=== PATIENT | female | born 1935 | race Caucasian/White ===

== ENCOUNTER 2017-04-06 18:38 | Observation (INO) | payer MEDICARE, SELFPAY ==
[2017-03-30 15:04] VITALS: BP 109/56; PULSE 84; RESP 16; TEMP 36.2; O2SAT 93; BMI 29.5
--- NOTE | 2017-03-30 15:11 | SDCEKG_ITS ---
Test Reason : Blood Pressure : / mmHG Vent. Rate : 079 BPM Atrial Rate : 079 BPM P-R Int : 190 ms QRS Dur : 178 ms QT Int : 466 ms P-R-T Axes : 005 -60 077 degrees QTc Int : 534 ms Normal sinus rhythm Left axis deviation Left bundle branch block Abnormal ECG Confirmed by BILLIE PUENTES, NAYAN ([id number]), design editor AKASH BENÍTEZ ([id number]) on 03/31/2017 1:47:31 PM Referred By: ROSHNI Confirmed By:NAYAN WISE MD
[2017-03-30 15:44] LABS: Hematocrit 43.4 % (37-47); Hemoglobin 14.7 g/dl (12.0-15.0); Mean Corp Hgb Conc 33.9 g/gl (32-36); Mean Corpuscular Hgb 30.2 pg (27.0-32.0); Mean Corpuscular Volume 89.3 fL (81-99); Mean Platelet Vol. 10.7 fl (6.2-12.0); Platelet Count 242 K/mm3 (150-450); RBC Distribution Width CV 12.6 % (11.6-14.6); RBC Distribution Width SD 40.5 fl (35.1-43.9); Red Blood Count 4.86 M/mm3 (4.2-5.4); White Blood Count 8.2 K/mm3 (4.4-11.0)
[2017-03-30 15:48] LABS: ALB/GLOB Ratio 0.9 RATIO (0.9-2.4); AST(SGOT) 13 U/L (15-37); Alanine Aminotransfer ALT/SGPT 19 U/L (12-78); Albumin, Serum 3.9 g/dL (3.4-5.0); Alkaline Phosphatase 99 U/L (45-117); Anion Gap 10 (5-15); BUN 21 mg/dL (7-18); BUN/Creat Ratio 20.4 RATIO (10-20); Calcium,Total 10.4 mg/dL (8.5-10.1); Chloride 102 mmol/L (98-107); Creatinine, Serum 1.03 mg/dL (0.55-1.02); EST Glomerular Filtration Rate 55 mL/min (>60); Est Glom Filt Rate - Afr Amer 66 mL/min (>60); Estimated Creatinine Clearance 30.77 ml/min; Globulin 4.2 g/dL (2.3-3.5); Glucose 173 mg/dL (70-110); Potassium 4.2 mmol/L (3.5-5.1); Protein, Total 8.1 g/dL (6.4-8.2); Sodium Level 138 mmol/L (136-145)
[2017-03-30 15:51] LABS: Scan Indicated on CBC? Y/N NO
[2017-03-31 16:16] LABS: International Normalized Ratio 1.1; Prothrombin Time (Protime)PT. 13.6 SECONDS (11.7-14.9)
[2017-04-03 14:49] LABS: Hemoglobin A1c 7.4 % (4.2-6.3)
[2017-04-06] VITALS (9 sets, daily range): BP systolic 102–156; BP diastolic 53–83; PULSE 64–80; RESP 14–18; TEMP 36.3–37.2; O2SAT 94–97; BMI 29.5; BMI 30.2
[2017-04-06 13:43] LABS: Partial Thromboplast Time 23.9 Seconds (24.1-36.2)
[2017-04-06] MEDS: Vasopressin 20 UNITS/ML Vial (15:01)
--- NOTE | 2017-04-06 15:01 | HYST_PTH ---
PATIENT: NICOLAS JACOBSON LOC: MS3 U#:[id number] AGE/SX: 81/F ROOM: [facility] RE04/06/[address]: Dr. Reena Mcgarry MD : 1935 BED: 1 DIS: 04/07/2017 SPEC #: [id number] RECD: 04/07/17 09:18 STATUS: LACIE PATELLiliana #: [id number] JOSUÉ: 04/06/17 15:[address]: Reena Ledbetter DEPT: SURGICAL PATHOLOGY RECD BY: Hero Zamora ENTERED: 04/07/17 11:48 SP TYPE: HYSTERECT OTHR DR: Dr. Maria Teresa Pedroza DO Tissues: A - Uterus, NOS B - Vagina, NOS Procedures: Surgery Specimen Level II Surgery Specimen Level V HEADER OPERATION: Hysterectomy, vaginal, A & P, bilateral salpingo-oophorectomy PRE-OP DIAGNOSIS: Uterine prolapse, cystocele, rectocele TISSUE SUBMITTED: A - Uterus, cervix, bilateral tubes and ovaries, B - Vaginal mucosa MICROSCOPIC DIAGNOSIS A. Cervix, hysterectomy: Cervix - hyperkeratosis, squamous metaplasia, nabothian cysts and chronic inflammation. Endometrium - multiple polyps with simple cystic hyperplasia without atypia. [place] endometrium with atrophy and cystic change. Myometrium - adenomyosis. Right and left ovaries - corpora albicantia and benign inclusion cysts. Right and left fallopian tubes - no pathologic change. B. Vaginal mucosa, anterior and posterior repair: Hyperkeratosis. No evidence of dysplasia. AM:nick 04/10/17 MICROSCOPIC DESCRIPTION Slides are reviewed. GROSS DESCRIPTION A - Received in fixative is one container labeled with the patient's name and designated uterus, cervix, bilateral fallopian tubes and ovaries. The specimen consists of a hysterectomy specimen consisting of uterus with cervix and detached bilateral fallopian tubes and ovaries. The uterus with cervix weighs 67 gm and measures 8.5 x 5 x 4 cm. The serosal surface is little, glistening. The external os is slit-like in contour. The endocervical canal measures 3 cm in length. The posterior endocervical wall shows a mucosal polyp measuring 1 cm in greatest dimension. The triangular endometrial cavity measures 4 cm in length and 3 cm in width. The endometrium shows multiple little polyps, the largest measuring 2.5 x 1.3 x 0.5 cm. The myometrial wall underneath the polyps is not indurated. The endometrium without polyps measures 0.1 cm in thickness. Polyps are noted both anterior and posterior wall. Sections of the uterine wall do not reveal any mass lesion. The uterine wall measures up to 1.3 cm in thickness. The fallopian tubes are not identified as right or left. One of the fallopian tubes measures 2.2 cm in length and 0.3 cm in diameter. The end is identified. Sections reveal unremarkable cut surfaces. The adjacent ovary measures 2.5 x 1.5 x 0.7 cm. Sections reveal unremarkable cut surfaces. The second fallopian tube consists of only fimbrial end and measures 1 x 0.5 x 0.3 cm. The adjacent ovary measures 2 x 1 x 0.7 cm. Sections reveal unremarkable cut surfaces. Housekeeping Staff sections are submitted in 12 cassettes as follows: 1 - anterior cervix, 2 - posterior cervix, 3-5 - anterior uterine wall, 6-10 - posterior uterine wall (entire endometrium including all the polyps are submitted), 11 - one fallopian tube and adjacent ovary, 12 - second fallopian tube and adjacent ovary. B - Received in fixative is one container labeled with the patient's name and designated vaginal mucosa. The specimen consists of multiple irregular fragments of mucosal tissue that in aggregate measure 7 x 5 x 2 cm. No mucosal lesion is identified. Multiple instrumentation tirado are noted. Housekeeping Staff sections are submitted in one cassette. / NAIDA:nick 04/07/17 TC:1 CPT: 74082, 90302
--- NOTE | 2017-04-06 17:58 | SUR.OPER ---
04/06/17 1758 - Liane Wilks - Registered Nurse: FAMILY GIVEN AN UPDATE ON THE STATUS OF THE PATIENT
[2017-04-06] MEDS: Estrogens,Conj. 1 Tube 1 DOSE (18:21)
[2017-04-06] MEDS: Ketorolac 15 MG/ML Vial IV (19:19)
[2017-04-06] MEDS: 0.9% Normal Saline 1,000 ML 100 ML IV (20:45)
[2017-04-06 22:26] LABS: Bedside Glucose 249 mg/dL (70-110)
[2017-04-07] MEDS: Ketorolac 15 MG/ML Vial IV ×2 (02:08→11:23)
[2017-04-07] MEDS: 0.9% NaCl Peripheral Flush Adult/Peds IV ×2 (02:09→11:23)
--- NOTE | 2017-04-07 05:31 | PCM.PN.OB ---
Subjective: Denies chest pain, shortness of breath. She has been out of bed. No flatus yet. Tolerating crackers PO. Denies pain and reports she feels well. Relates prior history of borderline diabetes on inquiry. Objective: AVSS - Physical Exam General: Alert, Oriented x3, Cooperative, No apparent distress HEENT: Atraumatic, Normocephalic Lungs: Clear to auscultation, Normal air movement, No rhonchi, No wheeze, No rales Cardiovascular: Regular rate, Regular Rhythm, Normal S1, Normal S2 Abdomen: Bowel Sounds Present, Soft, Non Tender, Non-Distended, - - Vaginal packing removed and approximately 80% saturated. Extremities: No edema, No Calf Tenderness Neurological: Neuro grossly intact Psych/Mental Status: Normal Affect, Appropriate, Alert and oriented to time, place, person, mood and affect Vital Signs Temp Pulse Resp BP Pulse Ox 99.0 F 77 16 114/63 95 04/06/17 23:57 04/06/17 23:57 04/06/17 23:57 04/06/17 23:57 04/06/17 23:57 Oxygen Flow Rate 2 Oxygen Delivery Method Nasal Cannula Weight: 70.1 kg Body Mass Index (BMI) 30.2 Intake and Output for Last 24 Hours 04/05/17 04/06/17 04/07/17 23:59 23:59 23:59 Intake Total 1300 933 Output Total 50 180 Balance 1250 753 Laboratory Tests Past 24 Hrs 04/06/17 13:15 APTT 23.9 L POC Glucose 04/06/17 22:17 POC Glucose 249 H Assessment/Plan 81yo POD#1 s/p TVH, BSO, AP repair doing well. -d/c IVF, Regular diet -Reviewed with patient HbA1C and blood sugars elevated c/w diabetes. Will start Metformin today, SSI as needed. Plan to follow up with PCP for further management. -Vaginal packing removed, will monitor pad counts -Urine output adequate, d/c pino -Resume home medications
[2017-04-07 06:00] VITALS: BP 119/61; PULSE 85; RESP 16; TEMP 37.1; O2SAT 95
[2017-04-07 06:29] LABS: Hematocrit 32.9 % (37-47); Hemoglobin 10.6 g/dl (12.0-15.0); Mean Corp Hgb Conc 32.2 g/gl (32-36); Mean Corpuscular Hgb 29.1 pg (27.0-32.0); Mean Corpuscular Volume 90.4 fL (81-99); Mean Platelet Vol. 10.9 fl (6.2-12.0); Platelet Count 184 K/mm3 (150-450); RBC Distribution Width CV 12.6 % (11.6-14.6); RBC Distribution Width SD 41.3 fl (35.1-43.9); Red Blood Count 3.64 M/mm3 (4.2-5.4); White Blood Count 10.1 K/mm3 (4.4-11.0)
[2017-04-07 06:30] LABS: Scan Indicated on CBC? Y/N NO
[2017-04-07 06:49] LABS: Anion Gap 13 (5-15); BUN 23 mg/dL (7-18); BUN/Creat Ratio 18.1 RATIO (10-20); Calcium,Total 8.7 mg/dL (8.5-10.1); Chloride 102 mmol/L (98-107); Creatinine, Serum 1.27 mg/dL (0.55-1.02); EST Glomerular Filtration Rate 43 mL/min (>60); Est Glom Filt Rate - Afr Amer 52 mL/min (>60); Estimated Creatinine Clearance 24.95 ml/min; Glucose 228 mg/dL (70-110); Potassium 4.5 mmol/L (3.5-5.1); Sodium Level 138 mmol/L (136-145)
[2017-04-07 06:56] LABS: Bedside Glucose 236 mg/dL (70-110)
[2017-04-07 07:00] VITALS: O2SAT 92
[2017-04-07] MEDS: Aspirin E.C. 81 MG Tablet PO (08:22)
[2017-04-07 09:42] VITALS: BP 124/62; PULSE 86; RESP 20; TEMP 37.3; O2SAT 93
[2017-04-07] MEDS: Ramipril 2.5 MG Capsule PO (09:45)
[2017-04-07] MEDS: Furosemide 40 MG Tablet PO (09:45)
[2017-04-07] MEDS: Carvedilol 25 MG Tablet PO (09:46)
[2017-04-07] MEDS: Enoxaparin 30 MG/0.3 ML Syringe SC (09:46)
[2017-04-07 11:21] LABS: Bedside Glucose 115 mg/dL (70-110)
--- NOTE | 2017-04-07 11:40 | CASEMGMT ---
AUDREY PICKENS meet with pt to discuss disposition plans. Pt is alert, oriented, and agreeable to participate in assessment. AUDREY PICKENS assessment complete. Please see link for further details. DISPOSITION: Pt to return home with help of her daughters post op care. Pt states she is normally independent at home - uses cane occ if out of apartment.
--- NOTE | 2017-04-07 13:37 | PCM.DC.VHY ---
Discharge Diet: Carb Control Diet Discharge Activity: Return to Normal Activity, May not drive while taking narcotic pain medications., May Shower, May Take a Tub Bath May resume sexual activity in: 6 weeks Lifting Restrictions: 10 lb Call your doctor if you observe: Fever of 101 or Higher, Inability to urinate, Inability to have a bowel movement, Using more than one pad per hour, Shortness of breath, Chest pain, Calf discomfort, Uncontrolled pain Suture Line Care: Avoid Pulling/Pushing Instructions: Eating Out When You Have Diabetes, Oral Medications for Type 2 Diabetes Allergies/Adverse Reactions: Allergies No Known Allergies Allergy (Verified 03/30/17 14:45) Medications to take at Discharge Aspirin E.C. [Ecotrin] 81 mg PO DAILY@0800 03/30/17 Carvedilol [Coreg (Beta Megan)] 25 mg PO DAILY 03/30/17 Furosemide [Lasix] 40 mg PO DAILY 03/30/17 Ramipril [Altace] 2.5 mg PO DAILY 03/30/17 Acetaminophen [Tylenol] 1,000 mg PO Q8H PRN PRN tablet 04/07/17 Docusate Sodium [Colace] 100 mg PO BID PRN PRN #60 capsule 04/07/17 GlyBURIDE [Micronase] 1.25 mg PO DAILY@0800 #30 tablet 04/07/17 Ibuprofen 600 mg PO TID PRN #30 tablet 04/07/17 Oxycodone [Oxyir] 5 - 10 mg PO Q4H PRN PRN tablet 04/07/17 Oxycodone [Oxyir] 5 mg PO Q6H PRN PRN #12 tablet 04/07/17 The following prescriptions were given: Oxycodone [Oxyir] 5 mg PO Q6H PRN PRN #12 tablet PRN Reason: Pain Docusate Sodium [Colace] 100 mg PO BID PRN PRN #60 capsule PRN Reason: Constipation GlyBURIDE [Micronase] 1.25 mg PO DAILY@0800 #30 tablet Ibuprofen 600 mg PO TID PRN #30 tablet PRN Reason: Pain Primary Care Physician: Maria Teresa Pedroza DO [Primary Care Provider] - Please follow up with your Primary Care Physician in: 2-4 weeks Please Follow Up With: Reena Garcia When: 04/20/17 2:15pm
[2017-04-07 13:40] VITALS: BP 107/53; PULSE 79; RESP 16; TEMP 36.9; O2SAT 93
--- NOTE | 2017-04-07 14:22 | OP.PCM_ITS ---
Problem List (1) Prolapse of female pelvic organs Status: Acute Qualifiers: Prolapse type: complete uterovaginal prolapse Qualified Code(s): N81.3 - Complete uterovaginal prolapse (2) Cystocele with rectocele Status: Acute Report of Operation Date of Procedure: 04/06/17 Pre-Operative Diagnosis: Uterovaginal prolapse, cystocele, rectocele Post-Operative Diagnosis: Uterovaginal prolapse, cystocele, rectocele Surgery/Procedure Performed:: Total vaginal hysterectomy, bilateral salpingo- oophorectomy, anterior and posterior repair, perineorrhaphy Description of Surgical Findings:: Normal tubes, uterus and ovaries. submarine element coordinator: Capo Hinds submarine element coordinator: Clarence Morelos Type of Anesthesia:: General Anesthesiologist: Kimberley Browning Specimen's removed: 1. uterus, tubes, ovaries. 2. vaginal mucosa Estimated Blood Loss (mL): 250 Description of Procedure: The patient was taken to the operating room and sent and was performed. She is placed in the dorsal supine position and induced under general anesthesia and intubated. She was then repositioned to dorsal lithotomy and an examination under anesthesia performed. The perineum was then prepped and draped in sterile fashion. A Joseph catheter was placed into the bladder. There was complete procidentia. Vasopressin was injected at the cervix. A circumferential incision was made along the cervix using a scalpel. The vesicovaginal space was developed using sharp dissection. Attention was also turned posteriorly to develop the rectal vaginal space and identified the posterior cul-de-sac peritoneum. This peritoneum was entered sharply. A long weighted speculum was placed into the posterior cul-de-sac. All sutures for the hysterectomy were 0 Vicryl. The uterosacral ligaments, cardinal ligaments, uterine vessels, and utero-ovarian ligaments were serially clamped cut and suture ligated using 0 Vicryl sutures. The uterus and cervix were excised at the cutting of the utero-ovarian ligaments. Attention was turned to the right adnexa. This was grasped using a Verónica clamp and the infundibulopelvic ligament was Constance clamps. The tube and ovary were excised. The pedicle was doubly suture ligated using 0 Vicryl with excellent hemostasis. In similar fashion attention was turned to the left adnexa and salpingo-oophorectomy was performed. Attention was turned to the cystocele. Vasopressin was injected for hydrodissection and hemostasis locally. The apical vaginal mucosa starting from the vaginal cuff was dissected from the underlying supportive tissue and the perpendicular incision was made at the midline to expose the cystocele sac. The cystocele was sharply and bluntly dissected off the vaginal mucosa. This required an extensive period of time as there was significant scarring suggesting prior surgery and the presence of what appeared to be sutures. The surrounding fascia was reapproximated using 2-0 Vicryl interrupted sutures to reduce the cystocele with significant improvement. The apical vaginal mucosa was reapproximated using 2-0 Vicryl to the level of the cuff. Attention was turned posteriorly. A rectovaginal exam was performed. The transverse incision was made at the distal vagina. The posterior vaginal mucosa was subsequently sharply dissected at the midline and superiorly from the underlying connective tissue and rectocele sac. A perpendicular incision was made to the previous one to expose the rectocele sac. The rectocele sac was further dissected from the vaginal mucosa. The fascia was reapproximated using 2-0 Vicryl with reduction of the rectocele. Rectal exam was performed and there was significant improvement. The vaginal mucosa was then reapproximated using 2-0 Vicryl to the level of the transverse incision. The incision was made along the perineum and the perineal skin excised. Perineorrhaphy was performed using a 2-0 Vicryl crown stitch and reapproximating the perineal skin subcuticularly. There is good hemostasis. The peritoneum apical to the vaginal cuff was pursestringed using 0 Vicryl and incorporating the uterosacral pedicles. The vaginal cuff was reapproximated using 0 Vicryl figure of 8 sutures. The vagina was packed using estrogen cream covered bulky light bandage. The procedure was complete. The sponge, instrument, and needle counts were correct ?2. - Admit VTE Documentation VTE Present on Admission: No VTE Mechan Device Prophylaxis: SCD's VTE Pharm Prophylaxis ordered?: No
--- NOTE | 2017-04-07 14:26 | PCM.DC.SUM ---
Discharge Date and Diagnosis - Problem List Patient Problems: Active and Suspected Problems Cystocele with rectocele (Acute) Prolapse of female pelvic organs (Acute) S/P vaginal hysterectomy (Acute) Date of Admission: 04/06/17 Date of Discharge: 04/07/17 - Primary Discharge Diagnosis Active and Suspected Problems Cystocele with rectocele (Acute) Prolapse of female pelvic organs (Acute) S/P vaginal hysterectomy (Acute) - Secondary Discharge Diagnosis Chronic Problems Benign essential HTN (Chronic) Chronic systolic CHF (congestive heart failure) (Chronic) EF 25% DM2 (diabetes mellitus, type 2) (Chronic) Dyslipidemia (Chronic) Hospital Course and Treatment Operations: - - Hysterectomy, bilateral salpingo-oophorectomy, anterior and posterior repair Procedures: None Summary of Care Provided: The patient is a 81 year old F admitted for scheduled surgery. She underwent a total vaginal hysterectomy, bilateral salpingo-oophorectomy, anterior repair, and posterior repair as planned. The procedure was uncomplicated. The patient was admitted to the floor. She was out of bed, ambulating, voiding, tolerating a regular diet, with pain well controlled. Her blood sugar was initially elevated thus she was started on glyburide 1.25 mg p.o. on postoperative day 1. She was discharged home on postoperative day 1. Discharge Diet: Carb Control Diet Discharge Activity: Return to Normal Activity, May not drive while taking narcotic pain medications., May Shower, May Take a Tub Bath May resume sexual activity in: 6 weeks Call your doctor if you observe: Fever of 101 or Higher, Inability to urinate, Inability to have a bowel movement, Using more than one pad per hour, Shortness of breath, Chest pain, Calf discomfort, Uncontrolled pain Suture Line Care: Avoid Pulling/Pushing Home Medications: Medications to take at Discharge Aspirin E.C. [Ecotrin] 81 mg PO DAILY@0800 03/30/17 Carvedilol [Coreg (Beta Megan)] 25 mg PO DAILY 03/30/17 Furosemide [Lasix] 40 mg PO DAILY 03/30/17 Ramipril [Altace] 2.5 mg PO DAILY 03/30/17 Acetaminophen [Tylenol] 1,000 mg PO Q8H PRN PRN tablet 04/07/17 Docusate Sodium [Colace] 100 mg PO BID PRN PRN #60 capsule 04/07/17 GlyBURIDE [Micronase] 1.25 mg PO DAILY@0800 #30 tablet 04/07/17 Ibuprofen 600 mg PO TID PRN #30 tablet 04/07/17 Oxycodone [Oxyir] 5 - 10 mg PO Q4H PRN PRN tablet 04/07/17 Oxycodone [Oxyir] 5 mg PO Q6H PRN PRN #12 tablet 04/07/17 Following Prescrptions Were Given to Patient: Oxycodone [Oxyir] 5 mg PO Q6H PRN PRN #12 tablet PRN Reason: Pain Docusate Sodium [Colace] 100 mg PO BID PRN PRN #60 capsule PRN Reason: Constipation GlyBURIDE [Micronase] 1.25 mg PO DAILY@0800 #30 tablet Ibuprofen 600 mg PO TID PRN #30 tablet PRN Reason: Pain Primary Care Physician: Maria Teresa Pedroza DO [Primary Care Provider] - Please follow up with your Primary Care Physician in: 2-4 weeks Please Follow Up With: Reena Garcia When: 04/20/17 2:15pm Patient Instructions: Oral Medications for Type 2 Diabetes, Eating Out When You Have Diabetes Meaningful Use Info Meaningful Use Diagnoses (Choose all that apply): None applicable
== END 2017-04-07 15:09 | disposition home or self-care (01) ==
LOC: MS3 09-27 13:17 → SDC 09-27 13:17
PROVIDERS: Admitting Provider Obstetrics & Gynecology; Family Provider Family Medicine; PCP Family Medicine; Visit Provider Obstetrics & Gynecology
DX: N81.3 Complete uterovaginal prolapse (principal); I44.7 Left bundle-branch block, unspecified; I25.10 Atherosclerotic heart disease of native coronary artery without angina pectoris; I11.0 Hypertensive heart disease with heart failure; E78.5 Hyperlipidemia, unspecified; I50.22 Chronic systolic (congestive) heart failure; Z95.810 Presence of automatic (implantable) cardiac defibrillator; Z79.899 Other long term (current) drug therapy
CPT/HCPCS: 57260; 58262; 36415; 80048; 80053; 82962; 83036; 85027; 85610; 85730; 86850; 86900; 88302; 88305; 88307; 93005; 96361; 96365; 96366; 96372; 96375; 96376; 99218; J7030; J7040; J7120; A4216; G0378; G0379; J2405

== ENCOUNTER → 2017-11-09 15:44 | Outpatient (CLI) | payer MEDICARE, SELFPAY ==
--- NOTE | 2017-11-09 12:20 | VUL_PTH ---
PATIENT: NICOLAS JACOBSON LOC: AMEENA U#:[id number] AGE/SX: 89/F ROOM: RE11/09/[address]: Dr. Reena Mcgarry MD : 1935 BED: DIS: SPEC #: [id number] RECD: 11/09/17 15:34 STATUS: LACIE URBANO #: [id number] JOSUÉ: 11/09/17 12:[address]: Reena Ledbetter DEPT: SURGICAL PATHOLOGY RECD BY: Chacorta Mccormick ENTERED: 11/10/17 09:25 SP TYPE: VULVA BX OTHR DR: Dr. Maria Teresa Pedroza DO Tissues: A - Labium, NOS B - Labium majus Procedures: Surgery Specimen Level IV HEADER OPERATION: Vulvar biopsy PRE-OP DIAGNOSIS: Pruritus, lichen sclerosus TISSUE SUBMITTED: A. Left labia, B. Right labial fold, majora MICROSCOPIC DIAGNOSIS A. Left labia, biopsy: Consistent with lichen sclerosus. B. Right labial fold, majora, biopsy: Consistent with lichen sclerosus. Hyperkeratosis. NAIDA:nick 11/13/17 MICROSCOPIC DESCRIPTION Slides are reviewed. GROSS DESCRIPTION A - Received in fixative is one container labeled with the patient's name and designated left labia. The specimen consists of a piece of little-white skin measuring 0.5 x 0.3 x 0.1 cm. The specimen is totally submitted in one cassette. B - Received in fixative is one container labeled with the patient's name and designated right labia. The specimen consists of a piece of little-white skin measuring 0.4 x 0.3 x 0.1 cm. The specimen is totally submitted in one cassette. / NAIDA:nick 11/10/17 TC:5 [facility]: [id number] x2
[2017-11-12 20:06] LABS: HSV 1 By PCR Negative (Negative)
[2017-11-13 09:07] LABS: HSV 2 By PCR Negative (Negative)
== END ==
PROVIDERS: Family Provider Family Medicine; PCP Family Medicine; Visit Provider Obstetrics & Gynecology
DX: N90.4 Leukoplakia of vulva (principal); L29.2 Pruritus vulvae; N94.89 Other specified conditions associated with female genital organs and menstrual cycle
CPT/HCPCS: 87529; 88305

== ENCOUNTER → 2018-03-22 08:05 | Outpatient (CLI) | payer MEDICARE, SELFPAY ==
[2018-03-22 09:48] LABS: Hemoglobin A1c 6.4 % (4.2-6.3)
[2018-03-22 09:57] LABS: Microalbumin:Creatinine Ratio 18.6 mg/g CRE (<30 mg/g CRE)
[2018-03-22 10:04] LABS: ALB/GLOB Ratio 0.8 RATIO (0.9-2.4); AST(SGOT) 19 U/L (15-37); Alanine Aminotransfer ALT/SGPT 20 U/L (13-56); Albumin, Serum 3.4 g/dL (3.2-5.0); Alkaline Phosphatase 81 U/L (45-117); Anion Gap 7 (5-15); BUN 25 mg/dL (7-18); BUN/Creat Ratio 20.5 RATIO (10-20); Calcium,Total 9.8 mg/dL (8.5-10.1); Chloride 104 mmol/L (98-107); Creatinine, Serum 1.22 mg/dL (0.55-1.02); EST Glomerular Filtration Rate 45 mL/min (>60); Est Glom Filt Rate - Afr Amer 54 mL/min (>60); Globulin 4.1 g/dL (2.2-4.2); Glucose 117 mg/dL (74-106); Potassium 4.2 mmol/L (3.5-5.1); Protein, Total 7.5 g/dL (6.4-8.2); Sodium Level 140 mmol/L (136-145)
== END ==
PROVIDERS: Family Provider Family Medicine; PCP Family Medicine; Visit Provider Family Medicine
DX: E11.65 Type 2 diabetes mellitus with hyperglycemia (principal)
CPT/HCPCS: 36415; 80053; 82043; 82570; 83036

== ENCOUNTER → 2018-05-31 14:01 | Outpatient (CLI) | payer MEDICARE, SELFPAY ==
[2018-05-31 16:12] LABS: Anion Gap 9 (5-15); BUN 17 mg/dL (7-18); Calcium,Total 10.2 mg/dL (8.5-10.1); Chloride 103 mmol/L (98-107); Creatinine, Serum 1.21 mg/dL (0.55-1.02); EST Glomerular Filtration Rate 45 mL/min (>60); Est Glom Filt Rate - Afr Amer 55 mL/min (>60); Glucose 138 mg/dL (74-106); Magnesium 2.1 mg/dL (1.6-2.6); Potassium 4.2 mmol/L (3.5-5.1); Sodium Level 136 mmol/L (136-145)
== END ==
PROVIDERS: Family Provider Family Medicine; PCP Family Medicine; Visit Provider Internal Medicine Cardiovascular Disease
DX: I10 Essential (primary) hypertension (principal); Z95.810 Presence of automatic (implantable) cardiac defibrillator
CPT/HCPCS: 36415; 80048; 83735; 84443

== ENCOUNTER → 2018-06-18 06:39 | Outpatient (CLI) | payer MEDICARE, SELFPAY ==
--- NOTE | 2018-06-18 06:41 | ECHOCS_ITS ---
Version 2 Reason For Study: Vfib Procedure This was a 2D Doppler, Color Flow transthoracic echocardiogram. Exam performed in department. Left Ventricle Moderately dilated left ventricle. The estimated ejection fraction is 25 %. Severe segmental systolic dysfunction (see wall motion). Transmitral and pulmonary venous doppler flow suggestive of impaired relaxation of left ventricle. Transmitral diastolic flow velocities suggest mild (stage 1) diastolic dysfunction (reversed pattern). There is severe global hypokinesis of the left ventricle. Right Ventricle Normal RV size. ICD or pacer leads identified within the right ventricle. mobile echogenic structure on the pacer lead. Normal systolic function. Atria Normal left atrium. Normal right atrium. Mitral Valve Mild diffuse mitral valve thickening. Mild (1+) eccentric mitral valve insufficiency. Tricuspid Valve Normal tricuspid valve. Mild (1+) tricuspid valve insufficiency. Pulmonary artery systolic pressure is 36 mmHg. Aortic Valve Normal aortic valve. Pulmonic Valve The pulmonic valve is not well visualized. Great Vessels Normal aortic root. The pulmonary artery is normal size. Normal inferior vena cava. Pericardium/Pleural No pericardial effusion. Medication Definity0.3ml given slow IV push to enhance endocardial definition. MMode/2D Measurements & Calculations LVIDd: 6.2 cm IVSd: 1.2 cm Ao root diam: 2.6 cm LVIDs: 5.7 cm LVPWd: 1.1 cm RVDd: 3.1 cm FS: 8.0 % LAV(MOD-bp): 45.6 ml LVAd ap4: 40.0 cm2 SV(MOD-sp4): 32.0 ml LAV(MOD-bp) Indexed: 26.9 ml/m2 EDV(MOD-sp4): 149.6 ml LAV(MOD-sp2): 55.1 ml EDV(sp4-el): 151.9 ml LAV(MOD-sp4): 38.0 ml LVAs ap4: 34.4 cm2 ESV(MOD-sp4): 117.6 ml ESV(sp4-el): 117.8 ml EF(MOD-sp4): 21.4 % EF(sp4-el): 22.5 % SV(sp4-el): 34.2 ml LA A4 area: 15.1 cm2 RA A4 area: 12.2 cm2 Doppler Measurements & Calculations MV E max grey: 96.6 cm/sec Lat Peak E' Grey: 9.0 cm/sec Med Peak E' Grey: 8.3 cm/sec MV A max grey: 144.9 cm/sec E/E' lat: 10.8 E/E' med: 11.6 MV E/A: 0.67 Ao V2 max: 150.8 cm/sec LV V1 max: 98.8 cm/sec PA V2 max: 94.3 cm/sec Ao max P.1 mmHg LV V1 max P.9 mmHg Ao V2 mean: 111.7 cm/sec Ao mean P.3 mmHg Ao V2 VTI: 30.9 cm TR max grey: 284.0 cm/sec TR max P.3 mmHg Interpretation Summary Moderately dilated left ventricle. The estimated ejection fraction is 25 %. Severe segmental systolic dysfunction (see wall motion). Transmitral diastolic flow velocities suggest mild (stage 1) diastolic dysfunction (reversed pattern). Mild (1+) tricuspid valve insufficiency. Pulmonary artery systolic pressure is 36 mmHg. Mobile echogenic structure on the pacer lead.- likely thrombus Ordering Physician: Mukul Lunsford Referring Physician: Mukul Lunsford Performed By: Michelle Portillo, DANIEL, RVT
--- NOTE | 2018-06-18 09:09 | STRESSREP ---
Stress Test Report Pharmacologic myocardial perfusion stress test. 82-year-old lady with a history of nonischemic cardiomyopathy and ICD shock. Stress protocol: Resting EKG demonstrates normal sinus rhythm with a rate of 82 bpm left bundle branch block is noted. Resting blood pressure 130/80 mmHg. 0.4 mg of regadenoson was infused per usual protocol followed by rapid intravenous saline flush injection. Continuous EKG monitoring was performed. The maximum heart rate attained was 98 bpm which was 71% of maximum predicted heart rate the maximum workload was 1 metabolic equivalent. The patient maintained sinus rhythm throughout the recording with a left bundle branch block pattern. No changes could be noted. Myocardial perfusion protocol. 10.0 mCi of technetium 99m sestamibi was injected at rest. 0.4 mg of regadenoson was infused per usual protocol peak infusion 30.5 mCi of technetium 99m sestamibi was injected stress images were obtained stress and rest images were reconstructed and compared in the short axis vertical long horizontal long axis. Gated images were also obtained per Perfusion SPECT analysis: Review of the images demonstrate reduced perfusion noted involving the anterior apical apex and lateral apical mena. The rest of the mena appear to be fairly well perfused. This is present on the stress and rest images to a similar extent. No obvious reversibility is noted suggest ischemia. Gated SPECT analysis: The gated ejection fraction is 29% with a dyskinetic apex. Conclusion: Cardiomyopathy present. No obvious coronary ischemia present. Previous apical infarct cannot be completely excluded.
== END ==
PROVIDERS: Family Provider Family Medicine; PCP Family Medicine; Referring Provider Internal Medicine Cardiovascular Disease; Visit Provider Internal Medicine Cardiovascular Disease
DX: I25.10 Atherosclerotic heart disease of native coronary artery without angina pectoris (principal); I11.0 Hypertensive heart disease with heart failure; I50.22 Chronic systolic (congestive) heart failure; I27.20 Pulmonary hypertension, unspecified; I49.01 Ventricular fibrillation; I44.7 Left bundle-branch block, unspecified; I34.0 Nonrheumatic mitral (valve) insufficiency; I42.0 Dilated cardiomyopathy; I47.2 Ventricular tachycardia; Z95.810 Presence of automatic (implantable) cardiac defibrillator
CPT/HCPCS: 78452; 93017; 93306; A9500; Q9957; A4216; C8929; J2785

== ENCOUNTER → 2018-11-01 09:33 | Outpatient (CLI) | payer MEDICARE, SELFPAY ==
[2018-08-31 10:44] VITALS: BMI 32.2
[2018-11-01 11:19] LABS: Absolute Neutrophil Count 3.3 X10^3/uL (2.0-7.7); Basophil# 0.02 X10^3/uL; Basophil% 0.3 % (0-1); Eosinophil# 0.42 X10^3/uL; Eosinophils% 5.8 % (0-5); Hematocrit 43.3 % (37-47); Hemoglobin 13.8 g/dl (12.0-15.0); Lymphocyte % 42.5 % (19-41); Mean Corp Hgb Conc 31.9 g/gl (32-36); Mean Corpuscular Hgb 29.1 pg (27.0-32.0); Mean Corpuscular Volume 91.4 fL (81-99); Mean Platelet Vol. 11.2 fl (6.2-12.0); Monocyte# 0.49 X10^3/uL; Monocyte% 6.7 % (0-10); Neutrophil # 3.26 X10^3/uL (2.7-7.7); Neutrophil % 44.6 % (47-70); POSITIVE COUNT NO; POSITIVE DIFFERENTIAL NO; POSITIVE MORPHOLOGY NO; Platelet Count 191 K/mm3 (150-450); RBC Distribution Width SD 42.9 fl (35.1-43.9); Red Blood Count 4.74 M/mm3 (4.2-5.4); White Blood Count 7.3 K/mm3 (4.4-11.0)
[2018-11-01 11:54] LABS: ALB/GLOB Ratio 0.9 RATIO (0.9-2.4); AST(SGOT) 17 U/L (15-37); Alanine Aminotransfer ALT/SGPT 22 U/L (13-56); Albumin, Serum 3.6 g/dL (3.2-5.0); Alkaline Phosphatase 89 U/L (45-117); Anion Gap 11 (5-15); BUN 19 mg/dL (7-18); BUN/Creat Ratio 16.5 RATIO (10-20); Calcium,Total 9.9 mg/dL (8.5-10.1); Chloride 106 mmol/L (98-107); Cholesterol 195 mg/dL (200); Creatinine, Serum 1.15 mg/dL (0.55-1.02); EST Glomerular Filtration Rate 48 mL/min (>60); Est Glom Filt Rate - Afr Amer 58 mL/min (>60); Globulin 4.1 g/dL (2.2-4.2); Glucose 123 mg/dL (74-106); High Density Lipoprotein 41 mg/dL; Potassium 4.2 mmol/L (3.5-5.1); Protein, Total 7.7 g/dL (6.4-8.2); Sodium Level 143 mmol/L (136-145); Triglycerides 85 mg/dL; Very Low Density Lipoprotein 17 mg/dL (5-40)
[2018-11-01 12:16] LABS: Hemoglobin A1c 6.7 % (4.2-6.3)
== END ==
PROVIDERS: Family Provider Family Medicine; PCP Family Medicine; Referring Provider Family Medicine; Visit Provider Family Medicine
DX: E11.9 Type 2 diabetes mellitus without complications (principal); E78.5 Hyperlipidemia, unspecified; Z51.81 Encounter for therapeutic drug level monitoring
CPT/HCPCS: 36415; 80053; 80061; 83036; 85025

== ENCOUNTER → 2019-04-05 08:35 | Outpatient (CLI) | payer MEDICARE, SELFPAY ==
[2019-03-21 11:21] VITALS: BMI 31.8
--- NOTE | 2019-04-05 08:38 | ECHOL_ITS ---
Reason For Study: RV LEAD THROMBUS Procedure This was a limited 2D transthoracic echocardiogram. Exam performed in department. Left Ventricle Normal LV size. Apical false tendon noted. Moderately severe global left ventricular systolic dysfunction. The estimated ejection fraction is 30 %. There is moderate to severe global hypokinesis of the left ventricle. Right Ventricle Normal RV size. ICD or pacer leads identified within the right ventricle. Normal systolic function. Mitral Valve Normal mitral valve. Tricuspid Valve Normal tricuspid valve. Mild tricuspid valve insufficiency. Aortic Valve Normal aortic valve. Pulmonic Valve Normal pulmonic valve. Great Vessels Normal aortic root. The pulmonary artery is normal size. Normal inferior vena cava. MMode/2D Measurements & Calculations LVIDd: 4.6 cm IVSd: 0.98 cm LAV(MOD-bp): 43.5 ml LVIDs: 4.0 cm LVPWd: 1.1 cm LAV(MOD-bp) Indexed: 25.5 ml/m2 RVDd: 3.0 cm FS: 13.4 % LAV(MOD-sp2): 45.9 ml LAV(MOD-sp4): 42.0 ml LVAd ap4: 47.4 cm2 SV(MOD-sp4): 45.9 ml SV(sp4-el): 54.4 ml EDV(MOD-sp4): 201.0 ml EDV(sp4-el): 213.8 ml LVAs ap4: 40.8 cm2 ESV(MOD-sp4): 155.1 ml ESV(sp4-el): 159.3 ml EF(MOD-sp4): 22.9 % EF(sp4-el): 25.5 % LA A4 area: 15.9 cm2 RA A4 area: 13.5 cm2 Doppler Measurements & Calculations TR max nicolas: 237.7 cm/sec TR max P.6 mmHg Interpretation Summary Normal LV size. Moderately severe global left ventricular systolic dysfunction. Mild tricuspid valve insufficiency. Mobile filamentous structure noted on the RV lead. Not any worse. Ordering Physician: Mukul Lunsford Referring Physician: ARNIE CARPIO Performed By: Ava Burks, RDCS, RVT
== END ==
PROVIDERS: Family Provider Family Medicine; PCP Family Medicine; Referring Provider Internal Medicine Cardiovascular Disease; Visit Provider Internal Medicine Cardiovascular Disease
DX: I42.8 Other cardiomyopathies (principal)
CPT/HCPCS: 93308

== ENCOUNTER → 2020-04-29 08:33 | Outpatient (CLI) | payer MEDICARE, SELFPAY ==
[2019-09-23 08:42] VITALS: BMI 32.5
[2020-04-29 09:28] LABS: Absolute Lymphocyte Count 3.25 X10^3/uL (0.83-4.51); Basophil# 0.03 X10^3/uL; Basophil% 0.4 % (0-1); Eosinophil# 0.38 X10^3/uL; Eosinophils% 5.4 % (0-5); Hematocrit 40.2 % (37-47); Hemoglobin 13.5 g/dL (12.0-15.0); Lymphocyte # 3.25 X10^3/ul (4.0); Lymphocyte % 46.2 % (19-41); Mean Corp Hgb Conc 33.6 g/dL (32-36); Mean Corpuscular Hgb 30.1 pg (27.0-32.0); Mean Corpuscular Volume 89.7 fL (81-99); Mean Platelet Vol. 9.9 fl (6.2-12.0); Monocyte# 0.39 X10^3/uL; Monocyte% 5.5 % (0-10); NRBC Flagged by Analyzer 0 % (0-5); Neutrophil # 2.97 X10^3/uL (2.7-7.7); Neutrophil % 42.2 % (47-70); Platelet Count 221 K/mm3 (150-450); RBC Distribution Width CV 12.3 % (11.6-14.6); RBC Distribution Width SD 39.9 fl (35.1-43.9); Red Blood Count 4.48 M/mm3 (4.2-5.4)
[2020-04-29 09:50] LABS: Hemoglobin A1c 6.5 % (3.8-5.6)
[2020-04-29 09:54] LABS: Microalbumin,Random Urine 81.6 mg/L (NO RANGE EST.); Microalbumin:Creatinine Ratio 68.6 mg/g CRE (<30 mg/g CRE)
[2020-04-29 10:00] LABS: ALB/GLOB Ratio 0.8 RATIO (0.9-2.4); AST(SGOT) 14 U/L (15-37); Alanine Aminotransfer ALT/SGPT 17 U/L (13-56); Albumin, Serum 3.4 g/dL (3.2-5.0); Alkaline Phosphatase 77 U/L (45-117); Anion Gap 4 (5-15); BUN 23 mg/dL (7-18); BUN/Creat Ratio 22.8 RATIO (10-20); Calcium,Total 9.9 mg/dL (8.5-10.1); Chloride 111 mmol/L (98-107); Cholesterol 210 mg/dL (200); Creatinine, Serum 1.01 mg/dL (0.55-1.02); EST Glomerular Filtration Rate 55 mL/min (>60); Est Glom Filt Rate - Afr Amer 67 mL/min (>60); Glucose 133 mg/dL (74-106); High Density Lipoprotein 43 mg/dL; Potassium 4.3 mmol/L (3.5-5.1); Protein, Total 7.4 g/dL (6.4-8.2); Sodium Level 141 mmol/L (136-145); Triglycerides 101 mg/dL; Very Low Density Lipoprotein 20 mg/dL (5-40)
== END ==
PROVIDERS: PCP Family Medicine; Referring Provider Family Medicine; Visit Provider Family Medicine
DX: E11.9 Type 2 diabetes mellitus without complications (principal); E78.5 Hyperlipidemia, unspecified; I10 Essential (primary) hypertension; Z51.81 Encounter for therapeutic drug level monitoring; Z79.01 Long term (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 of anticoagulants
CPT/HCPCS: 36415; 80053; 80061; 82043; 82570; 83036; 85025

== ENCOUNTER → 2020-11-25 15:15 | Outpatient (CLI) | payer MEDICARE, SELFPAY ==
[2020-11-11 13:37] VITALS: BMI 30.2
[2020-11-25 17:22] LABS: Absolute Lymphocyte Count 3.08 X10^3/uL (0.83-4.51); Absolute Neutrophil Count 4.4 X10^3/uL (2.0-7.7); Basophil# 0.03 X10^3/uL; Basophil% 0.4 % (0-1); Eosinophil# 0.31 X10^3/uL; Eosinophils% 3.7 % (0-5); Lymphocyte # 3.08 X10^3/ul (4.0); Mean Corp Hgb Conc 32.6 g/dL (32-36); Mean Corpuscular Hgb 29.6 pg (27.0-32.0); Mean Corpuscular Volume 90.9 fL (81-99); Monocyte# 0.47 X10^3/uL; Monocyte% 5.6 % (0-10); NRBC Flagged by Analyzer 0 % (0-5); Neutrophil # 4.43 X10^3/uL (2.7-7.7); Neutrophil % 53.2 % (47-70); Platelet Count 236 K/mm3 (150-450); RBC Distribution Width CV 12.4 % (11.6-14.6); Red Blood Count 4.73 M/mm3 (4.2-5.4); White Blood Count 8.3 K/mm3 (4.4-11.0)
[2020-11-25 18:09] LABS: ALB/GLOB Ratio 0.9 RATIO (0.9-2.4); AST(SGOT) 16 U/L (15-37); Alanine Aminotransfer ALT/SGPT 20 U/L (13-56); Albumin, Serum 3.5 g/dL (3.2-5.0); Alkaline Phosphatase 92 U/L (45-117); Anion Gap 5 (5-15); BUN 23 mg/dL (7-18); BUN/Creat Ratio 21.5 RATIO (10-20); Calcium,Total 10.2 mg/dL (8.5-10.1); Chloride 105 mmol/L (98-107); Creatinine, Serum 1.07 mg/dL (0.55-1.02); EST Glomerular Filtration Rate 52 mL/min (>60); Est Glom Filt Rate - Afr Amer 63 mL/min (>60); Glucose 114 mg/dL (74-106); Potassium 4.2 mmol/L (3.5-5.1); Protein, Total 7.5 g/dL (6.4-8.2); Sodium Level 139 mmol/L (136-145); T4 Free Direct 1.15 ng/dL (0.76-1.46); Thyroid Stim Hormone (TSH) 1.33 uIU/mL (0.358-3.74)
[2020-11-25 18:12] LABS: Hemoglobin A1c 6.2 % (3.8-5.6)
[2020-11-25 18:25] LABS: Microalbumin,Random Urine 35.2 mg/L (NO RANGE EST.); Microalbumin:Creatinine Ratio 61.3 mg/g CRE (<30 mg/g CRE)
== END ==
PROVIDERS: Nurse Practitioner Family; PCP Family Medicine; Visit Provider Family Medicine
DX: E11.9 Type 2 diabetes mellitus without complications (principal); R80.9 Proteinuria, unspecified; I44.7 Left bundle-branch block, unspecified; I47.2 Ventricular tachycardia; I11.0 Hypertensive heart disease with heart failure; I50.22 Chronic systolic (congestive) heart failure; I25.10 Atherosclerotic heart disease of native coronary artery without angina pectoris; T85.868A Thrombosis due to other internal prosthetic devices, implants and grafts, initial encounter; I42.8 Other cardiomyopathies; E78.5 Hyperlipidemia, unspecified; Z51.81 Encounter for therapeutic drug level monitoring
CPT/HCPCS: 80053; 82043; 82570; 83036; 83735; 84439; 84443; 85025

== ENCOUNTER 2020-12-29 16:15 | Inpatient (IN) | payer MEDICARE, SELFPAY ==
[2020-11-11 13:37] VITALS: BMI 30.2
[2020-12-29] VITALS (10 sets, daily range): BP systolic 104–141; BP diastolic 57–93; PULSE 94–114; RESP 16–24; TEMP 36.5–36.6; O2SAT 96–99; BMI 28.5; BMI 30.2
--- NOTE | 2020-12-29 16:25 | EKG12_ITS ---
Test Reason : Blood Pressure : / mmHG Vent. Rate : 115 BPM Atrial Rate : 115 BPM P-R Int : 000 ms QRS Dur : 186 ms QT Int : 434 ms P-R-T Axes : 000 -60 067 degrees QTc Int : 600 ms Wide QRS rhythm ; Likely Sinus Tachycardia Left axis deviation Left bundle branch block Abnormal ECG Confirmed by BRANDY PUENTES, DONNY ([id number]), continuity editor ALEJANDRO MARTINES ([id number]) on 01/01/2021 8:04:29 AM Referred By: TEREZA Confirmed By:JAYLENE NAVA MD
--- NOTE | 2020-12-29 16:28 | ED.VIS.GEN ---
History of Present Illness Chief Complaint: GI Bleed Informant: Patient Onset: Yesterday - Any dark coffee-ground material last evening, Days - Black stools noted 2 days ago Context: Sudden Onset Timing: Intermittent Quality: GI bleed Location: Upper Current Severity: Moderate Maximum Severity: Moderate Worsened by: Patient on Eliquis Relieved by: Nothing Associated Symptoms: Orthostatic symptoms Narrative: She is 85-year-old woman who states she is on Eliquis because she had a clot related to her pacemaker that was placed in 2014. She states the stone banker that placed the pacemaker was from [employer]. She denies fever, chills night sweats. Denies ocular, visual or auditory symptoms. She denies chest discomfort or dyspnea on exertion. She does report lightheadedness with standing. She denies abdominal pain. Denies back pain. She denies dysuria, frequency, urgency or hematuria. She denies bruising easily. She has no other complaints. 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 Denies: Chills, Fever, Subjective, Sweats Eyes: Denies: Visual changes - bilaterally, Blurred Vision - bilaterally ENT: Denies: Bilateral ear pain, Right ear pain, Rhinorrhea Cardiovascular: Denies: Chest pain, Palpitations Respiratory: Denies: Dyspnea, Cough, Dyspnea on exertion Gastrointestinal: Reports: Nausea, Vomiting, Melena. Denies: Abdominal pain, Diarrhea, Constipation, Hematochezia Genitourinary: Denies: Dysuria, Hematuria, Frequency Musculoskeletal: Denies: Myalgias, Arthralgias, Neck pain, Back pain, Swelling, Extremity Pain, -, - Skin: Denies: Rash, Wounds Neurological: Denies: Headache, Weakness, Numbness Psych: Denies: Depression Hematologic: Denies: Easy bruising, Easy bleeding Allergy: Denies: Uticaria Physical Exam Vital Signs/Narrative: Vital Signs Temp Pulse Resp BP Pulse Ox 12/29/20 16:16 98 F 114 H 18 129/90 H 99 Inital Vital Signs reviewed: Yes General: Well nourished, Well developed, No Acute Distress Head: Normocephalic, Atraumatic Eyes: Perrl, EOMI. Negative for: Pale conjunctiva, Scleral icterus ENT: Moist mucous membranes, No rhinorrhea, TM's clear Neck: Supple, Nontender, No lymphadenopathy, No JVD Cardiovascular: Regular rhythm, No murmurs, Normal S1, Normal S2, Tachycardia Respiratory: No distress, CTA bilaterally, Chest nontender Abdomen: Soft, Nontender, Nondistended, Normal bowel sounds Back: Nontender, Normal Inspection Extremities: Nontender, No edema Skin: Normal color, No rash Neurological: Alert, Oriented x3, Cranial nerves II-XII grossly intact, Normal Strength, Normal Sensation Psychological: Normal affect, Normal Mood Diagnostic/Tx/Re-eval Laboratory Results 12/29/20 12/29/20 12/29/20 16:55 16:55 16:55 WBC 10.2 RBC 3.49 L Hgb 10.6 L Hct 31.6 L MCV 90.5 MCH 30.4 MCHC 33.5 RDW Std Deviation 41.2 RDW Coeff of Keren 12.7 Plt Count 221 MPV 11.1 Immature Gran % (Auto) 0.400 Neut % (Auto) 61.6 Lymph % (Auto) 34.3 [place] % (Auto) 3.2 Eos % (Auto) 0.2 Baso % (Auto) 0.3 Absolute Neuts (auto) 6.3 Absolute Lymphs (auto) 3.51 Nucleated RBC % 0 Sodium 141 Potassium 4.1 Chloride 107 Carbon Dioxide 25.0 Anion Gap 9 BUN 60 H Creatinine 1.10 H Estim Creat Clear Calc 29.57 Est GFR (MDRD) Af Amer 61 Est GFR (MDRD) Non-Af 50 L BUN/Creatinine Ratio 54.5 H Glucose 195 H Lactic Acid 2.4 H* Calcium 9.7 Total Bilirubin 0.70 AST 10 L ALT 18 Alkaline Phosphatase 71 Troponin I 0.020 Total Protein 6.7 Albumin 3.3 Globulin 3.4 Albumin/Globulin Ratio 1.0 - EKG Initial EKG Interpretation: Sinus Tachycardia - This tachycardia with a ventricular rate of 115. QRS duration 186 ms and has configuration of left bundle branch block. QT interval 434 ms. [place] to the left. - Medical Decision Making Presents with history and physical findings with upper GI bleed. She is tachycardic. Will obtain basic baseline blood work and type and screen. She received IV Protonix. Case was discussed with Dr. Xiang Robledo who will scope her tomorrow. - Critical Care Time Critical care time (excluding procedures): 30-74 minutes - Critical care time 36 minutes which included obtaining history, physical exam, documentation, review of prior records and labs, interpretation of laboratory results, consultation with surgery for EGD and hospitalist for admission, Discussing w/Patient &/or Family/Market President, Discussing w/Consultants, Arranging Admission or Transfer ED Disposition - Plan for ED Patient: Disposition: Acute Care Hospital [facility] Diagnosis: Hemorrhagic shock, Upper GI bleed, Anemia due to blood loss, acute, Lactic acidosis, Sinus tachycardia, Nonischemic cardiomyopathy, Atherosclerotic heart disease of [place] coronary artery without angina pectoris, residential (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 of anticoagulants Referrals: Maria Teresa Pedroza DO [Primary Care Provider] -
[2020-12-29] MEDS: 0.9% Normal Saline 1,000 ML 1000 ML IV (17:07)
[2020-12-29 17:14] LABS: Absolute Lymphocyte Count 3.51 X10^3/uL (0.83-4.51); Absolute Neutrophil Count 6.3 X10^3/uL (2.0-7.7); Basophil# 0.03 X10^3/uL; Basophil% 0.3 % (0-1); Eosinophil# 0.02 X10^3/uL; Eosinophils% 0.2 % (0-5); Hematocrit 31.6 % (37-47); Hemoglobin 10.6 g/dL (12.0-15.0); Lymphocyte # 3.51 X10^3/ul (0.83-4.51); Lymphocyte % 34.3 % (19-41); Mean Corp Hgb Conc 33.5 g/dL (32-36); Mean Corpuscular Hgb 30.4 pg (27.0-32.0); Mean Corpuscular Volume 90.5 fL (81-99); Mean Platelet Vol. 11.1 fl (6.2-12.0); Monocyte# 0.33 X10^3/uL; Monocyte% 3.2 % (0-10); NRBC Flagged by Analyzer 0 % (0-5); Neutrophil # 6.31 X10^3/uL (2.7-7.7); Neutrophil % 61.6 % (47-70); Platelet Count 221 K/mm3 (150-450); RBC Distribution Width CV 12.7 % (11.6-14.6); RBC Distribution Width SD 41.2 fl (35.1-43.9); Red Blood Count 3.49 M/mm3 (4.2-5.4); White Blood Count 10.2 K/mm3 (4.4-11.0)
[2020-12-29 17:37] LABS: AST(SGOT) 10 U/L (15-37); Alanine Aminotransfer ALT/SGPT 18 U/L (13-56); Albumin, Serum 3.3 g/dL (3.2-5.0); Alkaline Phosphatase 71 U/L (45-117); Anion Gap 9 (5-15); BUN 60 mg/dL (7-18); BUN/Creat Ratio 54.5 RATIO (10-20); Calcium,Total 9.7 mg/dL (8.5-10.1); Chloride 107 mmol/L (98-107); EST Glomerular Filtration Rate 50 mL/min (>60); Est Glom Filt Rate - Afr Amer 61 mL/min (>60); Estimated Creatinine Clearance 29.57 ml/min; Globulin 3.4 g/dL (2.2-4.2); Glucose 195 mg/dL (74-106); Potassium 4.1 mmol/L (3.5-5.1); Protein, Total 6.7 g/dL (6.4-8.2); Sodium Level 141 mmol/L (136-145)
[2020-12-29 17:52] LABS: Lactic Acid 2.4 mmol/L (0.4-1.9)
--- NOTE | 2020-12-29 18:13 | PCM.HP.STD ---
History of Present Illness Date of Admission: 12/29/20 Chief Complaint: GI bleed The patient is a 85 year old F with a PMH as outlined who was admitted on Coumadinvia the ED with a complaint of dark stools and coffee ground emesis. Symptoms started about 2 days prior to admission. Says she has had several episodes of dark stools and also had several episodes of coffee-ground vomiting. She denied any lightheadedness or dizziness, denied any palpitations or abdominal pain. She also denied any bright red blood per rectum. Patient is on Eliquis which she says she takes because she had a blood clot on her pacemaker about 2 years ago. She also admits to taking [id number] pain medication at least once every week because of chronic back pain. Review of symptoms otherwise negative. She tells me she has never had any EGD or colonoscopy before. She also does not have any history of GI bleed. In the ED, temperature was 98 Fahrenheit with blood pressure of 129/90 and pulse rate of 114. Respiratory rate was 18. She was satting at 99% on room air. Chemistry showed creatinine of 1.1 and lactic acid of 2.4. CBC showed hemoglobin of 10.6, with previous hemoglobin done on 11/25/2020 being 14. Her baseline seems to be around 13-14. She has been admitted to be managed for upper GI bleed probably due to peptic ulcer disease. She was started on pantoprazole drip in the ED. 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, implant or graft (Chronic) RV pacemaker lead Atherosclerotic heart disease of [place] coronary artery without angina pectoris (Chronic) Left bundle-branch block (Chronic) Ventricular tachycardia (Chronic) Dyslipidemia (Chronic) Medical History: Medical History (Last Reviewed 11/11/20 @ 13:37 by Wilmer Portillo NP, PUBLIC ADDRESS TECHNICIAN-C) Nonischemic cardiomyopathy (Chronic) I42.8 Chronic systolic (congestive) heart failure (Chronic) I50.22 Essential (primary) hypertension (Chronic) I10 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, implant or graft (Chronic) T85.868A RV pacemaker lead Atherosclerotic heart disease of [place] coronary artery without angina pectoris (Chronic) I25.10 Left bundle-branch block (Chronic) I44.7 Ventricular tachycardia (Chronic) I47.2 Dyslipidemia (Chronic) E78.5 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, N81.6 DM2 (diabetes mellitus, type 2) E11.9 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 Allergies No Known Allergies Allergy (Verified 12/29/20 16:16) Home Medications: Ambulatory Orders Medication Instructions Recorded Acetaminophen [Tylenol] 1,000 mg PO Q8H PRN PRN tab 04/07/17 glimepiride 1 mg tablet PO 14 Days #14 01/10/18 Handicap Parking Placard #1 ea 05/11/20 apixaban 5 mg tablet 5 mg PO BID #180 tab 08/17/20 carvedilol 25 mg tablet 25 mg PO BID #180 tab 10/02/20 ramipril 2.5 mg capsule 2.5 mg PO DAILY #90 cap 10/16/20 furosemide 40 mg tablet 40 mg PO DAILY #90 tab 11/11/20 Surgical History: Surgical History (Last Reviewed 11/11/20 @ 13:37 by Wilmer Portillo PUBLIC ADDRESS TECHNICIAN, PUBLIC ADDRESS TECHNICIAN-C) History of implantable cardiac defibrillator (ICD) (Chronic) Onset Date: 01/31/13 Cataract H26.9 H/O tubal ligation Z98.51 H/O: hysterectomy Z90.710 History of hip replacement Z96.649 History of left heart catheterization Onset Date: 12/17/12 Z98.890 S/P vaginal hysterectomy Surgical History: - - Pacemaker Lives: Alone Smoking Status: Never smoker Alcohol: None Drugs: None Review of Systems Constitutional: Denies: Chills, Fever, Malaise, Weakness, Weight Change HEENT: Denies: Head Aches, Sinus Congestion, Sinus Drainage Cardiovascular: Denies: Chest Pain, Palpitations Respiratory: Denies: Cough, Shortness of Breath, Shortness of breath at rest, Shortness of breath upon exertion, Sputum production Gastrointestinal: Reports: Hematemesis, Hematochezia, Melena. Denies: Abdominal Pain, Nausea, Vomiting Genitourinary: Denies: Dysuria Musculoskeletal: Denies: Joint Pain, Joint Tenderness Skin: Denies: Rash, Wounds Neurological: Denies: Numbness, Tingling, Focal weakness Psychiatric: Denies: Anxiety, Depression, Homicidal Ideations, Suicidal Ideations Hematologic/ Lymphatic: Denies: Easy Bruising, Easy Bleeding VTE Information - Inpt Only VTE Present on Admission: No VTE Pharm Prophylaxis ordered?: No Reason prophylaxis not ordered:: Medical Contraindication - GI bleed Patient Problems: Active and Suspected Problems (Last Reviewed 11/11/20 @ 13:37 by Wilmer Portillo PUBLIC ADDRESS TECHNICIAN, PUBLIC ADDRESS TECHNICIAN-C) Hemorrhagic shock (Acute) Upper GI bleed (Acute) Anemia due to blood loss, acute (Acute) Lactic acidosis (Acute) Sinus tachycardia (Acute) [facility] (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 of anticoagulants (Acute) - Physical Exam Vitals/I&O's: Vital Signs Temp Pulse Resp BP Pulse Ox 98 F 114 H 18 129/90 H 99 12/29/20 16:16 12/29/20 16:16 12/29/20 16:16 12/29/20 16:16 12/29/20 16:16 Oxygen Delivery Method Room Air Weight: 155 lb 12.8 oz Body Mass Index (BMI) 28.5 Intake and Output for Last 24 Hours 12/27/20 12/28/20 12/29/20 23:59 23:59 23:59 Intake Total 35 / 35 Balance 35 / 35 General: Alert, Oriented x3, Cooperative, No apparent distress HEENT: Atraumatic, PERRLA, EOMI, Normocephalic Oral: Dry Mucosa Neck: Supple, No JVD, Negative Carotid Bruits Lungs: Clear to auscultation, Normal air movement, No rhonchi, No wheeze Cardiovascular: Normal S1, Normal S2, No murmurs, Tachycardic Abdomen: Bowel Sounds Present, Soft, Non Tender Extremities: No edema, Capillary Refill Less than 3 Seconds Skin: No rashes, No breakdown Musculoskeletal: No Tenderness to Palpation of Joints or Extremities Lymphatic: No Cervical, Supraclavicular, or Inguinal Adenopathy Neurological: Cranial nerves II-XII grossly intact, Neuro grossly intact, Motor Exam 5/5 strength throughout Psych/Mental Status: Normal Affect, Appropriate, Alert and oriented to time, place, person, mood and affect Laboratory Results 12/29/20 16:55: WBC 10.2, RBC 3.49 L, Hgb 10.6 L, Hct 31.6 L, MCV 90.5, MCH 30.4, MCHC 33.5, RDW Std Deviation 41.2, RDW Coeff of Keren 12.7, Plt Count 221, MPV 11.1, Immature Gran % (Auto) 0.400, Neut % (Auto) 61.6, Lymph % (Auto) 34.3, [place] % (Auto) 3.2, Eos % (Auto) 0.2, Baso % (Auto) 0.3, Absolute Neuts (auto) 6.3, Absolute Lymphs (auto) 3.51, Nucleated RBC % 0 12/29/20 16:55: Sodium 141, Potassium 4.1, Chloride 107, Carbon Dioxide 25.0, Anion Gap 9, BUN 60 H, Creatinine 1.10 H, Estim Creat Clear Calc 29.57, Est GFR (MDRD) Af Amer 61, Est GFR (MDRD) Non-Af 50 L, BUN/Creatinine Ratio 54.5 H, Glucose 195 H, Calcium 9.7, Total Bilirubin 0.70, AST 10 L, ALT 18, Alkaline Phosphatase 71, Troponin I 0.020, Total Protein 6.7, Albumin 3.3, Globulin 3.4, Albumin/Globulin Ratio 1.0 12/29/20 16:55: Lactic Acid 2.4 H* 12/29/20 16:55: Blood Type Pending, Antibody Screen Pending Current Medications Pantoprazole Sodium 80 mg/ (Sodium Chloride) 100 mls @ 10 mls/hr CONT INF Q10H TOM Stop: 12/30/20 02:59 Last Admin: 12/29/20 17:40 Dose: 10 mls/hr Documented by: Assessment/Plan All Active Problems (Last Reviewed 11/11/20 @ 13:37 by Wilmer Portillo PUBLIC ADDRESS TECHNICIAN, PUBLIC ADDRESS TECHNICIAN-C) Hemorrhagic shock (Acute) Upper GI bleed (Acute) Anemia due to blood loss, acute (Acute) Lactic acidosis (Acute) Sinus tachycardia (Acute) [facility] (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 of anticoagulants (Acute) 85 y/o admitted with a complaint of melena stools and coffee ground emesis. #Acute blood loss anemia due to UGI bleed -admit to ICU o.a of tachycardia and elevated lactic acid -type and cross. -consult general surgery -continue IV pantoprazole drip -hold eliquis. #UGI bleed due probably due to peptic ulcer disease -though she denies abdominal pain, she does have a history of use of NSAIDs for chronic pain -hold eliquis -general surgery consulted -management as above -hydrate with IVF #Lactic acidosis: hydrate with IVF and trend #Type 2 diabetes mellitus -hold oral diabetes meds- glimepiride -ISS> Accucheckss ACHS #Hyperlipidemia: on statin #History of thrombus on right ventricle pacemaker lead: Hold Eliquis due to GI bleed. #Hypertension: Continue current meds-ramipril. #CAD: On carvedilol and statin. #History of heart failure with reduced ejection fraction: On furosemide 40 mg daily. Will hold for now on account of GI bleed. DVT prophylaxis: SCDs. No anticoagulation on account of GI bleed GI prophylaxis: On pantoprazole drip as above. Code status: full code Patient counseled extensively about different types of CODE STATUS including full code, DNR CCA and DNR CCA. Patient elects to be full code. Total [id number] time 16 minutes. Inpatient E&M: 91941 Init Hosp L3 Procedures: 24364 Advncd Care Plan 30 Min
--- NOTE | 2020-12-29 18:39 | ED.RN ---
Pt daughter called. Updated on patient condition. Daughter aware pt to be admitted to the ICU. Aware no visitors aloud on that unit. Pt other daughter may attempt to see pt while still in the ED. Daughter also aware that plan is for Dr. Robledo to scope pt tomorrow.
[2020-12-29] MEDS: 0.9% Normal Saline 1,000 ML 125 ML IV (20:40)
[2020-12-29 21:08] LABS: Reflex Lactate? Y
--- NOTE | 2020-12-29 23:00 | PCM.CONS.GEN ---
Problem List (1) Upper GI bleed Status: Acute Reason for Consult Date of Consultation: 12/29/20 Reason for Consultation: GI bleed History of Present Illness: The patient is a 85 year old F presented to the emergency room with coffee-ground emesis and black stools. The patient has not had any vomiting since admission. Patient does not note any abdominal pain. She is on Eliquis due to AICD. The patient says that she has not had a bowel movement since being admitted. She has never had GI bleed in the past. 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, implant or graft (Chronic) RV pacemaker lead Atherosclerotic heart disease of [place] coronary artery without angina pectoris (Chronic) Left bundle-branch block (Chronic) Ventricular tachycardia (Chronic) Dyslipidemia (Chronic) Medical History: Medical History (Last Reviewed 11/11/20 @ 13:37 by Wilmer Portillo GUARD RAIL INSTALLER, GUARD RAIL INSTALLER-C) Nonischemic cardiomyopathy (Chronic) I42.8 Chronic systolic (congestive) heart failure (Chronic) I50.22 Essential (primary) hypertension (Chronic) I10 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, implant or graft (Chronic) T85.868A RV pacemaker lead Atherosclerotic heart disease of [place] coronary artery without angina pectoris (Chronic) I25.10 Left bundle-branch block (Chronic) I44.7 Ventricular tachycardia (Chronic) I47.2 Dyslipidemia (Chronic) E78.5 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, N81.6 DM2 (diabetes mellitus, type 2) E11.9 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 Allergies No Known Allergies Allergy (Verified 12/29/20 16:16) Home Medications: Ambulatory Orders Medication Instructions Recorded glimepiride 1 mg tablet 1 mg PO DAILY 14 Days #14 01/10/18 Apixaban [Eliquis] 5 mg PO BID 12/29/20 Carvedilol 25 mg PO BID 12/29/20 Furosemide 40 mg PO DAILY 12/29/20 Multivit-Min/Iron/Folic/Lutein 1 each PO DAILY 12/29/20 [Centrum Silver Women Tablet] Ramipril 2.5 mg PO DAILY 12/29/20 Surgical History: Surgical History (Last Reviewed 11/11/20 @ 13:37 by Wilmer Portillo GUARD RAIL INSTALLER, GUARD RAIL INSTALLER-C) History of implantable cardiac defibrillator (ICD) (Chronic) Onset Date: 01/31/13 Cataract H26.9 H/O tubal ligation Z98.51 H/O: hysterectomy Z90.710 History of hip replacement Z96.649 History of left heart catheterization Onset Date: 12/17/12 Z98.890 S/P vaginal hysterectomy Surgical History: - - Pacemaker Lives: Alone Smoking Status: Never smoker Tobacco Use: Non-smoker Alcohol: None Drugs: None - *Family History Maternal Family History: Family History (Last Reviewed 11/11/20 @ 13:37 by Wilmer Portillo GUARD RAIL INSTALLER, GUARD RAIL INSTALLER-C) Mother CAD (coronary artery disease) CHF (congestive heart failure) Father Diabetes Review of Systems Constitutional: Denies: Anorexia, Fever HEENT: Denies: Difficulty Swallowing Cardiovascular: Denies: Chest Pain Respiratory: Denies: Cough, Shortness of Breath Gastrointestinal: Reports: Hematemesis, Melena, Vomiting. Denies: Abdominal Pain, Nausea Genitourinary: Denies: Dysuria Musculoskeletal: Denies: Joint Tenderness Skin: Denies: Jaundice Neurological: Denies: Balance problems Psychiatric: Denies: Anxiety Hematologic/ Lymphatic: Denies: Anemia Patient Problems: Active and Suspected Problems (Last Reviewed 11/11/20 @ 13:37 by Wilmer Portillo GUARD RAIL INSTALLER, GUARD RAIL INSTALLER-C) Hemorrhagic shock (Acute) Upper GI bleed (Acute) Anemia due to blood loss, acute (Acute) Lactic acidosis (Acute) Sinus tachycardia (Acute) senior living (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 of anticoagulants (Acute) - Physical Exam Vitals/I&O's: Vital Signs Temp Pulse Resp BP Pulse Ox 98 F 110 H 18 118/73 97 12/29/20 18:20 12/29/20 18:20 12/29/20 18:20 12/29/20 18:20 12/29/20 18:20 Oxygen Delivery Method Room Air Weight: 154 lb 12.232 oz Body Mass Index (BMI) 30.2 Intake and Output for Last 24 Hours 12/27/20 12/28/20 12/29/20 23:59 23:59 23:59 Intake Total 1035 / 1035 Balance 1035 / 1035 General: Alert, Oriented x3 Neck: No JVD Lungs: Normal air movement Cardiovascular: Regular Rhythm, Tachycardic Abdomen: Soft, Non Tender, Non-Distended Extremities: No clubbing Skin: No rashes Musculoskeletal: No Muscle Wasting Neurological: Cranial nerves II-XII grossly intact Psych/Mental Status: Normal Affect Laboratory Results 12/29/20 16:55: WBC 10.2, RBC 3.49 L, Hgb 10.6 L, Hct 31.6 L, MCV 90.5, MCH 30.4, MCHC 33.5, RDW Std Deviation 41.2, RDW Coeff of Keren 12.7, Plt Count 221, MPV 11.1, Immature Gran % (Auto) 0.400, Neut % (Auto) 61.6, Lymph % (Auto) 34.3, [place] % (Auto) 3.2, Eos % (Auto) 0.2, Baso % (Auto) 0.3, Absolute Neuts (auto) 6.3, Absolute Lymphs (auto) 3.51, Nucleated RBC % 0 12/29/20 16:55: Sodium 141, Potassium 4.1, Chloride 107, Carbon Dioxide 25.0, Anion Gap 9, BUN 60 H, Creatinine 1.10 H, Estim Creat Clear Calc 29.57, Est GFR (MDRD) Af Amer 61, Est GFR (MDRD) Non-Af 50 L, BUN/Creatinine Ratio 54.5 H, Glucose 195 H, Calcium 9.7, Total Bilirubin 0.70, AST 10 L, ALT 18, Alkaline Phosphatase 71, Troponin I 0.020, Total Protein 6.7, Albumin 3.3, Globulin 3.4, Albumin/Globulin Ratio 1.0 12/29/20 16:55: Lactic Acid 2.4 H* 12/29/20 16:55: Blood Type A POSITIVE, Antibody Screen NEGATIVE 12/29/20 22:50: Hgb Pending, Hct Pending Current Medications Sodium Chloride () 1,000 mls @ 125 mls/hr IV .Q8H TOM Stop: 12/30/20 11:32 Last Admin: 12/29/20 20:40 Dose: 125 mls/hr Documented by: Pantoprazole Sodium 80 mg/ (Sodium Chloride) 100 mls @ 10 mls/hr CONT INF Q10H TOM Last Admin: 12/29/20 22:38 Dose: 10 mls/hr Documented by: Insulin Human Lispro (Insulin Lispro 100 Unit/Ml Insuln.Pen) 0 unit SC Q6 TOM; Protocol Ondansetron HCl (Ondansetron 4 Mg/2 Ml Vial) 4 mg IV Q8H PRN PRN PRN Reason: NAUSEA/VOMITING Sodium Chloride (0.9% Saline Lock 10 Ml Syringe) 10 - 40 ml IV UD PRN PRN Reason: SALINE FLUSH Assessment/Plan All Active Problems (Last Reviewed 11/11/20 @ 13:37 by Wilmer Portillo GUARD RAIL INSTALLER, GUARD RAIL INSTALLER-C) Hemorrhagic shock (Acute) Upper GI bleed (Acute) Anemia due to blood loss, acute (Acute) Lactic acidosis (Acute) Sinus tachycardia (Acute) bed bug exterminator (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 of anticoagulants (Acute) 85-year-old female with upper GI bleed 1. The patient reports coffee-ground emesis as well as melena. The patient has not had any bowel movements or coffee-ground emesis since admission. Her hemoglobin was 10 on admission. The patient is on Eliquis due to AICD placed years ago. 2. I discussed EGD with the patient tomorrow morning. I explained endoscopy in detail to the patient. I explained the risks including but not limited to stroke or heart attack with anesthesia, perforation of the GI tract, bleeding, infection. I explained that any of these could necessitate further emergency surgery. The patient understands and all questions were answered sufficiently. The patient wishes to proceed with procedure. Xiang Robledo MD Pager: [facility] [address] [place] [address], [address] [place] [address] Office:
[2020-12-29 23:05] LABS: Hematocrit 26.8 % (37-47); Hemoglobin 8.9 g/dL (12.0-15.0)
[2020-12-29 23:36] LABS: Bedside Glucose 118 mg/dL (70-110)
[2020-12-30] VITALS (23 sets, daily range): BP systolic 80–133; BP diastolic 41–82; PULSE 82–102; RESP 16–24; TEMP 36.2–37.1; O2SAT 93–99; BMI 30.3
--- NOTE | 2020-12-30 | GASB_PTH ---
PATIENT: NICOLAS JACOBSON LOC: [facility] U#:[id number] AGE/SX: 85/F [facility]OM[facility] RE12/29/[address]: Dr. Jona Goins MD : 1935 BED: 1 DIS: 01/01/2021 SPEC #: [id number] RECD: 12/30/20 15:54 STATUS: LCAIE CLEMENT #: [id number] JOSUÉ: 12/30/20 00:[address]: Xiang Robledo DEPT: SURGICAL PATHOLOGY RECD BY: Ruddy Hutson ENTERED: 12/31/20 07:46 SP TYPE: Gastric Bx OTHR DR: MD Dr. Edilberto Argueta DO Dr. Lisa Malys, DO Dr. Nana Yaa Koram, MD Dr. Prakash Chand, MD Tissues: Gastric mucous membrane Procedures: Surgery Specimen Level IV Comments: @ Ordering doctor for SUIV edited from to @ by NU at 12/31/20 1538 @ Submitting doctor edited from to @ by RGOOD at 12/31/20 1538 HEADER OPERATION: [place] ([facility] [place] PRE-OP DIAGNOSIS: Upper GI bleed TISSUE SUBMITTED: Antrum for H. pylori and path MICROSCOPIC DIAGNOSIS Antrum, biopsy: Mild gastritis. See microscopic description and comment. NAIDA:nick 01/01/2021 COMMENT The results of immunohistochemistry for Helicobacter pylori will be reported separately ([id number]). MICROSCOPIC DESCRIPTION Slides are reviewed. The specimen shows fragments of gastric mucosa with chronic inflammatory cell infiltrates in the lamina propria consisting of lymphocytes and plasma cells, consistent with mild chronic gastritis. GROSS DESCRIPTION Received in fixative is one container labeled with the patient's name and designated antrum biopsy. The specimen consists of two irregular fragments of light little soft tissue that in aggregate measure 0.5 x 0.4 x 0.1 cm. The specimen is totally submitted in one cassette. / NAIDA:nick 12/31/20 TC:3 CPT: 02966
--- NOTE | 2020-12-30 | IMM_PTH ---
PATIENT: NICOLAS JACOBSON LOC: [facility] U#:[id number] AGE/SX: 85/F ROOM: [facility] RE12/29/[address]: Dr. Jona Goins MD : 1935 BED: 1 DIS: 01/01/2021 SPEC #: [id number] RECD: 12/31/20 14:16 STATUS: LACIE RELiliana #: [id number] JOSUÉ: 12/30/20 00:[address]: Xiang Robledo DEPT: IMMUNOHISTOCHEMISTRY RECD BY: Gina Capellan ENTERED: 12/31/20 14:16 SP TYPE: IMMUNO OTHR DR: DO Dr. Maria Teresa Betancourt DO Dr. Nana Yaa Koram, MD Dr. Prakash Chand, MD Tissues: Stomach, NOS Procedures: H Pylori (initial) PHYSICIAN & INSTITUTION [place] [id number] SPECIMEN INFORMATION: Tissue Source: Antrum biopsy Clinical Info: Upper GI bleed Specimen Number: [id number] CPT code: 85506 METHODOLOGY: Deparaffinized sections of prefer/formalin-fixed tissue or PAP/DQ stained slides are incubated with monoclonal/polyclonal antibodies/oligonucleotide probes. Localization is made via biotin free immunoperoxidase method. Appropriate controls are performed and reacted as expected. Results on target cell population are indicated in the following table: RESULTS: ANTIBODY / CLONE RESULT H Pylori (polyclonal) negative These tests were developed and their performance characteristics determined by [facility]. They may not have been cleared or approved by the U.S. Food and Drug Administration. The FDA has determined that such clearance or approval is not necessary. INTERPRETATION: Antrum biopsy: Negative for Helicobacter pylori organisms. SJ:nick 01/01/2021
[2020-12-30 00:01] LABS: Lactic Acid 1.3 mmol/L (0.4-1.9)
[2020-12-30] MEDS: 0.9% Normal Saline 1,000 ML 125 ML IV (05:06)
[2020-12-30] MEDS: Insulin Lispro 100 UNIT/ML INSULN.PEN SC ×2 (05:11→17:33)
[2020-12-30 05:17] LABS: Absolute Lymphocyte Count 2.53 X10^3/uL (0.83-4.51); Absolute Neutrophil Count 3.9 X10^3/uL (2.0-7.7); Basophil# 0.03 X10^3/uL; Basophil% 0.4 % (0-1); Eosinophil# 0.12 X10^3/uL; Eosinophils% 1.7 % (0-5); Hematocrit 27.2 % (37-47); Hemoglobin 8.7 g/dL (12.0-15.0); Lymphocyte # 2.53 X10^3/ul (0.83-4.51); Lymphocyte % 36.8 % (19-41); Mean Corpuscular Hgb 29.6 pg (27.0-32.0); Mean Corpuscular Volume 92.5 fL (81-99); Mean Platelet Vol. 10.5 fl (6.2-12.0); Monocyte% 4.4 % (0-10); NRBC Flagged by Analyzer 0 % (0-5); Neutrophil # 3.89 X10^3/uL (2.7-7.7); Neutrophil % 56.6 % (47-70); Platelet Count 156 K/mm3 (150-450); RBC Distribution Width SD 43.5 fl (35.1-43.9); Red Blood Count 2.94 M/mm3 (4.2-5.4); White Blood Count 6.9 K/mm3 (4.4-11.0)
[2020-12-30 05:26] LABS: Bedside Glucose 159 mg/dL (70-110)
[2020-12-30 05:38] LABS: Anion Gap 7 (5-15); BUN 39 mg/dL (7-18); BUN/Creat Ratio 45.5 RATIO (10-20); Calcium,Total 8.9 mg/dL (8.5-10.1); Chloride 115 mmol/L (98-107); Creatinine, Serum 0.86 mg/dL (0.55-1.02); EST Glomerular Filtration Rate 67 mL/min (>60); Est Glom Filt Rate - Afr Amer 81 mL/min (>60); Estimated Creatinine Clearance 34.35 ml/min; Glucose 172 mg/dL (74-106); Potassium 4.2 mmol/L (3.5-5.1); Sodium Level 144 mmol/L (136-145)
--- NOTE | 2020-12-30 07:27 | PCM.PN.HOSP ---
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 Drop blood pressure in the afternoon probably during procedure for EGD. Had EGD in afternoon. Patient admitted with melena black stool and coffee-ground emesis about 2 days prior to admission. She has been having dark stool ongoing intermittently for last 1 to 2 weeks. 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 Physical exam General: Alert, Oriented x3, Cooperative HEENT: Atraumatic, PERRLA, EOMI, Normocephalic Oral: No Gingival or Mucosal Lesions/ Ulcerations Neck: Supple, No JVD, Negative Carotid Bruits Lungs: Air entry diminished in bilateral lung bases. No crepitation/rhonchi Cardiovascular: Regular rate, Regular Rhythm, Normal S1, Normal S2, No murmurs Abdomen: Bowel Sounds Present, Soft, Non Tender, Non-Distended : No renal angle tenderness. No suprapubic tenderness. Extremities: Mild bilateral ankle edema, Capillary Refill Less than 3 Seconds Skin: No rashes, No breakdown Musculoskeletal: No Tenderness to Palpation of Joints or Extremities Neurological: Cranial nerves II-XII grossly intact, Deep Tendon Reflexes 2+/4 and Symmetrical, Neuro grossly intact Psych/Mental Status: Normal Affect, Appropriate. Vitals/I&O's: Vital Signs Temp Pulse Resp BP Pulse Ox 98.7 F 84 22 H 92/74 95 12/30/20 04:00 12/30/20 06:00 12/30/20 06:00 12/30/20 06:00 12/30/20 06:00 Oxygen Delivery Method Room Air Weight: 155 lb 3.287 oz Body Mass Index (BMI) 30.3 Intake and Output for Last 24 Hours 12/28/20 12/29/20 12/30/20 23:59 23:59 23:59 Intake Total 1084.67 / 1084.67 1222.16 / 1222.16 Output Total 150 / 150 450 / 450 Balance 934.67 / 934.67 772.16 / 772.16 Microbiology Past 72 Hours 12/30/20 Unknown Nasal Secretion SARS-CoV-2 Antigen (Rapid) - Final Laboratory Results 12/29/20 16:55: WBC 10.2, RBC 3.49 L, Hgb 10.6 L, Hct 31.6 L, MCV 90.5, MCH 30.4, MCHC 33.5, RDW Std Deviation 41.2, RDW Coeff of Keren 12.7, Plt Count 221, MPV 11.1, Immature Gran % (Auto) 0.400, Neut % (Auto) 61.6, Lymph % (Auto) 34.3, Chilton % (Auto) 3.2, Eos % (Auto) 0.2, Baso % (Auto) 0.3, Absolute Neuts (auto) 6.3, Absolute Lymphs (auto) 3.51, Nucleated RBC % 0 12/29/20 16:55: Sodium 141, Potassium 4.1, Chloride 107, Carbon Dioxide 25.0, Anion Gap 9, BUN 60 H, Creatinine 1.10 H, Estim Creat Clear Calc 29.57, Est GFR (MDRD) Af Amer 61, Est GFR (MDRD) Non-Af 50 L, BUN/Creatinine Ratio 54.5 H, Glucose 195 H, Calcium 9.7, Total Bilirubin 0.70, AST 10 L, ALT 18, Alkaline Phosphatase 71, Troponin I 0.020, Total Protein 6.7, Albumin 3.3, Globulin 3.4, Albumin/Globulin Ratio 1.0 12/29/20 16:55: Lactic Acid 2.4 H* 12/29/20 16:55: Blood Type A POSITIVE, Antibody Screen NEGATIVE 12/29/20 22:50: Hgb 8.9 L, Hct 26.8 L 12/29/20 23:30: Lactic Acid 1.3 12/29/20 23:32: POC Glucose 118 H 12/30/20 05:08: POC Glucose 159 H 12/30/20 05:10: WBC 6.9, RBC 2.94 L, Hgb 8.7 L, Hct 27.2 L, MCV 92.5, MCH 29.6, MCHC 32.0, RDW Std Deviation 43.5, RDW Coeff of Keren 13.0, Plt Count 156, MPV 10.5, Immature Gran % (Auto) 0.100, Neut % (Auto) 56.6, Lymph % (Auto) 36.8, Chilton % (Auto) 4.4, Eos % (Auto) 1.7, Baso % (Auto) 0.4, Absolute Neuts (auto) 3.9, Absolute Lymphs (auto) 2.53, Nucleated RBC % 0 12/30/20 05:10: Sodium 144, Potassium 4.2, Chloride 115 H, Carbon Dioxide 22.0, Anion Gap 7, BUN 39 H, Creatinine 0.86, Estim Creat Clear Calc 34.35, Est GFR (MDRD) Af Amer 81, Est GFR (MDRD) Non-Af 67, BUN/Creatinine Ratio 45.5 H, Glucose 172 H, Calcium 8.9 Current Medications Pantoprazole Sodium 40 mg/ (Sodium Chloride) 110 mls @ 330 mls/hr IV Q12 TOM Insulin Human Lispro (Insulin Lispro 100 Unit/Ml Insuln.Pen) 0 unit SC Q6 TOM; Protocol Last Admin: 12/30/20 05:11 Dose: 1 u Documented by: Ondansetron HCl (Ondansetron 4 Mg/2 Ml Vial) 4 mg IV Q8H PRN PRN PRN Reason: NAUSEA/VOMITING Sodium Chloride (0.9% Saline Lock 10 Ml Syringe) 10 - 40 ml IV UD PRN PRN Reason: SALINE FLUSH STROKE Vital Signs/Narrative: Vital Signs Temp Pulse Resp BP Pulse Ox 12/30/20 06:00 84 22 H 92/74 95 12/30/20 05:00 90 18 130/66 H 97 12/30/20 04:00 98.7 F 94 20 H 133/66 H 97 Medical Necessity - Tobacco Use Smoking Status: Never smoker Tobacco Use: Non-smoker Assessment/Plan All Active Problems (Last Reviewed 11/11/20 @ 13:37 by Wilmer Portillo JEWEL BEARING POLISHER, JEWEL BEARING POLISHER-C) Hemorrhagic shock (Acute) Upper GI bleed (Acute) Anemia due to blood loss, acute (Acute) Lactic acidosis (Acute) Sinus tachycardia (Acute) 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 #Acute blood loss anemia due to nonbleeding gastric ulcer/upper GI bleed: Patient had EGD in the afternoon and found to have nonbleeding gastric ulcer with no stigmata of bleeding. Normal esophagus. Normal duodenum. Started on clear liquid diet. Discussed with the surgeon. IV Protonix changed to p.o. Protonix. Carafate added. Continue holding Eliquis for another 24 hours. She also uses NSAID/Aleve once or twice a week. Heart rate in the 90s to low 100s. #Lactic acidosis: Patient was well hydrated with IV fluid. Repeat lactic acid normal. Posteriorly from 9.32. #Type 2 diabetes mellitus: Accu-Cheks before meals and at bedtime. On sliding scale insulin. Hold oral glimepiride. 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 Patient is a high risk of thrombosis therefore will start Eliquis tomorrow. #Hypertension: Continue current meds-ramipril. #CAD: On carvedilol and statin. #History of heart failure with reduced ejection fraction: On furosemide 40 mg daily. 3 fluid is discontinued. DVT prophylaxis: SCDs. No anticoagulation on account of GI bleed Home medication reconciliation done. Code status: full code Total time of the visit including total time spent in counseling or coordination of care, (more than 50% of the total time, spent in obtaining medical information from nurses and other ancillary care providers,explaining to the patient about labs, imaging, diagnosis and management), discussion with cardiology clinical consultant, review of labs and imaging is 30 minutes. Microbiology Past 72 Hours 12/30/20 Unknown Nasal Secretion SARS-CoV-2 Antigen (Rapid) - Final Laboratory Results 12/29/20 16:55: WBC 10.2, RBC 3.49 L, Hgb 10.6 L, Hct 31.6 L, MCV 90.5, MCH 30.4, MCHC 33.5, RDW Std Deviation 41.2, RDW Coeff of Keren 12.7, Plt Count 221, MPV 11.1, Immature Gran % (Auto) 0.400, Neut % (Auto) 61.6, Lymph % (Auto) 34.3, Chilton % (Auto) 3.2, Eos % (Auto) 0.2, Baso % (Auto) 0.3, Absolute Neuts (auto) 6.3, Absolute Lymphs (auto) 3.51, Nucleated RBC % 0 12/29/20 16:55: Sodium 141, Potassium 4.1, Chloride 107, Carbon Dioxide 25.0, Anion Gap 9, BUN 60 H, Creatinine 1.10 H, Estim Creat Clear Calc 29.57, Est GFR (MDRD) Af Amer 61, Est GFR (MDRD) Non-Af 50 L, BUN/Creatinine Ratio 54.5 H, Glucose 195 H, Calcium 9.7, Total Bilirubin 0.70, AST 10 L, ALT 18, Alkaline Phosphatase 71, Troponin I 0.020, Total Protein 6.7, Albumin 3.3, Globulin 3.4, Albumin/Globulin Ratio 1.0 12/29/20 16:55: Lactic Acid 2.4 H* 12/29/20 16:55: Blood Type A POSITIVE, Antibody Screen NEGATIVE 12/29/20 22:50: Hgb 8.9 L, Hct 26.8 L 12/29/20 23:30: Lactic Acid 1.3 12/29/20 23:32: POC Glucose 118 H 12/30/20 05:08: POC Glucose 159 H 12/30/20 05:10: WBC 6.9, RBC 2.94 L, Hgb 8.7 L, Hct 27.2 L, MCV 92.5, MCH 29.6, MCHC 32.0, RDW Std Deviation 43.5, RDW Coeff of Keren 13.0, Plt Count 156, MPV 10.5, Immature Gran % (Auto) 0.100, Neut % (Auto) 56.6, Lymph % (Auto) 36.8, Chilton % (Auto) 4.4, Eos % (Auto) 1.7, Baso % (Auto) 0.4, Absolute Neuts (auto) 3.9, Absolute Lymphs (auto) 2.53, Nucleated RBC % 0 12/30/20 05:10: Sodium 144, Potassium 4.2, Chloride 115 H, Carbon Dioxide 22.0, Anion Gap 7, BUN 39 H, Creatinine 0.86, Estim Creat Clear Calc 34.35, Est GFR (MDRD) Af Amer 81, Est GFR (MDRD) Non-Af 67, BUN/Creatinine Ratio 45.5 H, Glucose 172 H, Calcium 8.9 Inpatient E&M: 01670 Subs Hosp L3
--- NOTE | 2020-12-30 07:53 | CON.PCM_ITS ---
Reason for Consult Date of Consultation: 12/30/20 Reason for Consultation: Blood loss anemia History of Present Illness: The patient is an 85-year-old female, with a history as outlined below, who presented to the emergency department on December 29 with complaints of melanotic stools, dizziness and lightheadedness. The patient has a known history of nonischemic cardiomyopathy with ICD placement. In 2017, the patient was noted to have an ICD lead thrombus on echocardiogram. She was subsequently placed on Eliquis. Echocardiogram from 2019 revealed an ejection fraction of 30% with moderate to severe global hypokinesis of the LV. On presentation to the emergency department, the patient was noted to be afebrile and hemodynamically stable. Laboratory evaluation revealed a hemoglobin of 10.6 g/dL. Chemistry profile was notable for a creatinine of 1.10. Lactate was elevated to 2.4. Rapid coronavirus antigen testing was negative. The patient initially received supplemental IV fluid hydration was started on PPI therapy. General surgery was consulted to evaluate the patient. She was subsequently admitted to the medical intensive care unit for close observation. 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 Atherosclerotic heart disease of [place] coronary artery without angina pectoris (Chronic) Left bundle-branch block (Chronic) Ventricular tachycardia (Chronic) Dyslipidemia (Chronic) Medical History: Medical History (Last Reviewed 11/11/20 @ 13:37 by Wilmer Portillo PIPING SUPERVISOR, PIPING SUPERVISOR-C) Nonischemic cardiomyopathy (Chronic) I42.8 Chronic systolic (congestive) heart failure (Chronic) I50.22 Essential (primary) hypertension (Chronic) I10 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, implant or graft (Chronic) T85.868A RV pacemaker lead Atherosclerotic heart disease of [place] coronary artery without angina pectoris (Chronic) I25.10 Left bundle-branch block (Chronic) I44.7 Ventricular tachycardia (Chronic) I47.2 Dyslipidemia (Chronic) E78.5 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, N81.6 DM2 (diabetes mellitus, type 2) E11.9 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 Allergies No Known Allergies Allergy (Verified 12/29/20 16:16) Home Medications: Ambulatory Orders Medication Instructions Recorded glimepiride 1 mg tablet 1 mg PO DAILY 14 Days #14 01/10/18 Apixaban [Eliquis] 5 mg PO BID 12/29/20 Carvedilol 25 mg PO BID 12/29/20 Furosemide 40 mg PO DAILY 12/29/20 Multivit-Min/Iron/Folic/Lutein 1 each PO DAILY 12/29/20 [Centrum Silver Women Tablet] Ramipril 2.5 mg PO DAILY 12/29/20 Surgical History: Surgical History (Last Reviewed 11/11/20 @ 13:37 by Wilmer Portillo PIPING SUPERVISOR, PIPING SUPERVISOR-C) History of implantable cardiac defibrillator (ICD) (Chronic) Onset Date: 01/31/13 Cataract H26.9 H/O tubal ligation Z98.51 H/O: hysterectomy Z90.710 History of hip replacement Z96.649 History of left heart catheterization Onset Date: 12/17/12 Z98.890 S/P vaginal hysterectomy Surgical History: - - Pacemaker Lives: Alone Smoking Status: Never smoker Tobacco Use: Non-smoker Alcohol: None Drugs: None - *Family History Maternal Family History: Family History (Last Reviewed 11/11/20 @ 13:37 by Wilmer Portillo PIPING SUPERVISOR, PIPING SUPERVISOR-C) Mother CAD (coronary artery disease) CHF (congestive heart failure) Father Diabetes Review of Systems Constitutional: Reports: Fatigue. Denies: Chills, Fever Eyes: Denies: Blurred vision, Double vision HEENT: Denies: Head Aches, Sinus Congestion, Sinus Drainage Cardiovascular: Reports: Light Headedness Respiratory: Denies: Cough, Shortness of breath at rest, Sputum production Gastrointestinal: Reports: Melena Genitourinary: Denies: Dysuria Musculoskeletal: Denies: Joint Pain, Joint Tenderness Skin: Denies: Rash, Wounds Neurological: Denies: Numbness, Tingling, Focal weakness Psychiatric: Denies: Anxiety, Depression, Homicidal Ideations, Suicidal Ideations Hematologic/ Lymphatic: Reports: Anemia Patient Problems: Active and Suspected Problems (Last Reviewed 11/11/20 @ 13:37 by Wilmer Portillo PIPING SUPERVISOR, PIPING SUPERVISOR-C) Hemorrhagic shock (Acute) Upper GI bleed (Acute) Anemia due to blood loss, acute (Acute) Lactic acidosis (Acute) Sinus tachycardia (Acute) 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 - Physical Exam Vitals/I&O's: Vital Signs Temp Pulse Resp BP Pulse Ox 98.7 F 84 22 H 92/74 95 12/30/20 04:00 12/30/20 06:00 12/30/20 06:00 12/30/20 06:00 12/30/20 06:00 Oxygen Delivery Method Room Air Weight: 155 lb 3.287 oz Body Mass Index (BMI) 30.3 Intake and Output for Last 24 Hours 12/28/20 12/29/20 12/30/20 23:59 23:59 23:59 Intake Total 1084.67 / 1084.67 1222.16 / 1222.16 Output Total 150 / 150 450 / 450 Balance 934.67 / 934.67 772.16 / 772.16 General: Alert, Cooperative, No apparent distress HEENT: Atraumatic, Normocephalic Oral: Dry Mucosa Neck: Supple, No Nodes, Trachea Midline Lungs: Normal air movement, No rhonchi, No wheeze, No rales Cardiovascular: Regular rate, Regular Rhythm Abdomen: Bowel Sounds Present, Soft, Non-Distended Extremities: No clubbing, No cyanosis, No edema Skin: No breakdown Musculoskeletal: No Tenderness to Palpation of Joints or Extremities Lymphatic: No Cervical, Supraclavicular, or Inguinal Adenopathy Neurological: Cranial nerves II-XII grossly intact, Neuro grossly intact Psych/Mental Status: Normal Affect, Appropriate Labs (Last 48 Hours) 12/29/20 12/29/20 12/29/20 16:55 16:55 16:55 WBC 10.2 RBC 3.49 L Hgb 10.6 L Hct 31.6 L MCV 90.5 MCH 30.4 MCHC 33.5 RDW Std Deviation 41.2 RDW Coeff of Keren 12.7 Plt Count 221 MPV 11.1 Immature Gran % (Auto) 0.400 Neut % (Auto) 61.6 Lymph % (Auto) 34.3 Esmeralda % (Auto) 3.2 Eos % (Auto) 0.2 Baso % (Auto) 0.3 Absolute Neuts (auto) 6.3 Absolute Lymphs (auto) 3.51 Nucleated RBC % 0 Sodium 141 Potassium 4.1 Chloride 107 Carbon Dioxide 25.0 Anion Gap 9 BUN 60 H Creatinine 1.10 H Estim Creat Clear Calc 29.57 Est GFR (MDRD) Af Amer 61 Est GFR (MDRD) Non-Af 50 L BUN/Creatinine Ratio 54.5 H Glucose 195 H Lactic Acid 2.4 H* Calcium 9.7 Total Bilirubin 0.70 AST 10 L ALT 18 Alkaline Phosphatase 71 Troponin I 0.020 Total Protein 6.7 Albumin 3.3 Globulin 3.4 Albumin/Globulin Ratio 1.0 POC Glucose Blood Type Antibody Screen 12/29/20 12/29/20 12/29/20 16:55 22:50 23:30 WBC RBC Hgb 8.9 L Hct 26.8 L MCV MCH MCHC RDW Std Deviation RDW Coeff of Keren Plt Count MPV Immature Gran % (Auto) Neut % (Auto) Lymph % (Auto) Esmeralda % (Auto) Eos % (Auto) Baso % (Auto) Absolute Neuts (auto) Absolute Lymphs (auto) Nucleated RBC % Sodium Potassium Chloride Carbon Dioxide Anion Gap BUN Creatinine Estim Creat Clear Calc Est GFR (MDRD) Af Amer Est GFR (MDRD) Non-Af BUN/Creatinine Ratio Glucose Lactic Acid 1.3 Calcium Total Bilirubin AST ALT Alkaline Phosphatase Troponin I Total Protein Albumin Globulin Albumin/Globulin Ratio POC Glucose Blood Type A POSITIVE Antibody Screen NEGATIVE 12/29/20 12/30/20 12/30/20 23:32 05:08 05:10 WBC 6.9 RBC 2.94 L Hgb 8.7 L Hct 27.2 L MCV 92.5 MCH 29.6 MCHC 32.0 RDW Std Deviation 43.5 RDW Coeff of Keren 13.0 Plt Count 156 MPV 10.5 Immature Gran % (Auto) 0.100 Neut % (Auto) 56.6 Lymph % (Auto) 36.8 Esmeralda % (Auto) 4.4 Eos % (Auto) 1.7 Baso % (Auto) 0.4 Absolute Neuts (auto) 3.9 Absolute Lymphs (auto) 2.53 Nucleated RBC % 0 Sodium Potassium Chloride Carbon Dioxide Anion Gap BUN Creatinine Estim Creat Clear Calc Est GFR (MDRD) Af Amer Est GFR (MDRD) Non-Af BUN/Creatinine Ratio Glucose Lactic Acid Calcium Total Bilirubin AST ALT Alkaline Phosphatase Troponin I Total Protein Albumin Globulin Albumin/Globulin Ratio POC Glucose 118 H 159 H Blood Type Antibody Screen 12/30/20 05:10 WBC RBC Hgb Hct MCV MCH MCHC RDW Std Deviation RDW Coeff of Keren Plt Count MPV Immature Gran % (Auto) Neut % (Auto) Lymph % (Auto) Esmeralda % (Auto) Eos % (Auto) Baso % (Auto) Absolute Neuts (auto) Absolute Lymphs (auto) Nucleated RBC % Sodium 144 Potassium 4.2 Chloride 115 H Carbon Dioxide 22.0 Anion Gap 7 BUN 39 H Creatinine 0.86 Estim Creat Clear Calc 34.35 Est GFR (MDRD) Af Amer 81 Est GFR (MDRD) Non-Af 67 BUN/Creatinine Ratio 45.5 H Glucose 172 H Lactic Acid Calcium 8.9 Total Bilirubin AST ALT Alkaline Phosphatase Troponin I Total Protein Albumin Globulin Albumin/Globulin Ratio POC Glucose Blood Type Antibody Screen Microbiology 12/30/20 Unknown Nasal Secretion SARS-CoV-2 Antigen (Rapid) - Final Current Medications Pantoprazole Sodium 40 mg/ (Sodium Chloride) 110 mls @ 330 mls/hr IV Q12 TOM Insulin Human Lispro (Insulin Lispro 100 Unit/Ml Insuln.Pen) 0 unit SC Q6 TOM; Protocol Last Admin: 12/30/20 05:11 Dose: 1 u Documented by: Ondansetron HCl (Ondansetron 4 Mg/2 Ml Vial) 4 mg IV Q8H PRN PRN PRN Reason: NAUSEA/VOMITING Sodium Chloride (0.9% Saline Lock 10 Ml Syringe) 10 - 40 ml IV UD PRN PRN Reason: SALINE FLUSH Assessment/Plan Active and Suspected Problems (Last Reviewed 11/11/20 @ 13:37 by Wilmer Portillo PIPING SUPERVISOR, PIPING SUPERVISOR-C) Hemorrhagic shock (Acute) Upper GI bleed (Acute) Anemia due to blood loss, acute (Acute) Lactic acidosis (Acute) Sinus tachycardia (Acute) 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 Stop continuous IV fluids. 2. Transition to twice daily dosing of Protonix. 3. Continue to monitor H&H daily. Transfuse if hemoglobin drops below 7 g/dL. 4. Encourage incentive spirometer use and mobilize patient as tolerated. IMPRESSIONS: 1. Blood loss anemia with concern for gastrointestinal hemorrhage The patient has remained hemodynamically stable with a hemoglobin blanca of 8.7 g/dL. She has not required transfusion of blood products. The patient has received supplemental IV fluid hydration. She will be continued on PPI therapy with plans for upper endoscopy later today. Continue to monitor H&H daily. Continue to hold Eliquis. 2. 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 Continue home medications as indicated. This note was generated with [employer] dictation software. It may contain incorrect words, spelling, and punctuation that were not noted in checking the note before signing. Inpatient E&M: 65243 Init Hosp L3
--- NOTE | 2020-12-30 11:00 | CASEMGMT ---
RN CM Face to Face with patient for initial transition planning/care coordination assessment. RN CM introduced self and role at [facility]. Patient lying in bed, alert and oriented. Patient willing to participate in assessment and is able to answer all questions appropriately. Care providers, pharmacy, and demographics verified. Patient wishes to discharge home, denies need for home health at this time. Patient states she has no further needs or concerns at this time. CM to follow for discharge planning needs that may arise. PCP: Kasia Specialists: Isatu, professor of philosophy; ERNESTINA Garcia Preferred Pharmacy: [facility] Insurance: [email or web address] Prescription Benefit: yes Living Will/HPOA: none LNOK: daughters Living Arrangements: Patient lives alone in a first floor apartment with no steps to enter. Patient states she is independent at home. Transportation: [facility] van/daughter DME/HHC: Patient states she has shower chair, cane, and walker at home. Patient denies previous HHC. Patient is interested in information for private duty aides, CM to provided list Disposition Plan: Patient to discharge home with family support and follow-up plans in place. Jackie MARKSN, RN, CM
--- NOTE | 2020-12-30 11:55 | NURSING ---
Report called to Shanna in PACU
[2020-12-30 12:45] LABS: Bedside Glucose 164 mg/dL (70-110)
--- NOTE | 2020-12-30 13:06 | OP.EGD_ITS ---
Patient Name: Carmelita Kunz Procedure Date: 12/30/2020 12:38 PM Date of : 1935 Age: 85 Procedure: Upper GI endoscopy Indications: Acute post hemorrhagic anemia, Coffee-ground emesis, Melena Providers: Xiang Robledo MD Medicines: Monitored Anesthesia Care Patient Profile: This is an 85 year old female. Refer to note in patient chart for documentation of history and physical. Complications: No immediate complications. Estimated blood loss: Minimal. Procedure: Pre-Anesthesia Assessment: - Prior to the procedure, a History and Physical was performed, and patient medications and allergies were reviewed. The patient's tolerance of previous anesthesia was also reviewed. The risks and benefits of the procedure and the sedation options and risks were discussed with the patient. All questions were answered, and informed consent was obtained. Prior Anticoagulants: The patient has taken Eliquis (apixaban), last dose was 1 day prior to procedure. After reviewing the risks and benefits, the patient was deemed in satisfactory condition to undergo the procedure. After obtaining informed consent, the endoscope was passed under direct vision. Throughout the procedure, the patient's blood pressure, pulse, and oxygen saturations were monitored continuously. The gastroscope was introduced through the mouth, and advanced to the third part of duodenum. The upper GI endoscopy was accomplished without difficulty. The patient tolerated the procedure well. Scope In: 1:00:42 PM Scope Out: 1:03:18 PM Total Procedure Duration Time 0 hours 2 minutes 36 seconds Findings: One non-bleeding cratered gastric ulcer with no stigmata of bleeding was found in the prepyloric region of the stomach. Biopsies were taken with a cold forceps for Helicobacter pylori testing. The esophagus was normal. The examined duodenum was normal. Impression: - Non-bleeding gastric ulcer with no stigmata of bleeding. Biopsied. - Normal esophagus. - Normal examined duodenum. Recommendation: - [facility]. - Clear liquid diet. - Continue present medications. Procedure Code(s): --- Professional --- 80931, Esophagogastroduodenoscopy, flexible, transoral; with biopsy, single or multiple Diagnosis Code(s): --- Professional --- K25.9, Gastric ulcer, unspecified as acute or chronic, without hemorrhage or perforation D62, Acute posthemorrhagic anemia K92.0, Hematemesis K92.1, Melena (includes Hematochezia) CPT copyright 2017 [employer]. All rights reserved. The codes documented in this report are preliminary and upon computer language coder review may be revised to meet current compliance requirements. Xiang Robledo MD 12/30/2020 1:05:36 PM This report has been signed electronically. Number of Addenda: 0 Note Initiated On: 12/30/2020 12:38 PM
--- NOTE | 2020-12-30 13:06 | OP.CCLET_ITS ---
12/30/2020 Maria Teresa Pedroza [address] [place] [address] Re : Upper GI endoscopy procedure for Carmelita Kunz Dear Dr. Pedroza This procedure was performed on Wednesday, December 30, 2020. My impressions and recommendations are as follows: Impressions : - Non-bleeding gastric ulcer with no stigmata of bleeding. Biopsied. - Normal esophagus. - Normal examined duodenum. Recommendations : - [facility] to [facility] for [facility] care. - Clear liquid diet. - Continue present medications. My findings are described in the full procedure note, which is enclosed. If I can be of further assistance, please feel free to contact me at Doctor phone number(s): , Work: . Sincerely, Xiang Robledo MD 12/30/2020 1:05:36 PM This report has been signed electronically.
--- NOTE | 2020-12-30 13:07 | PN_ITS ---
Progress Note I performed an EGD on the patient this morning. The patient has a large ulcer in the prepyloric region. Is not actively bleeding. I will change her PPI to oral and start a diet and add Carafate. I would hold the Eliquis for another 24 hours. It can be resumed tomorrow. Xiang Robledo MD Pager: [facility] [address] [place] [address], [address] [place] [address] Office: STROKE Vital Signs/Narrative: Vital Signs Temp Pulse Resp BP BP Pulse Ox 12/30/20 12:34 98.8 F 96 16 122/72 H 97 12/30/20 11:02 98 12/30/20 11:00 89 16 129/64 H 97 12/30/20 10:00 97 23 H 121/60 H 97
--- NOTE | 2020-12-30 15:28 | NURSING ---
With patient permission, apartment keys where given to front worker for daughter to bead picker. Primary nurse notified.
[2020-12-30] MEDS: Sucralfate 1 GM Tablet PO ×2 (17:32→21:33)
[2020-12-30 20:56] LABS: Bedside Glucose 207 mg/dL (70-110)
[2020-12-30 21:05] LABS: Bedside Glucose 117 mg/dL (70-110)
[2020-12-30] MEDS: Pantoprazole Sodium 20 MG Tablet PO (21:33)
[2020-12-30] MEDS: Carvedilol 6.25 MG Tablet PO (21:35)
[2020-12-30] MEDS: Pantoprazole Sodium 40 MG Tablet PO (21:36)
[2020-12-31] VITALS (19 sets, daily range): BP systolic 102–140; BP diastolic 48–85; PULSE 81–96; RESP 16–24; TEMP 36.3–37; O2SAT 93–99
[2020-12-31 05:54] LABS: Hematocrit 23.2 % (37-47); Hemoglobin 7.4 g/dL (12.0-15.0); Mean Corp Hgb Conc 31.9 g/dL (32-36); Mean Corpuscular Hgb 30.5 pg (27.0-32.0); Mean Corpuscular Volume 95.5 fL (81-99); Mean Platelet Vol. 11.1 fl (6.2-12.0); Platelet Count 135 K/mm3 (150-450); RBC Distribution Width CV 13.1 % (11.6-14.6); RBC Distribution Width SD 45.2 fl (35.1-43.9); Red Blood Count 2.43 M/mm3 (4.2-5.4)
--- NOTE | 2020-12-31 06:28 | PCM.PN.INT ---
Subjective: The patient was seen and examined at the bedside this morning. Events from the last 24 hours have been reviewed. The patient is currently afebrile, hemodynamically stable and maintaining appropriate oxygen saturations on room air. The patient underwent upper endoscopy yesterday which revealed a nonbleeding gastric ulcer. The patient remains on twice daily Protonix and Carafate. Hemoglobin has dropped to 7.4 g/dL this morning. Objective: The patient's most recent lab work, culture data and imaging studies have all been personally reviewed. General: Alert, Cooperative, No apparent distress HEENT: Atraumatic, PERRLA, Normocephalic Oral: No Gingival or Mucosal Lesions/ Ulcerations Neck: Supple, No Nodes, Trachea Midline Lungs: Normal air movement, No rhonchi, No wheeze, No rales Cardiovascular: Regular rate, Regular Rhythm Abdomen: Bowel Sounds Present, Soft, Non Tender Extremities: No clubbing, No cyanosis, No edema Skin: No breakdown Musculoskeletal: No Tenderness to Palpation of Joints or Extremities Lymphatic: No Cervical, Supraclavicular, or Inguinal Adenopathy Neurological: Cranial nerves II-XII grossly intact, Neuro grossly intact Psych/Mental Status: Normal Affect, Appropriate Vital Signs Temp Pulse Resp BP Pulse Ox 98.1 F 88 19 H 102/49 L 93 12/31/20 04:08 12/31/20 04:08 12/31/20 04:08 12/31/20 04:08 12/31/20 04:08 Oxygen Flow Rate (L/min) 2 Oxygen Delivery Method Room Air Weight: 156 lb 15.506 oz Body Mass Index (BMI) 30.3 Intake and Output for Last 24 Hours 12/29/20 12/30/20 12/31/20 23:59 23:59 23:59 Intake Total 1084.67 / 1084.67 1882.16 / 1882.16 Output Total 150 / 150 1450 / 1450 Balance 934.67 / 934.67 432.16 / 432.16 Labs (Last 48 Hours) 12/29/20 12/29/20 12/29/20 16:55 16:55 16:55 WBC 10.2 RBC 3.49 L Hgb 10.6 L Hct 31.6 L MCV 90.5 MCH 30.4 MCHC 33.5 RDW Std Deviation 41.2 RDW Coeff of Keren 12.7 Plt Count 221 MPV 11.1 Immature Gran % (Auto) 0.400 Neut % (Auto) 61.6 Lymph % (Auto) 34.3 [place] % (Auto) 3.2 Eos % (Auto) 0.2 Baso % (Auto) 0.3 Absolute Neuts (auto) 6.3 Absolute Lymphs (auto) 3.51 Nucleated RBC % 0 Sodium 141 Potassium 4.1 Chloride 107 Carbon Dioxide 25.0 Anion Gap 9 BUN 60 H Creatinine 1.10 H Estim Creat Clear Calc 29.57 Est GFR (MDRD) Af Amer 61 Est GFR (MDRD) Non-Af 50 L BUN/Creatinine Ratio 54.5 H Glucose 195 H Lactic Acid 2.4 H* Calcium 9.7 Total Bilirubin 0.70 AST 10 L ALT 18 Alkaline Phosphatase 71 Troponin I 0.020 Total Protein 6.7 Albumin 3.3 Globulin 3.4 Albumin/Globulin Ratio 1.0 POC Glucose Blood Type Antibody Screen 12/29/20 12/29/20 12/29/20 16:55 22:50 23:30 WBC RBC Hgb 8.9 L Hct 26.8 L MCV MCH MCHC RDW Std Deviation RDW Coeff of Keren Plt Count MPV Immature Gran % (Auto) Neut % (Auto) Lymph % (Auto) [place] % (Auto) Eos % (Auto) Baso % (Auto) Absolute Neuts (auto) Absolute Lymphs (auto) Nucleated RBC % Sodium Potassium Chloride Carbon Dioxide Anion Gap BUN Creatinine Estim Creat Clear Calc Est GFR (MDRD) Af Amer Est GFR (MDRD) Non-Af BUN/Creatinine Ratio Glucose Lactic Acid 1.3 Calcium Total Bilirubin AST ALT Alkaline Phosphatase Troponin I Total Protein Albumin Globulin Albumin/Globulin Ratio POC Glucose Blood Type A POSITIVE Antibody Screen NEGATIVE 12/29/20 12/30/20 12/30/20 23:32 05:08 05:10 WBC 6.9 RBC 2.94 L Hgb 8.7 L Hct 27.2 L MCV 92.5 MCH 29.6 MCHC 32.0 RDW Std Deviation 43.5 RDW Coeff of Keren 13.0 Plt Count 156 MPV 10.5 Immature Gran % (Auto) 0.100 Neut % (Auto) 56.6 Lymph % (Auto) 36.8 [place] % (Auto) 4.4 Eos % (Auto) 1.7 Baso % (Auto) 0.4 Absolute Neuts (auto) 3.9 Absolute Lymphs (auto) 2.53 Nucleated RBC % 0 Sodium Potassium Chloride Carbon Dioxide Anion Gap BUN Creatinine Estim Creat Clear Calc Est GFR (MDRD) Af Amer Est GFR (MDRD) Non-Af BUN/Creatinine Ratio Glucose Lactic Acid Calcium Total Bilirubin AST ALT Alkaline Phosphatase Troponin I Total Protein Albumin Globulin Albumin/Globulin Ratio POC Glucose 118 H 159 H Blood Type Antibody Screen 12/30/20 12/30/20 12/30/20 05:10 12:39 17:30 WBC RBC Hgb Hct MCV MCH MCHC RDW Std Deviation RDW Coeff of Keren Plt Count MPV Immature Gran % (Auto) Neut % (Auto) Lymph % (Auto) [place] % (Auto) Eos % (Auto) Baso % (Auto) Absolute Neuts (auto) Absolute Lymphs (auto) Nucleated RBC % Sodium 144 Potassium 4.2 Chloride 115 H Carbon Dioxide 22.0 Anion Gap 7 BUN 39 H Creatinine 0.86 Estim Creat Clear Calc 34.35 Est GFR (MDRD) Af Amer 81 Est GFR (MDRD) Non-Af 67 BUN/Creatinine Ratio 45.5 H Glucose 172 H Lactic Acid Calcium 8.9 Total Bilirubin AST ALT Alkaline Phosphatase Troponin I Total Protein Albumin Globulin Albumin/Globulin Ratio POC Glucose 164 H 207 H Blood Type Antibody Screen 12/30/20 12/31/20 20:57 03:50 WBC 6.0 RBC 2.43 L Hgb 7.4 L Hct 23.2 L MCV 95.5 MCH 30.5 MCHC 31.9 L RDW Std Deviation 45.2 H RDW Coeff of Keren 13.1 Plt Count 135 L MPV 11.1 Immature Gran % (Auto) Neut % (Auto) Lymph % (Auto) [place] % (Auto) Eos % (Auto) Baso % (Auto) Absolute Neuts (auto) Absolute Lymphs (auto) Nucleated RBC % Sodium Potassium Chloride Carbon Dioxide Anion Gap BUN Creatinine Estim Creat Clear Calc Est GFR (MDRD) Af Amer Est GFR (MDRD) Non-Af BUN/Creatinine Ratio Glucose Lactic Acid Calcium Total Bilirubin AST ALT Alkaline Phosphatase Troponin I Total Protein Albumin Globulin Albumin/Globulin Ratio POC Glucose 117 H Blood Type Antibody Screen Microbiology 12/30/20 Unknown Nasal Secretion SARS-CoV-2 Antigen (Rapid) - Final Medical Necessity - Tobacco Use Smoking Status: Never smoker Tobacco Use: Non-smoker Assessment/Plan All Active Problems (Last Reviewed 11/11/20 @ 13:37 by Wilmer Portillo RECYCLING COORDINATOR, RECYCLING COORDINATOR-C) Hemorrhagic shock (Acute) Upper GI bleed (Acute) Anemia due to blood loss, acute (Acute) Lactic acidosis (Acute) Sinus tachycardia (Acute) alf (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 of anticoagulants (Acute) RECOMMENDATIONS: 1. Transfuse 1 unit of packed red blood cells. 2. Check H&H posttransfusion. 3. Continue twice daily PPI and Carafate as ordered. 4. Encourage incentive spirometer use and mobilize patient as tolerated. IMPRESSIONS: 1. Blood loss anemia with concern for gastrointestinal hemorrhage Upper endoscopy did reveal a nonbleeding gastric ulcer. The patient has otherwise remained hemodynamically stable. Hemoglobin did drop to 7.4 g/dL this morning. Therefore, we will plan to administer 1 unit of packed red blood cells. The patient will be continued on twice daily PPI therapy and Carafate per surgery recommendations. Continue to monitor H&H daily. Continue to hold Eliquis. 2. 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 Continue home medications as indicated. This note was generated with [employer] dictation software. It may contain incorrect words, spelling, and punctuation that were not noted in checking the note before signing. Inpatient E&M: 90318 Subs Hosp L2
[2020-12-31] MEDS: Sucralfate 1 GM Tablet PO ×4 (06:46→21:56)
[2020-12-31 06:55] LABS: Bedside Glucose 142 mg/dL (70-110)
--- NOTE | 2020-12-31 09:55 | PN.SURG_ITS ---
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 She has no abdominal pain. No nausea or vomiting. She tolerated liquids. - Physical Exam Vitals/I&O's: Vital Signs Temp Pulse Resp BP Pulse Ox 98 F 94 19 H 131/60 H 96 12/31/20 09:29 12/31/20 09:29 12/31/20 09:29 12/31/20 09:29 12/31/20 09:29 Oxygen Flow Rate (L/min) 2 Oxygen Delivery Method Room Air Weight: 156 lb 15.506 oz Body Mass Index (BMI) 30.3 Intake and Output for Last 24 Hours 12/29/20 12/30/20 12/31/20 23:59 23:59 23:59 Intake Total 1084.67 / 1084.67 1882.16 / 1882.16 0 / 0 Output Total 150 / 150 1450 / 1450 600 / 600 Balance 934.67 / 934.67 432.16 / 432.16 -600 / -600 General: Alert, Oriented x3, Cooperative Lungs: Normal air movement Cardiovascular: Regular rate, Regular Rhythm Abdomen: Soft, Non Tender, Non-Distended Microbiology Past 72 Hours 12/30/20 Unknown Nasal Secretion SARS-CoV-2 Antigen (Rapid) - Final Laboratory Results 12/29/20 16:55: Crossmatch See Detail 12/30/20 12:39: POC Glucose 164 H 12/30/20 17:30: POC Glucose 207 H 12/30/20 20:57: POC Glucose 117 H 12/31/20 03:50: WBC 6.0, RBC 2.43 L, Hgb 7.4 L, Hct 23.2 L, MCV 95.5, MCH 30.5, MCHC 31.9 L, RDW Std Deviation 45.2 H, RDW Coeff of Keren 13.1, Plt Count 135 L, MPV 11.1 12/31/20 06:49: POC Glucose 142 H Current Medications Carvedilol (Carvedilol 6.25 Mg Tablet) 6.25 mg PO BID [facility] Last Admin: 12/30/20 21:35 Dose: 6.25 mg Documented by: Insulin Human Lispro (Insulin Lispro 100 Unit/Ml Insuln.Pen) 0 unit SC [facility]; Protocol Last Admin: 12/31/20 06:51 Dose: Not Given Documented by: Ondansetron HCl (Ondansetron 4 Mg/2 Ml Vial) 4 mg IV Q8H PRN PRN PRN Reason: NAUSEA/VOMITING Pantoprazole Sodium (Pantoprazole Sodium 40 Mg Tablet) 40 mg PO BID [facility] Last Admin: 12/30/20 21:36 Dose: 40 mg Documented by: Sodium Chloride (0.9% Saline Lock 10 Ml Syringe) 10 - 40 ml IV UD PRN PRN Reason: SALINE FLUSH Sucralfate (Sucralfate 1 Gm Tablet) 1 gm PO 1HR_[facility] Last Admin: 12/31/20 06:46 Dose: 1 gm Documented by: Medical Necessity - Tobacco Use Smoking Status: Never smoker Tobacco Use: Non-smoker Assessment/Plan All Active Problems (Last Reviewed 11/11/20 @ 13:37 by Wilmer Portillo INSULATION ESTIMATOR, INSULATION ESTIMATOR-C) Hemorrhagic shock (Acute) Upper GI bleed (Acute) Anemia due to blood loss, acute (Acute) Lactic acidosis (Acute) Sinus tachycardia (Acute) 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 The patient had nonbleeding ulcer during EGD yesterday in the prepyloric region. Her hemoglobin did drop this morning but she had no bloody bowel movements or nausea or vomiting and no abdominal pain. I believe this may be dilutional. She is receiving transfusion. Continue PPI and Carafate. Holding Eliquis at this time. Xiang Robledo MD Pager: [facility] [address] [place] [address], [address] [place] [address] Office:
[2020-12-31] MEDS: Carvedilol 6.25 MG Tablet PO ×2 (11:33→21:56)
[2020-12-31] MEDS: Pantoprazole Sodium 40 MG Tablet PO ×2 (11:34→21:57)
[2020-12-31] MEDS: Insulin Lispro 100 UNIT/ML INSULN.PEN SC (11:41)
[2020-12-31 11:46] LABS: Bedside Glucose 153 mg/dL (70-110)
--- NOTE | 2020-12-31 11:56 | CASEMGMT ---
Addendum entered by Pablo Burton 12/31/20 12:07: PT/OT notes have been reviewed--additional therapy recommended. AUDREY PICKENS to room to discuss HHC w/pt. Pt made aware of [facility]'s guidelines for being homebound. Pt states she is not homebound, stating it is not difficult for her to get in/out of a car to go places. Discussed OP therapy with pt. She states she would be interested in doing OP thearpy @ [facility] as she has been there in the past. Pt states she uses [employer] transportation. She was made aware [facility] transp does go to [employer] and she voices appreciation. Pt made aware she will be given a script for OP therapy prior to discharge. Original Note: AUDREY PICKENS NOTE: Palliative screening tool completed for [employer]. Pt does not meet criteria for Palliative referral at this time. Charlie SERRANO RN, CM
--- NOTE | 2020-12-31 15:33 | PN_ITS ---
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 Objective: Patient hemoglobin dropped today 7.4. Patient tolerated clear liquid and diet advance to soft diet. Platelet count 1 35,000. Hemodynamically blood pressure and heart rate stable. Mild tachypnea but no hypoxia Physical exam General: Alert, Oriented x3, Cooperative HEENT: Atraumatic, PERRLA, EOMI, Normocephalic Oral: No Gingival or Mucosal Lesions/ Ulcerations Neck: Supple, No JVD, Negative Carotid Bruits Lungs: Air entry diminished in bilateral lung bases. No crepitation/rhonchi Cardiovascular: Regular rate, Regular Rhythm, Normal S1, Normal S2, No murmurs Abdomen: Bowel Sounds Present, Soft, Non Tender, Non-Distended : No renal angle tenderness. No suprapubic tenderness. Extremities: Mild bilateral ankle edema, Capillary Refill Less than 3 Seconds Skin: No rashes, No breakdown Musculoskeletal: No Tenderness to Palpation of Joints or Extremities. Mild bilateral lower extremity weakness, chronic Neurological: Cranial nerves II-XII grossly intact, Deep Tendon Reflexes 2+/4 and Symmetrical, Neuro grossly intact Psych/Mental Status: Normal Affect, Appropriate. Vitals/I&O's: Vital Signs Temp Pulse Resp BP Pulse Ox 98 F 81 24 H 110/48 L 93 12/31/20 14:00 12/31/20 14:00 12/31/20 14:00 12/31/20 14:00 12/31/20 14:00 Oxygen Flow Rate (L/min) 2 Oxygen Delivery Method Room Air Weight: 156 lb 15.506 oz Body Mass Index (BMI) 30.3 Intake and Output for Last 24 Hours 12/29/20 12/30/20 12/31/20 23:59 23:59 23:59 Intake Total 1084.67 / 1084.67 1882.16 / 1882.16 880 / 880 Output Total 150 / 150 1450 / 1450 600 / 600 Balance 934.67 / 934.67 432.16 / 432.16 280 / 280 Microbiology Past 72 Hours 12/30/20 Unknown Nasal Secretion SARS-CoV-2 Antigen (Rapid) - Final Laboratory Results 12/29/20 16:55: Crossmatch See Detail 12/30/20 17:30: POC Glucose 207 H 12/30/20 20:57: POC Glucose 117 H 12/31/20 03:50: WBC 6.0, RBC 2.43 L, Hgb 7.4 L, Hct 23.2 L, MCV 95.5, MCH 30.5, MCHC 31.9 L, RDW Std Deviation 45.2 H, RDW Coeff of Keren 13.1, Plt Count 135 L, MPV 11.1 12/31/20 06:49: POC Glucose 142 H 12/31/20 11:37: POC Glucose 153 H Current Medications Carvedilol (Carvedilol 6.25 Mg Tablet) 6.25 mg PO BID [facility] Last Admin: 12/31/20 11:33 Dose: 6.25 mg Documented by: Insulin Human Lispro (Insulin Lispro 100 Unit/Ml Insuln.Pen) 0 unit SC [facility]; Protocol Last Admin: 12/31/20 11:41 Dose: 1 units Documented by: Ondansetron HCl (Ondansetron 4 Mg/2 Ml Vial) 4 mg IV Q8H PRN PRN PRN Reason: NAUSEA/VOMITING Pantoprazole Sodium (Pantoprazole Sodium 40 Mg Tablet) 40 mg PO BID [facility] Last Admin: 12/31/20 11:34 Dose: 40 mg Documented by: Sodium Chloride (0.9% Saline Lock 10 Ml Syringe) 10 - 40 ml IV UD PRN PRN Reason: SALINE FLUSH Sucralfate (Sucralfate 1 Gm Tablet) 1 gm PO 1HR_[facility] Last Admin: 12/31/20 11:34 Dose: 1 gm Documented by: STROKE Vital Signs/Narrative: Vital Signs Temp Pulse Resp BP Pulse Ox 12/31/20 14:00 98 F 81 24 H 110/48 L 93 12/31/20 12:00 82 Medical Necessity - Tobacco Use Smoking Status: Never smoker Tobacco Use: Non-smoker Assessment/Plan All Active Problems (Last Reviewed 11/11/20 @ 13:37 by Wilmer Portillo RACE ENGINE BUILDER, RACE ENGINE BUILDER-C) Hemorrhagic shock (Acute) Upper GI bleed (Acute) Anemia due to blood loss, acute (Acute) Lactic acidosis (Acute) Sinus tachycardia (Acute) 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 #Acute blood loss anemia due to nonbleeding gastric ulcer/upper GI bleed: Patient had EGD in the afternoon and found to have nonbleeding gastric ulcer with no stigmata of bleeding. Normal esophagus. Normal duodenum. Started on clear liquid diet. Discussed with the surgeon. IV Protonix changed to p.o. Protonix. Carafate added. Continue holding Eliquis for another 24 hours. She also uses NSAID/Aleve once or twice a week. Heart rate in the 90s to low 100s. 12/31: Hemoglobin again dropped therefore 1 unit of PRBC on transfusion. Continue PPI and Carafate. Diet advanced to soft. #Lactic acidosis: Patient was well hydrated with IV fluid. Repeat lactic acid normal. Mild tachypnea, encourage incentive spirometry. No hypoxia #Type 2 diabetes mellitus: Accu-Cheks before meals and at bedtime. On sliding scale insulin. Hold oral glimepiride. 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 Patient is a high risk of thrombosis therefore will start Eliquis tomorrow. #Hypertension: Continue current meds-ramipril. #CAD: On carvedilol and statin. #History of heart failure with reduced ejection fraction: On furosemide 40 mg daily. 3 fluid is discontinued. DVT prophylaxis: SCDs. No anticoagulation on account of GI bleed Home medication reconciliation done. Code status: full code Total time of the visit including total time spent in counseling or coordination of care, (more than 50% of the total time, spent in obtaining medical information from nurses and other ancillary care providers,explaining to the patient about labs, imaging, diagnosis and management), discussion with data integrity consultant, review of labs and imaging is 30 minutes. Microbiology Past 72 Hours 12/30/20 Unknown Nasal Secretion SARS-CoV-2 Antigen (Rapid) - Final Laboratory Results 12/29/20 16:55: Crossmatch See Detail 12/30/20 17:30: POC Glucose 207 H 12/30/20 20:57: POC Glucose 117 H 12/31/20 03:50: WBC 6.0, RBC 2.43 L, Hgb 7.4 L, Hct 23.2 L, MCV 95.5, MCH 30.5, MCHC 31.9 L, RDW Std Deviation 45.2 H, RDW Coeff of Keren 13.1, Plt Count 135 L, MPV 11.1 12/31/20 06:49: POC Glucose 142 H 12/31/20 11:37: POC Glucose 153 H Inpatient E&M: 51479 Subs Hosp L2
[2020-12-31 16:46] LABS: Bedside Glucose 136 mg/dL (70-110)
--- NOTE | 2020-12-31 17:25 | NURSING ---
Report given to AUDREY Gardiner.
[2020-12-31 22:36] LABS: Bedside Glucose 141 mg/dL (70-110)
[2021-01-01 02:57] VITALS: PULSE 85
[2021-01-01 03:32] VITALS: BP 109/54; PULSE 87; RESP 18; TEMP 36.7; O2SAT 95
[2021-01-01 05:35] LABS: Absolute Lymphocyte Count 2.28 X10^3/uL (0.83-4.51); Absolute Neutrophil Count 2.5 X10^3/uL (2.0-7.7); Basophil# 0.02 X10^3/uL; Basophil% 0.4 % (0-1); Eosinophils% 7.3 % (0-5); Hematocrit 27.1 % (37-47); Hemoglobin 8.7 g/dL (12.0-15.0); Lymphocyte # 2.28 X10^3/ul (0.83-4.51); Lymphocyte % 41.4 % (19-41); Mean Corp Hgb Conc 32.1 g/dL (32-36); Mean Corpuscular Hgb 29.6 pg (27.0-32.0); Mean Corpuscular Volume 92.2 fL (81-99); Mean Platelet Vol. 10.4 fl (6.2-12.0); Monocyte# 0.29 X10^3/uL; Monocyte% 5.3 % (0-10); NRBC Flagged by Analyzer 0 % (0-5); Neutrophil % 45.2 % (47-70); Platelet Count 141 K/mm3 (150-450); RBC Distribution Width SD 42.5 fl (35.1-43.9); Red Blood Count 2.94 M/mm3 (4.2-5.4); White Blood Count 5.5 K/mm3 (4.4-11.0)
[2021-01-01 05:52] LABS: Anion Gap 4 (5-15); BUN 13 mg/dL (7-18); BUN/Creat Ratio 15.6 RATIO (10-20); Calcium,Total 9.4 mg/dL (8.5-10.1); Chloride 110 mmol/L (98-107); Creatinine, Serum 0.83 mg/dL (0.55-1.02); EST Glomerular Filtration Rate 69 mL/min (>60); Est Glom Filt Rate - Afr Amer 84 mL/min (>60); Estimated Creatinine Clearance 35.59 ml/min; Glucose 156 mg/dL (74-106); Potassium 3.9 mmol/L (3.5-5.1); Sodium Level 139 mmol/L (136-145)
[2021-01-01] MEDS: Sucralfate 1 GM Tablet PO ×2 (06:03→12:09)
[2021-01-01] MEDS: Insulin Lispro 100 UNIT/ML INSULN.PEN SC (06:34)
[2021-01-01 06:46] LABS: Bedside Glucose 155 mg/dL (70-110)
[2021-01-01 07:15] VITALS: PULSE 86
--- NOTE | 2021-01-01 07:18 | PN_ITS ---
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 Events from the last 24 hours have been reviewed. The patient is currently afebrile, hemodynamically stable and maintaining appropriate oxygen saturations on room air. The patient did receive 1 unit of packed red blood cells yesterday. Hemoglobin has improved appropriately this morning to 8.7 g/dL. The patient remains on twice daily PPI therapy along with Carafate. The patient is without any abdominal pain. Objective: The patient's most recent lab work, culture data and imaging studies have all been personally reviewed. - Physical Exam Vitals/I&O's: Vital Signs Temp Pulse Resp BP Pulse Ox 98.0 F 87 18 109/54 L 95 01/01/21 03:32 01/01/21 03:32 01/01/21 03:32 01/01/21 03:32 01/01/21 03:32 Oxygen Flow Rate (L/min) 2 Oxygen Delivery Method Room Air Weight: 158 lb 11.725 oz Body Mass Index (BMI) 30.3 Intake and Output for Last 24 Hours 12/30/20 12/31/20 01/01/21 23:59 23:59 23:59 Intake Total 1882.16 / 1882.16 1080 / 1080 200 / 200 Output Total 1450 / 1450 600 / 600 Balance 432.16 / 432.16 480 / 480 200 / 200 General: Alert, Oriented x3, Cooperative, No apparent distress HEENT: Atraumatic, PERRLA, Normocephalic Oral: Moist Mucosa, No Gingival or Mucosal Lesions/ Ulcerations Neck: Supple, No Nodes, Trachea Midline Lungs: Normal air movement, No rhonchi, No wheeze, No rales Cardiovascular: Regular rate, Regular Rhythm Abdomen: Bowel Sounds Present, Soft, Non Tender Extremities: No clubbing, No cyanosis, No edema Skin: No breakdown Musculoskeletal: No Tenderness to Palpation of Joints or Extremities Lymphatic: No Cervical, Supraclavicular, or Inguinal Adenopathy Neurological: Cranial nerves II-XII grossly intact, Neuro grossly intact Psych/Mental Status: Alert and oriented to time, place, person, mood and affect Labs (Last 48 Hours) 12/29/20 12/30/20 12/30/20 16:55 12:39 17:30 WBC RBC Hgb Hct MCV MCH MCHC RDW Std Deviation RDW Coeff of Keren Plt Count MPV Immature Gran % (Auto) Neut % (Auto) Lymph % (Auto) [place] % (Auto) Eos % (Auto) Baso % (Auto) Absolute Neuts (auto) Absolute Lymphs (auto) Nucleated RBC % Sodium Potassium Chloride Carbon Dioxide Anion Gap BUN Creatinine Estim Creat Clear Calc Est GFR (MDRD) Af Amer Est GFR (MDRD) Non-Af BUN/Creatinine Ratio Glucose Calcium POC Glucose 164 H 207 H Crossmatch See Detail 12/30/20 12/31/20 12/31/20 20:57 03:50 06:49 WBC 6.0 RBC 2.43 L Hgb 7.4 L Hct 23.2 L MCV 95.5 MCH 30.5 MCHC 31.9 L RDW Std Deviation 45.2 H RDW Coeff of Keren 13.1 Plt Count 135 L MPV 11.1 Immature Gran % (Auto) Neut % (Auto) Lymph % (Auto) [place] % (Auto) Eos % (Auto) Baso % (Auto) Absolute Neuts (auto) Absolute Lymphs (auto) Nucleated RBC % Sodium Potassium Chloride Carbon Dioxide Anion Gap BUN Creatinine Estim Creat Clear Calc Est GFR (MDRD) Af Amer Est GFR (MDRD) Non-Af BUN/Creatinine Ratio Glucose Calcium POC Glucose 117 H 142 H Crossmatch 12/31/20 12/31/20 12/31/20 11:37 16:32 21:54 WBC RBC Hgb Hct MCV MCH MCHC RDW Std Deviation RDW Coeff of Keren Plt Count MPV Immature Gran % (Auto) Neut % (Auto) Lymph % (Auto) [place] % (Auto) Eos % (Auto) Baso % (Auto) Absolute Neuts (auto) Absolute Lymphs (auto) Nucleated RBC % Sodium Potassium Chloride Carbon Dioxide Anion Gap BUN Creatinine Estim Creat Clear Calc Est GFR (MDRD) Af Amer Est GFR (MDRD) Non-Af BUN/Creatinine Ratio Glucose Calcium POC Glucose 153 H 136 H 141 H Crossmatch 0401/01/21 01/01/21 05:25 05:25 06:31 WBC 5.5 RBC 2.94 L Hgb 8.7 L Hct 27.1 L MCV 92.2 MCH 29.6 MCHC 32.1 RDW Std Deviation 42.5 RDW Coeff of Keren 13.0 Plt Count 141 L MPV 10.4 Immature Gran % (Auto) 0.400 Neut % (Auto) 45.2 L Lymph % (Auto) 41.4 H [place] % (Auto) 5.3 Eos % (Auto) 7.3 H Baso % (Auto) 0.4 Absolute Neuts (auto) 2.5 Absolute Lymphs (auto) 2.28 Nucleated RBC % 0 Sodium 139 Potassium 3.9 Chloride 110 H Carbon Dioxide 25.0 Anion Gap 4 L BUN 13 Creatinine 0.83 Estim Creat Clear Calc 35.59 Est GFR (MDRD) Af Amer 84 Est GFR (MDRD) Non-Af 69 BUN/Creatinine Ratio 15.6 Glucose 156 H Calcium 9.4 POC Glucose 155 H Crossmatch Current Medications Carvedilol (Carvedilol 6.25 Mg Tablet) 6.25 mg PO BID [facility] Last Admin: 12/31/20 21:56 Dose: 6.25 mg Documented by: Insulin Human Lispro (Insulin Lispro 100 Unit/Ml Insuln.Pen) 0 unit SC [facility]; Protocol Last Admin: 01/01/21 06:34 Dose: 1 units Documented by: Ondansetron HCl (Ondansetron 4 Mg/2 Ml Vial) 4 mg IV Q8H PRN PRN PRN Reason: NAUSEA/VOMITING Pantoprazole Sodium (Pantoprazole Sodium 40 Mg Tablet) 40 mg PO BID [facility] Last Admin: 12/31/20 21:57 Dose: 40 mg Documented by: Sodium Chloride (0.9% Saline Lock 10 Ml Syringe) 10 - 40 ml IV UD PRN PRN Reason: SALINE FLUSH Sucralfate (Sucralfate 1 Gm Tablet) 1 gm PO 1HR_[facility] Last Admin: 01/01/21 06:03 Dose: 1 gm Documented by: Medical Necessity - Tobacco Use Smoking Status: Never smoker Tobacco Use: Non-smoker Assessment/Plan All Active Problems (Last Reviewed 11/11/20 @ 13:37 by Wilmer Portillo CHAIN BUILDER LOOM CONTROL, CHAIN BUILDER LOOM CONTROL-C) Hemorrhagic shock (Acute) Upper GI bleed (Acute) Anemia due to blood loss, acute (Acute) Lactic acidosis (Acute) Sinus tachycardia (Acute) long term care social worker (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 of anticoagulants (Acute) RECOMMENDATIONS: 1. Continue to monitor blood counts daily and transfuse if hemoglobin drops below 7 g/dL. 2. Continue twice daily PPI and Carafate, as ordered. 3. Resume Eliquis when okay from a surgery perspective. 4. Encourage incentive spirometer use and mobilize patient as tolerated. 5. Given the patient's lack of further ICU needs, will sign off. Please call with any additional questions. IMPRESSIONS: 1. Blood loss anemia with concern for gastrointestinal hemorrhage Upper endoscopy did reveal a nonbleeding gastric ulcer. The patient has otherwise remained hemodynamically stable. Hemoglobin did drop to 7.4 g/dL during this hospitalization, for which she received 1 unit of packed red blood cells. Plan to continue twice daily PPI therapy and Carafate. Continue to monitor H&H daily and transfuse if hemoglobin drops below 7 g/dL. Resume E liquis once okay from a surgical perspective. 2. 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 Continue home medications as indicated. This note was generated with [employer] dictation software. It may contain incorrect words, spelling, and punctuation that were not noted in checking the note before signing. Inpatient E&M: 40042 [facility] L2
--- NOTE | 2021-01-01 07:24 | PN.SURG_ITS ---
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 She has no abdominal pain and tolerated diet. - Physical Exam Vitals/I&O's: Vital Signs Temp Pulse Resp BP Pulse Ox 98.0 F 87 18 109/54 L 95 01/01/21 03:32 01/01/21 03:32 01/01/21 03:32 01/01/21 03:32 01/01/21 03:32 Oxygen Flow Rate (L/min) 2 Oxygen Delivery Method Room Air Weight: 158 lb 11.725 oz Body Mass Index (BMI) 30.3 Intake and Output for Last 24 Hours 12/30/20 12/31/20 01/01/21 23:59 23:59 23:59 Intake Total 1882.16 / 1882.16 1080 / 1080 200 / 200 Output Total 1450 / 1450 600 / 600 Balance 432.16 / 432.16 480 / 480 200 / 200 General: Alert, Oriented x3 Lungs: Normal air movement Abdomen: Soft, Non Tender, Non-Distended Microbiology Past 72 Hours 12/30/20 Unknown Nasal Secretion SARS-CoV-2 Antigen (Rapid) - Final Laboratory Results 12/29/20 16:55: Crossmatch See Detail 12/31/20 11:37: POC Glucose 153 H 12/31/20 16:32: POC Glucose 136 H 12/31/20 21:54: POC Glucose 141 H 01/01/21 05:25: WBC 5.5, RBC 2.94 L, Hgb 8.7 L, Hct 27.1 L, MCV 92.2, MCH 29.6, MCHC 32.1, RDW Std Deviation 42.5, RDW Coeff of Keren 13.0, Plt Count 141 L, MPV 10.4, Immature Gran % (Auto) 0.400, Neut % (Auto) 45.2 L, Lymph % (Auto) 41.4 H, [place] % (Auto) 5.3, Eos % (Auto) 7.3 H, Baso % (Auto) 0.4, Absolute Neuts (auto) 2.5, Absolute Lymphs (auto) 2.28, Nucleated RBC % 0 01/01/21 05:25: Sodium 139, Potassium 3.9, Chloride 110 H, Carbon Dioxide 25.0, Anion Gap 4 L, BUN 13, Creatinine 0.83, Estim Creat Clear Calc 35.59, Est GFR ( MDRD) Af Amer 84, Est GFR (MDRD) Non-Af 69, BUN/Creatinine Ratio 15.6, Glucose 156 H, Calcium 9.4 01/01/21 06:31: POC Glucose 155 H Current Medications Carvedilol (Carvedilol 6.25 Mg Tablet) 6.25 mg PO BID [facility] Last Admin: 12/31/20 21:56 Dose: 6.25 mg Documented by: Insulin Human Lispro (Insulin Lispro 100 Unit/Ml Insuln.Pen) 0 unit SC [facility]; Protocol Last Admin: 01/01/21 06:34 Dose: 1 units Documented by: Ondansetron HCl (Ondansetron 4 Mg/2 Ml Vial) 4 mg IV Q8H PRN PRN PRN Reason: NAUSEA/VOMITING Pantoprazole Sodium (Pantoprazole Sodium 40 Mg Tablet) 40 mg PO BID [facility] Last Admin: 12/31/20 21:57 Dose: 40 mg Documented by: Sodium Chloride (0.9% Saline Lock 10 Ml Syringe) 10 - 40 ml IV UD PRN PRN Reason: SALINE FLUSH Sucralfate (Sucralfate 1 Gm Tablet) 1 gm PO 1HR_[facility] Last Admin: 01/01/21 06:03 Dose: 1 gm Documented by: Medical Necessity - Tobacco Use Smoking Status: Never smoker Tobacco Use: Non-smoker Assessment/Plan All Active Problems (Last Reviewed 11/11/20 @ 13:37 by Wilmer Portillo BUSINESS MANAGEMENT INTERN, BUSINESS MANAGEMENT INTERN-C) Hemorrhagic shock (Acute) Upper GI bleed (Acute) Anemia due to blood loss, acute (Acute) Lactic acidosis (Acute) Sinus tachycardia (Acute) 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 The patient had a gastric ulcer on EGD. She is on Carafate and PPI and should be discharged on both these medications. Resume Eliquis today or tomorrow and follow-up with PCP in 1 week for hemoglobin check. Follow-up with me as needed. Xiang Robledo MD Pager: [facility] [address] [place] [address] [phone] [phone] Office:
[2021-01-01 09:24] VITALS: BP 120/64; PULSE 91; RESP 16; TEMP 36.9; O2SAT 96
[2021-01-01] MEDS: Carvedilol 6.25 MG Tablet PO (09:48)
[2021-01-01] MEDS: Pantoprazole Sodium 40 MG Tablet PO (09:48)
--- NOTE | 2021-01-01 09:58 | PCM.DC ---
- Discharge Diagnoses Current Active Problems: Current Active and Chronic Problems (Last Reviewed 11/11/20 @ 13:37 by Wlimer Portillo RECREATION ACTIVITIES COORDINATOR, RECREATION ACTIVITIES COORDINATOR-C) Hemorrhagic shock (Acute) Upper GI bleed (Acute) Anemia due to blood loss, acute (Acute) Lactic acidosis (Acute) Sinus tachycardia (Acute) skilled nursing (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 of anticoagulants (Acute) History of implantable cardiac defibrillator (ICD) (Chronic 01/31/13) Nonischemic cardiomyopathy (Chronic) Chronic systolic (congestive) heart failure (Chronic) Essential (primary) hypertension (Chronic) 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, 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) Ventricular tachycardia (Chronic) Dyslipidemia (Chronic) You will use the following diet at home:: Calorie/Carbohydrate Controlled (specify 1200, 1400, etc), Cardiac Your food should be the consistency of: Regular Discharge Activity: May Not Drive Weight Bearing Status: Weight bearing as tolerated Call your doctor if you observe: Fever of 101 or Higher, Numbness or Tingling, Change in Color, Inability to urinate, Inability to have a bowel movement, Using more than one pad per hour, Shortness of breath, Dizziness, Fainting spells, Swelling in the ankles, Chest pain, Increased palpitations (irregular heartbeat), Calf discomfort, Uncontrolled pain Allergies/Adverse Reactions: Allergies No Known Allergies Allergy (Verified 12/29/20 16:16) Medications to take at Discharge glimepiride 1 mg tablet 1 mg PO DAILY 14 Days #14 01/10/18 Apixaban [Eliquis] 5 mg PO BID 12/29/20 Carvedilol 25 mg PO BID 12/29/20 Furosemide 40 mg PO DAILY 12/29/20 Multivit-Min/Iron/Folic/Lutein [Centrum Silver Women Tablet] 1 each PO DAILY 12/29/20 Ramipril 2.5 mg PO DAILY 12/29/20 Pantoprazole Sodium [Protonix] 40 mg PO BID #60 tablet 01/01/21 Sucralfate [Carafate] 1 gm PO 1HR_[facility] #90 tablet 01/01/21 The following prescriptions were given: Sucralfate [Carafate] 1 gm PO 1HR_[facility] #90 tablet Transmission Status: Pending to [id number] Pantoprazole Sodium [Protonix] 40 mg PO BID #60 tablet Transmission Status: Pending to [id number] Primary Care Physician: Maria Teresa Pedroza DO [Primary Care Provider] - Please follow up with your Primary Care Physician in: in 1 week with Hemoglobin check Test Results: Test results from this visit will be discussed in further detail at your follow-up appointment, if applicable. Please Follow Up With: Xiang Robledo MD When: in 2 weeks for gastric biopsy
--- NOTE | 2021-01-01 10:02 | DS.PCM_ITS ---
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) Date of Admission: 12/29/20 Date of Discharge: 01/01/21 - Primary Discharge Diagnosis Acute Problems: Active Problems (Last Reviewed 11/11/20 @ 13:37 by Wilmer Portillo COMMERCIAL SOLAR SALES CONSULTANT, COMMERCIAL SOLAR SALES CONSULTANT-C) Hemorrhagic shock (Acute) Upper GI bleed (Acute) Anemia due to blood loss, acute (Acute) Lactic acidosis (Acute) Sinus tachycardia (Acute) intermediate (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 of anticoagulants (Acute) - Secondary Discharge Diagnosis Chronic Problems: Chronic Problems (Last Reviewed 11/11/20 @ 13:37 by Wilmer Portillo COMMERCIAL SOLAR SALES CONSULTANT, COMMERCIAL SOLAR SALES CONSULTANT-C) History of implantable cardiac defibrillator (ICD) (Chronic) History of implantable cardiac defibrillator (ICD) (Chronic 01/31/13) Nonischemic cardiomyopathy (Chronic) Chronic systolic (congestive) heart failure (Chronic) Essential (primary) hypertension (Chronic) 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 #Acute blood loss anemia due to nonbleeding gastric ulcer/upper GI bleed: Patient had EGD in the afternoon and found to have nonbleeding gastric ulcer with no stigmata of bleeding. Normal esophagus. Normal duodenum. Started on clear liquid diet. Discussed with the surgeon. IV Protonix changed to p.o. Protonix. Carafate added. Continue holding Eliquis for another 24 hours. She also uses NSAID/Aleve once or twice a week. Heart rate in the 90s to low 100s. Hemoglobin improved to 8.7. Patient discharged on PPI twice daily and Carafate and advised to resume Eliquis, CBC in 1 week and follow-up with PCP. #Lactic acidosis: Patient was well hydrated with IV fluid. Repeat lactic acid normal. No infection or sepsis. Mild tachypnea, encourage incentive spirometry. No hypoxia #Type 2 diabetes mellitus: Accu-Cheks before meals and at bedtime. On sliding scale insulin. Hold oral glimepiride. 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 #Hypertension: Continue current meds-ramipril. #CAD: On carvedilol and statin. #History of heart failure with reduced ejection fraction chronic HFrEF: On furosemide 40 mg daily. DVT prophylaxis: SCDs. No anticoagulation on account of GI bleed Code status: full code Discharge medication reconciliation done. Discharge follow-up instructions completed. Discharge process discussed with the patient and all questions were answered to patient's satisfaction. 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 No new complaint. Patient tolerated soft diet. H&H is stable. Patient wants to go home Physical exam General: Alert, Oriented x3, Cooperative HEENT: Atraumatic, PERRLA, EOMI, Normocephalic Oral: No Gingival or Mucosal Lesions/ Ulcerations Neck: Supple, No JVD, Negative Carotid Bruits Lungs: Air entry diminished in bilateral lung bases. No crepitation/rhonchi Cardiovascular: Regular rate, Regular Rhythm, Normal S1, Normal S2, No murmurs Abdomen: Bowel Sounds Present, Soft, Non Tender, Non-Distended : No renal angle tenderness. No suprapubic tenderness. Extremities: Ankle edema improved, Capillary Refill Less than 3 Seconds Skin: No rashes, No breakdown Musculoskeletal: No Tenderness to Palpation of Joints or Extremities. Mild bilateral lower extremity weakness, chronic Neurological: Cranial nerves II-XII grossly intact, Deep Tendon Reflexes 2+/4 a nd Symmetrical, Neuro grossly intact Psych/Mental Status: Normal Affect, Appropriate. - Physical Exam Vitals/I&O's: Vital Signs Temp Pulse Resp BP Pulse Ox 98.5 F 91 16 120/64 96 01/01/21 09:24 01/01/21 09:24 01/01/21 09:24 01/01/21 09:24 01/01/21 09:24 Oxygen Flow Rate (L/min) 2 Oxygen Delivery Method Room Air Weight: 158 lb 11.725 oz Body Mass Index (BMI) 30.3 Intake and Output for Last 24 Hours 12/30/20 12/31/20 01/01/21 23:59 23:59 23:59 Intake Total 1882.16 / 1882.16 1080 / 1080 200 / 200 Output Total 1450 / 1450 600 / 600 Balance 432.16 / 432.16 480 / 480 200 / 200 Microbiology Past 72 Hours 12/30/20 Unknown Nasal Secretion SARS-CoV-2 Antigen (Rapid) - Final Laboratory Results 12/29/20 16:55: Crossmatch See Detail 12/31/20 11:37: POC Glucose 153 H 12/31/20 16:32: POC Glucose 136 H 12/31/20 21:54: POC Glucose 141 H 01/01/21 05:25: WBC 5.5, RBC 2.94 L, Hgb 8.7 L, Hct 27.1 L, MCV 92.2, MCH 29.6, MCHC 32.1, RDW Std Deviation 42.5, RDW Coeff of Keren 13.0, Plt Count 141 L, MPV 10.4, Immature Gran % (Auto) 0.400, Neut % (Auto) 45.2 L, Lymph % (Auto) 41.4 H, [place] % (Auto) 5.3, Eos % (Auto) 7.3 H, Baso % (Auto) 0.4, Absolute Neuts (auto) 2.5, Absolute Lymphs (auto) 2.28, Nucleated RBC % 0 01/01/21 05:25: Sodium 139, Potassium 3.9, Chloride 110 H, Carbon Dioxide 25.0, Anion Gap 4 L, BUN 13, Creatinine 0.83, Estim Creat Clear Calc 35.59, Est GFR (MDRD) Af Amer 84, Est GFR (MDRD) Non-Af 69, BUN/Creatinine Ratio 15.6, Glucose 156 H, Calcium 9.4 01/01/21 06:31: POC Glucose 155 H Current Medications Carvedilol (Carvedilol 6.25 Mg Tablet) 6.25 mg PO BID [facility] Last Admin: 01/01/21 09:48 Dose: 6.25 mg Documented by: Insulin Human Lispro (Insulin Lispro 100 Unit/Ml Insuln.Pen) 0 unit SC [facility]; Protocol Last Admin: 01/01/21 06:34 Dose: 1 units Documented by: Ondansetron HCl (Ondansetron 4 Mg/2 Ml Vial) 4 mg IV Q8H PRN PRN PRN Reason: NAUSEA/VOMITING Pantoprazole Sodium (Pantoprazole Sodium 40 Mg Tablet) 40 mg PO BID [facility] Last Admin: 01/01/21 09:48 Dose: 40 mg Documented by: Sodium Chloride (0.9% Saline Lock 10 Ml Syringe) 10 - 40 ml IV UD PRN PRN Reason: SALINE FLUSH Sucralfate (Sucralfate 1 Gm Tablet) 1 gm PO 1HR_[facility] Last Admin: 01/01/21 06:03 Dose: 1 gm Documented by: Discharge Activity: May Not Drive Weight Bearing Status: Weight bearing as tolerated Call your doctor if you observe: Fever of 101 or Higher, Numbness or Tingling, Change in Color, Inability to urinate, Inability to have a bowel movement, Using more than one pad per hour, Shortness of breath, Dizziness, Fainting spells, Swelling in the ankles, Chest pain, Increased palpitations (irregular heartbeat), Calf discomfort, Uncontrolled pain Home Medications: Medications to take at Discharge glimepiride 1 mg tablet 1 mg PO DAILY 14 Days #14 01/10/18 Apixaban [Eliquis] 5 mg PO BID 12/29/20 Carvedilol 25 mg PO BID 12/29/20 Furosemide 40 mg PO DAILY 12/29/20 Multivit-Min/Iron/Folic/Lutein [Centrum Silver Women Tablet] 1 each PO DAILY 12/29/20 Ramipril 2.5 mg PO DAILY 12/29/20 Pantoprazole Sodium [Protonix] 40 mg PO BID #60 tablet 01/01/21 Sucralfate [Carafate] 1 gm PO 1HR_[facility] #90 tablet 01/01/21 Following Prescriptions Were Given to Patient: Sucralfate [Carafate] 1 gm PO 1HR_[facility] #90 tablet Transmission Status: Received by [facility] Pantoprazole Sodium [Protonix] 40 mg PO BID #60 tablet Transmission Status: Received by [id number] Primary Care Physician: Maria Teresa Pedroza DO [Primary Care Provider] - Please follow up with your Primary Care Physician in: in 1 week with Hemoglobin check Please Follow Up With: Xiang Robledo MD When: in 2 weeks for gastric biopsy Medical Necessity - Tobacco Use Smoking Status: Never smoker Tobacco Use: Non-smoker Meaningful Use Info Meaningful Use Diagnoses (Choose all that apply): None applicable Inpatient E&M: 654[address] [facility]
--- NOTE | 2021-01-01 10:29 | PHA.DC.MC ---
Pharmacy Service has performed discharge medication reconciliation and counseling for this patient. 1. PANTOPRAZOLE 40MG PO BID 2. SUCRALFATE 1GM PO 1HR_[facility] The patient's discharge medication list was reviewed for discrepancies and discrepancies were resolved. Home Medications glimepiride 1 mg tablet 1 mg PO DAILY 14 Days #14 01/10/18 Apixaban [Eliquis] 5 mg PO BID 12/29/20 Carvedilol 25 mg PO BID 12/29/20 Furosemide 40 mg PO DAILY 12/29/20 Multivit-Min/Iron/Folic/Lutein [Centrum Silver Women Tablet] 1 each PO DAILY 12/29/20 Ramipril 2.5 mg PO DAILY 12/29/20 Pantoprazole Sodium [Protonix] 40 mg PO BID #60 tablet 01/01/21 Sucralfate [Carafate] 1 gm PO 1HR_[facility] #90 tablet 01/01/21 The patient was counseled on the following discharge medications and changes in medications for homegoing were reviewed. The Reason for Use, instructions for use, and potential side effects were reviewed for all new medications. The patient's questions regarding all of their medications were answered. The patient was able to verbally demonstrate an understanding of their discharge medications.
--- NOTE | 2021-01-01 12:44 | NURSING ---
This RN reviewed and agree with Iris Villeda RNtool and die designer
--- NOTE | 2021-01-05 15:00 | CASEMGMT ---
AUDREY PICKENS Discharge F/U Phone Call LACE: 11 Strata: 3 Discharge date: 01/01/21 Call date: 01/05/21 Call time: 1501 Admission dx: GI bleed Pt states has been doing 'pretty good' since discharge. Pt states no questions regarding discharge instructions/medications. Pt states [facility] called to schedule OP therapy appt and she is aware to call them back. Pt states has f/u appt with Dr. Pedroza tomorrow and plans to keep. Pt states no suggestions for [facility] and states no further questions/concerns/needs. [place] AUDREY PICKENS
== END 2021-01-01 12:33 | disposition home or self-care (01) | DRG 377 ==
LOC: ED 17:58 → ICU 18:16 → PCU 12-31 17:55
PROVIDERS: Internal Medicine Critical Care Medicine; Nurse Practitioner Family; Surgery; Admitting Provider Student in an Organized Health Care Education/Training Program; Emergency Provider Emergency Medicine; PCP Family Medicine; Visit Provider Internal Medicine
PROC: 0DJ08ZZ Inspection of Upper Intestinal Tract, Via Natural or Artificial Opening Endoscopic (ICD-10-PCS; CPT 43235; principal; 2020-12-30 12:40)
DX: K25.4 Chronic or unspecified gastric ulcer with hemorrhage (principal); R57.8 Other shock; I49.01 Ventricular fibrillation; D62 Acute posthemorrhagic anemia; I50.22 Chronic systolic (congestive) heart failure; I42.8 Other cardiomyopathies; I47.2 Ventricular tachycardia; E87.2 Acidosis; I11.0 Hypertensive heart disease with heart failure; Z20.822 Contact with and (suspected) exposure to COVID-19; I25.10 Atherosclerotic heart disease of native coronary artery without angina pectoris; E11.9 Type 2 diabetes mellitus without complications; E78.5 Hyperlipidemia, unspecified; M54.9 Dorsalgia, unspecified; G89.29 Other chronic pain; Z79.01 Long term (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 of anticoagulants; Z79.84 Long term (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 of oral hypoglycemic drugs; Z79.899 Other long term (current) drug therapy; Z95.810 Presence of automatic (implantable) cardiac defibrillator
CPT/HCPCS: 80048; 80053; 82962; 83605; 84484; 85014; 85018; 85025; 85027; 86850; 86900; 86901; 86920; 87426; 88305; 88342; 93005; 94762; 97110; 97162; 97166; 97530; 97535; 99285; J7030; J7040; P9016; J2405; J3490

== ENCOUNTER → 2021-01-08 15:06 | Outpatient (CLI) | payer MEDICARE, SELFPAY ==
[2020-12-30 12:34] VITALS: BMI 30.3
[2021-01-08 16:33] LABS: Absolute Neutrophil Count 2.9 X10^3/uL (2.0-7.7); Basophil# 0.02 X10^3/uL; Basophil% 0.3 % (0-1); Eosinophil# 0.25 X10^3/uL; Hematocrit 31.7 % (37-47); Hemoglobin 10.2 g/dL (12.0-15.0); Lymphocyte % 43.2 % (19-41); Mean Corp Hgb Conc 32.2 g/dL (32-36); Mean Corpuscular Hgb 29.2 pg (27.0-32.0); Mean Corpuscular Volume 90.8 fL (81-99); Mean Platelet Vol. 10.2 fl (6.2-12.0); Monocyte# 0.42 X10^3/uL; Monocyte% 6.7 % (0-10); NRBC Flagged by Analyzer 0 % (0-5); Neutrophil # 2.85 X10^3/uL (2.7-7.7); Neutrophil % 45.6 % (47-70); Platelet Count 260 K/mm3 (150-450); RBC Distribution Width CV 13.6 % (11.6-14.6); RBC Distribution Width SD 43.6 fl (35.1-43.9); Red Blood Count 3.49 M/mm3 (4.2-5.4); White Blood Count 6.3 K/mm3 (4.4-11.0)
== END ==
PROVIDERS: PCP Family Medicine; Referring Provider Family Medicine; Visit Provider Family Medicine
DX: D50.0 Iron deficiency anemia secondary to blood loss (chronic) (principal)
CPT/HCPCS: 36415; 85025

== ENCOUNTER → 2023-03-03 | Outpatient (CLI) | payer MEDICARE, SELFPAY ==
--- NOTE | 2023-03-03 12:48 | ECHOD_ITS ---
Reason For Study: Pacer Thrombus Procedure This was a 2D Doppler, Color Flow transthoracic echocardiogram. Myocardial strain analysis was performed in this exam to aid in the assessment of cardiac function. The study was technically difficult. Exam performed in department. Left Ventricle Normal LV size. The estimated ejection fraction is 20 %. There is severe global hypokinesis of the left ventricle. Right Ventricle Normal RV size. ICD or pacer leads identified within the right ventricle. No Thrombus noted. Normal systolic function. Atria Normal left atrium. Normal right atrium. ICD or pacer leads identified within the right atrium. Mitral Valve Normal mitral valve. Mild (1+) eccentric mitral valve insufficiency. Tricuspid Valve Normal tricuspid valve. Mild (1+) tricuspid valve insufficiency. Pulmonary artery systolic pressure is 38 mmHg. Aortic Valve Trisinus/trileaflet aortic valve. Pulmonic Valve Normal pulmonic valve. Great Vessels Normal aortic root. The pulmonary artery is normal size. Normal inferior vena cava. Pericardium/Pleural No pericardial effusion. MMode/2D Measurements & Calculations LVIDd: 5.3 cm IVSd: 1.1 cm Ao root diam: 3.0 cm LVIDs: 4.7 cm LVPWd: 1.1 cm LA dimension: 4.5 cm RVDd: 3.3 cm FS: 12.3 % LAV(MOD-bp): 66.0 ml LVAd ap4: 48.6 cm2 SV(MOD-sp4): 62.0 ml LAV(MOD-bp) Indexed: 39.5 ml/m2 LVLd ap4: 8.9 cm LAV(MOD-sp2): 66.0 ml EDV(MOD-sp4): 211.0 ml LAV(MOD-sp4): 62.4 ml EDV(sp4-el): 224.4 ml LVAs ap4: 39.4 cm2 LVLs ap4: 8.5 cm ESV(MOD-sp4): 149.0 ml ESV(sp4-el): 155.3 ml EF(MOD-sp4): 29.4 % EF(sp4-el): 30.8 % SV(sp4-el): 69.0 ml LA A4 area: 20.6 cm2 RA A4 area: 13.4 cm2 Time Measurements MV dec time: 0.13 sec Doppler Measurements & Calculations MV E max grey: 73.7 cm/sec Lat Peak E' Grey: 4.0 cm/sec Med Peak E' Grey: 5.5 cm/sec MV A max grey: 117.2 cm/sec E/E' lat: 18.2 E/E' med: 13.4 MV E/A: 0.63 MV V2 max: 118.3 cm/sec MV P1/2t max grey: 96.9 cm/sec Ao V2 max: 151.9 cm/sec MV max P.6 mmHg MV P1/2t: 45.4 msec Ao max P.3 mmHg MV V2 mean: 57.1 cm/sec Ao V2 mean: 108.3 cm/sec MV mean P.7 mmHg MV dec slope: 624.7 cm/sec2 Ao mean P.3 mmHg MV V2 VTI: 26.2 cm MVA(P1/2t): 4.8 cm2 Ao V2 VTI: 34.9 cm AV (velocity ratio): 0.66 LV V1 max: 103.5 cm/sec PA V2 max: 107.0 cm/sec TR max grey: 283.8 cm/sec LV V1 max P.3 mmHg PA V2 mean: 63.3 cm/sec TR max P.2 mmHg LV V1 mean P.3 mmHg LV V1 mean: 71.0 cm/sec LV V1 VTI: 23.0 cm ECHO/Echo Complete Interpretation Summary Normal LV size. The estimated ejection fraction is 20 %. There is severe global hypokinesis of the left ventricle. ICD or pacer leads identified within the right ventricle. No Thrombus noted Pulmonary artery systolic pressure is 38 mmHg. Ordering Physician: Mukul Lunsford Referring Physician: Maria Teresa Pedroza Performed By: Shiv Alejo RCS
== END | disposition home or self-care (01) ==
LOC: CVS 12:46
PROVIDERS: PCP Family Medicine; Referring Provider Internal Medicine Cardiovascular Disease; Visit Provider Internal Medicine Cardiovascular Disease
DX: I44.7 Left bundle-branch block, unspecified (principal)
CPT/HCPCS: 93306

== ENCOUNTER 2024-02-24 11:58 | Observation (INO) | payer MEDICARE, SELFPAY ==
[2024-02-24] VITALS (23 sets, daily range): BP systolic 130–164; BP diastolic 70–135; PULSE 73–144; RESP 12–22; TEMP 35.7–36.9; O2SAT 94–100; BMI 27.8; BMI 26.4
--- NOTE | 2024-02-24 12:06 | EKG12_ITS ---
Test Reason : Blood Pressure : / mmHG Vent. Rate : 152 BPM Atrial Rate : 000 BPM P-R Int : 000 ms QRS Dur : 176 ms QT Int : 314 ms P-R-T Axes : 000 -57 124 degrees QTc Int : 499 ms Critical Test Result: High HR Atrial fibrillation with rapid ventricular response Left bundle branch block Abnormal ECG Confirmed by BRANDY PUENTES, DONNY ([id number]), makeup editor ALEJANDRO MARTINES ([id number]) on 02/26/2024 9:53:11 AM Referred By: ADELINE Confirmed By:JAYLENE NAVA MD
--- NOTE | 2024-02-24 12:12 | CT_ITS ---
INDICATION: Trauma EXAMINATION: CT CERVICAL SPINE - CT Spine Cervical W/O Contrast Injection TECHNIQUE: Helically acquired images were obtained of the cervical spine. 2D reformatted images were reviewed. The protocol utilizes one or more of the following dose reduction techniques: automated exposure control, adjustment of mA and/or kV according to patient size,and/or use of iterative reconstruction technique. IV Contrast dosage and agent: None. RADIATION DOSAGE (If Supplied By Facility): CTDIvol = ( 18.46 ) mGy, DLP = ( 386.03 ) mGycm COMPARISON: No relevant prior comparison study available FINDINGS: VERTEBRAE: The bones are diffusely demineralized. No fracture or traumatic subluxation. No discrete lytic or blastic abnormality. Normal alignment. Normal craniocervical junction and cervicothoracic junction. DISCS and SPINAL CANAL: There is multilevel degenerative disc disease. No critical stenosis. NECK SOFT TISSUES: There are vascular calcifications. No prevertebral soft tissue swelling. There is no cervical adenopathy. LUNG APICES: Clear. CT/Spine Cervical without Contras IMPRESSION: Multilevel degenerative changes. Electronically Signed: Leticia Sharpe MD at 13:37 EDT ,
--- NOTE | 2024-02-24 12:12 | CT_ITS ---
INDICATION: Trauma EXAMINATION: CT BRAIN - CT Head or Brain W/O Contrast Injection TECHNIQUE: Multiple axial images were obtained of the head without intravenous contrast. The protocol utilizes one or more of the following dose reduction techniques: automated exposure control, adjustment of mA and/or kV according to patient size,and/or use of iterative reconstruction technique. IV Contrast dosage and agent: None. RADIATION DOSAGE (If Supplied By Facility): CTDIvol = ( 44.99 ) mGy, DLP = ( 779.24 ) mGycm COMPARISON: October 22, 2011 FINDINGS: BRAIN PARENCHYMA: No intra- or extra-axial hemorrhage. There are patchy foci of low attenuation within the white matter of the cerebral hemispheres, a nonspecific finding most commonly reflecting small vessel ischemia. No evidence of acute infarct. No intracranial mass or mass effect. There is preservation of the ruelas/white matter interface. Posterior fossa structures are unremarkable. CSF SPACES: Appropriate for age. No hydrocephalus. Basal cisterns are patent. CALVARIUM, SKULL BASE, PARANASAL SINUSES AND MASTOID AIR CELLS: There is a nasal bone deformity. There is subcutaneous soft tissue fullness overlying the right frontal calvarium consistent with a small subcutaneous hematoma. ORBITS: Both globes, extraocular muscles, optic nerves and retrobulbar fat appear unremarkable. ASPECTS Score for Acute Strokes: 10 CT/Brain/Head without Contrast IMPRESSION: Small vessel ischemia. Nasal bone fracture of uncertain chronicity. Electronically Signed: Leticia Sharpe MD at 13:12 EDT ,
--- NOTE | 2024-02-24 12:12 | CT_ITS ---
INDICATION: Trauma EXAMINATION: CT FACIAL BONES - CT Maxillofacial W/O Contrast Injection TECHNIQUE: Helically acquired images were obtained of the facial bones. A radiation dose optimization technique was used for this scan. The protocol utilizes one or more of the following dose reduction techniques: automated exposure control, adjustment of mA and/or kV according to patient size,and/or use of iterative reconstruction technique. IV Contrast dosage and agent: None. RADIATION DOSAGE (If Supplied By Facility): CTDIvol = ( 29.38 ) mGy, DLP = ( 1124.30 ) mGycm COMPARISON: Head CT dated February 24, 2024 FINDINGS: SOFT TISSUES: There is a small subcutaneous hematoma overlying the right frontal calvarium. VISUALIZED PARANASAL SINUSES: Clear. VISUALIZED MASTOID AIR CELLS: Clear. FACIAL BONES, MANDIBLE AND TMJs: There is a nasal bone fracture. No lytic or blastic abnormality. VISUALIZED DENTITION: No periodontal osseous erosion. ORBITAL CONTENTS: Both globes, extraocular muscles and retrobulbar fat appear unremarkable. CT/Sinus/Facial Bone IMPRESSION: Nasal bone fracture of uncertain chronicity. Electronically Signed: Leticia Sharpe MD at 13:28 EDT ,
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
--- NOTE | 2024-02-24 12:17 | RAD_ITS ---
INDICATION: trauma EXAMINATION/TECHNIQUE: X-RAY - LEFT XR Shoulder Min 2 Views 2 VIEWS COMPARISON: Prior study dated: Chest radiograph dated February 04, 2013 FINDINGS: SOFT TISSUES: No soft tissue swelling or gas. No radiopaque foreign body. BONES/JOINTS: There is a comminuted fracture of the left humeral neck extending into the humeral head. There is anterior displacement of the distal humerus. There is inferior subluxation and possible dislocation of the humeral head as well. No sclerotic or destructive changes observed. RAD/Shoulder min 2 Views IMPRESSION: Proximal humeral fracture. Possible inferior shoulder dislocation. Electronically Signed: Leticia Sharpe MD at 13:32 EDT ,
[2024-02-24] MEDS: Metoprolol Tartrate 5 MG/5 ML Vial 10 MG IV (12:21)
[2024-02-24 12:37] LABS: Absolute Neutrophil Count 3.8 X10^3/uL (2.0-7.7); Basophil# 0.05 X10^3/uL; Basophil% 0.5 % (0-1); Eosinophil# 0.23 X10^3/uL; Eosinophils% 2.1 % (0-5); Hematocrit 43.4 % (37-47); Hemoglobin 14.7 g/dL (12.0-15.0); Lymphocyte % 56.1 % (19-41); Mean Corp Hgb Conc 33.9 g/dL (32-36); Mean Corpuscular Hgb 30.1 pg (27.0-32.0); Mean Corpuscular Volume 88.9 fL (81-99); Mean Platelet Vol. 11.6 fl (6.2-12.0); Monocyte# 0.58 X10^3/uL; Monocyte% 5.4 % (0-10); NRBC Flagged by Analyzer 0 % (0-5); Neutrophil # 3.81 X10^3/uL (2.7-7.7); Neutrophil % 35.6 % (47-70); POSITIVE DIFFERENTIAL YES; POSITIVE MORPHOLOGY YES; Platelet Count 248 K/mm3 (150-450); RBC Distribution Width CV 12.6 % (11.6-14.6); RBC Distribution Width SD 41.6 fl (35.1-43.9); Red Blood Count 4.88 M/mm3 (4.2-5.4); White Blood Count 10.7 K/mm3 (4.4-11.0)
[2024-02-24 12:40] LABS: Differential Indicated SCAN CRITERIA MET
[2024-02-24 12:47] LABS: ALB/GLOB Ratio 0.9 RATIO (0.9-2.4); AST(SGOT) 17 U/L (15-37); Alanine Aminotransfer ALT/SGPT 17 U/L (13-56); Albumin, Serum 3.5 g/dL (3.2-5.0); Alkaline Phosphatase 83 U/L (45-117); Anion Gap 12 (5-15); BUN 14 mg/dL (7-18); BUN/Creat Ratio 11.3 RATIO (10-20); Calcium,Total 9.8 mg/dL (8.5-10.1); Chloride 102 mmol/L (98-107); Creatinine, Serum 1.24 mg/dL (0.55-1.02); EST Glomerular Filtration Rate 43 mL/min (>60); Est Glom Filt Rate - Afr Amer 52 mL/min (>60); Estimated Creatinine Clearance 26.35 ml/min; Globulin 3.9 g/dL (2.2-4.2); Glucose 339 mg/dL (74-106); Potassium 3.4 mmol/L (3.5-5.1); Protein, Total 7.4 g/dL (6.4-8.2); Sodium Level 136 mmol/L (136-145)
[2024-02-24 13:08] LABS: Differential Comment SCANNED; Reactive Lymphocyte 1+
--- NOTE | 2024-02-24 13:57 | CT_ITS ---
INDICATION: Trauma EXAMINATION: CT LEFT UPPER EXTREMITY- CT W/O Contrast Injection TECHNIQUE: Multiple axial images were obtained of the left upper 70 without intravenous contrast. The protocol utilizes one or more of the following dose reduction techniques: automated exposure control, adjustment of mA and/or kV according to patient size,and/or use of iterative reconstruction technique. IV Contrast dosage and agent: None. RADIATION DOSAGE (If Supplied By Facility): CTDIvol = ( 44.99 ) mGy, DLP = ( 779.24 ) mGycm COMPARISON: None FINDINGS: The bones are diffusely demineralized. There is an impacted and comminuted fracture of the surgical neck of the humerus. The fracture extends into the medial humeral head. The distal humerus is medially displaced. There is an ill-defined radiolucency within the humeral head. No dislocation is visualized. There are degenerative changes of the acromioclavicular joint. There is partial visualization of a cardiac pacer device in place. There is cardiomegaly. There are coronary artery calcifications. There are peripheral calcifications of the visualized thoracic aorta. CT/Extremity Upper without Contra IMPRESSION: Comminuted proximal humeral fracture, cannot exclude a pathologic fracture. Cardiomegaly. Atherosclerosis. Electronically Signed: Leticia Sharpe MD at 15:28 EDT ,
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
--- NOTE | 2024-02-24 14:06 | ED.RN ---
Called daughter Isela to discuss reason for pt in ER. Pt agreed to have daughter called. Discussed admission vs going home care. Daughter on the way in
[2024-02-24] MEDS: Oxycodone/Apap 5/325 Tablet PO (16:05)
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
[2024-02-24 17:36] LABS: Bedside Glucose 183 mg/dL (74-106)
[2024-02-24] MEDS: Insulin Lispro 100 UNIT/ML INSULN.PEN SC (21:34)
[2024-02-24] MEDS: Acetaminophen 325 MG Tablet 650 MG PO (21:35)
[2024-02-24] MEDS: Carvedilol 25 MG Tablet PO (21:35)
[2024-02-25] VITALS (8 sets, daily range): BP systolic 88–157; BP diastolic 39–100; PULSE 66–81; RESP 18–20; TEMP 36.1–37; O2SAT 94–98
[2024-02-25 00:25] LABS: Bedside Glucose 241 mg/dL (74-106)
[2024-02-25] MEDS: Insulin Lispro 100 UNIT/ML INSULN.PEN SC ×4 (03:04→15:42)
[2024-02-25 03:41] LABS: Bedside Glucose 202 mg/dL (74-106)
[2024-02-25 06:20] LABS: Absolute Lymphocyte Count 2.51 X10^3/uL (0.83-4.51); Absolute Neutrophil Count 4.8 X10^3/uL (2.0-7.7); Basophil# 0.02 X10^3/uL; Basophil% 0.3 % (0-1); Eosinophil# 0.01 X10^3/uL; Eosinophils% 0.1 % (0-5); Hemoglobin 11.4 g/dL (12.0-15.0); Lymphocyte # 2.51 X10^3/ul (0.83-4.51); Lymphocyte % 31.6 % (19-41); Mean Corp Hgb Conc 33.5 g/dL (32-36); Mean Corpuscular Hgb 30.2 pg (27.0-32.0); Mean Corpuscular Volume 89.9 fL (81-99); Mean Platelet Vol. 11.8 fl (6.2-12.0); Monocyte# 0.56 X10^3/uL; NRBC Flagged by Analyzer 0 % (0-5); Neutrophil # 4.84 X10^3/uL (2.7-7.7); Neutrophil % 60.9 % (47-70); Platelet Count 160 K/mm3 (150-450); RBC Distribution Width CV 12.8 % (11.6-14.6); RBC Distribution Width SD 41.5 fl (35.1-43.9); Red Blood Count 3.78 M/mm3 (4.2-5.4)
[2024-02-25] MEDS: Acetaminophen 325 MG Tablet 650 MG PO ×3 (06:23→21:42)
[2024-02-25 06:31] LABS: International Normalized Ratio 1.2; Prothrombin Time (Protime)PT. 15.2 SECONDS (11.7-14.9)
[2024-02-25 06:36] LABS: Bedside Glucose 195 mg/dL (74-106)
[2024-02-25 07:00] LABS: AST(SGOT) 32 U/L (15-37); Alanine Aminotransfer ALT/SGPT 17 U/L (13-56); Albumin, Serum 3.1 g/dL (3.2-5.0); Alkaline Phosphatase 72 U/L (45-117); Anion Gap 9 (5-15); BUN 23 mg/dL (7-18); BUN/Creat Ratio 21.7 RATIO (10-20); Bilirubin, Direct 0.27 mg/dL (0.00-0.30); Calcium,Total 9.7 mg/dL (8.5-10.1); Chloride 101 mmol/L (98-107); Creatinine, Serum 1.06 mg/dL (0.55-1.02); EST Glomerular Filtration Rate 52 mL/min (>60); Est Glom Filt Rate - Afr Amer 63 mL/min (>60); Globulin 3.2 g/dL (2.2-4.2); Glucose 211 mg/dL (74-106); Magnesium 1.6 mg/dL (1.6-2.6); Phosphorus 3.1 mg/dL (2.5-4.9); Potassium 3.3 mmol/L (3.5-5.1); Protein, Total 6.3 g/dL (6.4-8.2); Sodium Level 137 mmol/L (136-145); Thyroid Stim Hormone (TSH) 0.52 uIU/mL (0.358-3.74)
[2024-02-25] MEDS: Carvedilol 25 MG Tablet PO ×2 (08:48→21:42)
[2024-02-25] MEDS: Enoxaparin 30 MG/0.3 ML Syringe SC (08:48)
[2024-02-25] MEDS: Ramipril 5 MG Capsule PO (08:48)
--- NOTE | 2024-02-25 09:36 | PCM.PN.HOSP ---
Subjective Subjective Doing well, no issues overnight. Facial ecchymosis and bruising, pain is controlled Objective Data Objective Data Vital Signs: Vital Signs Temp Pulse Resp BP Pulse Ox O2 Del Method 98.6 F 70 20 H 126/100 H 98 Room Air 02/25/24 08:34 02/25/24 08:39 02/25/24 08:34 02/25/24 08:34 02/25/24 08:34 02/25/24 08:34 Oxygen Delivery Method Room Air Weight: 135 lb Body Mass Index (BMI) 26.4 Intake & Output: Intake and Output for Last 24 Hours 02/24/24 02/25/24 02/26/24 03:59 03:59 03:59 Intake Total 450 / 450 Balance 450 / 450 Lab / Micro Data 02/25/24 05:05 02/25/24 05:05 Labs: Laboratory Results - last 24 hr 02/24/24 12:05: WBC 10.7, RBC 4.88, Hgb 14.7, Hct 43.4, MCV 88.9, MCH 30.1, MCHC 33.9, RDW Std Deviation 41.6, RDW Coeff of Keren 12.6, Plt Count 248, MPV 11.6, Immature Gran % (Auto) 0.300, Neut % (Auto) 35.6 L, Lymph % (Auto) 56.1 H, [place] % (Auto) 5.4, Eos % (Auto) 2.1, Baso % (Auto) 0.5, Absolute Neuts (auto) 3.8, Absolute Lymphs (auto) 6.00 H, Nucleated RBC % 0, Differential Comment SCANNED, Reactive Lymphocytes 1+, Sodium 136, Potassium 3.4 L, Chloride 102, Carbon Dioxide 22.0, Anion Gap 12, BUN 14, Creatinine 1.24 H, Estim Creat Clear Calc 26.35, Est GFR (MDRD) Af Amer 52 L, Est GFR (MDRD) Non-Af 43 L, BUN/Creatinine Ratio 11.3, Glucose 339 H, Calcium 9.8, Total Bilirubin 0.80, AST 17, ALT 17, Alkaline Phosphatase 83, Total Protein 7.4, Albumin 3.5, Globulin 3.9, Albumin/Globulin Ratio 0.9 02/24/24 17:15: POC Glucose 183 H 02/24/24 21:28: POC Glucose 241 H 02/25/24 03:02: POC Glucose 202 H 02/25/24 05:05: WBC 8.0, RBC 3.78 L, Hgb 11.4 L, Hct 34.0 L, MCV 89.9, MCH 30.2, MCHC 33.5, RDW Std Deviation 41.5, RDW Coeff of Keren 12.8, Plt Count 160, MPV 11.8, Immature Gran % (Auto) 0.100, Neut % (Auto) 60.9, Lymph % (Auto) 31.6, [place] % (Auto) 7.0, Eos % (Auto) 0.1, Baso % (Auto) 0.3, Absolute Neuts (auto) 4.8, Absolute Lymphs (auto) 2.51, Nucleated RBC % 0, PT 15.2 H, INR 1.2, Sodium 137, Potassium 3.3 L, Chloride 101, Carbon Dioxide 27.0, Anion Gap 9, BUN 23 H, Creatinine 1.06 H, Estim Creat Clear Calc 30.00, Est GFR (MDRD) Af Amer 63, Est GFR (MDRD) Non-Af 52 L, BUN/Creatinine Ratio 21.7 H, Glucose 211 H, Calcium 9.7, Phosphorus 3.1, Magnesium 1.6, Total Bilirubin 1.10 H, Direct Bilirubin 0.27, AST 32, ALT 17, Alkaline Phosphatase 72, Total Protein 6.3 L, Albumin 3.1 L, Globulin 3.2, Albumin/Globulin Ratio 1.0, TSH 0.52 02/25/24 05:52: POC Glucose 195 H Radiography Diagnostic Testing: Radiology Impression Brain CT 02/24/24 12:12 IMPRESSION: Small vessel ischemia. Nasal bone fracture of uncertain chronicity. Electronically Signed: Leticia Sharpe MD at 13:12 EDT , Cervical Spine CT 02/24/24 12:12 IMPRESSION: Multilevel degenerative changes. Electronically Signed: Leticia Sharpe MD at 13:37 EDT , Facial/Sinus 02/24/24 12:12 IMPRESSION: Nasal bone fracture of uncertain chronicity. Electronically Signed: Leticia Sharpe MD at 13:28 EDT , Shoulder X-Ray 02/24/24 12:17 IMPRESSION: Proximal humeral fracture. Possible inferior shoulder dislocation. Electronically Signed: Leticia Sharpe MD at 13:32 EDT , Upper Extremity CT 02/24/24 13:57 IMPRESSION: Comminuted proximal humeral fracture, cannot exclude a pathologic fracture. Cardiomegaly. Atherosclerosis. Electronically Signed: Leticia Sharpe MD at 15:28 EDT , Physical Exam Narrative General: Alert, Oriented x3, Cooperative, No apparent distress HEENT: Atraumatic, PERRLA, EOMI, Normocephalic, facial bruising Oral: Moist Mucosa Neck: Supple, No JVD Lungs: Diminished, Normal air movement, No rhonchi, No wheeze, No rales Cardiovascular: Regular rate, Regular Rhythm, Normal S1, Normal S2, No murmurs Abdomen: Soft, Non Tender, Non-Distended, No Hepato-splenomegaly Extremities: No edema, Capillary Refill Less than 3 Seconds Skin: No rashes, No breakdown Musculoskeletal: Left upper extremity in a sling mild tenderness to palpation Neurological: No focal neurological deficits, Motor Exam 5/5 strength throughout, Sensory exam intact to light touch and pain Psych/Mental Status: Normal Affect, Appropriate Assessment & Plan Assessment/Plan (1) Traumatic hematoma of forehead: PLAN: Plan 1. Left humeral head fracture from mechanical fall ? Based on CT scan does not appear to be dislocated ? Remain nonweightbearing with her arm in a sling ? Will likely need physical therapy at SNF ? PT/OT ? Case management consult for discharge planning 2. CAD/essential HTN/HLD/defibrillator placement ? Echo on 03/03/2023 with an EF of 20% ? Continue with Coreg and ramipril ? We will monitor make adjustments as necessary ? Blood pressure stable 3. DM2 ? Hold glimepiride ? Continue with sliding scale insulin ? Accu-Cheks ACHS ? We will monitor make adjustments as necessary ? A1c is pending DVT: Cleo Charges/Coding Visit Charges Inpatient E&M: 05804 Subs Hosp L2
[2024-02-25 10:36] LABS: Hemoglobin A1c 6.3 % (3.8-5.6)
--- NOTE | 2024-02-25 10:57 | NURSING ---
AT 914, DR BUSTAMANTE REMOVED PTS O2@ 2L, POX RANGING 92-96% ON THE 2L AND REMAINED IN THE LOW 90S ON RA FOR A BIT. 944, POX WAS IN THE MID 80S, O2@2L REAPPLIED, O2 IN THE MID 90S . DR BUSTAMANTE MADE AWARE
--- NOTE | 2024-02-25 11:27 | PN.ORTHO_ITS ---
Subjective Subjective pad 1 l PROXIMAL humerus fracture. donig well. daughter at the bedside. pain to the left shoulder. RHD. Objective Data Objective Data Vital Signs: Vital Signs Temp Pulse Resp BP Pulse Ox O2 Del Method 98.6 F 70 20 H 126/100 H 98 Room Air 02/25/24 08:34 02/25/24 08:39 02/25/24 08:34 02/25/24 08:34 02/25/24 08:34 02/25/24 08:34 Oxygen Delivery Method Room Air Weight: 135 lb Body Mass Index (BMI) 26.4 Intake & Output: Intake and Output for Last 24 Hours 02/23/24 02/24/24 02/25/24 23:59 23:59 23:59 Intake Total 450 / 450 Balance 450 / 450 Lab / Micro Data 02/25/24 05:05 02/25/24 05:05 Labs: Laboratory Results - last 24 hr 02/24/24 12:05: WBC 10.7, RBC 4.88, Hgb 14.7, Hct 43.4, MCV 88.9, MCH 30.1, MCHC 33.9, RDW Std Deviation 41.6, RDW Coeff of Keren 12.6, Plt Count 248, MPV 11.6, Immature Gran % (Auto) 0.300, Neut % (Auto) 35.6 L, Lymph % (Auto) 56.1 H, [place] % (Auto) 5.4, Eos % (Auto) 2.1, Baso % (Auto) 0.5, Absolute Neuts (auto) 3.8, A bsolute Lymphs (auto) 6.00 H, Nucleated RBC % 0, Differential Comment SCANNED, Reactive Lymphocytes 1+, Sodium 136, Potassium 3.4 L, Chloride 102, Carbon Dioxide 22.0, Anion Gap 12, BUN 14, Creatinine 1.24 H, Estim Creat Clear Calc 26.35, Est GFR (MDRD) Af Amer 52 L, Est GFR (MDRD) Non-Af 43 L, BUN/Creatinine Ratio 11.3, Glucose 339 H, Calcium 9.8, Total Bilirubin 0.80, AST 17, ALT 17, Alkaline Phosphatase 83, Total Protein 7.4, Albumin 3.5, Globulin 3.9, Albumin/Globulin Ratio 0.9 02/24/24 17:15: POC Glucose 183 H 02/24/24 21:28: POC Glucose 241 H 02/25/24 03:02: POC Glucose 202 H 02/25/24 05:05: WBC 8.0, RBC 3.78 L, Hgb 11.4 L, Hct 34.0 L, MCV 89.9, MCH 30.2, MCHC 33.5, RDW Std Deviation 41.5, RDW Coeff of Keren 12.8, Plt Count 160, MPV 11.8, Immature Gran % (Auto) 0.100, Neut % (Auto) 60.9, Lymph % (Auto) 31.6, [place] % (Auto) 7.0, Eos % (Auto) 0.1, Baso % (Auto) 0.3, Absolute Neuts (auto) 4.8, Absolute Lymphs (auto) 2.51, Nucleated RBC % 0, PT 15.2 H, INR 1.2, Sodium 137, Potassium 3.3 L, Chloride 101, Carbon Dioxide 27.0, Anion Gap 9, BUN 23 H, Creatinine 1.06 H, Estim Creat Clear Calc 30.00, Est GFR (MDRD) Af Amer 63, Est GFR (MDRD) Non-Af 52 L, BUN/Creatinine Ratio 21.7 H, Glucose 211 H, Hemoglobin A1c 6.3 H, Calcium 9.7, Phosphorus 3.1, Magnesium 1.6, Total Bilirubin 1.10 H, Direct Bilirubin 0.27, AST 32, ALT 17, Alkaline Phosphatase 72, Total Protein 6.3 L, Albumin 3.1 L, Globulin 3.2, Albumin/Globulin Ratio 1.0, TSH 0.52 02/25/24 05:52: POC Glucose 195 H Radiography Diagnostic Testing: Radiology Impression Brain CT 02/24/24 12:12 IMPRESSION: Small vessel ischemia. Nasal bone fracture of uncertain chronicity. Electronically Signed: Leticia Sharpe MD at 13:12 EDT , Cervical Spine CT 02/24/24 12:12 IMPRESSION: Multilevel degenerative changes. Electronically Signed: Leticia Sharpe MD at 13:37 EDT , Facial/Sinus 02/24/24 12:12 IMPRESSION: Nasal bone fracture of uncertain chronicity. Electronically Signed: Leticia Sharpe MD at 13:28 EDT , Shoulder X-Ray 02/24/24 12:17 IMPRESSION: Proximal humeral fracture. Possible inferior shoulder dislocation. Electronically Signed: Leticia Sharpe MD at 13:32 EDT , Upper Extremity CT 02/24/24 13:57 IMPRESSION: Comminuted proximal humeral fracture, cannot exclude a pathologic fracture. Cardiomegaly. Atherosclerosis. Electronically Signed: Leticia Sharpe MD at 15:28 EDT , valgus alignment, min displacement of shaft vs head, 3 part. no dislocation Physical Exam Const alert, oriented x3 and no apparent distress Constitutional Narrative: L proximal humerus closed, nvi, ax, mru and ain/pin normal motor and sens, swelling to the left shoulder, no pain at elbow or wrist. General Appearance: cooperative and well developed Assessment & Plan Assessment/Plan (1) Fracture of proximal end of left humerus: PLAN: 88 yr F with left prox humerus fracture. would recommend non op, but consideration for outpatient RTSA as well. given frailty and cardiac function, we agreed non op with sling and NWB better option. will follow as outpatient and sign off for now. pending SW and OT for placement.
[2024-02-25 11:37] LABS: Bedside Glucose 170 mg/dL (74-106)
[2024-02-25] MEDS: Potassium Chloride Oral Tablet 20 MEQ 40 MEQ PO (12:36)
[2024-02-25] MEDS: 0.9% Saline Lock 10 ML Syringe IV (15:36)
[2024-02-25] MEDS: 0.9% Normal Saline (1000mL) 1,000 ML 100 ML IV (15:36)
[2024-02-25 16:40] LABS: Bedside Glucose 156 mg/dL (74-106)
[2024-02-25 23:52] LABS: Bedside Glucose 146 mg/dL (74-106)
[2024-02-26] MEDS: Insulin Lispro 100 UNIT/ML INSULN.PEN SC ×3 (02:20→11:20)
[2024-02-26 02:43] LABS: Bedside Glucose 176 mg/dL (74-106)
[2024-02-26 05:38] VITALS: BP 133/77; PULSE 71; RESP 18; TEMP 36.8; O2SAT 95
[2024-02-26] MEDS: 0.9% Saline Lock 10 ML Syringe IV ×2 (05:40→20:58)
[2024-02-26] MEDS: Acetaminophen 325 MG Tablet 650 MG PO ×2 (05:40→15:08)
[2024-02-26 07:20] LABS: Bedside Glucose 167 mg/dL (74-106)
[2024-02-26 07:45] LABS: Anion Gap 6 (5-15); BUN 24 mg/dL (7-18); BUN/Creat Ratio 26.4 RATIO (10-20); Calcium,Total 9.5 mg/dL (8.5-10.1); Chloride 104 mmol/L (98-107); Creatinine, Serum 0.91 mg/dL (0.55-1.02); EST Glomerular Filtration Rate 62 mL/min (>60); Est Glom Filt Rate - Afr Amer 75 mL/min (>60); Estimated Creatinine Clearance 34.94 ml/min; Glucose 193 mg/dL (74-106); Potassium 3.8 mmol/L (3.5-5.1); Sodium Level 136 mmol/L (136-145)
[2024-02-26] MEDS: Carvedilol 25 MG Tablet PO ×2 (08:01→20:58)
[2024-02-26] MEDS: Ramipril 5 MG Capsule PO (08:01)
[2024-02-26] MEDS: Enoxaparin 30 MG/0.3 ML Syringe SC (08:01)
[2024-02-26] MEDS: Menthol/Lanolin/Calamine/Znox 113 GM Tube 1 APPLIC TOPICAL ×2 (08:01→20:57)
[2024-02-26] MEDS: Nystatin Powder 15gm Bottle 1 APPLIC TOPICAL ×2 (08:02→20:57)
[2024-02-26 10:00] VITALS: BP 117/99; PULSE 68; RESP 18; TEMP 36.8; O2SAT 95
--- NOTE | 2024-02-26 10:04 | CASEMGMT ---
Met with patient to complete M[place] form. M[place]ACK form explained to patient who voiced understanding and signed form. Original form placed in pt?s chart and copy provided to patient. Kerri Centeno, Discharge Planning Asst
--- NOTE | 2024-02-26 10:19 | CASEMGMT ---
Discharge Planning A list of?SNF providers including quality and resource use data and consistent with the patient's preferred geographic region, medical needs, and insurance network was created in [facility] Guide.? This list was provided to the SW. Kerri Centeno Discharge Planning Asst.
--- NOTE | 2024-02-26 11:07 | CASEMGMT ---
Social Work- SW completed SDOH; triggered in error. Pt and pt daughter state no concerns or resources needed. Pt has had falls prior to this fall, but has not had any injuries. Pt has tried [facility]; did not care for and cancelled. Pt has no food scarcity or financial concerns. Utilities are included in rent. Daughters provide all transportation. A list of SNF providers including quality and resource use data and consistent with the patient?s preferred geographic region, medical needs, and insurance network were provided from the [facility] Guide. Pt daughters will discuss with pt and advise SW of [facility]. MARCY Yates
[2024-02-26 11:46] LABS: Bedside Glucose 194 mg/dL (74-106)
--- NOTE | 2024-02-26 12:03 | PN.HOSP_ITS ---
Subjective Subjective Doing well, pain is controlled. Family has noticed a little bit more confusion during the hospital versus at home, there is some concern for concussion Objective Data Objective Data Vital Signs: Vital Signs Temp Pulse Resp BP Pulse Ox O2 Del Method 98.2 F 68 18 117/99 H 95 Room Air 02/26/24 10:00 02/26/24 10:00 02/26/24 10:00 02/26/24 10:00 02/26/24 10:00 02/26/24 10:00 Oxygen Delivery Method Room Air Weight: 135 lb Body Mass Index (BMI) 26.4 Intake & Output: Intake and Output for Last 24 Hours 02/25/24 02/26/24 02/27/24 03:59 03:59 03:59 Intake Total 450 / 450 1450 / 1450 Balance 450 / 450 1450 / 1450 Lab / Micro Data 02/25/24 05:05 02/26/24 07:00 Labs: Laboratory Results - last 24 hr 02/25/24 15:41: POC Glucose 156 H 02/25/24 21:41: POC Glucose 146 H 02/26/24 02:18: POC Glucose 176 H 02/26/24 06:56: POC Glucose 167 H 02/26/24 07:00: Sodium 136, Potassium 3.8, Chloride 104, Carbon Dioxide 26.0, Anion Gap 6, BUN 24 H, Creatinine 0.91, Estim Creat Clear Calc 34.94, Est GFR (MDRD) Af Amer 75, Est GFR (MDRD) Non-Af 62, BUN/Creatinine Ratio 26.4 H, G lucose 193 H, Calcium 9.5 02/26/24 11:19: POC Glucose 194 H Physical Exam Narrative General: Alert, Oriented x3, Cooperative, No apparent distress HEENT: Atraumatic, PERRLA, EOMI, Normocephalic, facial bruising Oral: Moist Mucosa Neck: Supple, No JVD Lungs: Diminished, Normal air movement, No rhonchi, No wheeze, No rales Cardiovascular: Regular rate, Regular Rhythm, Normal S1, Normal S2, No murmurs Abdomen: Soft, Non Tender, Non-Distended, No Hepato-splenomegaly Extremities: No edema, Capillary Refill Less than 3 Seconds Skin: No rashes, No breakdown Musculoskeletal: Left upper extremity in a sling mild tenderness to palpation Neurological: No focal neurological deficits, Motor Exam 5/5 strength throughout, Sensory exam intact to light touch and pain Psych/Mental Status: Normal Affect, Appropriate Assessment & Plan Assessment/Plan (1) Traumatic hematoma of forehead: PLAN: Plan 1. Left humeral head fracture from mechanical fall ? Based on CT scan does not appear to be dislocated ? Remain nonweightbearing with her arm in a sling, she will need to follow-up with orthopedic surgery as an outpatient ? Will likely need physical therapy at [facility], awaiting pre-CERT ? PT/OT ? Case management consult for discharge planning 2. CAD/essential HTN/HLD/defibrillator placement ? Echo on 03/03/2023 with an EF of 20% ? Continue with Coreg and ramipril ? We will monitor make adjustments as necessary ? Blood pressure stable 3. DM2 ? Hold glimepiride ? Continue with sliding scale insulin ? Accu-Cheks ACHS ? We will monitor make adjustments as necessary ? A1c is pending DVT: Cleo Charges/Coding Visit Charges Inpatient E&M: 91758 Subs Hosp L2
--- NOTE | 2024-02-26 12:21 | CASEMGMT ---
Social Work- SW met with both of pt daughters, Isela and Chau, to discuss facilities for referrals. [facility] is [facility]. 2nd choice is [facility]. 3rd choice is [facility]. SW made referral to TCU for pt & updated DCA. MARCY Yates
[2024-02-26 14:12] VITALS: BP 124/93; PULSE 69; RESP 18; TEMP 36.4; O2SAT 96
[2024-02-26 14:55] LABS: Absolute Lymphocyte Count 2.07 X10^3/uL (0.83-4.51); Basophil# 0.02 X10^3/uL; Basophil% 0.3 % (0-1); Hematocrit 29.1 % (37-47); Hemoglobin 9.8 g/dL (12.0-15.0); Lymphocyte # 2.07 X10^3/ul (0.83-4.51); Lymphocyte % 30.6 % (19-41); Mean Corp Hgb Conc 33.7 g/dL (32-36); Mean Corpuscular Hgb 30.2 pg (27.0-32.0); Mean Corpuscular Volume 89.5 fL (81-99); Mean Platelet Vol. 12.2 fl (6.2-12.0); Monocyte# 0.48 X10^3/uL; Monocyte% 7.1 % (0-10); NRBC Flagged by Analyzer 0 % (0-5); Neutrophil # 3.98 X10^3/uL (2.7-7.7); Neutrophil % 58.7 % (47-70); Platelet Count 130 K/mm3 (150-450); RBC Distribution Width CV 12.9 % (11.6-14.6); RBC Distribution Width SD 42.1 fl (35.1-43.9); Red Blood Count 3.25 M/mm3 (4.2-5.4); White Blood Count 6.8 K/mm3 (4.4-11.0)
--- NOTE | 2024-02-26 15:02 | CASEMGMT ---
Addendum entered by Sherley Carson 02/26/24 15:17: Pt cannot self-administer medication and family is accepting of this and would like to move ahead with TCU referral. THEODORE advised Ashwini. MARCY Yates Original Note: Social Work- THEODORE met with pt daughters to advise that TCU will accept if pt/family is okay with Trimo Obregon harmeet, PRN being held while at TCU. Pt daughters state that pt administers jelly herself and asked if that would be allowable. THEODORE directed this question to Ashwini and will update family. MARCY Yates
[2024-02-26 20:52] VITALS: BP 162/87; PULSE 77; RESP 16; TEMP 36.5; O2SAT 98
[2024-02-26 22:37] LABS: Bedside Glucose 138 mg/dL (74-106)
[2024-02-27 00:20] LABS: Bedside Glucose 143 mg/dL (74-106)
[2024-02-27 02:52] VITALS: BP 158/65; PULSE 84; RESP 18; TEMP 36.8; O2SAT 94
[2024-02-27] MEDS: Insulin Lispro 100 UNIT/ML INSULN.PEN SC ×3 (02:55→11:26)
[2024-02-27] MEDS: Acetaminophen 325 MG Tablet 650 MG PO ×2 (02:56→11:29)
[2024-02-27 03:17] LABS: Bedside Glucose 181 mg/dL (74-106)
[2024-02-27 07:11] LABS: Bedside Glucose 170 mg/dL (74-106)
[2024-02-27 08:37] VITALS: BP 103/85; PULSE 67; RESP 18; TEMP 36.2; O2SAT 95
[2024-02-27] MEDS: Carvedilol 25 MG Tablet PO (08:43)
[2024-02-27] MEDS: Enoxaparin 30 MG/0.3 ML Syringe SC (08:43)
[2024-02-27] MEDS: Ramipril 5 MG Capsule PO (08:43)
[2024-02-27] MEDS: Menthol/Lanolin/Calamine/Znox 113 GM Tube 1 APPLIC TOPICAL (08:44)
[2024-02-27] MEDS: Nystatin Powder 15gm Bottle 1 APPLIC TOPICAL (08:44)
--- NOTE | 2024-02-27 09:44 | PN.HOSP_ITS ---
Subjective Subjective Doing well, feels little bit better today. Objective Data Objective Data Vital Signs: Vital Signs Temp Pulse Resp BP Pulse Ox O2 Del Method 97.2 F L 67 18 103/85 H 95 Room Air 02/27/24 08:37 02/27/24 08:37 02/27/24 08:37 02/27/24 08:37 02/27/24 08:37 02/27/24 08:45 Oxygen Delivery Method Room Air Weight: 135 lb Body Mass Index (BMI) 26.4 Intake & Output: Intake and Output for Last 24 Hours 02/26/24 02/27/24 02/28/24 03:59 03:59 03:59 Intake Total 1450 / 1450 200 / 200 100 / 100 Balance 1450 / 1450 200 / 200 100 / 100 Lab / Micro Data 02/26/24 07:00 02/26/24 07:00 Labs: Laboratory Results - last 24 hr 02/26/24 07:00: WBC 6.8, RBC 3.25 L, Hgb 9.8 L, Hct 29.1 L, MCV 89.5, MCH 30.2, MCHC 33.7, RDW Std Deviation 42.1, RDW Coeff of Keren 12.9, Plt Count 130 L, MPV 12.2 H, Immature Gran % (Auto) 0.300, Neut % (Auto) 58.7, Lymph % (Auto) 30.6, Bledsoe % (Auto) 7.1, Eos % (Auto) 3.0, Baso % (Auto) 0.3, Absolute Neuts (auto) 4.0, Absolute Lymphs (auto) 2.07, Nucleated RBC % 0 02/26/24 11:19: POC Glucose 194 H 02/26/24 16:21: POC Glucose 143 H 02/26/24 20:56: POC Glucose 138 H 02/27/24 02:54: POC Glucose 181 H 02/27/24 06:52: POC Glucose 170 H Physical Exam Narrative General: Alert, Oriented x3, Cooperative, No apparent distress HEENT: Atraumatic, PERRLA, EOMI, Normocephalic, facial bruising Oral: Moist Mucosa Neck: Supple, No JVD Lungs: Diminished, Normal air movement, No rhonchi, No wheeze, No rales Cardiovascular: Regular rate, Regular Rhythm, Normal S1, Normal S2, No murmurs Abdomen: Soft, Non Tender, Non-Distended, No Hepato-splenomegaly Extremities: No edema, Capillary Refill Less than 3 Seconds Skin: No rashes, No breakdown Musculoskeletal: Left upper extremity in a sling mild tenderness to palpation Neurological: No focal neurological deficits, Motor Exam 5/5 strength throughout, Sensory exam intact to light touch and pain Psych/Mental Status: Normal Affect, Appropriate Assessment & Plan Assessment/Plan (1) Traumatic hematoma of forehead: PLAN: Plan 1. Left humeral head fracture from mechanical fall ? Based on CT scan does not appear to be dislocated ? Remain nonweightbearing with her arm in a sling, she will need to follow-up with orthopedic surgery as an outpatient ? Will likely need physical therapy at [facility], awaiting pre-CERT ? PT/OT ? Case management consult for discharge planning 2. CAD/essential HTN/HLD/defibrillator placement ? Echo on 03/03/2023 with an EF of 20% ? Continue with Coreg and ramipril ? We will monitor make adjustments as necessary ? Blood pressure stable 3. DM2 ? Hold glimepiride ? Continue with sliding scale insulin ? Accu-Cheks ACHS ? We will monitor make adjustments as necessary ? A1c is pending DVT: Cleo Charges/Coding Visit Charges Inpatient E&M: 72100 Subs Hosp L2
--- NOTE | 2024-02-27 09:52 | CASEMGMT ---
Social Work- SW advised pt and pt daughter, Chau, that precert has been obtained. Plan: MARCY Titus
--- NOTE | 2024-02-27 11:23 | PCM.TXEXTCAR ---
Diet Diet Order/Speech Therapy: 02/24/24 16:51 Diet: Regular - General Food consistency:: Regular Liquid Consistency:: Regular/Thin Is pt able to select menu?: Yes Routine Orders/Code Status Routine Lab Work: CBC and BMP Code Status: Full Code Therapies Weight Bearing: Non weight bearing Extremity Affected:: Left Upper Physical Therapy: Eval and Treat Occupational Therapy: Eval and Treat Problem/Diagnosis (1) Traumatic hematoma of forehead: Status: Acute Code(s): S00.83XA - Contusion of other part of head, initial encounter Plan 1. Left humeral head fracture from mechanical fall ? Based on CT scan does not appear to be dislocated ? Remain nonweightbearing with her arm in a sling, she will need to follow-up with orthopedic surgery as an outpatient ? Will likely need physical therapy at [facility], awaiting pre-CERT ? PT/OT ? Case management consult for discharge planning 2. CAD/essential HTN/HLD/defibrillator placement ? Echo on 03/03/2023 with an EF of 20% ? Continue with Coreg and ramipril ? We will monitor make adjustments as necessary ? Blood pressure stable 3. DM2 ? Hold glimepiride ? Continue with sliding scale insulin ? Accu-Cheks ACHS ? We will monitor make adjustments as necessary ? A1c is pending DVT: Lovenox Allergies/Procedures Done in Hospital Allergies No Known Allergies Allergy (Verified 02/24/24 12:06) Procedures: None Type of Care/Length of Stay Estimated LOS: Convalescent Care Less Than 30 days Type of Care Needed: Skilled Rehab Potential: Good Prognosis: Good Additional Orders/Day of Discharge Day of Discharge: 02/27/24 Discharge Plan Admission Admit Date/Time: 02/24/24 16:06 Attending Provider: Laureano Ross Primary Care Provider: Maria Teresa Pedroza Consulting Providers: Kristian Whitlock; Aide Bourgeois Discharge Orders/Prescriptions Prescriptions: Continued glimepiride 1 mg tablet 1 mg PO DAILY muaufuhb-zvk-rvrm-FA-vit K-lut 8 mg iron-400 mcg-50 mcg tablet 1 tab PO DAILY Trimo-Obregon Jelly 0.025-0.01 % gel 1 ea vaginal PRN PRN (Reason: IRRITATION) carvedilol 25 mg tablet 25 mg PO BID Qty: 180 3RF ramipril 5 mg capsule 5 mg PO DAILY Qty: 90 3RF Referrals / Follow Up: Maria Teresa Pedroza DO [Primary Care Provider] - Kristian Whitlock MD [Med Staff - Active Staff] - Within 1 Month Disposition Disposition (needs filled in before D/C Order can be placed): Group Home Facility
--- NOTE | 2024-02-27 11:36 | PHA.DC.MR.R ---
Pharmacy MS Med Reconciliation Pharmacy Service has performed discharge medication reconciliation for this patient. The patient's discharge medication list was reviewed for discrepancies and discrepancies were resolved. Medications at Discharge Home Medications carvedilol 25 mg tablet 25 mg PO BID heart/bp #180 tabs 01/16/23 ramipril 5 mg capsule 5 mg PO DAILY blood pressure #90 caps 03/23/23 glimepiride 1 mg tablet 1 mg PO DAILY 02/19/24 ddttpqry-vjzv-rcir 8 mg-folic 400 mcg-K 50 mcg-lutein 300 mcg tablet 1 tab PO DAILY supplement 02/19/24 oxyquinoline 0.025 %-sodium lauryl sulfate 0.01 % vaginal gel (Trimo-Obregon Jelly) 1 ea vaginal PRN PRN IRRITATION 02/24/24
[2024-02-27 11:49] LABS: Bedside Glucose 222 mg/dL (74-106)
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
[2024-02-27 13:41] VITALS: BP 111/53; PULSE 63; RESP 18; TEMP 36.6; O2SAT 97
--- NOTE | 2024-02-27 13:50 | NURSING ---
Report called to Angy in TCU pt will be going to room 1.
--- NOTE | 2024-02-27 14:03 | CASEMGMT ---
Social Work- Pt is medically ready to d/c. SW sent d/c information to TCU and advised bedside nurse and pt of d/c. MARCY Yates
== END 2024-02-27 14:08 | disposition skilled nursing facility (03) ==
LOC: ED 16:17 → MS3 16:28
PROVIDERS: Admitting Provider Internal Medicine; Emergency Provider Emergency Medicine; PCP Family Medicine; Visit Provider Family Medicine
DX: S42.295A Other nondisplaced fracture of upper end of left humerus, initial encounter for closed fracture (principal); I11.0 Hypertensive heart disease with heart failure; I50.22 Chronic systolic (congestive) heart failure; I48.91 Unspecified atrial fibrillation; I42.8 Other cardiomyopathies; E11.9 Type 2 diabetes mellitus without complications; Z79.84 Long term (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 of oral hypoglycemic drugs; S05.11XA Contusion of eyeball and orbital tissues, right eye, initial encounter; I25.10 Atherosclerotic heart disease of native coronary artery without angina pectoris; Z60.2 Problems related to living alone; I44.7 Left bundle-branch block, unspecified; E78.5 Hyperlipidemia, unspecified; Z79.01 Long term (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 of anticoagulants; Z79.899 Other long term (current) drug therapy; Y93.01 Activity, walking, marching and hiking; S02.2XXA Fracture of nasal bones, initial encounter for closed fracture; W19.XXXA Unspecified fall, initial encounter; Y92.510 Bank as the place of occurrence of the external cause; S00.83XA Contusion of other part of head, initial encounter; Z95.810 Presence of automatic (implantable) cardiac defibrillator
CPT/HCPCS: 36415; 70450; 70486; 72125; 73030; 73200; 80048; 80053; 82248; 82962; 83036; 83735; 84100; 84443; 85025; 85610; 93005; 96361; 96372; 96374; 97110; 97162; 97166; 97530; 97535; 99221; 99285; J7030; A4216; G0378

== ENCOUNTER 2024-02-27 14:20 | Inpatient (IN) | payer MEDICARE, SELFPAY ==
[2024-02-27 14:25] VITALS: BMI 26.8
[2024-02-27 14:30] VITALS: BP 151/62; PULSE 69; RESP 16; TEMP 37.1; O2SAT 95
[2024-02-27 14:54] VITALS: BMI 26.9
[2024-02-27] MEDS: Glucerna Shake 120 ML LIQUID PO (17:44)
--- NOTE | 2024-02-27 20:42 | HP.PCM_ITS ---
HPI - General General Date of Admission: 02/27/24 Date of Service: 02/27/24 Chief Complaint: Here for rehabilitation. HPI Narrative 02/24/2024 NICOLAS JACOBSON, is a 88 Female who presents to [facility] ED with fall. Fell on face, no LOC, left shoulder pain. Swelling of nose, right eye bruising. EKG atrial fibrillation with RVR, LBBB. CT head showed forehead hematoma. CT cervical spine negative fracture, negative dislocation. CT facial bones, nasal fracture, probably acute. X-ray left shoulder comminuted left proximal humerus fracture. CT left shoulder negative for dislocation. 02/24/[address] [facility]. Dr. Whitlock recommended left upper extremity sling, left proximal humerus fracture. Consider left reverse total shoulder arthroplasty as outpatient. 02/24/2024 Tylenol, Oxycodone, left proximal humerus fracture. PT/OT for discharge planning. Lovenox for DVT prophylaxis. 02/25/2024 Doing well, pain controlled. NWB LUE, LUE sling, for left proximal humerus fracture. PT/OT for discharge planning. 02/25/2024 Doing well, left shoulder pain, right hand dominant. Dr. Whitlock recommended non-operative management, NWB, LUE for left proximal humerus fracture. 02/26/2024 More confused, concern for concussion. PT/OT SNF. Pre-CERT SNF. 02/27/2024 Admit to TCU with debility, here for rehabilitation, strengthening, prior to discharge home alone. [facility] Medical History (Updated 02/27/24 @ 20:[address] Patrick Ellis MD) Diabetes Atrial fibrillation Congestive heart failure (CHF) DVT (deep venous thrombosis) Pacemaker Proximal humerus fracture Hemorrhagic shock Nonischemic cardiomyopathy Chronic systolic (congestive) heart failure Essential (primary) hypertension Secondary pulmonary 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, implant or graft Ventricular fibrillation Atherosclerotic heart disease of [place] coronary artery without angina pectoris Left bundle-branch block Ventricular tachycardia Cystocele with 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 DM2 (diabetes mellitus, type 2) Dyslipidemia Home Medications ?Medication ?Instructions ?Recorded ?Last Taken ?Type carvedilol 25 mg tablet 25 mg PO BID heart/bp #180 tabs 01/16/23 02/27/24 Rx ramipril 5 mg capsule 5 mg PO DAILY blood pressure #90 03/23/23 02/27/24 Rx caps glimepiride 1 mg tablet 1 mg PO DAILY blood sugar 02/19/24 02/23/24 History dobpapct-pbbi-yydk 8 mg-folic 400 1 tab PO DAILY supplement 02/19/24 02/23/24 History mcg-K 50 mcg-lutein 300 mcg tablet oxyquinoline 0.025 %-sodium lauryl 1 ea vaginal PRN PRN IRRITATION 02/24/24 Unknown History sulfate 0.01 % vaginal gel (Trimo-Obregon Jelly) Allergy/AdvReac Type Severity Reaction Status Date / Time No Known Allergies Allergy Verified 02/24/24 12:06 Family History Mother CAD (coronary artery disease) CHF (congestive heart failure) Father Diabetes Surgical History History of left heart catheterization (12/17/12) History of implantable cardiac defibrillator (ICD) (01/31/13) Cataract H/O: hysterectomy H/O tubal ligation History of hip replacement Social History (Updated 02/27/24 @ 20:[address] Patrick Ellis MD) household members: none Smoking Status: Never smoker alcohol intake: never substance use type: does not use caffeine: Yes Type: coffee Number of servings: 2 what type of physical activity do you participate in: none seatbelt use: always do you feel safe at home: Yes ROS Constitutional Constitutional: Reports fatigue and weakness Vital Signs Vital Signs Vital Signs: 02/27/24 14:25 02/27/24 14:30 Temperature 98.7 F Temperature Source Temporal Pulse Rate 69 Pulse Rhythm Irregular Pulse Strength Normal (2+) Respiratory Rate 16 Respiratory Effort Normal Non-Labored Respiratory Depth Normal Respiratory Pattern Normal Blood Pressure 151/62 H Blood Pressure Mean 91 Blood Pressure Source Monitor Blood Pressure Position Semi-Fowlers Blood Pressure Location Right Arm Pulse Ox 95 Oxygen Delivery Method Room Air Room Air Weight Weight: 62.369 kg Body Mass Index (BMI) 26.9 Physical Exam Const alert General Appearance: cooperative HEENT normocephalic HEENT Narrative: Bruising of face. Eyes PERRL and EOMs intact bilaterally Neck supple, no JVD and no carotid bruits Resp normal respiratory effort, normal air movement and clear to auscultation bilaterally Cardio regular rate and regular rhythm GI normal to inspection, nondistended, normoactive bowel sounds, non-tender and non-distended Extremity normal capillary refill Extremity Narrative: LUE sling. General Extremity: Negative for edema Skin no rashes or lesions noted General Skin Exam: no breakdown Psych affect normal Appearance: appropriate Assessment & Plan Assessment/Plan (1) Debility: (2) Fracture of proximal end of left humerus: (3) Nasal bone fracture: (4) Atrial fibrillation with rapid ventricular response: (5) Concussion: (6) Diabetes: (7) Macular degeneration: (8) Coronary artery disease: (9) Chronic HFrEF (heart failure with reduced ejection fraction): PLAN: Plan 88 year old female with below past medical history hospitalized for fall, left proximal humerus fracture, treated non-operatively, complicated by concussion, atrial fibrillation with rvr, admitted to TCU with debility, here for rehabilitation, strengthening, prior to discharge home alone. * Debility - PT/OT. * Pain - Tylenol 1000mg q6 prn pain (1-10). * Bowel - senna/colace 1 tablet bid, Magnesium citrate 300ml daily prn. * Adult immunization - Administer pneumonia vaccine, covid vaccine, flu vaccine as appropriate. * DVT prophylaxis - Hold, anemia. * Concussion - Monitor, consider ST. * Atrial fibrillation - Coreg 25mg bid, no anticoagulation due to risk of falls. * Coronary artery disease - Coreg 25mg bid, Ramipril 5mg daily. * Chronic HFrEF - Coreg 25mg bid, Ramipril 5mg daily. * Diabetes Mellitus II - Glimepiride 1mg daily. * Nutrition - Glucerna Shake 120ml po tidcm. * Skin irritation - Calmoseptine topical bid. * Nutrition - MVI 1 tablet daily. * Tinea Corporis - Nystatin powder topical bid.
[2024-02-27] MEDS: Menthol/Lanolin/Calamine/Znox 113 GM Tube 1 APPLIC TOPICAL (21:11)
[2024-02-27] MEDS: Nystatin Powder 15gm Bottle 1 APPLIC TOPICAL (21:12)
[2024-02-27] MEDS: Senna/Docusate Sodium 1 Tablet PO (21:14)
[2024-02-27] MEDS: Carvedilol 25 MG Tablet PO (21:15)
[2024-02-27 21:19] VITALS: BP 172/77; PULSE 75; RESP 16
[2024-02-28 05:57] LABS: Absolute Lymphocyte Count 1.94 X10^3/uL (0.83-4.51); Absolute Neutrophil Count 3.5 X10^3/uL (2.0-7.7); Basophil# 0.02 X10^3/uL; Basophil% 0.3 % (0-1); Eosinophil# 0.07 X10^3/uL; Eosinophils% 1.2 % (0-5); Hematocrit 30.2 % (37-47); Hemoglobin 10.1 g/dL (12.0-15.0); Lymphocyte # 1.94 X10^3/ul (0.83-4.51); Lymphocyte % 32.6 % (19-41); Mean Corp Hgb Conc 33.4 g/dL (32-36); Mean Corpuscular Hgb 30.1 pg (27.0-32.0); Mean Corpuscular Volume 89.9 fL (81-99); Mean Platelet Vol. 11.2 fl (6.2-12.0); Monocyte# 0.41 X10^3/uL; Monocyte% 6.9 % (0-10); NRBC Flagged by Analyzer 0 % (0-5); Neutrophil # 3.51 X10^3/uL (2.7-7.7); Platelet Count 165 K/mm3 (150-450); RBC Distribution Width CV 12.9 % (11.6-14.6); RBC Distribution Width SD 41.6 fl (35.1-43.9); Red Blood Count 3.36 M/mm3 (4.2-5.4)
[2024-02-28 06:10] LABS: Anion Gap 6 (5-15); BUN 16 mg/dL (7-18); BUN/Creat Ratio 20.2 RATIO (10-20); Calcium,Total 9.9 mg/dL (8.5-10.1); Chloride 106 mmol/L (98-107); Creatinine, Serum 0.79 mg/dL (0.55-1.02); EST Glomerular Filtration Rate 73 mL/min (>60); Est Glom Filt Rate - Afr Amer 88 mL/min (>60); Estimated Creatinine Clearance 40.09 ml/min; Glucose 221 mg/dL (74-106); Potassium 3.6 mmol/L (3.5-5.1); Sodium Level 139 mmol/L (136-145)
[2024-02-28 06:29] LABS: Bedside Glucose 195 mg/dL (74-106)
[2024-02-28 09:00] VITALS: BP 160/68; PULSE 67; RESP 18; TEMP 36.6; O2SAT 95
[2024-02-28] MEDS: Glucerna Shake 120 ML LIQUID PO ×3 (09:03→18:01)
[2024-02-28] MEDS: Glimepiride 1 MG Tablet PO (09:04)
[2024-02-28] MEDS: Multivitamins,Ther W-Minerals Tablet 1 TABLET PO (09:04)
[2024-02-28] MEDS: Carvedilol 25 MG Tablet PO ×2 (09:04→20:43)
[2024-02-28] MEDS: Ramipril 5 MG Capsule PO (09:04)
[2024-02-28] MEDS: Menthol/Lanolin/Calamine/Znox 113 GM Tube 1 APPLIC TOPICAL ×2 (09:04→20:38)
[2024-02-28] MEDS: 0.9% Saline Lock 10 ML Syringe IV ×2 (09:05→20:40)
[2024-02-28] MEDS: Nystatin Powder 15gm Bottle 1 APPLIC TOPICAL ×2 (09:05→20:39)
[2024-02-28] MEDS: Senna/Docusate Sodium 1 Tablet PO ×2 (09:11→20:43)
[2024-02-28] MEDS: Tuberculin,Purif.prot.deriv. 50 TU/ML Vial 0.1 ML ID (09:13)
--- NOTE | 2024-02-28 12:05 | PCM.PN.DRR ---
Documented by User: Olena Saleh 02/28/24 12:23 TCU RX Drug Regimen Review Subjective/Objective Subjective/Objective: Subjective: TCU Admission. 88 YOF presented to the ER with a fall. Hospitalized for fall, left proximal humerus fracture, treated non-operatively, complicated by concussion, atrial fibrillation with rvr. Admitted to TCU with debility for strengthening and rehabilitation. Objective: Allergies No Known Allergies Allergy (Verified 02/24/24 12:06) Current Medications Generic Name Dose Route Start Last Admin Trade Name Freq PRN Reason Stop Dose Admin Acetaminophen 1,000 mg 02/27/24 20:57 Acetaminophen 500 Mg Tablet PO Q6H PRN PRN Pain Score 1-10 Calamine/Phenol 1 applic 02/27/24 22:00 02/28/24 09:04 Menthol/Lanolin/Calamine/Znox 113 Gm Tube TOPICAL 1 applic BID TOM Administration Protocol Carvedilol 25 mg 02/27/24 22:00 02/28/24 09:04 Carvedilol 25 Mg Tablet PO 25 mg BID TOM Administration Protocol Glimepiride 1 mg 02/28/24 08:00 02/28/24 09:04 Glimepiride 1 Mg Tablet PO 1 mg DAILYCM TOM Administration Magnesium Citrate 300 ml 02/27/24 20:57 Magnesium Citrate 300 Ml PO DAILY PRN Constipation Multivitamins/Minerals 1 tablet 02/28/24 08:00 02/28/24 09:04 Multivitamins,Ther W-Minerals Tablet PO 1 tablet DAILYCM TOM Administration Nutritional Formula (Lactose Free) 120 ml 02/27/24 17:45 02/28/24 09:03 Glucerna Shake 120 Ml Liquid PO 120 ml TIDCM TOM Administration Nystatin 1 applic 02/27/24 22:00 02/28/24 09:05 Nystatin Powder 15gm Bottle TOPICAL 1 applic BID TOM Administration Protocol Ramipril 5 mg 02/28/24 10:00 02/28/24 09:04 Ramipril 5 Mg Capsule PO 5 mg DAILY TOM Administration Protocol Senna/Docusate Sodium 1 tablet 02/27/24 22:00 02/28/24 09:11 Senna/Docusate Sodium 1 Tablet PO 1 tablet BID TOM Administration Sodium Chloride 10 - 40 ml 02/27/24 14:38 02/28/24 09:05 0.9% Saline Lock 10 Ml Syringe IV 10 ml UD PRN Administration SALINE FLUSH Tuberculin PPD 0.1 ml 03/06/24 10:00 Tuberculin,Purif.Prot.Deriv. 50 Tu/Ml Vial ID 03/06/24 10:01 X1 ONE Problem List Chronic HFrEF (heart failure with reduced ejection fraction) (Chronic) Coronary artery disease (Acute) Macular degeneration (Acute) Diabetes (Acute) Concussion (Acute) Debility (Acute) Atrial fibrillation with rapid ventricular response (Acute) Fracture of proximal end of left humerus (Acute) Nasal bone fracture (Acute) Vital Signs Temp Pulse Resp BP Pulse Ox O2 Del Method 97.8 F 67 18 160/68 H 95 Room Air 02/28/24 09:00 02/28/24 09:00 02/28/24 09:00 02/28/24 09:00 02/28/24 09:00 02/28/24 09:00 Oxygen Delivery Method Room Air Weight: 62.369 kg Body Mass Index (BMI) 26.9 Sodium 139 mmol/L (136-145) 02/28/24 05:13 Potassium 3.6 mmol/L (3.5-5.1) 02/28/24 05:13 Chloride 106 mmol/L (98-107) 02/28/24 05:13 Carbon Dioxide 27.0 mmol/L (21.0-32.0) 02/28/24 05:13 Anion Gap 6 (5-15) 02/28/24 05:13 BUN 16 mg/dL (7-18) 02/28/24 05:13 Creatinine 0.79 mg/dL (0.55-1.02) 02/28/24 05:13 Est GFR (MDRD) Af Amer 88 mL/min (>60) 02/28/24 05:13 Est GFR (MDRD) Non-Af 73 mL/min (>60) 02/28/24 05:13 BUN/Creatinine Ratio 20.2 RATIO (10-20) H 02/28/24 05:13 Glucose 221 mg/dL (74-106) H 02/28/24 05:13 Assessment/Plan: 1. Pain: acetaminophen 1000mg PO Q6H PRN pain 1-10. Resident has not had any doses. Please continue to monitor for increased pain and PRN usage. 2. Bowel: senna/docusate 1T PO BID and magnesium citrate 300mL PO daily PRN constipation. Resident has not had any PRN doses. Please continue to monitor for constipation/diarrhea, stool discoloration and PRN usage. Last documented bowel movement 02/27/24. 3. Atrial fibrillation/CAD/Chronic HFrEF: carvedilol 25mg PO BID and ramipril 5 mg PO daily. Please continue to monitor HR (last 67), BP (160/68), and for s/s of dizziness, cough, renal function, potassium (last 3.6mmol/L) and fatigue. Per physician note, no anticoagulation due to risk of falls. 4. Diabetes Mellitus II: glimepiride 1mg PO daily. Please continue to monitor blood sugar (195mg/dL on 02/26), hemoglobin A1c (last 6.3% 02/25/24), for s/s of hypoglycemia (BEERs) or secondary medication failure. Please consider adding a sliding scale insulin or increasing dose to 2 mg if blood glucose remains in the 200's. Thanks. 5. Skin irritation/ tinea corporis: Calmoseptine topically BID, nystatin powder topically BID. Please monitor for skin irritation, redness, worsening fungal infection, and ulcer formation. 6. Nutrition: multivitamin with minerals 1 tablet PO daily. Please continue to monitor. Assessment/Plan for indications treated with psychotropic medications: None Medical chart and medication regimen reviewed. The following medication irregularities or issues were identified: 1. Glimepiride 1mg PO daily. Please consider adding a sliding scale insulin or increasing dose to 2 mg if blood glucose remains in the 200's. Last blood sugars are 195mg/dL, 220 mg/dL, 170mg/dL. Thanks. Date Date of Note:: 02/28/24 Documented by User: Dr. Patrick Ellis MD 02/28/24 12:27 TCU RX Drug Regimen Review Provider Comments Provider responsibility Provider Comments to Recommendations by Pharmacy: Agree
[2024-02-28 20:00] VITALS: PULSE 80; O2SAT 91
[2024-02-28 20:40] VITALS: BP 156/66; PULSE 77
[2024-02-29 04:34] VITALS: PULSE 72; O2SAT 93
[2024-02-29 06:35] LABS: Bedside Glucose 161 mg/dL (74-106)
[2024-02-29] MEDS: Multivitamins,Ther W-Minerals Tablet 1 TABLET PO (09:35)
[2024-02-29] MEDS: Menthol/Lanolin/Calamine/Znox 113 GM Tube 1 APPLIC TOPICAL ×2 (09:35→20:46)
[2024-02-29] MEDS: Glimepiride 2 MG Tablet PO (09:35)
[2024-02-29] MEDS: Senna/Docusate Sodium 1 Tablet PO ×2 (09:36→20:48)
[2024-02-29] MEDS: Carvedilol 25 MG Tablet PO ×2 (09:36→20:48)
[2024-02-29] MEDS: Nystatin Powder 15gm Bottle 1 APPLIC TOPICAL ×2 (09:36→20:47)
[2024-02-29] MEDS: Ramipril 5 MG Capsule PO (09:37)
[2024-02-29] MEDS: Glucerna Shake 120 ML LIQUID PO ×3 (09:38→17:55)
[2024-02-29 09:44] VITALS: BP 116/62; PULSE 74
[2024-02-29] MEDS: Acetaminophen 500 MG Tablet 1000 MG PO ×2 (11:42→20:51)
[2024-02-29] MEDS: 0.9% Saline Lock 10 ML Syringe IV ×2 (12:49→20:55)
[2024-02-29 13:20] VITALS: BP 121/59; PULSE 69; RESP 18; TEMP 36.4; O2SAT 95
[2024-02-29 20:43] VITALS: BP 115/57; PULSE 78
[2024-03-01] MEDS: Acetaminophen 500 MG Tablet 1000 MG PO ×3 (05:26→21:56)
[2024-03-01 06:44] LABS: Bedside Glucose 113 mg/dL (74-106)
[2024-03-01] MEDS: Glimepiride 2 MG Tablet PO (07:42)
[2024-03-01] MEDS: Carvedilol 25 MG Tablet PO ×2 (07:42→21:57)
[2024-03-01] MEDS: Multivitamins,Ther W-Minerals Tablet 1 TABLET PO (07:42)
[2024-03-01] MEDS: Glucerna Shake 120 ML LIQUID PO ×3 (07:42→17:12)
[2024-03-01] MEDS: Ramipril 5 MG Capsule PO (07:42)
[2024-03-01] MEDS: Senna/Docusate Sodium 1 Tablet PO ×2 (07:43→21:56)
[2024-03-01] MEDS: Nystatin Powder 15gm Bottle 1 APPLIC TOPICAL ×2 (07:43→21:56)
[2024-03-01] MEDS: Menthol/Lanolin/Calamine/Znox 113 GM Tube 1 APPLIC TOPICAL ×2 (07:43→21:55)
[2024-03-01] MEDS: Lidocaine 5% Patch 1 PATCH TOPICAL (07:43)
[2024-03-01 09:54] VITALS: BP 134/55; PULSE 64; RESP 16; TEMP 36.4; O2SAT 95
--- NOTE | 2024-03-01 17:13 | CASEMGMT ---
Social Work THEODORE met with pt and introduced self and role of SW. SW attempted to complete initial assessment. Pt is not able to understand questions SW is asking and not responding apporpriatly. THEODORE called pt dgt Chau who provided information. Pt has been living alone and Chau reports that the family though pt was doing better at home than she actually was. Family does not feel pt can return home alone and will need AL at time of dc. THEODORE will send list of AL to pt's dgt and encouraged dgt to begin process of finding an AL at this time.THEODORE educated dgt on [employer] Medicare benefit and that NRD is 03/08 with expected dc of 03/16. THEODORE will continue to follow for dc planning and support. MARCY Davis
[2024-03-01 22:03] VITALS: BP 107/47; PULSE 83
[2024-03-02] MEDS: Acetaminophen 500 MG Tablet 1000 MG PO ×3 (05:54→20:14)
[2024-03-02 06:38] LABS: Bedside Glucose 103 mg/dL (74-106)
[2024-03-02] MEDS: Lidocaine 5% Patch 1 PATCH TOPICAL (07:54)
[2024-03-02] MEDS: Multivitamins,Ther W-Minerals Tablet 1 TABLET PO (07:54)
[2024-03-02] MEDS: Glucerna Shake 120 ML LIQUID PO ×3 (07:54→16:52)
[2024-03-02] MEDS: Nystatin Powder 15gm Bottle 1 APPLIC TOPICAL ×2 (07:54→20:11)
[2024-03-02] MEDS: Senna/Docusate Sodium 1 Tablet PO ×2 (07:54→20:14)
[2024-03-02] MEDS: Ramipril 5 MG Capsule PO (07:54)
[2024-03-02] MEDS: Glimepiride 2 MG Tablet PO (07:54)
[2024-03-02] MEDS: Carvedilol 25 MG Tablet PO ×2 (07:54→20:12)
[2024-03-02] MEDS: Menthol/Lanolin/Calamine/Znox 113 GM Tube 1 APPLIC TOPICAL ×2 (07:55→20:11)
[2024-03-02 10:18] VITALS: BP 104/55; PULSE 70; RESP 18; TEMP 36.6; O2SAT 92
--- NOTE | 2024-03-02 17:35 | NURSING ---
New orders for melatonin prn HS due to insomnia per Dr. Ellis.
[2024-03-02 20:00] VITALS: PULSE 70; O2SAT 92
[2024-03-02 20:09] VITALS: BP 111/61; PULSE 69
[2024-03-03] MEDS: MELATONIN 10 MG TABLET PO (02:17)
[2024-03-03 04:41] VITALS: PULSE 72; O2SAT 95
[2024-03-03] MEDS: Acetaminophen 500 MG Tablet 1000 MG PO ×3 (05:18→21:02)
[2024-03-03 07:07] LABS: Bedside Glucose 95 mg/dL (74-106)
[2024-03-03 07:54] VITALS: BP 143/57; PULSE 67; RESP 16; TEMP 36.3; O2SAT 94
[2024-03-03] MEDS: Ramipril 5 MG Capsule PO (07:58)
[2024-03-03] MEDS: Multivitamins,Ther W-Minerals Tablet 1 TABLET PO (07:58)
[2024-03-03] MEDS: Glimepiride 2 MG Tablet PO (07:58)
[2024-03-03] MEDS: Carvedilol 25 MG Tablet PO ×2 (07:59→21:01)
[2024-03-03] MEDS: Menthol/Lanolin/Calamine/Znox 113 GM Tube 1 APPLIC TOPICAL ×2 (07:59→20:58)
[2024-03-03] MEDS: Nystatin Powder 15gm Bottle 1 APPLIC TOPICAL ×2 (07:59→20:58)
[2024-03-03] MEDS: Lidocaine 5% Patch 1 PATCH TOPICAL (07:59)
[2024-03-03] MEDS: Senna/Docusate Sodium 1 Tablet PO (08:00)
[2024-03-03] MEDS: Glucerna Shake 120 ML LIQUID PO ×3 (08:01→17:45)
[2024-03-03] MEDS: Magnesium Citrate 300 ML PO (09:57)
[2024-03-03 20:55] VITALS: BP 136/52; PULSE 71
[2024-03-03] MEDS: Senna/Docusate Sodium 1 Tablet 2 TABLET PO (21:02)
[2024-03-04] MEDS: Acetaminophen 500 MG Tablet 1000 MG PO ×3 (05:18→20:24)
[2024-03-04 06:27] LABS: Bedside Glucose 87 mg/dL (74-106)
[2024-03-04] MEDS: Glucerna Shake 120 ML LIQUID PO ×3 (07:39→16:59)
[2024-03-04] MEDS: Carvedilol 25 MG Tablet PO ×2 (07:40→20:23)
[2024-03-04] MEDS: Multivitamins,Ther W-Minerals Tablet 1 TABLET PO (07:40)
[2024-03-04] MEDS: Menthol/Lanolin/Calamine/Znox 113 GM Tube 1 APPLIC TOPICAL ×2 (07:40→20:21)
[2024-03-04] MEDS: Nystatin Powder 15gm Bottle 1 APPLIC TOPICAL ×2 (07:40→20:20)
[2024-03-04] MEDS: Glimepiride 2 MG Tablet PO (07:40)
[2024-03-04] MEDS: Senna/Docusate Sodium 1 Tablet 2 TABLET PO ×2 (07:40→20:24)
[2024-03-04] MEDS: Ramipril 5 MG Capsule PO (07:40)
[2024-03-04] MEDS: Lidocaine 5% Patch 1 PATCH TOPICAL (07:40)
--- NOTE | 2024-03-04 08:06 | CASEMGMT ---
Social Work Assisted Living information emailed to pt's dgt Chau and THEODORE encouraged her to begin looking for facilities for pt as EDC provided from insurance is 03/16. THEODORE will continue to follow to assist with dc planning. MARCY Davis
[2024-03-04 09:22] VITALS: BP 137/65; PULSE 66; RESP 16; TEMP 36.2; O2SAT 95
--- NOTE | 2024-03-04 14:01 | CASEMGMT ---
BIMS (03/25) and PHQ9() interviews completed on this date for MDS assessment. MARCY Davis
[2024-03-04 20:00] VITALS: PULSE 78; O2SAT 94
[2024-03-04 20:20] VITALS: BP 144/54; PULSE 78; O2SAT 94
[2024-03-05] MEDS: Acetaminophen 500 MG Tablet 1000 MG PO ×3 (05:27→21:07)
[2024-03-05 07:11] LABS: Bedside Glucose 101 mg/dL (74-106)
[2024-03-05] MEDS: Lidocaine 5% Patch 1 PATCH TOPICAL (07:32)
[2024-03-05] MEDS: Ramipril 5 MG Capsule PO (07:32)
[2024-03-05] MEDS: Multivitamins,Ther W-Minerals Tablet 1 TABLET PO (07:32)
[2024-03-05] MEDS: Glimepiride 2 MG Tablet PO (07:32)
[2024-03-05] MEDS: Carvedilol 25 MG Tablet PO ×2 (07:32→21:07)
[2024-03-05] MEDS: Senna/Docusate Sodium 1 Tablet 2 TABLET PO ×2 (07:32→21:07)
[2024-03-05] MEDS: Menthol/Lanolin/Calamine/Znox 113 GM Tube 1 APPLIC TOPICAL ×2 (07:41→21:07)
[2024-03-05] MEDS: Nystatin Powder 15gm Bottle 1 APPLIC TOPICAL ×2 (07:41→21:06)
[2024-03-05] MEDS: Glucerna Shake 120 ML LIQUID PO ×3 (08:23→16:49)
[2024-03-05] MEDS: traMADol 50 MG Tablet PO ×2 (08:25→21:08)
[2024-03-05 09:41] VITALS: BP 144/68; PULSE 66; RESP 16; TEMP 36.2; O2SAT 96
[2024-03-05 10:42] VITALS: BMI 26.0
--- NOTE | 2024-03-05 11:25 | NURSING ---
Passenger Car Cleaning Supervisor Note; Activity Asset: Teetee Mae is independent in her choice if daily activities w/reminders. She has confusion on why she is her and why her igypmj-tt-wyf is not here. He will watch tv and read when not with therapy or family. She did stated she welcomes visits w/the behavior management specialist and therapy dog when available. Staff will encourage social activities, remind her of weekly activities and respect her right to say no.
[2024-03-05 21:05] VITALS: PULSE 82; O2SAT 92
[2024-03-06] MEDS: Acetaminophen 500 MG Tablet 1000 MG PO ×3 (05:30→20:39)
[2024-03-06 05:35] LABS: Absolute Lymphocyte Count 2.35 X10^3/uL (0.83-4.51); Absolute Neutrophil Count 3.1 X10^3/uL (2.0-7.7); Basophil# 0.03 X10^3/uL; Basophil% 0.5 % (0-1); Eosinophil# 0.26 X10^3/uL; Eosinophils% 4.2 % (0-5); Hematocrit 30.9 % (37-47); Hemoglobin 10.1 g/dL (12.0-15.0); Lymphocyte # 2.35 X10^3/ul (0.83-4.51); Lymphocyte % 38.1 % (19-41); Mean Corp Hgb Conc 32.7 g/dL (32-36); Mean Corpuscular Hgb 30.3 pg (27.0-32.0); Mean Corpuscular Volume 92.8 fL (81-99); Mean Platelet Vol. 9.3 fl (6.2-12.0); Monocyte# 0.42 X10^3/uL; Monocyte% 6.8 % (0-10); NRBC Flagged by Analyzer 0 % (0-5); Neutrophil % 50.2 % (47-70); Platelet Count 273 K/mm3 (150-450); RBC Distribution Width CV 13.3 % (11.6-14.6); RBC Distribution Width SD 45.1 fl (35.1-43.9); Red Blood Count 3.33 M/mm3 (4.2-5.4); White Blood Count 6.2 K/mm3 (4.4-11.0)
[2024-03-06 05:52] LABS: Anion Gap 4 (5-15); BUN 24 mg/dL (7-18); BUN/Creat Ratio 29.1 RATIO (10-20); Chloride 107 mmol/L (98-107); Creatinine, Serum 0.82 mg/dL (0.55-1.02); EST Glomerular Filtration Rate 69 mL/min (>60); Est Glom Filt Rate - Afr Amer 84 mL/min (>60); Estimated Creatinine Clearance 38.53 ml/min; Glucose 106 mg/dL (74-106); Potassium 4.7 mmol/L (3.5-5.1); Sodium Level 137 mmol/L (136-145)
[2024-03-06 06:38] VITALS: PULSE 72; O2SAT 92
[2024-03-06 06:58] LABS: Bedside Glucose 110 mg/dL (74-106)
[2024-03-06] MEDS: Glucerna Shake 120 ML LIQUID PO ×2 (07:43→13:14)
[2024-03-06] MEDS: Glimepiride 2 MG Tablet PO (07:44)
[2024-03-06] MEDS: Multivitamins,Ther W-Minerals Tablet 1 TABLET PO (07:44)
[2024-03-06] MEDS: Ramipril 5 MG Capsule PO (07:44)
[2024-03-06] MEDS: Senna/Docusate Sodium 1 Tablet 2 TABLET PO ×2 (07:45→20:40)
[2024-03-06] MEDS: Carvedilol 25 MG Tablet PO ×2 (07:45→20:39)
[2024-03-06] MEDS: Lidocaine 5% Patch 1 PATCH TOPICAL (07:45)
[2024-03-06] MEDS: Nystatin Powder 15gm Bottle 1 APPLIC TOPICAL ×2 (07:51→20:40)
[2024-03-06] MEDS: Menthol/Lanolin/Calamine/Znox 113 GM Tube 1 APPLIC TOPICAL ×2 (07:51→20:40)
--- NOTE | 2024-03-06 08:26 | NURSING ---
Forging Machine Operator Note; MDS for 03/05/2024 Complete
[2024-03-06 09:15] VITALS: BP 135/70; PULSE 71; RESP 16; TEMP 36.4; O2SAT 93
--- NOTE | 2024-03-06 09:24 | CASEMGMT ---
Social Work- IDT Care Planning. IDT met with patient and daughters present, Chau at bedside and Ankita on the phone. Discussed patient's progress with therapy (PT/OT/ST), activities, and dietary. Per ST, patient has cognitive concerns with comprehension and cognitive functioning. Dietary patient is on a consistent carb diet with Glucerna. Dietary is increasing glucerna daily due to weight loss. Patient requires 2 person assist mod/min with transfers, toileting, ambulation, and sit to stand with randell walker. Patient is ambulating 25ft min A of 2 person assist. Patient requires max A with upper and lower extremity dressing and ADLS due to nwb status for left arm. Therapy is recommending increased use of adaptive equipment. Therapy does not recommend patient return home alone. Patient is active with activities. THEODORE educated patient and daughters of [employer] insurance coverage and next review date 03/08/2024; estimated discharge date 03/16. Patient's daughters were provided list of assisted living. Family requested not to discuss discharge with patient due to patient being unaware of plan not to return home. THEODORE will continue to follow for discharge plans. MIGUELITO Carpenter
[2024-03-06] MEDS: Tuberculin,Purif.prot.deriv. 50 TU/ML Vial 0.1 ML ID (11:44)
[2024-03-06] MEDS: COVID VAC 23-24(12UP)(ANDU)/PF 50 MCG/0.5 ML SYR/VIAL IM (14:20)
[2024-03-06] MEDS: Glucerna Shake 120 ML LIQUID 240 ML PO (16:26)
--- NOTE | 2024-03-06 17:08 | RAD_ITS ---
EXAM: XR LEFT KNEE, 3 VIEWS CLINICAL INDICATION: Pain, unable to bear weight LLE. TECHNIQUE: Three views of the left knee. COMPARISON: No relevant prior studies available. FINDINGS: BONES/JOINTS: Severe tricompartmental degenerative changes in the left knee consistent with osteoarthritis. No acute fracture. No subluxation. Normal alignment. No sclerotic or destructive changes observed. Intramedullary maico in the femur. SOFT TISSUES: Unremarkable. No soft tissue swelling or gas. No radiopaque foreign body. RAD/Knee 3 Views IMPRESSION: Severe tricompartmental degenerative changes in the left knee consistent with osteoarthritis. Electronically Signed: Luis Gomez MD at 7:34 EDT ,
--- NOTE | 2024-03-06 17:08 | RAD_ITS ---
INDICATION: Pain, not bearing weight LLE EXAMINATION/TECHNIQUE: X-RAY - LEFT XR Hip Unilateral with Pelvis when performed; 2-3 Views COMPARISON: None. FINDINGS: SOFT TISSUES: Vascular calcifications. BONES/JOINTS: No acute fracture or dislocation. No significant degenerative changes. No erosive changes. Internal fixation hardware in the left femur is intact with no evidence of loosening. RAD/HIP, UNI W/ Pelvis 2-3 Views IMPRESSION: No evidence of an acute fracture or dislocation. Electronically Signed: Zaid Otoole DO at 7:28 EDT ,
--- NOTE | 2024-03-06 17:08 | RAD_ITS ---
STUDY: X-RAY - LEFT TIBIA AND FIBULA REASON FOR EXAM: Female, 88 years old. Pain, unable to bear weight LLE. TECHNIQUE: 2 view(s) of the tibia and fibula were obtained. COMPARISON: None. FINDINGS: Mild probable chronic compression of the medial tibial plateau. Normal visualized fibula. The soft tissue structures are unremarkable. RAD/Tibia & Fibula 2 Views IMPRESSION: Probable chronic compression of the medial tibial plateau however if concern for acute fracture CT recommended Otherwise no acute fracture or other significant abnormality Electronically Signed: Zaid De La Fuente MD at 18:24 EDT ,
[2024-03-07] MEDS: Acetaminophen 500 MG Tablet 1000 MG PO ×3 (05:53→20:22)
[2024-03-07 06:49] LABS: Bedside Glucose 107 mg/dL (74-106)
[2024-03-07] MEDS: Multivitamins,Ther W-Minerals Tablet 1 TABLET PO (07:50)
[2024-03-07] MEDS: Glimepiride 2 MG Tablet PO (07:50)
[2024-03-07] MEDS: Lidocaine 5% Patch 1 PATCH TOPICAL (09:59)
[2024-03-07] MEDS: Ramipril 5 MG Capsule PO (09:59)
[2024-03-07] MEDS: Carvedilol 25 MG Tablet PO ×2 (09:59→20:20)
[2024-03-07] MEDS: Senna/Docusate Sodium 1 Tablet 2 TABLET PO ×2 (10:00→20:21)
[2024-03-07] MEDS: Menthol/Lanolin/Calamine/Znox 113 GM Tube 1 APPLIC TOPICAL ×2 (10:00→20:17)
[2024-03-07] MEDS: Nystatin Powder 15gm Bottle 1 APPLIC TOPICAL ×2 (10:00→20:19)
--- NOTE | 2024-03-07 11:23 | CASEMGMT ---
Social Work SW met with patient and daughter, Chau to discuss placement. Chau requested to meet outside of patient room. Chau informed SW that the family has not informed patient of placement for potential halfway care, yet. Chau inquired about coverage for halfway care or placement at an assisted living. SW informed Chua that current coverage is [employer] Medicare. SW informed Chau that [employer] dictates coverage for stay on TCU. SW inquired about secondary coverage or savings. Chau informed SW that the patient does not have an income outside of social security; minimal savings of 5,000. SW provided information for [employer]. THEODORE notified [facility] L[facility]. MIGUELITO Carpenter
[2024-03-07 14:07] VITALS: BP 145/63; PULSE 82; RESP 18; TEMP 36.7; O2SAT 95
[2024-03-07 20:28] VITALS: BP 142/62; PULSE 79
[2024-03-08] MEDS: Acetaminophen 500 MG Tablet 1000 MG PO ×3 (05:25→19:43)
[2024-03-08 06:49] LABS: Bedside Glucose 96 mg/dL (74-106)
[2024-03-08] MEDS: Multivitamins,Ther W-Minerals Tablet 1 TABLET PO (09:32)
[2024-03-08] MEDS: Senna/Docusate Sodium 1 Tablet 2 TABLET PO ×2 (09:32→19:43)
[2024-03-08] MEDS: Glimepiride 2 MG Tablet PO (09:32)
[2024-03-08] MEDS: Lidocaine 5% Patch 1 PATCH TOPICAL (09:33)
[2024-03-08] MEDS: Carvedilol 25 MG Tablet PO ×2 (09:33→19:42)
[2024-03-08] MEDS: Ramipril 5 MG Capsule PO (09:35)
[2024-03-08] MEDS: Nystatin Powder 15gm Bottle 1 APPLIC TOPICAL ×2 (09:35→19:39)
[2024-03-08] MEDS: Menthol/Lanolin/Calamine/Znox 113 GM Tube 1 APPLIC TOPICAL ×2 (09:36→19:37)
[2024-03-08] MEDS: Glucerna Shake 120 ML LIQUID 240 ML PO ×3 (09:37→17:29)
[2024-03-08 13:14] VITALS: BP 114/52; PULSE 75; RESP 16; TEMP 36.3; O2SAT 93
[2024-03-08 19:30] VITALS: BP 128/57; PULSE 78
[2024-03-09 02:54] VITALS: PULSE 78; O2SAT 93
[2024-03-09] MEDS: Acetaminophen 500 MG Tablet 1000 MG PO ×3 (05:43→21:10)
[2024-03-09 06:45] LABS: Bedside Glucose 110 mg/dL (74-106)
[2024-03-09] MEDS: Glucerna Shake 120 ML LIQUID 240 ML PO ×3 (07:51→14:39)
[2024-03-09] MEDS: Carvedilol 25 MG Tablet PO ×2 (07:52→21:10)
[2024-03-09] MEDS: Menthol/Lanolin/Calamine/Znox 113 GM Tube 1 APPLIC TOPICAL ×2 (07:52→21:12)
[2024-03-09] MEDS: Ramipril 5 MG Capsule PO (07:52)
[2024-03-09] MEDS: Glimepiride 2 MG Tablet PO (07:53)
[2024-03-09] MEDS: Multivitamins,Ther W-Minerals Tablet 1 TABLET PO (07:53)
[2024-03-09] MEDS: Senna/Docusate Sodium 1 Tablet 2 TABLET PO (07:53)
[2024-03-09] MEDS: Nystatin Powder 15gm Bottle 1 APPLIC TOPICAL ×2 (07:53→21:10)
[2024-03-09] MEDS: Lidocaine 5% Patch 1 PATCH TOPICAL (07:54)
[2024-03-09 13:38] VITALS: BP 109/48; PULSE 62; RESP 16; TEMP 36.2; O2SAT 94
[2024-03-09] MEDS: MELATONIN 10 MG TABLET PO (21:13)
[2024-03-10 03:19] VITALS: BP 143/66; PULSE 71; O2SAT 92
[2024-03-10] MEDS: Acetaminophen 500 MG Tablet 1000 MG PO ×3 (05:49→21:04)
[2024-03-10 06:17] LABS: Bedside Glucose 104 mg/dL (74-106)
[2024-03-10] MEDS: Glucerna Shake 120 ML LIQUID 240 ML PO ×3 (08:07→16:19)
[2024-03-10] MEDS: Glimepiride 2 MG Tablet PO (08:08)
[2024-03-10] MEDS: Lidocaine 5% Patch 1 PATCH TOPICAL (08:08)
[2024-03-10] MEDS: Menthol/Lanolin/Calamine/Znox 113 GM Tube 1 APPLIC TOPICAL ×2 (08:08→21:03)
[2024-03-10] MEDS: Multivitamins,Ther W-Minerals Tablet 1 TABLET PO (08:09)
[2024-03-10] MEDS: Carvedilol 25 MG Tablet PO ×2 (08:09→21:04)
[2024-03-10] MEDS: Nystatin Powder 15gm Bottle 1 APPLIC TOPICAL ×2 (08:09→21:04)
[2024-03-10] MEDS: Ramipril 5 MG Capsule PO (08:09)
[2024-03-10 12:55] VITALS: BP 104/49; PULSE 68; RESP 14; TEMP 36.4; O2SAT 96
--- NOTE | 2024-03-10 15:29 | NURSING ---
New order received from Dr. Ellis to change Melatonin from prn to scheduled. Patient updated.
[2024-03-10 20:00] VITALS: PULSE 66; O2SAT 94
[2024-03-10] MEDS: MELATONIN 10 MG TABLET PO (21:04)
[2024-03-10] MEDS: Senna/Docusate Sodium 1 Tablet 2 TABLET PO (21:04)
[2024-03-11] MEDS: Acetaminophen 500 MG Tablet 1000 MG PO ×3 (05:57→20:00)
[2024-03-11 06:01] VITALS: PULSE 64; O2SAT 94
[2024-03-11 06:51] LABS: Bedside Glucose 90 mg/dL (74-106)
[2024-03-11] MEDS: Lidocaine 5% Patch 1 PATCH TOPICAL (07:36)
[2024-03-11] MEDS: Glucerna Shake 120 ML LIQUID 240 ML PO ×3 (07:36→17:10)
[2024-03-11] MEDS: Carvedilol 25 MG Tablet PO ×2 (07:37→20:01)
[2024-03-11] MEDS: Ramipril 5 MG Capsule PO (07:38)
[2024-03-11] MEDS: Senna/Docusate Sodium 1 Tablet 2 TABLET PO ×2 (07:38→19:59)
[2024-03-11] MEDS: Menthol/Lanolin/Calamine/Znox 113 GM Tube 1 APPLIC TOPICAL ×2 (07:38→19:55)
[2024-03-11] MEDS: Multivitamins,Ther W-Minerals Tablet 1 TABLET PO (07:38)
[2024-03-11] MEDS: Glimepiride 2 MG Tablet PO (07:38)
[2024-03-11] MEDS: Nystatin Powder 15gm Bottle 1 APPLIC TOPICAL ×2 (07:38→19:57)
--- NOTE | 2024-03-11 10:12 | MDS.RN ---
Information for the MDS was obtained from review of the clinical record, interview of resident, staff, and direct observation of resident?s care.
--- NOTE | 2024-03-11 13:03 | CASEMGMT ---
Social Work THEODORE met with patient and daughter, Chau at bedside to follow up regarding choice for placement. Chau informed THEODORE that neither she and her sister was able to make a choice for facility. Chau inquired about insurance update. Patient last update was 03/08. Current next review date is 03/12 with expected discharge date of 03/16. Chau informed THEODORE that she will be meeting with Lissa at [facility] to complete Medicaid application. THEODORE will continue to follow to support discharge planning. MIGUELITO Carpenter
[2024-03-11 13:48] VITALS: BP 121/52; PULSE 66; RESP 16; TEMP 36.4; O2SAT 97
[2024-03-11] MEDS: MELATONIN 10 MG TABLET PO (20:00)
[2024-03-11 20:06] VITALS: BP 121/52; PULSE 69
[2024-03-12] MEDS: Acetaminophen 500 MG Tablet 1000 MG PO ×3 (05:09→20:33)
[2024-03-12 06:38] LABS: Bedside Glucose 83 mg/dL (74-106)
[2024-03-12 08:45] VITALS: BP 110/78; PULSE 80; RESP 16; TEMP 36.4; O2SAT 96
[2024-03-12] MEDS: Glucerna Shake 120 ML LIQUID 240 ML PO ×3 (09:03→16:35)
[2024-03-12] MEDS: Glimepiride 2 MG Tablet PO (09:04)
[2024-03-12] MEDS: Lidocaine 5% Patch 1 PATCH TOPICAL (09:06)
[2024-03-12] MEDS: Senna/Docusate Sodium 1 Tablet 2 TABLET PO ×2 (09:06→20:33)
[2024-03-12] MEDS: Ramipril 5 MG Capsule PO (09:06)
[2024-03-12] MEDS: Multivitamins,Ther W-Minerals Tablet 1 TABLET PO (09:06)
[2024-03-12] MEDS: Carvedilol 25 MG Tablet PO ×2 (09:06→20:34)
[2024-03-12] MEDS: Menthol/Lanolin/Calamine/Znox 113 GM Tube 1 APPLIC TOPICAL ×2 (09:07→20:34)
[2024-03-12] MEDS: Nystatin Powder 15gm Bottle 1 APPLIC TOPICAL ×2 (09:08→20:34)
[2024-03-12 10:00] VITALS: BMI 25.6
[2024-03-12 13:38] VITALS: BP 80/41; PULSE 50; RESP 14; TEMP 36.7; O2SAT 95
[2024-03-12 13:50] VITALS: BP 118/64
--- NOTE | 2024-03-12 15:43 | CASEMGMT ---
Social Work Insurance issued LCD 03/14, DC 03/15. SW met with pt and dtr, Carmelita, at bedside. SW explained LCD and appeal rights. Inquired about DC plans. Dtr stated nothing is in place so I'm going to have to take her home. SW inquired further to assist with planning. Dtr stated Lissa at [facility] is awaiting further paperwork that dtr's need to obtain and provide to determine [employer] eligibility. Dtr also stated she has not had time to contact SNFs for acceptance. SW first responded to [employer] - this worker will follow up with Lissa to inquire about process, if pt would need to pay first month OOP at SNF or if there is a [employer]ER pending number. Second, this worker educated that SW places SNF referrals; dtr only needs to provide choices. Dtr relieved and is choosing [facility] for referral, and pt has some funds to potentially pay OOP first month. If unable, dtr stated family will provide 24/7 care to pt until pt can be placed. SW will assist with referrals and follow up with dtr on outcomes. Dtr appreciative. SW to place referrals via [facility] to [facility]. Plan: DC 03/15 to SNF, intermediate vs home with skilled HHC PT/OT/ST/SN/HERNANDEZ/SW. JESSICA Javier
[2024-03-12] MEDS: MELATONIN 10 MG TABLET PO (20:34)
--- NOTE | 2024-03-12 20:43 | DS.PCM_ITS ---
Providers Date of Admission: 02/27/24 Primary Care Physician: Dr. Maria Teresa Pedroza DO Reason For Visit: LEFT HUMERUS FRACTURE Diagnosis Discharge Diagnosis (1) Debility: Status: Acute Code(s): R53.81 - Other malaise (2) Fracture of proximal end of left humerus: Status: Acute Code(s): S42.202A - Unspecified fracture of upper end of left humerus, initial encounter for closed fracture (3) Nasal bone fracture: Status: Acute Code(s): S02.2XXA - Fracture of nasal bones, initial encounter for closed fracture (4) Atrial fibrillation with rapid ventricular response: Status: Acute Code(s): I48.91 - Unspecified atrial fibrillation (5) Concussion: Status: Acute Code(s): S06.0XAA - Concussion with loss of consciousness status unknown, initial encounter (6) Diabetes: Status: Acute Code(s): E11.9 - Type 2 diabetes mellitus without complications (7) Macular degeneration: Status: Acute Code(s): H35.30 - Unspecified macular degeneration (8) Coronary artery disease: Status: Acute Code(s): I25.10 - Atherosclerotic heart disease of [place] coronary artery without angina pectoris (9) Chronic HFrEF (heart failure with reduced ejection fraction): Status: Chronic Code(s): I50.22 - Chronic systolic (congestive) heart failure Plan 88 year old female with below past medical history hospitalized for fall, left proximal humerus fracture, treated non-operatively, complicated by concussion, atrial fibrillation with rvr, admitted to TCU with debility, here for rehabilitation, strengthening, prior to discharge home alone. * Debility - PT/OT. * Pain - Tylenol 1000mg q6 prn pain (1-10). * Bowel - senna/colace 1 tablet bid, Magnesium citrate 300ml daily prn. * Adult immunization - Administer pneumonia vaccine, covid vaccine, flu vaccine as appropriate. * DVT prophylaxis - Hold, anemia. * Concussion - Monitor, consider ST. * Atrial fibrillation - Coreg 25mg bid, no anticoagulation due to risk of falls. * Coronary artery disease - Coreg 25mg bid, Ramipril 5mg daily. * Chronic HFrEF - Coreg 25mg bid, Ramipril 5mg daily. * Diabetes Mellitus II - Glimepiride 1mg daily. * Nutrition - Glucerna Shake 120ml po tidcm. * Skin irritation - Calmoseptine topical bid. * Nutrition - MVI 1 tablet daily. * Tinea Corporis - Nystatin powder topical bid. Medications at Discharge Home Medications carvedilol 25 mg tablet 25 mg PO BID heart/bp #180 tabs 01/16/23 ramipril 5 mg capsule 5 mg PO DAILY blood pressure #90 caps 03/23/23 glimepiride 1 mg tablet 1 mg PO DAILY blood sugar 02/19/24 xkqflldx-cemp-zruc 8 mg-folic 400 mcg-K 50 mcg-lutein 300 mcg tablet 1 tab PO DAILY supplement 02/19/24 acetaminophen 500 mg tablet 1,000 mg (2 x 500 mg) PO Q8 #0 tabs 03/12/24 Hospital Course Operations None Procedures None Summary of Care Provided Minutes Spent on Discharge: 35 Hospital Course: 88 year old female with below past medical history hospitalized for fall, left proximal humerus fracture, treated non-operatively, complicated by concussion, atrial fibrillation with rvr, admitted to TCU with debility, here for rehabilitation, strengthening, prior to discharge home alone. Discharge 03/15/2024 to SNF, intermediate versus home with skilled HHC PT/OT/ST/SN/HERNANDEZ/SW. Physical Exam Const alert General Appearance: cooperative HEENT normocephalic Eyes PERRL and EOMs intact bilaterally Neck supple, no JVD and no carotid bruits Resp normal respiratory effort, normal air movement and clear to auscultation bilaterally Cardio regular rate and regular rhythm GI normal to inspection, nondistended, normoactive bowel sounds, non-tender and non-distended Extremity normal capillary refill Extremity Narrative: LUE sling. General Extremity: Negative for edema Skin no rashes or lesions noted General Skin Exam: no breakdown Psych affect normal Appearance: appropriate Weight / BMI Weight Weight: 59.511 kg Body Mass Index (BMI) 25.6 ABG / Lab / Microbiology Data 03/06/24 05:07 03/06/24 05:07 Laboratory: Laboratory Results - last 24 hr 03/12/24 06:02: POC Glucose 83 Microbiology: Microbiology 03/08/24 05:29 Nasal Secretion SARS-CoV-2 Antigen (Rapid) - Final 03/01/24 05:30 Nasal Secretion SARS-CoV-2 Antigen (Rapid) - Final D/C Instructions Discharge Diet: No restrictions Discharge Activity: Return to Normal Activity, May Shower and Use Walker Weight Bearing Status: Weight bearing as tolerated and No weight bearing (Left upper extremity.) Call your doctor if you observe: Fever of 101 or Higher, Inability to urinate, Inability to have a bowel movement, Shortness of breath, Dizziness, Fainting spells, Swelling in the ankles, Chest pain and Uncontrolled pain Additional Instructions: Discharge 03/15/2024 to SNF, intermediate versus home with skilled HHC PT/OT/ST/SN/HERNANDEZ/SW. Please Follow Up With: Kristian Whitlock MD When: As scheduled. Meaningful Use Info Meaningful Use Meaningful Use Diagnoses (Choose all that apply): None applicable Ischemic Stroke Statin Dosing Therapy Reference: STATIN DOSE THERAPY REFERENCE: * Patients > 75 years receive moderate or high dose statin therapy. * Patients 75 years or YOUNGER should receive HIGH intensity statin dose unless contraindicated. You will be required to document reason for non-treatment if statin daily dose does not meet guidelines. HIGH DOSE STATIN THERAPY DAILY Atorvastatin > than or = to 40 mg Rosuvastatin > than or = to 20 mg Amlodipine + Atorvastatin > than or = to 2.5/40 mg Ezetimibe + Simvastatin 10/80 mg Simvastatin 80mg Discharge Plan Admission Admit Date/Time: 02/27/24 14:20 Primary Reason for Your Visit: Debility. Attending Provider: Patrick Ellis Chi Primary Care Provider: Maria Teresa Pedroza Instructions Additional Instructions / Restrictions: Discharge 03/15/2024 to SNF, intermediate versus home with skilled HHC PT/OT/ST/SN/HERNANDEZ/SW. Discharge Orders/Prescriptions Prescriptions: New acetaminophen 500 mg Tablet 1,000 mg PO Q8 Qty: 0 0RF Continued glimepiride 1 mg tablet 1 mg PO DAILY tupbqfdg-vur-eisy-FA-vit K-lut 8 mg iron-400 mcg-50 mcg tablet 1 tab PO DAILY carvedilol 25 mg tablet 25 mg PO BID Qty: 180 3RF ramipril 5 mg capsule 5 mg PO DAILY Qty: 90 3RF Discontinued Trimo-[place] Jelly 0.025-0.01 % gel 1 ea vaginal PRN PRN (Reason: IRRITATION) Referrals / Follow Up: Maria Teresa Pedroza DO [Primary Care Provider] - Disposition Disposition (needs filled in before D/C Order can be placed): NonSkilled NH/Intermed Care
[2024-03-12 20:45] VITALS: PULSE 67; O2SAT 92
--- NOTE | 2024-03-12 20:48 | TREXTCAR_ITS ---
Diet Diet Order/Speech Therapy: 02/27/24 14:31 Diet: Regular - General Food consistency:: Regular Liquid Consistency:: Regular/Thin Dietary Modifications:: Consistent Carbohydrate Is pt able to select menu?: Yes Diet Comments: give SUGAR FREE pop, lemonade, etc drink option as able Routine Orders/Code Status Code Status: Full Code Wound(s) Right forehead: Wound Type: Abrasion Therapies Weight Bearing: Non weight bearing Extremity Affected:: Left Upper Physical Therapy: Eval and Treat Occupational Therapy: Eval and Treat Problem/Diagnosis (1) Debility: Status: Acute Code(s): R53.81 - Other malaise (2) Fracture of proximal end of left humerus: Status: Acute Code(s): S42.202A - Unspecified fracture of upper end of left humerus, initial encounter for closed fracture (3) Nasal bone fracture: Status: Acute Code(s): S02.2XXA - Fracture of nasal bones, initial encounter for closed fracture (4) Atrial fibrillation with rapid ventricular response: Status: Acute Code(s): I48.91 - Unspecified atrial fibrillation (5) Concussion: Status: Acute Code(s): S06.0XAA - Concussion with loss of consciousness status unknown, initial encounter (6) Diabetes: Status: Acute Code(s): E11.9 - Type 2 diabetes mellitus without complications (7) Macular degeneration: Status: Acute Code(s): H35.30 - Unspecified macular degeneration (8) Coronary artery disease: Status: Acute Code(s): I25.10 - Atherosclerotic heart disease of [place] coronary artery without angina pectoris (9) Chronic HFrEF (heart failure with reduced ejection fraction): Status: Chronic Code(s): I50.22 - Chronic systolic (congestive) heart failure Plan 88 year old female with below past medical history hospitalized for fall, left proximal humerus fracture, treated non-operatively, complicated by concussion, atrial fibrillation with rvr, admitted to TCU with debility, here for rehabilitation, strengthening, prior to discharge home alone. * Debility - PT/OT. * Pain - Tylenol 1000mg q6 prn pain (1-10). * Bowel - senna/colace 1 tablet bid, Magnesium citrate 300ml daily prn. * Adult immunization - Administer pneumonia vaccine, covid vaccine, flu vaccine as appropriate. * DVT prophylaxis - Hold, anemia. * Concussion - Monitor, consider ST. * Atrial fibrillation - Coreg 25mg bid, no anticoagulation due to risk of falls. * Coronary artery disease - Coreg 25mg bid, Ramipril 5mg daily. * Chronic HFrEF - Coreg 25mg bid, Ramipril 5mg daily. * Diabetes Mellitus II - Glimepiride 1mg daily. * Nutrition - Glucerna Shake 120ml po tidcm. * Skin irritation - Calmoseptine topical bid. * Nutrition - MVI 1 tablet daily. * Tinea Corporis - Nystatin powder topical bid. Allergies/Procedures Done in Hospital Allergies No Known Allergies Allergy (Verified 02/24/24 12:06) Procedures: None Type of Care/Length of Stay Estimated LOS: More Than 30 Days Type of Care Needed: Intermediate Rehab Potential: Fair Prognosis: Fair Additional Orders/Day of Discharge Day of Discharge: 03/15/24 Dietary and Speech Recommendations Dietitian Recommendations/Changes: Will continue Regular Consistent CHO diet per res family preference Continue increased glucerna shake w/ medpass per res family preference Reassess need of increased ONS at medpass at time of follow up pending po intake/wt changes Speech Linguistic Eval Summary: Pt. presents w/ significant cognitive-linguistic impairment likely secondary from fall complicated by concussion. Pt. has deficits in orientation (Ox0), attn, auditory comprehension, verbal expression, memory, problem solving and executive function. Very difficult to complete BCAT assessment, pt. frequently stating I don't know in response to questions and needed encouragement to participate. Orientation: Pt. oriented to name only, difficulty recalling . Needed mod-max cueing to orient to her month, date and yr. Required Y/N's for recall of and age. Disoriented to current month, yr, city and situation. (09/16 on BCAT). Difficulty recalling personal information such as her address, unable to ID her daughter who was present for evaluation (sister vs. daughter). Attn: Unable to count backwards 10-[address] prompting. Sustained attn <1-3 mins. Auditory comprehension: Significant difficulty understanding -WH questions and following verbal commands. Needed frequent repetition and prompting provided by LATHE SET UP OPERATOR. Pt. stating 11 repeatedly when asked for the current month. Verbal Expression: Perseveration observed on previous topics. Difficulty w/ confrontation, responsive and generative naming subtests. Memory: Immediate, short-term, long-term and procedural memory impaired. Problem Solving: Severely impaired problem solving ability. Executive Function: Suspect severe deficits in executive function, unable to complete subtest on BCAT d/t pt. participation. Per daughter who was present for cognitive-linguistic evaluation, states that she was I w/ complex cognitive tasks including money management, medication management, etc. Follow Up Care Please Follow Up With: Kristian Whitlock MD Discharge Plan Admission Admit Date/Time: 02/27/24 14:20 Primary Reason for Your Visit: Debility. Attending Provider: Patrick Ellis Chi Primary Care Provider: Maria Teresa Pedroza Instructions Additional Instructions / Restrictions: Discharge 03/15/2024 to SNF, intermediate versus home with skilled HHC PT/OT/ST/SN/HERNANDEZ/SW. Discharge Orders/Prescriptions Prescriptions: New acetaminophen 500 mg Tablet 1,000 mg PO Q8 Qty: 0 0RF Continued glimepiride 1 mg tablet 1 mg PO DAILY [id number]-vit K-lut 8 mg iron-400 mcg-50 mcg tablet 1 tab PO DAILY carvedilol 25 mg tablet 25 mg PO BID Qty: 180 3RF ramipril 5 mg capsule 5 mg PO DAILY Qty: 90 3RF Discontinued Trimo-[place] Jelly 0.025-0.01 % gel 1 ea vaginal PRN PRN (Reason: IRRITATION) Referrals / Follow Up: Maria Teresa Pedroza DO [Primary Care Provider] - Disposition Disposition (needs filled in before D/C Order can be placed): NonSkilled NH/Intermed Care
[2024-03-13] MEDS: Acetaminophen 500 MG Tablet 1000 MG PO ×3 (05:48→20:59)
[2024-03-13 05:52] VITALS: PULSE 69; O2SAT 95
[2024-03-13 05:52] LABS: Absolute Lymphocyte Count 2.42 X10^3/uL (0.83-4.51); Absolute Neutrophil Count 2.4 X10^3/uL (2.0-7.7); Basophil# 0.02 X10^3/uL; Basophil% 0.4 % (0-1); Eosinophils% 3.8 % (0-5); Hematocrit 31.6 % (37-47); Hemoglobin 10.2 g/dL (12.0-15.0); Lymphocyte # 2.42 X10^3/ul (0.83-4.51); Lymphocyte % 45.8 % (19-41); Mean Corp Hgb Conc 32.3 g/dL (32-36); Mean Corpuscular Hgb 29.5 pg (27.0-32.0); Mean Corpuscular Volume 91.3 fL (81-99); Mean Platelet Vol. 9.4 fl (6.2-12.0); Monocyte# 0.26 X10^3/uL; Monocyte% 4.9 % (0-10); NRBC Flagged by Analyzer 0 % (0-5); Neutrophil # 2.36 X10^3/uL (2.7-7.7); Neutrophil % 44.7 % (47-70); Platelet Count 244 K/mm3 (150-450); RBC Distribution Width CV 13.4 % (11.6-14.6); RBC Distribution Width SD 44.6 fl (35.1-43.9); Red Blood Count 3.46 M/mm3 (4.2-5.4); White Blood Count 5.3 K/mm3 (4.4-11.0)
[2024-03-13 06:32] LABS: Bedside Glucose 98 mg/dL (74-106)
[2024-03-13 07:01] LABS: Anion Gap 4 (5-15); BUN 31 mg/dL (7-18); BUN/Creat Ratio 34.9 RATIO (10-20); Chloride 108 mmol/L (98-107); Creatinine, Serum 0.89 mg/dL (0.55-1.02); EST Glomerular Filtration Rate 64 mL/min (>60); Est Glom Filt Rate - Afr Amer 77 mL/min (>60); Estimated Creatinine Clearance 35.25 ml/min; Glucose 94 mg/dL (74-106); Potassium 4.7 mmol/L (3.5-5.1); Sodium Level 136 mmol/L (136-145)
[2024-03-13] MEDS: Multivitamins,Ther W-Minerals Tablet 1 TABLET PO (08:20)
[2024-03-13] MEDS: Carvedilol 25 MG Tablet PO ×2 (08:20→20:55)
[2024-03-13] MEDS: Glucerna Shake 120 ML LIQUID 240 ML PO ×3 (08:20→17:56)
[2024-03-13] MEDS: Glimepiride 2 MG Tablet PO (08:20)
[2024-03-13] MEDS: Ramipril 5 MG Capsule PO (08:20)
[2024-03-13] MEDS: Senna/Docusate Sodium 1 Tablet 2 TABLET PO ×2 (08:21→20:59)
[2024-03-13] MEDS: Lidocaine 5% Patch 1 PATCH TOPICAL (08:25)
[2024-03-13] MEDS: Menthol/Lanolin/Calamine/Znox 113 GM Tube 1 APPLIC TOPICAL ×2 (08:26→20:55)
[2024-03-13] MEDS: Nystatin Powder 15gm Bottle 1 APPLIC TOPICAL ×2 (08:27→20:53)
--- NOTE | 2024-03-13 09:07 | CASEMGMT ---
Addendum entered by Amelia Ramos 03/13/24 22:25: [facility] completd. Addendum entered by Amelia Ramos 03/13/24 10:56: [facility] and [facility] can accept, both have semi-private rooms available. SW phoned dtr, Sep, to update. [facility] SW [facility]. [facility], intermediate, medicaid pending Original Note: Social Work SW followed up with Lissa at [facility] on Medicaid status. Application was submitted and received a pending number on 03/12 #[id number]. SW will await outcomes from SNFs for placement. JESSICA Javier IN[employer]OR LANDSCAPE ARCHITECT
[2024-03-13 13:54] VITALS: BP 89/51; PULSE 55; RESP 16; TEMP 36.4; O2SAT 95
--- NOTE | 2024-03-13 14:34 | MDS.RN ---
Pain interview for [facility] completed.
[2024-03-13] MEDS: MELATONIN 10 MG TABLET PO (20:55)
[2024-03-13 21:00] VITALS: BP 137/54; PULSE 68; RESP 16
[2024-03-14 06:16] LABS: Bedside Glucose 76 mg/dL (74-106)
[2024-03-14] MEDS: Acetaminophen 500 MG Tablet 1000 MG PO ×3 (06:17→20:54)
[2024-03-14 08:44] VITALS: BP 121/46; PULSE 59; RESP 18; O2SAT 97
[2024-03-14] MEDS: Lidocaine 5% Patch 1 PATCH TOPICAL (08:45)
[2024-03-14] MEDS: Menthol/Lanolin/Calamine/Znox 113 GM Tube 1 APPLIC TOPICAL ×2 (08:45→20:50)
[2024-03-14] MEDS: Glucerna Shake 120 ML LIQUID 240 ML PO ×3 (08:46→17:36)
[2024-03-14] MEDS: Multivitamins,Ther W-Minerals Tablet 1 TABLET PO (08:46)
[2024-03-14] MEDS: Ramipril 5 MG Capsule PO (08:46)
[2024-03-14] MEDS: Glimepiride 2 MG Tablet PO (08:47)
[2024-03-14] MEDS: Carvedilol 25 MG Tablet PO ×2 (08:47→20:53)
[2024-03-14] MEDS: Senna/Docusate Sodium 1 Tablet 2 TABLET PO ×2 (08:47→20:54)
[2024-03-14] MEDS: Nystatin Powder 15gm Bottle 1 APPLIC TOPICAL ×2 (08:51→20:52)
[2024-03-14 09:09] LABS: Bedside Glucose 149 mg/dL (74-106)
[2024-03-14 20:00] VITALS: PULSE 66; O2SAT 92
[2024-03-14] MEDS: MELATONIN 10 MG TABLET PO (20:53)
[2024-03-14 20:59] VITALS: BP 150/58; PULSE 64
[2024-03-15 03:41] VITALS: PULSE 64; O2SAT 94
[2024-03-15] MEDS: Acetaminophen 500 MG Tablet 1000 MG PO (05:16)
[2024-03-15 06:05] LABS: Bedside Glucose 86 mg/dL (74-106)
[2024-03-15] MEDS: Ramipril 5 MG Capsule PO (07:56)
[2024-03-15] MEDS: Glucerna Shake 120 ML LIQUID 240 ML PO (07:56)
[2024-03-15] MEDS: Glimepiride 2 MG Tablet PO (07:56)
[2024-03-15] MEDS: Lidocaine 5% Patch 1 PATCH TOPICAL (07:57)
[2024-03-15] MEDS: Senna/Docusate Sodium 1 Tablet 2 TABLET PO (07:57)
[2024-03-15] MEDS: Carvedilol 25 MG Tablet PO (07:57)
[2024-03-15] MEDS: Multivitamins,Ther W-Minerals Tablet 1 TABLET PO (10:26)
[2024-03-15] MEDS: Menthol/Lanolin/Calamine/Znox 113 GM Tube 1 APPLIC TOPICAL (10:29)
[2024-03-15 12:17] VITALS: BP 102/56; PULSE 52; RESP 16; TEMP 36.8; O2SAT 95
== END 2024-03-15 11:30 | disposition intermediate care facility (04) | DRG 560 ==
PROVIDERS: Admitting Provider Family Medicine Geriatric Medicine; PCP Family Medicine; Visit Provider Family Medicine Geriatric Medicine
DX: S42.202D Unspecified fracture of upper end of left humerus, subsequent encounter for fracture with routine healing (principal); I42.8 Other cardiomyopathies; I50.22 Chronic systolic (congestive) heart failure; I27.21 Secondary pulmonary arterial hypertension; I11.0 Hypertensive heart disease with heart failure; B35.4 Tinea corporis; E11.9 Type 2 diabetes mellitus without complications; I48.91 Unspecified atrial fibrillation; E78.5 Hyperlipidemia, unspecified; H35.30 Unspecified macular degeneration; I25.10 Atherosclerotic heart disease of native coronary artery without angina pectoris; W19.XXXD Unspecified fall, subsequent encounter; S06.0XAD Concussion with loss of consciousness status unknown, subsequent encounter; S02.2XXD Fracture of nasal bones, subsequent encounter for fracture with routine healing; Z79.84 Long term (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 of oral hypoglycemic drugs; Z79.899 Other long term (current) drug therapy; Z95.810 Presence of automatic (implantable) cardiac defibrillator; Z23 Encounter for immunization
CPT/HCPCS: 36415; 73502; 73562; 73590; 80048; 82962; 85025; 87811; 90480; 92507; 92523; 92526; 97110; 97116; 97162; 97166; 97530; 97535; 97802; 91322; A4216

== ENCOUNTER → 2024-03-07 | Outpatient (CLI) | payer MEDICARE, SELFPAY ==
--- NOTE | 2024-03-07 11:17 | CT_ITS ---
STUDY: CT LEFT KNEE WITHOUT CONTRAST REASON FOR EXAM: Female, 88 years old. Left knee pain. RADIATION DOSAGE (If Supplied By Facility): CTDIvol = ( 15.35 ) mGy, DLP = ( 392.14 ) mGycm TECHNIQUE: Transaxial CT imaging of the knee was performed. Coronal and sagittal images were reformatted. Individualized dose optimization techniques were used for this CT. COMPARISON: Left knee radiographs dated 03/06/2024. FINDINGS: There is severe degenerative arthrosis of the medial femorotibial compartment with joint space narrowing, marginal osteophyte formation, and subchondral cyst formation. There is severe degenerative arthrosis of the lateral femorotibial compartment with joint space narrowing, marginal osteophyte formation, and subchondral cyst formation. There is severe degenerative arthrosis of the patellofemoral compartment with joint space narrowing, marginal osteophyte formation, and subchondral cyst formation. Normal proximal tibiofibular articulation. There is a small joint effusion. The quadriceps tendon is grossly normal. The patellar tendon is grossly normal. Normal Hoffa''s fat pad. There are atherosclerotic calcifications. CT/Extremity Lower without Contra IMPRESSION: Severe tricompartment degenerative arthrosis. Small joint effusion. Electronically Signed: Wayne Sawyer MD at 11:54 EDT ,
== END | disposition home or self-care (01) ==
LOC: CT 11:16
PROVIDERS: PCP Family Medicine; Referring Provider Family Medicine Geriatric Medicine; Visit Provider Family Medicine Geriatric Medicine
DX: M25.562 Pain in left knee (principal)
CPT/HCPCS: 73700

== ENCOUNTER → 2024-03-18 | Outpatient (REF) | payer MEDICARE, SELFPAY ==
[2024-03-18 10:00] LABS: Absolute Lymphocyte Count 2.69 X10^3/uL (0.83-4.51); Absolute Neutrophil Count 2.2 X10^3/uL (2.0-7.7); Basophil# 0.02 X10^3/uL; Basophil% 0.4 % (0-1); Eosinophil# 0.27 X10^3/uL; Eosinophils% 4.9 % (0-5); Hematocrit 32.7 % (37-47); Hemoglobin 10.5 g/dL (12.0-15.0); Lymphocyte # 2.69 X10^3/ul (0.83-4.51); Lymphocyte % 48.6 % (19-41); Mean Corp Hgb Conc 32.1 g/dL (32-36); Mean Corpuscular Hgb 29.9 pg (27.0-32.0); Mean Corpuscular Volume 93.2 fL (81-99); Mean Platelet Vol. 10.5 fl (6.2-12.0); Monocyte# 0.35 X10^3/uL; Monocyte% 6.3 % (0-10); NRBC Flagged by Analyzer 0 % (0-5); Neutrophil % 39.6 % (47-70); Platelet Count 195 K/mm3 (150-450); RBC Distribution Width CV 13.6 % (11.6-14.6); RBC Distribution Width SD 45.8 fl (35.1-43.9); Red Blood Count 3.51 M/mm3 (4.2-5.4); White Blood Count 5.5 K/mm3 (4.4-11.0)
[2024-03-18 10:43] LABS: ALB/GLOB Ratio 0.8 RATIO (0.9-2.4); AST(SGOT) 15 U/L (15-37); Alanine Aminotransfer ALT/SGPT 13 U/L (13-56); Albumin, Serum 2.9 g/dL (3.2-5.0); Alkaline Phosphatase 97 U/L (45-117); Anion Gap 6 (5-15); BUN 34 mg/dL (7-18); BUN/Creat Ratio 37.7 RATIO (10-20); Calcium,Total 9.9 mg/dL (8.5-10.1); Chloride 109 mmol/L (98-107); EST Glomerular Filtration Rate 63 mL/min (>60); Est Glom Filt Rate - Afr Amer 76 mL/min (>60); Globulin 3.5 g/dL (2.2-4.2); Glucose 83 mg/dL (74-106); Potassium 4.5 mmol/L (3.5-5.1); Protein, Total 6.4 g/dL (6.4-8.2); Sodium Level 138 mmol/L (136-145)
== END ==
LOC: OLS.WHLEAS 04:00
PROVIDERS: PCP Family Medicine; Referring Provider Internal Medicine; Visit Provider Internal Medicine
DX: E11.9 Type 2 diabetes mellitus without complications (principal)
CPT/HCPCS: 36415; 80053; 85025

== ENCOUNTER → 2024-03-26 | Outpatient (REF) | payer MEDICARE, SELFPAY ==
[2024-03-26 08:35] LABS: Absolute Lymphocyte Count 2.31 X10^3/uL (0.83-4.51); Basophil# 0.03 X10^3/uL; Basophil% 0.6 % (0-1); Eosinophil# 0.19 X10^3/uL; Eosinophils% 3.9 % (0-5); Hematocrit 29.3 % (37-47); Hemoglobin 9.5 g/dL (12.0-15.0); Lymphocyte # 2.31 X10^3/ul (0.83-4.51); Lymphocyte % 47.4 % (19-41); Mean Corp Hgb Conc 32.4 g/dL (32-36); Mean Corpuscular Hgb 29.9 pg (27.0-32.0); Mean Corpuscular Volume 92.1 fL (81-99); Mean Platelet Vol. 10.6 fl (6.2-12.0); Monocyte# 0.31 X10^3/uL; Monocyte% 6.4 % (0-10); NRBC Flagged by Analyzer 0 % (0-5); Neutrophil # 2.02 X10^3/uL (2.7-7.7); Neutrophil % 41.5 % (47-70); Platelet Count 148 K/mm3 (150-450); RBC Distribution Width CV 13.6 % (11.6-14.6); Red Blood Count 3.18 M/mm3 (4.2-5.4); White Blood Count 4.9 K/mm3 (4.4-11.0)
[2024-03-26 08:42] LABS: Vitamin B12 384 pg/mL (211-911)
[2024-03-26 11:18] LABS: Anion Gap 7 (5-15); BUN 30 mg/dL (7-18); BUN/Creat Ratio 37.1 RATIO (10-20); Calcium,Total 9.9 mg/dL (8.5-10.1); Chloride 110 mmol/L (98-107); Creatinine, Serum 0.81 mg/dL (0.55-1.02); EST Glomerular Filtration Rate 71 mL/min (>60); Est Glom Filt Rate - Afr Amer 86 mL/min (>60); Glucose 96 mg/dL (74-106); Potassium 4.1 mmol/L (3.5-5.1); Sodium Level 139 mmol/L (136-145)
== END ==
LOC: OLS.WHLEAS 05:00
PROVIDERS: PCP Family Medicine; Visit Provider Nurse Practitioner Adult Health
DX: I42.8 Other cardiomyopathies (principal); R53.81 Other malaise
CPT/HCPCS: 36415; 80048; 82607; 85025

== ENCOUNTER → 2024-04-09 | Outpatient (REF) | payer MEDICARE, SELFPAY ==
[2024-04-09 06:48] LABS: Absolute Lymphocyte Count 2.45 X10^3/uL (0.83-4.51); Absolute Neutrophil Count 1.7 X10^3/uL (2.0-7.7); Basophil# 0.02 X10^3/uL; Basophil% 0.4 % (0-1); Eosinophils% 4.3 % (0-5); Hematocrit 32.5 % (37-47); Hemoglobin 10.5 g/dL (12.0-15.0); Lymphocyte # 2.45 X10^3/ul (0.83-4.51); Lymphocyte % 53.1 % (19-41); Mean Corp Hgb Conc 32.3 g/dL (32-36); Mean Corpuscular Hgb 29.7 pg (27.0-32.0); Mean Corpuscular Volume 92.1 fL (81-99); Monocyte# 0.28 X10^3/uL; Monocyte% 6.1 % (0-10); NRBC Flagged by Analyzer 0 % (0-5); Neutrophil # 1.65 X10^3/uL (2.7-7.7); Neutrophil % 35.9 % (47-70); Platelet Count 176 K/mm3 (150-450); RBC Distribution Width CV 14.3 % (11.6-14.6); RBC Distribution Width SD 47.8 fl (35.1-43.9); Red Blood Count 3.53 M/mm3 (4.2-5.4); White Blood Count 4.6 K/mm3 (4.4-11.0)
[2024-04-09 06:54] LABS: Anion Gap 5 (5-15); BUN 22 mg/dL (7-18); BUN/Creat Ratio 25.9 RATIO (10-20); Calcium,Total 9.5 mg/dL (8.5-10.1); Chloride 109 mmol/L (98-107); Creatinine, Serum 0.85 mg/dL (0.55-1.02); EST Glomerular Filtration Rate 67 mL/min (>60); Est Glom Filt Rate - Afr Amer 81 mL/min (>60); Glucose 110 mg/dL (74-106); Potassium 4.1 mmol/L (3.5-5.1); Sodium Level 141 mmol/L (136-145)
[2024-04-09 07:58] LABS: Hemoglobin A1c 5.5 % (3.8-5.6)
== END ==
LOC: OLS.WHLEAS 04:00
PROVIDERS: PCP Family Medicine; Visit Provider Internal Medicine
DX: I42.8 Other cardiomyopathies (principal); E11.9 Type 2 diabetes mellitus without complications
CPT/HCPCS: 36415; 80048; 83036; 85025

== ENCOUNTER → 2024-05-15 05:00 | Outpatient (REF) | payer MEDICARE, SELFPAY ==
[2024-05-15 08:38] LABS: Absolute Lymphocyte Count 3.05 X10^3/uL (0.83-4.51); Absolute Neutrophil Count 1.7 X10^3/uL (2.0-7.7); Basophil# 0.03 X10^3/uL; Basophil% 0.6 % (0-1); Eosinophil# 0.26 X10^3/uL; Eosinophils% 4.9 % (0-5); Hematocrit 35.3 % (37-47); Hemoglobin 11.5 g/dL (12.0-15.0); Lymphocyte # 3.05 X10^3/ul (0.83-4.51); Lymphocyte % 57.1 % (19-41); Mean Corp Hgb Conc 32.6 g/dL (32-36); Mean Corpuscular Hgb 30.3 pg (27.0-32.0); Mean Corpuscular Volume 93.1 fL (81-99); Mean Platelet Vol. 10.8 fl (6.2-12.0); Monocyte# 0.31 X10^3/uL; Monocyte% 5.8 % (0-10); NRBC Flagged by Analyzer 0 % (0-5); Neutrophil # 1.68 X10^3/uL (2.7-7.7); Neutrophil % 31.4 % (47-70); Platelet Count 158 K/mm3 (150-450); RBC Distribution Width CV 13.4 % (11.6-14.6); Red Blood Count 3.79 M/mm3 (4.2-5.4); White Blood Count 5.3 K/mm3 (4.4-11.0)
[2024-05-15 08:56] LABS: Anion Gap 7 (5-15); BUN 25 mg/dL (7-18); BUN/Creat Ratio 28.2 RATIO (10-20); Calcium,Total 9.9 mg/dL (8.5-10.1); Chloride 109 mmol/L (98-107); Creatinine, Serum 0.89 mg/dL (0.55-1.02); EST Glomerular Filtration Rate 64 mL/min (>60); Est Glom Filt Rate - Afr Amer 77 mL/min (>60); Glucose 108 mg/dL (74-106); Potassium 4.2 mmol/L (3.5-5.1); Sodium Level 140 mmol/L (136-145)
== END ==
LOC: OLS.WHLEAS 05:00
PROVIDERS: PCP Family Medicine; Visit Provider Internal Medicine
DX: I10 Essential (primary) hypertension (principal)
CPT/HCPCS: 36415; 80048; 85025

== ENCOUNTER → 2024-05-21 | Outpatient (REF) | payer MEDICARE, SELFPAY ==
[2024-05-21 08:44] LABS: Absolute Lymphocyte Count 2.81 X10^3/uL (0.83-4.51); Absolute Neutrophil Count 1.5 X10^3/uL (2.0-7.7); Basophil# 0.03 X10^3/uL; Basophil% 0.6 % (0-1); Eosinophil# 0.23 X10^3/uL; Eosinophils% 4.7 % (0-5); Hematocrit 35.9 % (37-47); Hemoglobin 11.7 g/dL (12.0-15.0); Lymphocyte # 2.81 X10^3/ul (0.83-4.51); Lymphocyte % 57.5 % (19-41); Mean Corp Hgb Conc 32.6 g/dL (32-36); Mean Corpuscular Hgb 30.2 pg (27.0-32.0); Mean Corpuscular Volume 92.8 fL (81-99); Monocyte# 0.29 X10^3/uL; Monocyte% 5.9 % (0-10); NRBC Flagged by Analyzer 0 % (0-5); Neutrophil # 1.53 X10^3/uL (2.7-7.7); Neutrophil % 31.3 % (47-70); Platelet Count 163 K/mm3 (150-450); RBC Distribution Width CV 13.2 % (11.6-14.6); Red Blood Count 3.87 M/mm3 (4.2-5.4); White Blood Count 4.9 K/mm3 (4.4-11.0)
[2024-05-21 09:04] LABS: Anion Gap 5 (5-15); BUN 22 mg/dL (7-18); BUN/Creat Ratio 27.9 RATIO (10-20); Calcium,Total 10.1 mg/dL (8.5-10.1); Chloride 108 mmol/L (98-107); Creatinine, Serum 0.79 mg/dL (0.55-1.02); EST Glomerular Filtration Rate 73 mL/min (>60); Est Glom Filt Rate - Afr Amer 88 mL/min (>60); Glucose 126 mg/dL (74-106); Potassium 4.2 mmol/L (3.5-5.1); Sodium Level 138 mmol/L (136-145)
== END ==
LOC: OLS.WHLEAS 05:00
PROVIDERS: PCP Family Medicine; Visit Provider Internal Medicine
DX: M62.562 Muscle wasting and atrophy, not elsewhere classified, left lower leg (principal)
CPT/HCPCS: 36415; 80048; 85025

== ENCOUNTER → 2024-06-12 | Outpatient (REF) | payer MEDICARE, SELFPAY ==
[2024-06-12 07:47] LABS: Absolute Lymphocyte Count 3.08 X10^3/uL (0.83-4.51); Absolute Neutrophil Count 1.5 X10^3/uL (2.0-7.7); Basophil# 0.02 X10^3/uL; Basophil% 0.4 % (0-1); Eosinophil# 0.29 X10^3/uL; Eosinophils% 5.5 % (0-5); Hematocrit 35.9 % (37-47); Hemoglobin 11.8 g/dL (12.0-15.0); Lymphocyte # 3.08 X10^3/ul (0.83-4.51); Lymphocyte % 58.8 % (19-41); Mean Corp Hgb Conc 32.9 g/dL (32-36); Mean Corpuscular Hgb 30.7 pg (27.0-32.0); Mean Corpuscular Volume 93.5 fL (81-99); Monocyte# 0.34 X10^3/uL; Monocyte% 6.5 % (0-10); NRBC Flagged by Analyzer 0 % (0-5); Neutrophil # 1.51 X10^3/uL (2.7-7.7); Neutrophil % 28.8 % (47-70); Platelet Count 162 K/mm3 (150-450); RBC Distribution Width CV 12.7 % (11.6-14.6); RBC Distribution Width SD 43.4 fl (35.1-43.9); Red Blood Count 3.84 M/mm3 (4.2-5.4); White Blood Count 5.2 K/mm3 (4.4-11.0)
[2024-06-12 07:59] LABS: Hemoglobin A1c 6.3 % (3.8-5.6)
[2024-06-12 08:08] LABS: AST(SGOT) 11 U/L (15-37); Alanine Aminotransfer ALT/SGPT 16 U/L (13-56); Albumin, Serum 3.2 g/dL (3.2-5.0); Alkaline Phosphatase 77 U/L (45-117); Anion Gap 6 (5-15); BUN 23 mg/dL (7-18); BUN/Creat Ratio 28.1 RATIO (10-20); Calcium,Total 10.1 mg/dL (8.5-10.1); Chloride 109 mmol/L (98-107); Creatinine, Serum 0.82 mg/dL (0.55-1.02); EST Glomerular Filtration Rate 70 mL/min (>60); Est Glom Filt Rate - Afr Amer 85 mL/min (>60); Globulin 3.3 g/dL (2.2-4.2); Glucose 117 mg/dL (74-106); Potassium 4.4 mmol/L (3.5-5.1); Protein, Total 6.5 g/dL (6.4-8.2); Sodium Level 140 mmol/L (136-145)
== END ==
LOC: OLS.WHLEAS 05:00
PROVIDERS: PCP Family Medicine; Visit Provider Internal Medicine
DX: I10 Essential (primary) hypertension (principal); M62.562 Muscle wasting and atrophy, not elsewhere classified, left lower leg
CPT/HCPCS: 36415; 80048; 80076; 83036; 84443; 85025

== ENCOUNTER → 2024-06-18 | Outpatient (REF) | payer MEDICARE, SELFPAY ==
[2024-06-18 09:12] LABS: Absolute Lymphocyte Count 2.72 X10^3/uL (0.83-4.51); Absolute Neutrophil Count 2.2 X10^3/uL (2.0-7.7); Basophil# 0.03 X10^3/uL; Basophil% 0.5 % (0-1); Eosinophil# 0.27 X10^3/uL; Eosinophils% 4.9 % (0-5); Hematocrit 37.2 % (37-47); Hemoglobin 12.1 g/dL (12.0-15.0); Lymphocyte # 2.72 X10^3/ul (0.83-4.51); Lymphocyte % 49.1 % (19-41); Mean Corp Hgb Conc 32.5 g/dL (32-36); Mean Corpuscular Hgb 30.6 pg (27.0-32.0); Mean Corpuscular Volume 93.9 fL (81-99); Mean Platelet Vol. 10.9 fl (6.2-12.0); Monocyte# 0.33 X10^3/uL; NRBC Flagged by Analyzer 0 % (0-5); Neutrophil # 2.18 X10^3/uL (2.7-7.7); Neutrophil % 39.3 % (47-70); Platelet Count 144 K/mm3 (150-450); RBC Distribution Width CV 12.3 % (11.6-14.6); RBC Distribution Width SD 42.6 fl (35.1-43.9); Red Blood Count 3.96 M/mm3 (4.2-5.4); White Blood Count 5.5 K/mm3 (4.4-11.0)
[2024-06-18 09:39] LABS: Anion Gap 7 (5-15); BUN 23 mg/dL (7-18); BUN/Creat Ratio 29.4 RATIO (10-20); Calcium,Total 10.1 mg/dL (8.5-10.1); Chloride 108 mmol/L (98-107); Creatinine, Serum 0.78 mg/dL (0.55-1.02); EST Glomerular Filtration Rate 74 mL/min (>60); Est Glom Filt Rate - Afr Amer 89 mL/min (>60); Glucose 110 mg/dL (74-106); Potassium 4.5 mmol/L (3.5-5.1); Sodium Level 140 mmol/L (136-145)
== END ==
LOC: OLS.WHLEAS 05:00
PROVIDERS: PCP Family Medicine; Visit Provider Internal Medicine
DX: M62.562 Muscle wasting and atrophy, not elsewhere classified, left lower leg (principal)
CPT/HCPCS: 36415; 80048; 85025

== ENCOUNTER → 2024-07-17 05:00 | Outpatient (REF) | payer MEDICARE, MEDICAID, SELFPAY ==
[2024-07-17 07:02] LABS: Absolute Lymphocyte Count 2.69 X10^3/uL (0.83-4.51); Absolute Neutrophil Count 1.6 X10^3/uL (2.0-7.7); Basophil# 0.03 X10^3/uL; Basophil% 0.6 % (0-1); Eosinophils% 6.1 % (0-5); Hematocrit 35.5 % (37-47); Lymphocyte # 2.69 X10^3/ul (0.83-4.51); Lymphocyte % 54.5 % (19-41); Mean Corp Hgb Conc 33.8 g/dL (32-36); Mean Corpuscular Hgb 31.5 pg (27.0-32.0); Mean Corpuscular Volume 93.2 fL (81-99); Mean Platelet Vol. 10.6 fl (6.2-12.0); Monocyte% 6.1 % (0-10); NRBC Flagged by Analyzer 0 % (0-5); Neutrophil # 1.62 X10^3/uL (2.7-7.7); Neutrophil % 32.7 % (47-70); Platelet Count 148 K/mm3 (150-450); RBC Distribution Width CV 12.3 % (11.6-14.6); RBC Distribution Width SD 42.1 fl (35.1-43.9); Red Blood Count 3.81 M/mm3 (4.2-5.4); White Blood Count 4.9 K/mm3 (4.4-11.0)
[2024-07-17 07:12] LABS: Anion Gap 3 (5-15); BUN 25 mg/dL (7-18); BUN/Creat Ratio 29.6 RATIO (10-20); Calcium,Total 9.8 mg/dL (8.5-10.1); Chloride 111 mmol/L (98-107); Creatinine, Serum 0.85 mg/dL (0.55-1.02); EST Glomerular Filtration Rate 67 mL/min (>60); Est Glom Filt Rate - Afr Amer 81 mL/min (>60); Glucose 122 mg/dL (74-106); Potassium 4.3 mmol/L (3.5-5.1); Sodium Level 141 mmol/L (136-145)
== END ==
LOC: OLS.WHLEAS 05:00
PROVIDERS: PCP Family Medicine; Visit Provider Internal Medicine
DX: I10 Essential (primary) hypertension (principal)
CPT/HCPCS: 36415; 80048; 85025

== ENCOUNTER → 2024-07-23 | Outpatient (REF) | payer MEDICARE, MEDICAID, SELFPAY ==
[2024-07-23 08:14] LABS: Absolute Lymphocyte Count 3.07 X10^3/uL (0.83-4.51); Absolute Neutrophil Count 1.6 X10^3/uL (2.0-7.7); Basophil# 0.03 X10^3/uL; Basophil% 0.6 % (0-1); Eosinophil# 0.32 X10^3/uL; Hematocrit 35.1 % (37-47); Hemoglobin 11.4 g/dL (12.0-15.0); Lymphocyte # 3.07 X10^3/ul (0.83-4.51); Lymphocyte % 57.7 % (19-41); Mean Corp Hgb Conc 32.5 g/dL (32-36); Mean Corpuscular Hgb 30.6 pg (27.0-32.0); Mean Corpuscular Volume 94.1 fL (81-99); Mean Platelet Vol. 11.1 fl (6.2-12.0); Monocyte# 0.32 X10^3/uL; NRBC Flagged by Analyzer 0 % (0-5); Neutrophil # 1.58 X10^3/uL (2.7-7.7); Neutrophil % 29.7 % (47-70); Platelet Count 148 K/mm3 (150-450); RBC Distribution Width CV 12.3 % (11.6-14.6); RBC Distribution Width SD 42.5 fl (35.1-43.9); Red Blood Count 3.73 M/mm3 (4.2-5.4); White Blood Count 5.3 K/mm3 (4.4-11.0)
[2024-07-23 08:38] LABS: Anion Gap 5 (5-15); BUN 24 mg/dL (7-18); BUN/Creat Ratio 32.7 RATIO (10-20); Calcium,Total 9.7 mg/dL (8.5-10.1); Chloride 112 mmol/L (98-107); Creatinine, Serum 0.74 mg/dL (0.55-1.02); EST Glomerular Filtration Rate 79 mL/min (>60); Est Glom Filt Rate - Afr Amer 96 mL/min (>60); Glucose 112 mg/dL (74-106); Potassium 4.3 mmol/L (3.5-5.1); Sodium Level 140 mmol/L (136-145)
== END ==
LOC: OLS.WHLEAS 05:00
PROVIDERS: PCP Family Medicine; Visit Provider Internal Medicine
DX: M62.562 Muscle wasting and atrophy, not elsewhere classified, left lower leg (principal); I25.10 Atherosclerotic heart disease of native coronary artery without angina pectoris
CPT/HCPCS: 36415; 80048; 85025

== ENCOUNTER → 2024-08-09 | Outpatient (REF) | payer MEDICARE, MEDICAID, SELFPAY ==
[2024-08-09 10:52] LABS: Color, Urine Yellow (Yellow); Glucose, Dipstick Normal (Normal); Ketone-Dipstick 15 mg/dl (Negative); Leukocyte Esterase-Dipstick 500 /ul (Negative); Nitrite-Dipstick Negative (Negative); Occult Blood-Urine 150 /ul (Negative); Protein-Dipstick 100 mg/dl (Negative); Urine Bilirubin Dipstick Negative (Negative); Urine Clarity Cloudy (Clear); Urine Urobilinogen 1 mg/dl (Normal)
== END ==
LOC: OLS.WHLEAS 05:00
PROVIDERS: PCP Family Medicine; Visit Provider Internal Medicine
DX: R53.81 Other malaise (principal); I11.0 Hypertensive heart disease with heart failure; I50.22 Chronic systolic (congestive) heart failure; E11.9 Type 2 diabetes mellitus without complications
CPT/HCPCS: 81002; 87086; 87088; 87186

== ENCOUNTER 2024-08-10 18:31 | Inpatient (IN) | payer MEDICARE, MEDICAID, SELFPAY ==
[2024-08-10] VITALS (9 sets, daily range): BP systolic 118–127; BP diastolic 48–93; PULSE 66–76; RESP 16–20; TEMP 36.8–36.9; O2SAT 93–95; BMI 27.4
[2024-08-10] MEDS: 0.9% Normal Saline (1000mL) 1,000 ML 1000 ML IV (19:31)
[2024-08-10 19:50] LABS: Absolute Lymphocyte Count 0.65 X10^3/uL (0.83-4.51); Absolute Neutrophil Count 7.3 X10^3/uL (2.0-7.7); Basophil# 0.04 X10^3/uL; Basophil% 0.5 % (0-1); Eosinophil# 0.16 X10^3/uL; Eosinophils% 1.9 % (0-5); Hematocrit 35.3 % (37-47); Lymphocyte # 0.65 X10^3/ul (0.83-4.51); Lymphocyte % 7.6 % (19-41); Mean Corpuscular Hgb 31.6 pg (27.0-32.0); Mean Corpuscular Volume 92.9 fL (81-99); Monocyte# 0.35 X10^3/uL; Monocyte% 4.1 % (0-10); NRBC Flagged by Analyzer 0 % (0-5); Neutrophil % 85.3 % (47-70); Platelet Count 113 K/mm3 (150-450); RBC Distribution Width CV 12.3 % (11.6-14.6); White Blood Count 8.6 K/mm3 (4.4-11.0)
[2024-08-10 20:01] LABS: Color, Urine Straw (Yellow); Glucose, Dipstick Normal (Normal); Ketone-Dipstick Negative (Negative); Leukocyte Esterase-Dipstick 500 /ul (Negative); Nitrite-Dipstick Negative (Negative); Occult Blood-Urine 50 /ul (Negative); Protein-Dipstick 100 mg/dl (Negative); Specific Gravity, Urine 1.015 (1.002-1.030); Urine Bilirubin Dipstick Negative (Negative); Urine Clarity Cloudy (Clear); Urine Urobilinogen 1 mg/dl (Normal)
[2024-08-10 20:13] LABS: Bacteria 2+ /hpf (None Seen); Mucous, Urine 2+ /hpf (<or=2+); Red Blood Cells-Urine 10-25 SEEN /hpf (0-5); Squamous Epithelial Cells - UA 5-10 SEEN /hpf (5-10); White Blood Cells 50-100 SEEN /hpf (0-5); White Cell Cast 0-5 SEEN /lpf (None Seen)
[2024-08-10] MEDS: Ceftriaxone 2 GM in 0.9% Normal Saline (50mL MB+) 50 ML IV (20:27)
[2024-08-10 20:37] LABS: ALB/GLOB Ratio 0.8 RATIO (0.9-2.4); AST(SGOT) 43 U/L (15-37); Alanine Aminotransfer ALT/SGPT 45 U/L (13-56); Albumin, Serum 2.8 g/dL (3.2-5.0); Alkaline Phosphatase 149 U/L (45-117); Anion Gap 9 (5-15); BUN 43 mg/dL (7-18); BUN/Creat Ratio 31.9 RATIO (10-20); Chloride 101 mmol/L (98-107); Creatinine, Serum 1.35 mg/dL (0.55-1.02); EST Glomerular Filtration Rate 39 mL/min (>60); Est Glom Filt Rate - Afr Amer 48 mL/min (>60); Estimated Creatinine Clearance 23.54 ml/min; Globulin 3.7 g/dL (2.2-4.2); Glucose 191 mg/dL (74-106); Lipase 16 U/L (13-75); Potassium 4.5 mmol/L (3.5-5.1); Protein, Total 6.5 g/dL (6.4-8.2); Sodium Level 132 mmol/L (136-145); Troponin-I HS 639 pg/mL (3.0-54.0)
[2024-08-10 20:56] LABS: Lactic Acid 2.8 mmol/L (0.4-1.9)
[2024-08-10 22:16] LABS: Troponin-I HS 599 pg/mL (3.0-54.0)
[2024-08-10 23:46] LABS: Reflex Lactate? Y
[2024-08-11] VITALS (17 sets, daily range): BP systolic 122–154; BP diastolic 55–86; PULSE 67–87; RESP 18–29; TEMP 36.3–36.9; O2SAT 92–97; BMI 27.2
[2024-08-11 00:38] LABS: Lactic Acid 1.3 mmol/L (0.4-1.9)
[2024-08-11 05:09] LABS: Hematocrit 32.5 % (37-47); Hemoglobin 11.1 g/dL (12.0-15.0); Mean Corp Hgb Conc 34.2 g/dL (32-36); Mean Corpuscular Hgb 31.6 pg (27.0-32.0); Mean Corpuscular Volume 92.6 fL (81-99); Mean Platelet Vol. 11.1 fl (6.2-12.0); Platelet Count 109 K/mm3 (150-450); RBC Distribution Width CV 12.6 % (11.6-14.6); RBC Distribution Width SD 42.8 fl (35.1-43.9); Red Blood Count 3.51 M/mm3 (4.2-5.4); White Blood Count 11.6 K/mm3 (4.4-11.0)
[2024-08-11 05:34] LABS: Anion Gap 9 (5-15); BUN 37 mg/dL (7-18); BUN/Creat Ratio 35.2 RATIO (10-20); Calcium,Total 9.6 mg/dL (8.5-10.1); Chloride 105 mmol/L (98-107); Creatinine, Serum 1.05 mg/dL (0.55-1.02); EST Glomerular Filtration Rate 52 mL/min (>60); Est Glom Filt Rate - Afr Amer 63 mL/min (>60); Estimated Creatinine Clearance 30.17 ml/min; Glucose 163 mg/dL (74-106); Sodium Level 134 mmol/L (136-145)
[2024-08-11] MEDS: Heparin Injection (Vial) 5,000 UNIT/ML VIAL 5000 UNIT SC ×3 (05:53→21:06)
[2024-08-11] MEDS: Ceftriaxone 2 GM in 0.9% Normal Saline (50mL MB+) 50 ML IV (21:05)
[2024-08-12 04:14] VITALS: BP 138/76; PULSE 78; RESP 18; TEMP 37.6; O2SAT 94
[2024-08-12] MEDS: Heparin Injection (Vial) 5,000 UNIT/ML VIAL 5000 UNIT SC ×2 (06:23→14:17)
[2024-08-12 06:43] LABS: Absolute Lymphocyte Count 1.78 X10^3/uL (0.83-4.51); Absolute Neutrophil Count 8.4 X10^3/uL (2.0-7.7); Basophil# 0.05 X10^3/uL; Basophil% 0.4 % (0-1); Eosinophil# 0.02 X10^3/uL; Eosinophils% 0.2 % (0-5); Hematocrit 34.6 % (37-47); Hemoglobin 11.8 g/dL (12.0-15.0); Lymphocyte # 1.78 X10^3/ul (0.83-4.51); Lymphocyte % 15.4 % (19-41); Mean Corp Hgb Conc 34.1 g/dL (32-36); Mean Corpuscular Hgb 31.3 pg (27.0-32.0); Mean Corpuscular Volume 91.8 fL (81-99); Mean Platelet Vol. 11.4 fl (6.2-12.0); Monocyte# 1.17 X10^3/uL; Monocyte% 10.1 % (0-10); NRBC Flagged by Analyzer 0 % (0-5); Neutrophil # 8.36 X10^3/uL (2.7-7.7); Neutrophil % 72.4 % (47-70); Platelet Count 143 K/mm3 (150-450); RBC Distribution Width CV 12.5 % (11.6-14.6); Red Blood Count 3.77 M/mm3 (4.2-5.4); White Blood Count 11.6 K/mm3 (4.4-11.0)
[2024-08-12 07:03] LABS: Anion Gap 7 (5-15); BUN 34 mg/dL (7-18); BUN/Creat Ratio 39.1 RATIO (10-20); Chloride 106 mmol/L (98-107); Creatinine, Serum 0.87 mg/dL (0.55-1.02); EST Glomerular Filtration Rate 65 mL/min (>60); Est Glom Filt Rate - Afr Amer 79 mL/min (>60); Estimated Creatinine Clearance 36.42 ml/min; Glucose 159 mg/dL (74-106); Potassium 3.9 mmol/L (3.5-5.1); Sodium Level 134 mmol/L (136-145)
[2024-08-12 09:00] VITALS: BP 129/68; PULSE 71; RESP 16; TEMP 36.7; O2SAT 95
== END 2024-08-12 17:47 | disposition home or self-care (01) | DRG 689 ==
LOC: ED 19:31 → ICU 08-11 00:08 → PCU 08-11 15:46
PROVIDERS: Family Medicine; Admitting Provider Hospitalist; Emergency Provider Surgery; PCP Family Medicine; Referring Provider Hospitalist; Visit Provider Internal Medicine
DX: N10 Acute pyelonephritis (principal); I21.A1 Myocardial infarction type 2; G93.41 Metabolic encephalopathy; I42.8 Other cardiomyopathies; E87.1 Hypo-osmolality and hyponatremia; I50.22 Chronic systolic (congestive) heart failure; E11.65 Type 2 diabetes mellitus with hyperglycemia; N17.9 Acute kidney failure, unspecified; B96.20 Unspecified Escherichia coli [E. coli] as the cause of diseases classified elsewhere; I11.0 Hypertensive heart disease with heart failure; E78.5 Hyperlipidemia, unspecified; I25.10 Atherosclerotic heart disease of native coronary artery without angina pectoris; E86.0 Dehydration; R53.81 Other malaise; N30.90 Cystitis, unspecified without hematuria; Z79.899 Other long term (current) drug therapy; Z11.52 Encounter for screening for COVID-19; Z95.810 Presence of automatic (implantable) cardiac defibrillator
CPT/HCPCS: 36415; 71046; 74177; 80048; 80053; 81001; 81002; 83605; 83690; 84484; 85025; 85027; 87086; 87088; 87186; 87631; 93005; 97162; 97166; 97535; 99285; J7040; Q9967; A4216; J0696

== ENCOUNTER → 2024-08-29 15:00 | Outpatient (REF) | payer MEDICARE, MEDICAID, SELFPAY ==
[2024-08-29 08:58] LABS: Color, Urine Yellow (Yellow); Glucose, Dipstick Normal (Normal); Ketone-Dipstick Negative (Negative); Leukocyte Esterase-Dipstick 100 /ul (Negative); Nitrite-Dipstick Negative (Negative); Occult Blood-Urine 25 /ul (Negative); Protein-Dipstick 30 mg/dl (Negative); Urine Bilirubin Dipstick Negative (Negative); Urine Clarity Sl. Cloudy (Clear); Urine Urobilinogen Normal (Normal); Urine pH 6.5 (5.0 - 8.0)
[2024-08-29 09:28] LABS: Bacteria 0 SEEN /hpf (None Seen); Mucous, Urine 0 SEEN /hpf (<or=2+); Red Blood Cells-Urine 0 SEEN /hpf (0-5); Squamous Epithelial Cells - UA 0 SEEN /hpf (5-10)
[2024-08-29 09:29] LABS: White Blood Cells 0-5 SEEN /hpf (0-5)
== END ==
LOC: OLS.WHLEAS 15:00
PROVIDERS: PCP Family Medicine; Visit Provider Internal Medicine
DX: R41.0 Disorientation, unspecified (principal)
CPT/HCPCS: 81001; 87077; 87086; 87088

== ENCOUNTER → 2024-09-13 05:00 | Outpatient (REF) | payer MEDICARE, MEDICAID, SELFPAY ==
[2024-09-13 09:34] LABS: Absolute Neutrophil Count 5.7 X10^3/uL (2.0-7.7); Basophil# 0.02 X10^3/uL; Basophil% 0.2 % (0-1); Eosinophil# 0.06 X10^3/uL; Eosinophils% 0.7 % (0-5); Hematocrit 36.5 % (37-47); Hemoglobin 11.7 g/dL (12.0-15.0); Lymphocyte % 23.8 % (19-41); Mean Corp Hgb Conc 32.1 g/dL (32-36); Mean Corpuscular Hgb 29.5 pg (27.0-32.0); Mean Corpuscular Volume 92.2 fL (81-99); Mean Platelet Vol. 10.4 fl (6.2-12.0); Monocyte# 0.59 X10^3/uL; NRBC Flagged by Analyzer 0 % (0-5); Neutrophil % 68.1 % (47-70); Platelet Count 194 K/mm3 (150-450); RBC Distribution Width CV 12.3 % (11.6-14.6); RBC Distribution Width SD 41.8 fl (35.1-43.9); Red Blood Count 3.96 M/mm3 (4.2-5.4); White Blood Count 8.4 K/mm3 (4.4-11.0)
[2024-09-13 09:56] LABS: AST(SGOT) 15 U/L (15-37); Alanine Aminotransfer ALT/SGPT 10 U/L (13-56); Alkaline Phosphatase 73 U/L (45-117); Anion Gap 8 (5-15); BUN 19 mg/dL (7-18); BUN/Creat Ratio 23.4 RATIO (10-20); Bilirubin, Direct 0.17 mg/dL (0.00-0.30); Chloride 105 mmol/L (98-107); Creatinine, Serum 0.81 mg/dL (0.55-1.02); EST Glomerular Filtration Rate 71 mL/min (>60); Est Glom Filt Rate - Afr Amer 85 mL/min (>60); Globulin 3.9 g/dL (2.2-4.2); Glucose 151 mg/dL (74-106); Potassium 4.2 mmol/L (3.5-5.1); Protein, Total 6.9 g/dL (6.4-8.2); Sodium Level 136 mmol/L (136-145); Thyroid Stim Hormone (TSH) 0.559 uIU/mL (0.358-3.740)
[2024-09-13 10:07] LABS: Hemoglobin A1c 6.5 % (3.8-5.6)
== END ==
LOC: OLS.WHLEAS 05:00
PROVIDERS: PCP Family Medicine; Visit Provider Internal Medicine
DX: I50.22 Chronic systolic (congestive) heart failure (principal)
CPT/HCPCS: 36415; 80048; 80076; 83036; 84443; 85025

== ENCOUNTER → 2024-10-16 04:00 | Outpatient (REF) | payer MEDICARE, MEDICAID, SELFPAY ==
[2024-10-16 06:25] LABS: Absolute Neutrophil Count 1.6 X10^3/uL (2.0-7.7); Basophil# 0.02 X10^3/uL; Basophil% 0.4 % (0-1); Eosinophil# 0.29 X10^3/uL; Eosinophils% 5.8 % (0-5); Hematocrit 35.2 % (37-47); Hemoglobin 11.4 g/dL (12.0-15.0); Mean Corp Hgb Conc 32.4 g/dL (32-36); Mean Corpuscular Hgb 29.8 pg (27.0-32.0); Mean Corpuscular Volume 92.1 fL (81-99); Mean Platelet Vol. 10.5 fl (6.2-12.0); NRBC Flagged by Analyzer 0 % (0-5); Neutrophil # 1.58 X10^3/uL (2.7-7.7); Neutrophil % 31.6 % (47-70); Platelet Count 177 K/mm3 (150-450); RBC Distribution Width CV 12.8 % (11.6-14.6); RBC Distribution Width SD 42.5 fl (35.1-43.9); Red Blood Count 3.82 M/mm3 (4.2-5.4)
[2024-10-16 06:52] LABS: Anion Gap 6 (5-15); BUN 17 mg/dL (7-18); BUN/Creat Ratio 18.6 RATIO (10-20); Calcium,Total 10.1 mg/dL (8.5-10.1); Chloride 108 mmol/L (98-107); Creatinine, Serum 0.92 mg/dL (0.55-1.02); EST Glomerular Filtration Rate 61 mL/min (>60); Est Glom Filt Rate - Afr Amer 74 mL/min (>60); Glucose 122 mg/dL (74-106); Potassium 4.1 mmol/L (3.5-5.1); Sodium Level 139 mmol/L (136-145)
== END ==
LOC: OLS.WHLEAS 04:00
PROVIDERS: PCP Family Medicine; Referring Provider Internal Medicine; Visit Provider Internal Medicine
DX: I10 Essential (primary) hypertension (principal); S42.202D Unspecified fracture of upper end of left humerus, subsequent encounter for fracture with routine healing; S06.0XAD Concussion with loss of consciousness status unknown, subsequent encounter; S02.2XXD Fracture of nasal bones, subsequent encounter for fracture with routine healing
CPT/HCPCS: 36415; 80048; 85025

== ENCOUNTER → 2024-10-22 05:00 | Outpatient (REF) | payer MEDICARE, MEDICAID, SELFPAY ==
[2024-10-22 08:44] LABS: Anion Gap 5 (5-15); BUN 18 mg/dL (7-18); BUN/Creat Ratio 21.6 RATIO (10-20); Calcium,Total 10.3 mg/dL (8.5-10.1); Chloride 105 mmol/L (98-107); Creatinine, Serum 0.84 mg/dL (0.55-1.02); EST Glomerular Filtration Rate 68 mL/min (>60); Est Glom Filt Rate - Afr Amer 83 mL/min (>60); Glucose 130 mg/dL (74-106); Potassium 4.4 mmol/L (3.5-5.1); Sodium Level 138 mmol/L (136-145)
[2024-10-22 09:03] LABS: Absolute Lymphocyte Count 2.22 X10^3/uL (0.83-4.51); Absolute Neutrophil Count 3.4 X10^3/uL (2.0-7.7); Basophil# 0.03 X10^3/uL; Basophil% 0.5 % (0-1); Eosinophil# 0.19 X10^3/uL; Hematocrit 36.5 % (37-47); Hemoglobin 11.7 g/dL (12.0-15.0); Lymphocyte # 2.22 X10^3/ul (0.83-4.51); Lymphocyte % 35.4 % (19-41); Mean Corp Hgb Conc 32.1 g/dL (32-36); Mean Corpuscular Hgb 29.6 pg (27.0-32.0); Mean Corpuscular Volume 92.4 fL (81-99); Mean Platelet Vol. 10.7 fl (6.2-12.0); Monocyte# 0.41 X10^3/uL; Monocyte% 6.5 % (0-10); NRBC Flagged by Analyzer 0 % (0-5); Neutrophil # 3.41 X10^3/uL (2.7-7.7); Neutrophil % 54.3 % (47-70); Platelet Count 176 K/mm3 (150-450); RBC Distribution Width CV 12.7 % (11.6-14.6); RBC Distribution Width SD 42.8 fl (35.1-43.9); Red Blood Count 3.95 M/mm3 (4.2-5.4); White Blood Count 6.3 K/mm3 (4.4-11.0)
== END ==
LOC: OLS.WHLEAS 05:00
PROVIDERS: PCP Family Medicine; Visit Provider Internal Medicine
DX: S42.202D Unspecified fracture of upper end of left humerus, subsequent encounter for fracture with routine healing (principal); S06.0XAD Concussion with loss of consciousness status unknown, subsequent encounter; S02.2XXD Fracture of nasal bones, subsequent encounter for fracture with routine healing; M62.562 Muscle wasting and atrophy, not elsewhere classified, left lower leg
CPT/HCPCS: 36415; 80048; 85025

== ENCOUNTER → 2024-10-25 04:38 | Outpatient (REF) | payer MEDICARE, MEDICAID, SELFPAY ==
[2024-10-25 08:23] LABS: Bacteria 0 SEEN /hpf (None Seen); Mucous, Urine 0 SEEN /hpf (<or=2+)
[2024-10-25 08:45] LABS: Color, Urine Yellow (Yellow); Glucose, Dipstick Normal (Normal); Ketone-Dipstick Negative (Negative); Leukocyte Esterase-Dipstick 500 /ul (Negative); Nitrite-Dipstick Negative (Negative); Occult Blood-Urine 25 /ul (Negative); Protein-Dipstick 30 mg/dl (Negative); Specific Gravity, Urine 1.015 (1.002-1.030); Urine Bilirubin Dipstick Negative (Negative); Urine Clarity Sl. Cloudy (Clear); Urine Urobilinogen Normal (Normal)
[2024-10-25 09:03] LABS: Squamous Epithelial Cells - UA 0-5 SEEN /hpf (5-10); White Blood Cells 10-25 SEEN /hpf (0-5)
[2024-10-25 14:34] LABS: Red Blood Cells-Urine 0 SEEN /hpf (0-5)
== END ==
LOC: OLS.WHLEAS 04:38
PROVIDERS: PCP Family Medicine; Visit Provider Internal Medicine
DX: I50.22 Chronic systolic (congestive) heart failure (principal); N17.9 Acute kidney failure, unspecified; R26.2 Difficulty in walking, not elsewhere classified; Z74.1 Need for assistance with personal care; R48.8 Other symbolic dysfunctions
CPT/HCPCS: 81001; 87086; 87088; 87186

== ENCOUNTER → 2024-11-13 | Outpatient (REF) | payer MEDICARE, MEDICAID, SELFPAY ==
[2024-11-13 07:55] LABS: Absolute Neutrophil Count 1.4 X10^3/uL (2.0-7.7); Basophil# 0.03 X10^3/uL; Basophil% 0.6 % (0-1); Eosinophil# 0.31 X10^3/uL; Eosinophils% 6.1 % (0-5); Hematocrit 35.5 % (37-47); Hemoglobin 11.9 g/dL (12.0-15.0); Lymphocyte % 58.8 % (19-41); Mean Corp Hgb Conc 33.5 g/dL (32-36); Mean Corpuscular Hgb 30.6 pg (27.0-32.0); Mean Corpuscular Volume 91.3 fL (81-99); Mean Platelet Vol. 10.4 fl (6.2-12.0); Monocyte# 0.33 X10^3/uL; Monocyte% 6.5 % (0-10); NRBC Flagged by Analyzer 0 % (0-5); Neutrophil # 1.42 X10^3/uL (2.7-7.7); Neutrophil % 27.8 % (47-70); Platelet Count 166 K/mm3 (150-450); RBC Distribution Width CV 12.9 % (11.6-14.6); RBC Distribution Width SD 42.2 fl (35.1-43.9); Red Blood Count 3.89 M/mm3 (4.2-5.4); White Blood Count 5.1 K/mm3 (4.4-11.0)
[2024-11-13 08:15] LABS: Anion Gap 10 (5-15); BUN 20 mg/dL (4-19); BUN/Creat Ratio 20.1 RATIO (10-20); Calcium,Total 10.1 mg/dL (7.6-11.0); Carbon Dioxide 22.9 mmol/L (21.0-32.0); Chloride 106 mmol/L (98-108); EST Glomerular Filtration Rate 54 (>60); Glucose 122 mg/dL (70-99); Potassium 4.6 mmol/L (3.3-5.1); Sodium Level 139 mmol/L (133-145)
== END ==
LOC: OLS.WHLEAS 05:00
PROVIDERS: PCP Family Medicine; Visit Provider Internal Medicine
DX: I10 Essential (primary) hypertension (principal)
CPT/HCPCS: 36415; 80048; 85025

== ENCOUNTER → 2024-11-19 | Outpatient (REF) | payer MEDICARE, MEDICAID, SELFPAY ==
[2024-11-19 07:19] LABS: Absolute Lymphocyte Count 3.02 X10^3/uL (0.83-4.51); Absolute Neutrophil Count 1.9 X10^3/uL (2.0-7.7); Basophil# 0.03 X10^3/uL; Basophil% 0.5 % (0-1); Eosinophil# 0.35 X10^3/uL; Eosinophils% 6.3 % (0-5); Hematocrit 36.5 % (37-47); Lymphocyte # 3.02 X10^3/ul (0.83-4.51); Mean Corp Hgb Conc 32.9 g/dL (32-36); Mean Corpuscular Volume 91.3 fL (81-99); Mean Platelet Vol. 10.7 fl (6.2-12.0); Monocyte# 0.31 X10^3/uL; Monocyte% 5.5 % (0-10); NRBC Flagged by Analyzer 0 % (0-5); Neutrophil # 1.87 X10^3/uL (2.7-7.7); Neutrophil % 33.5 % (47-70); Platelet Count 157 K/mm3 (150-450); RBC Distribution Width CV 13.1 % (11.6-14.6); RBC Distribution Width SD 43.2 fl (35.1-43.9); White Blood Count 5.6 K/mm3 (4.4-11.0)
[2024-11-20 00:56] LABS: Anion Gap 11 (5-15); BUN 19 mg/dL (4-19); BUN/Creat Ratio 22.5 RATIO (10-20); Calcium,Total 10.3 mg/dL (7.6-11.0); Carbon Dioxide 21.7 mmol/L (21.0-32.0); Chloride 106 mmol/L (98-108); Creatinine, Serum 0.85 mg/dL (0.70-1.20); EST Glomerular Filtration Rate 65 (>60); Glucose 119 mg/dL (70-99); Potassium 4.5 mmol/L (3.3-5.1); Sodium Level 139 mmol/L (133-145)
== END ==
LOC: OLS.WHLEAS 04:00
PROVIDERS: PCP Family Medicine; Referring Provider Internal Medicine; Visit Provider Internal Medicine
DX: M62.562 Muscle wasting and atrophy, not elsewhere classified, left lower leg (principal); S42.202A Unspecified fracture of upper end of left humerus, initial encounter for closed fracture
CPT/HCPCS: 36415; 80048; 85025

== ENCOUNTER → 2024-12-11 | Outpatient (REF) | payer MEDICARE, MEDICAID, SELFPAY ==
[2024-12-11 09:35] LABS: Absolute Neutrophil Count 2.9 X10^3/uL (2.0-7.7); Basophil# 0.03 X10^3/uL; Basophil% 0.5 % (0-1); Eosinophil# 0.27 X10^3/uL; Eosinophils% 4.3 % (0-5); Hematocrit 36.2 % (37-47); Hemoglobin 12.3 g/dL (12.0-15.0); Lymphocyte % 42.8 % (19-41); Mean Corpuscular Hgb 30.5 pg (27.0-32.0); Mean Corpuscular Volume 89.8 fL (81-99); Mean Platelet Vol. 10.7 fl (6.2-12.0); Monocyte# 0.39 X10^3/uL; Monocyte% 6.2 % (0-10); NRBC Flagged by Analyzer 0 % (0-5); Neutrophil # 2.91 X10^3/uL (2.7-7.7); Platelet Count 152 K/mm3 (150-450); RBC Distribution Width CV 12.7 % (11.6-14.6); RBC Distribution Width SD 41.4 fl (35.1-43.9); Red Blood Count 4.03 M/mm3 (4.2-5.4); White Blood Count 6.3 K/mm3 (4.4-11.0)
[2024-12-11 09:49] LABS: Hemoglobin A1c 6.8 % (<=5.6)
[2024-12-11 09:50] LABS: Anion Gap 10 (5-15); BUN 22 mg/dL (4-19); BUN/Creat Ratio 22.1 RATIO (10-20); Calcium,Total 10.2 mg/dL (7.6-11.0); Carbon Dioxide 23.2 mmol/L (21.0-32.0); Chloride 107 mmol/L (98-108); Creatinine, Serum 0.98 mg/dL (0.70-1.20); EST Glomerular Filtration Rate 55 (>60); Glucose 126 mg/dL (70-99); Potassium 4.6 mmol/L (3.3-5.1); Sodium Level 139 mmol/L (133-145)
== END ==
LOC: OLS.WHLEAS 05:00
PROVIDERS: PCP Family Medicine; Visit Provider Internal Medicine
DX: I10 Essential (primary) hypertension (principal); S42.202D Unspecified fracture of upper end of left humerus, subsequent encounter for fracture with routine healing; M62.562 Muscle wasting and atrophy, not elsewhere classified, left lower leg; E11.9 Type 2 diabetes mellitus without complications
CPT/HCPCS: 36415; 80048; 83036; 84443; 85025

== ENCOUNTER → 2024-12-17 | Outpatient (REF) | payer MEDICARE, MEDICAID, SELFPAY ==
[2024-12-17 08:35] LABS: Absolute Lymphocyte Count 2.56 X10^3/uL (0.83-4.51); Absolute Neutrophil Count 1.8 X10^3/uL (2.0-7.7); Basophil# 0.03 X10^3/uL; Basophil% 0.6 % (0-1); Eosinophil# 0.22 X10^3/uL; Eosinophils% 4.5 % (0-5); Hematocrit 35.6 % (37-47); Hemoglobin 11.9 g/dL (12.0-15.0); Lymphocyte # 2.56 X10^3/ul (0.83-4.51); Mean Corp Hgb Conc 33.4 g/dL (32-36); Mean Corpuscular Hgb 30.5 pg (27.0-32.0); Mean Corpuscular Volume 91.3 fL (81-99); Mean Platelet Vol. 10.5 fl (6.2-12.0); Monocyte# 0.34 X10^3/uL; Monocyte% 6.9 % (0-10); NRBC Flagged by Analyzer 0 % (0-5); Neutrophil # 1.75 X10^3/uL (2.7-7.7); Neutrophil % 35.6 % (47-70); Platelet Count 184 K/mm3 (150-450); RBC Distribution Width CV 12.6 % (11.6-14.6); RBC Distribution Width SD 41.5 fl (35.1-43.9); White Blood Count 4.9 K/mm3 (4.4-11.0)
[2024-12-17 09:17] LABS: Anion Gap 11 (5-15); BUN 16 mg/dL (4-19); Calcium,Total 10.1 mg/dL (7.6-11.0); Chloride 106 mmol/L (98-108); Creatinine, Serum 0.78 mg/dL (0.70-1.20); EST Glomerular Filtration Rate 73 (>60); Glucose 125 mg/dL (70-99); Potassium 4.7 mmol/L (3.3-5.1); Sodium Level 139 mmol/L (133-145)
== END ==
LOC: OLS.WHLEAS 05:00
PROVIDERS: PCP Family Medicine; Visit Provider Internal Medicine
DX: M62.562 Muscle wasting and atrophy, not elsewhere classified, left lower leg (principal); S42.202A Unspecified fracture of upper end of left humerus, initial encounter for closed fracture; S02.2XXA Fracture of nasal bones, initial encounter for closed fracture
CPT/HCPCS: 36415; 80048; 85025

== ENCOUNTER → 2025-01-15 | Outpatient (REF) | payer MEDICARE, MEDICAID, SELFPAY ==
[2025-01-15 09:15] LABS: Absolute Lymphocyte Count 2.95 X10^3/uL (0.83-4.51); Absolute Neutrophil Count 2.5 X10^3/uL (2.0-7.7); Basophil# 0.03 X10^3/uL; Basophil% 0.5 % (0-1); Eosinophil# 0.22 X10^3/uL; Eosinophils% 3.7 % (0-5); Hematocrit 34.7 % (37-47); Hemoglobin 11.3 g/dL (12.0-15.0); Lymphocyte # 2.95 X10^3/ul (0.83-4.51); Lymphocyte % 49.4 % (19-41); Mean Corp Hgb Conc 32.6 g/dL (32-36); Mean Corpuscular Hgb 29.7 pg (27.0-32.0); Mean Corpuscular Volume 91.3 fL (81-99); Mean Platelet Vol. 9.4 fl (6.2-12.0); NRBC Flagged by Analyzer 0 % (0-5); Neutrophil # 2.45 X10^3/uL (2.7-7.7); Neutrophil % 41.1 % (47-70); Platelet Count 246 K/mm3 (150-450); RBC Distribution Width CV 12.5 % (11.6-14.6); RBC Distribution Width SD 41.5 fl (35.1-43.9)
[2025-01-15 09:27] LABS: Anion Gap 9 (5-15); BUN 18 mg/dL (4-19); BUN/Creat Ratio 22.4 RATIO (10-20); Calcium,Total 10.1 mg/dL (7.6-11.0); Carbon Dioxide 24.5 mmol/L (21.0-32.0); Chloride 106 mmol/L (98-108); Creatinine, Serum 0.81 mg/dL (0.70-1.20); EST Glomerular Filtration Rate 69 (>60); Glucose 135 mg/dL (70-99); Potassium 4.4 mmol/L (3.3-5.1); Sodium Level 139 mmol/L (133-145)
== END ==
LOC: OLS.WHLEAS 05:00
PROVIDERS: PCP Family Medicine; Visit Provider Internal Medicine
DX: I10 Essential (primary) hypertension (principal)
CPT/HCPCS: 36415; 80048; 85025

== ENCOUNTER → 2025-01-21 | Outpatient (REF) | payer MEDICARE, MEDICAID, SELFPAY ==
[2025-01-21 07:54] LABS: Absolute Lymphocyte Count 2.66 X10^3/uL (0.83-4.51); Absolute Neutrophil Count 3.3 X10^3/uL (2.0-7.7); Basophil# 0.04 X10^3/uL; Basophil% 0.6 % (0-1); Eosinophil# 0.23 X10^3/uL; Eosinophils% 3.4 % (0-5); Hematocrit 35.1 % (37-47); Hemoglobin 11.5 g/dL (12.0-15.0); Lymphocyte # 2.66 X10^3/ul (0.83-4.51); Lymphocyte % 39.7 % (19-41); Mean Corp Hgb Conc 32.8 g/dL (32-36); Mean Corpuscular Hgb 30.3 pg (27.0-32.0); Mean Corpuscular Volume 92.6 fL (81-99); Mean Platelet Vol. 10.4 fl (6.2-12.0); NRBC Flagged by Analyzer 0 % (0-5); Neutrophil # 3.34 X10^3/uL (2.7-7.7); Neutrophil % 49.9 % (47-70); Platelet Count 203 K/mm3 (150-450); RBC Distribution Width CV 12.9 % (11.6-14.6); RBC Distribution Width SD 43.7 fl (35.1-43.9); Red Blood Count 3.79 M/mm3 (4.2-5.4); White Blood Count 6.7 K/mm3 (4.4-11.0)
[2025-01-21 08:06] LABS: Anion Gap 9 (5-15); BUN 22 mg/dL (4-19); BUN/Creat Ratio 27.8 RATIO (10-20); Calcium,Total 10.2 mg/dL (7.6-11.0); Carbon Dioxide 23.8 mmol/L (21.0-32.0); Chloride 107 mmol/L (98-108); Creatinine, Serum 0.79 mg/dL (0.70-1.20); EST Glomerular Filtration Rate 71 (>60); Glucose 131 mg/dL (70-99); Potassium 4.3 mmol/L (3.3-5.1); Sodium Level 139 mmol/L (133-145)
== END ==
LOC: OLS.WHLEAS 05:00
PROVIDERS: PCP Family Medicine; Visit Provider Internal Medicine
DX: M62.562 Muscle wasting and atrophy, not elsewhere classified, left lower leg (principal); S42.202A Unspecified fracture of upper end of left humerus, initial encounter for closed fracture
CPT/HCPCS: 36415; 80048; 85025

== ENCOUNTER → 2025-02-18 05:00 | Outpatient (REF) | payer MEDICARE, MEDICAID, SELFPAY ==
--- OUTSIDE RECORDS SUMMARY | 2025-02-18 04:04 | XMS RPT_ITS | CCD ---
Author Organization [facility] Inform ion Partnership [facility] Care Team Providers Care Magnetic Tester Name Role Phone Dr. Maria Teresa Pedroza Primary Care Provider Dr. Maria Teresa Pedroza Referring Provider Honey Willis Attending Provider Unavailable Dr. Mukul Lunsford Attending Provider Dr. Elgin Orozco MD Primary Care Provider Rachel Dalton MD Attending Provider Unavailmitali Zeng NP-CJulieta Attending Provider Dr. Rachel Dalton MD Attending Provider Rachel Dalton MD Referring Provider UnavailDr. Mukul Topete MD Attending Provider Dr. Maria Teresa Pedroza DO Referring Provider Dr. Elgin Orozco MD Primary Care Provider Rachel Dalton MD Attending Provider Unavailmitali Zeng NP-CJulieta Attending Provider Dr. Elgin Orozco MD Primary Care Provider Rachel Dalton MD Attending Provider UnavailDr. Rachel Osborne MD Attending Provider Maria Teresa Pedroza Primary Care Unavailable Rachel Adams Attending UnavailMaria Teresa Voss Primary Care Unavailable Rachel Adams Attending UnavailCecil De La Garza Referring Unavailable Cecil Knight Consulting Unavailable Cecil Knight Admitting Unavailable Rivera Dodge Attending Unavailable [facility] Primary Care Unavailable Laureano Ross Consulting Unavailable Malys, Maria Teresa Primary Care Unavailable Caleb, Patrick Chi Admitting Unavailable Caleb, Patrick Chi Attending Unavailable Oleghe OLS, Efewongbe Attending Unavailabl e [facility]available Oleghe OLS, Efewongbe Attending Unavailabl e [facility] Unavailable Oleghe OLS, Efewongbe Attending Unavailabl e Oleghe OLS, Efewongbe Referring Unavailabl e [facility] Unavailable Malys, Maria Teresa Primary Care Unavailable Oleghe OLS, Efewongbe Attending Unavailabl e Malys, Maria Teresa Primary Care Unavailable Oleghe OLS, Efewongbe Attending Unavailabl e Oleghe OLS, Efewongbe Referring Unavailabl e Oleghe OLS, Efewongbe Attending Unavailabl e [facility] Unavailable Oleghe OLS, Efewongbe Attending Unavailabl e [facility] Unavailable Oleghe OLS, Efewongbe Attending Unavailabl e [facility] Unavailable [facility] Primary Care Unavailable Oleghe OLS, Efewongbe Attending Unavailabl e [facility] Unavailable Oleghe OLS, Efewongbe Attending Unavailabl e [facility], Maria Teresa Primary Care Unavailable Oleghe OLS, Efewongbe Attending Unavailabl e [facility], Maria Teresa Primary Care Unavailable Oleghe OLS, Efewongbe Attending Unavailabl e [facility], Maria Teresa Primary Care Unavailable Olelibiae MARIA M, Efewongbe Attending UnavailCecil De La Garza Referring Unavailable Cecil Knight Attending Unavailable Cecil Knight Consulting Unavailable Cecil Knight Admitting Unavailable [facility] Primary Care Unavailable Laureano Ross Attending Unavailable Laureano Ross Consulting Unavailable Malys, Maria Teresa Primary Care Unavailable Bourgeois, Achintya Admitting Unavailable Kristian Whitlock Attending Unavailable Kamlesh, Kristian Consulting Unavailable Bourgeois, Achintya Consulting Unavailable Laureano Ross Consulting Unavailable [facility] Unavailable Julieta Zeng NP Attending Unavailable Malys, Maria Teresa Primary Care Unavailable Bourgeois, Achintya Admitting Unavailable Kamlesh, Kristian Consulting Unavailable Laureano Ross Attending Unavailable Bourgeois, Achintya Consulting Unavailable [facility] Unavailable [place] MERCERIZING RANGE FEEDER, Julieta Attending Unavailable [place] MERCERIZING RANGE FEEDER, Julieta Attending Unavailable [facility] Unavailable Ran[facility], [facility] Unavailable Oleghe, Efewongbe Attending Unavailable Malys, Maria Teresa Referring Unavailable Isatu, [place] Attending Unavailable [facility], [facility] Unavailable Isatu, [place] Attending Unavailable [facility], [facility] Unavailable Malys, Maria Teresa Primary Care Unavailable Malys, Maria Teresa Referring Unavailable Mollison, Kristian Attending Unavailable Malys, Maria Teresa Primary Care Unavailable Isatu, Mukul Attending Unavailable Oleghe, Efewongbe Attending Unavailable [facility], [facility] Unavailable [place] MERCERIZING RANGE FEEDER, Julieta Attending Unavailable [place], [place] Primary Care Unavailable Oleghe, Efewongbe Attending Unavailable [place], [facility] [place] Primary Care Unavailable Isatu, [place] Attending Unavailable [facility], [facility] Unavailable Malys, Maria Teresa Primary Care Unavailable Oleghe, Efewongbe Attending Unavailable Malys, Maria Teresa Primary Care Unavailable Malys, Maria Teresa Referring Unavailable Mollison, Kristian Attending Unavailable Malys, Maria Teresa Primary Care Unavailable Malys, Maria Teresa Referring Unavailable Honey Willis Attending Unavailable Malys, Maria Teresa Referring Unavailable Isatu, Mukul Attending Unavailable [facility], [facility] Unavailable Rivera Dodge Attending Unavailable Rivera Dodge Consulting Unavailable Malys, Maria Teresa Primary Care Unavailable Mollison, Kristian Attending Unavailable Malys, Maria Teresa Primary Care Unavailable Bourgeois, Alishaintya Attending Unavailable Malys, Maria Teresa Primary Care Unavailable Isatu, Mukul Attending Unavailable Malys, Maria Teresa Primary Care Unavailable [place] MERCERIZING RANGE FEEDER, Julieta Attending Unavailable Malys, Maria Teresa Primary Care Unavailable Isatu, Mukul Attending Unavailable Malys, Maria Teresa Primary Care Unavailable Oleghe, Efewongbe Attending Unavailable Malys, Maria Teresa Primary Care Unavailable Malys, Maria Teresa Referring Unavailable Wilmer Portillo NP Attending Unavailable Oleghe OLS, Efewongbe Attending Unavailabl e [place], [facility], [place] Primary Care Unavailable Oleghe OLS, Efewongbe Attending Unavailabl e [place], [facility] Unavailable Malys, Maria Teresa Primary Care Unavailable Caleb, Patrick Chi Referring Unavailable Caleb, Patrick Chi Attending Unavailable Malys, Maria Teresa Primary Care Unavailable Tickton OLS, Julieta Attending Unavailable Tylerlibiae MARIA M Jamelongbe Attending [facility] Unavailable Tylerlibiacharles FRANZ Efeanongbe Attending [facility] Care Unavailable Olelibiae OLS Efewongbe Attending [facility] Care Unavailable Olelibiae MARIA M Efewongbe Attending [facility] Unavailable Malys, Maria Teresa Primary Care Unavailable Sha FRANZ Efewongbe Referring Chris FRANZ Efewongbe Attending Laureano Bone Attending Unavailable TylerlibiaJamel Bergerongbe Attending Lilli [facility] Unavailable Malys, Maria Teresa Primary Care Unavailable Tylerlibiacharles FRANZ Efeanongdino Attending Lilli soto Medications Current Medications Medication Drug Class(es) Dates Sig (Normalized) Sig (Original) acetaminophen 500 mg oral tablet (8 sources) Start: 08-11-2024 take 2 tablets by mouth twice daily Acetaminophen 500 mg tablet Active 1000 mg PO TWICE A DAY August 11, 2024 1:00am Start: 03-12-2024 End: 05-09-2024 take 2 tablets by mouth every eight hours Acetaminophen 500 mg Tablet Discontinued 1000 mg PO EVERY 8 HOURS 0 March 12, 2024 12:00am May 09, 2024 10:54am lisinopril 20 mg oral tablet (4 sources) Angiotensin Converting Enzyme Inhibitor Start: 03-25-2024 take 1 tablet by mouth at bedtime Lisinopril 20 mg tablet Active 20 mg PO AT BEDTIME March 25, 2024 12:00am Wackihdz-Fit-Ooyp-F a-Vit K-Lut (1 source) Start: 12-29-2020 Shohoseq-Ggv-M sourav- Fa-Vit K-Lut Active 1 EACH PO DAILY December 29, 2020 12:00am Lsfxtygw-Imm-Bohr-F a-Vit K-Lut 8 mg iron-400 mcg-50 mcg tablet (4 sources) Start: 02-19-2024 take 1 tablet by mouth once daily Luobjrwm-Nwf-Qpmt- Fa-Vit K-Lut 8 mg iron-400 mcg-50 mcg tablet Active 1 {tbl} PO DAILY February 19, 2024 11:06am polyethylene glycol 3350 85333 mg powder for oral solution (4 sources) Osmotic Laxative Start: 10-17-2024 Polyethylene Glycol 3350 17 gram/dose powder Active g PO DAILY October 17, 2024 1:00am Completed/Discontinued Medications Medication Drug Class(es) Dates Sig (Normalized) Sig (Original) apixaban 5 mg oral tablet (20 sources) Factor Xa Inhibitor Start: 06-19-2018 End: 08-23-2023 take 1 tablet by mouth twice daily Apixaban (Eliquis) 5 mg tablet Discontinued 5 mg PO TWICE A DAY 60 September 22, 2022 5:27pm August 23, 2023 4:42pm aspirin 81 mg delayed release oral tablet (5 sources) Platelet Aggregation Inhibitor, Nonsteroidal Anti-inflammatory Drug Start: 03-30-2017 End: 05-07-2020 take 1 tablet by mouth once daily Aspirin 81 MG tablet Discontinued 81 mg PO DAILY@0800 March 30, 2017 12:00am May 07, 2020 9:58am carvedilol 25 mg oral tablet (20 sources) alpha-Adrenergic Megan, beta-Adrenergic Megan Start: 11-07-2017 End: 01-16-2023 take 1 tablet by mouth twice daily Carvedilol 25 mg tablet Discontinued 25 mg PO TWICE A DAY 180 October 19, 2021 9:21am January 16, 2023 3:12pm Start: 03-30-2017 End: 11-07-2017 take 1 tablet by mouth once daily Carvedilol 25 MG tablet Discontinued 25 mg PO DAILY 180 October 30, 2017 5:10pm November 07, 2017 11:14am ciprofloxacin 250 mg oral tablet (4 sources) Quinolone Antimicrobial Start: 08-12-2024 End: 10-17-2024 take 1 tablet by mouth twice daily Ciprofloxacin Hcl (Cipro) 250 mg tablet Discontinued 250 mg PO TWICE A DAY 10 August 12, 2024 1:00am October 17, 2024 11:48am docusate sodium 100 mg oral capsule (5 sources) Start: 04-07-2017 End: 01-10-2018 take 1 capsule by mouth twice daily as needed for constipation Docusate Sodium 100 MG capsule Discontinued 100 mg PO TWICE DAILY NEEDED as needed for Constipation 60 April 07, 2017 12:00am January 10, 2018 10:24am oxyquinoline sulfate 0.89111 mg/mg / sodium dodecyl sulfate 0.0001 mg/mg vaginal gel (4 sources) Start: 02-24-2024 End: 03-12-2024 Oxyquinoline-Sod. Lauryl Sulfat (Trimo-[place]regon Jelly) 0.025-0.01 % gel Discontinued 1 NMA VAGINAL NEEDED as needed for IRRITATION February 24, 2024 12:00am March 12, 2024 8:46pm furosemide 40 mg oral tablet (20 sources) Loop Diuretic Start: 03-30-2017 End: 08-16-2022 take 1 tablet by mouth once daily Furosemide 40 mg tablet Discontinued 40 mg PO DAILY August 29, 2019 12:25pm November 11, 2020 2:49pm glimepiride 1 mg oral tablet (9 sources) Sulfonylurea Start: 02-19-2024 End: 05-09-2024 take 1 tablet by mouth once daily Glimepiride 1 mg tablet Discontinued 1 mg PO DAILY February 19, 2024 12:00am May 09, 2024 10:54am Start: 01-10-2018 End: 08-17-2023 take 1 tablet by mouth once daily Glimepiride 1 mg tablet Discontinued 1 mg PO DAILY 14 January 10, 2018 12:00am August 17, 2023 12:02pm glyBURIDE 2.5 mg oral tablet (5 sources) Sulfonylurea Start: 04-07-2017 End: 01-10-2018 take 1.25 mg by mouth once daily Glyburide 2.5 MG tablet Discontinued 1.25 mg PO DAILY@0800 April 07, 2017 12:00am January 10, 2018 10:23am Start: 04-07-2017 End: 01-10-2018 take 1.25 mg by mouth once daily Glyburide Discontinued 1.25 MG PO DAILY@0800 April 07, 2017 12:00am January 10, 2018 10:23am ibuprofen 600 mg oral tablet (5 sources) Nonsteroidal Anti-inflammatory Drug Start: 04-07-2017 End: 05-07-2020 take 1 tablet by mouth three times daily as needed for pain Ibuprofen 600 MG tablet Discontinued 600 mg PO THREE TIMES A DAY as needed for Pain April 07, 2017 1:33pm May 07, 2020 9:58am Tqhhcmex-Hvd-Lrhd-F a-Vit K-Lut 1 EACH tablet (4 sources) Start: 12-29-2020 End: 02-19-2024 take 1 tablet by mouth once daily Noaxbspp-Yig-Ofot -Fa-Vit K-Lut 1 EACH tablet Discontinued 1 NMA PO DAILY December 29, 2020 12:00am February 19, 2024 11:06am oxyCODONE hydrochloride 5 mg oral tablet (10 sources) Opioid Agonist Start: 04-07-2017 End: 01-10-2018 take 1 tablet by mouth every six hours as needed for pain Oxycodone 5 MG tablet Discontinued 5 mg PO EVERY 6 HOURS NEEDED as needed for Pain 12 April 07, 2017 12:00am January 10, 2018 10:23am Start: 04-07-2017 End: 01-10-2018 take 5-10 mg by mouth every four hours as needed for pain Oxycodone 5 MG tablet Discontinued 5 - 10 mg PO EVERY 4 HOURS NEEDED as needed for Mod-Severe Pain (4-1010) April 07, 2017 12:00am January 10, 2018 10:23am pantoprazole 40 mg delayed release oral tablet (5 sources) Proton Pump Inhibitor Start: 01-01-2021 End: 08-10-2021 take 1 tablet by mouth twice daily Pantoprazole 40 MG tablet Discontinued 40 mg PO TWICE A DAY 60 January 01, 2021 12:00am August 10, 2021 4:46pm ramipril 5 mg oral capsule (20 sources) Angiotensin Converting Enzyme Inhibitor Start: 03-23-2023 End: 03-25-2024 take 1 capsule by mouth once daily Ramipril 5 mg capsule Discontinued 5 mg PO DAILY March 23, 2023 1:01pm March 25, 2024 3:11pm Start: 03-30-2017 End: 03-23-2023 take 1 capsule by mouth once daily Ramipril 2.5 mg capsule Discontinued 2.5 mg PO DAILY November 28, 2022 1:52pm March 23, 2023 1:02pm sucralfate 1000 mg oral tablet (5 sources) Aluminum Complex Start: 01-01-2021 End: 08-10-2021 take 1 tablet by mouth 1 hour(s) before mealtime Sucralfate 1 GM tablet Discontinued 1 g PO ONE HOURS BEFORE MEALS & BED January 01, 2021 12:00am August 10, 2021 4:46pm Problems Active Problems Problem Classification Problem Date Documented Date Episodic/Chronic Acute myocardial infarction (1 source) Subsequent non-ST elevation (NSTEMI) myocardial infarction; Translations: [Subsequent non-ST elevation (NSTEMI) myocardial infarction] Onset: 09-20-2024 Chronic Acute posthemorrhagic anemia (5 sources) Acute posthemorrhagic anemia; Translations: [Acute posthemorrhagic anemia] 08-10-2021 Episodic Cardiac dysrhythmias (14 sources) Ventricular tachycardia; Translations: [Ventricular tachycardia] Onset: 10-24-2024 05-06-2020 Chronic Cardiac dysrhythmias (5 sources) Sinus tachycardia; Translations: [Tachycardia, unspecified] 08-10-2021 Episodic Complication of device; implant or graft (10 sources) Thrombosis; Translations: [Thrombosis due to other internal prosthetic devices, implants and grafts, initial encounter] 11-11-2020 Episodic Comment on above: RV pacemaker lead Conduction disorders (20 sources) Past history of procedure; Translations: [Presence of automatic (implantable) cardiac defibrillator] Onset: 01-31-2013 03-20-2019 Chronic Congestive heart failure; nonhypertensive (16 sources) Chronic systolic heart failure; Translations: [Chronic systolic (congestive) heart failure] Onset: 09-20-2024 03-20-2019 Chronic Coronary atherosclerosis and other heart disease (9 sources) Coronary atherosclerosis; Translations: [Atherosclerotic heart disease of [place] coronary artery without angina pectoris] 12-29-2020 Chronic Diabetes mellitus without complication (5 sources) Diabetes mellitus; Translations: [Type 2 diabetes mellitus without complications] Onset: 05-09-2024 02-27-2024 Chronic Disorders of lipid metabolism (5 sources) Dyslipidemia; Translations: [Hyperlipidemia, unspecified] 01-01-2018 Chronic Essential hypertension (12 sources) Essential hypertension; Translations: [Essential (primary) hypertension] Onset: 10-23-2024 03-20-2019 Chronic Fluid and electrolyte disorders (5 sources) Lactic acidosis; Translations: [Lactic acidosis] 08-10-2021 Episodic Fracture of upper limb (15 sources) Unspecified fracture of upper end of left humerus, initial encounter for closed fracture; Translations: [Fracture of proximal end of left humerus] Onset: 03-19-2024 03-23-2024 Episodic Intracranial injury (4 sources) Concussion injury of body structure; Translations: [Concussion] 03-23-2024 Episodic Other aftercare (5 sources) Long-term current use of anticoagulant; Translations: [v[employer] (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 of anticoagulants] 12-29-2020 Episodic Other connective tissue disease (2 sources) Muscle wasting and atrophy, not elsewhere classified, left lower leg; Translations: [Muscle wasting and atrophy, not elsewhere classified, left lower leg] Onset: 11-05-2024 Episodic Elli-; endo-; and myocarditis; cardiomyopathy (except that caused by tuberculosis or sexually transmitted disease) (16 sources) Cardiomyopathy; Translations: [Other cardiomyopathies] Onset: 10-24-2024 12-29-2020 Chronic Pulmonary heart disease (5 sources) Pulmonary arterial hypertension; Translations: [Secondary pulmonary arterial hypertension] 05-06-2020 Chronic Retinal detachments; defects; vascular occlusion; and retinopathy (4 sources) Degenerative disorder of macula ; Translations: [Unspecified macular degeneration] 02-27-2024 Chronic Septicemia (except in labor) (1 source) Sepsis, unspecified organism; Translations: [Sepsis, unspecified organism] Onset: 01-20-2025 Episodic Shock (5 sources) Hemorrhagic shock; Translations: [Other shock] 08-10-2021 Episodic Skull and face fractures (6 sources) Fractured nasal bones; Translations: [Fracture of nasal bones, initial encounter for closed fracture] Onset: 10-23-2024 03-23-2024 Episodic Unclassified (2 sources) Concussion with loss of consciousness status unknown, subsequent encounter; Translations: [Concussion with loss of consciousness status unknown, subsequent encounter] Onset: 10-23-2024 Past or Other Problems Problem Classification Problem Date Documented Da te Episodic/Chronic Acute and unspecified renal failure (5 sources) Acute renal failure syndrome; Translations: [Acute kidney failure, unspecified] Onset: 5 08-20-2024 Episodic Gastrointestinal hemorrhage (5 sources) Upper gastrointestinal bleeding; Translations: [Gastrointestinal hemorrhage, unspecified] Onset: 1 08-10-2021 Episodic Malaise and fatigue (5 sources) Asthenia; Translations: [Other malaise] Onset: 5 02-27-2024 Episodic Other aftercare (1 source) Encounter for other orthopedic aftercare; Translations: [Encounter for other orthopedic aftercare] Onset: 4 Episodic Other connective tissue disease (1 source) Muscle wasting and atrophy, not elsewhere classified, right lower leg; Translations: [Muscle wasting and atrophy, not elsewhere classified, right lower leg] Onset: 5 Episodic Other non-traumatic joint disorders (1 source) Pain in left shoulder; Translations: [Pain in left shoulder] Onset: 4 Episodic Other non-traumatic joint disorders (1 source) Pain in left knee; Translations: [Pain in left knee] Onset: 4 Episodic Residual codes; unclassified (1 source) Disorientation, unspecified; Translations: [Disorientation, unspecified] Onset: 4 Episodic Superficial injury; contusion (5 sources) Injury of forehead; Translations: [Contusion of other part of head, initial encounter] Onset: 4 02-24-2024 Episodic Urinary tract infections (5 sources) Pyelonephritis; Translations: [Tubulo-interstitial nephritis, not specified as acute or chronic] Onset: 4 08-20-2024 Episodic Results Test Name Value Interpretation Reference Range Facility Absolute lymphocyte countOrd ered By: Rachel Dalton on 01-21-2025 Lymphocytes Auto (Unsp spec) [#/Vol] 2.66 10*3/uL 0.83-4.51 [facility] Absolute neutrophil countOrd ered By: Rachel Dalton on 01-21-2025 Neutrophils (Bld) [#/Vol] 3.3 10*3/uL 2.0-7.7 [facility] Anion gap in Serum or Plasma Ordered By: Rachel Dalton on 01-21-2025 Anion gap [Moles/Vol] 9 mmol/L - [facility] Automated lymphocyte count a s percentage of total leukocytesOrdered By: Rachel Dalton on 01-21-2025 Lymphocytes/100 WBC Auto (Unsp spec) 39.7 % [facility] BUN/creatinine ratioOrdered By: jose miguel Dalton on 01-21-2025 Urea nitrogen/Creatinine [Mass ratio] 27.8 mg/mg High 10- [facility] Basophil percentageOrdered B y: Rachel Dalton on 01-21-2025 Basophils/100 WBC (Bld) 0.6 % 0-1 [facility] Carbon dioxide, total [Moles /volume] in Central venous bloodOrdered By: Rachel Dalton on 01-21-2025 CO2 [Moles/Vol] 23.8 mmol/L 21.0-32.0 [facility] Chloride assayOrdered By: Chase Dalton on 01-21-2025 Chloride [Moles/Vol] 107 mmol/L 98-108 [facility] Eosinophil percentageOrdered By: Rachel Dalton on 01-21-2025 Eosinophils/100 WBC (Bld) 3.4 % 0-5 [facility] Erythrocyte distribution wid th ratioOrdered By: Rachel Dalton on 01-21-2025 Erythrocyte distribution width (RBC) [Ratio] 12.9 % 11.6-14.6 [facility] Erythrocyte distribution wid th standard deviationOrdered By: jose miguel Dalton on 01-21-2025 Erythrocyte distribution width (RBC) [Ratio] 43.7 fl 35.1-43.9 [facility] Glomerular filtration rate ( GFR) estimation/1.73 sq m using serum, plasma, or whole bOrdered By: Rachel Dalton on 01-21-2025 GFR/1.73 sq M.predicted among non-blacks MDRD (S/P/Bld) [Vol rate/Area] 71 mL/min/{1.73_m2} >60 [facility] Comment on above: mL/min/1.73m2 CKD-EP I Creatinine Equation (2020) Hematocrit Auto (Bld) [Volum e fraction]Ordered By: Rachel Dalton on 01-21-2025 Hematocrit (Bld) [Volume fraction] 35.1 % Low 37-47 [facility] Hemoglobin measurementOrdere d By: Rachel Dalton on 01-21-2025 Hemoglobin (Bld) [Mass/Vol] 11.5 g/dL Low 12.0-15.0 [facility] Immature granulocytes/100 WB C Auto (Bld)Ordered By: Rachel Dalton on 01-21-2025 Immature granulocytes/100 WBC (Bld) 0.400 % 0.0-0.9 [facility] Comment on above: IG% - Immature Granu locytes (promyelocytes, myelocytes and metamyelocytes) > 1% indicates that a LEFT SHIFT is Present. MCV (mean corpuscular volume ) determinationOrdered By: Rachel Dalton on 01-21-2025 MCV (RBC) [Entitic vol] 92.6 fL 81-99 [facility] Mean corpuscular hemoglobin (MCH) determinationOrdered By: Rachel Dalton on 01-21-2025 MCH (RBC) [Entitic mass] 30.3 pg 27.0-32.0 [facility] Mean corpuscular hemoglobin concentration (MCHC) determinationOrdered By: Rachel Dalton on 01-21-2025 MCHC (RBC) [Mass/Vol] 32.8 g/dL 32-36 [facility] Mean platelet volume determi nationOrdered By: Rachel Dalton on 01-21-2025 Platelet mean volume (Bld) [Entitic vol] 10.4 fL 6.2-12.0 [facility] Monocyte percentageOrdered B y: Rachel Dalton on 01-21-2025 Monocytes/100 WBC (Bld) 6.0 % 0-10 [facility] Neutrophil percentageOrdered By: Rachel Dalton on 01-21-2025 Neutrophils/100 WBC (Bld) 49.9 % 47-70 [facility] Nucleated red blood cell per centageOrdered By: Rachel Dalton on 01-21-2025 Nucleated RBC/100 WBC (Bld) [Ratio] 0 % 0-5 [facility] Platelet countOrdered By: Chase Dalton on 01-21-2025 Platelets (Bld) [#/Vol] 203 10*3/uL 150-450 [facility] Potassium measurement (mass/ volume)Ordered By: Rachel Dalton on 01-21-2025 Potassium (Unsp spec) [Mass/Vol] 4.3 mmol/L 3.3-5.1 [facility] RBC Auto (Bld) [#/Vol]Ordere d By: Rachel Dalton on 01-21-2025 RBC (Bld) [#/Vol] 3.79 10*6/uL Low 4.2-5.4 [facility] Serum creatinine measurement (mass/volume)Ordered By: Rachel Dalton on 01-21-2025 Creatinine [Mass/Vol] 0.79 mg/dL 0.70-1.20 [facility] Serum glucose measurement (m ass/volume)Ordered By: Rachel Dalton on 01-21-2025 Glucose [Mass/Vol] 131 mg/dL High 70-99 [facility] Serum or plasma calcium khoi urement (mass/volume)Ordered By: Rachel Dalton on 01-21-2025 Calcium [Mass/Vol] 10.2 mg/dL 7.6-11.0 [facility] Serum or plasma urea nitroge n measurement (mass/volume)Ordered By: Rachel Dalton on 01-21-2025 Urea nitrogen [Mass/Vol] 22 mg/dL High 4-19 [facility] Sodium levelOrdered By: Jamel Dalton on 01-21-2025 Sodium [Moles/Vol] 139 mmol/L 133-145 [facility] White blood cell (WBC) count Ordered By: Rachel Dalton on 01-21-2025 WBC (Bld) [#/Vol] 6.7 10*3/uL 4.4-11.0 [facility] Absolute lymphocyte countOrd ered By: Rachel Dalton on 01-15-2025 Lymphocytes Auto (Unsp spec) [#/Vol] 2.95 10*3/uL 0.83-4.51 [facility] Absolute neutrophil countOrd ered By: Rachel Dalton on 01-15-2025 Neutrophils (Bld) [#/Vol] 2.5 10*3/uL 2.0-7.7 [facility] Anion gap in Serum or Plasma Ordered By: Rachel Dalton on 01-15-2025 Anion gap [Moles/Vol] 9 mmol/L 5-15 [facility] Automated lymphocyte count a s percentage of total leukocytesOrdered By: Rachel Dalton on 01-15-2025 Lymphocytes/100 WBC Auto (Unsp spec) 49.4 % High 19-41 [facility] BUN/creatinine ratioOrdered By: Rachel Dalton on 01-15-2025 Urea nitrogen/Creatinine [Mass ratio] 22.4 mg/mg High 10-20 [facility] Basophil percentageOrdered B y: Rachel Dalton on 01-15-2025 Basophils/100 WBC (Bld) 0.5 % 0-1 [facility] Carbon dioxide, total [Moles /volume] in Central venous bloodOrdered By: Rachel Dalton on 01-15-2025 CO2 [Moles/Vol] 24.5 mmol/L 21.0-32.0 [facility] Chloride assayOrdered By: Chase Dalton on 01-15-2025 Chloride [Moles/Vol] 106 mmol/L 98-108 [facility] Eosinophil percentageOrdered By: Rachel Dalton on 01-15-2025 Eosinophils/100 WBC (Bld) 3.7 % 0-5 [facility] Erythrocyte distribution wid th ratioOrdered By: Rachel Dalton on 01-15-2025 Erythrocyte distribution width (RBC) [Ratio] 12.5 % 11.6-14.6 [facility] Erythrocyte distribution wid th standard deviationOrdered By: Rachel Dalton on 01-15-2025 Erythrocyte distribution width (RBC) [Ratio] 41.5 fl 35.1-43.9 [facility] Glomerular filtration rate ( GFR) estimation/1.73 sq m using serum, plasma, or whole bOrdered By: Rachel Dalton on 01-15-2025 GFR/1.73 sq M.predicted among non-blacks MDRD (S/P/Bld) [Vol rate/Area] 69 mL/min/{1.73_m2} >60 [facility] Comment on above: mL/min/1.73m2 CKD-EP I Creatinine Equation (2020) Hematocrit Auto (Bld) [Volum e fraction]Ordered By: Rachel Dalton on 01-15-2025 Hematocrit (Bld) [Volume fraction] 34.7 % Low 37-47 [facility] Hemoglobin measurementOrdere d By: Rachel Dalton on 01-15-2025 Hemoglobin (Bld) [Mass/Vol] 11.3 g/dL Low 12.0-15.0 [facility] Immature granulocytes/100 WB C Auto (Bld)Ordered By: Rachel Dalton on 01-15-2025 Immature granulocytes/100 WBC (Bld) 0.300 % 0.0-0.9 [facility] Comment on above: IG% - Immature Granu locytes (promyelocytes, myelocytes and metamyelocytes) > 1% indicates that a LEFT SHIFT is Present. MCV (mean corpuscular volume ) determinationOrdered By: Rachel Dalton on 01-15-2025 MCV (RBC) [Entitic vol] 91.3 fL 81-99 [facility] Mean corpuscular hemoglobin (MCH) determinationOrdered By: eanthompsondino Dalton on 01-15-2025 MCH (RBC) [Entitic mass] 29.7 pg 27.0-32.0 [facility] Mean corpuscular hemoglobin concentration (MCHC) determinationOrdered By: jose miguel Dalton on 01-15-2025 MCHC (RBC) [Mass/Vol] 32.6 g/dL 32-36 [facility] Mean platelet volume determi nationOrdered By: Rachel Dalton on 01-15-2025 Platelet mean volume (Bld) [Entitic vol] 9.4 fL 6.2-12.0 [facility] Monocyte percentageOrdered B y: Rachel Dalton on 01-15-2025 Monocytes/100 WBC (Bld) 5.0 % 0-10 [facility] Neutrophil percentageOrdered By: eanthompsondino Dalton on 01-15-2025 Neutrophils/100 WBC (Bld) 41.1 % Low 47-70 [facility] Nucleated red blood cell per centageOrdered By: jose miguel Dalton on 01-15-2025 Nucleated RBC/100 WBC (Bld) [Ratio] 0 % 0-5 [facility] Platelet countOrdered By: Chase Dalton on 01-15-2025 Platelets (Bld) [#/Vol] 246 10*3/uL 150-450 [facility] Potassium measurement (mass/ volume)Ordered By: Rachel Dalton on 01-15-2025 Potassium (Unsp spec) [Mass/Vol] 4.4 mmol/L 3.3-5.1 [facility] RBC Auto (Bld) [#/Vol]Ordere d By: Rachel Dalton on 01-15-2025 RBC (Bld) [#/Vol] 3.80 10*6/uL Low 4.2-5.4 [facility] Serum creatinine measurement (mass/volume)Ordered By: Rachel Dalton on 01-15-2025 Creatinine [Mass/Vol] 0.81 mg/dL 0.70-1.20 [facility] Serum glucose measurement (m ass/volume)Ordered By: Rachel Dalton on 01-15-2025 Glucose [Mass/Vol] 135 mg/dL High 70-99 [facility] Serum or plasma calcium khoi urement (mass/volume)Ordered By: Rachel Dalton on 01-15-2025 Calcium [Mass/Vol] 10.1 mg/dL 7.6-11.0 [facility] Serum or plasma urea nitroge n measurement (mass/volume)Ordered By: Rachel Dalton on 01-15-2025 Urea nitrogen [Mass/Vol] 18 mg/dL 4-19 [facility] Sodium levelOrdered By: Jamel acevedomeredithcharles Dalton on 01-15-2025 Sodium [Moles/Vol] 139 mmol/L 133-145 [facility] White blood cell (WBC) count Ordered By: Rachel Dalton on 01-15-2025 WBC (Bld) [#/Vol] 6.0 10*3/uL 4.4-11.0 [facility] Absolute lymphocyte countOrd ered By: Rachel Dalton on 12-17-2024 Lymphocytes Auto (Unsp spec) [#/Vol] 2.56 10*3/uL 0.83-4.51 [facility] Absolute neutrophil countOrd ered By: Rachel Dalton on 12-17-2024 Neutrophils (Bld) [#/Vol] 1.8 10*3/uL Low 2.0-7.7 [facility] Anion gap in Serum or Plasma Ordered By: Rachel Dalton on 12-17-2024 Anion gap [Moles/Vol] 11 mmol/L 5-15 [facility] Automated lymphocyte count a s percentage of total leukocytesOrdered By: Rachel Dalton on 12-17-2024 Lymphocytes/100 WBC Auto (Unsp spec) 52.0 % High 19-41 [facility] BUN/creatinine ratioOrdered By: Rachel Dalton on 12-17-2024 Urea nitrogen/Creatinine [Mass ratio] 21.0 mg/mg High 10-20 [facility] Basophil percentageOrdered B y: Rachel Dalton on 12-17-2024 Basophils/100 WBC (Bld) 0.6 % 0-1 [facility] Carbon dioxide, total [Moles /volume] in Central venous bloodOrdered By: Rachel Dalton on 12-17-2024 CO2 [Moles/Vol] 22.0 mmol/L 21.0-32.0 [facility] Chloride assayOrdered By: Chase Dalton on 12-17-2024 Chloride [Moles/Vol] 106 mmol/L 98-108 [facility] Eosinophil percentageOrdered By: Rachel Dalton on 12-17-2024 Eosinophils/100 WBC (Bld) 4.5 % 0-5 [facility] Erythrocyte distribution wid th (RBC) [Ratio]Ordered By: Rachel Dalton on 12-17-2024 Erythrocyte distribution width (RBC) [Entitic vol] 41.5 fL 35.1-43.9 [facility] Erythrocyte distribution wid th ratioOrdered By: Rachel Dalton on 12-17-2024 Erythrocyte distribution width (RBC) [Ratio] 12.6 % 11.6-14.6 [facility] Erythrocyte distribution wid th standard deviationOrdered By: Rachel Dalton on 12-17-2024 Erythrocyte distribution width (RBC) [Ratio] 41.5 fl 35.1-43.9 [facility] GFR/1.73 sq M.predicted brady g non-blacks MDRD (S/P/Bld) [Vol rate/Area]Ordered By: Rachel Dalton on 12-17-2024 Estimated GFR (MDRD) Non-Af Amer 73 >60 [facility] Comment on above: mL/min/1.73m2 CKD-EP I Creatinine Equation (2020) Glomerular filtration rate ( GFR) estimation/1.73 sq m using serum, plasma, or whole bOrdered By: Rachel Dalton on 12-17-2024 GFR/1.73 sq M.predicted among non-blacks MDRD (S/P/Bld) [Vol rate/Area] 73 mL/min/{1.73_m2} >60 [facility] Comment on above: mL/min/1.73m2 CKD-EP I Creatinine Equation (2020) Hematocrit Auto (Bld) [Volum e fraction]Ordered By: Rachel Dalton on 12-17-2024 Hematocrit (Bld) [Volume fraction] 35.6 % Low 37-47 [facility] Hemoglobin measurementOrdere d By: Rachel Dalton on 12-17-2024 Hemoglobin (Bld) [Mass/Vol] 11.9 g/dL Low 12.0-15.0 [facility] Immature granulocytes/100 WB C Auto (Bld)Ordered By: Rachel Dalton on 12-17-2024 Immature granulocytes/100 WBC (Bld) 0.400 % 0.0-0.9 [facility] Comment on above: IG% - Immature Granu locytes (promyelocytes, myelocytes and metamyelocytes) > 1% indicates that a LEFT SHIFT is Present. Lymphocytes Auto (Unsp spec) [#/Vol]Ordered By: Rachel Dalton on 12-17-2024 Lymphocytes (Bld) [#/Vol] 2.56 10*3/uL 0.83-4.51 [facility] Lymphocytes/100 WBC Auto (Un sp spec)Ordered By: Rachel Dalton on 12-17-2024 Lymphocytes/100 WBC (Bld) 52.0 % High 19-41 [facility] MCV (mean corpuscular volume ) determinationOrdered By: Rachel Dalton on 12-17-2024 MCV (RBC) [Entitic vol] 91.3 fL 81-99 [facility] Mean corpuscular hemoglobin (MCH) determinationOrdered By: Rachel Dalton on 12-17-2024 MCH (RBC) [Entitic mass] 30.5 pg 27.0-32.0 [facility] Mean corpuscular hemoglobin concentration (MCHC) determinationOrdered By: Rachel Dalton on 12-17-2024 MCHC (RBC) [Mass/Vol] 33.4 g/dL 32-36 [facility] Mean platelet volume determi nationOrdered By: Rachel Dalton on 12-17-2024 Platelet mean volume (Bld) [Entitic vol] 10.5 fL 6.2-12.0 [facility] Monocyte percentageOrdered B y: Rachel Dalton on 12-17-2024 Monocytes/100 WBC (Bld) 6.9 % 0-10 [facility] Neutrophil percentageOrdered By: Rachel Dalton on 12-17-2024 Neutrophils/100 WBC (Bld) 35.6 % Low 47-70 [facility] Nucleated red blood cell per centageOrdered By: Rachel Dalton on 12-17-2024 Nucleated RBC/100 WBC (Bld) [Ratio] 0 % 0-5 [facility] Platelet countOrdered By: Chase lesleydino Dalton on 12-17-2024 Platelets (Bld) [#/Vol] 184 10*3/uL 150-450 [facility] Potassium (Unsp spec) [Mass/ Vol]Ordered By: Rachel Dalton on 12-17-2024 Potassium [Moles/Vol] 4.7 mmol/L 3.3-5.1 [facility] Potassium measurement (mass/ volume)Ordered By: Rachel Dalton on 12-17-2024 Potassium (Unsp spec) [Mass/Vol] 4.7 mmol/L 3.3-5.1 [facility] RBC Auto (Bld) [#/Vol]Ordere d By: Rachel Dalton on 12-17-2024 RBC (Bld) [#/Vol] 3.90 10*6/uL Low 4.2-5.4 [facility] Serum creatinine measurement (mass/volume)Ordered By: Rachel Dalton on 12-17-2024 Creatinine [Mass/Vol] 0.78 mg/dL 0.70-1.20 [facility] Serum glucose measurement (m ass/volume)Ordered By: Rachel Dalton on 12-17-2024 Glucose [Mass/Vol] 125 mg/dL High 70-99 [facility] Serum or plasma calcium khoi urement (mass/volume)Ordered By: Rachel Dalton on 12-17-2024 Calcium [Mass/Vol] 10.1 mg/dL 7.6-11.0 [facility] Serum or plasma urea nitroge n measurement (mass/volume)Ordered By: Rachel Dalton on 12-17-2024 Urea nitrogen [Mass/Vol] 16 mg/dL 4-19 [facility] Sodium levelOrdered By: Jamel acevedophoebe Sha on 12-17-2024 Sodium [Moles/Vol] 139 mmol/L 133-145 [facility] White blood cell (WBC) count Ordered By: Rachel Dalton on 12-17-2024 WBC (Bld) [#/Vol] 4.9 10*3/uL 4.4-11.0 [facility] Absolute lymphocyte countOrd ered By: Rachel Dalton on 12-11-2024 Lymphocytes Auto (Unsp spec) [#/Vol] 2.70 10*3/uL 0.83-4.51 [facility] Absolute neutrophil countOrd ered By: Rachel Dalton on 12-11-2024 Neutrophils (Bld) [#/Vol] 2.9 10*3/uL 2.0-7.7 [facility] Anion gap in Serum or Plasma Ordered By: Rachel Dalton on 12-11-2024 Anion gap [Moles/Vol] 10 mmol/L 5-15 [facility] Automated lymphocyte count a s percentage of total leukocytesOrdered By: Rachel Dalton on 12-11-2024 Lymphocytes/100 WBC Auto (Unsp spec) 42.8 % High 19-41 [facility] BUN/creatinine ratioOrdered By: aRchel Dalton on 12-11-2024 Urea nitrogen/Creatinine [Mass ratio] 22.1 mg/mg High 10-20 [facility] Basophil percentageOrdered B y: Rachel Dalton on 12-11-2024 Basophils/100 WBC (Bld) 0.5 % 0-1 [facility] Carbon dioxide, total [Moles /volume] in Central venous bloodOrdered By: Rachel Dalton on 12-11-2024 CO2 [Moles/Vol] 23.2 mmol/L 21.0-32.0 [facility] Chloride assayOrdered By: Chase Dalton on 12-11-2024 Chloride [Moles/Vol] 107 mmol/L 98-108 [facility] Eosinophil percentageOrdered By: Rachel Dalton on 12-11-2024 Eosinophils/100 WBC (Bld) 4.3 % 0-5 [facility] Erythrocyte distribution wid th (RBC) [Ratio]Ordered By: Rachel Dalton on 12-11-2024 Erythrocyte distribution width (RBC) [Entitic vol] 41.4 fL 35.1-43.9 [facility] Erythrocyte distribution wid th ratioOrdered By: Rachel Dalton on 12-11-2024 Erythrocyte distribution width (RBC) [Ratio] 12.7 % 11.6-14.6 [facility] Erythrocyte distribution wid th standard deviationOrdered By: Rachel Dalton on 12-11-2024 Erythrocyte distribution width (RBC) [Ratio] 41.4 fl 35.1-43.9 [facility] GFR/1.73 sq M.predicted brady g non-blacks MDRD (S/P/Bld) [Vol rate/Area]Ordered By: Rachel Dalton on 12-11-2024 Estimated GFR (MDRD) Non-Af Amer 55 Low >60 [facility] Comment on above: mL/min/1.73m2 CKD-EP I Creatinine Equation (2020) Glomerular filtration rate ( GFR) estimation/1.73 sq m using serum, plasma, or whole bOrdered By: Rachel Dalton on 12-11-2024 GFR/1.73 sq M.predicted among non-blacks MDRD (S/P/Bld) [Vol rate/Area] 55 mL/min/{1.73_m2} Low >60 [facility] Comment on above: mL/min/1.73m2 CKD-EP I Creatinine Equation (2020) Hematocrit Auto (Bld) [Volum e fraction]Ordered By: Rachel Dalton on 12-11-2024 Hematocrit (Bld) [Volume fraction] 36.2 % Low 37-47 [facility] Hemoglobin A1c percentageOrd ered By: Rachel Dalton on 12-11-2024 HbA1c (Bld) [Mass fraction] 6.8 % >5.7 [facility] Hemoglobin measurementOrdere d By: Rachel Dalton on 12-11-2024 Hemoglobin (Bld) [Mass/Vol] 12.3 g/dL 12.0-15.0 [facility] Immature granulocytes/100 WB C Auto (Bld)Ordered By: jose miguel Dalton on 12-11-2024 Immature granulocytes/100 WBC (Bld) 0.200 % 0.0-0.9 [facility] Comment on above: IG% - Immature Granu locytes (promyelocytes, myelocytes and metamyelocytes) > 1% indicates that a LEFT SHIFT is Present. Lymphocytes Auto (Unsp spec) [#/Vol]Ordered By: Rachel Dalton on 12-11-2024 Lymphocytes (Bld) [#/Vol] 2.70 10*3/uL 0.83-4.51 [facility] Lymphocytes/100 WBC Auto (Un sp spec)Ordered By: Rachel Dalton on 12-11-2024 Lymphocytes/100 WBC (Bld) 42.8 % High 19-41 [facility] MCV (mean corpuscular volume ) determinationOrdered By: Rachel Dalton on 12-11-2024 MCV (RBC) [Entitic vol] 89.8 fL 81-99 [facility] Mean corpuscular hemoglobin (MCH) determinationOrdered By: Rachel Dalton on 12-11-2024 MCH (RBC) [Entitic mass] 30.5 pg 27.0-32.0 [facility] Mean corpuscular hemoglobin concentration (MCHC) determinationOrdered By: Rachel Dalton on 12-11-2024 MCHC (RBC) [Mass/Vol] 34.0 g/dL 32-36 [facility] Mean platelet volume determi nationOrdered By: Rachel Giraldocharles on 12-11-2024 Platelet mean volume (Bld) [Entitic vol] 10.7 fL 6.2-12.0 [facility] Monocyte percentageOrdered B y: Dexdino Scottlibiacharles on 12-11-2024 Monocytes/100 WBC (Bld) 6.2 % 0-10 [facility] Neutrophil percentageOrdered By: Rachel Tylerlibiacharles on 12-11-2024 Neutrophils/100 WBC (Bld) 46.0 % Low 47-70 [facility] Nucleated red blood cell per centageOrdered By: Chaseeankatarzynadino Scottlibiacharles on 12-11-2024 Nucleated RBC/100 WBC (Bld) [Ratio] 0 % 0-5 [facility] Platelet countOrdered By: Chase jose miguel Tylerlibiacharles on 12-11-2024 Platelets (Bld) [#/Vol] 152 10*3/uL 150-450 [facility] Potassium (Unsp spec) [Mass/ Vol]Ordered By: Chaseeankatarzynadino Scottlibiacharles on 12-11-2024 Potassium [Moles/Vol] 4.6 mmol/L 3.3-5.1 [facility] Potassium measurement (mass/ volume)Ordered By: Rachel Scottlibiacharles on 12-11-2024 Potassium (Unsp spec) [Mass/Vol] 4.6 mmol/L 3.3-5.1 [facility] RBC Auto (Bld) [#/Vol]Ordere d By: Rachel Giraldocharles on 12-11-2024 RBC (Bld) [#/Vol] 4.03 10*6/uL Low 4.2-5.4 [facility] Serum creatinine measurement (mass/volume)Ordered By: Chaseeankatarzynadino Scottlibiacharles on 12-11-2024 Creatinine [Mass/Vol] 0.98 mg/dL 0.70-1.20 [facility] Serum glucose measurement (m ass/volume)Ordered By: Rachel Dalton on 12-11-2024 Glucose [Mass/Vol] 126 mg/dL High 70-99 [facility] Serum or plasma calcium khoi urement (mass/volume)Ordered By: Rachel Dalton on 12-11-2024 Calcium [Mass/Vol] 10.2 mg/dL 7.6-11.0 [facility] Serum or plasma urea nitroge n measurement (mass/volume)Ordered By: Rachel Dalton on 12-11-2024 Urea nitrogen [Mass/Vol] 22 mg/dL High 4-19 [facility] Sodium levelOrdered By: Jamel acevedophoebe Sha on 12-11-2024 Sodium [Moles/Vol] 139 mmol/L 133-145 [facility] TSH DL <= 0.005 mIU/L QnOrde red By: Rachel Dalton on 12-11-2024 Thyroid Stimulating Hormone (TSH) 1.280 uIU/mL 0.300-4.200 [facility] TSH Qn 1.280 uIU/mL 0.300-4.200 [facility] White blood cell (WBC) count Ordered By: Rachel Dalton on 12-11-2024 WBC (Bld) [#/Vol] 6.3 10*3/uL 4.4-11.0 [facility] Absolute lymphocyte countOrd ered By: Rachel Dalton on 11-19-2024 Lymphocytes Auto (Unsp spec) [#/Vol] 3.02 10*3/uL 0.83-4.51 [facility] Absolute neutrophil countOrd ered By: Rachel Dalton on 11-19-2024 Neutrophils (Bld) [#/Vol] 1.9 10*3/uL Low 2.0-7.7 [facility] Anion gap in Serum or Plasma Ordered By: Rachel Dalton on 11-19-2024 Anion gap [Moles/Vol] 11 mmol/L 5-15 [facility] Automated lymphocyte count a s percentage of total leukocytesOrdered By: Rachel Dalton on 11-19-2024 Lymphocytes/100 WBC Auto (Unsp spec) 54.0 % High 19-41 [facility] BUN/creatinine ratioOrdered By: Rachel Dalton on 11-19-2024 Urea nitrogen/Creatinine [Mass ratio] 22.5 mg/mg High 10-20 [facility] Basophil percentageOrdered B y: Rachel Dalton on 11-19-2024 Basophils/100 WBC (Bld) 0.5 % 0-1 [facility] Carbon dioxide, total [Moles /volume] in Central venous bloodOrdered By: Rachel Dalton on 11-19-2024 CO2 [Moles/Vol] 21.7 mmol/L 21.0-32.0 [facility] Chloride assayOrdered By: Chase Dalton on 11-19-2024 Chloride [Moles/Vol] 106 mmol/L 98-108 [facility] Eosinophil percentageOrdered By: Rachel Dalton on 11-19-2024 Eosinophils/100 WBC (Bld) 6.3 % High 0-5 [facility] Erythrocyte distribution wid th (RBC) [Ratio]Ordered By: Rachel Dalton on 11-19-2024 Erythrocyte distribution width (RBC) [Entitic vol] 43.2 fL 35.1-43.9 [facility] Erythrocyte distribution wid th ratioOrdered By: Rachel Dalton on 11-19-2024 Erythrocyte distribution width (RBC) [Ratio] 13.1 % 11.6-14.6 [facility] Erythrocyte distribution wid th standard deviationOrdered By: Rachel Dalton on 11-19-2024 Erythrocyte distribution width (RBC) [Ratio] 43.2 fl 35.1-43.9 [facility] GFR/1.73 sq M.predicted brady g non-blacks MDRD (S/P/Bld) [Vol rate/Area]Ordered By: Rachel Dalton on 11-19-2024 Estimated GFR (MDRD) Non-Af Amer 65 >60 [facility] Comment on above: mL/min/1.73m2 CKD-EP I Creatinine Equation (2020) Glomerular filtration rate ( GFR) estimation/1.73 sq m using serum, plasma, or whole bOrdered By: Rachel Dalton on 11-19-2024 GFR/1.73 sq M.predicted among non-blacks MDRD (S/P/Bld) [Vol rate/Area] 65 mL/min/{1.73_m2} >60 [facility] Comment on above: mL/min/1.73m2 CKD-EP I Creatinine Equation (2020) Hematocrit Auto (Bld) [Volum e fraction]Ordered By: Rachel Dalton on 11-19-2024 Hematocrit (Bld) [Volume fraction] 36.5 % Low 37-47 [facility] Hemoglobin measurementOrdere d By: Rachel Dalton on 11-19-2024 Hemoglobin (Bld) [Mass/Vol] 12.0 g/dL 12.0-15.0 [facility] Immature granulocytes/100 WB C Auto (Bld)Ordered By: Rachel Dalton on 11-19-2024 Immature granulocytes/100 WBC (Bld) 0.200 % 0.0-0.9 [facility] Comment on above: IG% - Immature Granu locytes (promyelocytes, myelocytes and metamyelocytes) > 1% indicates that a LEFT SHIFT is Present. Lymphocytes Auto (Unsp spec) [#/Vol]Ordered By: Rachel Dalton on 11-19-2024 Lymphocytes (Bld) [#/Vol] 3.02 10*3/uL 0.83-4.51 [facility] Lymphocytes/100 WBC Auto (Un sp spec)Ordered By: Rachel Dalton on 11-19-2024 Lymphocytes/100 WBC (Bld) 54.0 % High 19-41 [facility] MCV (mean corpuscular volume ) determinationOrdered By: Rachel Dalton on 11-19-2024 MCV (RBC) [Entitic vol] 91.3 fL 81-99 [facility] Mean corpuscular hemoglobin (MCH) determinationOrdered By: Rachel Dalton on 11-19-2024 MCH (RBC) [Entitic mass] 30.0 pg 27.0-32.0 [facility] Mean corpuscular hemoglobin concentration (MCHC) determinationOrdered By: Rachel Dalton on 11-19-2024 MCHC (RBC) [Mass/Vol] 32.9 g/dL 32-36 [facility] Mean platelet volume determi nationOrdered By: Rachel Giraldoe on 11-19-2024 Platelet mean volume (Bld) [Entitic vol] 10.7 fL 6.2-12.0 [facility] Monocyte percentageOrdered B y: Chasejose miguel Tylerlibiacharles on 11-19-2024 Monocytes/100 WBC (Bld) 5.5 % 0-10 [facility] Neutrophil percentageOrdered By: Chaselesleydino Scottlibiacharles on 11-19-2024 Neutrophils/100 WBC (Bld) 33.5 % Low 47-70 [facility] Nucleated red blood cell per centageOrdered By: Jamelkatarzynadino Scottlibiacharles on 11-19-2024 Nucleated RBC/100 WBC (Bld) [Ratio] 0 % 0-5 [facility] Platelet countOrdered By: Chase lesleydino Dalton on 11-19-2024 Platelets (Bld) [#/Vol] 157 10*3/uL 150-450 [facility] Potassium (Unsp spec) [Mass/ Vol]Ordered By: Rachel Dalton on 11-19-2024 Potassium [Moles/Vol] 4.5 mmol/L 3.3-5.1 [facility] Potassium measurement (mass/ volume)Ordered By: Rachel Dalton on 11-19-2024 Potassium (Unsp spec) [Mass/Vol] 4.5 mmol/L 3.3-5.1 [facility] RBC Auto (Bld) [#/Vol]Ordere d By: Jamelkatarzynadino Scottlibiacharles on 11-19-2024 RBC (Bld) [#/Vol] 4.00 10*6/uL Low 4.2-5.4 [facility] Serum creatinine measurement (mass/volume)Ordered By: Rachel Dalton on 11-19-2024 Creatinine [Mass/Vol] 0.85 mg/dL 0.70-1.20 [facility] Serum glucose measurement (m ass/volume)Ordered By: Rachel Dalton on 11-19-2024 Glucose [Mass/Vol] 119 mg/dL High 70-99 [facility] Serum or plasma calcium khoi urement (mass/volume)Ordered By: Rachel Dalton on 11-19-2024 Calcium [Mass/Vol] 10.3 mg/dL 7.6-11.0 [facility] Serum or plasma urea nitroge n measurement (mass/volume)Ordered By: Rachel Dalton on 11-19-2024 Urea nitrogen [Mass/Vol] 19 mg/dL 4-19 [facility] Sodium levelOrdered By: Jamel luis Sha on 11-19-2024 Sodium [Moles/Vol] 139 mmol/L 133-145 [facility] White blood cell (WBC) count Ordered By: Rachel Dalton on 11-19-2024 WBC (Bld) [#/Vol] 5.6 10*3/uL 4.4-11.0 [facility] Absolute lymphocyte countOrd ered By: Rachel Dalton on 11-13-2024 Lymphocytes Auto (Unsp spec) [#/Vol] 3.00 10*3/uL 0.83-4.51 [facility] Absolute neutrophil countOrd ered By: Rachel Dalton on 11-13-2024 Neutrophils (Bld) [#/Vol] 1.4 10*3/uL Low 2.0-7.7 [facility] Anion gap in Serum or Plasma Ordered By: Rachel Dalton on 11-13-2024 Anion gap [Moles/Vol] 10 mmol/L 5-15 [facility] Automated lymphocyte count a s percentage of total leukocytesOrdered By: Rachel Dalton on 11-13-2024 Lymphocytes/100 WBC Auto (Unsp spec) 58.8 % High 19-41 [facility] BUN/creatinine ratioOrdered By: Rachel Dalton on 11-13-2024 Urea nitrogen/Creatinine [Mass ratio] 20.1 mg/mg High 10-20 [facility] Basophil percentageOrdered B y: Rachel Dalton on 11-13-2024 Basophils/100 WBC (Bld) 0.6 % 0-1 [facility] Carbon dioxide, total [Moles /volume] in Central venous bloodOrdered By: Rachel Dalton on 11-13-2024 CO2 [Moles/Vol] 22.9 mmol/L 21.0-32.0 [facility] Chloride assayOrdered By: Chase Dalton on 11-13-2024 Chloride [Moles/Vol] 106 mmol/L 98-108 [facility] Eosinophil percentageOrdered By: Rachel Dalton on 11-13-2024 Eosinophils/100 WBC (Bld) 6.1 % High 0-5 [facility] Erythrocyte distribution wid th (RBC) [Ratio]Ordered By: Rachel Dalton on 11-13-2024 Erythrocyte distribution width (RBC) [Entitic vol] 42.2 fL 35.1-43.9 [facility] Erythrocyte distribution wid th ratioOrdered By: Rachel Dalton on 11-13-2024 Erythrocyte distribution width (RBC) [Ratio] 12.9 % 11.6-14.6 [facility] Erythrocyte distribution wid th standard deviationOrdered By: Rachel Dalton on 11-13-2024 Erythrocyte distribution width (RBC) [Ratio] 42.2 fl 35.1-43.9 [facility] GFR/1.73 sq M.predicted brady g non-blacks MDRD (S/P/Bld) [Vol rate/Area]Ordered By: Rachel Dalton on 11-13-2024 Estimated GFR (MDRD) Non-Af Amer 54 Low >60 [facility] Comment on above: mL/min/1.73m2 CKD-EP I Creatinine Equation (2020) Glomerular filtration rate ( GFR) estimation/1.73 sq m using serum, plasma, or whole bOrdered By: Rachle Dalton on 11-13-2024 GFR/1.73 sq M.predicted among non-blacks MDRD (S/P/Bld) [Vol rate/Area] 54 mL/min/{1.73_m2} Low >60 [facility] Comment on above: mL/min/1.73m2 CKD-EP I Creatinine Equation (2020) Hematocrit Auto (Bld) [Volum e fraction]Ordered By: Rachel Dalton on 11-13-2024 Hematocrit (Bld) [Volume fraction] 35.5 % Low 37-47 [facility] Hemoglobin measurementOrdere d By: Rachel Dalton on 11-13-2024 Hemoglobin (Bld) [Mass/Vol] 11.9 g/dL Low 12.0-15.0 [facility] Immature granulocytes/100 WB C Auto (Bld)Ordered By: Rachel Dalton on 11-13-2024 Immature granulocytes/100 WBC (Bld) 0.200 % 0.0-0.9 [facility] Comment on above: IG% - Immature Granu locytes (promyelocytes, myelocytes and metamyelocytes) > 1% indicates that a LEFT SHIFT is Present. Lymphocytes Auto (Unsp spec) [#/Vol]Ordered By: Rachel Dalton on 11-13-2024 Lymphocytes (Bld) [#/Vol] 3.00 10*3/uL 0.83-4.51 [facility] Lymphocytes/100 WBC Auto (Un sp spec)Ordered By: Rachel Dalton on 11-13-2024 Lymphocytes/100 WBC (Bld) 58.8 % High 19-41 [facility] MCV (mean corpuscular volume ) determinationOrdered By: Rachel Dalton on 11-13-2024 MCV (RBC) [Entitic vol] 91.3 fL 81-99 [facility] Mean corpuscular hemoglobin (MCH) determinationOrdered By: jose miguel Dalton on 11-13-2024 MCH (RBC) [Entitic mass] 30.6 pg 27.0-32.0 [facility] Mean corpuscular hemoglobin concentration (MCHC) determinationOrdered By: eanthompsondino Dalton on 11-13-2024 MCHC (RBC) [Mass/Vol] 33.5 g/dL 32-36 [facility] Mean platelet volume determi nationOrdered By: eanthompsondino Dalton on 11-13-2024 Platelet mean volume (Bld) [Entitic vol] 10.4 fL 6.2-12.0 [facility] Monocyte percentageOrdered B y: Rachel Dalton on 11-13-2024 Monocytes/100 WBC (Bld) 6.5 % 0-10 [facility] Neutrophil percentageOrdered By: eanthompsondino Dalton on 11-13-2024 Neutrophils/100 WBC (Bld) 27.8 % Low 47-70 [facility] Nucleated red blood cell per centageOrdered By: Rachel Dalton on 11-13-2024 Nucleated RBC/100 WBC (Bld) [Ratio] 0 % 0-5 [facility] Platelet countOrdered By: Chase Dalton on 11-13-2024 Platelets (Bld) [#/Vol] 166 10*3/uL 150-450 [facility] Potassium (Unsp spec) [Mass/ Vol]Ordered By: Rachel Dalton on 11-13-2024 Potassium [Moles/Vol] 4.6 mmol/L 3.3-5.1 [facility] Potassium measurement (mass/ volume)Ordered By: Rachel Dalton on 11-13-2024 Potassium (Unsp spec) [Mass/Vol] 4.6 mmol/L 3.3-5.1 [facility] RBC Auto (Bld) [#/Vol]Ordere d By: Rachel Dalton on 11-13-2024 RBC (Bld) [#/Vol] 3.89 10*6/uL Low 4.2-5.4 [facility] Serum creatinine measurement (mass/volume)Ordered By: Rachel Dalton on 11-13-2024 Creatinine [Mass/Vol] 1.00 mg/dL 0.70-1.20 [facility] Serum glucose measurement (m ass/volume)Ordered By: Rachel Dalton on 11-13-2024 Glucose [Mass/Vol] 122 mg/dL High 70-99 [facility] Serum or plasma calcium khoi urement (mass/volume)Ordered By: Rachel Dalton on 11-13-2024 Calcium [Mass/Vol] 10.1 mg/dL 7.6-11.0 [facility] Serum or plasma urea nitroge n measurement (mass/volume)Ordered By: Rachel Dalton on 11-13-2024 Urea nitrogen [Mass/Vol] 20 mg/dL High 4-19 [facility] Sodium levelOrdered By: Jamel acevedomeredithcharles Dalton on 11-13-2024 Sodium [Moles/Vol] 139 mmol/L 133-145 [facility] White blood cell (WBC) count Ordered By: Rachel Dalton on 11-13-2024 WBC (Bld) [#/Vol] 5.1 10*3/uL 4.4-11.0 [facility] Bilirubin Test strip Ql (U)O rdered By: Rachel Dalton on 10-25-2024 Bilirubin Ql (U) Negative Negative [facility] Epithelial cells.squamous LM Ql (Urine sed)Ordered By: Rachel Dalton on 10-25-2024 Epithelial cells.squamous LM.HPF (Urine sed) [#/Area] 0 /[HPF] 5-10 [facility] Glucose Ql (U)Ordered By: Chase Dalton on 10-25-2024 Urine Glucose (UA) Normal mg/dl Normal [facility] Ketones Test strip Ql (U)Ord ered By: Rachel Dalton on 10-25-2024 Ketones Ql (U) Negative Negative [facility] Microscopic analysis of urin e for red blood cells (RBC)Ordered By: Rachel Dalton on 10-25-2024 Microscopic analysis of urine for red blood cells (RBC) 0 SEEN /hpf 0-5 [facility] Urine RBC 0 SEEN /hpf 0-5 [facility] Mucus LM Ql (Urine sed)Order ed By: Rachel Dalton on 10-25-2024 Mucus Ql (Urine sed) 0 SEEN /hpf [facility] Nitrite Test strip Ql (U)Ord ered By: Rachel Dalton on 10-25-2024 Nitrite Ql (U) Negative Negative [facility] Protein Test strip Ql (U)Ord ered By: Rachel Dalton on 10-25-2024 Protein Ql (U) 30 mg/dl High Negative [facility] Squamous epithelial cells de tection in urine sediment by light microscopyOrdered By: Rachel Dalton on 10-25-2024 Epithelial cells.squamous LM Ql (Urine sed) 0-5 SEEN /hpf 5-10 [facility] Urine blood detectionOrdered By: Rachel Dalton on 10-25-2024 Urine Occult Blood 25 /ul High Negative [facility] Urine clarityOrdered By: Steven Dalton on 10-25-2024 Clarity (U) Sl. Cloudy Clear [facility] Urine color determinationOrd ered By: Rachel Dalton on 10-25-2024 Color (U) Yellow Yellow [facility] Urine cultureOrdered By: Steven Dalton on 10-25-2024 Bacteria identified Cx Nom (U) Presumptive E. coli Abnormal [facility] Urine glucose detectionOrder ed By: Rachel Dalton on 10-25-2024 Glucose Ql (U) Normal mg/dl Normal [facility] Urine leukocyte esterase det ection by dipstickOrdered By: Rachel Dalton on 10-25-2024 Leukocyte esterase Test strip Ql (U) 500 /ul High Negative [facility] Urine pHOrdered By: Lashanda Dalton on 10-25-2024 pH (U) 6.0 [pH] 5.0 - 8.0 [facility] Urine sediment bacteria coun t by microscopy (number/high power field)Ordered By: Rachel Dalton on 10-25-2024 Bacteria LM.HPF (Urine sed) [#/Area] 0 /[HPF] None Seen [facility] Urine specific gravity measu rementOrdered By: Rachel Dalton on 10-25-2024 Specific gravity (U) [Rel density] 1.015 1.002-1.030 [facility] Urine urobilinogen measureme ntOrdered By: Rachel Dalton on 10-25-2024 Urobilinogen Ql (U) Normal mg/dl Normal [facility] Urobilinogen Ql (U)Ordered B y: Rachel Dalton on 10-25-2024 Urine Urobilinogen Normal mg/dl Normal [facility] White blood cell countOrdere d By: Rachel Dalton on 10-25-2024 Urine WBC 10-25 SEEN /hpf 0-5 [facility] White blood cell count 10-25 SEEN /hpf 0-5 [facility] Absolute lymphocyte countOrd ered By: Rachel Dalton on 10-22-2024 Lymphocytes Auto (Unsp spec) [#/Vol] 2.22 10*3/uL 0.83-4.51 [facility] Absolute neutrophil countOrd ered By: Rachel Dalton on 10-22-2024 Neutrophils (Bld) [#/Vol] 3.4 10*3/uL 2.0-7.7 [facility] Automated lymphocyte count a s percentage of total leukocytesOrdered By: Rachel Dalton on 10-22-2024 Lymphocytes/100 WBC Auto (Unsp spec) 35.4 % 19-41 [facility] Basophil percentageOrdered B y: Rachel Dalton on 10-22-2024 Basophils/100 WBC (Bld) 0.5 % 0-1 [facility] Blood urea nitrogen (BUN)/cr eatinine ratioOrdered By: Rachel Dalton on 10-22-2024 Urea nitrogen/Creatinine [Mass ratio] 21.6 mg/mg High 10-20 [facility] Carbon dioxide measurementOr dered By: Rachel Dalton on 10-22-2024 CO2 [Moles/Vol] 28.0 mmol/L 21.0-32.0 [facility] Chloride measurementOrdered By: eanthompsondino Dalton on 10-22-2024 Chloride [Moles/Vol] 105 mmol/L 98-107 [facility] Eosinophil percentageOrdered By: Rachel Dalton on 10-22-2024 Eosinophils/100 WBC (Bld) 3.0 % 0-5 [facility] Erythrocyte distribution wid th (RBC) [Ratio]Ordered By: Rachel Dalton on 10-22-2024 Erythrocyte distribution width (RBC) [Entitic vol] 42.8 fL 35.1-43.9 [facility] Erythrocyte distribution wid th ratioOrdered By: Rachel Daltno on 10-22-2024 Erythrocyte distribution width (RBC) [Ratio] 12.7 % 11.6-14.6 [facility] Erythrocyte distribution wid th standard deviationOrdered By: Rachel Dalton on 10-22-2024 Erythrocyte distribution width (RBC) [Ratio] 42.8 fl 35.1-43.9 [facility] Estimated glomerular filtrat ion rate (GFR) AmericanOrdered By: Rachel Dalton on 10-22-2024 Estimated GFR (MDRD) Amer 83 mL/min >60 [facility] Comment on above: GFR Calc Glomerular filtration rate ( GFR) estimationOrdered By: Rachel Dalton on 10-22-2024 Estimated GFR (MDRD) Non-Af Amer 68 mL/min >60 [facility] Comment on above: Non- GFR Calc GFR/1.73 sq M.predicted among non-blacks MDRD (S/P/Bld) [Vol rate/Area] 68 mL/min/{1.73_m2} >60 [facility] Comment on above: Non- GFR Calc Glucose measurementOrdered B y: Rachel Dalton on 10-22-2024 Glucose [Mass/Vol] 130 mg/dL High 74-106 [facility] Comment on above: Fasting Glucose resu lt greater than or equal to 126 mg/dL suggests DIABETES MELLITUS per A.D.A. criteria. Hematocrit Auto (Bld) [Volum e fraction]Ordered By: Rachel Dalton on 10-22-2024 Hematocrit (Bld) [Volume fraction] 36.5 % Low 37-47 [facility] Hemoglobin measurementOrdere d By: Rachel Dalton on 10-22-2024 Hemoglobin (Bld) [Mass/Vol] 11.7 g/dL Low 12.0-15.0 [facility] Immature granulocytes/100 WB C Auto (Bld)Ordered By: Rachel Dalton on 10-22-2024 Immature granulocytes/100 WBC (Bld) 0.300 % 0.0-0.9 [facility] Comment on above: IG% - Immature Granu locytes (promyelocytes, myelocytes and metamyelocytes) > 1% indicates that a LEFT SHIFT is Present. Lymphocytes Auto (Unsp spec) [#/Vol]Ordered By: Rachel Dalton on 10-22-2024 Lymphocytes (Bld) [#/Vol] 2.22 10*3/uL 0.83-4.51 [facility] Lymphocytes/100 WBC Auto (Un sp spec)Ordered By: Rachel Dalton on 10-22-2024 Lymphocytes/100 WBC (Bld) 35.4 % 19-41 [facility] MCV (mean corpuscular volume ) determinationOrdered By: Rachel Dalton on 10-22-2024 MCV (RBC) [Entitic vol] 92.4 fL 81-99 [facility] Mean corpuscular hemoglobin (MCH) determinationOrdered By: Rachel Dalton on 10-22-2024 MCH (RBC) [Entitic mass] 29.6 pg 27.0-32.0 [facility] Mean corpuscular hemoglobin concentration (MCHC) determinationOrdered By: Rachel Dalton on 10-22-2024 MCHC (RBC) [Mass/Vol] 32.1 g/dL 32-36 [facility] Mean platelet volume determi nationOrdered By: Rachel Dalton on 10-22-2024 Platelet mean volume (Bld) [Entitic vol] 10.7 fL 6.2-12.0 [facility] Monocyte percentageOrdered B y: Rachel Dalton on 10-22-2024 Monocytes/100 WBC (Bld) 6.5 % 0-10 [facility] Neutrophil percentageOrdered By: Rachel Dalton on 10-22-2024 Neutrophils/100 WBC (Bld) 54.3 % 47-70 [facility] Nucleated red blood cell per centageOrdered By: Rachel Dalton on 10-22-2024 Nucleated RBC/100 WBC (Bld) [Ratio] 0 % 0-5 [facility] Platelet countOrdered By: Chase Dalton on 10-22-2024 Platelets (Bld) [#/Vol] 176 10*3/uL 150-450 [facility] Potassium measurementOrdered By: Rachel Dalton on 10-22-2024 Potassium [Moles/Vol] 4.4 mmol/L 3.5-5.1 [facility] RBC Auto (Bld) [#/Vol]Ordere d By: Rachel aDlton on 10-22-2024 RBC (Bld) [#/Vol] 3.95 10*6/uL Low 4.2-5.4 [facility] Serum anion gap measurementO rdered By: Rachel Dalton on 10-22-2024 Anion gap [Moles/Vol] 5 mmol/L 5-15 [facility] Serum or plasma calcium khoi urement (mass/volume)Ordered By: Rachel Dalton on 10-22-2024 Calcium [Mass/Vol] 10.3 mg/dL High 8.5-10.1 [facility] Serum or plasma creatinine m easurement (mass/volume)Ordered By: Rachel Dalton on 10-22-2024 Creatinine [Mass/Vol] 0.84 mg/dL 0.55-1.02 [facility] Comment on above: The validity of the calculated GFR & GFRAA in patients over 70 years has not been determined. Clinical correlation is essential. Serum or plasma urea nitroge n measurement (mass/volume)Ordered By: Rachel Dalton on 10-22-2024 Urea nitrogen [Mass/Vol] 18 mg/dL 7-18 [facility] Sodium levelOrdered By: Jamel acevedophoebe Sha on 10-22-2024 Sodium [Moles/Vol] 138 mmol/L 136-145 [facility] White blood cell (WBC) count Ordered By: Rachel Dalton on 10-22-2024 WBC (Bld) [#/Vol] 6.3 10*3/uL 4.4-11.0 [facility] Cardiology Visit Reporton Cardiology Visit Report Normal [facility] Pacemaker Checkon 10-17-2024 Pacemaker Check Normal [facility] Absolute lymphocyte countOrd ered By: Rachel Dalton on 10-16-2024 Lymphocytes Auto (Unsp spec) [#/Vol] 2.80 10*3/uL 0.83-4.51 [facility] Absolute neutrophil countOrd ered By: Rachel Dalton on 10-16-2024 Neutrophils (Bld) [#/Vol] 1.6 10*3/uL Low 2.0-7.7 [facility] Automated lymphocyte count a s percentage of total leukocytesOrdered By: Rachel Dalton on 10-16-2024 Lymphocytes/100 WBC Auto (Unsp spec) 56.0 % High 19-41 [facility] Basophil percentageOrdered B y: Rachel Dalton on 10-16-2024 Basophils/100 WBC (Bld) 0.4 % 0-1 [facility] Blood urea nitrogen (BUN)/cr eatinine ratioOrdered By: Rachel Dalton on 10-16-2024 Urea nitrogen/Creatinine [Mass ratio] 18.6 mg/mg 10-20 [facility] Carbon dioxide measurementOr dered By: Rachel Dalton on 10-16-2024 CO2 [Moles/Vol] 25.0 mmol/L 21.0-32.0 [facility] Chloride measurementOrdered By: Rachel Dalton on 10-16-2024 Chloride [Moles/Vol] 108 mmol/L High 98-107 [facility] Eosinophil percentageOrdered By: Rachel Dalton on 10-16-2024 Eosinophils/100 WBC (Bld) 5.8 % High 0-5 [facility] Erythrocyte distribution wid th (RBC) [Ratio]Ordered By: Rachel Dalton on 10-16-2024 Erythrocyte distribution width (RBC) [Entitic vol] 42.5 fL 35.1-43.9 [facility] Erythrocyte distribution wid th ratioOrdered By: Rachel Dalton on 10-16-2024 Erythrocyte distribution width (RBC) [Ratio] 12.8 % 11.6-14.6 [facility] Erythrocyte distribution wid th standard deviationOrdered By: eanthompsondino Dalton on 10-16-2024 Erythrocyte distribution width (RBC) [Ratio] 42.5 fl 35.1-43.9 [facility] Estimated glomerular filtrat ion rate (GFR) AmericanOrdered By: Rachel Dalton on 10-16-2024 Estimated GFR (MDRD) Amer 74 mL/min >60 [facility] Comment on above: GFR Calc Glomerular filtration rate ( GFR) estimationOrdered By: Rachel Dalton on 10-16-2024 Estimated GFR (MDRD) Non-Af Amer 61 mL/min >60 [facility] Comment on above: Non- GFR Calc GFR/1.73 sq M.predicted among non-blacks MDRD (S/P/Bld) [Vol rate/Area] 61 mL/min/{1.73_m2} >60 [facility] Comment on above: Non- GFR Calc Glucose measurementOrdered B y: Jamelkatarzynadino Dalton on 10-16-2024 Glucose [Mass/Vol] 122 mg/dL High 74-106 [facility] Comment on above: Fasting Glucose resu lt from 100 to 125 mg/dL suggests IMPAIRED HOMEOSTASIS per A.D.A. criteria. Hematocrit Auto (Bld) [Volum e fraction]Ordered By: Rachel Dalton on 10-16-2024 Hematocrit (Bld) [Volume fraction] 35.2 % Low 37-47 [facility] Hemoglobin measurementOrdere d By: Rachel Dalton on 10-16-2024 Hemoglobin (Bld) [Mass/Vol] 11.4 g/dL Low 12.0-15.0 [facility] Immature granulocytes/100 WB C Auto (Bld)Ordered By: jose miguel Dalton on 10-16-2024 Immature granulocytes/100 WBC (Bld) 0.200 % 0.0-0.9 [facility] Comment on above: IG% - Immature Granu locytes (promyelocytes, myelocytes and metamyelocytes) > 1% indicates that a LEFT SHIFT is Present. Lymphocytes Auto (Unsp spec) [#/Vol]Ordered By: Rachel Dalton on 10-16-2024 Lymphocytes (Bld) [#/Vol] 2.80 10*3/uL 0.83-4.51 [facility] Lymphocytes/100 WBC Auto (Un sp spec)Ordered By: Rachel Dalton on 10-16-2024 Lymphocytes/100 WBC (Bld) 56.0 % High 19-41 [facility] MCV (mean corpuscular volume ) determinationOrdered By: Rachel Dalton on 10-16-2024 MCV (RBC) [Entitic vol] 92.1 fL 81-99 [facility] Mean corpuscular hemoglobin (MCH) determinationOrdered By: Rachel Dalton on 10-16-2024 MCH (RBC) [Entitic mass] 29.8 pg 27.0-32.0 [facility] Mean corpuscular hemoglobin concentration (MCHC) determinationOrdered By: Rachel Dalton on 10-16-2024 MCHC (RBC) [Mass/Vol] 32.4 g/dL 32-36 [facility] Mean platelet volume determi nationOrdered By: Rachel Dalton on 10-16-2024 Platelet mean volume (Bld) [Entitic vol] 10.5 fL 6.2-12.0 [facility] Monocyte percentageOrdered B y: Rachel Dalton on 10-16-2024 Monocytes/100 WBC (Bld) 6.0 % 0-10 [facility] Neutrophil percentageOrdered By: Rachel Dalton on 10-16-2024 Neutrophils/100 WBC (Bld) 31.6 % Low 47-70 [facility] Nucleated red blood cell per centageOrdered By: Rachel Dalton on 10-16-2024 Nucleated RBC/100 WBC (Bld) [Ratio] 0 % 0-5 [facility] Platelet countOrdered By: Chase Dalton on 10-16-2024 Platelets (Bld) [#/Vol] 177 10*3/uL 150-450 [facility] Potassium measurementOrdered By: Rachel Dalton on 10-16-2024 Potassium [Moles/Vol] 4.1 mmol/L 3.5-5.1 [facility] RBC Auto (Bld) [#/Vol]Ordere d By: Rachel Dalton on 10-16-2024 RBC (Bld) [#/Vol] 3.82 10*6/uL Low 4.2-5.4 [facility] Serum anion gap measurementO rdered By: Rachel Dalton on 10-16-2024 Anion gap [Moles/Vol] 6 mmol/L 5-15 [facility] Serum or plasma calcium khoi urement (mass/volume)Ordered By: Rachel Dalton on 10-16-2024 Calcium [Mass/Vol] 10.1 mg/dL 8.5-10.1 [facility] Serum or plasma creatinine m easurement (mass/volume)Ordered By: Rachel Dalton on 10-16-2024 Creatinine [Mass/Vol] 0.92 mg/dL 0.55-1.02 [facility] Comment on above: The validity of the calculated GFR & GFRAA in patients over 70 years has not been determined. Clinical correlation is essential. Serum or plasma urea nitroge n measurement (mass/volume)Ordered By: Rachel Dalton on 10-16-2024 Urea nitrogen [Mass/Vol] 17 mg/dL 7-18 [facility] Sodium levelOrdered By: Jamel Dalton on 10-16-2024 Sodium [Moles/Vol] 139 mmol/L 136-145 [facility] White blood cell (WBC) count Ordered By: Rachel Dalton on 10-16-2024 WBC (Bld) [#/Vol] 5.0 10*3/uL 4.4-11.0 [facility] Absolute neutrophil countOrd ered By: Jamelthompsondino Dalton on 09-24-2024 Neutrophils (Bld) [#/Vol] 3.0 10*3/uL 2.0-7.7 [facility] Basophil percentageOrdered B y: Rachel Dalton on 09-24-2024 Basophils/100 WBC (Bld) 0.3 % 0-1 [facility] Blood urea nitrogen (BUN)/cr eatinine ratioOrdered By: Rachel Dalton on 09-24-2024 Urea nitrogen/Creatinine [Mass ratio] 17.4 mg/mg 10-20 [facility] Carbon dioxide measurementOr dered By: Rachel Dalton on 09-24-2024 CO2 [Moles/Vol] 28.0 mmol/L 21.0-32.0 [facility] Chloride measurementOrdered By: eanthompsondino Dalton on 09-24-2024 Chloride [Moles/Vol] 108 mmol/L High 98-107 [facility] Eosinophil percentageOrdered By: eanthompsondino Dalton on 09-24-2024 Eosinophils/100 WBC (Bld) 3.7 % 0-5 [facility] Erythrocyte distribution wid th (RBC) [Ratio]Ordered By: jose miguel Dalton on 09-24-2024 Erythrocyte distribution width (RBC) [Entitic vol] 40.9 fL 35.1-43.9 [facility] Erythrocyte distribution wid th ratioOrdered By: Rachel Dalton on 09-24-2024 Erythrocyte distribution width (RBC) [Ratio] 12.1 % 11.6-14.6 [facility] Estimated glomerular filtrat ion rate (GFR) AmericanOrdered By: Rachel Dalton on 09-24-2024 Estimated GFR (MDRD) Amer 74 mL/min >60 [facility] Comment on above: GFR Calc Glomerular filtration rate ( GFR) estimationOrdered By: Rachel Dalton on 09-24-2024 Estimated GFR (MDRD) Non-Af Amer 61 mL/min >60 [facility] Comment on above: Non- GFR Calc Glucose measurementOrdered B y: Rachel Dalton on 09-24-2024 Glucose [Mass/Vol] 148 mg/dL High 74-106 [facility] Comment on above: Fasting Glucose resu lt greater than or equal to 126 mg/dL suggests DIABETES MELLITUS per A.D.A. criteria. Hematocrit Auto (Bld) [Volum e fraction]Ordered By: Rachel Dalton on 09-24-2024 Hematocrit (Bld) [Volume fraction] 35.1 % Low 37-47 [facility] Hemoglobin measurementOrdere d By: Rachel Dalton on 09-24-2024 Hemoglobin (Bld) [Mass/Vol] 11.5 g/dL Low 12.0-15.0 [facility] Immature granulocytes/100 WB C Auto (Bld)Ordered By: Rachel Dalton on 09-24-2024 Immature granulocytes/100 WBC (Bld) 0.300 % 0.0-0.9 [facility] Comment on above: IG% - Immature Granu locytes (promyelocytes, myelocytes and metamyelocytes) > 1% indicates that a LEFT SHIFT is Present. Lymphocytes Auto (Unsp spec) [#/Vol]Ordered By: Rachel Dalton on 09-24-2024 Lymphocytes (Bld) [#/Vol] 2.58 10*3/uL 0.83-4.51 [facility] Lymphocytes/100 WBC Auto (Un sp spec)Ordered By: Rachel Dalton on 09-24-2024 Lymphocytes/100 WBC (Bld) 41.9 % High 19-41 [facility] MCV (mean corpuscular volume ) determinationOrdered By: Rachel Dalton on 09-24-2024 MCV (RBC) [Entitic vol] 92.1 fL 81-99 [facility] Mean corpuscular hemoglobin (MCH) determinationOrdered By: Rachel Dalton on 09-24-2024 MCH (RBC) [Entitic mass] 30.2 pg 27.0-32.0 [facility] Mean corpuscular hemoglobin concentration (MCHC) determinationOrdered By: Rachel Dalton on 09-24-2024 MCHC (RBC) [Mass/Vol] 32.8 g/dL 32-36 [facility] Mean platelet volume determi nationOrdered By: Rachel Dalton on 09-24-2024 Platelet mean volume (Bld) [Entitic vol] 10.2 fL 6.2-12.0 [facility] Monocyte percentageOrdered B y: Rachel Dalton on 09-24-2024 Monocytes/100 WBC (Bld) 5.0 % 0-10 [facility] Neutrophil percentageOrdered By: Rachel Dalton on 09-24-2024 Neutrophils/100 WBC (Bld) 48.8 % 47-70 [facility] Nucleated red blood cell per centageOrdered By: Rachel Dalton on 09-24-2024 Nucleated RBC/100 WBC (Bld) [Ratio] 0 % 0-5 [facility] Platelet countOrdered By: Chase Dalton on 09-24-2024 Platelets (Bld) [#/Vol] 222 10*3/uL 150-450 [facility] Potassium measurementOrdered By: Rachel Dalton on 09-24-2024 Potassium [Moles/Vol] 4.3 mmol/L 3.5-5.1 [facility] RBC Auto (Bld) [#/Vol]Ordere d By: Rachel Dalton on 09-24-2024 RBC (Bld) [#/Vol] 3.81 10*6/uL Low 4.2-5.4 [facility] Serum anion gap measurementO rdered By: Rachel Dalton on 09-24-2024 Anion gap [Moles/Vol] 3 mmol/L Low 5-15 [facility] Serum or plasma calcium khoi urement (mass/volume)Ordered By: Rachel Dalton on 09-24-2024 Calcium [Mass/Vol] 10.3 mg/dL High 8.5-10.1 [facility] Serum or plasma creatinine m easurement (mass/volume)Ordered By: Rachel Dalton on 09-24-2024 Creatinine [Mass/Vol] 0.92 mg/dL 0.55-1.02 [facility] Comment on above: The validity of the calculated GFR & GFRAA in patients over 70 years has not been determined. Clinical correlation is essential. Serum or plasma urea nitroge n measurement (mass/volume)Ordered By: Rachel Dalton on 09-24-2024 Urea nitrogen [Mass/Vol] 16 mg/dL 7-18 [facility] Sodium levelOrdered By: Jamel Dalton on 09-24-2024 Sodium [Moles/Vol] 140 mmol/L 136-145 [facility] White blood cell (WBC) count Ordered By: Rachel Dalton on 09-24-2024 WBC (Bld) [#/Vol] 6.2 10*3/uL 4.4-11.0 [facility] Absolute neutrophil countOrd ered By: Rachel Dalton on 09-13-2024 Neutrophils (Bld) [#/Vol] 5.7 10*3/uL 2.0-7.7 [facility] Basophil percentageOrdered B y: Rachel Dalton on 09-13-2024 Basophils/100 WBC (Bld) 0.2 % 0-1 [facility] Bilirubin directOrdered By: Rachel Dalton on 09-13-2024 Bilirubin.direct [Mass/Vol] 0.17 mg/dL 0.00-0.30 [facility] Bilirubin, totalOrdered By: Rachel Dalton on 09-13-2024 Bilirubin [Mass/Vol] 0.80 mg/dL 0.20-1.00 [facility] Comment on above: For patients on eltr ombopag therapy, use of Dimension [place] TBIL is not recommended. Blood urea nitrogen (BUN)/cr eatinine ratioOrdered By: Rahcel Dalton on 09-13-2024 Urea nitrogen/Creatinine [Mass ratio] 23.4 mg/mg High 10-20 [facility] Carbon dioxide measurementOr dered By: Rachel Dalton on 09-13-2024 CO2 [Moles/Vol] 23.0 mmol/L 21.0-32.0 [facility] Chloride measurementOrdered By: Rachel Dalton on 09-13-2024 Chloride [Moles/Vol] 105 mmol/L 98-107 [facility] Eosinophil percentageOrdered By: Rachel Dalton on 09-13-2024 Eosinophils/100 WBC (Bld) 0.7 % 0-5 [facility] Erythrocyte distribution wid th (RBC) [Ratio]Ordered By: Rachel Dalton on 09-13-2024 Erythrocyte distribution width (RBC) [Entitic vol] 41.8 fL 35.1-43.9 [facility] Erythrocyte distribution wid th ratioOrdered By: Rachel Dalton on 09-13-2024 Erythrocyte distribution width (RBC) [Ratio] 12.3 % 11.6-14.6 [facility] Estimated glomerular filtrat ion rate (GFR) AmericanOrdered By: Rachel Dalton on 09-13-2024 Estimated GFR (MDRD) Amer 85 mL/min >60 [facility] Comment on above: GFR Calc Glomerular filtration rate ( GFR) estimationOrdered By: Rachel Dalton on 09-13-2024 Estimated GFR (MDRD) Non-Af Amer 71 mL/min >60 [facility] Comment on above: Non- GFR Calc Glucose measurementOrdered B y: Rachel Dalton on 09-13-2024 Glucose [Mass/Vol] 151 mg/dL High 74-106 [facility] Comment on above: Fasting Glucose resu lt greater than or equal to 126 mg/dL suggests DIABETES MELLITUS per A.D.A. criteria. Hematocrit Auto (Bld) [Volum e fraction]Ordered By: Rachel Dalton on 09-13-2024 Hematocrit (Bld) [Volume fraction] 36.5 % Low 37-47 [facility] Hemoglobin A1c percentageOrd ered By: Rachel Dalton on 09-13-2024 HbA1c (Bld) [Mass fraction] 6.5 % High 3.8-5.6 [facility] Comment on above: Normal < 5.7 % Predi abetic 5.7 - 6.4 % Diabetic >or= 6.5 % Please note range changes. Hemoglobin measurementOrdere d By: Rachel Dalton on 09-13-2024 Hemoglobin (Bld) [Mass/Vol] 11.7 g/dL Low 12.0-15.0 [facility] Immature granulocytes/100 WB C Auto (Bld)Ordered By: Rachel Dalton on 09-13-2024 Immature granulocytes/100 WBC (Bld) 0.200 % 0.0-0.9 [facility] Comment on above: IG% - Immature Granu locytes (promyelocytes, myelocytes and metamyelocytes) > 1% indicates that a LEFT SHIFT is Present. Laboratory - Chemistry and C hemistry - challengeOrdered By: Rachel Dalton on 09-13-2024 AST [Catalytic activity/Vol] 15 U/L 15-37 [facility] Lymphocytes Auto (Unsp spec) [#/Vol]Ordered By: Rachel Dalton on 09-13-2024 Lymphocytes (Bld) [#/Vol] 2.00 10*3/uL 0.83-4.51 [facility] Lymphocytes/100 WBC Auto (Un sp spec)Ordered By: Rachel Dalton on 09-13-2024 Lymphocytes/100 WBC (Bld) 23.8 % 19-41 [facility] MCV (mean corpuscular volume ) determinationOrdered By: Rachel Dalton on 09-13-2024 MCV (RBC) [Entitic vol] 92.2 fL 81-99 [facility] Mean corpuscular hemoglobin (MCH) determinationOrdered By: Rachel Dalton on 09-13-2024 MCH (RBC) [Entitic mass] 29.5 pg 27.0-32.0 [facility] Mean corpuscular hemoglobin concentration (MCHC) determinationOrdered By: Rachel Dalton on 09-13-2024 MCHC (RBC) [Mass/Vol] 32.1 g/dL 32-36 [facility] Mean platelet volume determi nationOrdered By: Rachel Dalton on 09-13-2024 Platelet mean volume (Bld) [Entitic vol] 10.4 fL 6.2-12.0 [facility] Monocyte percentageOrdered B y: Rachel Dalton on 09-13-2024 Monocytes/100 WBC (Bld) 7.0 % 0-10 [facility] Neutrophil percentageOrdered By: Rachel Dalton on 09-13-2024 Neutrophils/100 WBC (Bld) 68.1 % 47-70 [facility] Nucleated red blood cell per centageOrdered By: Rachel Dalton on 09-13-2024 Nucleated RBC/100 WBC (Bld) [Ratio] 0 % 0-5 [facility] Platelet countOrdered By: Chase Dalton on 09-13-2024 Platelets (Bld) [#/Vol] 194 10*3/uL 150-450 [facility] Potassium measurementOrdered By: Rachel Dalton on 09-13-2024 Potassium [Moles/Vol] 4.2 mmol/L 3.5-5.1 [facility] RBC Auto (Bld) [#/Vol]Ordere d By: Rachel Dalton on 09-13-2024 RBC (Bld) [#/Vol] 3.96 10*6/uL Low 4.2-5.4 [facility] Serum anion gap measurementO rdered By: Rachel Dalton on 09-13-2024 Anion gap [Moles/Vol] 8 mmol/L 5-15 [facility] Serum globulin measurementOr dered By: Rachel Dalton on 09-13-2024 Globulin (S) [Mass/Vol] 3.9 g/dL 2.2-4.2 [facility] Serum or plasma alanine jaimes otransferase (ALT) measurementOrdered By: Rachel Dalton on 09-13-2024 ALT [Catalytic activity/Vol] 10 U/L Low 13-56 [facility] Serum or plasma albumin khoi urement (mass/volume)Ordered By: Rachel Dalton on 09-13-2024 Albumin [Mass/Vol] 3.0 g/dL Low 3.2-5.0 [facility] Serum or plasma alkaline luh sphatase measurementOrdered By: Rachel Dalton on 09-13-2024 ALP [Catalytic activity/Vol] 73 U/L 45-117 [facility] Serum or plasma calcium khoi urement (mass/volume)Ordered By: Rachel Dalton on 09-13-2024 Calcium [Mass/Vol] 10.0 mg/dL 8.5-10.1 [facility] Serum or plasma creatinine m easurement (mass/volume)Ordered By: Rachel Dalton on 09-13-2024 Creatinine [Mass/Vol] 0.81 mg/dL 0.55-1.02 [facility] Comment on above: The validity of the calculated GFR & GFRAA in patients over 70 years has not been determined. Clinical correlation is essential. Serum or plasma urea nitroge n measurement (mass/volume)Ordered By: Rachel aDlton on 09-13-2024 Urea nitrogen [Mass/Vol] 19 mg/dL High 7-18 [facility] Sodium levelOrdered By: Jamel Dalton on 09-13-2024 Sodium [Moles/Vol] 136 mmol/L 136-145 [facility] TSH QnOrdered By: Rachel Dalton on 09-13-2024 Thyroid Stimulating Hormone (TSH) 0.559 uIU/mL 0.358-3.740 [facility] Total proteinOrdered By: Steven Dalton on 09-13-2024 Protein [Mass/Vol] 6.9 g/dL 6.4-8.2 [facility] White blood cell (WBC) count Ordered By: Rachel Dalton on 09-13-2024 WBC (Bld) [#/Vol] 8.4 10*3/uL 4.4-11.0 [facility] Bilirubin Test strip Ql (U)O rdered By: Rachel Dalton on 08-29-2024 Bilirubin Ql (U) Negative Negative [facility] Epithelial cells.squamous LM Ql (Urine sed)Ordered By: Rachel Dalton on 08-29-2024 Epithelial cells.squamous LM.HPF (Urine sed) [#/Area] 0 /[HPF] 5-10 [facility] Glucose Ql (U)Ordered By: Chase Dalton on 08-29-2024 Urine Glucose (UA) Normal mg/dl Normal [facility] Ketones Test strip Ql (U)Ord ered By: Rachel Dalton on 08-29-2024 Ketones Ql (U) Negative Negative [facility] Microscopic analysis of urin e for red blood cells (RBC)Ordered By: Rachel Dalton on 08-29-2024 Urine RBC 0 SEEN /hpf 0-5 [facility] Mucus LM Ql (Urine sed)Order ed By: Rachel Dalton on 08-29-2024 Mucus Ql (Urine sed) 0 SEEN /hpf [facility] Nitrite Test strip Ql (U)Ord ered By: Rachel Dalton on 08-29-2024 Nitrite Ql (U) Negative Negative [facility] Protein Test strip Ql (U)Ord ered By: Rachel Dalton on 08-29-2024 Protein Ql (U) 30 mg/dl High Negative [facility] Urine blood detectionOrdered By: Rachel Dalton on 08-29-2024 Urine Occult Blood 25 /ul High Negative [facility] Urine clarityOrdered By: Steven Dalton on 08-29-2024 Clarity (U) Sl. Cloudy Clear [facility] Urine color determinationOrd ered By: Rachel Dalton on 08-29-2024 Color (U) Yellow Yellow [facility] Urine cultureOrdered By: Steven Dalton on 08-29-2024 Bacteria identified Cx Nom (U) Aerococcus urinae Abnormal [facility] Urine leukocyte esterase det ection by dipstickOrdered By: Rachel Dalton on 08-29-2024 Leukocyte esterase Test strip Ql (U) 100 /ul High Negative [facility] Urine pHOrdered By: Lashanda charles Tylerlibiacharles on 08-29-2024 pH (U) 6.5 [pH] 5.0 - 8.0 [facility] Urine sediment bacteria coun t by microscopy (number/high power field)Ordered By: Rachel Dalton on 08-29-2024 Bacteria LM.HPF (Urine sed) [#/Area] 0 /[HPF] None Seen [facility] Urine specific gravity measu rementOrdered By: Rachel Dalton on 08-29-2024 Specific gravity (U) [Rel density] 1.010 1.002-1.030 [facility] Urobilinogen Ql (U)Ordered B y: Rachel Scottlibiacharles on 08-29-2024 Urine Urobilinogen Normal mg/dl Normal [facility] White blood cell countOrdere d By: Rachel Dalton on 08-29-2024 Urine WBC 0-5 SEEN /hpf 0-5 [facility] Absolute neutrophil countOrd ered By: Rachel Dalton on 08-20-2024 Neutrophils (Bld) [#/Vol] 4.5 10*3/uL 2.0-7.7 [facility] Basophil percentageOrdered B y: Rachel Scottlibiacharles on 08-20-2024 Basophils/100 WBC (Bld) 0.4 % 0-1 [facility] Blood urea nitrogen (BUN)/cr eatinine ratioOrdered By: Rachel Dalton on 08-20-2024 Urea nitrogen/Creatinine [Mass ratio] 14.4 mg/mg 10-20 [facility] Carbon dioxide measurementOr dered By: Rachel Dalton on 08-20-2024 CO2 [Moles/Vol] 26.0 mmol/L 21.0-32.0 [facility] Chloride measurementOrdered By: Rachel Dalton on 08-20-2024 Chloride [Moles/Vol] 109 mmol/L High 98-107 [facility] Eosinophil percentageOrdered By: Rachel Dalton on 08-20-2024 Eosinophils/100 WBC (Bld) 2.3 % 0-5 [facility] Erythrocyte distribution wid th (RBC) [Ratio]Ordered By: Rachel Dalton on 08-20-2024 Erythrocyte distribution width (RBC) [Entitic vol] 43.2 fL 35.1-43.9 [facility] Erythrocyte distribution wid th ratioOrdered By: eanthompsondino Dalton on 08-20-2024 Erythrocyte distribution width (RBC) [Ratio] 12.5 % 11.6-14.6 [facility] Estimated glomerular filtrat ion rate (GFR) AmericanOrdered By: Rachel Dalton on 08-20-2024 Estimated GFR (MDRD) Amer 76 mL/min >60 [facility] Comment on above: GFR Calc Glomerular filtration rate ( GFR) estimationOrdered By: Rachel Dalton on 08-20-2024 Estimated GFR (MDRD) Non-Af Amer 63 mL/min >60 [facility] Comment on above: Non- GFR Calc Glucose measurementOrdered B y: Rachel Dalton on 08-20-2024 Glucose [Mass/Vol] 148 mg/dL High 74-106 [facility] Comment on above: Fasting Glucose resu lt greater than or equal to 126 mg/dL suggests DIABETES MELLITUS per A.D.A. criteria. Hematocrit Auto (Bld) [Volum e fraction]Ordered By: Rachel Dalton on 08-20-2024 Hematocrit (Bld) [Volume fraction] 35.7 % Low 37-47 [facility] Hemoglobin measurementOrdere d By: Rachel Dalton on 08-20-2024 Hemoglobin (Bld) [Mass/Vol] 11.6 g/dL Low 12.0-15.0 [facility] Immature granulocytes/100 WB C Auto (Bld)Ordered By: jose miguel Dalton on 08-20-2024 Immature granulocytes/100 WBC (Bld) 0.600 % 0.0-0.9 [facility] Comment on above: IG% - Immature Granu locytes (promyelocytes, myelocytes and metamyelocytes) > 1% indicates that a LEFT SHIFT is Present. Lymphocytes Auto (Unsp spec) [#/Vol]Ordered By: Rachel Dalton on 08-20-2024 Lymphocytes (Bld) [#/Vol] 2.71 10*3/uL 0.83-4.51 [facility] Lymphocytes/100 WBC Auto (Un sp spec)Ordered By: Rahcel Scottlibiacharles on 08-20-2024 Lymphocytes/100 WBC (Bld) 34.3 % 19-41 [facility] MCV (mean corpuscular volume ) determinationOrdered By: Rachel Dalton on 08-20-2024 MCV (RBC) [Entitic vol] 95.2 fL 81-99 [facility] Mean corpuscular hemoglobin (MCH) determinationOrdered By: Rachel Dalton on 08-20-2024 MCH (RBC) [Entitic mass] 30.9 pg 27.0-32.0 [facility] Mean corpuscular hemoglobin concentration (MCHC) determinationOrdered By: Rachel Dalton on 08-20-2024 MCHC (RBC) [Mass/Vol] 32.5 g/dL 32-36 [facility] Mean platelet volume determi nationOrdered By: Rachel Dalton on 08-20-2024 Platelet mean volume (Bld) [Entitic vol] 9.7 fL 6.2-12.0 [facility] Monocyte percentageOrdered B y: Rachel Dalton on 08-20-2024 Monocytes/100 WBC (Bld) 5.2 % 0-10 [facility] Neutrophil percentageOrdered By: Rachel Dalton on 08-20-2024 Neutrophils/100 WBC (Bld) 57.2 % 47-70 [facility] Nucleated red blood cell per centageOrdered By: Rachel Dalton on 08-20-2024 Nucleated RBC/100 WBC (Bld) [Ratio] 0 % 0-5 [facility] Platelet countOrdered By: Ef eanluis Scottlibiacharles on 08-20-2024 Platelets (Bld) [#/Vol] 267 10*3/uL 150-450 [facility] Potassium measurementOrdered By: Rachel Dalton on 08-20-2024 Potassium [Moles/Vol] 4.5 mmol/L 3.5-5.1 [facility] RBC Auto (Bld) [#/Vol]Ordere d By: Rachel Tylerraysa on 08-20-2024 RBC (Bld) [#/Vol] 3.75 10*6/uL Low 4.2-5.4 [facility] Serum anion gap measurementO rdered By: Rachel Dalton on 08-20-2024 Anion gap [Moles/Vol] 4 mmol/L Low 5-15 [facility] Serum or plasma calcium khoi urement (mass/volume)Ordered By: Rachel Dalton on 08-20-2024 Calcium [Mass/Vol] 10.2 mg/dL High 8.5-10.1 [facility] Serum or plasma creatinine m easurement (mass/volume)Ordered By: Rachel Dalton on 08-20-2024 Creatinine [Mass/Vol] 0.90 mg/dL 0.55-1.02 [facility] Comment on above: The validity of the calculated GFR & GFRAA in patients over 70 years has not been determined. Clinical correlation is essential. Serum or plasma urea nitroge n measurement (mass/volume)Ordered By: Rachel Dalton on 08-20-2024 Urea nitrogen [Mass/Vol] 13 mg/dL 7-18 [facility] Sodium levelOrdered By: Chaseean luis Tylerlibiacharles on 08-20-2024 Sodium [Moles/Vol] 139 mmol/L 136-145 [facility] White blood cell (WBC) count Ordered By: Rachel Dalton on 08-20-2024 WBC (Bld) [#/Vol] 7.9 10*3/uL 4.4-11.0 [facility] Basic Metabolic Profile (BMP )on 08-12-2024 BUN/CRE 39.1 RATIO High 10-20 [facility] Comment on above: Performed By: #### L 500.2500, L100.0100 ####[facility] [id number] [place], [address] CA,Total 10.0 mg/dL Normal 8.5-10.1 [facility] Comment on above: Performed By: #### L 500.2500, L100.0100 ####[facility] [id number] [place], [address] Chloride [Moles/Vol] 106 mmol/L Normal 98-107 [facility] Comment on above: Performed By: #### L 500.2500, L100.0100 ####[facility] [id number] [place], [address] CO2 [Moles/Vol] 21.0 mmol/L Normal 21.0-32.0 [facility] Comment on above: Performed By: #### L 500.2500, L100.0100 ####[facility] [id number] [place], [address] Creatinine [Mass/Vol] 0.87 mg/dL Normal 0.55-1.02 [facility] Comment on above: Result Comment: The validity of the calculated GFR GFRAA in patients over70 years has not been determined. Clinical correlation isessential. Performed By: #### L 500.2500, L100.0100 ####[facility] [id number] [place], [address] ECRCL 36.42 ml/min Normal [facility] Comment on above: Performed By: #### L 500.2500, L100.0100 ####[facility] [id number] [place], [address] EST GFR - AA 79 mL/min Normal >60 [facility] Comment on above: Result Comment: Afri can [place] GFR Calc Performed By: #### L 500.2500, L100.0100 ####[facility] [address] [place], [address] GAP 7 Normal 5-15 [facility] Comment on above: Performed By: #### L 500.2500, L100.0100 ####[facility] [id number] [place], [address] GFR/1.73 sq M.predicted among non-blacks MDRD (S/P/Bld) [Vol rate/Area] 65 mL/min/{1.73_m2} Normal >60 [facility] Comment on above: Result Comment: Non- GFR Calc Performed By: #### L 500.2500, L100.0100 ####[facility] [id number] [place], [address] Glucose [Mass/Vol] 159 mg/dL High 74-106 [facility] Comment on above: Result Comment: Fast ing Glucose result greater than or equal to 126 mg/dLsuggests DIABETES MELLITUS per A.D.A. criteria. Performed By: #### L 500.2500, L100.0100 ####[facility] [address] [place], [address] Potassium [Moles/Vol] 3.9 mmol/L Normal 3.5-5.1 [facility] Comment on above: Performed By: #### L 500.2500, L100.0100 ####[facility] [id number] [place], [address] Sodium [Moles/Vol] 134 mmol/L Low 136-145 [facility] Comment on above: Performed By: #### L 500.2500, L100.0100 ####[facility] [facility] [address] [place], [address] Urea nitrogen [Mass/Vol] 34 mg/dL High 7-18 [facility] Comment on above: Performed By: #### L 500.2500, L100.0100 ####[facility] [address] [place], [address] CBC W/Diff, Automatedon 12-0 Absolute Lymph 1.78 X10 3/uL Normal 0.83-4.51 [facility] Comment on above: Performed By: #### L 500.2500, L100.0100 ####[facility] [address] [place], [address] Absolute Neut 8.4 X10 3/uL High 2.0-7.7 [facility] Comment on above: Performed By: #### L 500.2500, L100.0100 ####[facility] [address] [place], [address] Basophils/100 WBC (Bld) 0.4 % Normal 0-1 [facility] Comment on above: Performed By: #### L 500.2500, L100.0100 ####[facility] [address] [place], [address] Eosinophils/100 WBC (Bld) 0.2 % Normal 0-5 [facility] Comment on above: Performed By: #### L 500.2500, L100.0100 ####[facility] [address] [place], [address] Erythrocyte distribution width (RBC) [Ratio] 12.5 % Normal 11.6-14.6 [facility] Comment on above: Performed By: #### L 500.2500, L100.0100 ####[facility] [address] [place], [address] Hematocrit (Bld) [Volume fraction] 34.6 % Low 37-47 [facility] Comment on above: Performed By: #### L 500.2500, L100.0100 ####[facility] [address] [place], [address] Hemoglobin (Bld) [Mass/Vol] 11.8 g/dL Low 12.0-15.0 [facility] Comment on above: Performed By: #### L 500.2500, L100.0100 ####[facility] [address] [place], [address] IG% 1.500 High 0.0-0.9 [facility] Comment on above: Result Comment: IG% - Immature Granulocytes (promyelocytes, myelocytes andmetamyelocytes) > 1% indicates that a LEFT SHIFT is Present. Performed By: #### L 500.2500, L100.0100 ####[facility] [address] [place], [address] Lymphocytes/100 WBC (Bld) 15.4 % Low 19-41 [facility] Comment on above: Performed By: #### L 500.2500, L100.0100 ####[facility] [address] [place], [address] MCH (RBC) [Entitic mass] 31.3 pg Normal 27.0-32.0 [facility] Comment on above: Performed By: #### L 500.2500, L100.0100 ####[facility] [address] [place], [address] MCHC (RBC) [Mass/Vol] 34.1 g/dL Normal 32-36 [facility] Comment on above: Performed By: #### L 500.2500, L100.0100 ####[facility] [address] [place], [address] MCV (RBC) [Entitic vol] 91.8 fL Normal 81-99 [facility] Comment on above: Performed By: #### L 500.2500, L100.0100 ####[facility] [address] [place], [address] Monocytes/100 WBC (Bld) 10.1 % High 0-10 [facility] Comment on above: Performed By: #### L 500.2500, L100.0100 ####[facility] [address] [place], [address] Neutrophils/100 WBC (Bld) 72.4 % High 47-70 [facility] Comment on above: Performed By: #### L 500.2500, L100.0100 ####[facility] [address] [place], [address] Nucleated RBC (Bld) [#/Vol] 0 10*3/uL Normal 0-5 [facility] Comment on above: Performed By: #### L 500.2500, L100.0100 ####[facility] [address] [place], [address] Platelet mean volume (Bld) [Entitic vol] 11.4 fL Normal 6.2-12.0 [facility] Comment on above: Performed By: #### L 500.2500, L100.0100 ####[facility] [address] [place], [address] Platelets (Bld) [#/Vol] 143 10*3/uL Low 150-450 [facility] Comment on above: Performed By: #### L 500.2500, L100.0100 ####[facility] [address] [place], [address] RBC (Bld) [#/Vol] 3.77 10*6/uL Low 4.2-5.4 [facility] Comment on above: Performed By: #### L 500.2500, L100.0100 ####[facility] [address] [place], [address] RDW SD 42.0 fl Normal 35.1-43.9 [facility] Comment on above: Performed By: #### L 500.2500, L100.0100 ####[facility] [address] [place], [address] WBC (Bld) [#/Vol] 11.6 10*3/uL High 4.4-11.0 [facility] Comment on above: Performed By: #### L 500.2500, L100.0100 ####[facility] [address] [place], [address] Urine Cultureon 08-12-2024 URC Normal [facility] Comment on above: Performed By: #### M 100.2200 ####[facility] [address] [place], [address] Basic Metabolic Profile (BMP )on 08-11-2024 BUN/CRE 35.2 RATIO High 10-20 [facility] Comment on above: Performed By: #### L 100.0500, L500.2500 ####[facility] [address] [place], [address] CA,Total 9.6 mg/dL Normal 8.5-10.1 [facility] Comment on above: Performed By: #### L 100.0500, L500.2500 ####[facility] [address] [place], [address] Chloride [Moles/Vol] 105 mmol/L Normal 98-107 [facility] Comment on above: Performed By: #### L 100.0500, L500.2500 ####[facility] [address] [place], [address] CO2 [Moles/Vol] 20.0 mmol/L Low 21.0-32.0 [facility] Comment on above: Performed By: #### L 100.0500, L500.2500 ####[facility] [address] [place], [address] Creatinine [Mass/Vol] 1.05 mg/dL High 0.55-1.02 [facility] Comment on above: Result Comment: The validity of the calculated GFR GFRAA in patients over70 years has not been determined. Clinical correlation isessential. Performed By: #### L 100.0500, L500.2500 ####[facility] [address] [place], [address] ECRCL 30.17 ml/min Normal [facility] Comment on above: Performed By: #### L 100.0500, L500.2500 ####[facility] [address] [place], [address] EST GFR - AA 63 mL/min Normal >60 [facility] Comment on above: Result Comment: Afri can [place] GFR Calc Performed By: #### L 100.0500, L500.2500 ####[facility] [address] [place], [address] GAP 9 Normal 5-15 [facility] Comment on above: Performed By: #### L 100.0500, L500.2500 ####[facility] [address] [place], [address] GFR/1.73 sq M.predicted among non-blacks MDRD (S/P/Bld) [Vol rate/Area] 52 mL/min/{1.73_m2} Low >60 [facility] Comment on above: Result Comment: Non- GFR Calc Performed By: #### L 100.0500, L500.2500 ####[facility] [address] [place], [address] Glucose [Mass/Vol] 163 mg/dL High 74-106 [facility] Comment on above: Result Comment: Fast ing Glucose result greater than or equal to 126 mg/dLsuggests DIABETES MELLITUS per A.D.A. criteria. Performed By: #### L 100.0500, L500.2500 ####[facility] [address] [place], [address] Potassium [Moles/Vol] 4.0 mmol/L Normal 3.5-5.1 [facility] Comment on above: Performed By: #### L 100.0500, L500.2500 ####[facility] [address] [place], [address] Sodium [Moles/Vol] 134 mmol/L Low 136-145 [facility] Comment on above: Performed By: #### L 100.0500, L500.2500 ####[facility] [address] [place], [address] Urea nitrogen [Mass/Vol] 37 mg/dL High 7-18 [facility] Comment on above: Performed By: #### L 100.0500, L500.2500 ####[facility] [address] [place], [address] CBC-Complete Blood Cnt No Di ffon 08-11-2024 Erythrocyte distribution width (RBC) [Ratio] 12.6 % Normal 11.6-14.6 [facility] Comment on above: Performed By: #### L 100.0500, L500.2500 ####[facility] [address] [place], [address] Hematocrit (Bld) [Volume fraction] 32.5 % Low 37-47 [facility] Comment on above: Performed By: #### L 100.0500, L500.2500 ####[facility] [address] [place], [address] Hemoglobin (Bld) [Mass/Vol] 11.1 g/dL Low 12.0-15.0 [facility] Comment on above: Performed By: #### L 100.0500, L500.2500 ####[facility] [address] [place], [address] MCH (RBC) [Entitic mass] 31.6 pg Normal 27.0-32.0 [facility] Comment on above: Performed By: #### L 100.0500, L500.2500 ####[facility] [address] [place], [address] MCHC (RBC) [Mass/Vol] 34.2 g/dL Normal 32-36 [facility] Comment on above: Performed By: #### L 100.0500, L500.2500 ####[facility] [address] [place], [address] MCV (RBC) [Entitic vol] 92.6 fL Normal 81-99 [facility] Comment on above: Performed By: #### L 100.0500, L500.2500 ####[facility] [address] [place], [address] Platelet mean volume (Bld) [Entitic vol] 11.1 fL Normal 6.2-12.0 [facility] Comment on above: Performed By: #### L 100.0500, L500.2500 ####[facility] [address] [place], [address] Platelets (Bld) [#/Vol] 109 10*3/uL Low 150-450 [facility] Comment on above: Performed By: #### L 100.0500, L500.2500 ####[facility] [address] [place], [address] RBC (Bld) [#/Vol] 3.51 10*6/uL Low 4.2-5.4 [facility] Comment on above: Performed By: #### L 100.0500, L500.2500 ####[facility] [address] [place], [address] RDW SD 42.8 fl Normal 35.1-43.9 [facility] Comment on above: Performed By: #### L 100.0500, L500.2500 ####[facility] [address] [place], [address] WBC (Bld) [#/Vol] 11.6 10*3/uL High 4.4-11.0 [facility] Comment on above: Performed By: #### L 100.0500, L500.2500 ####[facility] [address] [place], [address] Lactic Acidon 08-11-2024 Lactate [Moles/Vol] 1.3 mmol/L Normal 0.4-1.9 [facility] Comment on above: Performed By: #### L 503.6005 ####[facility] [address] [place], [address] 12 Lead EKGon 08-10-2024 12 Lead EKG Normal [facility] Abdomen/Pelvis W IV Cont ONL Yon 08-10-2024 Abdomen/Pelvis W IV Cont ONLY Normal [facility] CBC W/Diff, Automatedon - Absolute Lymph 0.65 X10 3/uL Low 0.83-4.51 [facility] Comment on above: Performed By: #### L 100.0100, L500.4050, L503.6005, L501.2450, L501.4020 ####[facility] [address] [place], [address] Absolute Neut 7.3 X10 3/uL Normal 2.0-7.7 [facility] Comment on above: Performed By: #### L 100.0100, L500.4050, L503.6005, L501.2450, L501.4020 ####[facility] [address] [place], [address] Basophils/100 WBC (Bld) 0.5 % Normal 0-1 [facility] Comment on above: Performed By: #### L 100.0100, L500.4050, L503.6005, L501.2450, L501.4020 ####[facility] [address] [place], [address] Eosinophils/100 WBC (Bld) 1.9 % Normal 0-5 [facility] Comment on above: Performed By: #### L 100.0100, L500.4050, L503.6005, L501.2450, L501.4020 ####[facility] [address] [place], [address] Erythrocyte distribution width (RBC) [Ratio] 12.3 % Normal 11.6-14.6 [facility] Comment on above: Performed By: #### L 100.0100, L500.4050, L503.6005, L501.2450, L501.4020 ####[facility] [address] [place], [address] Hematocrit (Bld) [Volume fraction] 35.3 % Low 37-47 [facility] Comment on above: Performed By: #### L 100.0100, L500.4050, L503.6005, L501.2450, L501.4020 ####[facility] [address] [place], [address] Hemoglobin (Bld) [Mass/Vol] 12.0 g/dL Normal 12.0-15.0 [facility] Comment on above: Performed By: #### L 100.0100, L500.4050, L503.6005, L501.2450, L501.4020 ####[facility] [address] [place], [address] IG% 0.600 Normal 0.0-0.9 [facility] Comment on above: Result Comment: IG% - Immature Granulocytes (promyelocytes, myelocytes andmetamyelocytes) > 1% indicates that a LEFT SHIFT is Present. Performed By: #### L 100.0100, L500.4050, L503.6005, L501.2450, L501.4020 ####[facility] [address] [place], [address] Lymphocytes/100 WBC (Bld) 7.6 % Low 19-41 [facility] Comment on above: Performed By: #### L 100.0100, L500.4050, L503.6005, L501.2450, L501.4020 ####[facility] [address] [place], [address] MCH (RBC) [Entitic mass] 31.6 pg Normal 27.0-32.0 [facility] Comment on above: Performed By: #### L 100.0100, L500.4050, L503.6005, L501.2450, L501.4020 ####[facility] [address] [place], [address] MCHC (RBC) [Mass/Vol] 34.0 g/dL Normal 32-36 [facility] Comment on above: Performed By: #### L 100.0100, L500.4050, L503.6005, L501.2450, L501.4020 ####[facility] [address] [place], [address] MCV (RBC) [Entitic vol] 92.9 fL Normal 81-99 [facility] Comment on above: Performed By: #### L 100.0100, L500.4050, L503.6005, L501.2450, L501.4020 ####[facility] [address] [place], [address] Monocytes/100 WBC (Bld) 4.1 % Normal 0-10 [facility] Comment on above: Performed By: #### L 100.0100, L500.4050, L503.6005, L501.2450, L501.4020 ####[facility] [address] [place], [address] Neutrophils/100 WBC (Bld) 85.3 % High 47-70 [facility] Comment on above: Performed By: #### L 100.0100, L500.4050, L503.6005, L501.2450, L501.4020 ####[facility] [address] [place], [address] Nucleated RBC (Bld) [#/Vol] 0 10*3/uL Normal 0-5 [facility] Comment on above: Performed By: #### L 100.0100, L500.4050, L503.6005, L501.2450, L501.4020 ####[facility] [address] [place], [address] Platelet mean volume (Bld) [Entitic vol] 11.0 fL Normal 6.2-12.0 [facility] Comment on above: Performed By: #### L 100.0100, L500.4050, L503.6005, L501.2450, L501.4020 ####[facility] [address] [place], [address] Platelets (Bld) [#/Vol] 113 10*3/uL Low 150-450 [facility] Comment on above: Performed By: #### L 100.0100, L500.4050, L503.6005, L501.2450, L501.4020 ####[facility] [address] [place], [address] RBC (Bld) [#/Vol] 3.80 10*6/uL Low 4.2-5.4 [facility] Comment on above: Performed By: #### L 100.0100, L500.4050, L503.6005, L501.2450, L501.4020 ####[facility] [address] [place], [address] RDW SD 42.0 fl Normal 35.1-43.9 [facility] Comment on above: Performed By: #### L 100.0100, L500.4050, L503.6005, L501.2450, L501.4020 ####[facility] [address] [place], [address] WBC (Bld) [#/Vol] 8.6 10*3/uL Normal 4.4-11.0 [facility] Comment on above: Performed By: #### L 100.0100, L500.4050, L503.6005, L501.2450, L501.4020 ####[facility] [address] [place], [address] Chest PA and Lateralon 11-30 -2024 Chest PA and Lateral Normal [facility] Comprehensive Metabolic Prof ilon 08-10-2024 Albumin [Mass/Vol] 2.8 g/dL Low 3.2-5.0 [facility] Comment on above: Order Comment: 'TROP ' Serial specimen #1, #2 or #3: 1 Performed By: #### L 100.0100, L500.4050, L503.6005, L501.2450, L501.4020 ####[facility] [address] [place], [address] Albumin/Globulin [Mass ratio] 0.8 {ratio} Low 0.9-2.4 [facility] Comment on above: Order Comment: 'TROP ' Serial specimen #1, #2 or #3: 1 Performed By: #### L 100.0100, L500.4050, L503.6005, L501.2450, L501.4020 ####[facility] [address] [place], [address] ALK P 149 U/L High 45-117 [facility] Comment on above: Order Comment: 'TROP ' Serial specimen #1, #2 or #3: 1 Performed By: #### L 100.0100, L500.4050, L503.6005, L501.2450, L501.4020 ####[facility] [address] [place], [address] ALT [Catalytic activity/Vol] 45 U/L Normal 13-56 [facility] Comment on above: Order Comment: 'TROP ' Serial specimen #1, #2 or #3: 1 Performed By: #### L 100.0100, L500.4050, L503.6005, L501.2450, L501.4020 ####[facility] [address] [place], [address] AST [Catalytic activity/Vol] 43 U/L High 15-37 [facility] Comment on above: Order Comment: 'TROP ' Serial specimen #1, #2 or #3: 1 Performed By: #### L 100.0100, L500.4050, L503.6005, L501.2450, L501.4020 ####[facility] [address] [place], [address] Bilirubin [Mass/Vol] 0.60 mg/dL Normal 0.20-1.00 [facility] Comment on above: Order Comment: 'TROP ' Serial specimen #1, #2 or #3: 1 Result Comment: For patients on eltrombopag therapy, use of Dimension [place] TBIL is not recommended. Performed By: #### L 100.0100, L500.4050, L503.6005, L501.2450, L501.4020 ####[facility] [address] [place], [address] BUN/CRE 31.9 RATIO High 10-20 [facility] Comment on above: Order Comment: 'TROP ' Serial specimen #1, #2 or #3: 1 Performed By: #### L 100.0100, L500.4050, L503.6005, L501.2450, L501.4020 ####[facility] [address] [place], [address] CA,Total 10.0 mg/dL Normal 8.5-10.1 [facility] Comment on above: Order Comment: 'TROP ' Serial specimen #1, #2 or #3: 1 Performed By: #### L 100.0100, L500.4050, L503.6005, L501.2450, L501.4020 ####[facility] [address] [place], [address] Chloride [Moles/Vol] 101 mmol/L Normal 98-107 [facility] Comment on above: Order Comment: 'TROP ' Serial specimen #1, #2 or #3: 1 Performed By: #### L 100.0100, L500.4050, L503.6005, L501.2450, L501.4020 ####[facility] [address] [place], [address] CO2 [Moles/Vol] 22.0 mmol/L Normal 21.0-32.0 [facility] Comment on above: Order Comment: 'TROP ' Serial specimen #1, #2 or #3: 1 Performed By: #### L 100.0100, L500.4050, L503.6005, L501.2450, L501.4020 ####[facility] [address] [place], [address] Creatinine [Mass/Vol] 1.35 mg/dL High 0.55-1.02 [facility] Comment on above: Order Comment: 'TROP ' Serial specimen #1, #2 or #3: 1 Result Comment: The validity of the calculated GFR GFRAA in patients over70 years has not been determined. Clinical correlation isessential. Performed By: #### L 100.0100, L500.4050, L503.6005, L501.2450, L501.4020 ####[facility] [address] [place], [address] ECRCL 23.54 ml/min Normal [facility] Comment on above: Order Comment: 'TROP ' Serial specimen #1, #2 or #3: 1 Performed By: #### L 100.0100, L500.4050, L503.6005, L501.2450, L501.4020 ####[facility] [address] [place], [address] EST GFR - AA 48 mL/min Low >60 [facility] Comment on above: Order Comment: 'TROP ' Serial specimen #1, #2 or #3: 1 Result Comment: Afri can Liberian GFR Calc Performed By: #### L 100.0100, L500.4050, L503.6005, L501.2450, L501.4020 ####[facility] [address] [place], [address] GAP 9 Normal 5-15 [facility] Comment on above: Order Comment: 'TROP ' Serial specimen #1, #2 or #3: 1 Performed By: #### L 100.0100, L500.4050, L503.6005, L501.2450, L501.4020 ####[facility] [address] [place], [address] GFR/1.73 sq M.predicted among non-blacks MDRD (S/P/Bld) [Vol rate/Area] 39 mL/min/{1.73_m2} Low >60 [facility] Comment on above: Order Comment: 'TROP ' Serial specimen #1, #2 or #3: 1 Result Comment: Non- GFR Calc Performed By: #### L 100.0100, L500.4050, L503.6005, L501.2450, L501.4020 ####[facility] [address] [place], [address] Globulin (S) [Mass/Vol] 3.7 g/dL Normal 2.2-4.2 [facility] Comment on above: Order Comment: 'TROP ' Serial specimen #1, #2 or #3: 1 Performed By: #### L 100.0100, L500.4050, L503.6005, L501.2450, L501.4020 ####[facility] [address] [place], [address] Glucose [Mass/Vol] 191 mg/dL High 74-106 [facility] Comment on above: Order Comment: 'TROP ' Serial specimen #1, #2 or #3: 1 Result Comment: Fast ing Glucose result greater than or equal to 126 mg/dLsuggests DIABETES MELLITUS per A.D.A. criteria. Performed By: #### L 100.0100, L500.4050, L503.6005, L501.2450, L501.4020 ####[facility] [address] [place], [address] Potassium [Moles/Vol] 4.5 mmol/L Normal 3.5-5.1 [facility] Comment on above: Order Comment: 'TROP ' Serial specimen #1, #2 or #3: 1 Performed By: #### L 100.0100, L500.4050, L503.6005, L501.2450, L501.4020 ####[facility] [address] [place], [address] Sodium [Moles/Vol] 132 mmol/L Low 136-145 [facility] Comment on above: Order Comment: 'TROP ' Serial specimen #1, #2 or #3: 1 Performed By: #### L 100.0100, L500.4050, L503.6005, L501.2450, L501.4020 ####[facility] [address] [place], [address] T PROT 6.5 g/dL Normal 6.4-8.2 [facility] Comment on above: Order Comment: 'TROP ' Serial specimen #1, #2 or #3: 1 Performed By: #### L 100.0100, L500.4050, L503.6005, L501.2450, L501.4020 ####[facility] [address] [place], [address] Urea nitrogen [Mass/Vol] 43 mg/dL High 7-18 [facility] Comment on above: Order Comment: 'TROP ' Serial specimen #1, #2 or #3: 1 Performed By: #### L 100.0100, L500.4050, L503.6005, L501.2450, L501.4020 ####[facility] [address] [place], [address] Emergency Department Summary on 08-10-2024 Emergency Department Summary Normal [facility] H AND P Exam - Hospitaliston 08-10-2024 H&P Exam - Hospitalist Normal [facility] L501.4020on 08-10-2024 TROPONIN-I HS 599 pg/mL Invalid Interpretation Code 3.0-54.0 [facility] Comment on above: Order Comment: 'TROP ' Serial specimen #1, #2 or #3: 2 Result Comment: Crit ical Result(s) Called at: 22:15:46 08/10/2024 by: JONATAN. Results read back by Eleazar May Please Note: New Test Units and Gender Specific Reference Ranges. For more information see Policy Stat Procedure [place] High Sensitivity Troponin (TNIH) and attachments. Performed By: #### L 501.4020 ####[facility] [address] [place], [address] TROPONIN-I HS 639 pg/mL Invalid Interpretation Code 3.0-54.0 [facility] Comment on above: Order Comment: 'TROP ' Serial specimen #1, #2 or #3: 1 Result Comment: Crit ical Result(s) Called at: 20:36:30 08/10/2024 by: JONATAN. Results read back by virginia ROGERS Please Note: New Test Units and Gender Specific Reference Ranges. For more information see Policy Stat Procedure [place] High Sensitivity Troponin (TNIH) and attachments. Performed By: #### L 100.0100, L500.4050, L503.6005, L501.2450, L501.4020 ####[facility] [address] [place], [address] Lactic Acidon 08-10-2024 Lactate [Moles/Vol] 2.8 mmol/L Invalid Interpretation Code 0.4-1.9 [facility] Comment on above: Order Comment: Y Result Comment: Crit ical Result(s) Called at: 20:54:25 08/10/2024 by:Pierre Wallace. Results read back by juanito. Performed By: #### L 100.0100, L500.4050, L503.6005, L501.2450, L501.4020 ####[facility] [address] [place], [address] Lipaseon 08-10-2024 Lipase [Catalytic activity/Vol] 16 U/L Normal 13-75 [facility] Comment on above: Order Comment: 'TROP ' Serial specimen #1, #2 or #3: 1 Result Comment: Orin bangura note:LIPASE revised reference range effective 22.New Lipase methodology. Expected to produce lower valuesthan the previous assay method.NEW Reference Range: 13 - 75 U/L Performed By: #### L 100.0100, L500.4050, L503.6005, L501.2450, L501.4020 ####[facility] [address] [place], [address] M100.678on 08-10-2024 M100.678 Pending SARS-CoV-2 (COVID 19) Negative INFLUENZA A Negative INFLUENZA B Negative RSV PCR Negative Normal [facility] Comment on above: Performed By: #### M 100.678, L400.0001 ####[facility] [address] [place], [address] Urinalysis, Completeon 08-10 BACTERIA 2+ /hpf Normal None Seen [facility] Comment on above: Order Comment: COLLE CTOR TO SPECIFY Performed By: #### M 100.678, L400.0001 ####[facility] [address] [place], [address] CAST,WBC 0-5 SEEN Normal None Seen [facility] Comment on above: Order Comment: COLLE CTOR TO SPECIFY Performed By: #### M 100.678, L400.0001 ####[facility] [address] [place], [address] EPI,SQUAMOUS 5-10 SEEN Normal 5-10 [facility] Comment on above: Order Comment: COLLE CTOR TO SPECIFY Performed By: #### M 100.678, L400.0001 ####[facility] [address] [place], [address] Mucus Ql (Urine sed) 2+ /hpf Normal [facility] Comment on above: Order Comment: COLLE CTOR TO SPECIFY Performed By: #### M 100.678, L400.0001 ####[facility] [address] [place], [address] RBC 10-25 SEEN Normal 0-5 [facility] Comment on above: Order Comment: COLLE CTOR TO SPECIFY Performed By: #### M 100.678, L400.0001 ####[facility] [address] [place], [address] WBC 50-100 SEEN Normal 0-5 [facility] Comment on above: Order Comment: COLLE CTOR TO SPECIFY Performed By: #### M 100.678, L400.0001 ####[facility] [address] [place], [address] Orthopedic Visit Reporton Orthopedic Visit Report Normal [facility] Shoulder min 2 Viewson 05-09 Shoulder min 2 Views Normal [facility] Basic Metabolic Profile (BMP )on 04-10-2024 BUN Normal 7-18 [facility] Comment on above: Result Comment: Canc elled via OM: Order cancelled - Patient discharged Performed By: #### L 100.0100, L500.2500 ####[facility] [address] [place], [address] BUN/CRE Normal 10-20 [facility] Comment on above: Result Comment: Canc elled via OM: Order cancelled - Patient discharged Performed By: #### L 100.0100, L500.2500 ####[facility] [address] [place], [address] CA,Total Normal 8.5-10.1 [facility] Comment on above: Result Comment: Canc elled via OM: Order cancelled - Patient discharged Performed By: #### L 100.0100, L500.2500 ####[facility] [address] [place], [address] CL Normal 98-107 [facility] Comment on above: Result Comment: Canc elled via OM: Order cancelled - Patient discharged Performed By: #### L 100.0100, L500.2500 ####[facility] [address], [address] CO2 Normal 21.0-32.0 [facility] Comment on above: Result Comment: Canc elled via OM: Order cancelled - Patient discharged Performed By: #### L 100.0100, L500.2500 ####[facility] [address] [place], [address] CREAT,SERUM Normal 0.55-1.02 [facility] Comment on above: Result Comment: Canc elled via OM: Order cancelled - Patient discharged Performed By: #### L 100.0100, L500.2500 ####[facility] [address] [place], [address] EST GFR Normal >60 [facility] Comment on above: Result Comment: Canc elled via OM: Order cancelled - Patient discharged Performed By: #### L 100.0100, L500.2500 ####[facility] [address] [place], [address] EST GFR - AA Normal >60 [facility] Comment on above: Result Comment: Canc elled via OM: Order cancelled - Patient discharged Performed By: #### L 100.0100, L500.2500 ####[facility] [address], [address] GAP Normal 5-15 [facility] Comment on above: Result Comment: Canc elled via OM: Order cancelled - Patient discharged Performed By: #### L 100.0100, L500.2500 ####[facility] [address] [place], [address] GLU Normal 74-106 [facility] Comment on above: Result Comment: Canc elled via OM: Order cancelled - Patient discharged Performed By: #### L 100.0100, L500.2500 ####[facility] [address] [place], [address] Potassium Normal 3.5-5.1 [facility] Comment on above: Result Comment: Canc elled via OM: Order cancelled - Patient discharged Performed By: #### L 100.0100, L500.2500 ####[facility] [address] [place], [address] Basic Metabolic Profile (BMP) Normal 136-145 [facility] Comment on above: Result Comment: Canc elled via OM: Order cancelled - Patient discharged Performed By: #### L 100.0100, L500.2500 ####[facility] [address] [place], [address] CBC W/Diff, Automatedon 07-3 Absolute Neut Normal 2.0-7.7 [facility] Comment on above: Result Comment: Canc elled via OM: Order cancelled - Patient discharged Performed By: #### L 100.0100, L500.2500 ####[facility] [address] [place], [address] HCT Normal 37-47 [facility] Comment on above: Result Comment: Canc elled via OM: Order cancelled - Patient discharged Performed By: #### L 100.0100, L500.2500 ####[facility] [address] [place], [address] HGB Normal 12.0-15.0 [facility] Comment on above: Result Comment: Canc elled via OM: Order cancelled - Patient discharged Performed By: #### L 100.0100, L500.2500 ####[facility] [address] [place], [address] MCH Normal 27.0-32.0 [facility] Comment on above: Result Comment: Canc elled via OM: Order cancelled - Patient discharged Performed By: #### L 100.0100, L500.2500 ####[facility] [address], [address] MCHC Normal 32-36 [facility] Comment on above: Result Comment: Canc elled via OM: Order cancelled - Patient discharged Performed By: #### L 100.0100, L500.2500 ####[facility] [address] [place], [address] MCV Normal 81-99 [facility] Comment on above: Result Comment: Canc elled via OM: Order cancelled - Patient discharged Performed By: #### L 100.0100, L500.2500 ####[facility] [address] [place], [address] NEUT% Normal 47-70 [facility] Comment on above: Result Comment: Canc elled via OM: Order cancelled - Patient discharged Performed By: #### L 100.0100, L500.2500 ####[facility] [address] [place], [address] PLT Normal 150-450 [facility] Comment on above: Result Comment: Canc elled via OM: Order cancelled - Patient discharged Performed By: #### L 100.0100, L500.2500 ####[facility] [address] [place], [address] RBC Normal 4.2-5.4 [facility] Comment on above: Result Comment: Canc elled via OM: Order cancelled - Patient discharged Performed By: #### L 100.0100, L500.2500 ####[facility] [address], [address] RDW CV Normal 11.6-14.6 [facility] Comment on above: Result Comment: Canc elled via OM: Order cancelled - Patient discharged Performed By: #### L 100.0100, L500.2500 ####[facility] [address] [place], [address] RDW SD Normal 35.1-43.9 [facility] Comment on above: Result Comment: Canc elled via OM: Order cancelled - Patient discharged Performed By: #### L 100.0100, L500.2500 ####[facility] [address] [place], [address] WBC Normal 4.4-11.0 [facility] Comment on above: Result Comment: Canc elled via OM: Order cancelled - Patient discharged Performed By: #### L 100.0100, L500.2500 ####[facility] [address] [place], [address] Basic Metabolic Profile (BMP )on 04-03-2024 BUN Normal 7-18 [facility] Comment on above: Result Comment: Canc elled via OM: Order cancelled - Patient discharged Performed By: #### L 500.2500, L100.0100 ####[facility] [address] [place], [address] BUN/CRE Normal 10-20 [facility] Comment on above: Result Comment: Canc elled via OM: Order cancelled - Patient discharged Performed By: #### L 500.2500, L100.0100 ####[facility] [address] [place], [address] CA,Total Normal 8.5-10.1 [facility] Comment on above: Result Comment: Canc elled via OM: Order cancelled - Patient discharged Performed By: #### L 500.2500, L100.0100 ####[facility] [address] [place], [address] CL Normal 98-107 [facility] Comment on above: Result Comment: Canc elled via OM: Order cancelled - Patient discharged Performed By: #### L 500.2500, L100.0100 ####[facility] [address] [place], [address] CO2 Normal 21.0-32.0 [facility] Comment on above: Result Comment: Canc elled via OM: Order cancelled - Patient discharged Performed By: #### L 500.2500, L100.0100 ####[facility] [address] [place], [address] CREAT,SERUM Normal 0.55-1.02 [facility] Comment on above: Result Comment: Canc elled via OM: Order cancelled - Patient discharged Performed By: #### L 500.2500, L100.0100 ####[facility] [address] [place], [address] EST GFR Normal >60 [facility] Comment on above: Result Comment: Canc elled via OM: Order cancelled - Patient discharged Performed By: #### L 500.2500, L100.0100 ####[facility] [address] [place], [address] EST GFR - AA Normal >60 [facility] Comment on above: Result Comment: Canc elled via OM: Order cancelled - Patient discharged Performed By: #### L 500.2500, L100.0100 ####[facility] [address] [place], [address] GAP Normal 5-15 [facility] Comment on above: Result Comment: Canc elled via OM: Order cancelled - Patient discharged Performed By: #### L 500.2500, L100.0100 ####[facility] [address] [place], [address] GLU Normal 74-106 [facility] Comment on above: Result Comment: Canc elled via OM: Order cancelled - Patient discharged Performed By: #### L 500.2500, L100.0100 ####[facility] [address] [place], [address] Potassium Normal 3.5-5.1 [facility] Comment on above: Result Comment: Canc elled via OM: Order cancelled - Patient discharged Performed By: #### L 500.2500, L100.0100 ####[facility] [address] [place], [address] Basic Metabolic Profile (BMP) Normal 136-145 [facility] Comment on above: Result Comment: Canc elled via OM: Order cancelled - Patient discharged Performed By: #### L 500.2500, L100.0100 ####[facility] [address] [place], [address] CBC W/Diff, Automatedon 07- Absolute Neut Normal 2.0-7.7 [facility] Comment on above: Result Comment: Canc elled via OM: Order cancelled - Patient discharged Performed By: #### L 500.2500, L100.0100 ####[facility] [address] [place], [address] HCT Normal 37-47 [facility] Comment on above: Result Comment: Canc elled via OM: Order cancelled - Patient discharged Performed By: #### L 500.2500, L100.0100 ####[facility] [address] [place], [address] HGB Normal 12.0-15.0 [facility] Comment on above: Result Comment: Canc elled via OM: Order cancelled - Patient discharged Performed By: #### L 500.2500, L100.0100 ####[facility] [address] [place], [address] MCH Normal 27.0-32.0 [facility] Comment on above: Result Comment: Canc elled via OM: Order cancelled - Patient discharged Performed By: #### L 500.2500, L100.0100 ####[facility] [address] [place], [address] MCHC Normal 32-36 [facility] Comment on above: Result Comment: Canc elled via OM: Order cancelled - Patient discharged Performed By: #### L 500.2500, L100.0100 ####[facility] [address] [place], [address] MCV Normal 81-99 [facility] Comment on above: Result Comment: Canc elled via OM: Order cancelled - Patient discharged Performed By: #### L 500.2500, L100.0100 ####[facility] [address] [place], [address] NEUT% Normal 47-70 [facility] Comment on above: Result Comment: Canc elled via OM: Order cancelled - Patient discharged Performed By: #### L 500.2500, L100.0100 ####[facility] [address] [place], [address] PLT Normal 150-450 [facility] Comment on above: Result Comment: Canc elled via OM: Order cancelled - Patient discharged Performed By: #### L 500.2500, L100.0100 ####[facility] [address] [place], [address] RBC Normal 4.2-5.4 [facility] Comment on above: Result Comment: Canc elled via OM: Order cancelled - Patient discharged Performed By: #### L 500.2500, L100.0100 ####[facility] [address] [place], [address] RDW CV Normal 11.6-14.6 [facility] Comment on above: Result Comment: Canc elled via OM: Order cancelled - Patient discharged Performed By: #### L 500.2500, L100.0100 ####[facility] [address] [place], [address] RDW SD Normal 35.1-43.9 [facility] Comment on above: Result Comment: Canc elled via OM: Order cancelled - Patient discharged Performed By: #### L 500.2500, L100.0100 ####[facility] [address] [place], [address] WBC Normal 4.4-11.0 [facility] Comment on above: Result Comment: Canc elled via OM: Order cancelled - Patient discharged Performed By: #### L 500.2500, L100.0100 ####[facility] [address] [place], [address] Basic Metabolic Profile (BMP )on 03-27-2024 BUN Normal 7-18 [facility] Comment on above: Result Comment: Canc elled via OM: Order cancelled - Patient discharged Performed By: #### L 100.0100, L500.2500 ####[facility] [address] [place], [address] BUN/CRE Normal 10-20 [facility] Comment on above: Result Comment: Canc elled via OM: Order cancelled - Patient discharged Performed By: #### L 100.0100, L500.2500 ####[facility] [address] [place], [address] CA,Total Normal 8.5-10.1 [facility] Comment on above: Result Comment: Canc elled via OM: Order cancelled - Patient discharged Performed By: #### L 100.0100, L500.2500 ####[facility] [address] [place], [address] CL Normal 98-107 [facility] Comment on above: Result Comment: Canc elled via OM: Order cancelled - Patient discharged Performed By: #### L 100.0100, L500.2500 ####[facility] [address] [place], [address] CO2 Normal 21.0-32.0 [facility] Comment on above: Result Comment: Canc elled via OM: Order cancelled - Patient discharged Performed By: #### L 100.0100, L500.2500 ####[facility] [address] [place], [address] CREAT,SERUM Normal 0.55-1.02 [facility] Comment on above: Result Comment: Canc elled via OM: Order cancelled - Patient discharged Performed By: #### L 100.0100, L500.2500 ####[facility] [address] [place], [address] EST GFR Normal >60 [facility] Comment on above: Result Comment: Canc elled via OM: Order cancelled - Patient discharged Performed By: #### L 100.0100, L500.2500 ####[facility] [address] [place], [address] EST GFR - AA Normal >60 [facility] Comment on above: Result Comment: Canc elled via OM: Order cancelled - Patient discharged Performed By: #### L 100.0100, L500.2500 ####[facility] [address] [place], [address] GAP Normal 5-15 [facility] Comment on above: Result Comment: Canc elled via OM: Order cancelled - Patient discharged Performed By: #### L 100.0100, L500.2500 ####[facility] [address] [place], [address] GLU Normal 74-106 [facility] Comment on above: Result Comment: Canc elled via OM: Order cancelled - Patient discharged Performed By: #### L 100.0100, L500.2500 ####[facility] [address] [place], [address] Potassium Normal 3.5-5.1 [facility] Comment on above: Result Comment: Canc elled via OM: Order cancelled - Patient discharged Performed By: #### L 100.0100, L500.2500 ####[facility] [address] [place], [address] Basic Metabolic Profile (BMP) Normal 136-145 [facility] Comment on above: Result Comment: Canc elled via OM: Order cancelled - Patient discharged Performed By: #### L 100.0100, L500.2500 ####[facility] [address] [place], [address] CBC W/Diff, Automatedon 07- Absolute Neut Normal 2.0-7.7 [facility] Comment on above: Result Comment: Canc elled via OM: Order cancelled - Patient discharged Performed By: #### L 100.0100, L500.2500 ####[facility] [address] [place], [address] HCT Normal 37-47 [facility] Comment on above: Result Comment: Canc elled via OM: Order cancelled - Patient discharged Performed By: #### L 100.0100, L500.2500 ####[facility] [address] [place], [address] HGB Normal 12.0-15.0 [facility] Comment on above: Result Comment: Canc elled via OM: Order cancelled - Patient discharged Performed By: #### L 100.0100, L500.2500 ####[facility] [address] [place], [address] MCH Normal 27.0-32.0 [facility] Comment on above: Result Comment: Canc elled via OM: Order cancelled - Patient discharged Performed By: #### L 100.0100, L500.2500 ####[facility] [address] [place], [address] MCHC Normal 32-36 [facility] Comment on above: Result Comment: Canc elled via OM: Order cancelled - Patient discharged Performed By: #### L 100.0100, L500.2500 ####[facility] [address] [place], [address] MCV Normal 81-99 [facility] Comment on above: Result Comment: Canc elled via OM: Order cancelled - Patient discharged Performed By: #### L 100.0100, L500.2500 ####[facility] [address] [place], [address] NEUT% Normal 47-70 [facility] Comment on above: Result Comment: Canc elled via OM: Order cancelled - Patient discharged Performed By: #### L 100.0100, L500.2500 ####[facility] [address] [place], [address] PLT Normal 150-450 [facility] Comment on above: Result Comment: Canc elled via OM: Order cancelled - Patient discharged Performed By: #### L 100.0100, L500.2500 ####[facility] [address] [place], [address] RBC Normal 4.2-5.4 [facility] Comment on above: Result Comment: Canc elled via OM: Order cancelled - Patient discharged Performed By: #### L 100.0100, L500.2500 ####[facility] [address] [place], [address] RDW CV Normal 11.6-14.6 [facility] Comment on above: Result Comment: Canc elled via OM: Order cancelled - Patient discharged Performed By: #### L 100.0100, L500.2500 ####[facility] [address] [place], [address] RDW SD Normal 35.1-43.9 [facility] Comment on above: Result Comment: Canc elled via OM: Order cancelled - Patient discharged Performed By: #### L 100.0100, L500.2500 ####[facility] [address] [place], [address] WBC Normal 4.4-11.0 [facility] Comment on above: Result Comment: Canc elled via OM: Order cancelled - Patient discharged Performed By: #### L 100.0100, L500.2500 ####[facility] [address] [place], [address] Orthopedic Visit Reporton Orthopedic Visit Report Normal [facility] Shoulder min 2 Viewson 03-25 Shoulder min 2 Views Normal [facility] Basic Metabolic Profile (BMP )on 03-20-2024 BUN Normal 7-18 [facility] Comment on above: Result Comment: Canc elled via OM: Order cancelled - Patient discharged Performed By: #### L 100.0100, L500.2500 ####[facility] [address] [facility] [address] BUN/CRE Normal 10-20 [facility] Comment on above: Result Comment: Canc elled via OM: Order cancelled - Patient discharged Performed By: #### L 100.0100, L500.2500 ####[facility] [address] [place], [address] CA,Total Normal 8.5-10.1 [facility] Comment on above: Result Comment: Canc elled via OM: Order cancelled - Patient discharged Performed By: #### L 100.0100, L500.2500 ####[facility] [address] [place], [address] CL Normal 98-107 [facility] Comment on above: Result Comment: Canc elled via OM: Order cancelled - Patient discharged Performed By: #### L 100.0100, L500.2500 ####[facility] [address] [place], [address] CO2 Normal 21.0-32.0 [facility] Comment on above: Result Comment: Canc elled via OM: Order cancelled - Patient discharged Performed By: #### L 100.0100, L500.2500 ####[facility] [address] [place], [address] CREAT,SERUM Normal 0.55-1.02 [facility] Comment on above: Result Comment: Canc elled via OM: Order cancelled - Patient discharged Performed By: #### L 100.0100, L500.2500 ####[facility] [address] [place], [address] EST GFR Normal >60 [facility] Comment on above: Result Comment: Canc elled via OM: Order cancelled - Patient discharged Performed By: #### L 100.0100, L500.2500 ####[facility] [address] [place], [address] EST GFR - AA Normal >60 [facility] Comment on above: Result Comment: Canc elled via OM: Order cancelled - Patient discharged Performed By: #### L 100.0100, L500.2500 ####[facility] [address] [place], [address] GAP Normal 5-15 [facility] Comment on above: Result Comment: Canc elled via OM: Order cancelled - Patient discharged Performed By: #### L 100.0100, L500.2500 ####[facility] [address] [place], [address] GLU Normal 74-106 [facility] Comment on above: Result Comment: Canc elled via OM: Order cancelled - Patient discharged Performed By: #### L 100.0100, L500.2500 ####[facility] [address] [place], [address] Potassium Normal 3.5-5.1 [facility] Comment on above: Result Comment: Canc elled via OM: Order cancelled - Patient discharged Performed By: #### L 100.0100, L500.2500 ####[facility] [address] [place], [address] Basic Metabolic Profile (BMP) Normal 136-145 [facility] Comment on above: Result Comment: Canc elled via OM: Order cancelled - Patient discharged Performed By: #### L 100.0100, L500.2500 ####[facility] [address] [place], [address] CBC W/Diff, Automatedon 07-1 0-2023 Absolute Neut Normal 2.0-7.7 [facility] Comment on above: Result Comment: Canc elled via OM: Order cancelled - Patient discharged Performed By: #### L 100.0100, L500.2500 ####[facility] [address] [place], [address] HCT Normal 37-47 [facility] Comment on above: Result Comment: Canc elled via OM: Order cancelled - Patient discharged Performed By: #### L 100.0100, L500.2500 ####[facility] [address] [place], [address] HGB Normal 12.0-15.0 [facility] Comment on above: Result Comment: Canc elled via OM: Order cancelled - Patient discharged Performed By: #### L 100.0100, L500.2500 ####[facility] [address] [place], [address] MCH Normal 27.0-32.0 [facility] Comment on above: Result Comment: Canc elled via OM: Order cancelled - Patient discharged Performed By: #### L 100.0100, L500.2500 ####[facility] [address] [place], [address] MCHC Normal 32-36 [facility] Comment on above: Result Comment: Canc elled via OM: Order cancelled - Patient discharged Performed By: #### L 100.0100, L500.2500 ####[facility] [address] [place], [address] MCV Normal 81-99 [facility] Comment on above: Result Comment: Canc elled via OM: Order cancelled - Patient discharged Performed By: #### L 100.0100, L500.2500 ####[facility] [address] [place], [address] NEUT% Normal 47-70 [facility] Comment on above: Result Comment: Canc elled via OM: Order cancelled - Patient discharged Performed By: #### L 100.0100, L500.2500 ####[facility] [address] [place], [address] PLT Normal 150-450 [facility] Comment on above: Result Comment: Canc elled via OM: Order cancelled - Patient discharged Performed By: #### L 100.0100, L500.2500 ####[facility] [address] [place], [address] RBC Normal 4.2-5.4 [facility] Comment on above: Result Comment: Canc elled via OM: Order cancelled - Patient discharged Performed By: #### L 100.0100, L500.2500 ####[facility] [address] [place], [address] RDW CV Normal 11.6-14.6 [facility] Comment on above: Result Comment: Canc elled via OM: Order cancelled - Patient discharged Performed By: #### L 100.0100, L500.2500 ####[facility] [address], [address] RDW SD Normal 35.1-43.9 [facility] Comment on above: Result Comment: Canc elled via OM: Order cancelled - Patient discharged Performed By: #### L 100.0100, L500.2500 ####[facility] [address], [address] WBC Normal 4.4-11.0 [facility] Comment on above: Result Comment: Canc elled via OM: Order cancelled - Patient discharged Performed By: #### L 100.0100, L500.2500 ####[facility] [address] [place], [address] Bedside Glucoseon 03-15-2024 FINGERSTICK GLU 86 mg/dL Normal 74-106 [facility] Comment on above: Result Comment: TIGIST GEMENT OF PATIENT CARE PER NURSING PROTOCOL Performed By: #### L 501.080 ####[facility] [address] [place], [address] Bedside Glucoseon 03-14-2024 FINGERSTICK GLU 149 mg/dL High 74-106 [facility] Comment on above: Result Comment: TIGIST GEMENT OF PATIENT CARE PER NURSING PROTOCOL Performed By: #### L 501.080 ####[facility] [address] [place], [address] FINGERSTICK GLU 76 mg/dL Normal 74-106 [facility] Comment on above: Result Comment: TIGIST GEMENT OF PATIENT CARE PER NURSING PROTOCOL Performed By: #### L 501.080 ####[facility] [address] [place], [address] Basic Metabolic Profile (BMP )on 03-13-2024 BUN/CRE 34.9 RATIO High 10-20 [facility] Comment on above: Performed By: #### L 500.2500, L100.0100 ####[facility] [address] [place], [address] CA,Total 10.0 mg/dL Normal 8.5-10.1 [facility] Comment on above: Performed By: #### L 500.2500, L100.0100 ####[facility] [address] [place], [address] Chloride [Moles/Vol] 108 mmol/L High 98-107 [facility] Comment on above: Performed By: #### L 500.2500, L100.0100 ####[facility] [address] [place], [address] CO2 [Moles/Vol] 24.0 mmol/L Normal 21.0-32.0 [facility] Comment on above: Performed By: #### L 500.2500, L100.0100 ####[facility] [address] [place], [address] Creatinine [Mass/Vol] 0.89 mg/dL Normal 0.55-1.02 [facility] Comment on above: Result Comment: The validity of the calculated GFR GFRAA in patients over70 years has not been determined. Clinical correlation isessential. Performed By: #### L 500.2500, L100.0100 ####[facility] [address] [place], [address] ECRCL 35.25 ml/min Normal [facility] Comment on above: Performed By: #### L 500.2500, L100.0100 ####[facility] [address] [place], [address] EST GFR - AA 77 mL/min Normal >60 [facility] Comment on above: Result Comment: Afri can Liberian GFR Calc Performed By: #### L 500.2500, L100.0100 ####[facility] [address] [place], [address] GAP 4 Low 5-15 [facility] Comment on above: Performed By: #### L 500.2500, L100.0100 ####[facility] [address] [place], [address] GFR/1.73 sq M.predicted among non-blacks MDRD (S/P/Bld) [Vol rate/Area] 64 mL/min/{1.73_m2} Normal >60 [facility] Comment on above: Result Comment: Non- GFR Calc Performed By: #### L 500.2500, L100.0100 ####[facility] [address] [place], [address] Glucose [Mass/Vol] 94 mg/dL Normal 74-106 [facility] Comment on above: Performed By: #### L 500.2500, L100.0100 ####[facility] [address] [place], [address] Potassium [Moles/Vol] 4.7 mmol/L Normal 3.5-5.1 [facility] Comment on above: Performed By: #### L 500.2500, L100.0100 ####[facility] [address] [place], [address] Sodium [Moles/Vol] 136 mmol/L Normal 136-145 [facility] Comment on above: Performed By: #### L 500.2500, L100.0100 ####[facility] [address] [place], [address] Urea nitrogen [Mass/Vol] 31 mg/dL High 7-18 [facility] Comment on above: Performed By: #### L 500.2500, L100.0100 ####[facility] [address] [place], [address] Bedside Glucoseon --2023 FINGERSTICK GLU 98 mg/dL Normal 74-106 [facility] Comment on above: Result Comment: TIGIST RODRIGEZ OF PATIENT CARE PER NURSING PROTOCOL Performed By: #### L 501.080 ####[facility] [address] [place], [address] CBC W/Diff, Automatedon 07-0 Absolute Lymph 2.42 X10 3/uL Normal 0.83-4.51 [facility] Comment on above: Performed By: #### L 500.2500, L100.0100 ####[facility] [address] [place], [address] Absolute Neut 2.4 X10 3/uL Normal 2.0-7.7 [facility] Comment on above: Performed By: #### L 500.2500, L100.0100 ####[facility] [address] [place], [address] Basophils/100 WBC (Bld) 0.4 % Normal 0-1 [facility] Comment on above: Performed By: #### L 500.2500, L100.0100 ####[facility] [address] [place], [address] Eosinophils/100 WBC (Bld) 3.8 % Normal 0-5 [facility] Comment on above: Performed By: #### L 500.2500, L100.0100 ####[facility] [address] [place], [address] Erythrocyte distribution width (RBC) [Ratio] 13.4 % Normal 11.6-14.6 [facility] Comment on above: Performed By: #### L 500.2500, L100.0100 ####[facility] [address] [place], [address] Hematocrit (Bld) [Volume fraction] 31.6 % Low 37-47 [facility] Comment on above: Performed By: #### L 500.2500, L100.0100 ####[facility] [address] [place], [address] Hemoglobin (Bld) [Mass/Vol] 10.2 g/dL Low 12.0-15.0 [facility] Comment on above: Performed By: #### L 500.2500, L100.0100 ####[facility] [address] [place], [address] IG% 0.400 Normal 0.0-0.9 [facility] Comment on above: Result Comment: IG% - Immature Granulocytes (promyelocytes, myelocytes andmetamyelocytes) > 1% indicates that a LEFT SHIFT is Present. Performed By: #### L 500.2500, L100.0100 ####[facility] [address], [address] Lymphocytes/100 WBC (Bld) 45.8 % High 19-41 [facility] Comment on above: Performed By: #### L 500.2500, L100.0100 ####[facility] [address] [place], [address] MCH (RBC) [Entitic mass] 29.5 pg Normal 27.0-32.0 [facility] Comment on above: Performed By: #### L 500.2500, L100.0100 ####[facility] [address] [place], [address] MCHC (RBC) [Mass/Vol] 32.3 g/dL Normal 32-36 [facility] Comment on above: Performed By: #### L 500.2500, L100.0100 ####[facility] [address] [place], [address] MCV (RBC) [Entitic vol] 91.3 fL Normal 81-99 [facility] Comment on above: Performed By: #### L 500.2500, L100.0100 ####[facility] [address] [place], [address] Monocytes/100 WBC (Bld) 4.9 % Normal 0-10 [facility] Comment on above: Performed By: #### L 500.2500, L100.0100 ####[facility] [address] [place], [address] Neutrophils/100 WBC (Bld) 44.7 % Low 47-70 [facility] Comment on above: Performed By: #### L 500.2500, L100.0100 ####[facility] [address] [place], [address] Nucleated RBC (Bld) [#/Vol] 0 10*3/uL Normal 0-5 [facility] Comment on above: Performed By: #### L 500.2500, L100.0100 ####[facility] [address] [place], [address] Platelet mean volume (Bld) [Entitic vol] 9.4 fL Normal 6.2-12.0 [facility] Comment on above: Performed By: #### L 500.2500, L100.0100 ####[facility] [address] [place], [address] Platelets (Bld) [#/Vol] 244 10*3/uL Normal 150-450 [facility] Comment on above: Performed By: #### L 500.2500, L100.0100 ####[facility] [address] [place], [address] RBC (Bld) [#/Vol] 3.46 10*6/uL Low 4.2-5.4 [facility] Comment on above: Performed By: #### L 500.2500, L100.0100 ####[facility] [address] [place], [address] RDW SD 44.6 fl High 35.1-43.9 [facility] Comment on above: Performed By: #### L 500.2500, L100.0100 ####[facility] [address] [place], [address] WBC (Bld) [#/Vol] 5.3 10*3/uL Normal 4.4-11.0 [facility] Comment on above: Performed By: #### L 500.2500, L100.0100 ####[facility] [address] [place], [address] Bedside Glucoseon 03-12-2024 FINGERSTICK GLU 83 mg/dL Normal 74-106 [facility] Comment on above: Result Comment: TIGIST RODRIGEZ OF PATIENT CARE PER NURSING PROTOCOL Performed By: #### L 501.080 ####[facility] [address] [place], [address] Bedside Glucoseon 03-11-2024 FINGERSTICK GLU 90 mg/dL Normal 74-106 [facility] Comment on above: Result Comment: TIGIST GEMENT OF PATIENT CARE PER NURSING PROTOCOL Performed By: #### L 501.080 ####[facility] [address] [place], [address] Bedside Glucoseon 03-10-2024 FINGERSTICK GLU 104 mg/dL Normal 74-106 [facility] Comment on above: Result Comment: TIGIST GEMENT OF PATIENT CARE PER NURSING PROTOCOL Performed By: #### L 501.080 ####[facility] [address] [place], [address] Bedside Glucoseon 03-09-2024 FINGERSTICK GLU 110 mg/dL High 74-106 [facility] Comment on above: Result Comment: TIGIST GEMENT OF PATIENT CARE PER NURSING PROTOCOL Performed By: #### L 501.080 ####[facility] [address] [place], [address] Bedside Glucoseon 03-08-2024 FINGERSTICK GLU 96 mg/dL Normal 74-106 [facility] Comment on above: Result Comment: TIGIST GEMENT OF PATIENT CARE PER NURSING PROTOCOL Performed By: #### L 501.080 ####[facility] [address] [place], [address] COVID 19 AG RAPID (RN SWETHA Barrios)on 03-08-2024 SARS-CoV-2 (COVID-19) RNA ROHAN+probe Ql (Unsp spec) Normal [facility] Comment on above: Performed By: #### M 100.505 ####[facility] [address] [place], [place], [address] Bedside Glucoseon 03-07-2024 FINGERSTICK GLU 107 mg/dL High 74-106 [facility] Comment on above: Result Comment: TIGIST GEMENT OF PATIENT CARE PER NURSING PROTOCOL Performed By: #### L 501.080 ####[facility] [address] [place], [address] Extremity Lower without Cont raon 03-07-2024 Extremity Lower without Contra Normal [facility] Basic Metabolic Profile (BMP )on 03-06-2024 BUN/CRE 29.1 RATIO High 10-20 [facility] Comment on above: Performed By: #### L 500.2500, L100.0100 ####[facility] [address] [place], [address] CA,Total 10.0 mg/dL Normal 8.5-10.1 [facility] Comment on above: Performed By: #### L 500.2500, L100.0100 ####[facility] [address] [place], [address] Chloride [Moles/Vol] 107 mmol/L Normal 98-107 [facility] Comment on above: Performed By: #### L 500.2500, L100.0100 ####[facility] [address] [place], [address] CO2 [Moles/Vol] 26.0 mmol/L Normal 21.0-32.0 [facility] Comment on above: Performed By: #### L 500.2500, L100.0100 ####[facility] [address] [place], [address] Creatinine [Mass/Vol] 0.82 mg/dL Normal 0.55-1.02 [facility] Comment on above: Result Comment: The validity of the calculated GFR GFRAA in patients over70 years has not been determined. Clinical correlation isessential. Performed By: #### L 500.2500, L100.0100 ####[facility] [address] [place], [address] ECRCL 38.53 ml/min Normal [facility] Comment on above: Performed By: #### L 500.2500, L100.0100 ####[facility] [address] [place], [address] EST GFR - AA 84 mL/min Normal >60 [facility] Comment on above: Result Comment: Afri can Liberian GFR Calc Performed By: #### L 500.2500, L100.0100 ####[facility] [address] [place], [address] GAP 4 Low 5-15 [facility] Comment on above: Performed By: #### L 500.2500, L100.0100 ####[facility] [address] [place], [address] GFR/1.73 sq M.predicted among non-blacks MDRD (S/P/Bld) [Vol rate/Area] 69 mL/min/{1.73_m2} Normal >60 [facility] Comment on above: Result Comment: Non- GFR Calc Performed By: #### L 500.2500, L100.0100 ####[facility] [address] [place], [address] Glucose [Mass/Vol] 106 mg/dL Normal 74-106 [facility] Comment on above: Result Comment: Fast ing Glucose result from 100 to 125 mg/dLsuggests IMPAIRED HOMEOSTASIS per A.D.A. criteria. Performed By: #### L 500.2500, L100.0100 ####[facility] [address] [place], [address] Potassium [Moles/Vol] 4.7 mmol/L Normal 3.5-5.1 [facility] Comment on above: Performed By: #### L 500.2500, L100.0100 ####[facility] [address] [place], [address] Sodium [Moles/Vol] 137 mmol/L Normal 136-145 [facility] Comment on above: Performed By: #### L 500.2500, L100.0100 ####[facility] [address] [place], [address] Urea nitrogen [Mass/Vol] 24 mg/dL High 7-18 [facility] Comment on above: Performed By: #### L 500.2500, L100.0100 ####[facility] [address] [place], [address] Bedside Glucoseon 03-06-2024 FINGERSTICK GLU 110 mg/dL High 74-106 [facility] Comment on above: Result Comment: TIGIST RODRIGEZ OF PATIENT CARE PER NURSING PROTOCOL Performed By: #### L 501.080 ####[facility] [address] [place], [address] CBC W/Diff, Automatedon 02-10 Absolute Lymph 2.35 X10 3/uL Normal 0.83-4.51 [facility] Comment on above: Performed By: #### L 500.2500, L100.0100 ####[facility] [address] [place], [address] Absolute Neut 3.1 X10 3/uL Normal 2.0-7.7 [facility] Comment on above: Performed By: #### L 500.2500, L100.0100 ####[facility] [address] [place], [address] Basophils/100 WBC (Bld) 0.5 % Normal 0-1 [facility] Comment on above: Performed By: #### L 500.2500, L100.0100 ####[facility] [address] [place], [address] Eosinophils/100 WBC (Bld) 4.2 % Normal 0-5 [facility] Comment on above: Performed By: #### L 500.2500, L100.0100 ####[facility] [address] [place], [address] Erythrocyte distribution width (RBC) [Ratio] 13.3 % Normal 11.6-14.6 [facility] Comment on above: Performed By: #### L 500.2500, L100.0100 ####[facility] [address] [place], [address] Hematocrit (Bld) [Volume fraction] 30.9 % Low 37-47 [facility] Comment on above: Performed By: #### L 500.2500, L100.0100 ####[facility] [address] [place], [address] Hemoglobin (Bld) [Mass/Vol] 10.1 g/dL Low 12.0-15.0 [facility] Comment on above: Performed By: #### L 500.2500, L100.0100 ####[facility] [address] [place], [address] IG% 0.200 Normal 0.0-0.9 [facility] Comment on above: Result Comment: IG% - Immature Granulocytes (promyelocytes, myelocytes andmetamyelocytes) > 1% indicates that a LEFT SHIFT is Present. Performed By: #### L 500.2500, L100.0100 ####[facility] [address] [place], [address] Lymphocytes/100 WBC (Bld) 38.1 % Normal 19-41 [facility] Comment on above: Performed By: #### L 500.2500, L100.0100 ####[facility] [address] [place], [address] MCH (RBC) [Entitic mass] 30.3 pg Normal 27.0-32.0 [facility] Comment on above: Performed By: #### L 500.2500, L100.0100 ####[facility] [address] [place], [address] MCHC (RBC) [Mass/Vol] 32.7 g/dL Normal 32-36 [facility] Comment on above: Performed By: #### L 500.2500, L100.0100 ####[facility] [address] [place], [address] MCV (RBC) [Entitic vol] 92.8 fL Normal 81-99 [facility] Comment on above: Performed By: #### L 500.2500, L100.0100 ####[facility] [address] [place], [address] Monocytes/100 WBC (Bld) 6.8 % Normal 0-10 [facility] Comment on above: Performed By: #### L 500.2500, L100.0100 ####[facility] [address] [place], [address] Neutrophils/100 WBC (Bld) 50.2 % Normal 47-70 [facility] Comment on above: Performed By: #### L 500.2500, L100.0100 ####[facility] [address] [place], [address] Nucleated RBC (Bld) [#/Vol] 0 10*3/uL Normal 0-5 [facility] Comment on above: Performed By: #### L 500.2500, L100.0100 ####[facility] [address] [place], [address] Platelet mean volume (Bld) [Entitic vol] 9.3 fL Normal 6.2-12.0 [facility] Comment on above: Performed By: #### L 500.2500, L100.0100 ####[facility] [address] [place], [address] Platelets (Bld) [#/Vol] 273 10*3/uL Normal 150-450 [facility] Comment on above: Performed By: #### L 500.2500, L100.0100 ####[facility] [address] [place], [address] RBC (Bld) [#/Vol] 3.33 10*6/uL Low 4.2-5.4 [facility] Comment on above: Performed By: #### L 500.2500, L100.0100 ####[facility] [address] [place], [address] RDW SD 45.1 fl High 35.1-43.9 [facility] Comment on above: Performed By: #### L 500.2500, L100.0100 ####[facility] [address] [place], [address] WBC (Bld) [#/Vol] 6.2 10*3/uL Normal 4.4-11.0 [facility] Comment on above: Performed By: #### L 500.2500, L100.0100 ####[facility] [address] [place], [address] HIP, UNI W/ Pelvis 2-3 Views on 03-06-2024 HIP, UNI W/ Pelvis 2-3 Views Normal [facility] Knee 3 Viewson 03-06-2024 Knee 3 Views Normal [facility] Tibia Fibula 2 Viewson 03-06 Tibia Fibula 2 Views Normal [facility] Bedside Glucoseon 03-05-2024 FINGERSTICK GLU 101 mg/dL Normal 74-106 [facility] Comment on above: Result Comment: TIGIST GEMENT OF PATIENT CARE PER NURSING PROTOCOL Performed By: #### L 501.080 ####[facility] [address] [place], [address] Bedside Glucoseon 03-04-2024 FINGERSTICK GLU 87 mg/dL Normal 74-106 [facility] Comment on above: Result Comment: TIGIST GEMENT OF PATIENT CARE PER NURSING PROTOCOL Performed By: #### L 501.080 ####[facility] [address] [place], [address] Bedside Glucoseon 03-03-2024 FINGERSTICK GLU 95 mg/dL Normal 74-106 [facility] Comment on above: Result Comment: TIGIST GEMENT OF PATIENT CARE PER NURSING PROTOCOL Performed By: #### L 501.080 ####[facility] [address] [place], [address] Bedside Glucoseon 03-02-2024 FINGERSTICK GLU 103 mg/dL Normal 74-106 [facility] Comment on above: Result Comment: TIGIST GEMENT OF PATIENT CARE PER NURSING PROTOCOL Performed By: #### L 501.080 ####[facility] [address] [place], [address] Bedside Glucoseon 03-01-2024 FINGERSTICK GLU 113 mg/dL High 74-106 [facility] Comment on above: Result Comment: TIGIST GEMENT OF PATIENT CARE PER NURSING PROTOCOL Performed By: #### L 501.080 ####[facility] [address] [place], [address] COVID 19 AG RAPID (RN SWETHA Barrios)on 03-01-2024 SARS-CoV-2 (COVID-19) RNA ROHAN+probe Ql (Unsp spec) Normal [facility] Comment on above: Performed By: #### M 100.505 ####[facility] [address] [place], [address] Bedside Glucoseon 02-29-2024 FINGERSTICK GLU 161 mg/dL High 74-106 [facility] Comment on above: Result Comment: TIGIST GEMENT OF PATIENT CARE PER NURSING PROTOCOL Performed By: #### L 501.080 ####[facility] [address] [place], [address] Basic Metabolic Profile (BMP )on 02-28-2024 BUN/CRE 20.2 RATIO High 10-20 [facility] Comment on above: Performed By: #### L 100.0100, L500.2500 ####[facility] [address] [place], [address] CA,Total 9.9 mg/dL Normal 8.5-10.1 [facility] Comment on above: Performed By: #### L 100.0100, L500.2500 ####[facility] [address] [place], [address] Chloride [Moles/Vol] 106 mmol/L Normal 98-107 [facility] Comment on above: Performed By: #### L 100.0100, L500.2500 ####[facility] [address] [place], [address] CO2 [Moles/Vol] 27.0 mmol/L Normal 21.0-32.0 [facility] Comment on above: Performed By: #### L 100.0100, L500.2500 ####[facility] [address] [place], [address] Creatinine [Mass/Vol] 0.79 mg/dL Normal 0.55-1.02 [facility] Comment on above: Result Comment: The validity of the calculated GFR GFRAA in patients over70 years has not been determined. Clinical correlation isessential. Performed By: #### L 100.0100, L500.2500 ####[facility] [address] [place], [address] ECRCL 40.09 ml/min Normal [facility] Comment on above: Performed By: #### L 100.0100, L500.2500 ####[facility] [address] [place], [address] EST GFR - AA 88 mL/min Normal >60 [facility] Comment on above: Result Comment: Afri can Liberian GFR Calc Performed By: #### L 100.0100, L500.2500 ####[facility] [address] [place], [address] GAP 6 Normal 5-15 [facility] Comment on above: Performed By: #### L 100.0100, L500.2500 ####[facility] [address] [place], [address] GFR/1.73 sq M.predicted among non-blacks MDRD (S/P/Bld) [Vol rate/Area] 73 mL/min/{1.73_m2} Normal >60 [facility] Comment on above: Result Comment: Non- GFR Calc Performed By: #### L 100.0100, L500.2500 ####[facility] [address] [place], [address] Glucose [Mass/Vol] 221 mg/dL High 74-106 [facility] Comment on above: Result Comment: Gluc ose result greater than or equal to 200 mg/dLsuggests DIABETES MELLITUS per A.D.A. criteria. Performed By: #### L 100.0100, L500.2500 ####[facility] [address] [place], [address] Potassium [Moles/Vol] 3.6 mmol/L Normal 3.5-5.1 [facility] Comment on above: Performed By: #### L 100.0100, L500.2500 ####[facility] [address] [place], [address] Sodium [Moles/Vol] 139 mmol/L Normal 136-145 [facility] Comment on above: Performed By: #### L 100.0100, L500.2500 ####[facility] [address] [place], [address] Urea nitrogen [Mass/Vol] 16 mg/dL Normal 7-18 [facility] Comment on above: Performed By: #### L 100.0100, L500.2500 ####[facility] [address] [place], [address] BUN Normal 7-18 [facility] Comment on above: Result Comment: Canc elled via OM: Order cancelled - Patient discharged Performed By: #### L 500.2500, L100.0100 ####[facility] [address] [place], [address] BUN/CRE Normal 10-20 [facility] Comment on above: Result Comment: Canc elled via OM: Order cancelled - Patient discharged Performed By: #### L 500.2500, L100.0100 ####[facility] [address] [place], [address] CA,Total Normal 8.5-10.1 [facility] Comment on above: Result Comment: Canc elled via OM: Order cancelled - Patient discharged Performed By: #### L 500.2500, L100.0100 ####[facility] [address] [place], [address] CL Normal 98-107 [facility] Comment on above: Result Comment: Canc elled via OM: Order cancelled - Patient discharged Performed By: #### L 500.2500, L100.0100 ####[facility] [address] [place], [address] CO2 Normal 21.0-32.0 [facility] Comment on above: Result Comment: Canc elled via OM: Order cancelled - Patient discharged Performed By: #### L 500.2500, L100.0100 ####[facility] [address] [place], [address] CREAT,SERUM Normal 0.55-1.02 [facility] Comment on above: Result Comment: Canc elled via OM: Order cancelled - Patient discharged Performed By: #### L 500.2500, L100.0100 ####[facility] [address] [place], [address] EST GFR Normal >60 [facility] Comment on above: Result Comment: Canc elled via OM: Order cancelled - Patient discharged Performed By: #### L 500.2500, L100.0100 ####[facility] [address] [place], [address] EST GFR - AA Normal >60 [facility] Comment on above: Result Comment: Canc elled via OM: Order cancelled - Patient discharged Performed By: #### L 500.2500, L100.0100 ####[facility] [address] [place], [address] GAP Normal 5-15 [facility] Comment on above: Result Comment: Canc elled via OM: Order cancelled - Patient discharged Performed By: #### L 500.2500, L100.0100 ####[facility] [address] [place], [address] GLU Normal 74-106 [facility] Comment on above: Result Comment: Canc elled via OM: Order cancelled - Patient discharged Performed By: #### L 500.2500, L100.0100 ####[facility] [address] [place], [address] Potassium Normal 3.5-5.1 [facility] Comment on above: Result Comment: Canc elled via OM: Order cancelled - Patient discharged Performed By: #### L 500.2500, L100.0100 ####[facility] [address] [place], [address] Basic Metabolic Profile (BMP) Normal 136-145 [facility] Comment on above: Result Comment: Canc elled via OM: Order cancelled - Patient discharged Performed By: #### L 500.2500, L100.0100 ####[facility] [address] [place], [address] Bedside Glucoseon 02-28-2024 FINGERSTICK GLU 195 mg/dL High 74-106 [facility] Comment on above: Result Comment: TIGIST RODRIGEZ OF PATIENT CARE PER NURSING PROTOCOL Performed By: #### L 501.080 ####[facility] [address] [place], [address] CBC W/Diff, Automatedon 06- Absolute Lymph 1.94 X10 3/uL Normal 0.83-4.51 [facility] Comment on above: Performed By: #### L 100.0100, L500.2500 ####[facility] [address] [place], [address] Absolute Neut 3.5 X10 3/uL Normal 2.0-7.7 [facility] Comment on above: Performed By: #### L 100.0100, L500.2500 ####[facility] [address] [place], [address] Basophils/100 WBC (Bld) 0.3 % Normal 0-1 [facility] Comment on above: Performed By: #### L 100.0100, L500.2500 ####[facility] [address] [place], [address] Eosinophils/100 WBC (Bld) 1.2 % Normal 0-5 [facility] Comment on above: Performed By: #### L 100.0100, L500.2500 ####[facility] [address] [place], [address] Erythrocyte distribution width (RBC) [Ratio] 12.9 % Normal 11.6-14.6 [facility] Comment on above: Performed By: #### L 100.0100, L500.2500 ####[facility] [address] [place], [address] Hematocrit (Bld) [Volume fraction] 30.2 % Low 37-47 [facility] Comment on above: Performed By: #### L 100.0100, L500.2500 ####[facility] [address] [place], [address] Hemoglobin (Bld) [Mass/Vol] 10.1 g/dL Low 12.0-15.0 [facility] Comment on above: Performed By: #### L 100.0100, L500.2500 ####[facility] [address] [place], [address] IG% 0.000 Normal 0.0-0.9 [facility] Comment on above: Result Comment: IG% - Immature Granulocytes (promyelocytes, myelocytes andmetamyelocytes) > 1% indicates that a LEFT SHIFT is Present. Performed By: #### L 100.0100, L500.2500 ####[facility] [address] [place], [address] Lymphocytes/100 WBC (Bld) 32.6 % Normal 19-41 [facility] Comment on above: Performed By: #### L 100.0100, L500.2500 ####[facility] [address] [place], [address] MCH (RBC) [Entitic mass] 30.1 pg Normal 27.0-32.0 [facility] Comment on above: Performed By: #### L 100.0100, L500.2500 ####[facility] [address] [place], [address] MCHC (RBC) [Mass/Vol] 33.4 g/dL Normal 32-36 [facility] Comment on above: Performed By: #### L 100.0100, L500.2500 ####[facility] [address] [place], [address] MCV (RBC) [Entitic vol] 89.9 fL Normal 81-99 [facility] Comment on above: Performed By: #### L 100.0100, L500.2500 ####[facility] [address] [place], [address] Monocytes/100 WBC (Bld) 6.9 % Normal 0-10 [facility] Comment on above: Performed By: #### L 100.0100, L500.2500 ####[facility] [address] [place], [address] Neutrophils/100 WBC (Bld) 59.0 % Normal 47-70 [facility] Comment on above: Performed By: #### L 100.0100, L500.2500 ####[facility] [address] [place], [address] Nucleated RBC (Bld) [#/Vol] 0 10*3/uL Normal 0-5 [facility] Comment on above: Performed By: #### L 100.0100, L500.2500 ####[facility] [address] [place], [address] Platelet mean volume (Bld) [Entitic vol] 11.2 fL Normal 6.2-12.0 [facility] Comment on above: Performed By: #### L 100.0100, L500.2500 ####[facility] [address] [place], [address] Platelets (Bld) [#/Vol] 165 10*3/uL Normal 150-450 [facility] Comment on above: Performed By: #### L 100.0100, L500.2500 ####[facility] [address] [place], [address] RBC (Bld) [#/Vol] 3.36 10*6/uL Low 4.2-5.4 [facility] Comment on above: Performed By: #### L 100.0100, L500.2500 ####[facility] [address] [place], [address] RDW SD 41.6 fl Normal 35.1-43.9 [facility] Comment on above: Performed By: #### L 100.0100, L500.2500 ####[facility] [address] [place], [address] WBC (Bld) [#/Vol] 6.0 10*3/uL Normal 4.4-11.0 [facility] Comment on above: Performed By: #### L 100.0100, L500.2500 ####[facility] [address] [place], [address] Absolute Neut Normal 2.0-7.7 [facility] Comment on above: Result Comment: Canc elled via OM: Order cancelled - Patient discharged Performed By: #### L 500.2500, L100.0100 ####[facility] [address] [place], [address] HCT Normal 37-47 [facility] Comment on above: Result Comment: Canc elled via OM: Order cancelled - Patient discharged Performed By: #### L 500.2500, L100.0100 ####[facility] [address] [place], [address] HGB Normal 12.0-15.0 [facility] Comment on above: Result Comment: Canc elled via OM: Order cancelled - Patient discharged Performed By: #### L 500.2500, L100.0100 ####[facility] [address] [place], [address] MCH Normal 27.0-32.0 [facility] Comment on above: Result Comment: Canc elled via OM: Order cancelled - Patient discharged Performed By: #### L 500.2500, L100.0100 ####[facility] [address] [place], [address] MCHC Normal 32-36 [facility] Comment on above: Result Comment: Canc elled via OM: Order cancelled - Patient discharged Performed By: #### L 500.2500, L100.0100 ####[facility] [address] [place], [address] MCV Normal 81-99 [facility] Comment on above: Result Comment: Canc elled via OM: Order cancelled - Patient discharged Performed By: #### L 500.2500, L100.0100 ####[facility] [address] [place], [address] NEUT% Normal 47-70 [facility] Comment on above: Result Comment: Canc elled via OM: Order cancelled - Patient discharged Performed By: #### L 500.2500, L100.0100 ####[facility] [address] [place], [address] PLT Normal 150-450 [facility] Comment on above: Result Comment: Canc elled via OM: Order cancelled - Patient discharged Performed By: #### L 500.2500, L100.0100 ####[facility] [address] [place], [address] RBC Normal 4.2-5.4 [facility] Comment on above: Result Comment: Canc elled via OM: Order cancelled - Patient discharged Performed By: #### L 500.2500, L100.0100 ####[facility] [address] [place], [address] RDW CV Normal 11.6-14.6 [facility] Comment on above: Result Comment: Canc elled via OM: Order cancelled - Patient discharged Performed By: #### L 500.2500, L100.0100 ####[facility] [address] [place], [address] RDW SD Normal 35.1-43.9 [facility] Comment on above: Result Comment: Canc elled via OM: Order cancelled - Patient discharged Performed By: #### L 500.2500, L100.0100 ####[facility] [address] [place], [address] WBC Normal 4.4-11.0 [facility] Comment on above: Result Comment: Canc elled via OM: Order cancelled - Patient discharged Performed By: #### L 500.2500, L100.0100 ####[facility] [address] [place], [address] Bedside Glucoseon 02-27-2024 FINGERSTICK GLU 222 mg/dL High 74-106 [facility] Comment on above: Result Comment: TIGIST GEMENT OF PATIENT CARE PER NURSING PROTOCOL Performed By: #### L 501.080 ####[facility] [address] [place], [address] FINGERSTICK GLU 170 mg/dL High 74-106 [facility] Comment on above: Result Comment: TIGIST GEMENT OF PATIENT CARE PER NURSING PROTOCOL Performed By: #### L 501.080 ####[facility] [address] [place], [address] FINGERSTICK GLU 181 mg/dL High -106 [facility] Comment on above: Result Comment: TIGIST GEMENT OF PATIENT CARE PER NURSING PROTOCOL Performed By: #### L 501.080 ####[facility] [address] [place], [address] FINGERSTICK GLU 143 mg/dL High 74-106 [facility] Comment on above: Result Comment: TIGIST GEMENT OF PATIENT CARE PER NURSING PROTOCOL Performed By: #### L 501.080 ####[facility] [address], [address] Basic Metabolic Profile (BMP )on 02-26-2024 BUN/CRE 26.4 RATIO High 10-20 [facility] Comment on above: Performed By: #### L 100.0100, L500.2500 ####[facility] [address] [place], [address] CA,Total 9.5 mg/dL Normal 8.5-10.1 [facility] Comment on above: Performed By: #### L 100.0100, L500.2500 ####[facility] [address] [place], [address] Chloride [Moles/Vol] 104 mmol/L Normal 98-107 [facility] Comment on above: Performed By: #### L 100.0100, L500.2500 ####[facility] [address] [place], [address] CO2 [Moles/Vol] 26.0 mmol/L Normal 21.0-32.0 [facility] Comment on above: Performed By: #### L 100.0100, L500.2500 ####[facility] [address] [place], [address] Creatinine [Mass/Vol] 0.91 mg/dL Normal 0.55-1.02 [facility] Comment on above: Result Comment: The validity of the calculated GFR GFRAA in patients over70 years has not been determined. Clinical correlation isessential. Performed By: #### L 100.0100, L500.2500 ####[facility] [address] [place], [address] ECRCL 34.94 ml/min Normal [facility] Comment on above: Performed By: #### L 100.0100, L500.2500 ####[facility] [address] [place], [address] EST GFR - AA 75 mL/min Normal >60 [facility] Comment on above: Result Comment: Afri can Liberian GFR Calc Performed By: #### L 100.0100, L500.2500 ####[facility] [address] [place], [address] GAP 6 Normal 5-15 [facility] Comment on above: Performed By: #### L 100.0100, L500.2500 ####[facility] [address] [place], [address] GFR/1.73 sq M.predicted among non-blacks MDRD (S/P/Bld) [Vol rate/Area] 62 mL/min/{1.73_m2} Normal >60 [facility] Comment on above: Result Comment: Non- GFR Calc Performed By: #### L 100.0100, L500.2500 ####[facility] [address] [place], [address] Glucose [Mass/Vol] 193 mg/dL High 74-106 [facility] Comment on above: Result Comment: Fast ing Glucose result greater than or equal to 126 mg/dLsuggests DIABETES MELLITUS per A.D.A. criteria. Performed By: #### L 100.0100, L500.2500 ####[facility] [address] [place], [address] Potassium [Moles/Vol] 3.8 mmol/L Normal 3.5-5.1 [facility] Comment on above: Performed By: #### L 100.0100, L500.2500 ####[facility] [address] [place], [address] Sodium [Moles/Vol] 136 mmol/L Normal 136-145 [facility] Comment on above: Performed By: #### L 100.0100, L500.2500 ####[facility] [address] [place], [address] Urea nitrogen [Mass/Vol] 24 mg/dL High 7-18 [facility] Comment on above: Performed By: #### L 100.0100, L500.2500 ####[facility] [address] [place], [address] Bedside Glucoseon 02-26-2024 FINGERSTICK GLU 138 mg/dL High 74-106 [facility] Comment on above: Result Comment: TIGIST GEMENT OF PATIENT CARE PER NURSING PROTOCOL Performed By: #### L 501.080 ####[facility] [address] [place], [address] FINGERSTICK GLU 194 mg/dL High 74-106 [facility] Comment on above: Result Comment: TIGIST GEMENT OF PATIENT CARE PER NURSING PROTOCOL Performed By: #### L 501.080 ####[facility] [address], [address] FINGERSTICK GLU 167 mg/dL High 74-106 [facility] Comment on above: Result Comment: TIGIST GEMENT OF PATIENT CARE PER NURSING PROTOCOL Performed By: #### L 501.080 ####[facility] [address] [place], [address] FINGERSTICK GLU 176 mg/dL High 74-106 [facility] Comment on above: Result Comment: TIGIST GEMENT OF PATIENT CARE PER NURSING PROTOCOL Performed By: #### L 501.080 ####[facility] [address] [place], [address] CBC W/Diff, Automatedon 02-09 Absolute Lymph 2.07 X10 3/uL Normal 0.83-4.51 [facility] Comment on above: Performed By: #### L 100.0100, L500.2500 ####[facility] [address], [address] Absolute Neut 4.0 X10 3/uL Normal 2.0-7.7 [facility] Comment on above: Performed By: #### L 100.0100, L500.2500 ####[facility] [address] [place], [address] Basophils/100 WBC (Bld) 0.3 % Normal 0-1 [facility] Comment on above: Performed By: #### L 100.0100, L500.2500 ####[facility] [address] [place], [address] Eosinophils/100 WBC (Bld) 3.0 % Normal 0-5 [facility] Comment on above: Performed By: #### L 100.0100, L500.2500 ####[facility] [address] [place], [address] Erythrocyte distribution width (RBC) [Ratio] 12.9 % Normal 11.6-14.6 [facility] Comment on above: Performed By: #### L 100.0100, L500.2500 ####[facility] [address] [place], [address] Hematocrit (Bld) [Volume fraction] 29.1 % Low 37-47 [facility] Comment on above: Performed By: #### L 100.0100, L500.2500 ####[facility] [address] [place], [address] Hemoglobin (Bld) [Mass/Vol] 9.8 g/dL Low 12.0-15.0 [facility] Comment on above: Performed By: #### L 100.0100, L500.2500 ####[facility] [address] [place], [address] IG% 0.300 Normal 0.0-0.9 [facility] Comment on above: Result Comment: IG% - Immature Granulocytes (promyelocytes, myelocytes andmetamyelocytes) > 1% indicates that a LEFT SHIFT is Present. Performed By: #### L 100.0100, L500.2500 ####[facility] [address] [place], [address] Lymphocytes/100 WBC (Bld) 30.6 % Normal 19-41 [facility] Comment on above: Performed By: #### L 100.0100, L500.2500 ####[facility] [address] [place], [address] MCH (RBC) [Entitic mass] 30.2 pg Normal 27.0-32.0 [facility] Comment on above: Performed By: #### L 100.0100, L500.2500 ####[facility] [address] [place], [address] MCHC (RBC) [Mass/Vol] 33.7 g/dL Normal 32-36 [facility] Comment on above: Performed By: #### L 100.0100, L500.2500 ####[facility] [address] [place], [address] MCV (RBC) [Entitic vol] 89.5 fL Normal 81-99 [facility] Comment on above: Performed By: #### L 100.0100, L500.2500 ####[facility] [address] [place], [address] Monocytes/100 WBC (Bld) 7.1 % Normal 0-10 [facility] Comment on above: Performed By: #### L 100.0100, L500.2500 ####[facility] [address] [place], [address] Neutrophils/100 WBC (Bld) 58.7 % Normal 47-70 [facility] Comment on above: Performed By: #### L 100.0100, L500.2500 ####[facility] [address] [place], [address] Nucleated RBC (Bld) [#/Vol] 0 10*3/uL Normal 0-5 [facility] Comment on above: Performed By: #### L 100.0100, L500.2500 ####[facility] [address] [place], [address] Platelet mean volume (Bld) [Entitic vol] 12.2 fL High 6.2-12.0 [facility] Comment on above: Performed By: #### L 100.0100, L500.2500 ####[facility] [address] [place], [address] Platelets (Bld) [#/Vol] 130 10*3/uL Low 150-450 [facility] Comment on above: Performed By: #### L 100.0100, L500.2500 ####[facility] [address] [place], [address] RBC (Bld) [#/Vol] 3.25 10*6/uL Low 4.2-5.4 [facility] Comment on above: Performed By: #### L 100.0100, L500.2500 ####[facility] [address] [place], [address] RDW SD 42.1 fl Normal 35.1-43.9 [facility] Comment on above: Performed By: #### L 100.0100, L500.2500 ####[facility] [address] [place], [address] WBC (Bld) [#/Vol] 6.8 10*3/uL Normal 4.4-11.0 [facility] Comment on above: Performed By: #### L 100.0100, L500.2500 ####[facility] [address] [place], [address] Bedside Glucoseon 02-25-2024 FINGERSTICK GLU 146 mg/dL High [address] [facility] Comment on above: Result Comment: TIGIST GEMENT OF PATIENT CARE PER NURSING PROTOCOL Performed By: #### L 501.080 ####[facility] [address] [place], [address] FINGERSTICK GLU 156 mg/dL High [facility]106 [facility] Comment on above: Result Comment: TIGIST GEMENT OF PATIENT CARE PER NURSING PROTOCOL Performed By: #### L 501.080 ####[facility] [address] [place], [address] FINGERSTICK GLU 170 mg/dL High -106 [facility] Comment on above: Result Comment: TIGIST GEMENT OF PATIENT CARE PER NURSING PROTOCOL Performed By: #### L 501.080 ####[facility] [address] [place], [address] FINGERSTICK GLU 195 mg/dL High -106 [facility] Comment on above: Result Comment: TIGIST GEMENT OF PATIENT CARE PER NURSING PROTOCOL Performed By: #### L 501.080 ####[facility] [address] [place], [address] FINGERSTICK GLU 202 mg/dL High 74-106 [facility] Comment on above: Result Comment: TIGIST GEMENT OF PATIENT CARE PER NURSING PROTOCOL Performed By: #### L 501.080 ####[facility] [address] [place], [address] FINGERSTICK GLU 241 mg/dL High 74-106 [facility] Comment on above: Result Comment: TGIIST GEMENT OF PATIENT CARE PER NURSING PROTOCOL Performed By: #### L 501.080 ####[facility] [address] [place], [address] Bilirubin, Directon 02-25-20 24 Bilirubin.direct [Mass/Vol] 0.27 mg/dL Normal 0.00-0.30 [facility] Comment on above: Performed By: #### L 500.4050, L501.4700, L100.0100, L300.3900, L501.9520, L501.5200, L501.2300 ####[facility] [address] [place], [address] CBC W/Diff, Automatedon 02-09 Absolute Lymph 2.51 X10 3/uL Normal 0.83-4.51 [facility] Comment on above: Performed By: #### L 500.4050, L501.4700, L100.0100, L300.3900, L501.9520, L501.5200, L501.2300 ####[facility] [address] [place], [address] Absolute Neut 4.8 X10 3/uL Normal 2.0-7.7 [facility] Comment on above: Performed By: #### L 500.4050, L501.4700, L100.0100, L300.3900, L501.9520, L501.5200, L501.2300 ####[facility] [address] [place], [address] Basophils/100 WBC (Bld) 0.3 % Normal 0-1 [facility] Comment on above: Performed By: #### L 500.4050, L501.4700, L100.0100, L300.3900, L501.9520, L501.5200, L501.2300 ####[facility] [address] [place], [address] Eosinophils/100 WBC (Bld) 0.1 % Normal 0-5 [facility] Comment on above: Performed By: #### L 500.4050, L501.4700, L100.0100, L300.3900, L501.9520, L501.5200, L501.2300 ####[facility] [address] [place], [address] Erythrocyte distribution width (RBC) [Ratio] 12.8 % Normal 11.6-14.6 [facility] Comment on above: Performed By: #### L 500.4050, L501.4700, L100.0100, L300.3900, L501.9520, L501.5200, L501.2300 ####[facility] [address] [place], [address] Hematocrit (Bld) [Volume fraction] 34.0 % Low 37-47 [facility] Comment on above: Performed By: #### L 500.4050, L501.4700, L100.0100, L300.3900, L501.9520, L501.5200, L501.2300 ####[facility] [address] [place], [address] Hemoglobin (Bld) [Mass/Vol] 11.4 g/dL Low 12.0-15.0 [facility] Comment on above: Performed By: #### L 500.4050, L501.4700, L100.0100, L300.3900, L501.9520, L501.5200, L501.2300 ####[facility] [address] [place], [address] IG% 0.100 Normal 0.0-0.9 [facility] Comment on above: Result Comment: IG% - Immature Granulocytes (promyelocytes, myelocytes andmetamyelocytes) > 1% indicates that a LEFT SHIFT is Present. Performed By: #### L 500.4050, L501.4700, L100.0100, L300.3900, L501.9520, L501.5200, L501.2300 ####[facility] [address] [place], [address] Lymphocytes/100 WBC (Bld) 31.6 % Normal 19-41 [facility] Comment on above: Performed By: #### L 500.4050, L501.4700, L100.0100, L300.3900, L501.9520, L501.5200, L501.2300 ####[facility] [address] [place], [address] MCH (RBC) [Entitic mass] 30.2 pg Normal 27.0-32.0 [facility] Comment on above: Performed By: #### L 500.4050, L501.4700, L100.0100, L300.3900, L501.9520, L501.5200, L501.2300 ####[facility] [address] [place], [address] MCHC (RBC) [Mass/Vol] 33.5 g/dL Normal 32-36 [facility] Comment on above: Performed By: #### L 500.4050, L501.4700, L100.0100, L300.3900, L501.9520, L501.5200, L501.2300 ####[facility] [address] [place], [address] MCV (RBC) [Entitic vol] 89.9 fL Normal 81-99 [facility] Comment on above: Performed By: #### L 500.4050, L501.4700, L100.0100, L300.3900, L501.9520, L501.5200, L501.2300 ####[facility] [address] [place], [address] Monocytes/100 WBC (Bld) 7.0 % Normal 0-10 [facility] Comment on above: Performed By: #### L 500.4050, L501.4700, L100.0100, L300.3900, L501.9520, L501.5200, L501.2300 ####[facility] [address] [place], [address] Neutrophils/100 WBC (Bld) 60.9 % Normal 47-70 [facility] Comment on above: Performed By: #### L 500.4050, L501.4700, L100.0100, L300.3900, L501.9520, L501.5200, L501.2300 ####[facility] [address] [place], [address] Nucleated RBC (Bld) [#/Vol] 0 10*3/uL Normal 0-5 [facility] Comment on above: Performed By: #### L 500.4050, L501.4700, L100.0100, L300.3900, L501.9520, L501.5200, L501.2300 ####[facility] [address] [place], [address] Platelet mean volume (Bld) [Entitic vol] 11.8 fL Normal 6.2-12.0 [facility] Comment on above: Performed By: #### L 500.4050, L501.4700, L100.0100, L300.3900, L501.9520, L501.5200, L501.2300 ####[facility] [address] [place], [address] Platelets (Bld) [#/Vol] 160 10*3/uL Normal 150-450 [facility] Comment on above: Performed By: #### L 500.4050, L501.4700, L100.0100, L300.3900, L501.9520, L501.5200, L501.2300 ####[facility] [address] [place], [address] RBC (Bld) [#/Vol] 3.78 10*6/uL Low 4.2-5.4 [facility] Comment on above: Performed By: #### L 500.4050, L501.4700, L100.0100, L300.3900, L501.9520, L501.5200, L501.2300 ####[facility] [address] [place], [address] RDW SD 41.5 fl Normal 35.1-43.9 [facility] Comment on above: Performed By: #### L 500.4050, L501.4700, L100.0100, L300.3900, L501.9520, L501.5200, L501.2300 ####[facility] [address] [place], [address] WBC (Bld) [#/Vol] 8.0 10*3/uL Normal 4.4-11.0 [facility] Comment on above: Performed By: #### L 500.4050, L501.4700, L100.0100, L300.3900, L501.9520, L501.5200, L501.2300 ####[facility] [address] [place], [address] Comprehensive Metabolic Prof [facility] 02-25-2024 Albumin [Mass/Vol] 3.1 g/dL Low 3.2-5.0 [facility] Comment on above: Performed By: #### L 500.4050, L501.4700, L100.0100, L300.3900, L501.9520, L501.5200, L501.2300 ####[facility] [address] [place], [address] Albumin/Globulin [Mass ratio] 1.0 {ratio} Normal 0.9-2.4 [facility] Comment on above: Performed By: #### L 500.4050, L501.4700, L100.0100, L300.3900, L501.9520, L501.5200, L501.2300 ####[facility] [address] [place], [address] ALK P 72 U/L Normal 45-117 [facility] Comment on above: Performed By: #### L 500.4050, L501.4700, L100.0100, L300.3900, L501.9520, L501.5200, L501.2300 ####[facility] [address] [place], [address] ALT [Catalytic activity/Vol] 17 U/L Normal 13-56 [facility] Comment on above: Performed By: #### L 500.4050, L501.4700, L100.0100, L300.3900, L501.9520, L501.5200, L501.2300 ####[facility] [address] [place], [address] AST [Catalytic activity/Vol] 32 U/L Normal 15-37 [facility] Comment on above: Performed By: #### L 500.4050, L501.4700, L100.0100, L300.3900, L501.9520, L501.5200, L501.2300 ####[facility] [address] [place], [address] Bilirubin [Mass/Vol] 1.10 mg/dL High 0.20-1.00 [facility] Comment on above: Result Comment: For patients on eltrombopag therapy, use of Dimension [place] TBIL is not recommended. Performed By: #### L 500.4050, L501.4700, L100.0100, L300.3900, L501.9520, L501.5200, L501.2300 ####[facility] [address] [place], [address] BUN/CRE 21.7 RATIO High 10-20 [facility] Comment on above: Performed By: #### L 500.4050, L501.4700, L100.0100, L300.3900, L501.9520, L501.5200, L501.2300 ####[facility] [address] [place], [address] CA,Total 9.7 mg/dL Normal 8.5-10.1 [facility] Comment on above: Performed By: #### L 500.4050, L501.4700, L100.0100, L300.3900, L501.9520, L501.5200, L501.2300 ####[facility] [address] [place], [place], [id number](134) Chloride [Moles/Vol] 101 mmol/L Normal 98-107 [facility] Comment on above: Performed By: #### L 500.4050, L501.4700, L100.0100, L300.3900, L501.9520, L501.5200, L501.2300 ####[facility] [address] [place], [address] CO2 [Moles/Vol] 27.0 mmol/L Normal 21.0-32.0 [facility] Comment on above: Performed By: #### L 500.4050, L501.4700, L100.0100, L300.3900, L501.9520, L501.5200, L501.2300 ####[facility] [address] [place], [address] Creatinine [Mass/Vol] 1.06 mg/dL High 0.55-1.02 [facility] Comment on above: Result Comment: The validity of the calculated GFR GFRAA in patients over70 years has not been determined. Clinical correlation isessential. Performed By: #### L 500.4050, L501.4700, L100.0100, L300.3900, L501.9520, L501.5200, L501.2300 ####[facility] [address] [place], [address] ECRCL 30.00 ml/min Normal [facility] Comment on above: Performed By: #### L 500.4050, L501.4700, L100.0100, L300.3900, L501.9520, L501.5200, L501.2300 ####[facility] [address] [place], [address] EST GFR - AA 63 mL/min Normal >60 [facility] Comment on above: Result Comment: Afri can Liberian GFR Calc Performed By: #### L 500.4050, L501.4700, L100.0100, L300.3900, L501.9520, L501.5200, L501.2300 ####[facility] [address] [place], [address] GAP 9 Normal 5-15 [facility] Comment on above: Performed By: #### L 500.4050, L501.4700, L100.0100, L300.3900, L501.9520, L501.5200, L501.2300 ####[facility] [address] [place], [address] GFR/1.73 sq M.predicted among non-blacks MDRD (S/P/Bld) [Vol rate/Area] 52 mL/min/{1.73_m2} Low >60 [facility] Comment on above: Result Comment: Non- GFR Calc Performed By: #### L 500.4050, L501.4700, L100.0100, L300.3900, L501.9520, L501.5200, L501.2300 ####[facility] [address] [place], [address] Globulin (S) [Mass/Vol] 3.2 g/dL Normal 2.2-4.2 [facility] Comment on above: Performed By: #### L 500.4050, L501.4700, L100.0100, L300.3900, L501.9520, L501.5200, L501.2300 ####[facility] [address] [place], [address] Glucose [Mass/Vol] 211 mg/dL High 74-106 [facility] Comment on above: Result Comment: Gluc ose result greater than or equal to 200 mg/dLsuggests DIABETES MELLITUS per A.D.A. criteria. Performed By: #### L 500.4050, L501.4700, L100.0100, L300.3900, L501.9520, L501.5200, L501.2300 ####[facility] [address] [place], [address] Potassium [Moles/Vol] 3.3 mmol/L Low 3.5-5.1 [facility] Comment on above: Performed By: #### L 500.4050, L501.4700, L100.0100, L300.3900, L501.9520, L501.5200, L501.2300 ####[facility] [address] [place], [address] Sodium [Moles/Vol] 137 mmol/L Normal 136-145 [facility] Comment on above: Performed By: #### L 500.4050, L501.4700, L100.0100, L300.3900, L501.9520, L501.5200, L501.2300 ####[facility] [address] [place], [address] T PROT 6.3 g/dL Low 6.4-8.2 [facility] Comment on above: Performed By: #### L 500.4050, L501.4700, L100.0100, L300.3900, L501.9520, L501.5200, L501.2300 ####[facility] [address] [place], [address] Urea nitrogen [Mass/Vol] 23 mg/dL High 7-18 [facility] Comment on above: Performed By: #### L 500.4050, L501.4700, L100.0100, L300.3900, L501.9520, L501.5200, L501.2300 ####[facility] [address] [place], [address] Hemoglobin A1con 02-25-2024 HbA1c (Bld) [Mass fraction] 6.3 % High 3.8-5.6 [facility] Comment on above: Result Comment: Norm al < 5.7 % Prediabetic 5.7 - 6.4 % Diabetic >or= 6.5 % Please note range changes. Performed By: #### L 501.9985 ####[facility] [address] [place], [address] Magnesiumon 02-25-2024 Magnesium [Mass/Vol] 1.6 mg/dL Normal 1.6-2.6 [facility] Comment on above: Performed By: #### L 500.4050, L501.4700, L100.0100, L300.3900, L501.9520, L501.5200, L501.2300 ####[facility] [address] [place], [address] Phosphoruson 02-25-2024 Phosphate [Mass/Vol] 3.1 mg/dL Normal 2.5-4.9 [facility] Comment on above: Performed By: #### L 500.4050, L501.4700, L100.0100, L300.3900, L501.9520, L501.5200, L501.2300 ####[facility] [address] [place], [address] Prothrombin Time w/INRon INR Coag (PPP) [Relative time] 1.2 {INR} Normal [facility] Comment on above: Performed By: #### L 500.4050, L501.4700, L100.0100, L300.3900, L501.9520, L501.5200, L501.2300 ####[facility] [address] [place], [address] PT Coag (PPP) [Time] 15.2 s High 11.7-14.9 [facility] Comment on above: Performed By: #### L 500.4050, L501.4700, L100.0100, L300.3900, L501.9520, L501.5200, L501.2300 ####[facility] [address] [place], [address] Thyroid Stim Hormone (TSH)on 02-25-2024 TSH 0.52 uIU/mL Normal 0.358-3.74 [facility] Comment on above: Performed By: #### L 500.4050, L501.4700, L100.0100, L300.3900, L501.9520, L501.5200, L501.2300 ####[facility] [address] [place], [address] 12 Lead EKGon 02-24-2024 12 Lead EKG Normal [facility] Bedside Glucoseon 02-24-2024 FINGERSTICK GLU 183 mg/dL High 74-106 [facility] Comment on above: Result Comment: TIGIST RODRIGEZ OF PATIENT CARE PER NURSING PROTOCOL Performed By: #### L 501.080 ####[facility] [address] [place], [address] Brain/Head without Contrasto n 02-24-2024 Brain/Head without Contrast Normal [facility] CBC W/Diff, Automatedon - REACTIVE LYMPH 1+ Normal [facility] Comment on above: Performed By: #### L 100.0100, L500.4050 ####[facility] [address] [place], [address] SMEAR COMMENT SCANNED Normal [facility] Comment on above: Result Comment: LYMP HOCYTOSIS Performed By: #### L 100.0100, L500.4050 ####[facility] [address] [place], [address] Comprehensive Metabolic Prof ilon 02-24-2024 Albumin [Mass/Vol] 3.5 g/dL Normal 3.2-5.0 [facility] Comment on above: Performed By: #### L 100.0100, L500.4050 ####[facility] [address] [place], [address] Albumin/Globulin [Mass ratio] 0.9 {ratio} Normal 0.9-2.4 [facility] Comment on above: Performed By: #### L 100.0100, L500.4050 ####[facility] [address] [place], [address] ALK P 83 U/L Normal 45-117 [facility] Comment on above: Performed By: #### L 100.0100, L500.4050 ####[facility] [address] [place], [address] ALT [Catalytic activity/Vol] 17 U/L Normal 13-56 [facility] Comment on above: Performed By: #### L 100.0100, L500.4050 ####[facility] [address] [place], [address] AST [Catalytic activity/Vol] 17 U/L Normal 15-37 [facility] Comment on above: Performed By: #### L 100.0100, L500.4050 ####[facility] [address] [place], [address] Bilirubin [Mass/Vol] 0.80 mg/dL Normal 0.20-1.00 [facility] Comment on above: Result Comment: For patients on eltrombopag therapy, use of Dimension [place] TBIL is not recommended. Performed By: #### L 100.0100, L500.4050 ####[facility] [address] [place], [address] BUN/CRE 11.3 RATIO Normal 10-20 [facility] Comment on above: Performed By: #### L 100.0100, L500.4050 ####[facility] [address] [place], [address] CA,Total 9.8 mg/dL Normal 8.5-10.1 [facility] Comment on above: Performed By: #### L 100.0100, L500.4050 ####[facility] [address] [place], [address] Chloride [Moles/Vol] 102 mmol/L Normal 98-107 [facility] Comment on above: Performed By: #### L 100.0100, L500.4050 ####[facility] [address] [place], [address] CO2 [Moles/Vol] 22.0 mmol/L Normal 21.0-32.0 [facility] Comment on above: Performed By: #### L 100.0100, L500.4050 ####[facility] [address] [place], [address] Creatinine [Mass/Vol] 1.24 mg/dL High 0.55-1.02 [facility] Comment on above: Result Comment: The validity of the calculated GFR GFRAA in patients over70 years has not been determined. Clinical correlation isessential. Performed By: #### L 100.0100, L500.4050 ####[facility] [address] [place], [address] ECRCL 26.35 ml/min Normal [facility] Comment on above: Performed By: #### L 100.0100, L500.4050 ####[facility] [address] [place], [address] EST GFR - AA 52 mL/min Low >60 [facility] Comment on above: Result Comment: Afri can Liberian GFR Calc Performed By: #### L 100.0100, L500.4050 ####[facility] [address] [place], [address] GAP 12 Normal 5-15 [facility] Comment on above: Performed By: #### L 100.0100, L500.4050 ####[facility] [address] [place], [address] GFR/1.73 sq M.predicted among non-blacks MDRD (S/P/Bld) [Vol rate/Area] 43 mL/min/{1.73_m2} Low >60 [facility] Comment on above: Result Comment: Non- GFR Calc Performed By: #### L 100.0100, L500.4050 ####[facility] [address] [place], [address] Globulin (S) [Mass/Vol] 3.9 g/dL Normal 2.2-4.2 [facility] Comment on above: Performed By: #### L 100.0100, L500.4050 ####[facility] [address] [place], [address] Glucose [Mass/Vol] 339 mg/dL High 74-106 [facility] Comment on above: Result Comment: Gluc ose result greater than or equal to 200 mg/dLsuggests DIABETES MELLITUS per A.D.A. criteria. Performed By: #### L 100.0100, L500.4050 ####[facility] [address] [place], [address] Potassium [Moles/Vol] 3.4 mmol/L Low 3.5-5.1 [facility] Comment on above: Performed By: #### L 100.0100, L500.4050 ####[facility] [address] [place], [address] Sodium [Moles/Vol] 136 mmol/L Normal 136-145 [facility] Comment on above: Performed By: #### L 100.0100, L500.4050 ####[facility] [address] [place], [address] T PROT 7.4 g/dL Normal 6.4-8.2 [facility] Comment on above: Performed By: #### L 100.0100, L500.4050 ####[facility] [address] [place], [address] Urea nitrogen [Mass/Vol] 14 mg/dL Normal 7-18 [facility] Comment on above: Performed By: #### L 100.0100, L500.4050 ####[facility] [address] [place], [address] Consultation - Orthopedicson 02-24-2024 Consultation - Orthopedics Normal [facility] Emergency Department Summary on 02-24-2024 Emergency Department Summary Normal [facility] Extremity Upper without Cont raon 02-24-2024 Extremity Upper without Contra Normal [facility] H AND P Exam - Hospitaliston 02-24-2024 H&P Exam - Hospitalist Normal [facility] Shoulder min 2 Viewson 02-23 Shoulder min 2 Views Normal [facility] Sinus/Facial Boneon 02-24-20 Sinus/Facial Bone Normal [facility] Spine Cervical without Contr ason 02-24-2024 Spine Cervical without Contras Normal [facility] Pacemaker Checkon 02-21-2024 Pacemaker Check Normal [facility] Cardiology Visit Reporton Cardiology Visit Report Normal [facility] Vital Signs Date Time Vital Sign Value Performing Clinician Faci lity 10-17-2024 10:26-0500 Body height 152.[address] Elgin Orozco MD Work Phone: [facility] 10-17-2024 10:26-0500 Body mass index (BMI) [Ratio] 26.7 kg/m2 Dr. Elgin Orozco MD Work Phone: [facility] 10-17-2024 10:26-0500 Body weight 62.[address] Elgin Orozco MD Work Phone: [facility] 10-17-2024 10:26-0500 Diastolic blood pressure 52 mm[Hg] Dr. Elgin Orozco MD Work Phone: [facility] 10-17-2024 10:26-0500 Heart rate 53 /min Dr. Elgin Orozco MD Work Phone: [facility] 10-17-2024 10:26-0500 Respiratory rate 16 /min Dr. Elgin Orozco MD Work Phone: [facility] 10-17-2024 10:26-0500 Systolic blood pressure 104 mm[Hg] Dr. Elgin Orozco MD Work Phone: [facility] 02-14-2023 13:06-0400 Body height 152.[address] Maria Teresa Pedroza Work Phone: [facility] 02-14-2023 13:06-0400 Body mass index (BMI) [Ratio] 29.9 kg/m2 Dr. Maria Teresa Pedroza Work Phone: [facility] 02-14-2023 13:06-0400 Body weight 69.[address] Maria Teresa Pedroza Work Phone: [facility] 02-14-2023 13:06-0400 Diastolic blood pressure 75 mm[Hg] Dr. Maria Teresa Pedroza Work Phone: [facility] 02-14-2023 13:06-0400 Heart rate 74 /min Dr. Maria Teresa Pedroza Work Phone: [facility] 02-14-2023 13:06-0400 Respiratory rate 16 /min Dr. Maria Teresa Pedroza Work Phone: [facility] 02-14-2023 13:06-0400 Systolic blood pressure 139 mm[Hg] Dr. Maria Teresa Pedroza Work Phone: [facility] Encounters Encounter Date Encounter Type Care Provider Facility Start: 02-12-2025 ambulatory Rachel Lr cility:[facility] Start: 01-21-2025 End: 01-21-[address] Elgin Orozco MD Work Phone: [facility] Work Phone: Start: 01-21-2025 End: 01-21-2025 [facility] Start: 01-21-2025 [facility] Start: 01-21-2025 End: 01-21-2025 ambulatory Elgin Orozco Facility:[facility] Start: 01-15-2025 End: 01-15-[address] Elgin Orozco MD Work Phone: [facility] Work Phone: Start: 01-15-2025 End: 01-15-2025 [facility] Start: 01-15-2025 End: 01-15-2025 ambulatory Elgin Orozco Facility:[facility] Start: 01-13-2025 End: 01-13-2025 ambulatory Mukul Lunsford Facility:[facility] Start: 01-13-2025 End: 01-13-[address] Mukul Lunsford MD -[facility] Work Phone: Start: 12-17-2024 End: 12-17-2024 [facility] Start: 12-17-2024 [facility] Start: 12-17-2024 End: 12-17-2024 ambulatory Efewluis Dalton OLS Facility:[facility] Start: 12-11-2024 End: 12-11-[address] Elgin Orozco MD Work Phone: [facility] Work Phone: Start: 12-11-2024 End: 12-11-2024 [facility] Start: 12-11-2024 [facility] Start: 12-11-2024 End: 12-11-2024 ambulatory Efjose miguel FRANZ Facility:[facility] Start: 11-19-2024 End: 11-19-2024 ambulatory Efewkatarzynabe Sha Facility:[facility] Start: 11-19-2024 End: 11-19-[address] Rachel Dalton MD -[facility] Work Phone: Start: 11-19-2024 End: 11-19-2024 [facility] Start: 11-19-2024 End: 11-19-2024 ambulatory Efewluis FRANZ Facility:[facility] Start: 11-13-2024 End: 11-13-[address] Elgin Orozco MD Work Phone: [facility] Work Phone: Start: 11-13-2024 End: 11-13-2024 [facility] Start: 11-13-2024 End: 11-13-2024 ambulatory Jamelkatarzynadino Tylerlibiacharles FRANZ Facility:[facility] Start: 10-25-2024 ambulatory Jamelluis Dalton OLS Fa cility:[facility] Start: 10-25-2024 [facility] Start: 10-24-2024 End: 10-24-2024 ambulatory Juileta Zeng [employer] Facility:[facility] Start: 10-24-2024 End: 10-24-2024 Patient encounter procedure Julieta Zeng [employer]- -[facility] Work Phone: Start: 10-22-2024 ambulatory Jamelluis FRANZ Fa cility:[facility] Start: 10-22-2024 [facility] Start: 10-17-2024 End: 10-17-2024 ambulatory Maria Teresa Malalbina Facility:[facility] Start: 10-17-2024 End: 10-17-[address] Mukul Lunsford MD -[facility] Work Phone: Start: 10-16-2024 ambulatory Chasejose miguel FRANZ Fa cility:[facility] Start: 10-16-2024 [facility] Start: 09-24-2024 End: 09-24-2024 ambulatory Jamelkatarzynadino Sha Facility:[facility] Start: 09-24-2024 End: 09-24-[address] Rachel Dalton MD -[facility] Work Phone: Start: 09-24-2024 ambulatory Rachel FRANZ Fa cility:[facility] Start: 09-24-2024 [facility] Start: 09-13-2024 ambulatory Rachel FRANZ Fa cility:[facility] Start: 09-13-2024 [facility] Start: 08-29-2024 ambulatory Rachel FRANZ Fa cility:[facility] Start: 08-29-2024 [facility] Start: 08-28-2024 End: 08-28-2024 ambulatory Julieta Zeng NP Facility:[facility] Start: 08-28-2024 End: 08-28-2024 Patient encounter procedure Julieta Zeng [employer]- -[facility] Work Phone: Start: 08-20-2024 ambulatory Rachel Dalton OLS Fa cility:[facility] Start: 08-20-2024 [facility] Start: 08-14-2024 ambulatory Rachel Dalton OLS Fa cility:[facility] Start: 08-13-2024 End: 08-13-2024 ambulatory Elgin Orozco Facility:[facility] Start: 08-10-2024 ambulatory Cecil Knight Fac ility:[facility] Start: 08-10-2024 End: 08-12-2024 Evaluation and management of inpatient Cecil Knight Facility:[facility] Start: 08-09-2024 End: 08-09-2024 ambulatory Maria Teresa Malys Facility:[facility] Start: 07-23-2024 End: 07-23-2024 ambulatory Maria Teresa Malys Facility:[facility] Start: 07-17-2024 ambulatory Maria Teresa Malys Facility:[facility] Start: 07-16-2024 End: 07-16-2024 ambulatory Christopher Micheleney Facility:[facility] Start: 06-18-2024 End: 06-18-2024 ambulatory Maria Teresa Malys [facility] [facility] Start: 06-14-2024 End: 06-14-2024 ambulatory Christopher Pam [facility] Start: 06-12-2024 End: 06-12-2024 ambulatory Maria Teresa Malys Facility:[facility] Start: 05-28-2024 End: 05-28-2024 ambulatory Maria Teresa Malys Facility:[facility] Start: 05-21-2024 End: 05-21-2024 ambulatory Maria Teresa Malys Facility:[facility] Start: 05-15-2024 ambulatory Maria Teresa Malys Facility:[facility] Start: 05-09-2024 End: 05-09-2024 ambulatory Maria Teresa Malys Facility:[facility] Start: 05-02-2024 End: 05-02-2024 ambulatory Maria Teresa Malys Facility:[facility] Start: 04-09-2024 End: 04-09-2024 ambulatory Maria Teresa Malys Facility:[facility] Start: 03-25-2024 End: 03-26-2024 ambulatory Maria Teresa Malys Facility:[facility] Start: 03-19-2024 End: 03-19-2024 ambulatory Maria Teresa Malys Facility:[facility] Start: 03-18-2024 End: 03-18-2024 ambulatory Maria Teresa Malys Facility:[facility] Start: 03-07-2024 End: 03-07-2024 ambulatory Maria Teresa Malys Facility:[facility] Start: 02-27-2024 End: 03-15-2024 Evaluation and management of inpatient Maria Teresa Malys Facility:[facility] Start: 02-24-2024 End: 02-27-2024 ambulatory Maria Teresa Malys Facility:[facility] Start: 02-24-2024 ambulatory Maria Teresa Malys [facility] Start: 02-21-2024 End: 02-21-2024 ambulatory Maria Teresa Malys Facility:[facility] Start: 02-19-2024 End: 02-19-2024 ambulatory Maria Teresa Malys Facility:[facility] Start: 03-03-2023 Non-patient / Non-visit Dr. Maria Teresa Pedroza Work Phone: [facility] Start: 03-03-2023 End: 03-03-[address] Maria Teresa Pedroza Work Phone: [facility] Work Phone: Start: 03-03-2023 End: 03-03-[address] Maria Teresa Pedroza Work Phone: [facility] Work Phone: Start: 02-14-2023 End: 02-14-[address] Maria Teresa Pedroza Work Phone: [facility] Work Phone: Start: 01-10-2023 End: 01-10-[address] Maria Teresa Pedroza Work Phone: [facility] Work Phone: Procedures Date Procedure Procedure Detail Performing Clinician Start: 10-25-[address] Og Orozco MD Work Phone: Start: 10-25-2024 Urnls dip stick/tabl et reagent auto microscopy Dr. Elgin Orozco MD Work Phone: Start: 10-22-2024 Measurement of renal function Dr. Elgin Orozco MD Work Phone: Comment on above: GFR Calc Start: 10-16-2024 Measurement of renal function Dr. Elgin Orozco MD Work Phone: Comment on above: GFR Calc Start: 08-29-[address] Og Orozco MD Work Phone: Immunizations Immunization Date Immunization Notes Care Provider [facility] 03-06-2024 Covid (Spikevax) Dr. Edward Orozco MD Work Phone: [facility] 07-14-2023 Influenza High-Dose Quadrivalent Dr. Elgin Orozco MD Work Phone: [facility] 07-14-2021 Covid (Moderna) Dr. Betty Orozco MD Work Phone: [facility] 11-05-2020 Covid (Moderna) Dr. Betty Orozco MD Work Phone: [facility] 10-08-2020 Covid (Moderna) Dr. Betty Orozco MD Work Phone: [facility] 06-30-2020 influenza, injectabl e, quadrivalent, preservative free Dr. Elgin Orozco MD Work Phone: [facility] 06-30-2020 influenza, seasonal, injectable Dr. Maria Teresa Pedroza Work Phone: [facility] 06-30-2020 Seasonal, quadrivalent, recombinant, injectable influenza vaccine, preservative free Dr. Elgin Orozco MD Work Phone: [facility] 09-09-2009 novel [id number], preservative-free, injectable Dr. Elgin Orozco MD Work Phone: [facility] 07-11-2008 influenza, injectabl e, quadrivalent, preservative free Dr. Elgin Orozco MD Work Phone: [facility] 07-30-2007 influenza, injectabl e, quadrivalent, preservative free Dr. Elgin Orozco MD Work Phone: [facility] Payers Date Payer Category Payer Unknown [id number] 2024 Self-pay [id number] 2023 Unknown [id number] 2023 Unknown [id number] 2016 Medicare [id number] Unknown [facility] [id number] 1 [id number] Unknown [id number] 2.16.8 40.1.023456.3.579.2.462 Unknown [id number] 2.16.8 40.1.286315.3.579.2.462 Unknown [id number] 2.16.8 40.1.835822.3.579.2.462 Unknown [id number] 2.16.8 40.1.606232.3.579.2.462 Unknown [id number] 2.16.8 40.1.131433.3.579.2.462 Unknown [id number] 2.16.8 40.1.674423.3.579.2.462 Unknown [id number] 2.16.8 40.1.933653.3.579.2.462 Unknown [id number] 2.16.8 40.1.097185.3.579.2.462 Unknown [id number] 2.16.8 40.1.620184.3.579.2.462 Unknown [id number] 2.16.8 40.1.601923.3.579.2.462 Unknown [id number] 2.16.8 40.1.449237.3.579.2.462 Unknown [id number] 2.16.8 40.1.981616.3.579.2.462 Unknown [id number] 2.16.8 40.1.085008.3.579.2.462 Unknown [id number] 2.16.8 40.1.658242.3.579.2.462 Unknown [id number] 2.16.8 40.1.747565.3.579.2.462 Unknown [id number] 2.16.8 40.1.648380.3.579.2.462 Unknown [id number] 2.16.8 40.1.588875.3.579.2.462 Unknown [id number] 2.16.8 40.1.596916.3.579.2.462 Unknown [id number] 2.16.8 40.1.851028.3.579.2.462 Unknown [id number] 2.16.8 40.1.245947.3.579.2.462 Unknown [id number] 2.16.8 40.1.140799.3.579.2.462 Unknown [id number] 2.16.8 40.1.068534.3.579.2.462 Unknown [id number] 2.16.8 40.1.726697.3.579.2.462 Unknown [id number] 2.16.8 40.1.928543.3.579.2.462 Unknown [id number] 2.16.8 40.1.584683.3.579.2.462 Unknown [id number] 2.16.8 40.1.956990.3.579.2.462 Unknown [id number] 2.16.8 40.1.825048.3.579.2.462 Unknown [id number] 2.16.8 40.1.431069.3.579.2.462 Unknown [id number] 2.16.8 40.1.724798.3.579.2.462 Unknown [id number] 2.16.8 40.1.374611.3.579.2.462 Unknown [id number] 2.16.8 40.1.516250.3.579.2.462 Unknown [id number] 2.16.8 40.1.082812.3.579.2.462 Unknown [id number] 2.16.8 40.1.925456.3.579.2.462 Unknown [id number] 2.16.8 40.1.429778.3.579.2.462 Unknown [id number] 2.16.8 40.1.296981.3.579.2.462 Unknown [id number] 2.16.8 40.1.342780.3.579.2.462 Unknown [id number] 2.16.8 40.1.961830.3.579.2.462 Unknown [id number] 2.16.8 40.1.262202.3.579.2.462 Unknown [id number] 2.16.8 40.1.171604.3.579.2.462 Unknown [id number] 2.16.8 40.1.651750.3.579.2.462 Unknown [id number] 2.16.8 40.1.925927.3.579.2.462 Unknown [id number] 2.16.8 40.1.986388.3.579.2.462 Unknown [id number] 2.16.8 40.1.049798.3.579.2.462 Unknown [id number] 2.16.8 40.1.632920.3.579.2.462 Unknown [id number] 2.16.8 40.1.657473.3.579.2.462 Unknown [id number] 2.16.8 40.1.299191.3.579.2.462 Unknown [id number] 2.16.8 40.1.283662.3.579.2.462 Unknown [id number] 2.16.8 40.1.302334.3.579.2.462 Unknown [id number] 2.16.8 40.1.597253.3.579.2.462 Unknown [id number] 2.16.8 40.1.462220.3.579.2.462 Unknown [id number] 2.16.8 40.1.330332.3.579.2.462 Unknown [id number] 2.16.8 40.1.837296.3.579.2.462 Unknown [id number] 2.16.8 40.1.243984.3.579.2.462 Unknown [id number] 2.16.8 40.1.409104.3.579.2.462 Unknown [id number] 2.16.8 40.1.746841.3.579.2.462 Unknown [id number] 2.16.8 40.1.688059.3.579.2.462 Unknown [id number] 2.16.8 40.1.041583.3.579.2.462 Social History Date Type Detail Facility Start: 02-14-2023 Tobacco smoking stat [facility] Unknown if ever smoked [facility] Start: 12-29-2020 None [facility] Start: 12-29-2020 Alone [facility] Start: 12-29-2020 Non-smoker [facility] Start: 1935 Sex Assigned At Female [facility] Start: 08-10-2024 [facility] Start: 12-13-2024 End: 01-01-2025 Sex Female (finding) [facility] Evaluation note 10-17-2024 Note Date & Type Note Facility 10-17-2024 Evaluation note Diagnosis Onset Date Resolution Chronic systolic (congestive) heart failure chronic October 17, 2024 10:23am History of implantable cardiac defibrillator (ICD) January 31, 2013 chronic October 17, 2024 10:23am Left bundle-branch block chronic October 17, 2024 10:23am Nonischemic cardiomyopathy chronic October 17, 2024 10:23am Ventricular tachycardia chronic October 17, 2024 10:23am Essential (primary) hypertension chronic October 17, 2024 10:24am History of implantable cardiac defibrillator (ICD) January 31, 2013 chronic October 17, 2024 10:24am Nonischemic cardiomyopathy chronic October 17, 2024 10:24am 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, implant or graft chronic October 17, 2024 10:24am [facility] Work Phone: Discharge summary note 08-12-2024 Note Date & Type Note Facility 08-12-2024 Note [facility] Discharge summary note 03-12-2024 Note Date & Type Note Facility 03-12-2024 Note [facility] Clinical Note 02-27-2024 Note Date & Type Note Facility 02-27-2024 Note [facility] Discharge summary note 02-27-2024 Note Date & Type Note Facility 02-27-2024 Note [facility] Evaluation note 01-31-2013 Note Date & Type Note Facility 01-31-2013 Evaluation note Diagnosis Onset Date Chronic systolic (congestive ) heart failure chronic History of implantable cardi ac defibrillator (ICD) January 31, 2013 chronic Nonischemic cardiomyopathy c hronic Essential (primary) hypertension chronic History of implantable cardi ac defibrillator (ICD) January 31, 2013 chronic Nonischemic cardiomyopathy c hronic 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, implant or graft chronic [facility] Work Phone: Reason for referral (narrative) Note Date & Type Note Facility Reason for referral (narrative) No reason for referral information available [facility] Work Phone: Chief Complaint and Reason for Visit Chief Complaint 3 mos ICD f/u 1 Y FU PREVIOUS RV LEAD THROMBUS, DILATED CARDIOMYOPATHY Reason for Visit Chronic systolic (co ngestive) heart failure History of implantable cardiac defibrillator (ICD) Nonischemic cardiomyopathy Essential (primary) hypertension History of implantable cardiac defibrillator (ICD) Nonischemic cardiomyopathy 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, implant or graft Chief Complaint Admit Date LAB WORK August 20, 2024 5:00am MONTHLY EXAM August 28, 2024 4:31pm LABWORK August 29, 2024 3:00pm [facility] LAB WORK September 13, 2024 5:00am [facility] WORK September 24, 2024 5:40am MONTHLY EXAM September 24, 2024 1 0:02pm [facility] LAB WORK October 16, 2024 4:00am Pacer Check Remote October 17, 2024 9 :00am 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, 2024 1 0:23am 1 Y FU/YARELY @ 10:30 October 17, 2024 1 0:24am [facility] LAB WORK October 22 5:00am MONTHLY EXAM October 24, 2024 2:08pm LABWORK October 25, 2024 4:38am LABWORK November 13, 2024 5:00 am [facility] LAB WORK November 19, 2024 4 :00am Reason for Visit Admit Date Chronic systolic (congestive) heart fail ure October 17, 2024 10:23am History of implantable cardiac defibrill ator (ICD) October 17, 2024 10:23am Left bundle-branch block October 17, 025 10:23am Nonischemic cardiomyopathy October 17, 2024 10:23am Ventricular tachycardia October 17 10:23am Essential (primary) hypertension 2024 10:24am History of implantable cardiac defibrill ator (ICD) October 17, 2024 10:24am Nonischemic cardiomyopathy October 17, 2024 10:24am 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, implant or g raft October 17, 2024 10:24am Chief Complaint Admit Date [facility] LAB WORK September 13, 2024 5:00am [facility] LAB WORK September 24, 2024 5:40am MONTHLY EXAM September 24, 2024 1 0:02pm [facility] LAB WORK October 16, 2024 4:00am Pacer Check Remote October 17, 2024 9 :00am 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, 2024 1 0:23am 1 Y FU/YARELY @ 10:30 October 17, 2024 1 0:24am [facility] LAB WORK October 22 5:00am MONTHLY EXAM October 24, 2024 2:08pm LABWORK October 25, 2024 4:38am LABWORK November 13, 2024 5:00 am [facility] LAB WORK November 19, 2024 4 :00am MONTHLY EXAM November 19, 2024 5:3 2pm LABWORK December 11, 2024 5:00 am Chief Complaint Admit Date [facility] LAB WORK October 16, 2024 4:00am Pacer Check Remote October 17, 2024 9 :00am 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, 2024 1 0:23am 1 Y FU/YARELY @ 10:30 October 17, 2024 1 0:24am [facility] LAB WORK October 22 5:00am MONTHLY EXAM October 24, 2024 2:08pm LABWORK October 25, 2024 4:38am LABWORK November 13, 2024 5:00 am [facility] LAB WORK November 19, 2024 4 :00am MONTHLY EXAM November 19, 2024 5:3 2pm LABWORK December 11, 2024 5:00 am [facility] LAB WORK December 17, 2024 5: 00am Pacer Check Remote January 13, 2025 1:22am LABWORK January 15, 2025 5:00am Chief Complaint Admit Date [facility] LAB WORK October 16, 2024 4:00am Pacer Check Remote October 17, 2024 9 :00am 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, 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 1 0:23am 1 Y FU/YARELY @ 10:30 October 17, 2024 1 0:24am [facility] LAB WORK October 22 5:00am MONTHLY EXAM October 24, 2024 2:08pm LABWORK October 25, 2024 4:38am LABWORK November 13, 2024 5:00 am [facility] LAB WORK November 19, 2024 4 :00am MONTHLY EXAM November 19, 2024 5:3 2pm LABWORK December 11, 2024 5:00 am [facility] LAB WORK December 17, 2024 5: 00am Pacer Check Remote January 13, 2025 1:22am LABWORK January 15, 2025 5:00am LABWORK May 13th, 2025 5:00a m Family History No Family History Records Found Relationship Condition Age at Onset Recorded Date/T damian mother Coronary artery disease Unknown Congestive heart failure Unknown father Diabetes mellitus Unknown Advance Directives No Advanced Directives Records Found Advance Directive Response Recorded Date/ Time Living Will No December 29, 2020 6:30pm Power of Director Of Partner Marketing No December 29 6:30pm Advance Directive Response Recorded Date/ Time Living Will No December 29, 2020 6:30pm Do you have a Healthcare Power of Director Of Partner Marketing? No December 29, 2020 6:30pm Summary Purpose Additional Source Comments Care Teams (unrecognized sec tion and content) Team Status: Active Member Role Status Dates Dr. Maria Teresa Pedroza , DO Primary Care Provider Active Team Status: Inactive Member Role Status Dates Dr. Maria Teresa Pedroza , DO Primary Care Provider, Referring P rovider Active Dr. Mukul Lunsford MD Attending Provider Active Team Status: Inactive Member Role Status Dates Dr. Maria Teresa Pedroza DO Primary Care Provider, Referring P rovider Active Honey Willis Attending Provider Active Team Status: Active Member Role Status Dates Dr. Maria Teresa Pedroza DO Primary Care Provider Active Dr. Mukul Lunsford MD Attending Provider Active Team Status: Inactive Member Role Status Dates Dr. Maria Teresa Pedroza DO Primary Care Provider Active Dr. Mukul Lunsford MD Attending Provider, Referring Pro vider Active Team Status: Active Member Role Status Dates Dr. Elgin Orozco MD Primary Care Provider Acti ve Team Status: Active Member Role Status Dates Dr. Elgin Orozco MD Primary Care Provider Acti ve Start: August 20, 2024 Rachel FRANZ MD Attending Provider Active Start: August 20, 2024 Team Status: Inactive Member Role Status Dates Dr. Elgin Orozco MD Primary Care Provider Acti ve Start: August 28, 2024 End: August 28, 2024 Julieta Zeng NP, [employer]-C Attending Provider Active Start: August 28, 2024 End: August 28, 2024 Team Status: Active Member Role Status Dates Dr. Elgin Orozco MD Primary Care Provider Acti ve Start: August 29, 2024 Rachel FRANZ MD Attending Provider Active Start: August 29, 2024 Team Status: Active Member Role Status Dates Dr. Elgin Orozco MD Primary Care Provider Acti ve Start: September 13, 2024 Rachel FRANZ MD Attending Provider Active Start: September 13, 2024 Team Status: Active Member Role Status Dates Dr. Elgin Orozco MD Primary Care Provider Acti ve Start: September 24, 2024 Rachel FRANZ MD Attending Provider Active Start: September 24, 2024 Team Status: Inactive Member Role Status Dates Dr. Elgin Orozco MD Primary Care Provider Acti ve Start: September 24, 2024 End: September 24, 2024 Dr. Rachel Dalton MD Attending Provider Active Start: September 24, 2024 End: September 24, 2024 Team Status: Active Member Role Status Dates Dr. Elgin Orozco MD Primary Care Provider Acti ve Start: October 16, 2024 Rachel FRANZ MD Attending Provider Active Start: October 16, 2024 Rachel FRANZ MD Referring Provider Active Start: October 16, 2024 Team Status: Inactive Member Role Status Dates Dr. Elgin Orozco MD Primary Care Provider Acti ve Start: October 17, 2024 End: October 17, 2024 Dr. Mukul Lunsford MD Attending Provider Active S tart: October 17, 2024 End: October 17, 2024 Team Status: Inactive Member Role Status Dates Dr. Maria Teresa Pedroza DO Referring Provider Active St art: October 17, 2024 End: October 17, 2024 Dr. Elgin Orozco MD Primary Care Provider Acti ve Start: October 17, 2024 End: October 17, 2024 Dr. Mukul Lunsford MD Attending Provider Active S tart: October 17, 2024 End: October 17, 2024 Team Status: Inactive Member Role Status Dates Dr. Maria Teresa Pedroza DO Referring Provider Active St art: October 17, 2024 End: October 17, 2024 Dr. Mukul Lunsford MD Attending Provider Active S tart: October 17, 2024 End: October 17, 2024 Dr. Elgin Orozco MD Primary Care Provider Acti ve Start: October 17, 2024 End: October 17, 2024 Team Status: Active Member Role Status Dates Dr. Elgin Orozco MD Primary Care Provider Acti ve Start: October 22, 2024 Rachel FRANZ MD Attending Provider Active Start: October 22, 2024 Team Status: Inactive Member Role Status Dates Dr. Elgin Orozco MD Primary Care Provider Acti ve Start: October 24, 2024 End: October 24, 2024 Julieta Zeng [employer]ER, [employer]-C Attending Provider Active Start: October 24, 2024 End: October 24, 2024 Team Status: Active Member Role Status Dates Dr. Elgin Orozco MD Primary Care Provider Acti ve Start: October 25, 2024 Rachel FRANZ MD Attending Provider Active Start: October 25, 2024 Team Status: Inactive Member Role Status Dates Dr. Elgin Orozco MD Primary Care Provider Acti ve Start: November 13, 2024 End: November 13, 2024 Rachel FRANZ MD Attending Provider Active Start: November 13, 2024 End: November 13, 2024 Team Status: Inactive Member Role Status Dates Dr. Elgin Orozco MD Primary Care Provider Acti ve Start: November 19, 2024 End: November 19, 2024 Rachel FRANZ MD Attending Provider Active Start: November 19, 2024 End: November 19, 2024 Rachel FRANZ MD Referring Provider Active Start: November 19, 2024 End: November 19, 2024 Team Status: Active Member Role Status Dates Dr. Elgin Orozco MD Primary Care Provider Acti ve Start: December 11, 2024 Rachel FRANZ MD Attending Provider Active Start: December 11, 2024 Team Status: Inactive Member Role Status Dates Dr. Elgin Orozco MD Primary Care Provider Acti ve Start: November 19, 2024 End: November 19, 2024 Dr. Rachel Dalton MD Attending Provider Active Start: November 19, 2024 End: November 19, 2024 Team Status: Inactive Member Role Status Dates Dr. Elgin Orozco MD Primary Care Provider Acti ve Start: December 11, 2024 End: December 11, 2024 Rachel FRANZ MD Attending Provider Active Start: December 11, 2024 End: December 11, 2024 Team Status: Active Member Role Status Dates Dr. Elgin Orozco MD Primary Care Provider Acti ve Start: December 17, 2024 Rachel FRANZ MD Attending Provider Active Start: December 17, 2024 Team Status: Inactive Member Role Status Dates Dr. Elgin Orozco MD Primary Care Provider Acti ve Start: December 17, 2024 End: December 17, 2024 Rachel FRANZ MD Attending Provider Active Start: December 17, 2024 End: December 17, 2024 Team Status: Inactive Member Role Status Dates Dr. Elgin Orozco MD Primary Care Provider Acti ve Start: January 13, 2025 End: January 13, 2025 Dr. Mukul Lunsford MD Attending Provider Active S tart: January 13, 2025 End: January 13, 2025 Team Status: Inactive Member Role Status Dates Dr. Elgin Orozco MD Primary Care Provider Acti ve Start: January 15, 2025 End: January 15, 2025 Rachel FRANZ MD Attending Provider Active Start: January 15, 2025 End: January 15, 2025 Team Status: Active Member Role Status Dates Dr. Elgin Orozco MD Primary Care Provider Acti ve Start: January 21, 2025 Rachel FRANZ MD Attending Provider Active Start: January 21, 2025 Team Status: Inactive Member Role Status Dates Dr. Elgin Orozco MD Primary Care Provider Acti ve Start: January 21, 2025 End: January 21, 2025 Rachel FRANZ MD Attending Provider Active Start: January 21, 2025 End: January 21, 2025 Goals (unrecognized section and content) Goals may be documented in a n alternate sectionGoals may be documented in an alternate sectionGoals may be documented in an alternate sectionGoals may be documented in an alternate sectionGoals may be documented in an alternate section INFORMATION SOURCE (unrecogn ized section and content) DATE CREATED AUTHOR 02/13/2025 [facility] FOR RECORDS PERTAINING TO PATIENTS WHO ARE OR HAVE BEEN ENROLLED IN A CHEMICAL DEPENDENCY/SUBSTANCEABUSE PROGRAM, SOME INFORMATION MAY BE OMITTED. This clinical summary was aggregated from multiple sources. Caution should be exercised in using it in the provision of clinical care. This summary normalizes information from multiple sources, and as a consequence, information in this document may materially change the coding, format and clinical context of patient data. In addition, data may be omitted in some cases. CLINICAL DECISIONS SHOULD BE BASED ON THE PRIMARY CLINICAL RECORDS. [facility] [employer] [facility]. provides no warranty or guarantee of the accuracy or completeness of information in this document.
[2025-02-18 07:51] LABS: Absolute Lymphocyte Count 2.68 X10^3/uL (0.83-4.51); Absolute Neutrophil Count 2.3 X10^3/uL (2.0-7.7); Basophil# 0.03 X10^3/uL; Basophil% 0.5 % (0-1); Eosinophils% 5.3 % (0-5); Hematocrit 33.6 % (37-47); Lymphocyte # 2.68 X10^3/ul (0.83-4.51); Lymphocyte % 47.7 % (19-41); Mean Corp Hgb Conc 32.7 g/dL (32-36); Mean Corpuscular Hgb 30.1 pg (27.0-32.0); Mean Corpuscular Volume 92.1 fL (81-99); Mean Platelet Vol. 9.8 fl (6.2-12.0); Monocyte# 0.31 X10^3/uL; Monocyte% 5.5 % (0-10); NRBC Flagged by Analyzer 0 % (0-5); Neutrophil # 2.29 X10^3/uL (2.7-7.7); Neutrophil % 40.8 % (47-70); Platelet Count 214 K/mm3 (150-450); RBC Distribution Width CV 12.6 % (11.6-14.6); RBC Distribution Width SD 42.3 fl (35.1-43.9); Red Blood Count 3.65 M/mm3 (4.2-5.4); White Blood Count 5.6 K/mm3 (4.4-11.0)
[2025-02-18 08:01] LABS: Anion Gap 10 (5-15); BUN 19 mg/dL (4-19); BUN/Creat Ratio 22.8 RATIO (10-20); Calcium,Total 10.2 mg/dL (7.6-11.0); Carbon Dioxide 23.3 mmol/L (21.0-32.0); Chloride 106 mmol/L (98-108); Creatinine, Serum 0.82 mg/dL (0.70-1.20); EST Glomerular Filtration Rate 68 (>60); Glucose 120 mg/dL (70-99); Potassium 4.6 mmol/L (3.3-5.1); Sodium Level 140 mmol/L (133-145)
== END ==
LOC: OLS.WHLEAS 05:00
PROVIDERS: PCP Family Medicine; Visit Provider Internal Medicine
DX: M62.562 Muscle wasting and atrophy, not elsewhere classified, left lower leg (principal)
CPT/HCPCS: 36415; 80048; 85025

== ENCOUNTER → 2025-03-12 | Outpatient (REF) | payer MEDICARE, MEDICAID, SELFPAY ==
--- OUTSIDE RECORDS SUMMARY | 2025-03-12 05:01 | XMS RPT_ITS | CCD ---
Author Organization [facility] Care Team Providers Care Laborer Laboratory Name Role Phone Dr. Maria Teresa Pedroza Primary Care Provider [phone] Dr. Maria Teresa Pedroza Referring Provider Honey Willis Attending Provider Unavailable Dr. Mukul Lunsford Attending Provider Dr. Elgin Orozco MD Primary Care Provider Rachel Dalton MD Attending Provider Brain Zeng BALANCE CLERK-CJulieta Attending Provider Dr. Rachel Dalton MD Attending Provider Rachel Dalton MD Referring Provider Dr. Mukul Main MD Attending Provider Dr. Maria Teresa Pedroza DO Referring Provider Dr. Elgin Orozco MD Primary Care Provider Rachel Dalton MD Attending Provider Unavailmitali Zeng BALANCE CLERK-CJulieta Attending Provider Dr. Elgin Orozco MD Primary Care Provider Rachel Dalton MD Attending Provider UnavailDr. Rachel Osborne MD Attending Provider Dr. Elgin Orozco MD Primary Care Provider Rachel Dalton MD Attending Provider UnavailRachel Osborne MD Referring Provider Unavaila marcin Zeng BALANCE CLERK-CJulieta Attending Provider Dr. Mukul Lunsford MD Attending Provider Pam, [facility] Primary Care Unavailable Cecil Knight Consulting Unavailable Cecil Knight Referring Unavailable Cecil Knight Admitting Unavailable Rivera Dodge Attending Unavailable Laureano Ross Consulting Unavailable Oleghe OLS, Efewongbe Attending Unavailabl e [facility], [facility] Unavailable [facility], [facility] Unavailable Oleghe, Efewongbe Attending Unavailable Oleghe OLS, Efewongbe Attending Unavailabl e Malys, Maria Teresa Primary Care Unavailable Oleghe OLS, Efewongbe Attending Unavailabl e Malys, Maria Teresa Primary Care Unavailable [place], [facility] Unavailable Oleghe OLS, Efewongbe Attending Unavailabl e Oleghe OLS, Efewongbe Referring Unavailabl e Oleghe OLS, Efewongbe Attending Unavailabl e Malys, Maria Teresa Primary Care Unavailable Oleghe OLS, Efewongbe Attending Unavailabl e Malys, Maria Teresa Primary Care Unavailable Oleghe OLS, Efewongbe Attending Unavailabl e Ranney, [facility] Primary Care Unavailable Oleghe OLS, Efewongbe Attending Unavailabl e Ranney, [facility] Primary Care Unavailable Oleghe OLS, Efewongbe Attending Unavailabl e Ranney, [facility] Primary Care Unavailable Oleghe OLS, Efewongbe Attending Unavailabl e Ranney, [facility] Primary Care Unavailable [facility], [facility] Primary Care Unavailable Oleghe OLS, Efewongbe Referring Unavailabl e Oleghe OLS, Efewongbe Attending Unavailabl e Ranney, [facility] Primary Care Unavailable Oleghe OLS, Efewongbe Attending Unavailabl e Ranney, [facility] Primary Care Unavailable Oleghe OLS, Efewongbe Attending Unavailabl e Ranney, [facility] Primary Care Unavailable Oleghe OLS, Efewongbe Attending Unavailabl e Oleghe OLS, Efewongbe Attending Unavailabl e Malys, Maria Teresa Primary Care Unavailable Julieta Gabriel Attending Unavailable Malys, Maria Teresa Primary Care Unavailable [facility], [facility] Primary [facility] Unavailable Oleghe OLS, Efewongbe Attending Unavailabl e Ranney, [facility] Primary Care Unavailable Oleghe OLS, Efewongbe Attending Unavailabl e Oleghe OLS, Efewongbe Attending Unavailabl e Ranney, [facility] Primary Care Unavailable Oleghe OLS, Efewongbe Attending Unavailabl e Malys, Maria Teresa Primary Care Unavailable [facility] Primary Care Unavailable [place] BALANCE CLERK, Julieta Attending Unavailable [facility] Primary Care Unavailable Isatu, [place] Attending Unavailable [place] BALANCE CLERK, Julieta Attending Unavailable [facility] Primary Care Unavailable Isatu, Mukul Attending Unavailable Malys, Maria Teresa Primary Care Unavailable MollisonKristian Attending Unavailable Malys, Maria Teresa Referring Unavailable Malys, Maria Teresa Primary Care Unavailable [place], [facility] Primary [facility] Unavailable [place] BALANCE CLERK, Julieta Attending Unavailable [place] BALANCE CLERK, Julieta Attending Unavailable Malys, Maria Teresa Primary Care Unavailable Isatu, Mukul Attending Unavailable Malys, Maria Teresa Primary Care Unavailable Mollison Kristian Attending Unavailable Malys, Maria Teresa Referring Unavailable Malys, Maria Teresa Primary Care Unavailable Oleghe, Efewongbe Attending Unavailable Malys, Maria Teresa Primary Care Unavailable [place], [facility] Primary Care Unavailable Oleghe, Efewongbe Attending Unavailable [facility] Primary Care Unavailable Cecil Knight Attending Unavailable Cecil Knight Referring Unavailable Cecil Knight Admitting Unavailable Cecil Knight Consulting Unavailable Oleghe, Efewongbe Attending Unavailable Malys, Maria Teresa Primary Care Unavailable [facility], [facility] Primary Care Unavailable [place] BALANCE CLERK, Julieta Attending Unavailable [place] BALANCE CLERK, Julieta Attending Unavailable [facility] Primary Care Unavailable Oleghe, Efewongbe Attending Unavailable [facility] Primary Care Unavailable Isatu, Mukul Attending Unavailable [facility] Primary Care Unavailable [facility] Primary Care Unavailable Isatu, [place] Attending Unavailable Malys, Maria Teresa Referring Unavailable Rivera Dodge Attending Unavailable Laureano Ross Consulting Unavailable Rivera Dodge Consulting Unavailable Laureano Ross Attending Unavailable [facility], [facility] Primary Care Unavailable Isatu, Mukul Attending Unavailable Malys, Maria Teresa Referring Unavailable Oleghe OLS, Efewongbe Referring Unavailabl e Oleghe OLS, Efewongbe Attending Unavailabl e Ranney, [facility] Primary Care Unavailable Oleghe OLS, Efewongbe Attending Unavailabl e Ranney, [facility] Primary Care Unavailable Caleb, Patrick Chi Attending Unavailable Caleb, Patrick Chi Referring Unavailable Malys, Maria Teresa Primary Care Unavailable Rachel Adams Attending Unavailabl e Malys, Maria Teresa Primary Care Unavailable Rachel Adams Attending Unavailabl e Malys, Maria Teresa Primary Care Unavailable Rachel Adams Attending Unavailabl e Malys, Maria Teresa Primary Care Unavailable Elgin Orozco Primary Care Unavailable Rachel Adams Attending Unavailabl e Medications Current Medications Medication Drug Class(es) Dates Sig (Normalized) Sig (Original) acetaminophen 500 mg oral tablet (10 sources) Start: 08-11-2024 take 2 tablets by mouth twice daily Acetaminophen 500 mg tablet Active 1000 mg PO TWICE A DAY August 11, 2024 1:00am Start: 03-12-2024 End: 05-09-2024 take 2 tablets by mouth every eight hours Acetaminophen 500 mg Tablet Discontinued 1000 mg PO EVERY 8 HOURS 0 March 12, 2024 12:00am May 09, 2024 10:54am lisinopril 20 mg oral tablet (5 sources) Angiotensin Converting Enzyme Inhibitor Start: 03-25-2024 take 1 tablet by mouth at bedtime Lisinopril 20 mg tablet Active 20 mg PO AT BEDTIME March 25, 2024 12:00am Ptwqhpsx-Agg-Wvyo-F a-Vit K-Lut (1 source) Start: 12-29-2020 Skehvxob-Lfz-A sourav- Fa-Vit K-Lut Active 1 EACH PO DAILY December 29, 2020 12:00am Trnuhmxj-Fpy-Iqgq-F a-Vit K-Lut 8 mg iron-400 mcg-50 mcg tablet (5 sources) Start: 02-19-2024 take 1 tablet by mouth once daily Fpbgqobg-Ecu-Jkgl- Fa-Vit K-Lut 8 mg iron-400 mcg-50 mcg tablet Active 1 {tbl} PO DAILY February 19, 2024 11:06am polyethylene glycol 3350 71329 mg powder for oral solution (5 sources) Osmotic Laxative Start: 10-17-2024 Polyethylene Glycol [...] aspirin 81 mg delayed release oral tablet (6 sources) Platelet Aggregation Inhibitor, Nonsteroidal Anti-inflammatory Drug [...] 2017 11:14am ciprofloxacin 250 mg oral tablet (5 sources) Quinolone Antimicrobial Start: 08-12-2024 End: 10-17-2024 take 1 tablet by mouth twice daily Ciprofloxacin Hcl (Cipro) 250 mg tablet Discontinued 250 mg PO TWICE A DAY 10 August 12, 2024 1:00am October 17, 2024 11:48am docusate sodium 100 mg oral capsule (6 sources) Start: 04-07-2017 End: 01-10-2018 take 1 capsule by mouth twice daily as needed for constipation Docusate Sodium 100 MG capsule Discontinued 100 mg PO TWICE DAILY NEEDED as needed for Constipation 60 April 07, 2017 12:00am January 10, 2018 10:24am oxyquinoline sulfate 0.41973 mg/mg / sodium dodecyl sulfate 0.0001 mg/mg vaginal gel (5 sources) Start: 02-24-2024 End: 03-12-2024 Oxyquinoline-Sod. Lauryl [...] 2020 2:49pm glimepiride 1 mg oral tablet (11 sources) Sulfonylurea Start: 02-19-2024 End: 05-09-2024 take 1 tablet by mouth once daily Glimepiride 1 mg tablet Discontinued 1 mg PO DAILY February 19, 2024 12:00am May 09, 2024 10:54am Start: 01-10-2018 End: 08-17-2023 take 1 tablet by mouth once daily Glimepiride 1 mg tablet Discontinued 1 mg PO DAILY January 10, 2018 12:00am August 17, 2023 12:02pm glyBURIDE 2.5 mg oral tablet (6 sources) Sulfonylurea Start: 04-07-2017 End: 01-10-2018 take 1.25 mg by mouth once daily Glyburide 2.5 MG tablet Discontinued 1.25 mg PO DAILY@0800 April 07, 2017 12:00am January 10, 2018 10:23am Start: 04-07-2017 End: 01-10-2018 take 1.25 mg by mouth once daily Glyburide Discontinued 1.25 MG PO DAILY@0800 April 07, 2017 12:00am January 10, 2018 10:23am ibuprofen 600 mg oral tablet (6 sources) Nonsteroidal Anti-inflammatory Drug Start: 04-07-2017 End: 05-07-2020 take 1 tablet by mouth three times daily as needed for pain Ibuprofen 600 MG tablet Discontinued 600 mg PO THREE TIMES A DAY as needed for Pain April 07, 2017 1:33pm May 07, 2020 9:58am Vwjhvfqv-Twn-Ttuq-F a-Vit K-Lut 1 EACH tablet (5 sources) Start: 12-29-2020 End: 02-19-2024 take 1 tablet by mouth once daily Enusvaat-Lgs-Ssbx -Fa-Vit K-Lut 1 EACH tablet Discontinued 1 NMA PO DAILY December 29, 2020 12:00am February 19, 2024 11:06am oxyCODONE hydrochloride 5 mg oral tablet (12 sources) Opioid Agonist Start: 04-07-2017 End: 01-10-2018 take 1 tablet by mouth every six hours as needed for pain Oxycodone 5 MG tablet Discontinued 5 mg PO EVERY 6 HOURS NEEDED as needed for Pain April 07, 2017 12:00am January 10, 2018 10:23am Start: 04-07-2017 End: 01-10-2018 take 5-10 mg by mouth every four hours as needed for pain Oxycodone 5 MG tablet Discontinued 5 - 10 mg PO EVERY 4 HOURS NEEDED as needed for Mod-Severe Pain (4-10/10) April 07, 2017 12:00am January 10, 2018 10:23am pantoprazole 40 mg delayed release oral tablet (6 sources) Proton Pump Inhibitor Start: 01-01-2021 End: [...] 2023 1:02pm sucralfate 1000 mg oral tablet (6 sources) Aluminum Complex Start: 01-01-2021 End: 08-10-2021 take 1 tablet by mouth 1 hour(s) before mealtime Sucralfate 1 GM tablet Discontinued 1 g PO ONE HOURS BEFORE MEALS & BED 90 January 01, 2021 12:00am August 10, 2021 4:46pm Problems Active Problems Problem Classification Problem Date Documented Date Episodic/Chronic Acute myocardial infarction (1 source) Subsequent non-ST elevation (NSTEMI) myocardial infarction; Translations: [Subsequent non-ST elevation (NSTEMI) myocardial infarction] Onset: 09-20-2024 Chronic Acute posthemorrhagic anemia (6 sources) Acute posthemorrhagic anemia; Translations: [Acute posthemorrhagic anemia] 08-10-2021 Episodic Cardiac dysrhythmias (16 sources) Ventricular tachycardia; Translations: [Ventricular tachycardia] Onset: 10-24-2024 05-06-2020 Chronic Cardiac dysrhythmias (6 sources) Sinus tachycardia; Translations: [Tachycardia, unspecified] 08-10-2021 Episodic Complication of device; implant or graft (11 sources) Thrombosis; Translations: [Thrombosis due to other internal prosthetic devices, implants and grafts, initial encounter] 11-11-2020 Episodic Comment on above: RV pacemaker lead Conduction disorders (20 sources) Past history of procedure; Translations: [Presence of automatic (implantable) cardiac defibrillator] Onset: 01-31-2013 03-20-2019 Chronic Congestive heart failure; nonhypertensive (18 sources) Chronic systolic heart failure; Translations: [Chronic systolic (congestive) heart failure] Onset: 09-20-2024 03-20-2019 Chronic Coronary atherosclerosis and other heart disease (11 sources) Coronary atherosclerosis; Translations: [Atherosclerotic heart disease of [place] coronary artery without angina pectoris] 12-29-2020 Chronic Diabetes mellitus without complication (6 sources) Diabetes mellitus; Translations: [Type 2 diabetes mellitus without complications] Onset: 05-09-2024 02-27-2024 Chronic Disorders of lipid metabolism (6 sources) Dyslipidemia; Translations: [Hyperlipidemia, unspecified] 01-01-2018 Chronic Essential hypertension (13 sources) Essential hypertension; Translations: [Essential (primary) hypertension] Onset: 02-07-2025 03-20-2019 Chronic Fluid and electrolyte disorders (6 sources) Lactic acidosis; Translations: [Lactic acidosis] 08-10-2021 Episodic Fracture of upper limb (14 sources) Unspecified fracture of upper end of left humerus, initial encounter for closed fracture; Translations: [Fracture of proximal end of left humerus] Onset: 05-08-2024 03-23-2024 Episodic Intracranial injury (5 sources) Concussion injury of body structure; Translations: [Concussion] 03-23-2024 Episodic Other aftercare (6 sources) Long-term current use of anticoagulant; Translations: [exterminator (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 of anticoagulants] 12-29-2020 Episodic Other connective tissue disease (2 sources) Muscle wasting and atrophy, not elsewhere classified, left lower leg; Translations: [Muscle wasting and atrophy, not elsewhere classified, left lower leg] Onset: 11-05-2024 Episodic Elli-; endo-; and myocarditis; cardiomyopathy (except that caused by tuberculosis or sexually transmitted disease) (17 sources) Cardiomyopathy; Translations: [Other cardiomyopathies] Onset: 10-24-2024 12-29-2020 Chronic Pulmonary heart disease (6 sources) Pulmonary arterial hypertension; Translations: [Secondary pulmonary arterial hypertension] 05-06-2020 Chronic Retinal detachments; defects; vascular occlusion; and retinopathy (5 sources) Degenerative disorder of macula ; Translations: [Unspecified macular degeneration] 02-27-2024 Chronic Septicemia (except in labor) (1 source) Sepsis, unspecified organism; Translations: [Sepsis, unspecified organism] Onset: 01-20-2025 Episodic Shock (6 sources) Hemorrhagic shock; Translations: [Other shock] 08-10-2021 Episodic Skull and face fractures (7 sources) Fractured nasal bones; Translations: [Fracture of nasal bones, initial encounter for closed fracture] Onset: 10-23-2024 03-23-2024 Episodic Superficial injury; contusion (5 sources) Injury of forehead; Translations: [Contusion of other part of head, initial encounter] 02-24-2024 Episodic Unclassified (2 sources) Concussion with loss of consciousness status unknown, subsequent encounter; Translations: [Concussion with loss of consciousness status unknown, subsequent encounter] Onset: 10-23-2024 Past or Other Problems Problem Classification Problem Date Documented Da te Episodic/Chronic Acute and unspecified renal failure (6 sources) Acute renal failure syndrome; Translations: [Acute kidney failure, unspecified] Onset: 5 08-20-2024 Episodic Gastrointestinal hemorrhage (6 sources) Upper gastrointestinal bleeding; Translations: [Gastrointestinal hemorrhage, unspecified] Onset: 1 08-10-2021 Episodic Malaise and fatigue (6 sources) Asthenia; Translations: [Other malaise] Onset: 5 [...] unspecified; Translations: [Disorientation, unspecified] Onset: 4 Episodic Urinary tract infections (6 sources) Pyelonephritis; Translations: [Tubulo-interstitial nephritis, not specified as acute or chronic] Onset: 4 08-20-2024 Episodic Results Test Name Value Interpretation Reference Range Facility Absolute lymphocyte countOrd ered By: Rachel Dalton on 02-18-2025 Lymphocytes Auto (Unsp spec) [#/Vol] 2.68 10*3/uL 0.83-4.51 [facility] Absolute neutrophil countOrd ered By: Rachel Dalton on 02-18-2025 Neutrophils (Bld) [#/Vol] 2.3 10*3/uL 2.0-7.7 [facility] Anion gap in Serum or Plasma Ordered By: Rachel Dalton on 02-18-2025 Anion gap [Moles/Vol] 10 mmol/L 5-15 [facility] Automated lymphocyte count a s percentage of total leukocytesOrdered By: Rachel Dalton on 02-18-2025 Lymphocytes/100 WBC Auto (Unsp spec) 47.7 % High 19-41 [facility] BUN/creatinine ratioOrdered By: Rachel Dalton on 02-18-2025 Urea nitrogen/Creatinine [Mass ratio] 22.8 mg/mg High 10-20 [facility] Basophil percentageOrdered B y: Rachel Dalton on 02-18-2025 Basophils/100 WBC (Bld) 0.5 % 0-1 [facility] Carbon dioxide, total [Moles /volume] in Central venous bloodOrdered By: Rachel Dalton on 02-18-2025 CO2 [Moles/Vol] 23.3 mmol/L 21.0-32.0 [facility] Chloride assayOrdered By: Chase Dalton on 02-18-2025 Chloride [Moles/Vol] 106 mmol/L 98-108 [facility] Eosinophil percentageOrdered By: Rachel Dalton on 02-18-2025 Eosinophils/100 WBC (Bld) 5.3 % High 0-5 [facility] Erythrocyte distribution wid th ratioOrdered By: Jamelsaginawdino Dalton on 02-18-2025 Erythrocyte distribution width (RBC) [Ratio] 12.6 % 11.6-14.6 [facility] Erythrocyte distribution wid th standard deviationOrdered By: Jamelsaginawdino Dalton on 02-18-2025 Erythrocyte distribution width (RBC) [Ratio] 42.3 fl 35.1-43.9 [facility] Glomerular filtration rate ( GFR) estimation/1.73 sq m using serum, plasma, or whole bOrdered By: Jamelsaginawdino Dalton on 02-18-2025 GFR/1.73 sq M.predicted among non-blacks MDRD (S/P/Bld) [Vol rate/Area] 68 mL/min/{1.73_m2} >60 [facility] Comment on above: mL/min/1.73m2 CKD-EP I Creatinine Equation (2020) Hematocrit Auto (Bld) [Volum e fraction]Ordered By: Rachel Dalton on 02-18-2025 Hematocrit (Bld) [Volume fraction] 33.6 % Low 37-47 [facility] Hemoglobin measurementOrdere d By: Rachel Dalton on 02-18-2025 Hemoglobin (Bld) [Mass/Vol] 11.0 g/dL Low 12.0-15.0 [facility] Immature granulocytes/100 WB C Auto (Bld)Ordered By: Rachel Dalton on 02-18-2025 Immature granulocytes/100 WBC (Bld) 0.200 % 0.0-0.9 [facility] Comment on above: IG% - Immature Granu locytes (promyelocytes, myelocytes and metamyelocytes) > 1% indicates that a LEFT SHIFT is Present. MCV (mean corpuscular volume ) determinationOrdered By: Rachel Dalton on 02-18-2025 MCV (RBC) [Entitic vol] 92.1 fL 81-99 [facility] Mean corpuscular hemoglobin (MCH) determinationOrdered By: Rachel Dalton on 02-18-2025 MCH (RBC) [Entitic mass] 30.1 pg 27.0-32.0 [facility] Mean corpuscular hemoglobin concentration (MCHC) determinationOrdered By: Rachel Dalton on 02-18-2025 MCHC (RBC) [Mass/Vol] 32.7 g/dL 32-36 [facility] Mean platelet volume determi nationOrdered By: Rachel Dalton on 02-18-2025 Platelet mean volume (Bld) [Entitic vol] 9.8 fL 6.2-12.0 [facility] Monocyte percentageOrdered B y: Rachel Dalton on 02-18-2025 Monocytes/100 WBC (Bld) 5.5 % 0-10 [facility] Neutrophil percentageOrdered By: Rachel Dalton on 02-18-2025 Neutrophils/100 WBC (Bld) 40.8 % Low 47-70 [facility] Nucleated red blood cell per centageOrdered By: Rachel Dalton on 02-18-2025 Nucleated RBC/100 WBC (Bld) [Ratio] 0 % 0-5 [facility] Platelet countOrdered By: Chase Dalton on 02-18-2025 Platelets (Bld) [#/Vol] 214 10*3/uL 150-450 [facility] Potassium measurement (mass/ volume)Ordered By: Rachel Dalton on 02-18-2025 Potassium (Unsp spec) [Mass/Vol] 4.6 mmol/L 3.3-5.1 [facility] RBC Auto (Bld) [#/Vol]Ordere d By: Rachel Dalton on 02-18-2025 RBC (Bld) [#/Vol] 3.65 10*6/uL Low 4.2-5.4 [facility] Serum creatinine measurement (mass/volume)Ordered By: Rachel Dalton on 02-18-2025 Creatinine [Mass/Vol] 0.82 mg/dL 0.70-1.20 [facility] Serum glucose measurement (m ass/volume)Ordered By: Rachel Dalton on 02-18-2025 Glucose [Mass/Vol] 120 mg/dL High 70-99 [facility] Serum or plasma calcium khoi urement (mass/volume)Ordered By: hCasejose miguel Scottlibiacharles on 02-18-2025 Calcium [Mass/Vol] 10.2 mg/dL 7.6-11.0 [facility] Serum or plasma urea nitroge n measurement (mass/volume)Ordered By: Rachel Scottlibiacharles on 02-18-2025 Urea nitrogen [Mass/Vol] 19 mg/dL 4-19 [facility] Sodium levelOrdered By: Jamel smith Tylerlibiacharles on 02-18-2025 Sodium [Moles/Vol] 140 mmol/L 133-145 [facility] White blood cell (WBC) count Ordered By: Rachel Dalton on 02-18-2025 WBC (Bld) [#/Vol] 5.6 10*3/uL 4.4-11.0 [facility] Absolute lymphocyte countOrd ered By: Rachel Dalton on 02-12-2025 Lymphocytes Auto (Unsp spec) [#/Vol] 2.90 10*3/uL 0.83-4.51 [facility] Absolute neutrophil countOrd ered By: Chasejose miguel Scottlibiacharles on 02-12-2025 Neutrophils (Bld) [#/Vol] 2.0 10*3/uL 2.0-7.7 [facility] Anion gap in Serum or Plasma Ordered By: Rcahel Dalton on 02-12-2025 Anion gap [Moles/Vol] 11 mmol/L 5-15 [facility] Automated lymphocyte count a s percentage of total leukocytesOrdered By: Rachel Dalton on 02-12-2025 Lymphocytes/100 WBC Auto (Unsp spec) 51.1 % High 19-41 [facility] BUN/creatinine ratioOrdered By: Chasejose miguel Scottlibiacharles on 02-12-2025 Urea nitrogen/Creatinine [Mass ratio] 27.5 mg/mg High 10-20 [facility] Basophil percentageOrdered B y: Rachel Dalton on 02-12-2025 Basophils/100 WBC (Bld) 0.5 % 0-1 [facility] Carbon dioxide, total [Moles /volume] in Central venous bloodOrdered By: Rachel Dalton on 02-12-2025 CO2 [Moles/Vol] 21.8 mmol/L 21.0-32.0 [facility] Chloride assayOrdered By: Chase Dalton on 02-12-2025 Chloride [Moles/Vol] 105 mmol/L 98-108 [facility] Eosinophil percentageOrdered By: Rachel Dalton on 02-12-2025 Eosinophils/100 WBC (Bld) 6.2 % High 0-5 [facility] Erythrocyte distribution wid th ratioOrdered By: jose miguel Dalton on 02-12-2025 Erythrocyte distribution width (RBC) [Ratio] 12.8 % 11.6-14.6 [facility] Erythrocyte distribution wid th standard deviationOrdered By: Jamelsaginawdino Dalton on 02-12-2025 Erythrocyte distribution width (RBC) [Ratio] 43.6 fl 35.1-43.9 [facility] Glomerular filtration rate ( GFR) estimation/1.73 sq m using serum, plasma, or whole bOrdered By: Rachel Datlon on 02-12-2025 GFR/1.73 sq M.predicted among non-blacks MDRD (S/P/Bld) [Vol rate/Area] 67 mL/min/{1.73_m2} >60 [facility] Comment on above: mL/min/1.73m2 CKD-EP I Creatinine Equation (2020) Hematocrit Auto (Bld) [Volum e fraction]Ordered By: Rachel Dalton on 02-12-2025 Hematocrit (Bld) [Volume fraction] 33.6 % Low 37-47 [facility] Hemoglobin measurementOrdere d By: Rachel Dalton on 02-12-2025 Hemoglobin (Bld) [Mass/Vol] 11.2 g/dL Low 12.0-15.0 [facility] Immature granulocytes/100 WB C Auto (Bld)Ordered By: Rachel Dalton on 02-12-2025 Immature granulocytes/100 WBC (Bld) 0.400 % 0.0-0.9 [facility] Comment on above: IG% - Immature Granu locytes (promyelocytes, myelocytes and metamyelocytes) > 1% indicates that a LEFT SHIFT is Present. MCV (mean corpuscular volume ) determinationOrdered By: Rachel Dalton on 02-12-2025 MCV (RBC) [Entitic vol] 92.6 fL 81-99 [facility] Mean corpuscular hemoglobin (MCH) determinationOrdered By: jose miguel Dalton on 02-12-2025 MCH (RBC) [Entitic mass] 30.9 pg 27.0-32.0 [facility] Mean corpuscular hemoglobin concentration (MCHC) determinationOrdered By: eansaginawdino Dalton on 02-12-2025 MCHC (RBC) [Mass/Vol] 33.3 g/dL 32-36 [facility] Mean platelet volume determi nationOrdered By: Rachel Dalton on 02-12-2025 Platelet mean volume (Bld) [Entitic vol] 10.5 fL 6.2-12.0 [facility] Monocyte percentageOrdered B y: Rachel Dalton on 02-12-2025 Monocytes/100 WBC (Bld) 6.7 % 0-10 [facility] Neutrophil percentageOrdered By: [facility] Scottcharles on 02-12-2025 Neutrophils/100 WBC (Bld) 35.1 % Low 47-70 [facility] Nucleated red blood cell per centageOrdered By: eansaginawdino Dalton on 02-12-2025 Nucleated RBC/100 WBC (Bld) [Ratio] 0 % 0-5 [facility] Platelet countOrdered By: Chase eanluis Dalton on 02-12-2025 Platelets (Bld) [#/Vol] 208 10*3/uL 150-450 [facility] Potassium measurement (mass/ volume)Ordered By: Rachel Dalton on 02-12-2025 Potassium (Unsp spec) [Mass/Vol] 4.3 mmol/L 3.3-5.1 [facility] RBC Auto (Bld) [#/Vol]Ordere d By: Rachel Dalton on 02-12-2025 RBC (Bld) [#/Vol] 3.63 10*6/uL Low 4.2-5.4 [facility] Serum creatinine measurement (mass/volume)Ordered By: Rachel Dalton on 02-12-2025 Creatinine [Mass/Vol] 0.84 mg/dL 0.70-1.20 [facility] Serum glucose measurement (m ass/volume)Ordered By: Rachel Dalton on 02-12-2025 Glucose [Mass/Vol] 113 mg/dL High 70-99 [facility] Serum or plasma calcium khoi urement (mass/volume)Ordered By: Rachel Dalton on 02-12-2025 Calcium [Mass/Vol] 10.0 mg/dL 7.6-11.0 [facility] Serum or plasma urea nitroge n measurement (mass/volume)Ordered By: Rachel Dalton on 02-12-2025 Urea nitrogen [Mass/Vol] 23 mg/dL High 4-19 [facility] Sodium levelOrdered By: Jamel smith Sha on 02-12-2025 Sodium [Moles/Vol] 138 mmol/L 133-145 [facility] White blood cell (WBC) count Ordered By: Rachel Dalton on 02-12-2025 WBC (Bld) [#/Vol] 5.7 10*3/uL 4.4-11.0 [facility] Absolute lymphocyte countOrd ered By: Rachel Dalton on 01-21-2025 Lymphocytes Auto (Unsp spec) [#/Vol] 2.66 10*3/uL 0.83-4.51 [facility] Absolute neutrophil countOrd ered By: Rachel Scottlibiacharles on 01-21-2025 Neutrophils (Bld) [#/Vol] 3.3 10*3/uL 2.0-7.7 [facility] Anion gap in Serum or Plasma Ordered By: Rachel Scottlibiacharles on 01-21-2025 Anion gap [Moles/Vol] 9 mmol/L 5-15 [facility] Automated lymphocyte count a s percentage of total leukocytesOrdered By: Rachel Dalton on 01-21-2025 Lymphocytes/100 WBC Auto (Unsp spec) 39.7 % 19-41 [facility] BUN/creatinine ratioOrdered By: Rachel Dalton on 01-21-2025 Urea nitrogen/Creatinine [Mass ratio] 27.8 mg/mg High 10-20 [facility] Basophil percentageOrdered B y: Rachel Dalton on 01-21-2025 Basophils/100 WBC (Bld) 0.6 % 0-1 [facility] Carbon dioxide, total [Moles /volume] in Central venous bloodOrdered By: Rachel Dalton on 01-21-2025 CO2 [Moles/Vol] 23.8 mmol/L 21.0-32.0 [facility] Chloride assayOrdered By: Chase Dalton on 01-21-2025 Chloride [Moles/Vol] 107 mmol/L 98-108 [facility] Eosinophil percentageOrdered By: Rachel Dalton on 01-21-2025 Eosinophils/100 WBC (Bld) 3.4 % 0-5 [facility] Erythrocyte distribution wid th ratioOrdered By: Rachel Dalton on 01-21-2025 Erythrocyte distribution width (RBC) [Ratio] 12.9 % 11.6-14.6 [facility] Erythrocyte distribution wid th standard deviationOrdered By: Rachel Dalton on 01-21-2025 Erythrocyte distribution width (RBC) [Ratio] 43.7 fl 35.1-43.9 [facility] Glomerular filtration rate ( GFR) estimation/1.73 sq m using serum, plasma, or whole bOrdered By: Rachel Dalton on 01-21-2025 GFR/1.73 sq M.predicted among non-blacks MDRD (S/P/Bld) [Vol rate/Area] 71 mL/min/{1.73_m2} >60 [facility] Comment on above: mL/min/1.73m2 CKD-EP I Creatinine Equation (2020) Hematocrit Auto (Bld) [Volum e fraction]Ordered By: Rachel Dalton on 01-21-2025 Hematocrit (Bld) [Volume fraction] 35.1 % Low 37-47 [facility] Hemoglobin measurementOrdere d By: Rachel Dalton on 01-21-2025 Hemoglobin (Bld) [Mass/Vol] 11.5 g/dL Low 12.0-15.0 [facility] Immature granulocytes/100 WB C Auto (Bld)Ordered By: Rachel Dalton on 01-21-2025 Immature granulocytes/100 WBC (Bld) 0.400 % 0.0-0.9 [facility] Comment on above: IG% - Immature Granu locytes (promyelocytes, myelocytes and metamyelocytes) > 1% indicates that a LEFT SHIFT is Present. MCV (mean corpuscular volume ) determinationOrdered By: Rachel Dalton on 01-21-2025 MCV (RBC) [Entitic vol] 92.6 fL 81-99 [facility] Mean corpuscular hemoglobin (MCH) determinationOrdered By: Rachel Dalton on 01-21-2025 MCH (RBC) [Entitic mass] 30.3 pg 27.0-32.0 [facility] Mean corpuscular hemoglobin concentration (MCHC) determinationOrdered By: Rachel Dalton on 01-21-2025 MCHC (RBC) [Mass/Vol] 32.8 g/dL 32-36 [facility] Mean platelet volume determi nationOrdered By: Rachel Dalton on 01-21-2025 Platelet mean volume (Bld) [Entitic vol] 10.4 fL 6.2-12.0 [facility] Monocyte percentageOrdered B y: Rachel Dalton on 01-21-2025 Monocytes/100 WBC (Bld) 6.0 % 0-10 [facility] Neutrophil percentageOrdered By: Rachel Dalton on 01-21-2025 Neutrophils/100 WBC (Bld) 49.9 % 47-70 [facility] Nucleated red blood cell per centageOrdered By: Rachel Dalton on 01-21-2025 Nucleated RBC/100 WBC (Bld) [Ratio] 0 % 0-5 [facility] Platelet countOrdered By: Chase Dalton on 01-21-2025 Platelets (Bld) [#/Vol] 203 10*3/uL 150-450 [facility] Potassium measurement (mass/ volume)Ordered By: Rachel Dalton on 01-21-2025 Potassium (Unsp spec) [Mass/Vol] 4.3 mmol/L 3.3-5.1 [facility] RBC Auto (Bld) [#/Vol]Ordere d By: Jamelkatarzynadino Dalton on 01-21-2025 RBC (Bld) [#/Vol] 3.79 10*6/uL Low 4.2-5.4 [facility] Serum creatinine measurement (mass/volume)Ordered By: Rachel Dalton on 01-21-2025 Creatinine [Mass/Vol] 0.79 mg/dL 0.70-1.20 [facility] Serum glucose measurement (m ass/volume)Ordered By: Rachel Dalton on 01-21-2025 Glucose [Mass/Vol] 131 mg/dL High 70-99 [facility] Serum or plasma calcium khoi urement (mass/volume)Ordered By: Rachel Dalton on 01-21-2025 Calcium [Mass/Vol] 10.2 mg/dL 7.6-11.0 [facility] Serum or plasma urea nitroge n measurement (mass/volume)Ordered By: Rachel Dalton on 01-21-2025 Urea nitrogen [Mass/Vol] 22 mg/dL High 4-19 [facility] Sodium levelOrdered By: Jamel luis Sha on 01-21-2025 Sodium [Moles/Vol] 139 mmol/L 133-145 [facility] White blood cell (WBC) count Ordered By: Rachel Dalton on 01-21-2025 WBC (Bld) [#/Vol] 6.7 10*3/uL 4.4-11.0 [facility] Absolute lymphocyte countOrd ered By: Rachel Dalton on 01-15-2025 Lymphocytes Auto (Unsp spec) [#/Vol] 2.95 10*3/uL 0.83-4.51 [facility] Absolute neutrophil countOrd ered By: Rachel Dalton on 01-15-2025 Neutrophils (Bld) [#/Vol] 2.5 10*3/uL 2.0-7.7 [facility] Anion gap in Serum or Plasma Ordered By: Rachel Dalton on 01-15-2025 Anion gap [Moles/Vol] 9 mmol/L 5-15 [facility] Automated lymphocyte count a s percentage of total leukocytesOrdered By: Rachel Dalton on 01-15-2025 Lymphocytes/100 WBC Auto (Unsp spec) 49.4 % High 19-41 [facility] BUN/creatinine ratioOrdered By: Rachel Dalton on 01-15-2025 Urea nitrogen/Creatinine [Mass ratio] 22.4 mg/mg High 10-20 [facility] Basophil percentageOrdered B y: Rachel Dalton on 01-15-2025 Basophils/100 WBC (Bld) 0.5 % 0-1 [facility] Carbon dioxide, total [Moles /volume] in Central venous bloodOrdered By: Rachel Dalton on 01-15-2025 CO2 [Moles/Vol] 24.5 mmol/L 21.0-32.0 [facility] Chloride assayOrdered By: Chase Dalton on 01-15-2025 Chloride [Moles/Vol] 106 mmol/L 98-108 [facility] Eosinophil percentageOrdered By: Rachel Dalton on 01-15-2025 Eosinophils/100 WBC (Bld) 3.7 % 0-5 [facility] Erythrocyte distribution wid th ratioOrdered By: Rachel Dalton on 01-15-2025 Erythrocyte distribution width (RBC) [Ratio] 12.5 % 11.6-14.6 [facility] Erythrocyte distribution wid th standard deviationOrdered By: Rachel Dalton on 01-15-2025 Erythrocyte distribution width (RBC) [Ratio] 41.5 fl 35.1-43.9 [facility] Glomerular filtration rate ( GFR) estimation/1.73 sq m using serum, plasma, or whole bOrdered By: Rachel Dalton on 01-15-2025 GFR/1.73 sq M.predicted among non-blacks MDRD (S/P/Bld) [Vol rate/Area] 69 mL/min/{1.73_m2} >60 [facility] Comment on above: mL/min/1.73m2 CKD-EP I Creatinine Equation (2020) Hematocrit Auto (Bld) [Volum e fraction]Ordered By: Rachel Dalton on 01-15-2025 Hematocrit (Bld) [Volume fraction] 34.7 % Low 37-47 [facility] Hemoglobin measurementOrdere d By: Rachel Dalton on 01-15-2025 Hemoglobin (Bld) [Mass/Vol] 11.3 g/dL Low 12.0-15.0 [facility] Immature granulocytes/100 WB C Auto (Bld)Ordered By: Rachel Dalton on 01-15-2025 Immature granulocytes/100 WBC (Bld) 0.300 % 0.0-0.9 [facility] Comment on above: IG% - Immature Granu locytes (promyelocytes, myelocytes and metamyelocytes) > 1% indicates that a LEFT SHIFT is Present. MCV (mean corpuscular volume ) determinationOrdered By: Rachel Dalton on 01-15-2025 MCV (RBC) [Entitic vol] 91.3 fL 81-99 [facility] Mean corpuscular hemoglobin (MCH) determinationOrdered By: eansaginawdino Dalton on 01-15-2025 MCH (RBC) [Entitic mass] 29.7 pg 27.0-32.0 [facility] Mean corpuscular hemoglobin concentration (MCHC) determinationOrdered By: jose miguel Dalton on 01-15-2025 MCHC (RBC) [Mass/Vol] 32.6 g/dL 32-36 [facility] Mean platelet volume determi nationOrdered By: Rachel Dalton on 01-15-2025 Platelet mean volume (Bld) [Entitic vol] 9.4 fL 6.2-12.0 [facility] Monocyte percentageOrdered B y: Rachel Dalton on 01-15-2025 Monocytes/100 WBC (Bld) 5.0 % 0-10 [facility] Neutrophil percentageOrdered By: eansaginawdino Dalton on 01-15-2025 Neutrophils/100 WBC (Bld) 41.1 % Low 47-70 [facility] Nucleated red blood cell per centageOrdered By: jose miguel Dalton on 01-15-2025 Nucleated RBC/100 WBC (Bld) [Ratio] 0 % 0-5 [facility] Platelet countOrdered By: Chase lesleydino Dalton on 01-15-2025 Platelets (Bld) [#/Vol] 246 10*3/uL 150-450 [facility] Potassium measurement (mass/ volume)Ordered By: Rachel Dalton on 01-15-2025 Potassium (Unsp spec) [Mass/Vol] 4.4 mmol/L 3.3-5.1 [facility] RBC Auto (Bld) [#/Vol]Ordere d By: Jamelkatarzynadino Dalton on 01-15-2025 RBC (Bld) [#/Vol] 3.80 10*6/uL Low 4.2-5.4 [facility] Serum creatinine measurement (mass/volume)Ordered By: Rachel Dalton on 01-15-2025 Creatinine [Mass/Vol] 0.81 mg/dL 0.70-1.20 [facility] Serum glucose measurement (m ass/volume)Ordered By: Rachel Dalton on 01-15-2025 Glucose [Mass/Vol] 135 mg/dL High 70-99 [facility] Serum or plasma calcium khoi urement (mass/volume)Ordered By: Rachel Scottlibiacharles on 01-15-2025 Calcium [Mass/Vol] 10.1 mg/dL 7.6-11.0 [facility] Serum or plasma urea nitroge n measurement (mass/volume)Ordered By: Rachel Dalton on 01-15-2025 Urea nitrogen [Mass/Vol] 18 mg/dL 4-19 [facility] Sodium levelOrdered By: Jamel smith Tylerlibiacharles on 01-15-2025 Sodium [Moles/Vol] 139 mmol/L 133-145 [facility] White blood cell (WBC) count Ordered By: Rachel Dalton on 01-15-2025 WBC (Bld) [#/Vol] 6.0 10*3/uL 4.4-11.0 [facility] Absolute lymphocyte countOrd ered By: Rachel Dalton on 12-17-2024 Lymphocytes Auto (Unsp spec) [#/Vol] 2.56 10*3/uL 0.83-4.51 [facility] Absolute neutrophil countOrd ered By: Rachel Dalton on 12-17-2024 Neutrophils (Bld) [#/Vol] 1.8 10*3/uL Low 2.0-7.7 [facility] Anion gap in Serum or Plasma Ordered By: Rachel Dalton on 12-17-2024 Anion gap [Moles/Vol] 11 mmol/L 5-15 [facility] Automated lymphocyte count a s percentage of total leukocytesOrdered By: Rachel Dalton on 12-17-2024 Lymphocytes/100 WBC Auto (Unsp spec) 52.0 % High 19-41 [facility] BUN/creatinine ratioOrdered By: Rachel Daltno on 12-17-2024 Urea nitrogen/Creatinine [Mass ratio] 21.0 mg/mg High 10-20 [facility] Basophil percentageOrdered B y: Rachel Dalton on 12-17-2024 Basophils/100 WBC (Bld) 0.6 % 0-1 [facility] Carbon dioxide, total [Moles /volume] in Central venous bloodOrdered By: Rachel Dalton on 12-17-2024 CO2 [Moles/Vol] 22.0 mmol/L 21.0-32.0 [facility] Chloride assayOrdered By: Chase Dalton on 12-17-2024 Chloride [Moles/Vol] 106 mmol/L 98-108 [facility] Eosinophil percentageOrdered By: Rachel Datlon on 12-17-2024 Eosinophils/100 WBC (Bld) 4.5 % 0-5 [facility] Erythrocyte distribution wid th (RBC) [Ratio]Ordered By: Rachel Dalton on 12-17-2024 Erythrocyte distribution width (RBC) [Entitic vol] 41.5 fL 35.1-43.9 [facility] Erythrocyte distribution wid th ratioOrdered By: Rachel Dalton on 12-17-2024 Erythrocyte distribution width (RBC) [Ratio] 12.6 % 11.6-14.6 [facility] Erythrocyte distribution wid th standard deviationOrdered By: Rachel Dalton on 12-17-2024 Erythrocyte distribution width (RBC) [Ratio] 41.5 fl 35.1-43.9 [facility] GFR/1.73 sq M.predicted brady g non-blacks MDRD (S/P/Bld) [Vol rate/Area]Ordered By: Rachel Dalton on 12-17-2024 Estimated GFR (MDRD) Non-Af Amer 73 >60 [facility] Comment on above: mL/min/1.73m2 CKD-EP I Creatinine Equation (2020) Glomerular filtration rate ( GFR) estimation/1.73 sq m using serum, plasma, or whole bOrdered By: Rachel Dalton on 12-17-2024 GFR/1.73 sq M.predicted among non-blacks MDRD (S/P/Bld) [Vol rate/Area] 73 mL/min/{1.73_m2} >60 [facility] Comment on above: mL/min/1.73m2 CKD-EP I Creatinine Equation (2020) Hematocrit Auto (Bld) [Volum e fraction]Ordered By: Rachel Dalton on 12-17-2024 Hematocrit (Bld) [Volume fraction] 35.6 % Low 37-47 [facility] Hemoglobin measurementOrdere d By: Rachel Dalton on 12-17-2024 Hemoglobin (Bld) [Mass/Vol] 11.9 g/dL Low 12.0-15.0 [facility] Immature granulocytes/100 WB C Auto (Bld)Ordered By: Rachel Dalton on 12-17-2024 Immature granulocytes/100 WBC (Bld) 0.400 % 0.0-0.9 [facility] Comment on above: IG% - Immature Granu locytes (promyelocytes, myelocytes and metamyelocytes) > 1% indicates that a LEFT SHIFT is Present. Lymphocytes Auto (Unsp spec) [#/Vol]Ordered By: Rachel Dalton on 12-17-2024 Lymphocytes (Bld) [#/Vol] 2.56 10*3/uL 0.83-4.5 1 [facility] Lymphocytes/100 WBC Auto (Un sp spec)Ordered By: Rachel Dalton on 12-17-2024 Lymphocytes/100 WBC (Bld) 52.0 % High 19-41 [facility] MCV (mean corpuscular volume ) determinationOrdered By: Rahcel Dalton on 12-17-2024 MCV (RBC) [Entitic vol] 91.3 fL 81-99 [facility] Mean corpuscular hemoglobin (MCH) determinationOrdered By: Rachel Dalton on 12-17-2024 MCH (RBC) [Entitic mass] 30.5 pg 27.0-32.0 [facility] Mean corpuscular hemoglobin concentration (MCHC) determinationOrdered By: Rachel Dalton on 12-17-2024 MCHC (RBC) [Mass/Vol] 33.4 g/dL 32-36 [facility] Mean platelet volume determi nationOrdered By: Rachel Dalton on 12-17-2024 Platelet mean volume (Bld) [Entitic vol] 10.5 fL 6.2-12.0 [facility] Monocyte percentageOrdered B y: Rachel Dalton on 12-17-2024 Monocytes/100 WBC (Bld) 6.9 % 0-10 [facility] Neutrophil percentageOrdered By: Rachel Dalton on 12-17-2024 Neutrophils/100 WBC (Bld) 35.6 % Low 47-70 [facility] Nucleated red blood cell per centageOrdered By: Rachel Dalton on 12-17-2024 Nucleated RBC/100 WBC (Bld) [Ratio] 0 % 0-5 [facility] Platelet countOrdered By: Chase Dalton on 12-17-2024 Platelets (Bld) [#/Vol] 184 10*3/uL 150-450 [facility] Potassium (Unsp spec) [Mass/ Vol]Ordered By: Rachel Dalton on 12-17-2024 Potassium [Moles/Vol] 4.7 mmol/L 3.3-5.1 [facility] Potassium measurement (mass/ volume)Ordered By: Rachel Dalton on 12-17-2024 Potassium (Unsp spec) [Mass/Vol] 4.7 mmol/L 3.3-5.1 [facility] RBC Auto (Bld) [#/Vol]Ordere d By: Rachel Dalton on 12-17-2024 RBC (Bld) [#/Vol] 3.90 10*6/uL Low 4.2-5.4 [facility] Serum creatinine measurement (mass/volume)Ordered By: Rachel Dalton on 12-17-2024 Creatinine [Mass/Vol] 0.78 mg/dL 0.70-1.20 [facility] Serum glucose measurement (m ass/volume)Ordered By: Rachel Dalton on 12-17-2024 Glucose [Mass/Vol] 125 mg/dL High 70-99 [facility] Serum or plasma calcium khoi urement (mass/volume)Ordered By: Rachel Dalton on 12-17-2024 Calcium [Mass/Vol] 10.1 mg/dL 7.6-11.0 [facility] Serum or plasma urea nitroge n measurement (mass/volume)Ordered By: Rachel Dalton on 12-17-2024 Urea nitrogen [Mass/Vol] 16 mg/dL 4-19 [facility] Sodium levelOrdered By: Jamel acevedophoebe Sha on 12-17-2024 Sodium [Moles/Vol] 139 mmol/L 133-145 [facility] White blood cell (WBC) count Ordered By: Rachel Dalton on 12-17-2024 WBC (Bld) [#/Vol] 4.9 10*3/uL 4.4-11.0 [facility] Absolute lymphocyte countOrd ered By: Rachel Dalton on 12-11-2024 Lymphocytes Auto (Unsp spec) [#/Vol] 2.70 10*3/uL 0.83-4.51 [facility] Absolute neutrophil countOrd ered By: Rachel Dalton on 12-11-2024 Neutrophils (Bld) [#/Vol] 2.9 10*3/uL 2.0-7.7 [facility] Anion gap in Serum or Plasma Ordered By: Rachel Dalton on 12-11-2024 Anion gap [Moles/Vol] 10 mmol/L 5-15 [facility] Automated lymphocyte count a s percentage of total leukocytesOrdered By: Rachel Dalton on 12-11-2024 Lymphocytes/100 WBC Auto (Unsp spec) 42.8 % High 19-41 [facility] BUN/creatinine ratioOrdered By: Rachel Dalton on 12-11-2024 Urea nitrogen/Creatinine [Mass ratio] 22.1 mg/mg High 10-20 [facility] Basophil percentageOrdered B y: Rachel Dalton on 12-11-2024 Basophils/100 WBC (Bld) 0.5 % 0-1 [facility] Carbon dioxide, total [Moles /volume] in Central venous bloodOrdered By: Rachel Dalton on 12-11-2024 CO2 [Moles/Vol] 23.2 mmol/L 21.0-32.0 [facility] Chloride assayOrdered By: eansaginawdino Dalton on 12-11-2024 Chloride [Moles/Vol] 107 mmol/L 98-108 [facility] Eosinophil percentageOrdered By: Rachel Dalton on 12-11-2024 Eosinophils/100 WBC (Bld) 4.3 % 0-5 [facility] Erythrocyte distribution wid th (RBC) [Ratio]Ordered By: eansaginawdino Dalton on 12-11-2024 Erythrocyte distribution width (RBC) [Entitic vol] 41.4 fL 35.1-43.9 [facility] Erythrocyte distribution wid th ratioOrdered By: [facility] on 12-11-2024 Erythrocyte distribution width (RBC) [Ratio] 12.7 % 11.6-14.6 [facility] Erythrocyte distribution wid th standard deviationOrdered By: Rachel Dalton on 12-11-2024 Erythrocyte distribution width (RBC) [Ratio] 41.4 fl 35.1-43.9 [facility] GFR/1.73 sq M.predicted brady g non-blacks MDRD (S/P/Bld) [Vol rate/Area]Ordered By: Rachel Dalton on 12-11-2024 Estimated GFR (MDRD) Non-Af Amer 55 Low >60 [facility] Comment on above: mL/min/1.73m2 CKD-EP I Creatinine Equation (2020) Glomerular filtration rate ( GFR) estimation/1.73 sq m using serum, plasma, or whole bOrdered By: Rachel Dalton on 12-11-2024 GFR/1.73 sq M.predicted among non-blacks MDRD (S/P/Bld) [Vol rate/Area] 55 mL/min/{1.73_m2} Low >60 [facility] Comment on above: mL/min/1.73m2 CKD-EP I Creatinine Equation (2020) Hematocrit Auto (Bld) [Volum e fraction]Ordered By: Rachel Dalton on 12-11-2024 Hematocrit (Bld) [Volume fraction] 36.2 % Low 37-47 [facility] Hemoglobin A1c percentageOrd ered By: Rachel Dalton on 12-11-2024 HbA1c (Bld) [Mass fraction] 6.8 % >5.7 [facility] Hemoglobin measurementOrdere d By: Rachel Dalton on 12-11-2024 Hemoglobin (Bld) [Mass/Vol] 12.3 g/dL 12.0-15.0 [facility] Immature granulocytes/100 WB C Auto (Bld)Ordered By: eansaginawdino Dalton on 12-11-2024 Immature granulocytes/100 WBC (Bld) 0.200 % 0.0-0.9 [facility] Comment on above: IG% - Immature Granu locytes (promyelocytes, myelocytes and metamyelocytes) > 1% indicates that a LEFT SHIFT is Present. Lymphocytes Auto (Unsp spec) [#/Vol]Ordered By: Rachel Dalton on 12-11-2024 Lymphocytes (Bld) [#/Vol] 2.70 10*3/uL 0.83-4.5 1 [facility] Lymphocytes/100 WBC Auto (Un sp spec)Ordered By: Rachel Dalton on 12-11-2024 Lymphocytes/100 WBC (Bld) 42.8 % High 19-41 [facility] MCV (mean corpuscular volume ) determinationOrdered By: Rachel Dalton on 12-11-2024 MCV (RBC) [Entitic vol] 89.8 fL 81-99 [facility] Mean corpuscular hemoglobin (MCH) determinationOrdered By: Rachel Dalton on 12-11-2024 MCH (RBC) [Entitic mass] 30.5 pg 27.0-32.0 [facility] Mean corpuscular hemoglobin concentration (MCHC) determinationOrdered By: Rachel Dalton on 12-11-2024 MCHC (RBC) [Mass/Vol] 34.0 g/dL 32-36 [facility] Mean platelet volume determi nationOrdered By: Rachel Dalton on 12-11-2024 Platelet mean volume (Bld) [Entitic vol] 10.7 fL 6.2-12.0 [facility] Monocyte percentageOrdered B y: Rachel Dalton on 12-11-2024 Monocytes/100 WBC (Bld) 6.2 % 0-10 [facility] Neutrophil percentageOrdered By: Rachel Dalton on 12-11-2024 Neutrophils/100 WBC (Bld) 46.0 % Low 47-70 [facility] Nucleated red blood cell per centageOrdered By: Rachel Dalton on 12-11-2024 Nucleated RBC/100 WBC (Bld) [Ratio] 0 % 0-5 [facility] Platelet countOrdered By: Chase Dalton on 12-11-2024 Platelets (Bld) [#/Vol] 152 10*3/uL 150-450 [facility] Potassium (Unsp spec) [Mass/ Vol]Ordered By: Rachel Dalton on 12-11-2024 Potassium [Moles/Vol] 4.6 mmol/L 3.3-5.1 [facility] Potassium measurement (mass/ volume)Ordered By: Rachel Dalton on 12-11-2024 Potassium (Unsp spec) [Mass/Vol] 4.6 mmol/L 3.3-5.1 [facility] RBC Auto (Bld) [#/Vol]Ordere d By: Rachel Dalton on 12-11-2024 RBC (Bld) [#/Vol] 4.03 10*6/uL Low 4.2-5.4 [facility] Serum creatinine measurement (mass/volume)Ordered By: Rachel Dalton on 12-11-2024 Creatinine [Mass/Vol] 0.98 mg/dL 0.70-1.20 [facility] Serum glucose measurement (m ass/volume)Ordered By: Rachel Dalton on 12-11-2024 Glucose [Mass/Vol] 126 mg/dL High 70-99 [facility] Serum or plasma calcium khoi urement (mass/volume)Ordered By: Rachel Dalton on 12-11-2024 Calcium [Mass/Vol] 10.2 mg/dL 7.6-11.0 [facility] Serum or plasma urea nitroge n measurement (mass/volume)Ordered By: Rachel Dalton on 12-11-2024 Urea nitrogen [Mass/Vol] 22 mg/dL High 4-19 [facility] Sodium levelOrdered By: Jamel acevedomeredithcharles Dalton on 12-11-2024 Sodium [Moles/Vol] 139 mmol/L 133-145 [facility] TSH DL <= 0.005 mIU/L QnOrde red By: Rachel Dalton on 12-11-2024 Thyroid Stimulating Hormone (TSH) 1.280 uIU/mL 0.300-4.200 [facility] TSH Qn 1.280 uIU/mL 0.300-4.200 [facility] White blood cell (WBC) count Ordered By: Rachel Dalton on 12-11-2024 WBC (Bld) [#/Vol] 6.3 10*3/uL 4.4-11.0 [facility] Absolute lymphocyte countOrd ered By: Rachel Dalton on 11-19-2024 Lymphocytes Auto (Unsp spec) [#/Vol] 3.02 10*3/uL 0.83-4.51 [facility] Absolute neutrophil countOrd ered By: Rachel Dalton on 11-19-2024 Neutrophils (Bld) [#/Vol] 1.9 10*3/uL Low 2.0-7.7 [facility] Anion gap in Serum or Plasma Ordered By: Rachel Dalton on 11-19-2024 Anion gap [Moles/Vol] 11 mmol/L 5-15 [facility] Automated lymphocyte count a s percentage of total leukocytesOrdered By: Rachel Dalton on 11-19-2024 Lymphocytes/100 WBC Auto (Unsp spec) 54.0 % High 19-41 [facility] BUN/creatinine ratioOrdered By: Rachel Dalton on 11-19-2024 Urea nitrogen/Creatinine [Mass ratio] 22.5 mg/mg High 10-20 [facility] Basophil percentageOrdered B y: Rachel Dalton on 11-19-2024 Basophils/100 WBC (Bld) 0.5 % 0-1 [facility] Carbon dioxide, total [Moles /volume] in Central venous bloodOrdered By: Rachel Dalton on 11-19-2024 CO2 [Moles/Vol] 21.7 mmol/L 21.0-32.0 [facility] Chloride assayOrdered By: Chase eanluis Dalton on 11-19-2024 Chloride [Moles/Vol] 106 mmol/L 98-108 [facility] Eosinophil percentageOrdered By: Rachel Dalton on 11-19-2024 Eosinophils/100 WBC (Bld) 6.3 % High 0-5 [facility] Erythrocyte distribution wid th (RBC) [Ratio]Ordered By: Rachel Dalton on 11-19-2024 Erythrocyte distribution width (RBC) [Entitic vol] 43.2 fL 35.1-43.9 [facility] Erythrocyte distribution wid th ratioOrdered By: Rachel Dalton on 11-19-2024 Erythrocyte distribution width (RBC) [Ratio] 13.1 % 11.6-14.6 [facility] Erythrocyte distribution wid th standard deviationOrdered By: Rachel Dalton on 11-19-2024 Erythrocyte distribution width (RBC) [Ratio] 43.2 fl 35.1-43.9 [facility] GFR/1.73 sq M.predicted brady g non-blacks MDRD (S/P/Bld) [Vol rate/Area]Ordered By: Rachel Dalton on 11-19-2024 Estimated GFR (MDRD) Non-Af Amer 65 >60 [facility] Comment on above: mL/min/1.73m2 CKD-EP I Creatinine Equation (2020) Glomerular filtration rate ( GFR) estimation/1.73 sq m using serum, plasma, or whole bOrdered By: Rachel Dalton on 11-19-2024 GFR/1.73 sq M.predicted among non-blacks MDRD (S/P/Bld) [Vol rate/Area] 65 mL/min/{1.73_m2} >60 [facility] Comment on above: mL/min/1.73m2 CKD-EP I Creatinine Equation (2020) Hematocrit Auto (Bld) [Volum e fraction]Ordered By: Rachel Dalton on 11-19-2024 Hematocrit (Bld) [Volume fraction] 36.5 % Low 37-47 [facility] Hemoglobin measurementOrdere d By: Rachel Dalton on 11-19-2024 Hemoglobin (Bld) [Mass/Vol] 12.0 g/dL 12.0-15.0 [facility] Immature granulocytes/100 WB C Auto (Bld)Ordered By: Rachel Dalton on 11-19-2024 Immature granulocytes/100 WBC (Bld) 0.200 % 0.0-0.9 [facility] Comment on above: IG% - Immature Granu locytes (promyelocytes, myelocytes and metamyelocytes) > 1% indicates that a LEFT SHIFT is Present. Lymphocytes Auto (Unsp spec) [#/Vol]Ordered By: Rachel Dalton on 11-19-2024 Lymphocytes (Bld) [#/Vol] 3.02 10*3/uL 0.83-4.5 1 [facility] Lymphocytes/100 WBC Auto (Un sp spec)Ordered By: Rachel Dalton on 11-19-2024 Lymphocytes/100 WBC (Bld) 54.0 % High 19-41 [facility] MCV (mean corpuscular volume ) determinationOrdered By: Rachel Dalton on 11-19-2024 MCV (RBC) [Entitic vol] 91.3 fL 81-99 [facility] Mean corpuscular hemoglobin (MCH) determinationOrdered By: Rachel Dalton on 11-19-2024 MCH (RBC) [Entitic mass] 30.0 pg 27.0-32.0 [facility] Mean corpuscular hemoglobin concentration (MCHC) determinationOrdered By: Rachel Dalton on 11-19-2024 MCHC (RBC) [Mass/Vol] 32.9 g/dL 32-36 [facility] Mean platelet volume determi nationOrdered By: Rachel Dalton on 11-19-2024 Platelet mean volume (Bld) [Entitic vol] 10.7 fL 6.2-12.0 [facility] Monocyte percentageOrdered B y: Rachel Dalton on 11-19-2024 Monocytes/100 WBC (Bld) 5.5 % 0-10 [facility] Neutrophil percentageOrdered By: Rachel Dalton on 11-19-2024 Neutrophils/100 WBC (Bld) 33.5 % Low 47-70 [facility] Nucleated red blood cell per centageOrdered By: Rachel Dalton on 11-19-2024 Nucleated RBC/100 WBC (Bld) [Ratio] 0 % 0-5 [facility] Platelet countOrdered By: Chase eanluis Dalton on 11-19-2024 Platelets (Bld) [#/Vol] 157 10*3/uL 150-450 [facility] Potassium (Unsp spec) [Mass/ Vol]Ordered By: Rachel Dalton on 11-19-2024 Potassium [Moles/Vol] 4.5 mmol/L 3.3-5.1 [facility] Potassium measurement (mass/ volume)Ordered By: Rachel Dalton on 11-19-2024 Potassium (Unsp spec) [Mass/Vol] 4.5 mmol/L 3.3-5.1 [facility] RBC Auto (Bld) [#/Vol]Ordere d By: Rachel Dalton on 11-19-2024 RBC (Bld) [#/Vol] 4.00 10*6/uL Low 4.2-5.4 [facility] Serum creatinine measurement (mass/volume)Ordered By: Rachel Dalton on 11-19-2024 Creatinine [Mass/Vol] 0.85 mg/dL 0.70-1.20 [facility] Serum glucose measurement (m ass/volume)Ordered By: Rachel Dalton on 11-19-2024 Glucose [Mass/Vol] 119 mg/dL High 70-99 [facility] Serum or plasma calcium khoi urement (mass/volume)Ordered By: Chasejose miguel Dalton on 11-19-2024 Calcium [Mass/Vol] 10.3 mg/dL 7.6-11.0 [facility] Serum or plasma urea nitroge n measurement (mass/volume)Ordered By: Rachel Dalton on 11-19-2024 Urea nitrogen [Mass/Vol] 19 mg/dL 4-19 [facility] Sodium levelOrdered By: Jamel smith Tylerlibiacharles on 11-19-2024 Sodium [Moles/Vol] 139 mmol/L 133-145 [facility] White blood cell (WBC) count Ordered By: Rachel Dalton on 11-19-2024 WBC (Bld) [#/Vol] 5.6 10*3/uL 4.4-11.0 [facility] Absolute lymphocyte countOrd ered By: Rachel Dalton on 11-13-2024 Lymphocytes Auto (Unsp spec) [#/Vol] 3.00 10*3/uL 0.83-4.51 [facility] Absolute neutrophil countOrd ered By: Jamelkatarzynadino Dalton on 11-13-2024 Neutrophils (Bld) [#/Vol] 1.4 10*3/uL Low 2.0-7.7 [facility] Anion gap in Serum or Plasma Ordered By: Rachel Dalton on 11-13-2024 Anion gap [Moles/Vol] 10 mmol/L 5-15 [facility] Automated lymphocyte count a s percentage of total leukocytesOrdered By: Rachel Dalton on 11-13-2024 Lymphocytes/100 WBC Auto (Unsp spec) 58.8 % High 19-41 [facility] BUN/creatinine ratioOrdered By: Rachel Scottlibiacharles on 11-13-2024 Urea nitrogen/Creatinine [Mass ratio] 20.1 mg/mg High 10-20 [facility] Basophil percentageOrdered B y: Rachel Dalton on 11-13-2024 Basophils/100 WBC (Bld) 0.6 % 0-1 [facility] Carbon dioxide, total [Moles /volume] in Central venous bloodOrdered By: Rachel Dalton on 11-13-2024 CO2 [Moles/Vol] 22.9 mmol/L 21.0-32.0 [facility] Chloride assayOrdered By: Chase Dalton on 11-13-2024 Chloride [Moles/Vol] 106 mmol/L 98-108 [facility] Eosinophil percentageOrdered By: Rachel Dalton on 11-13-2024 Eosinophils/100 WBC (Bld) 6.1 % High 0-5 [facility] Erythrocyte distribution wid th (RBC) [Ratio]Ordered By: Rachel Dalton on 11-13-2024 Erythrocyte distribution width (RBC) [Entitic vol] 42.2 fL 35.1-43.9 [facility] Erythrocyte distribution wid th ratioOrdered By: Jamelsaginawdino Dalton on 11-13-2024 Erythrocyte distribution width (RBC) [Ratio] 12.9 % 11.6-14.6 [facility] Erythrocyte distribution wid th standard deviationOrdered By: eansaginawdino Dalton on 11-13-2024 Erythrocyte distribution width (RBC) [Ratio] 42.2 fl 35.1-43.9 [facility] GFR/1.73 sq M.predicted brady g non-blacks MDRD (S/P/Bld) [Vol rate/Area]Ordered By: Rachel Dalton on 11-13-2024 Estimated GFR (MDRD) Non-Af Amer 54 Low >60 [facility] Comment on above: mL/min/1.73m2 CKD-EP I Creatinine Equation (2020) Glomerular filtration rate ( GFR) estimation/1.73 sq m using serum, plasma, or whole bOrdered By: Rachel Dalton on 11-13-2024 GFR/1.73 sq M.predicted among non-blacks MDRD (S/P/Bld) [Vol rate/Area] 54 mL/min/{1.73_m2} Low >60 [facility] Comment on above: mL/min/1.73m2 CKD-EP I Creatinine Equation (2020) Hematocrit Auto (Bld) [Volum e fraction]Ordered By: Rachel Dalton on 11-13-2024 Hematocrit (Bld) [Volume fraction] 35.5 % Low 37-47 [facility] Hemoglobin measurementOrdere d By: Rachel Dalton on 11-13-2024 Hemoglobin (Bld) [Mass/Vol] 11.9 g/dL Low 12.0-15.0 [facility] Immature granulocytes/100 WB C Auto (Bld)Ordered By: Rachel Dalton on 11-13-2024 Immature granulocytes/100 WBC (Bld) 0.200 % 0.0-0.9 [facility] Comment on above: IG% - Immature Granu locytes (promyelocytes, myelocytes and metamyelocytes) > 1% indicates that a LEFT SHIFT is Present. Lymphocytes Auto (Unsp spec) [#/Vol]Ordered By: Rachel Dalton on 11-13-2024 Lymphocytes (Bld) [#/Vol] 3.00 10*3/uL 0.83-4.5 1 [facility] Lymphocytes/100 WBC Auto (Un sp spec)Ordered By: Rachel Dalton on 11-13-2024 Lymphocytes/100 WBC (Bld) 58.8 % High 19-41 [facility] MCV (mean corpuscular volume ) determinationOrdered By: Rachel Dalton on 11-13-2024 MCV (RBC) [Entitic vol] 91.3 fL 81-99 [facility] Mean corpuscular hemoglobin (MCH) determinationOrdered By: Rachel Dalton on 11-13-2024 MCH (RBC) [Entitic mass] 30.6 pg 27.0-32.0 [facility] Mean corpuscular hemoglobin concentration (MCHC) determinationOrdered By: Rachel Dalton on 11-13-2024 MCHC (RBC) [Mass/Vol] 33.5 g/dL 32-36 [facility] Mean platelet volume determi nationOrdered By: Rachel Dalton on 11-13-2024 Platelet mean volume (Bld) [Entitic vol] 10.4 fL 6.2-12.0 [facility] Monocyte percentageOrdered B y: Rachel Dalton on 11-13-2024 Monocytes/100 WBC (Bld) 6.5 % 0-10 [facility] Neutrophil percentageOrdered By: Rachel Tylerlibiacharles on 11-13-2024 Neutrophils/100 WBC (Bld) 27.8 % Low 47-70 [facility] Nucleated red blood cell per centageOrdered By: Jamelkatarzynadino Scottlibiacharles on 11-13-2024 Nucleated RBC/100 WBC (Bld) [Ratio] 0 % 0-5 [facility] Platelet countOrdered By: Chase jose miguel Sha on 11-13-2024 Platelets (Bld) [#/Vol] 166 10*3/uL 150-450 [facility] Potassium (Unsp spec) [Mass/ Vol]Ordered By: Rachel Dalton on 11-13-2024 Potassium [Moles/Vol] 4.6 mmol/L 3.3-5.1 [facility] Potassium measurement (mass/ volume)Ordered By: Rachel Dalton on 11-13-2024 Potassium (Unsp spec) [Mass/Vol] 4.6 mmol/L 3.3-5.1 [facility] RBC Auto (Bld) [#/Vol]Ordere d By: Chasejose miguel Tylerlibiacharles on 11-13-2024 RBC (Bld) [#/Vol] 3.89 10*6/uL Low 4.2-5.4 [facility] Serum creatinine measurement (mass/volume)Ordered By: Rachel Dalton on 11-13-2024 Creatinine [Mass/Vol] 1.00 mg/dL 0.70-1.20 [facility] Serum glucose measurement (m ass/volume)Ordered By: Rachel Dalton on 11-13-2024 Glucose [Mass/Vol] 122 mg/dL High 70-99 [facility] Serum or plasma calcium khoi urement (mass/volume)Ordered By: Jamelkatarzynadino Dalton on 11-13-2024 Calcium [Mass/Vol] 10.1 mg/dL 7.6-11.0 [facility] Serum or plasma urea nitroge n measurement (mass/volume)Ordered By: Rachel Dalton on 11-13-2024 Urea nitrogen [Mass/Vol] 20 mg/dL High 4-19 [facility] Sodium levelOrdered By: Jamel acevedophoebe Sha on 11-13-2024 Sodium [Moles/Vol] 139 mmol/L 133-145 [facility] White blood cell (WBC) count Ordered By: Rachel Dalton on 11-13-2024 WBC (Bld) [#/Vol] 5.1 10*3/uL 4.4-11.0 [facility] Bilirubin Test strip Ql (U)O rdered By: Rachel Dalton on 10-25-2024 Bilirubin Ql (U) Negative Negative [facility] Epithelial cells.squamous LM Ql (Urine sed)Ordered By: Rachel Dalton on 10-25-2024 Epithelial cells.squamous LM.HPF (Urine sed) [#/Area] 0 /[HPF] 5-10 [facility] Glucose Ql (U)Ordered By: Chase Dalton on 10-25-2024 Urine Glucose (UA) Normal mg/dl Normal [facility] Ketones Test strip Ql (U)Ord ered By: Rachel Dalton on 10-25-2024 Ketones Ql (U) Negative Negative [facility] Microscopic analysis of urin e for red blood cells (RBC)Ordered By: Rachel Dalton on 10-25-2024 Microscopic analysis of urine for red blood cells (RBC) 0 SEEN /hpf 0-5 [facility] Urine RBC 0 SEEN /hpf 0-5 [facility] Mucus LM Ql (Urine sed)Order ed By: Rachel Dalton on 10-25-2024 Mucus Ql (Urine sed) 0 SEEN /hpf [facility] Nitrite Test strip Ql (U)Ord ered By: Rachel Dalton on 10-25-2024 Nitrite Ql (U) Negative Negative [facility] Protein Test strip Ql (U)Ord ered By: Rachel Dalton on 10-25-2024 Protein Ql (U) 30 mg/dl High Negative [facility] Squamous epithelial cells de tection in urine sediment by light microscopyOrdered By: Rachel Dalton on 10-25-2024 Epithelial cells.squamous LM Ql (Urine sed) 0-5 SEEN /hpf 5-10 [facility] Urine blood detectionOrdered By: Rachel Dalton on 10-25-2024 Urine Occult Blood 25 /ul High Negative [facility] Urine clarityOrdered By: Steven Dalton on 10-25-2024 Clarity (U) Sl. Cloudy Clear [facility] Urine color determinationOrd ered By: Rachel Dalton on 10-25-2024 Color (U) Yellow Yellow [facility] Urine cultureOrdered By: Steven Dalton on 10-25-2024 Bacteria identified Cx Nom (U) Presumptive E. coli Abnormal [facility] Urine glucose detectionOrder ed By: Rachel Dalton on 10-25-2024 Glucose Ql (U) Normal mg/dl Normal [facility] Urine leukocyte esterase det ection by dipstickOrdered By: Rachel Datlon on 10-25-2024 Leukocyte esterase Test strip Ql (U) 500 /ul High Negative [facility] Urine pHOrdered By: Lashanda Dalton on 10-25-2024 pH (U) 6.0 [pH] 5.0 - 8.0 [facility] Urine sediment bacteria coun t by microscopy (number/high power field)Ordered By: Rachel Dalton on 10-25-2024 Bacteria LM.HPF (Urine sed) [#/Area] 0 /[HPF] None Seen [facility] Urine specific gravity measu rementOrdered By: Rachel Dalton on 10-25-2024 Specific gravity (U) [Rel density] 1.015 1.002-1.030 [facility] Urine urobilinogen measureme ntOrdered By: Rachel Dalton on 10-25-2024 Urobilinogen Ql (U) Normal mg/dl Normal [facility] Urobilinogen Ql (U)Ordered B y: Rachel Dalton on 10-25-2024 Urine Urobilinogen Normal mg/dl Normal [facility] White blood cell countOrdere d By: Rachel Dalton on 10-25-2024 Urine WBC 10-25 SEEN /hpf 0-5 [facility] White blood cell count 10-25 SEEN /hpf 0-5 [facility] Absolute lymphocyte countOrd ered By: Rachel Dalton on 10-22-2024 Lymphocytes Auto (Unsp spec) [#/Vol] 2.22 10*3/uL 0.83-4.51 [facility] Absolute neutrophil countOrd ered By: Rachel Dalton on 10-22-2024 Neutrophils (Bld) [#/Vol] 3.4 10*3/uL 2.0-7.7 [facility] Automated lymphocyte count a s percentage of total leukocytesOrdered By: Rachel Dalton on 10-22-2024 Lymphocytes/100 WBC Auto (Unsp spec) 35.4 % 19-41 [facility] Basophil percentageOrdered B y: Rachel Dalton on 10-22-2024 Basophils/100 WBC (Bld) 0.5 % 0-1 [facility] Blood urea nitrogen (BUN)/cr eatinine ratioOrdered By: Rachel Dalton on 10-22-2024 Urea nitrogen/Creatinine [Mass ratio] 21.6 mg/mg High 10-20 [facility] Carbon dioxide measurementOr dered By: Rachel Dalton on 10-22-2024 CO2 [Moles/Vol] 28.0 mmol/L 21.0-32.0 [facility] Chloride measurementOrdered By: Rachel Dalton on 10-22-2024 Chloride [Moles/Vol] 105 mmol/L 98-107 [facility] Eosinophil percentageOrdered By: Rachel Dalton on 10-22-2024 Eosinophils/100 WBC (Bld) 3.0 % 0-5 [facility] Erythrocyte distribution wid th (RBC) [Ratio]Ordered By: Rachel Dalton on 10-22-2024 Erythrocyte distribution width (RBC) [Entitic vol] 42.8 fL 35.1-43.9 [facility] Erythrocyte distribution wid th ratioOrdered By: Rachel Dalton on 10-22-2024 Erythrocyte distribution width (RBC) [Ratio] 12.7 % 11.6-14.6 [facility] Erythrocyte distribution wid th standard deviationOrdered By: Rachel Dalton on 10-22-2024 Erythrocyte distribution width (RBC) [Ratio] 42.8 fl 35.1-43.9 [facility] Estimated glomerular filtrat ion rate (GFR) AmericanOrdered By: Rachel Dalton on 10-22-2024 Estimated GFR (MDRD) Amer 83 mL/min >60 [facility] Comment on above: GFR Calc Glomerular filtration rate ( GFR) estimationOrdered By: Rachel Dalton on 10-22-2024 Estimated GFR (MDRD) Non-Af Amer 68 mL/min >60 [facility] Comment on above: Non- GFR Calc GFR/1.73 sq M.predicted among non-blacks MDRD (S/P/Bld) [Vol rate/Area] 68 mL/min/{1.73_m2} >60 [facility] Comment on above: Non- GFR Calc Glucose measurementOrdered B y: Rachel Dalton on 10-22-2024 Glucose [Mass/Vol] 130 mg/dL High 74-106 [facility] Comment on above: Fasting Glucose resu lt greater than or equal to 126 mg/dL suggests DIABETES MELLITUS per A.D.A. criteria. Hematocrit Auto (Bld) [Volum e fraction]Ordered By: Rachel Dalton on 10-22-2024 Hematocrit (Bld) [Volume fraction] 36.5 % Low 37-47 [facility] Hemoglobin measurementOrdere d By: Rachel Dalton on 10-22-2024 Hemoglobin (Bld) [Mass/Vol] 11.7 g/dL Low 12.0-15.0 [facility] Immature granulocytes/100 WB C Auto (Bld)Ordered By: Rachel Dalton on 10-22-2024 Immature granulocytes/100 WBC (Bld) 0.300 % 0.0-0.9 [facility] Comment on above: IG% - Immature Granu locytes (promyelocytes, myelocytes and metamyelocytes) > 1% indicates that a LEFT SHIFT is Present. Lymphocytes Auto (Unsp spec) [#/Vol]Ordered By: Rachel Dalton on 10-22-2024 Lymphocytes (Bld) [#/Vol] 2.22 10*3/uL 0.83-4.5 1 [facility] Lymphocytes/100 WBC Auto (Un sp spec)Ordered By: Rachel Dalton on 10-22-2024 Lymphocytes/100 WBC (Bld) 35.4 % 19-41 [facility] MCV (mean corpuscular volume ) determinationOrdered By: Rachel Dalton on 10-22-2024 MCV (RBC) [Entitic vol] 92.4 fL 81-99 [facility] Mean corpuscular hemoglobin (MCH) determinationOrdered By: Rachel Dalton on 10-22-2024 MCH (RBC) [Entitic mass] 29.6 pg 27.0-32.0 [facility] Mean corpuscular hemoglobin concentration (MCHC) determinationOrdered By: Rachel Dalton on 10-22-2024 MCHC (RBC) [Mass/Vol] 32.1 g/dL 32-36 [facility] Mean platelet volume determi nationOrdered By: Rachel Dalton on 10-22-2024 Platelet mean volume (Bld) [Entitic vol] 10.7 fL 6.2-12.0 [facility] Monocyte percentageOrdered B y: Rachel Dalton on 10-22-2024 Monocytes/100 WBC (Bld) 6.5 % 0-10 [facility] Neutrophil percentageOrdered By: Rachel Dalton on 10-22-2024 Neutrophils/100 WBC (Bld) 54.3 % 47-70 [facility] Nucleated red blood cell per centageOrdered By: Rachel Dalton on 10-22-2024 Nucleated RBC/100 WBC (Bld) [Ratio] 0 % 0-5 [facility] Platelet countOrdered By: Chase Dalton on 10-22-2024 Platelets (Bld) [#/Vol] 176 10*3/uL 150-450 [facility] Potassium measurementOrdered By: Rachel Dalton on 10-22-2024 Potassium [Moles/Vol] 4.4 mmol/L 3.5-5.1 [facility] RBC Auto (Bld) [#/Vol]Ordere d By: Rachel Dalton on 10-22-2024 RBC (Bld) [#/Vol] 3.95 10*6/uL Low 4.2-5.4 [facility] Serum anion gap measurementO rdered By: Rachel Dalton on 10-22-2024 Anion gap [Moles/Vol] 5 mmol/L 5-15 [facility] Serum or plasma calcium khoi urement (mass/volume)Ordered By: Rachel Dalton on 10-22-2024 Calcium [Mass/Vol] 10.3 mg/dL High 8.5-10.1 [facility] Serum or plasma creatinine m easurement (mass/volume)Ordered By: Rachel Dalton on 10-22-2024 Creatinine [Mass/Vol] 0.84 mg/dL 0.55-1.02 [facility] Comment on above: The validity of the calculated GFR & GFRAA in patients over 70 years has not been determined. Clinical correlation is essential. Serum or plasma urea nitroge n measurement (mass/volume)Ordered By: Rachel Dalton on 10-22-2024 Urea nitrogen [Mass/Vol] 18 mg/dL 7-18 [facility] Sodium levelOrdered By: Jamel acevedophoebe Sha on 10-22-2024 Sodium [Moles/Vol] 138 mmol/L 136-145 [facility] White blood cell (WBC) count Ordered By: Rachel Dalton on 10-22-2024 WBC (Bld) [#/Vol] 6.3 10*3/uL 4.4-11.0 [facility] Cardiology Visit Reporton Cardiology Visit Report Normal [facility] Pacemaker Checkon 10-17-2024 Pacemaker Check Normal [facility] Absolute lymphocyte countOrd ered By: Rachel Dalton on 10-16-2024 Lymphocytes Auto (Unsp spec) [#/Vol] 2.80 10*3/uL 0.83-4.51 [facility] Absolute neutrophil countOrd ered By: Rachel Dalton on 10-16-2024 Neutrophils (Bld) [#/Vol] 1.6 10*3/uL Low 2.0-7.7 [facility] Automated lymphocyte count a s percentage of total leukocytesOrdered By: Rachel Dalton on 10-16-2024 Lymphocytes/100 WBC Auto (Unsp spec) 56.0 % High 19-41 [facility] Basophil percentageOrdered B y: Rachel Dalton on 10-16-2024 Basophils/100 WBC (Bld) 0.4 % 0-1 [facility] Blood urea nitrogen (BUN)/cr eatinine ratioOrdered By: Rachel Dalton on 10-16-2024 Urea nitrogen/Creatinine [Mass ratio] 18.6 mg/mg 10-20 [facility] Carbon dioxide measurementOr dered By: Rachel Dalton on 10-16-2024 CO2 [Moles/Vol] 25.0 mmol/L 21.0-32.0 [facility] Chloride measurementOrdered By: [facility] on 10-16-2024 Chloride [Moles/Vol] 108 mmol/L High 98-107 [facility] Eosinophil percentageOrdered By: Rachel Dalton on 10-16-2024 Eosinophils/100 WBC (Bld) 5.8 % High 0-5 [facility] Erythrocyte distribution wid th (RBC) [Ratio]Ordered By: Rachel Dalton on 10-16-2024 Erythrocyte distribution width (RBC) [Entitic vol] 42.5 fL 35.1-43.9 [facility] Erythrocyte distribution wid th ratioOrdered By: Rachel Dalton on 10-16-2024 Erythrocyte distribution width (RBC) [Ratio] 12.8 % 11.6-14.6 [facility] Erythrocyte distribution wid th standard deviationOrdered By: jose miguel Dalton on 10-16-2024 Erythrocyte distribution width (RBC) [Ratio] 42.5 fl 35.1-43.9 [facility] Estimated glomerular filtrat ion rate (GFR) AmericanOrdered By: Rachel Dalton on 10-16-2024 Estimated GFR (MDRD) Amer 74 mL/min >60 [facility] Comment on above: GFR Calc Glomerular filtration rate ( GFR) estimationOrdered By: Rachel Dalton on 10-16-2024 Estimated GFR (MDRD) Non-Af Amer 61 mL/min >60 [facility] Comment on above: Non- GFR Calc GFR/1.73 sq M.predicted among non-blacks MDRD (S/P/Bld) [Vol rate/Area] 61 mL/min/{1.73_m2} >60 [facility] Comment on above: Non- GFR Calc Glucose measurementOrdered B y: Rachel Dalton on 10-16-2024 Glucose [Mass/Vol] 122 mg/dL High 74-106 [facility] Comment on above: Fasting Glucose resu lt from 100 to 125 mg/dL suggests IMPAIRED HOMEOSTASIS per A.D.A. criteria. Hematocrit Auto (Bld) [Volum e fraction]Ordered By: Rachel Dalton on 10-16-2024 Hematocrit (Bld) [Volume fraction] 35.2 % Low 37-47 [facility] Hemoglobin measurementOrdere d By: Rachel Dalton on 10-16-2024 Hemoglobin (Bld) [Mass/Vol] 11.4 g/dL Low 12.0-15.0 [facility] Immature granulocytes/100 WB C Auto (Bld)Ordered By: jose miguel Dalton on 10-16-2024 Immature granulocytes/100 WBC (Bld) 0.200 % 0.0-0.9 [facility] Comment on above: IG% - Immature Granu locytes (promyelocytes, myelocytes and metamyelocytes) > 1% indicates that a LEFT SHIFT is Present. Lymphocytes Auto (Unsp spec) [#/Vol]Ordered By: Rachel Dalton on 10-16-2024 Lymphocytes (Bld) [#/Vol] 2.80 10*3/uL 0.83-4.5 1 [facility] Lymphocytes/100 WBC Auto (Un sp spec)Ordered By: Rachel Dalton on 10-16-2024 Lymphocytes/100 WBC (Bld) 56.0 % High 19-41 [facility] MCV (mean corpuscular volume ) determinationOrdered By: Rachel Dalton on 10-16-2024 MCV (RBC) [Entitic vol] 92.1 fL 81-99 [facility] Mean corpuscular hemoglobin (MCH) determinationOrdered By: Rachel Dalton on 10-16-2024 MCH (RBC) [Entitic mass] 29.8 pg 27.0-32.0 [facility] Mean corpuscular hemoglobin concentration (MCHC) determinationOrdered By: Rachel Dalton on 10-16-2024 MCHC (RBC) [Mass/Vol] 32.4 g/dL 32-36 [facility] Mean platelet volume determi nationOrdered By: Rachel Dalton on 10-16-2024 Platelet mean volume (Bld) [Entitic vol] 10.5 fL 6.2-12.0 [facility] Monocyte percentageOrdered B y: Rachel Dalton on 10-16-2024 Monocytes/100 WBC (Bld) 6.0 % 0-10 [facility] Neutrophil percentageOrdered By: Rachel Dalton on 10-16-2024 Neutrophils/100 WBC (Bld) 31.6 % Low 47-70 [facility] Nucleated red blood cell per centageOrdered By: Rachel Dalton on 10-16-2024 Nucleated RBC/100 WBC (Bld) [Ratio] 0 % 0-5 [facility] Platelet countOrdered By: Chase Dalton on 10-16-2024 Platelets (Bld) [#/Vol] 177 10*3/uL 150-450 [facility] Potassium measurementOrdered By: Rachel Dalton on 10-16-2024 Potassium [Moles/Vol] 4.1 mmol/L 3.5-5.1 [facility] RBC Auto (Bld) [#/Vol]Ordere d By: Rachel Dalton on 10-16-2024 RBC (Bld) [#/Vol] 3.82 10*6/uL Low 4.2-5.4 [facility] Serum anion gap measurementO rdered By: Rachel Dalton on 10-16-2024 Anion gap [Moles/Vol] 6 mmol/L 5-15 [facility] Serum or plasma calcium khoi urement (mass/volume)Ordered By: Rachel Dalton on 10-16-2024 Calcium [Mass/Vol] 10.1 mg/dL 8.5-10.1 [facility] Serum or plasma creatinine m easurement (mass/volume)Ordered By: Rachel Dalton on 10-16-2024 Creatinine [Mass/Vol] 0.92 mg/dL 0.55-1.02 [facility] Comment on above: The validity of the calculated GFR & GFRAA in patients over 70 years has not been determined. Clinical correlation is essential. Serum or plasma urea nitroge n measurement (mass/volume)Ordered By: Rachel Dalton on 10-16-2024 Urea nitrogen [Mass/Vol] 17 mg/dL 7-18 [facility] Sodium levelOrdered By: Jamel Dalton on 10-16-2024 Sodium [Moles/Vol] 139 mmol/L 136-145 [facility] White blood cell (WBC) count Ordered By: Rachel Dalton on 10-16-2024 WBC (Bld) [#/Vol] 5.0 10*3/uL 4.4-11.0 [facility] Absolute neutrophil countOrd ered By: Rachel Dalton on 09-24-2024 Neutrophils (Bld) [#/Vol] 3.0 10*3/uL 2.0-7.7 [facility] Basophil percentageOrdered B y: Rachel Dalton on 09-24-2024 Basophils/100 WBC (Bld) 0.3 % 0-1 [facility] Blood urea nitrogen (BUN)/cr eatinine ratioOrdered By: Rachel Dalton on 09-24-2024 Urea nitrogen/Creatinine [Mass ratio] 17.4 mg/mg 10-20 [facility] Carbon dioxide measurementOr dered By: Rachel Dalton on 09-24-2024 CO2 [Moles/Vol] 28.0 mmol/L 21.0-32.0 [facility] Chloride measurementOrdered By: Rachel Dalton on 09-24-2024 Chloride [Moles/Vol] 108 mmol/L High 98-107 [facility] Eosinophil percentageOrdered By: Rachel Dalton on 09-24-2024 Eosinophils/100 WBC (Bld) 3.7 % 0-5 [facility] Erythrocyte distribution wid th (RBC) [Ratio]Ordered By: Rachel Giraldocharles on 09-24-2024 Erythrocyte distribution width (RBC) [Entitic vol] 40.9 fL 35.1-43.9 [facility] Erythrocyte distribution wid th ratioOrdered By: Rachel Tylerlibiacharles on 09-24-2024 Erythrocyte distribution width (RBC) [Ratio] 12.1 % 11.6-14.6 [facility] Estimated glomerular filtrat ion rate (GFR) AmericanOrdered By: eankatarzynadino Scottlibiacharles on 09-24-2024 Estimated GFR (MDRD) Amer 74 mL/min >60 [facility] Comment on above: GFR Calc Glomerular filtration rate ( GFR) estimationOrdered By: Rachel Dalton on 09-24-2024 Estimated GFR (MDRD) Non-Af Amer 61 mL/min >60 [facility] Comment on above: Non- GFR Calc Glucose measurementOrdered B y: Rachel Tylerlibiacharles on 09-24-2024 Glucose [Mass/Vol] 148 mg/dL High 74-106 [facility] Comment on above: Fasting Glucose resu lt greater than or equal to 126 mg/dL suggests DIABETES MELLITUS per A.D.A. criteria. Hematocrit Auto (Bld) [Volum e fraction]Ordered By: Rachel Scottlibiacharles on 09-24-2024 Hematocrit (Bld) [Volume fraction] 35.1 % Low 37-47 [facility] Hemoglobin measurementOrdere d By: Rachel Tylerlibiacharles on 09-24-2024 Hemoglobin (Bld) [Mass/Vol] 11.5 g/dL Low 12.0-15.0 [facility] Immature granulocytes/100 WB C Auto (Bld)Ordered By: Dexdino Scottlibiacharles on 09-24-2024 Immature granulocytes/100 WBC (Bld) 0.300 % 0.0-0.9 [facility] Comment on above: IG% - Immature Granu locytes (promyelocytes, myelocytes and metamyelocytes) > 1% indicates that a LEFT SHIFT is Present. Lymphocytes Auto (Unsp spec) [#/Vol]Ordered By: Rachel Dalton on 09-24-2024 Lymphocytes (Bld) [#/Vol] 2.58 10*3/uL 0.83-4.5 1 [facility] Lymphocytes/100 WBC Auto (Un sp spec)Ordered By: Rachel Dalton on 09-24-2024 Lymphocytes/100 WBC (Bld) 41.9 % High 19-41 [facility] MCV (mean corpuscular volume ) determinationOrdered By: Rachel Dalton on 09-24-2024 MCV (RBC) [Entitic vol] 92.1 fL 81-99 [facility] Mean corpuscular hemoglobin (MCH) determinationOrdered By: Rachel Dalton on 09-24-2024 MCH (RBC) [Entitic mass] 30.2 pg 27.0-32.0 [facility] Mean corpuscular hemoglobin concentration (MCHC) determinationOrdered By: Rachel Dalton on 09-24-2024 MCHC (RBC) [Mass/Vol] 32.8 g/dL 32-36 [facility] Mean platelet volume determi nationOrdered By: Rachel Dalton on 09-24-2024 Platelet mean volume (Bld) [Entitic vol] 10.2 fL 6.2-12.0 [facility] Monocyte percentageOrdered B y: Rachel Dalton on 09-24-2024 Monocytes/100 WBC (Bld) 5.0 % 0-10 [facility] Neutrophil percentageOrdered By: Rachel Dalton on 09-24-2024 Neutrophils/100 WBC (Bld) 48.8 % 47-70 [facility] Nucleated red blood cell per centageOrdered By: Rachel Dalton on 09-24-2024 Nucleated RBC/100 WBC (Bld) [Ratio] 0 % 0-5 [facility] Platelet countOrdered By: Chase Dalton on 09-24-2024 Platelets (Bld) [#/Vol] 222 10*3/uL 150-450 [facility] Potassium measurementOrdered By: Rachel Dalton on 09-24-2024 Potassium [Moles/Vol] 4.3 mmol/L 3.5-5.1 [facility] RBC Auto (Bld) [#/Vol]Ordere d By: Rachel Dalton on 09-24-2024 RBC (Bld) [#/Vol] 3.81 10*6/uL Low 4.2-5.4 [facility] Serum anion gap measurementO rdered By: Rachel Dalton on 09-24-2024 Anion gap [Moles/Vol] 3 mmol/L Low 5-15 [facility] Serum or plasma calcium khoi urement (mass/volume)Ordered By: Rachel Dalton on 09-24-2024 Calcium [Mass/Vol] 10.3 mg/dL High 8.5-10.1 [facility] Serum or plasma creatinine m easurement (mass/volume)Ordered By: Rachel Dalton on 09-24-2024 Creatinine [Mass/Vol] 0.92 mg/dL 0.55-1.02 [facility] Comment on above: The validity of the calculated GFR & GFRAA in patients over 70 years has not been determined. Clinical correlation is essential. Serum or plasma urea nitroge n measurement (mass/volume)Ordered By: Rachel Dalton on 09-24-2024 Urea nitrogen [Mass/Vol] 16 mg/dL 7-18 [facility] Sodium levelOrdered By: Jamel Dalton on 09-24-2024 Sodium [Moles/Vol] 140 mmol/L 136-145 [facility] White blood cell (WBC) count Ordered By: Rachel Dalton on 09-24-2024 WBC (Bld) [#/Vol] 6.2 10*3/uL 4.4-11.0 [facility] Absolute neutrophil countOrd ered By: Rachel Dalton on 09-13-2024 Neutrophils (Bld) [#/Vol] 5.7 10*3/uL 2.0-7.7 [facility] Basophil percentageOrdered B y: Rachel Dalton on 09-13-2024 Basophils/100 WBC (Bld) 0.2 % 0-1 [facility] Bilirubin directOrdered By: Rachel Dalton on 09-13-2024 Bilirubin.direct [Mass/Vol] 0.17 mg/dL 0.00-0.30 [facility] Bilirubin, totalOrdered By: Rachel Dalton on 09-13-2024 Bilirubin [Mass/Vol] 0.80 mg/dL 0.20-1.00 [facility] Comment on above: For patients on eltr ombopag therapy, use of Dimension Lester TBIL is not recommended. Blood urea nitrogen (BUN)/cr eatinine ratioOrdered By: Rachel Dalton on 09-13-2024 Urea nitrogen/Creatinine [Mass ratio] 23.4 mg/mg High 10-20 [facility] Carbon dioxide measurementOr dered By: Rachel Dalton on 09-13-2024 CO2 [Moles/Vol] 23.0 mmol/L 21.0-32.0 [facility] Chloride measurementOrdered By: Rachel Dalton on 09-13-2024 Chloride [Moles/Vol] 105 mmol/L 98-107 [facility] Eosinophil percentageOrdered By: Rachel Dalton on 09-13-2024 Eosinophils/100 WBC (Bld) 0.7 % 0-5 [facility] Erythrocyte distribution wid th (RBC) [Ratio]Ordered By: Rachel Dalton on 09-13-2024 Erythrocyte distribution width (RBC) [Entitic vol] 41.8 fL 35.1-43.9 [facility] Erythrocyte distribution wid th ratioOrdered By: Rachel Dalton on 09-13-2024 Erythrocyte distribution width (RBC) [Ratio] 12.3 % 11.6-14.6 [facility] Estimated glomerular filtrat ion rate (GFR) AmericanOrdered By: Rachel Dalton on 09-13-2024 Estimated GFR (MDRD) Amer 85 mL/min >60 [facility] Comment on above: GFR Calc Glomerular filtration rate ( GFR) estimationOrdered By: Rachel Dalton on 09-13-2024 Estimated GFR (MDRD) Non-Af Amer 71 mL/min >60 [facility] Comment on above: Non- GFR Calc Glucose measurementOrdered B y: Rachel Dalton on 09-13-2024 Glucose [Mass/Vol] 151 mg/dL High 74-106 [facility] Comment on above: Fasting Glucose resu lt greater than or equal to 126 mg/dL suggests DIABETES MELLITUS per A.D.A. criteria. Hematocrit Auto (Bld) [Volum e fraction]Ordered By: Rachel Dalton on 09-13-2024 Hematocrit (Bld) [Volume fraction] 36.5 % Low 37-47 [facility] Hemoglobin A1c percentageOrd ered By: Rachel Dalton on 09-13-2024 HbA1c (Bld) [Mass fraction] 6.5 % High 3.8-5.6 [facility] Comment on above: Normal < 5.7 % Predi abetic 5.7 - 6.4 % Diabetic >or= 6.5 % Please note range changes. Hemoglobin measurementOrdere d By: Rachel Dalton on 09-13-2024 Hemoglobin (Bld) [Mass/Vol] 11.7 g/dL Low 12.0-15.0 [facility] Immature granulocytes/100 WB C Auto (Bld)Ordered By: Rachel Dalton on 09-13-2024 Immature granulocytes/100 WBC (Bld) 0.200 % 0.0-0.9 [facility] Comment on above: IG% - Immature Granu locytes (promyelocytes, myelocytes and metamyelocytes) > 1% indicates that a LEFT SHIFT is Present. Laboratory - Chemistry and C hemistry - challengeOrdered By: Rachel Dalton on 09-13-2024 AST [Catalytic activity/Vol] 15 U/L 15-37 [facility] Lymphocytes Auto (Unsp spec) [#/Vol]Ordered By: Rachel Dalton on 09-13-2024 Lymphocytes (Bld) [#/Vol] 2.00 10*3/uL 0.83-4.5 1 [facility] Lymphocytes/100 WBC Auto (Un sp spec)Ordered By: Rachel Dalton on 09-13-2024 Lymphocytes/100 WBC (Bld) 23.8 % 19-41 [facility] MCV (mean corpuscular volume ) determinationOrdered By: Rachel Dalton on 09-13-2024 MCV (RBC) [Entitic vol] 92.2 fL 81-99 [facility] Mean corpuscular hemoglobin (MCH) determinationOrdered By: Rachel Dalton on 09-13-2024 MCH (RBC) [Entitic mass] 29.5 pg 27.0-32.0 [facility] Mean corpuscular hemoglobin concentration (MCHC) determinationOrdered By: Rachel Dalton on 09-13-2024 MCHC (RBC) [Mass/Vol] 32.1 g/dL 32-36 [facility] Mean platelet volume determi nationOrdered By: Rachel Dalton on 09-13-2024 Platelet mean volume (Bld) [Entitic vol] 10.4 fL 6.2-12.0 [facility] Monocyte percentageOrdered B y: Rachel Dalton on 09-13-2024 Monocytes/100 WBC (Bld) 7.0 % 0-10 [facility] Neutrophil percentageOrdered By: Rachel Dalton on 09-13-2024 Neutrophils/100 WBC (Bld) 68.1 % 47-70 [facility] Nucleated red blood cell per centageOrdered By: Rachel Dalton on 09-13-2024 Nucleated RBC/100 WBC (Bld) [Ratio] 0 % 0-5 [facility] Platelet countOrdered By: Chase Dalton on 09-13-2024 Platelets (Bld) [#/Vol] 194 10*3/uL 150-450 [facility] Potassium measurementOrdered By: Rachel Dalton on 09-13-2024 Potassium [Moles/Vol] 4.2 mmol/L 3.5-5.1 [facility] RBC Auto (Bld) [#/Vol]Ordere d By: Rachel Dalton on 09-13-2024 RBC (Bld) [#/Vol] 3.96 10*6/uL Low 4.2-5.4 [facility] Serum anion gap measurementO rdered By: Rachel Dalton on 09-13-2024 Anion gap [Moles/Vol] 8 mmol/L 5-15 [facility] Serum globulin measurementOr dered By: Rachel Dalton on 09-13-2024 Globulin (S) [Mass/Vol] 3.9 g/dL 2.2-4.2 [facility] Serum or plasma alanine jaimes otransferase (ALT) measurementOrdered By: Rachel Dalton on 09-13-2024 ALT [Catalytic activity/Vol] 10 U/L Low 13-56 [facility] Serum or plasma albumin khoi urement (mass/volume)Ordered By: Rachel Dalton on 09-13-2024 Albumin [Mass/Vol] 3.0 g/dL Low 3.2-5.0 [facility] Serum or plasma alkaline luh sphatase measurementOrdered By: Rachel Dalton on 09-13-2024 ALP [Catalytic activity/Vol] 73 U/L 45-117 [facility] Serum or plasma calcium khoi urement (mass/volume)Ordered By: Rachel Dalton on 09-13-2024 Calcium [Mass/Vol] 10.0 mg/dL 8.5-10.1 [facility] Serum or plasma creatinine m easurement (mass/volume)Ordered By: Rachel Daltno on 09-13-2024 Creatinine [Mass/Vol] 0.81 mg/dL 0.55-1.02 [facility] Comment on above: The validity of the calculated GFR & GFRAA in patients over 70 years has not been determined. Clinical correlation is essential. Serum or plasma urea nitroge n measurement (mass/volume)Ordered By: Rachel Dalton on 09-13-2024 Urea nitrogen [Mass/Vol] 19 mg/dL High 7-18 [facility] Sodium levelOrdered By: Jamel Dalton on 09-13-2024 Sodium [Moles/Vol] 136 mmol/L 136-145 [facility] TSH QnOrdered By: Rachel Dalton on 09-13-2024 Thyroid Stimulating Hormone (TSH) 0.559 uIU/mL 0.358-3.740 [facility] Total proteinOrdered By: Steven Dalton on 09-13-2024 Protein [Mass/Vol] 6.9 g/dL 6.4-8.2 [facility] White blood cell (WBC) count Ordered By: Rachel Dalton on 09-13-2024 WBC (Bld) [#/Vol] 8.4 10*3/uL 4.4-11.0 [facility] Bilirubin Test strip Ql (U)O rdered By: Rachel Dalton on 08-29-2024 Bilirubin Ql (U) Negative Negative [facility] Epithelial cells.squamous LM Ql (Urine sed)Ordered By: Rachel Dalton on 08-29-2024 Epithelial cells.squamous LM.HPF (Urine sed) [#/Area] 0 /[HPF] 5-10 [facility] Glucose Ql (U)Ordered By: Chase Dalton on 08-29-2024 Urine Glucose (UA) Normal mg/dl Normal [facility] Ketones Test strip Ql (U)Ord ered By: Rachel Dalton on 08-29-2024 Ketones Ql (U) Negative Negative [facility] Microscopic analysis of urin e for red blood cells (RBC)Ordered By: Rachel Dalton on 08-29-2024 Urine RBC 0 SEEN /hpf 0-5 [facility] Mucus LM Ql (Urine sed)Order ed By: Rachel Dalton on 08-29-2024 Mucus Ql (Urine sed) 0 SEEN /hpf [facility] Nitrite Test strip Ql (U)Ord ered By: Rachel Dalton on 08-29-2024 Nitrite Ql (U) Negative Negative [facility] Protein Test strip Ql (U)Ord ered By: Rachel Dalton on 08-29-2024 Protein Ql (U) 30 mg/dl High Negative [facility] Urine blood detectionOrdered By: Rachel Dalton on 08-29-2024 Urine Occult Blood 25 /ul High Negative [facility] Urine clarityOrdered By: Steven Dalton on 08-29-2024 Clarity (U) Sl. Cloudy Clear [facility] Urine color determinationOrd ered By: Rachel Dalton on 08-29-2024 Color (U) Yellow Yellow [facility] Urine cultureOrdered By: Steven brennandino Dalton on 08-29-2024 Bacteria identified Cx Nom (U) Aerococcus urinae Abnormal [facility] Urine leukocyte esterase det ection by dipstickOrdered By: Rachel Dalton on 08-29-2024 Leukocyte esterase Test strip Ql (U) 100 /ul High Negative [facility] Urine pHOrdered By: Lashanda Dalton on 08-29-2024 pH (U) 6.5 [pH] 5.0 - 8.0 [facility] Urine sediment bacteria coun t by microscopy (number/high power field)Ordered By: Rachel Dalton on 08-29-2024 Bacteria LM.HPF (Urine sed) [#/Area] 0 /[HPF] None Seen [facility] Urine specific gravity measu rementOrdered By: Rachel Dalton on 08-29-2024 Specific gravity (U) [Rel density] 1.010 1.002-1.030 [facility] Urobilinogen Ql (U)Ordered B y: Rachel Dalton on 08-29-2024 Urine Urobilinogen Normal mg/dl Normal [facility] White blood cell countOrdere d By: Rachel Dalton on 08-29-2024 Urine WBC 0-5 SEEN /hpf 0-5 [facility] Absolute neutrophil countOrd ered By: Rachel Dalton on 08-20-2024 Neutrophils (Bld) [#/Vol] 4.5 10*3/uL 2.0-7.7 [facility] Basophil percentageOrdered B y: Rachel Daltno on 08-20-2024 Basophils/100 WBC (Bld) 0.4 % 0-1 [facility] Blood urea nitrogen (BUN)/cr eatinine ratioOrdered By: Rachel Dalton on 08-20-2024 Urea nitrogen/Creatinine [Mass ratio] 14.4 mg/mg 10-20 [facility] Carbon dioxide measurementOr dered By: Rachel Dalton on 08-20-2024 CO2 [Moles/Vol] 26.0 mmol/L 21.0-32.0 [facility] Chloride measurementOrdered By: Rachel Dalton on 08-20-2024 Chloride [Moles/Vol] 109 mmol/L High 98-107 [facility] Eosinophil percentageOrdered By: Rachel Dalton on 08-20-2024 Eosinophils/100 WBC (Bld) 2.3 % 0-5 [facility] Erythrocyte distribution wid th (RBC) [Ratio]Ordered By: Rachel Dalton on 08-20-2024 Erythrocyte distribution width (RBC) [Entitic vol] 43.2 fL 35.1-43.9 [facility] Erythrocyte distribution wid th ratioOrdered By: Rachel Dalton on 08-20-2024 Erythrocyte distribution width (RBC) [Ratio] 12.5 % 11.6-14.6 [facility] Estimated glomerular filtrat ion rate (GFR) AmericanOrdered By: Rachel Dalton on 08-20-2024 Estimated GFR (MDRD) Amer 76 mL/min >60 [facility] Comment on above: GFR Calc Glomerular filtration rate ( GFR) estimationOrdered By: Rachel Dalton on 08-20-2024 Estimated GFR (MDRD) Non-Af Amer 63 mL/min >60 [facility] Comment on above: Non- GFR Calc Glucose measurementOrdered B y: Rachel Dalton on 08-20-2024 Glucose [Mass/Vol] 148 mg/dL High 74-106 [facility] Comment on above: Fasting Glucose resu lt greater than or equal to 126 mg/dL suggests DIABETES MELLITUS per A.D.A. criteria. Hematocrit Auto (Bld) [Volum e fraction]Ordered By: Rachel Dalton on 08-20-2024 Hematocrit (Bld) [Volume fraction] 35.7 % Low 37-47 [facility] Hemoglobin measurementOrdere d By: Rachel Dalton on 08-20-2024 Hemoglobin (Bld) [Mass/Vol] 11.6 g/dL Low 12.0-15.0 [facility] Immature granulocytes/100 WB C Auto (Bld)Ordered By: Rachel Dalton on 08-20-2024 Immature granulocytes/100 WBC (Bld) 0.600 % 0.0-0.9 [facility] Comment on above: IG% - Immature Granu locytes (promyelocytes, myelocytes and metamyelocytes) > 1% indicates that a LEFT SHIFT is Present. Lymphocytes Auto (Unsp spec) [#/Vol]Ordered By: Rachel Dalton on 08-20-2024 Lymphocytes (Bld) [#/Vol] 2.71 10*3/uL 0.83-4.5 1 [facility] Lymphocytes/100 WBC Auto (Un sp spec)Ordered By: Rachel Dalton on 08-20-2024 Lymphocytes/100 WBC (Bld) 34.3 % 19-41 [facility] MCV (mean corpuscular volume ) determinationOrdered By: Rachel Dalton on 08-20-2024 MCV (RBC) [Entitic vol] 95.2 fL 81-99 [facility] Mean corpuscular hemoglobin (MCH) determinationOrdered By: Rachel Dalton on 08-20-2024 MCH (RBC) [Entitic mass] 30.9 pg 27.0-32.0 [facility] Mean corpuscular hemoglobin concentration (MCHC) determinationOrdered By: Rachel Dalton on 08-20-2024 MCHC (RBC) [Mass/Vol] 32.5 g/dL 32-36 [facility] Mean platelet volume determi nationOrdered By: Rachel Dalton on 08-20-2024 Platelet mean volume (Bld) [Entitic vol] 9.7 fL 6.2-12.0 [facility] Monocyte percentageOrdered B y: Rachel Dalton on 08-20-2024 Monocytes/100 WBC (Bld) 5.2 % 0-10 [facility] Neutrophil percentageOrdered By: Rachel Dalton on 08-20-2024 Neutrophils/100 WBC (Bld) 57.2 % 47-70 [facility] Nucleated red blood cell per centageOrdered By: Rachel Dalton on 08-20-2024 Nucleated RBC/100 WBC (Bld) [Ratio] 0 % 0-5 [facility] Platelet countOrdered By: Chase Dalton on 08-20-2024 Platelets (Bld) [#/Vol] 267 10*3/uL 150-450 [facility] Potassium measurementOrdered By: Rachel Dalton on 08-20-2024 Potassium [Moles/Vol] 4.5 mmol/L 3.5-5.1 [facility] RBC Auto (Bld) [#/Vol]Ordere d By: Rachel Dalton on 08-20-2024 RBC (Bld) [#/Vol] 3.75 10*6/uL Low 4.2-5.4 [facility] Serum anion gap measurementO rdered By: Rachel Dalton on 08-20-2024 Anion gap [Moles/Vol] 4 mmol/L Low 5-15 [facility] Serum or plasma calcium khoi urement (mass/volume)Ordered By: Rachel Dalton on 08-20-2024 Calcium [Mass/Vol] 10.2 mg/dL High 8.5-10.1 [facility] Serum or plasma creatinine m easurement (mass/volume)Ordered By: Rachel Tylerraysa on 08-20-2024 Creatinine [Mass/Vol] 0.90 mg/dL 0.55-1.02 [facility] Comment on above: The validity of the calculated GFR & GFRAA in patients over 70 years has not been determined. Clinical correlation is essential. Serum or plasma urea nitroge n measurement (mass/volume)Ordered By: Rachel Tylerlibiacharles on 08-20-2024 Urea nitrogen [Mass/Vol] 13 mg/dL 7-18 [facility] Sodium levelOrdered By: Jamel Dalton on 08-20-2024 Sodium [Moles/Vol] 139 mmol/L 136-145 [facility] White blood cell (WBC) count Ordered By: Rachel Dalton on 08-20-2024 WBC (Bld) [#/Vol] 7.9 10*3/uL 4.4-11.0 [facility] Basic Metabolic Profile (BMP )on 08-12-2024 BUN/CRE 39.1 RATIO High 10-20 [facility] Comment on above: Performed By: #### L 500.2500, L100.0100 ####[facility] [address] [place], [address] CA,Total 10.0 mg/dL Normal 8.5-10.1 [facility] Comment on above: Performed By: #### L 500.2500, L100.0100 ####[facility] [address] [place], [address] Chloride [Moles/Vol] 106 mmol/L Normal 98-107 [facility] Comment on above: Performed By: #### L 500.2500, L100.0100 ####[facility] [address] [place], [address] CO2 [Moles/Vol] 21.0 mmol/L Normal 21.0-32.0 [facility] Comment on above: Performed By: #### L 500.2500, L100.0100 ####[facility] [address] [place], [address] Creatinine [Mass/Vol] 0.87 mg/dL Normal 0.55-1.02 [facility] Comment on above: Result Comment: The validity of the calculated GFR GFRAA in patients over70 years has not been determined. Clinical correlation isessential. Performed By: #### L 500.2500, L100.0100 ####[facility] [address] [place], [address] ECRCL 36.42 ml/min Normal [facility] Comment on above: Performed By: #### L 500.2500, L100.0100 ####[facility] [address] [place], [address] EST GFR - AA 79 mL/min Normal >60 [facility] Comment on above: Result Comment: Afri can [place] GFR Calc Performed By: #### L 500.2500, L100.0100 ####[facility] [address] [place], [address] GAP 7 Normal 5-15 [facility] Comment on above: Performed By: #### L 500.2500, L100.0100 ####[facility] [address] [place], [address] GFR/1.73 sq M.predicted among non-blacks MDRD (S/P/Bld) [Vol rate/Area] 65 mL/min/{1.73_m2} Normal >60 [facility] Comment on above: Result Comment: Non- GFR Calc Performed By: #### L 500.2500, L100.0100 ####[facility] [address] [place], [address] Glucose [Mass/Vol] 159 mg/dL High 74-106 [facility] Comment on above: Result Comment: Fast ing Glucose result greater than or equal to 126 mg/dLsuggests DIABETES MELLITUS per A.D.A. criteria. Performed By: #### L 500.2500, L100.0100 ####[facility] [address] [place], [address] Potassium [Moles/Vol] 3.9 mmol/L Normal 3.5-5.1 [facility] Comment on above: Performed By: #### L 500.2500, L100.0100 ####[facility] [address] [place], [address] Sodium [Moles/Vol] 134 mmol/L Low 136-145 [facility] Comment on above: Performed By: #### L 500.2500, L100.0100 ####[facility] [address] [place], [address] Urea nitrogen [Mass/Vol] 34 mg/dL High 7-18 [facility] Comment on above: Performed By: #### L 500.2500, L100.0100 ####[facility] [address] [place], [address] CBC W/Diff, Automatedon 12-0 2-2024 Absolute Lymph 1.78 X10 3/uL Normal 0.83-4.51 [facility] Comment on above: Performed By: #### L 500.2500, L100.0100 ####[facility] [address] [place], [address] Absolute Neut 8.4 X10 3/uL High 2.0-7.7 [facility] Comment on above: Performed By: #### L 500.2500, L100.0100 ####[facility] [address] [place], [address] Basophils/100 WBC (Bld) 0.4 % Normal 0-1 [facility] Comment on above: Performed By: #### L 500.2500, L100.0100 ####[facility] [address] [place], [address] Eosinophils/100 WBC (Bld) 0.2 % Normal 0-5 [facility] Comment on above: Performed By: #### L 500.2500, L100.0100 ####[facility] [address] [place], [address] Erythrocyte distribution width (RBC) [Ratio] 12.5 % Normal 11.6-14.6 [facility] Comment on above: Performed By: #### L 500.2500, L100.0100 ####[facility] [address] [place], [address] Hematocrit (Bld) [Volume fraction] 34.6 % Low 37-47 [facility] Comment on above: Performed By: #### L 500.2500, L100.0100 ####[facility] [address] [place], [address] Hemoglobin (Bld) [Mass/Vol] 11.8 g/dL Low 12.0-15.0 [facility] Comment on above: Performed By: #### L 500.2500, L100.0100 ####[facility] [address] [place], [address] IG% 1.500 High 0.0-0.9 [facility] Comment on above: Result Comment: IG% - Immature Granulocytes (promyelocytes, myelocytes andmetamyelocytes) > 1% indicates that a LEFT SHIFT is Present. Performed By: #### L 500.2500, L100.0100 ####[facility] [address] [place], [address] Lymphocytes/100 WBC (Bld) 15.4 % Low 19-41 [facility] Comment on above: Performed By: #### L 500.2500, L100.0100 ####[facility] [address] [place], [address] MCH (RBC) [Entitic mass] 31.3 pg Normal 27.0-32.0 [facility] Comment on above: Performed By: #### L 500.2500, L100.0100 ####[facility] [address] [place], [address] MCHC (RBC) [Mass/Vol] 34.1 g/dL Normal 32-36 [facility] Comment on above: Performed By: #### L 500.2500, L100.0100 ####[facility] [address] [place], [address] MCV (RBC) [Entitic vol] 91.8 fL Normal 81-99 [facility] Comment on above: Performed By: #### L 500.2500, L100.0100 ####[facility] [address] [place], [address] Monocytes/100 WBC (Bld) 10.1 % High 0-10 [facility] Comment on above: Performed By: #### L 500.2500, L100.0100 ####[facility] [address] [place], [address] Neutrophils/100 WBC (Bld) 72.4 % High 47-70 [facility] Comment on above: Performed By: #### L 500.2500, L100.0100 ####[facility] [address] [place], [address] Nucleated RBC (Bld) [#/Vol] 0 10*3/uL Normal 0-5 [facility] Comment on above: Performed By: #### L 500.2500, L100.0100 ####[facility] [address] [place], [address] Platelet mean volume (Bld) [Entitic vol] 11.4 fL Normal 6.2-12.0 [facility] Comment on above: Performed By: #### L 500.2500, L100.0100 ####[facility] [address] [place], [address] Platelets (Bld) [#/Vol] 143 10*3/uL Low 150-450 [facility] Comment on above: Performed By: #### L 500.2500, L100.0100 ####[facility] [address] [place], [address] RBC (Bld) [#/Vol] 3.77 10*6/uL Low 4.2-5.4 [facility] Comment on above: Performed By: #### L 500.2500, L100.0100 ####[facility] [address] [place], [address] RDW SD 42.0 fl Normal 35.1-43.9 [facility] Comment on above: Performed By: #### L 500.2500, L100.0100 ####[facility] [address] [place], [address] WBC (Bld) [#/Vol] 11.6 10*3/uL High 4.4-11.0 [facility] Comment on above: Performed By: #### L 500.2500, L100.0100 ####[facility] [address] [place], [address] Urine Cultureon 08-12-2024 URC Normal [facility] Comment on above: Performed By: #### M 100.2200 ####[facility] [address] [place], [address] Basic Metabolic Profile (BMP )on 08-11-2024 BUN/CRE 35.2 RATIO High 10-20 [facility] Comment on above: Performed By: #### L 100.0500, L500.2500 ####[facility] [address] [place], [address] CA,Total 9.6 mg/dL Normal 8.5-10.1 [facility] Comment on above: Performed By: #### L 100.0500, L500.2500 ####[facility] [address] [place], [address] Chloride [Moles/Vol] 105 mmol/L Normal 98-107 [facility] Comment on above: Performed By: #### L 100.0500, L500.2500 ####[facility] [address] [place], [address] CO2 [Moles/Vol] 20.0 mmol/L Low 21.0-32.0 [facility] Comment on above: Performed By: #### L 100.0500, L500.2500 ####[facility] [address] [place], [address] Creatinine [Mass/Vol] 1.05 mg/dL High 0.55-1.02 [facility] Comment on above: Result Comment: The validity of the calculated GFR GFRAA in patients over70 years has not been determined. Clinical correlation isessential. Performed By: #### L 100.0500, L500.2500 ####[facility] [address] [place], [address] ECRCL 30.17 ml/min Normal [facility] Comment on above: Performed By: #### L 100.0500, L500.2500 ####[facility] [address] [place], [address] EST GFR - AA 63 mL/min Normal >60 [facility] Comment on above: Result Comment: Afri can [place] GFR Calc Performed By: #### L 100.0500, L500.2500 ####[facility] [address] [place], [address] GAP 9 Normal 5-15 [facility] Comment on above: Performed By: #### L 100.0500, L500.2500 ####[facility] [address] [place], [address] GFR/1.73 sq M.predicted among non-blacks MDRD (S/P/Bld) [Vol rate/Area] 52 mL/min/{1.73_m2} Low >60 [facility] Comment on above: Result Comment: Non- GFR Calc Performed By: #### L 100.0500, L500.2500 ####[facility] [address] [place], [address] Glucose [Mass/Vol] 163 mg/dL High 74-106 [facility] Comment on above: Result Comment: Fast ing Glucose result greater than or equal to 126 mg/dLsuggests DIABETES MELLITUS per A.D.A. criteria. Performed By: #### L 100.0500, L500.2500 ####[facility] [address] [place], [address] Potassium [Moles/Vol] 4.0 mmol/L Normal 3.5-5.1 [facility] Comment on above: Performed By: #### L 100.0500, L500.2500 ####[facility] [address] [place], [address] Sodium [Moles/Vol] 134 mmol/L Low 136-145 [facility] Comment on above: Performed By: #### L 100.0500, L500.2500 ####[facility] [address] [place], [address] Urea nitrogen [Mass/Vol] 37 mg/dL High 7-18 [facility] Comment on above: Performed By: #### L 100.0500, L500.2500 ####[facility] [address] [place], [address] CBC-Complete Blood Cnt No Di ffon 08-11-2024 Erythrocyte distribution width (RBC) [Ratio] 12.6 % Normal 11.6-14.6 [facility] Comment on above: Performed By: #### L 100.0500, L500.2500 ####[facility] [address] [place], [address] Hematocrit (Bld) [Volume fraction] 32.5 % Low 37-47 [facility] Comment on above: Performed By: #### L 100.0500, L500.2500 ####[facility] [address] [place], [address] Hemoglobin (Bld) [Mass/Vol] 11.1 g/dL Low 12.0-15.0 [facility] Comment on above: Performed By: #### L 100.0500, L500.2500 ####[facility] [address] [place], [address] MCH (RBC) [Entitic mass] 31.6 pg Normal 27.0-32.0 [facility] Comment on above: Performed By: #### L 100.0500, L500.2500 ####[facility] [address] [place], [address] MCHC (RBC) [Mass/Vol] 34.2 g/dL Normal 32-36 [facility] Comment on above: Performed By: #### L 100.0500, L500.2500 ####[facility] [address] [place], [address] MCV (RBC) [Entitic vol] 92.6 fL Normal 81-99 [facility] Comment on above: Performed By: #### L 100.0500, L500.2500 ####[facility] [address] [place], [address] Platelet mean volume (Bld) [Entitic vol] 11.1 fL Normal 6.2-12.0 [facility] Comment on above: Performed By: #### L 100.0500, L500.2500 ####[facility] [address] [place], [address] Platelets (Bld) [#/Vol] 109 10*3/uL Low 150-450 [facility] Comment on above: Performed By: #### L 100.0500, L500.2500 ####[facility] [address] [place], [address] RBC (Bld) [#/Vol] 3.51 10*6/uL Low 4.2-5.4 [facility] Comment on above: Performed By: #### L 100.0500, L500.2500 ####[facility] [address] [place], [address] RDW SD 42.8 fl Normal 35.1-43.9 [facility] Comment on above: Performed By: #### L 100.0500, L500.2500 ####[facility] [address] [place], [address] WBC (Bld) [#/Vol] 11.6 10*3/uL High 4.4-11.0 [facility] Comment on above: Performed By: #### L 100.0500, L500.2500 ####[facility] [address] [place], [address] Lactic Acidon 08-11-2024 Lactate [Moles/Vol] 1.3 mmol/L Normal 0.4-1.9 [facility] Comment on above: Performed By: #### L 503.6005 ####[facility] [address] [place], [address] 12 Lead EKGon 08-10-2024 12 Lead EKG Normal [facility] Abdomen/Pelvis W IV Cont ONL Yon 08-10-2024 Abdomen/Pelvis W IV Cont ONLY Normal [facility] CBC W/Diff, Automatedon 07-14 Absolute Lymph 0.65 X10 3/uL Low 0.83-4.51 [facility] Comment on above: Performed By: #### L 100.0100, L500.4050, L501.4020, L503.6005, L501.2450 ####[facility] [address] [place], [address] Absolute Neut 7.3 X10 3/uL Normal 2.0-7.7 [facility] Comment on above: Performed By: #### L 100.0100, L500.4050, L501.4020, L503.6005, L501.2450 ####[facility] [address] [place], [address] Basophils/100 WBC (Bld) 0.5 % Normal 0-1 [facility] Comment on above: Performed By: #### L 100.0100, L500.4050, L501.4020, L503.6005, L501.2450 ####[facility] [address] [place], [address] Eosinophils/100 WBC (Bld) 1.9 % Normal 0-5 [facility] Comment on above: Performed By: #### L 100.0100, L500.4050, L501.4020, L503.6005, L501.2450 ####[facility] [address] [place], [address] Erythrocyte distribution width (RBC) [Ratio] 12.3 % Normal 11.6-14.6 [facility] Comment on above: Performed By: #### L 100.0100, L500.4050, L501.4020, L503.6005, L501.2450 ####[facility] [address] [place], [address] Hematocrit (Bld) [Volume fraction] 35.3 % Low 37-47 [facility] Comment on above: Performed By: #### L 100.0100, L500.4050, L501.4020, L503.6005, L501.2450 ####[facility] [address] [place], [address] Hemoglobin (Bld) [Mass/Vol] 12.0 g/dL Normal 12.0-15.0 [facility] Comment on above: Performed By: #### L 100.0100, L500.4050, L501.4020, L503.6005, L501.2450 ####[facility] [address] [place], [address] IG% 0.600 Normal 0.0-0.9 [facility] Comment on above: Result Comment: IG% - Immature Granulocytes (promyelocytes, myelocytes andmetamyelocytes) > 1% indicates that a LEFT SHIFT is Present. Performed By: #### L 100.0100, L500.4050, L501.4020, L503.6005, L501.2450 ####[facility] [address] [place], [address] Lymphocytes/100 WBC (Bld) 7.6 % Low 19-41 [facility] Comment on above: Performed By: #### L 100.0100, L500.4050, L501.4020, L503.6005, L501.2450 ####[facility] [address] [place], [address] MCH (RBC) [Entitic mass] 31.6 pg Normal 27.0-32.0 [facility] Comment on above: Performed By: #### L 100.0100, L500.4050, L501.4020, L503.6005, L501.2450 ####[facility] [address] [place], [address] MCHC (RBC) [Mass/Vol] 34.0 g/dL Normal 32-36 [facility] Comment on above: Performed By: #### L 100.0100, L500.4050, L501.4020, L503.6005, L501.2450 ####[facility] [address] [place], [address] MCV (RBC) [Entitic vol] 92.9 fL Normal 81-99 [facility] Comment on above: Performed By: #### L 100.0100, L500.4050, L501.4020, L503.6005, L501.2450 ####[facility] [address] [place], [address] Monocytes/100 WBC (Bld) 4.1 % Normal 0-10 [facility] Comment on above: Performed By: #### L 100.0100, L500.4050, L501.4020, L503.6005, L501.2450 ####[facility] [address] [place], [address] Neutrophils/100 WBC (Bld) 85.3 % High 47-70 [facility] Comment on above: Performed By: #### L 100.0100, L500.4050, L501.4020, L503.6005, L501.2450 ####[facility] [address] [place], [address] Nucleated RBC (Bld) [#/Vol] 0 10*3/uL Normal 0-5 [facility] Comment on above: Performed By: #### L 100.0100, L500.4050, L501.4020, L503.6005, L501.2450 ####[facility] [address] [place], [address] Platelet mean volume (Bld) [Entitic vol] 11.0 fL Normal 6.2-12.0 [facility] Comment on above: Performed By: #### L 100.0100, L500.4050, L501.4020, L503.6005, L501.2450 ####[facility] [address] [place], [address] Platelets (Bld) [#/Vol] 113 10*3/uL Low 150-450 [facility] Comment on above: Performed By: #### L 100.0100, L500.4050, L501.4020, L503.6005, L501.2450 ####[facility] [address] [place], [address] RBC (Bld) [#/Vol] 3.80 10*6/uL Low 4.2-5.4 [facility] Comment on above: Performed By: #### L 100.0100, L500.4050, L501.4020, L503.6005, L501.2450 ####[facility] [address] [place], [address] RDW SD 42.0 fl Normal 35.1-43.9 [facility] Comment on above: Performed By: #### L 100.0100, L500.4050, L501.4020, L503.6005, L501.2450 ####[facility] [address] [place], [address] WBC (Bld) [#/Vol] 8.6 10*3/uL Normal 4.4-11.0 [facility] Comment on above: Performed By: #### L 100.0100, L500.4050, L501.4020, L503.6005, L501.2450 ####[facility] [address] [place], [address] Chest PA and Lateralon 08-10 Chest PA and Lateral Normal [facility] Comprehensive Metabolic Prof ilon 08-10-2024 Albumin [Mass/Vol] 2.8 g/dL Low 3.2-5.0 [facility] Comment on above: Order Comment: 'TROP ' Serial specimen #1, #2 or #3: 1 Performed By: #### L 100.0100, L500.4050, L501.4020, L503.6005, L501.2450 ####[facility] [address] [place], [address] Albumin/Globulin [Mass ratio] 0.8 {ratio} Low 0.9-2.4 [facility] Comment on above: Order Comment: 'TROP ' Serial specimen #1, #2 or #3: 1 Performed By: #### L 100.0100, L500.4050, L501.4020, L503.6005, L501.2450 ####[facility] [address] [place], [address] ALK P 149 U/L High 45-117 [facility] Comment on above: Order Comment: 'TROP ' Serial specimen #1, #2 or #3: 1 Performed By: #### L 100.0100, L500.4050, L501.4020, L503.6005, L501.2450 ####[facility] [address] [place], [address] ALT [Catalytic activity/Vol] 45 U/L Normal 13-56 [facility] Comment on above: Order Comment: 'TROP ' Serial specimen #1, #2 or #3: 1 Performed By: #### L 100.0100, L500.4050, L501.4020, L503.6005, L501.2450 ####[facility] [address] [place], [address] AST [Catalytic activity/Vol] 43 U/L High 15-37 [facility] Comment on above: Order Comment: 'TROP ' Serial specimen #1, #2 or #3: 1 Performed By: #### L 100.0100, L500.4050, L501.4020, L503.6005, L501.2450 ####[facility] [address] [place], [address] Bilirubin [Mass/Vol] 0.60 mg/dL Normal 0.20-1.00 [facility] Comment on above: Order Comment: 'TROP ' Serial specimen #1, #2 or #3: 1 Result Comment: For patients on eltrombopag therapy, use of Dimension Lester TBIL is not recommended. Performed By: #### L 100.0100, L500.4050, L501.4020, L503.6005, L501.2450 ####[facility] [address] [place], [address] BUN/CRE 31.9 RATIO High 10-20 [facility] Comment on above: Order Comment: 'TROP ' Serial specimen #1, #2 or #3: 1 Performed By: #### L 100.0100, L500.4050, L501.4020, L503.6005, L501.2450 ####[facility] [address] [place], [address] CA,Total 10.0 mg/dL Normal 8.5-10.1 [facility] Comment on above: Order Comment: 'TROP ' Serial specimen #1, #2 or #3: 1 Performed By: #### L 100.0100, L500.4050, L501.4020, L503.6005, L501.2450 ####[facility] [address] [place], [address] Chloride [Moles/Vol] 101 mmol/L Normal 98-107 [facility] Comment on above: Order Comment: 'TROP ' Serial specimen #1, #2 or #3: 1 Performed By: #### L 100.0100, L500.4050, L501.4020, L503.6005, L501.2450 ####[facility] [address] [place], [address] CO2 [Moles/Vol] 22.0 mmol/L Normal 21.0-32.0 [facility] Comment on above: Order Comment: 'TROP ' Serial specimen #1, #2 or #3: 1 Performed By: #### L 100.0100, L500.4050, L501.4020, L503.6005, L501.2450 ####[facility] [address] [place], [address] Creatinine [Mass/Vol] 1.35 mg/dL High 0.55-1.02 [facility] Comment on above: Order Comment: 'TROP ' Serial specimen #1, #2 or #3: 1 Result Comment: The validity of the calculated GFR GFRAA in patients over70 years has not been determined. Clinical correlation isessential. Performed By: #### L 100.0100, L500.4050, L501.4020, L503.6005, L501.2450 ####[facility] [address] [place], [address] ECRCL 23.54 ml/min Normal [facility] Comment on above: Order Comment: 'TROP ' Serial specimen #1, #2 or #3: 1 Performed By: #### L 100.0100, L500.4050, L501.4020, L503.6005, L501.2450 ####[facility] [address] [place], [address] EST GFR - AA 48 mL/min Low >60 [facility] Comment on above: Order Comment: 'TROP ' Serial specimen #1, #2 or #3: 1 Result Comment: Afri can [place]uran GFR Calc Performed By: #### L 100.0100, L500.4050, L501.4020, L503.6005, L501.2450 ####[facility] [address] [place], [address] GAP 9 Normal 5-15 [facility] Comment on above: Order Comment: 'TROP ' Serial specimen #1, #2 or #3: 1 Performed By: #### L 100.0100, L500.4050, L501.4020, L503.6005, L501.2450 ####[facility] [address] [place], [address] GFR/1.73 sq M.predicted among non-blacks MDRD (S/P/Bld) [Vol rate/Area] 39 mL/min/{1.73_m2} Low >60 [facility] Comment on above: Order Comment: 'TROP ' Serial specimen #1, #2 or #3: 1 Result Comment: Non- GFR Calc Performed By: #### L 100.0100, L500.4050, L501.4020, L503.6005, L501.2450 ####[facility] [address] [place], [address] Globulin (S) [Mass/Vol] 3.7 g/dL Normal 2.2-4.2 [facility] Comment on above: Order Comment: 'TROP ' Serial specimen #1, #2 or #3: 1 Performed By: #### L 100.0100, L500.4050, L501.4020, L503.6005, L501.2450 ####[facility] [address] [place], [address] Glucose [Mass/Vol] 191 mg/dL High 74-106 [facility] Comment on above: Order Comment: 'TROP ' Serial specimen #1, #2 or #3: 1 Result Comment: Fast ing Glucose result greater than or equal to 126 mg/dLsuggests DIABETES MELLITUS per A.D.A. criteria. Performed By: #### L 100.0100, L500.4050, L501.4020, L503.6005, L501.2450 ####[facility] [address] [place], [address] Potassium [Moles/Vol] 4.5 mmol/L Normal 3.5-5.1 [facility] Comment on above: Order Comment: 'TROP ' Serial specimen #1, #2 or #3: 1 Performed By: #### L 100.0100, L500.4050, L501.4020, L503.6005, L501.2450 ####[facility] [address] [place], [address] Sodium [Moles/Vol] 132 mmol/L Low 136-145 [facility] Comment on above: Order Comment: 'TROP ' Serial specimen #1, #2 or #3: 1 Performed By: #### L 100.0100, L500.4050, L501.4020, L503.6005, L501.2450 ####[facility] [address] [place], [address] T PROT 6.5 g/dL Normal 6.4-8.2 [facility] Comment on above: Order Comment: 'TROP ' Serial specimen #1, #2 or #3: 1 Performed By: #### L 100.0100, L500.4050, L501.4020, L503.6005, L501.2450 ####[facility] [address] [place], [address] Urea nitrogen [Mass/Vol] 43 mg/dL High 7-18 [facility] Comment on above: Order Comment: 'TROP ' Serial specimen #1, #2 or #3: 1 Performed By: #### L 100.0100, L500.4050, L501.4020, L503.6005, L501.2450 ####[facility] [address] [place], [address] Emergency Department Summary on 08-10-2024 Emergency Department Summary Normal [facility] H AND P Exam - Hospitaliston 08-10-2024 H&P Exam - Hospitalist Normal [facility] L501.4020on 08-10-2024 TROPONIN-I HS 599 pg/mL Invalid Interpretation Code 3.0-54.0 [facility] Comment on above: Order Comment: 'TROP ' Serial specimen #1, #2 or #3: 2 Result Comment: Crit ical Result(s) Called at: 22:15:46 08/10/2024 by: JONATAN. Results read back by Eleazar May Please Note: New Test Units and Gender Specific Reference Ranges. For more information see Policy Stat Procedure Lester High Sensitivity Troponin (TNIH) and attachments. Performed By: #### L 501.4020 ####[facility] [address] [place], [address] TROPONIN-I HS 639 pg/mL Invalid Interpretation Code 3.0-54.0 [facility] Comment on above: Order Comment: 'TROP ' Serial specimen #1, #2 or #3: 1 Result Comment: Crit ical Result(s) Called at: 20:36:30 08/10/2024 by: JONATAN. Results read back by virginia ROGERS Please Note: New Test Units and Gender Specific Reference Ranges. For more information see Policy Stat Procedure Lester High Sensitivity Troponin (TNIH) and attachments. Performed By: #### L 100.0100, L500.4050, L501.4020, L503.6005, L501.2450 ####[facility] [address] [place], [address] Lactic Acidon 08-10-2024 Lactate [Moles/Vol] 2.8 mmol/L Invalid Interpretation Code 0.4-1.9 [facility] Comment on above: Order Comment: Y Result Comment: Crit ical Result(s) Called at: 20:54:25 08/10/2024 by:Pierre Lara Rodrigo. Results read back by same. Performed By: #### L 100.0100, L500.4050, L501.4020, L503.6005, L501.2450 ####[facility] [address] [place], [address] Lipaseon 08-10-2024 Lipase [Catalytic activity/Vol] 16 U/L Normal 13-75 [facility] Comment on above: Order Comment: 'TROP ' Serial specimen #1, #2 or #3: 1 Result Comment: Orin bangura note:LIPASE revised reference range effective 22.New Lipase methodology. Expected to produce lower valuesthan the previous assay method.NEW Reference Range: 13 - 75 U/L Performed By: #### L 100.0100, L500.4050, L501.4020, L503.6005, L501.2450 ####[facility] [address] [place], [address] M100.678on 08-10-2024 M100.678 Pending SARS-CoV-2 (COVID 19) Negative INFLUENZA A Negative INFLUENZA B Negative RSV PCR Negative Normal [facility] Comment on above: Performed By: #### L 400.0001, M100.678 ####[facility] [address] [place], [address] Urinalysis, Completeon 08-10 BACTERIA 2+ /hpf Normal None Seen [facility] Comment on above: Order Comment: COLLE CTOR TO SPECIFY Performed By: #### L 400.0001, M100.678 ####[facility] [address] [place], [address] CAST,WBC 0-5 SEEN Normal None Seen [facility] Comment on above: Order Comment: COLLE CTOR TO SPECIFY Performed By: #### L 400.0001, M100.678 ####[facility] [address] [place], [address] EPI,SQUAMOUS 5-10 SEEN Normal 5-10 [facility] Comment on above: Order Comment: COLLE CTOR TO SPECIFY Performed By: #### L 400.0001, M100.678 ####[facility] [address] [place], [address] Mucus Ql (Urine sed) 2+ /hpf Normal [facility] Comment on above: Order Comment: COLLE CTOR TO SPECIFY Performed By: #### L 400.0001, M100.678 ####[facility] [address] [place], [address] RBC 10-25 SEEN Normal 0-5 [facility] Comment on above: Order Comment: COLLE CTOR TO SPECIFY Performed By: #### L 400.0001, M100.678 ####[facility] [address] [place], [address] WBC 50-100 SEEN Normal 0-5 [facility] Comment on above: Order Comment: COLLE CTOR TO SPECIFY Performed By: #### L 400.0001, M100.678 ####[facility] [address] [place], [address] Orthopedic Visit Reporton Orthopedic Visit Report Normal [facility] Shoulder min 2 Viewson 05-09 Shoulder min 2 Views Normal [facility] Basic Metabolic Profile (BMP )on 04-10-2024 BUN Normal 7-18 [facility] Comment on above: Result Comment: Canc elled via OM: Order cancelled - Patient discharged Performed By: #### L 100.0100, L500.2500 ####[facility] [address] [place], [address] BUN/CRE Normal 10-20 [facility] Comment on above: Result Comment: Canc elled via OM: Order cancelled - Patient discharged Performed By: #### L 100.0100, L500.2500 ####[facility] [address] [place], [address] CA,Total Normal 8.5-10.1 [facility] Comment on above: Result Comment: Canc elled via OM: Order cancelled - Patient discharged Performed By: #### L 100.0100, L500.2500 ####[facility] [address] [place], [address] CL Normal 98-107 [facility] Comment on above: Result Comment: Canc elled via OM: Order cancelled - Patient discharged Performed By: #### L 100.0100, L500.2500 ####[facility] [address] [place], [address] CO2 Normal 21.0-32.0 [facility] Comment on above: Result Comment: Canc elled via OM: Order cancelled - Patient discharged Performed By: #### L 100.0100, L500.2500 ####[facility] [address] [place], [address] CREAT,SERUM Normal 0.55-1.02 [facility] Comment on above: Result Comment: Canc elled via OM: Order cancelled - Patient discharged Performed By: #### L 100.0100, L500.2500 ####[facility] [address] [place], [address] EST GFR Normal >60 [facility] Comment on above: Result Comment: Canc elled via OM: Order cancelled - Patient discharged Performed By: #### L 100.0100, L500.2500 ####[facility] [address] [place], [address] EST GFR - AA Normal >60 [facility] Comment on above: Result Comment: Canc elled via OM: Order cancelled - Patient discharged Performed By: #### L 100.0100, L500.2500 ####[facility] [address] [place], [address] GAP Normal 5-15 [facility] Comment on above: Result Comment: Canc elled via OM: Order cancelled - Patient discharged Performed By: #### L 100.0100, L500.2500 ####[facility] [address] [place], [address] GLU Normal 74-106 [facility] Comment on above: Result Comment: Canc elled via OM: Order cancelled - Patient discharged Performed By: #### L 100.0100, L500.2500 ####[facility] [address] [place], [address] Potassium Normal 3.5-5.1 [facility] Comment on above: Result Comment: Canc elled via OM: Order cancelled - Patient discharged Performed By: #### L 100.0100, L500.2500 ####[facility] [address] [place], [address] Basic Metabolic Profile (BMP) Normal 136-145 [facility] Comment on above: Result Comment: Canc elled via OM: Order cancelled - Patient discharged Performed By: #### L 100.0100, L500.2500 ####[facility] [address] [place], [address] CBC W/Diff, Automatedon 07-3 Absolute Neut Normal 2.0-7.7 [facility] Comment on above: Result Comment: Canc elled via OM: Order cancelled - Patient discharged Performed By: #### L 100.0100, L500.2500 ####[facility] [address] [place], [address] HCT Normal 37-47 [facility] Comment on above: Result Comment: Canc elled via OM: Order cancelled - Patient discharged Performed By: #### L 100.0100, L500.2500 ####[facility] [address] [place], [address] HGB Normal 12.0-15.0 [facility] Comment on above: Result Comment: Canc elled via OM: Order cancelled - Patient discharged Performed By: #### L 100.0100, L500.2500 ####[facility] [address] [place], [address] MCH Normal 27.0-32.0 [facility] Comment on above: Result Comment: Canc elled via OM: Order cancelled - Patient discharged Performed By: #### L 100.0100, L500.2500 ####[facility] [address] [place], [address] MCHC Normal 32-36 [facility] Comment on above: Result Comment: Canc elled via OM: Order cancelled - Patient discharged Performed By: #### L 100.0100, L500.2500 ####[facility] [address] [place], [address] MCV Normal 81-99 [facility] Comment on above: Result Comment: Canc elled via OM: Order cancelled - Patient discharged Performed By: #### L 100.0100, L500.2500 ####[facility] [address] [place], [address] NEUT% Normal 47-70 [facility] Comment on above: Result Comment: Canc elled via OM: Order cancelled - Patient discharged Performed By: #### L 100.0100, L500.2500 ####[facility] [address] [place], [address] PLT Normal 150-450 [facility] Comment on above: Result Comment: Canc elled via OM: Order cancelled - Patient discharged Performed By: #### L 100.0100, L500.2500 ####[facility] [address] [place], [address] RBC Normal 4.2-5.4 [facility] Comment on above: Result Comment: Canc elled via OM: Order cancelled - Patient discharged Performed By: #### L 100.0100, L500.2500 ####[facility] [address] [place], [address] RDW CV Normal 11.6-14.6 [facility] Comment on above: Result Comment: Canc elled via OM: Order cancelled - Patient discharged Performed By: #### L 100.0100, L500.2500 ####[facility] [address] [place], [address] RDW SD Normal 35.1-43.9 [facility] Comment on above: Result Comment: Canc elled via OM: Order cancelled - Patient discharged Performed By: #### L 100.0100, L500.2500 ####[facility] [address] [place], [address] WBC Normal 4.4-11.0 [facility] Comment on above: Result Comment: Canc elled via OM: Order cancelled - Patient discharged Performed By: #### L 100.0100, L500.2500 ####[facility] [address] [place], [address] Basic Metabolic Profile (BMP )on 04-03-2024 BUN Normal 7-18 [facility] Comment on above: Result Comment: Canc elled via OM: Order cancelled - Patient discharged Performed By: #### L 100.0100, L500.2500 ####[facility] [address] [place], [address] BUN/CRE Normal 10-20 [facility] Comment on above: Result Comment: Canc elled via OM: Order cancelled - Patient discharged Performed By: #### L 100.0100, L500.2500 ####[facility] [address] [place], [address] CA,Total Normal 8.5-10.1 [facility] Comment on above: Result Comment: Canc elled via OM: Order cancelled - Patient discharged Performed By: #### L 100.0100, L500.2500 ####[facility] [address] [place], [address] CL Normal 98-107 [facility] Comment on above: Result Comment: Canc elled via OM: Order cancelled - Patient discharged Performed By: #### L 100.0100, L500.2500 ####[facility] [address] [place], [address] CO2 Normal 21.0-32.0 [facility] Comment on above: Result Comment: Canc elled via OM: Order cancelled - Patient discharged Performed By: #### L 100.0100, L500.2500 ####[facility] [address] [place], [address] CREAT,SERUM Normal 0.55-1.02 [facility] Comment on above: Result Comment: Canc elled via OM: Order cancelled - Patient discharged Performed By: #### L 100.0100, L500.2500 ####[facility] [address] [place], [address] EST GFR Normal >60 [facility] Comment on above: Result Comment: Canc elled via OM: Order cancelled - Patient discharged Performed By: #### L 100.0100, L500.2500 ####[facility] [address] [place], [address] EST GFR - AA Normal >60 [facility] Comment on above: Result Comment: Canc elled via OM: Order cancelled - Patient discharged Performed By: #### L 100.0100, L500.2500 ####[facility] [address] [place], [address] GAP Normal 5-15 [facility] Comment on above: Result Comment: Canc elled via OM: Order cancelled - Patient discharged Performed By: #### L 100.0100, L500.2500 ####[facility] [address] [place], [address] GLU Normal 74-106 [facility] Comment on above: Result Comment: Canc elled via OM: Order cancelled - Patient discharged Performed By: #### L 100.0100, L500.2500 ####[facility] [address] [place], [address] Potassium Normal 3.5-5.1 [facility] Comment on above: Result Comment: Canc elled via OM: Order cancelled - Patient discharged Performed By: #### L 100.0100, L500.2500 ####[facility] [address] [place], [address] Basic Metabolic Profile (BMP) Normal 136-145 [facility] Comment on above: Result Comment: Canc elled via OM: Order cancelled - Patient discharged Performed By: #### L 100.0100, L500.2500 ####[facility] [address] [place], [address] CBC W/Diff, Automatedon 07-2 Absolute Neut Normal 2.0-7.7 [facility] Comment on above: Result Comment: Canc elled via OM: Order cancelled - Patient discharged Performed By: #### L 100.0100, L500.2500 ####[facility] [address] [place], [address] HCT Normal 37-47 [facility] Comment on above: Result Comment: Canc elled via OM: Order cancelled - Patient discharged Performed By: #### L 100.0100, L500.2500 ####[facility] [address] [place], [address] HGB Normal 12.0-15.0 [facility] Comment on above: Result Comment: Canc elled via OM: Order cancelled - Patient discharged Performed By: #### L 100.0100, L500.2500 ####[facility] [address] [place], [address] MCH Normal 27.0-32.0 [facility] Comment on above: Result Comment: Canc elled via OM: Order cancelled - Patient discharged Performed By: #### L 100.0100, L500.2500 ####[facility] [address] [place], [address] MCHC Normal 32-36 [facility] Comment on above: Result Comment: Canc elled via OM: Order cancelled - Patient discharged Performed By: #### L 100.0100, L500.2500 ####[facility] [address] [place], [address] MCV Normal 81-99 [facility] Comment on above: Result Comment: Canc elled via OM: Order cancelled - Patient discharged Performed By: #### L 100.0100, L500.2500 ####[facility] [address] [place], [address] NEUT% Normal 47-70 [facility] Comment on above: Result Comment: Canc elled via OM: Order cancelled - Patient discharged Performed By: #### L 100.0100, L500.2500 ####[facility] [address] [place], [address] PLT Normal 150-450 [facility] Comment on above: Result Comment: Canc elled via OM: Order cancelled - Patient discharged Performed By: #### L 100.0100, L500.2500 ####[facility] [address] [place], [address] RBC Normal 4.2-5.4 [facility] Comment on above: Result Comment: Canc elled via OM: Order cancelled - Patient discharged Performed By: #### L 100.0100, L500.2500 ####[facility] [address] [place], [address] RDW CV Normal 11.6-14.6 [facility] Comment on above: Result Comment: Canc elled via OM: Order cancelled - Patient discharged Performed By: #### L 100.0100, L500.2500 ####[facility] [address] [place], [address] RDW SD Normal 35.1-43.9 [facility] Comment on above: Result Comment: Canc elled via OM: Order cancelled - Patient discharged Performed By: #### L 100.0100, L500.2500 ####[facility] [address] [place], [address] WBC Normal 4.4-11.0 [facility] Comment on above: Result Comment: Canc elled via OM: Order cancelled - Patient discharged Performed By: #### L 100.0100, L500.2500 ####[facility] [address] [place], [address] Basic Metabolic Profile (BMP )on 03-27-2024 BUN Normal 7-18 [facility] Comment on above: Result Comment: Canc elled via OM: Order cancelled - Patient discharged Performed By: #### L 500.2500, L100.0100 ####[facility] [address] [place], [address] BUN/CRE Normal 10-20 [facility] Comment on above: Result Comment: Canc elled via OM: Order cancelled - Patient discharged Performed By: #### L 500.2500, L100.0100 ####[facility] [address] [place], [address] CA,Total Normal 8.5-10.1 [facility] Comment on above: Result Comment: Canc elled via OM: Order cancelled - Patient discharged Performed By: #### L 500.2500, L100.0100 ####[facility] [address] [place], [address] CL Normal 98-107 [facility] Comment on above: Result Comment: Canc elled via OM: Order cancelled - Patient discharged Performed By: #### L 500.2500, L100.0100 ####[facility] [address] [place], [address] CO2 Normal 21.0-32.0 [facility] Comment on above: Result Comment: Canc elled via OM: Order cancelled - Patient discharged Performed By: #### L 500.2500, L100.0100 ####[facility] [address] [place], [address] CREAT,SERUM Normal 0.55-1.02 [facility] Comment on above: Result Comment: Canc elled via OM: Order cancelled - Patient discharged Performed By: #### L 500.2500, L100.0100 ####[facility] [address] [place], [address] EST GFR Normal >60 [facility] Comment on above: Result Comment: Canc elled via OM: Order cancelled - Patient discharged Performed By: #### L 500.2500, L100.0100 ####[facility] [address] [place], [address] EST GFR - AA Normal >60 [facility] Comment on above: Result Comment: Canc elled via OM: Order cancelled - Patient discharged Performed By: #### L 500.2500, L100.0100 ####[facility] [address] [place], [address] GAP Normal 5-15 [facility] Comment on above: Result Comment: Canc elled via OM: Order cancelled - Patient discharged Performed By: #### L 500.2500, L100.0100 ####[facility] [address] [place], [address] GLU Normal 74-106 [facility] Comment on above: Result Comment: Canc elled via OM: Order cancelled - Patient discharged Performed By: #### L 500.2500, L100.0100 ####[facility] [address] [place], [address] Potassium Normal 3.5-5.1 [facility] Comment on above: Result Comment: Canc elled via OM: Order cancelled - Patient discharged Performed By: #### L 500.2500, L100.0100 ####[facility] [address] [place], [address] Basic Metabolic Profile (BMP) Normal 136-145 [facility] Comment on above: Result Comment: Canc elled via OM: Order cancelled - Patient discharged Performed By: #### L 500.2500, L100.0100 ####[facility] [address] [place], [address] CBC W/Diff, Automatedon 07- Absolute Neut Normal 2.0-7.7 [facility] Comment on above: Result Comment: Canc elled via OM: Order cancelled - Patient discharged Performed By: #### L 500.2500, L100.0100 ####[facility] [address] [place], [address] HCT Normal 37-47 [facility] Comment on above: Result Comment: Canc elled via OM: Order cancelled - Patient discharged Performed By: #### L 500.2500, L100.0100 ####[facility] [address] [place], [address] HGB Normal 12.0-15.0 [facility] Comment on above: Result Comment: Canc elled via OM: Order cancelled - Patient discharged Performed By: #### L 500.2500, L100.0100 ####[facility] [address] [place], [address] MCH Normal 27.0-32.0 [facility] Comment on above: Result Comment: Canc elled via OM: Order cancelled - Patient discharged Performed By: #### L 500.2500, L100.0100 ####[facility] [address] [place], [address] MCHC Normal 32-36 [facility] Comment on above: Result Comment: Canc elled via OM: Order cancelled - Patient discharged Performed By: #### L 500.2500, L100.0100 ####[facility] [address] [place], [address] MCV Normal 81-99 [facility] Comment on above: Result Comment: Canc elled via OM: Order cancelled - Patient discharged Performed By: #### L 500.2500, L100.0100 ####[facility] [address] [place], [address] NEUT% Normal 47-70 [facility] Comment on above: Result Comment: Canc elled via OM: Order cancelled - Patient discharged Performed By: #### L 500.2500, L100.0100 ####[facility] [address] [place], [address] PLT Normal 150-450 [facility] Comment on above: Result Comment: Canc elled via OM: Order cancelled - Patient discharged Performed By: #### L 500.2500, L100.0100 ####[facility] [address] [place], [address] RBC Normal 4.2-5.4 [facility] Comment on above: Result Comment: Canc elled via OM: Order cancelled - Patient discharged Performed By: #### L 500.2500, L100.0100 ####[facility] [address] [place], [address] RDW CV Normal 11.6-14.6 [facility] Comment on above: Result Comment: Canc elled via OM: Order cancelled - Patient discharged Performed By: #### L 500.2500, L100.0100 ####[facility] [address] [place], [address] RDW SD Normal 35.1-43.9 [facility] Comment on above: Result Comment: Canc elled via OM: Order cancelled - Patient discharged Performed By: #### L 500.2500, L100.0100 ####[facility] [address] [place], [address] WBC Normal 4.4-11.0 [facility] Comment on above: Result Comment: Canc elled via OM: Order cancelled - Patient discharged Performed By: #### L 500.2500, L100.0100 ####[facility] [address] [place], [address] Orthopedic Visit Reporton Orthopedic Visit Report Normal [facility] Shoulder min 2 Viewson 03-25 Shoulder min 2 Views Normal [facility] Basic Metabolic Profile (BMP )on 03-20-2024 BUN Normal 7-18 [facility] Comment on above: Result Comment: Canc elled via OM: Order cancelled - Patient discharged Performed By: #### L 100.0100, L500.2500 ####[facility] [address] [place], [address] BUN/CRE Normal 10-20 [facility] Comment on above: Result Comment: Canc elled via OM: Order cancelled - Patient discharged Performed By: #### L 100.0100, L500.2500 ####[facility] [address] [place], [address] CA,Total Normal 8.5-10.1 [facility] Comment on above: Result Comment: Canc elled via OM: Order cancelled - Patient discharged Performed By: #### L 100.0100, L500.2500 ####[facility] [address] [place], [address] CL Normal 98-107 [facility] Comment on above: Result Comment: Canc elled via OM: Order cancelled - Patient discharged Performed By: #### L 100.0100, L500.2500 ####[facility] [address] [place], [address] CO2 Normal 21.0-32.0 [facility] Comment on above: Result Comment: Canc elled via OM: Order cancelled - Patient discharged Performed By: #### L 100.0100, L500.2500 ####[facility] [address] [place], [address] CREAT,SERUM Normal 0.55-1.02 [facility] Comment on above: Result Comment: Canc elled via OM: Order cancelled - Patient discharged Performed By: #### L 100.0100, L500.2500 ####[facility] [address] [place], [address] EST GFR Normal >60 [facility] Comment on above: Result Comment: Canc elled via OM: Order cancelled - Patient discharged Performed By: #### L 100.0100, L500.2500 ####[facility] [address] [place], [address] EST GFR - AA Normal >60 [facility] Comment on above: Result Comment: Canc elled via OM: Order cancelled - Patient discharged Performed By: #### L 100.0100, L500.2500 ####[facility] [address] [place], [address] GAP Normal 5-15 [facility] Comment on above: Result Comment: Canc elled via OM: Order cancelled - Patient discharged Performed By: #### L 100.0100, L500.2500 ####[facility] [address] [place], [address] GLU Normal 74-106 [facility] Comment on above: Result Comment: Canc elled via OM: Order cancelled - Patient discharged Performed By: #### L 100.0100, L500.2500 ####[facility] [address] [place], [address] Potassium Normal 3.5-5.1 [facility] Comment on above: Result Comment: Canc elled via OM: Order cancelled - Patient discharged Performed By: #### L 100.0100, L500.2500 ####[facility] [address] [place], [address] Basic Metabolic Profile (BMP) Normal 136-145 [facility] Comment on above: Result Comment: Canc elled via OM: Order cancelled - Patient discharged Performed By: #### L 100.0100, L500.2500 ####[facility] [address] [place], [address] CBC W/Diff, Automatedon 07- 0-2023 Absolute Neut Normal 2.0-7.7 [facility] Comment on above: Result Comment: Canc elled via OM: Order cancelled - Patient discharged Performed By: #### L 100.0100, L500.2500 ####[facility] [address] [place], [address] HCT Normal 37-47 [facility] Comment on above: Result Comment: Canc elled via OM: Order cancelled - Patient discharged Performed By: #### L 100.0100, L500.2500 ####[facility] [address] [place], [address] HGB Normal 12.0-15.0 [facility] Comment on above: Result Comment: Canc elled via OM: Order cancelled - Patient discharged Performed By: #### L 100.0100, L500.2500 ####[facility] [address] [place], [address] MCH Normal 27.0-32.0 [facility] Comment on above: Result Comment: Canc elled via OM: Order cancelled - Patient discharged Performed By: #### L 100.0100, L500.2500 ####[facility] [address] [place], [address] MCHC Normal 32-36 [facility] Comment on above: Result Comment: Canc elled via OM: Order cancelled - Patient discharged Performed By: #### L 100.0100, L500.2500 ####[facility] [address] [place], [address] MCV Normal 81-99 [facility] Comment on above: Result Comment: Canc elled via OM: Order cancelled - Patient discharged Performed By: #### L 100.0100, L500.2500 ####[facility] [address] [place], [address] NEUT% Normal 47-70 [facility] Comment on above: Result Comment: Canc elled via OM: Order cancelled - Patient discharged Performed By: #### L 100.0100, L500.2500 ####[facility] [address] [place], [address] PLT Normal 150-450 [facility] Comment on above: Result Comment: Canc elled via OM: Order cancelled - Patient discharged Performed By: #### L 100.0100, L500.2500 ####[facility] [address] [place], [address] RBC Normal 4.2-5.4 [facility] Comment on above: Result Comment: Canc elled via OM: Order cancelled - Patient discharged Performed By: #### L 100.0100, L500.2500 ####[facility] [address] [place], [address] RDW CV Normal 11.6-14.6 [facility] Comment on above: Result Comment: Canc elled via OM: Order cancelled - Patient discharged Performed By: #### L 100.0100, L500.2500 ####[facility] [address] [place], [address] RDW SD Normal 35.1-43.9 [facility] Comment on above: Result Comment: Canc elled via OM: Order cancelled - Patient discharged Performed By: #### L 100.0100, L500.2500 ####[facility] [address] [place], [address] WBC Normal 4.4-11.0 [facility] Comment on above: Result Comment: Canc elled via OM: Order cancelled - Patient discharged Performed By: #### L 100.0100, L500.2500 ####[facility] [address] [place], [address] Bedside Glucoseon 03-15-2024 FINGERSTICK GLU 86 mg/dL Normal 74-106 [facility] Comment on above: Result Comment: TIGIST GEMENT OF PATIENT CARE PER NURSING PROTOCOL Performed By: #### L 501.080 ####[facility] [address] [place], [address] Bedside Glucoseon 03-14-2024 FINGERSTICK GLU 149 mg/dL High 74-106 [facility] Comment on above: Result Comment: TIGIST GEMENT OF PATIENT CARE PER NURSING PROTOCOL Performed By: #### L 501.080 ####[facility] [address] [place], [address] FINGERSTICK GLU 76 mg/dL Normal 74-106 [facility] Comment on above: Result Comment: TIGIST GEMENT OF PATIENT CARE PER NURSING PROTOCOL Performed By: #### L 501.080 ####[facility] [address] [place], [address] Basic Metabolic Profile (BMP )on 03-13-2024 BUN/CRE 34.9 RATIO High 10-20 [facility] Comment on above: Performed By: #### L 500.2500, L100.0100 ####[facility] [address] [place], [address] CA,Total 10.0 mg/dL Normal 8.5-10.1 [facility] Comment on above: Performed By: #### L 500.2500, L100.0100 ####[facility] [address] [place], [address] Chloride [Moles/Vol] 108 mmol/L High 98-107 [facility] Comment on above: Performed By: #### L 500.2500, L100.0100 ####[facility] [address] [place], [address] CO2 [Moles/Vol] 24.0 mmol/L Normal 21.0-32.0 [facility] Comment on above: Performed By: #### L 500.2500, L100.0100 ####[facility] [address] [place], [address] Creatinine [Mass/Vol] 0.89 mg/dL Normal 0.55-1.02 [facility] Comment on above: Result Comment: The validity of the calculated GFR GFRAA in patients over70 years has not been determined. Clinical correlation isessential. Performed By: #### L 500.2500, L100.0100 ####[facility] [address] [place], [address] ECRCL 35.25 ml/min Normal [facility] Comment on above: Performed By: #### L 500.2500, L100.0100 ####[facility] [address] [place], [address] EST GFR - AA 77 mL/min Normal >60 [facility] Comment on above: Result Comment: Afri can [place] GFR Calc Performed By: #### L 500.2500, L100.0100 ####[facility] [address] [place], [address] GAP 4 Low 5-15 [facility] Comment on above: Performed By: #### L 500.2500, L100.0100 ####[facility] [address] [place], [address] GFR/1.73 sq M.predicted among non-blacks MDRD (S/P/Bld) [Vol rate/Area] 64 mL/min/{1.73_m2} Normal >60 [facility] Comment on above: Result Comment: Non- GFR Calc Performed By: #### L 500.2500, L100.0100 ####[facility] [address] [place], [address] Glucose [Mass/Vol] 94 mg/dL Normal 74-106 [facility] Comment on above: Performed By: #### L 500.2500, L100.0100 ####[facility] [address] [place], [address] Potassium [Moles/Vol] 4.7 mmol/L Normal 3.5-5.1 [facility] Comment on above: Performed By: #### L 500.2500, L100.0100 ####[facility] [address] [place], [address] Sodium [Moles/Vol] 136 mmol/L Normal 136-145 [facility] Comment on above: Performed By: #### L 500.2500, L100.0100 ####[facility] [address] [place], [address] Urea nitrogen [Mass/Vol] 31 mg/dL High 7-18 [facility] Comment on above: Performed By: #### L 500.2500, L100.0100 ####[facility] [address] [place], [address] Bedside Glucoseon 03-13-2024 FINGERSTICK GLU 98 mg/dL Normal 74-106 [facility] Comment on above: Result Comment: TIGIST RODRIGEZ OF PATIENT CARE PER NURSING PROTOCOL Performed By: #### L 501.080 ####[facility] [address] [place], [address] CBC W/Diff, Automatedon 07-0 Absolute Lymph 2.42 X10 3/uL Normal 0.83-4.51 [facility] Comment on above: Performed By: #### L 500.2500, L100.0100 ####[facility] [address] [place], [address] Absolute Neut 2.4 X10 3/uL Normal 2.0-7.7 [facility] Comment on above: Performed By: #### L 500.2500, L100.0100 ####[facility] [address] [place], [address] Basophils/100 WBC (Bld) 0.4 % Normal 0-1 [facility] Comment on above: Performed By: #### L 500.2500, L100.0100 ####[facility] [address] [place], [address] Eosinophils/100 WBC (Bld) 3.8 % Normal 0-5 [facility] Comment on above: Performed By: #### L 500.2500, L100.0100 ####[facility] [address] [place], [address] Erythrocyte distribution width (RBC) [Ratio] 13.4 % Normal 11.6-14.6 [facility] Comment on above: Performed By: #### L 500.2500, L100.0100 ####[facility] [address] [place], [address] Hematocrit (Bld) [Volume fraction] 31.6 % Low 37-47 [facility] Comment on above: Performed By: #### L 500.2500, L100.0100 ####[facility] [address] [place], [address] Hemoglobin (Bld) [Mass/Vol] 10.2 g/dL Low 12.0-15.0 [facility] Comment on above: Performed By: #### L 500.2500, L100.0100 ####[facility] [address] [place], [address] IG% 0.400 Normal 0.0-0.9 [facility] Comment on above: Result Comment: IG% - Immature Granulocytes (promyelocytes, myelocytes andmetamyelocytes) > 1% indicates that a LEFT SHIFT is Present. Performed By: #### L 500.2500, L100.0100 ####[facility] [address] [place], [address] Lymphocytes/100 WBC (Bld) 45.8 % High 19-41 [facility] Comment on above: Performed By: #### L 500.2500, L100.0100 ####[facility] [address] [place], [address] MCH (RBC) [Entitic mass] 29.5 pg Normal 27.0-32.0 [facility] Comment on above: Performed By: #### L 500.2500, L100.0100 ####[facility] [address] [place], [address] MCHC (RBC) [Mass/Vol] 32.3 g/dL Normal 32-36 [facility] Comment on above: Performed By: #### L 500.2500, L100.0100 ####[facility] [address] [place], [address] MCV (RBC) [Entitic vol] 91.3 fL Normal 81-99 [facility] Comment on above: Performed By: #### L 500.2500, L100.0100 ####[facility] [address] [place], [address] Monocytes/100 WBC (Bld) 4.9 % Normal 0-10 [facility] Comment on above: Performed By: #### L 500.2500, L100.0100 ####[facility] [address] [place], [address] Neutrophils/100 WBC (Bld) 44.7 % Low 47-70 [facility] Comment on above: Performed By: #### L 500.2500, L100.0100 ####[facility] [address] [place], [address] Nucleated RBC (Bld) [#/Vol] 0 10*3/uL Normal 0-5 [facility] Comment on above: Performed By: #### L 500.2500, L100.0100 ####[facility] [address] [place], [address] Platelet mean volume (Bld) [Entitic vol] 9.4 fL Normal 6.2-12.0 [facility] Comment on above: Performed By: #### L 500.2500, L100.0100 ####[facility] [address] [place], [address] Platelets (Bld) [#/Vol] 244 10*3/uL Normal 150-450 [facility] Comment on above: Performed By: #### L 500.2500, L100.0100 ####[facility] [address] [place], [address] RBC (Bld) [#/Vol] 3.46 10*6/uL Low 4.2-5.4 [facility] Comment on above: Performed By: #### L 500.2500, L100.0100 ####[facility] [address] [place], [address] RDW SD 44.6 fl High 35.1-43.9 [facility] Comment on above: Performed By: #### L 500.2500, L100.0100 ####[facility] [address] [place], [address] WBC (Bld) [#/Vol] 5.3 10*3/uL Normal 4.4-11.0 [facility] Comment on above: Performed By: #### L 500.2500, L100.0100 ####[facility] [address] [place], [address] Bedside Glucoseon 03-12-2024 FINGERSTICK GLU 83 mg/dL Normal 74-106 [facility] Comment on above: Result Comment: TIGIST GEMENT OF PATIENT CARE PER NURSING PROTOCOL Performed By: #### L 501.080 ####[facility] [address] [place], [address] Bedside Glucoseon 03-11-2024 FINGERSTICK GLU 90 mg/dL Normal 74-106 [facility] Comment on above: Result Comment: TIGIST GEMENT OF PATIENT CARE PER NURSING PROTOCOL Performed By: #### L 501.080 ####[facility] [address] [place], [address] Bedside Glucoseon 03-10-2024 FINGERSTICK GLU 104 mg/dL Normal 74-106 [facility] Comment on above: Result Comment: TIGIST GEMENT OF PATIENT CARE PER NURSING PROTOCOL Performed By: #### L 501.080 ####[facility] [address] [place], [address] Bedside Glucoseon 03-09-2024 FINGERSTICK GLU 110 mg/dL High 74-106 [facility] Comment on above: Result Comment: TIGIST GEMENT OF PATIENT CARE PER NURSING PROTOCOL Performed By: #### L 501.080 ####[facility] [address] [place], [address] Bedside Glucoseon 03-08-2024 FINGERSTICK GLU 96 mg/dL Normal 74-106 [facility] Comment on above: Result Comment: TIGIST GEMENT OF PATIENT CARE PER NURSING PROTOCOL Performed By: #### L 501.080 ####[facility] [address] [place], [address] COVID 19 AG RAPID (RN COLLEGuido T)on 03-08-2024 SARS-CoV-2 (COVID-19) RNA ROHAN+probe Ql (Unsp spec) Normal [facility] Comment on above: Performed By: #### M 100.505 ####[facility] [address] [place], [address] Bedside Glucoseon 03-07-2024 FINGERSTICK GLU 107 mg/dL High 74-106 [facility] Comment on above: Result Comment: TIGIST RODRIGEZ OF PATIENT CARE PER NURSING PROTOCOL Performed By: #### L 501.080 ####[facility] [address] [place], [address] Extremity Lower without Cont raon 03-07-2024 Extremity Lower without Contra Normal [facility] Basic Metabolic Profile (BMP )on 03-06-2024 BUN/CRE 29.1 RATIO High 10-20 [facility] Comment on above: Performed By: #### L 100.0100, L500.2500 ####[facility] [address] [place], [address] CA,Total 10.0 mg/dL Normal 8.5-10.1 [facility] Comment on above: Performed By: #### L 100.0100, L500.2500 ####[facility] [address] [place], [address] Chloride [Moles/Vol] 107 mmol/L Normal 98-107 [facility] Comment on above: Performed By: #### L 100.0100, L500.2500 ####[facility] [address] [place], [address] CO2 [Moles/Vol] 26.0 mmol/L Normal 21.0-32.0 [facility] Comment on above: Performed By: #### L 100.0100, L500.2500 ####[facility] [address] [place], [address] Creatinine [Mass/Vol] 0.82 mg/dL Normal 0.55-1.02 [facility] Comment on above: Result Comment: The validity of the calculated GFR GFRAA in patients over70 years has not been determined. Clinical correlation isessential. Performed By: #### L 100.0100, L500.2500 ####[facility] [address] [place], [address] ECRCL 38.53 ml/min Normal [facility] Comment on above: Performed By: #### L 100.0100, L500.2500 ####[facility] [address] [place], [address] EST GFR - AA 84 mL/min Normal >60 [facility] Comment on above: Result Comment: Afri can [place] GFR Calc Performed By: #### L 100.0100, L500.2500 ####[facility] [address] [place], [address] GAP 4 Low 5-15 [facility] Comment on above: Performed By: #### L 100.0100, L500.2500 ####[facility] [address] [place], [address] GFR/1.73 sq M.predicted among non-blacks MDRD (S/P/Bld) [Vol rate/Area] 69 mL/min/{1.73_m2} Normal >60 [facility] Comment on above: Result Comment: Non- GFR Calc Performed By: #### L 100.0100, L500.2500 ####[facility] [address] [place], [address] Glucose [Mass/Vol] 106 mg/dL Normal 74-106 [facility] Comment on above: Result Comment: Fast ing Glucose result from 100 to 125 mg/dLsuggests IMPAIRED HOMEOSTASIS per A.D.A. criteria. Performed By: #### L 100.0100, L500.2500 ####[facility] [address] [place], [address] Potassium [Moles/Vol] 4.7 mmol/L Normal 3.5-5.1 [facility] Comment on above: Performed By: #### L 100.0100, L500.2500 ####[facility] [address] [place], [address] Sodium [Moles/Vol] 137 mmol/L Normal 136-145 [facility] Comment on above: Performed By: #### L 100.0100, L500.2500 ####[facility] [address] [place], [address] Urea nitrogen [Mass/Vol] 24 mg/dL High 7-18 [facility] Comment on above: Performed By: #### L 100.0100, L500.2500 ####[facility] [address] [place], [address] Bedside Glucoseon - FINGERSTICK GLU 110 mg/dL High 74-106 [facility] Comment on above: Result Comment: TIGIST RODRIGEZ OF PATIENT CARE PER NURSING PROTOCOL Performed By: #### L 501.080 ####[facility] [address] [place], [address] CBC W/Diff, Automatedon 02-10 Absolute Lymph 2.35 X10 3/uL Normal 0.83-4.51 [facility] Comment on above: Performed By: #### L 100.0100, L500.2500 ####[facility] [address] [place], [address] Absolute Neut 3.1 X10 3/uL Normal 2.0-7.7 [facility] Comment on above: Performed By: #### L 100.0100, L500.2500 ####[facility] [address] [place], [address] Basophils/100 WBC (Bld) 0.5 % Normal 0-1 [facility] Comment on above: Performed By: #### L 100.0100, L500.2500 ####[facility] [address] [place], [address] Eosinophils/100 WBC (Bld) 4.2 % Normal 0-5 [facility] Comment on above: Performed By: #### L 100.0100, L500.2500 ####[facility] [address] [place], [address] Erythrocyte distribution width (RBC) [Ratio] 13.3 % Normal 11.6-14.6 [facility] Comment on above: Performed By: #### L 100.0100, L500.2500 ####[facility] [address] [place], [address] Hematocrit (Bld) [Volume fraction] 30.9 % Low 37-47 [facility] Comment on above: Performed By: #### L 100.0100, L500.2500 ####[facility] [address] [place], [address] Hemoglobin (Bld) [Mass/Vol] 10.1 g/dL Low 12.0-15.0 [facility] Comment on above: Performed By: #### L 100.0100, L500.2500 ####[facility] [address] [place], [address] IG% 0.200 Normal 0.0-0.9 [facility] Comment on above: Result Comment: IG% - Immature Granulocytes (promyelocytes, myelocytes andmetamyelocytes) > 1% indicates that a LEFT SHIFT is Present. Performed By: #### L 100.0100, L500.2500 ####[facility] [address] [place], [address] Lymphocytes/100 WBC (Bld) 38.1 % Normal 19-41 [facility] Comment on above: Performed By: #### L 100.0100, L500.2500 ####[facility] [address] [place], [address] MCH (RBC) [Entitic mass] 30.3 pg Normal 27.0-32.0 [facility] Comment on above: Performed By: #### L 100.0100, L500.2500 ####[facility] [address] [place], [address] MCHC (RBC) [Mass/Vol] 32.7 g/dL Normal 32-36 [facility] Comment on above: Performed By: #### L 100.0100, L500.2500 ####[facility] [address] [place], [address] MCV (RBC) [Entitic vol] 92.8 fL Normal 81-99 [facility] Comment on above: Performed By: #### L 100.0100, L500.2500 ####[facility] [address] [place], [address] Monocytes/100 WBC (Bld) 6.8 % Normal 0-10 [facility] Comment on above: Performed By: #### L 100.0100, L500.2500 ####[facility] [address] [place], [address] Neutrophils/100 WBC (Bld) 50.2 % Normal 47-70 [facility] Comment on above: Performed By: #### L 100.0100, L500.2500 ####[facility] [address] [place], [address] Nucleated RBC (Bld) [#/Vol] 0 10*3/uL Normal 0-5 [facility] Comment on above: Performed By: #### L 100.0100, L500.2500 ####[facility] [address] [place], [address] Platelet mean volume (Bld) [Entitic vol] 9.3 fL Normal 6.2-12.0 [facility] Comment on above: Performed By: #### L 100.0100, L500.2500 ####[facility] [address] [place], [address] Platelets (Bld) [#/Vol] 273 10*3/uL Normal 150-450 [facility] Comment on above: Performed By: #### L 100.0100, L500.2500 ####[facility] [address] [place], [address] RBC (Bld) [#/Vol] 3.33 10*6/uL Low 4.2-5.4 [facility] Comment on above: Performed By: #### L 100.0100, L500.2500 ####[facility] [address] [place], [address] RDW SD 45.1 fl High 35.1-43.9 [facility] Comment on above: Performed By: #### L 100.0100, L500.2500 ####[facility] [address] [place], [address] WBC (Bld) [#/Vol] 6.2 10*3/uL Normal 4.4-11.0 [facility] Comment on above: Performed By: #### L 100.0100, L500.2500 ####[facility] [address] [place], [address] HIP, UNI W/ Pelvis 2-3 Views on 03-06-2024 HIP, UNI W/ Pelvis 2-3 Views Normal [facility] Knee 3 Viewson 03-06-2024 Knee 3 Views Normal [facility] Tibia Fibula 2 Viewson 03-06 Tibia Fibula 2 Views Normal [facility] Bedside Glucoseon 03-05-2024 FINGERSTICK GLU 101 mg/dL Normal 74-106 [facility] Comment on above: Result Comment: TIGIST RODRIGEZ OF PATIENT CARE PER NURSING PROTOCOL Performed By: #### L 501.080 ####[facility] [address] [place], [address] Bedside Glucoseon 06-24-2024 FINGERSTICK GLU 87 mg/dL Normal 74-106 [facility] Comment on above: Result Comment: TIGIST GEMENT OF PATIENT CARE PER NURSING PROTOCOL Performed By: #### L 501.080 ####[facility] [address] [place], [address] Bedside Glucoseon 03-03-2024 FINGERSTICK GLU 95 mg/dL Normal 74-106 [facility] Comment on above: Result Comment: TIGIST GEMENT OF PATIENT CARE PER NURSING PROTOCOL Performed By: #### L 501.080 ####[facility] [address] [place], [address] Vital Signs Date Time Vital Sign Value Performing Clinician Faci lity 10-17-2024 10:26-0500 Body height 152.[address] Elgin Orozco MD Work Phone: [facility] 10-17-2024 10:26-0500 Body mass index (BMI) [Ratio] 26.7 kg/m2 Dr. Elgin Orozco MD Work Phone: [facility] 10-17-2024 10:26-0500 Body weight 62.[address] Elgin Orozco MD Work Phone: [facility] 10-17-2024 10:26-0500 Diastolic blood pressure 52 mm[Hg] Dr. Elgin Orozco MD Work Phone: [facility] 10-17-2024 10:26-0500 Heart rate 53 /min Dr. Elgin Orozco MD Work Phone: [facility] 10-17-2024 10:26-0500 Respiratory rate 16 /min Dr. Elgin Orozco MD Work Phone: [facility] 10-17-2024 10:26-0500 Systolic blood pressure 104 mm[Hg] Dr. Elgin Orozco MD Work Phone: [facility] 02-14-2023 13:06-0400 Body height 152.[address] Maria Teresa Pedroza Work Phone: [facility] 02-14-2023 13:06-0400 Body mass index (BMI) [Ratio] 29.9 kg/m2 Dr. Maria Teresa Pedroza Work Phone: [facility] 02-14-2023 13:06-0400 Body weight 69.[address] Maria Teresa Pedroza Work Phone: [facility] 02-14-2023 13:06-0400 Diastolic blood pressure 75 mm[Hg] Dr. Maria Teresa Pedroza Work Phone: [facility] 02-14-2023 13:06-0400 Heart rate 74 /min Dr. Maria Teresa Pedroza Work Phone: [facility] 02-14-2023 13:06-0400 Respiratory rate 16 /min Dr. Maria Teresa Pedroza Work Phone: [facility] 02-14-2023 13:06-0400 Systolic blood pressure 139 mm[Hg] Dr. Maria Teresa Pedroza Work Phone: [facility] Encounters Encounter Date Encounter Type Care Provider Facility Start: 02-18-2025 ambulatory Elgin Dhillon lity:[facility] Start: 02-18-2025 Registered Referred Rachel Dalton MD [facility] Start: 02-12-2025 ambulatory Elgin Dhillon lity:[facility] Start: 02-12-2025 [facility] Start: 01-21-2025 End: 01-21-[address] Elgin Orozco MD Work Phone: [facility] Work Phone: Start: 01-21-2025 End: 01-21-2025 [facility] Start: 01-21-2025 [facility] Start: 01-21-2025 End: 01-21-2025 ambulatory Elgin Orozco Facility:[facility] Start: 01-15-2025 End: 01-15-[address] Elgin Orozco MD Work Phone: [facility] Work Phone: Start: 01-15-2025 End: 01-15-2025 [facility] Start: 01-15-2025 End: 01-15-2025 ambulatory Elgin Orozco Facility:[facility] Start: 01-13-2025 End: 01-13-2025 ambulatory [facility] Facility:[facility] Start: 01-13-2025 End: 01-13-[address] Mukul Lunsford MD -[facility] Work Phone: Start: 12-17-2024 End: 12-17-2024 [facility] Start: 12-17-2024 [facility] Start: 12-17-2024 End: 12-17-2024 ambulatory Rachel FRANZ Facility:[facility] Start: 12-11-2024 End: 12-11-[address] Elgin rOozco MD Work Phone: [facility] Work Phone: Start: 12-11-2024 End: 12-11-2024 [facility] Start: 12-11-2024 [facility] Start: 12-10-2024 End: 12-11-[address] Elgin Orozco MD Work Phone: [facility] Work Phone: Start: 12-10-2024 End: 12-10-2024 Patient encounter procedure Julieta ALCALA -[facility] Work Phone: Start: 11-19-2024 End: 11-19-2024 ambulatory Brian Pam Facility:[facility] Start: 11-19-2024 End: 11-19-[address] Rachel Dalton MD -[facility] Work Phone: Start: 11-19-2024 End: 11-19-2024 [facility] Start: 11-19-2024 End: 11-19-2024 ambulatory Rachel FRANZ Facility:[facility] Start: 11-13-2024 End: 11-13-[address] Elgin Orozco MD Work Phone: [facility] Work Phone: Start: 11-13-2024 End: 11-13-2024 [facility] Start: 11-13-2024 End: 11-13-2024 ambulatory Rachel FRANZ Facility:[facility] Start: 10-25-2024 ambulatory Rachel FRANZ Fa cility:[facility] Start: 10-25-2024 [facility] Start: 10-24-2024 End: 10-24-2024 ambulatory Julieta Zeng NP Facility:[facility] Start: 10-24-2024 End: 10-24-2024 Patient encounter procedure Julieta Zeng BALANCE CLERK- -[facility] Work Phone: Start: 10-22-2024 ambulatory Rachel FRANZ Fa cility:[facility] Start: 10-22-2024 [facility] Start: 10-17-2024 End: 10-17-2024 ambulatory Elgin Orozco Facility:[facility] Start: 10-17-2024 End: 10-17-[address] Mukul Lunsford MD -[place] [facility] Work Phone: Start: 10-16-2024 ambulatory Elgin Orozco Faci lity:[facility] Start: 10-16-2024 [facility] Start: 09-24-2024 End: 09-24-2024 ambulatory Jamelkatarzynadino Tylerlibiae Facility:[facility] Start: 09-24-2024 End: 09-24-[address] Rachel Dalton MD -[facility] Work Phone: Start: 09-24-2024 ambulatory Christopher Michelezena Faci lity:[facility] Start: 09-24-2024 [facility] Start: 09-13-2024 ambulatory Christopher Pam Faci lity:[facility] Start: 09-13-2024 [facility] Start: 08-29-2024 ambulatory Christopher Michelezena Faci lity:[facility] Start: 08-29-2024 [facility] Start: 08-28-2024 End: 08-28-2024 ambulatory Christophrosemarie Bautistazena Facility:[facility] Start: 08-28-2024 End: 08-28-2024 Patient encounter procedure Julieta ALCALA -[facility] Work Phone: Start: 08-20-2024 ambulatory Rachel Giraldoe OLS Fa cility:[facility] Start: 08-20-2024 [facility] Start: 08-14-2024 ambulatory Efjose miguel Giraldoe OLS Fa cility:[facility] Start: 08-13-2024 End: 08-13-2024 ambulatory Christopher Ranney Facility[facility] Start: 08-10-2024 ambulatory Christopher Ranney Faci lity:[facility] Start: 08-10-2024 End: 08-12-2024 Evaluation and management of inpatient Christopher Ranney Facility:[facility] Start: 08-09-2024 End: 08-09-2024 ambulatory Efeanongdino Tylerlibiae OLS Facility:[facility] Start: 07-23-2024 End: 07-23-2024 ambulatory Efewongbe Oleghe OLS Facility:[facility] Start: 07-17-2024 ambulatory Efeanongbe Kristale OLS Fa cility:[facility] Start: 07-16-2024 End: 07-16-2024 ambulatory Elgin Orozco Facility:[facility] Start: 06-18-2024 End: 06-18-2024 ambulatory Efjose miguel Giraldoe OLS Facility:[facility] Start: 06-14-2024 End: 06-14-2024 ambulatory Julieta Zeng BALANCE CLERK Facility:[facility] Start: 06-12-2024 End: 06-12-2024 ambulatory Efewongbe Kristale OLS Facility:[facility] Start: 05-28-2024 End: 05-28-2024 ambulatory Efeanongbe Kristale Facility:[facility] Start: 05-21-2024 End: 05-21-2024 ambulatory Efewongbe Tylerghe OLS Facility:[facility] Start: 05-15-2024 ambulatory Efeanongbe Kristale OLS Fa cility:[facility] Start: 05-09-2024 End: 05-09-2024 ambulatory Kristian Whitlock Facility:[facility] Start: 05-02-2024 End: 05-02-2024 ambulatory Julieta Zeng BALANCE CLERK Facility:[facility] Start: 04-09-2024 End: 04-09-2024 ambulatory Efeanongbe Kristale OLS Facility:[facility] Start: 03-25-2024 End: 03-26-2024 ambulatory Julieta Azucena OLS Facility:[facility] Start: 03-19-2024 End: 03-19-2024 ambulatory Efjose miguel Giraldoe Facility:[facility] Start: 03-18-2024 End: 03-18-2024 ambulatory Efewongbe Kristale OLS Facility:[facility] Start: 03-07-2024 End: 03-07-2024 ambulatory Patrick Chi Caleb Facility:[facility] Start: 03-03-2023 Non-patient / Non-visit Dr. Maria Teresa Pedroza Work Phone: [facility] Start: 03-03-2023 End: 03-03-[address] Maria Teresa Pedroza Work Phone: [facility] Work Phone: Start: 03-03-2023 End: 03-03-[address] Maria Teresa Pedroza Work Phone: [facility] Work Phone: Start: 02-14-2023 End: 02-14-[address] Maria Teresa Pedroza Work Phone: [facility] Work Phone: Start: 01-10-2023 End: 01-10-[address] Maria Teresa Pedroza Work Phone: [facility] Work Phone: Procedures Date Procedure [...] Immunization Date Immunization Notes Care Provider Fa [facility] 03-06-2024 Covid (Spikevax) Dr. Edward Orozco MD Work Phone: [facility] 07-14-2023 Influenza High-Dose Quadrivalent Dr. Elign Orozco MD Work Phone: [facility] 07-14-2021 Covid (Moderna) Dr. Betty Orozco MD Work Phone: [facility] 11-05-2020 Covid (Moderna) Dr. Betty Orozco MD Work Phone: [facility] 10-08-2020 Covid (Moderna) Dr. Betty Orozco MD Work Phone: [facility] 06-30-2020 influenza, injectabl e, quadrivalent, preservative free Dr. Elgin Orozco MD Work Phone: [facility] 06-30-2020 influenza, seasonal, injectable Dr. Maria Teresa Pedroza Work Phone: [facility] 06-30-2020 Seasonal, quadrivalent, recombinant, injectable influenza vaccine, preservative free Dr. Elgin Orozco MD Work Phone: [facility] 09-09-2009 novel [id number], preservative-free, injectable Dr. Elgin Orozco MD Work Phone: [facility] 07-11-2008 influenza, injectabl e, quadrivalent, preservative free Dr. Elgin Orozco MD Work Phone: [facility] 07-30-2007 influenza, injectabl e, quadrivalent, preservative free Dr. Elgin Orozco MD Work Phone: [facility] Payers Date Payer Category Payer Unknown [id number] 2024 Self-pay [id number] 2023 Unknown [id number] 2023 Unknown [id number] 2016 Medicare [id number] Unknown [facility] [id number] 1 [id number] Unknown [id number] 2.16.8 40.1.748647.3.579.2.462 Unknown [id number] 2.16.8 40.1.462251.3.579.2.462 Unknown [id number] 2.16.8 40.1.578523.3.579.2.462 Unknown [id number] 2.16.8 40.1.061885.3.579.2.462 Unknown [id number] 2.16.8 40.1.577269.3.579.2.462 Unknown [id number] 2.16.8 40.1.866897.3.579.2.462 Unknown [id number] 2.16.8 40.1.321503.3.579.2.462 Unknown [id number] 2.16.8 40.1.388541.3.579.2.462 Unknown [id number] 2.16.8 40.1.539825.3.579.2.462 Unknown [id number] 2.16.8 40.1.343469.3.579.2.462 Unknown [id number] 2.16.8 40.1.456730.3.579.2.462 Unknown [id number] 2.16.8 40.1.827897.3.579.2.462 Unknown [id number] 2.16.8 40.1.403465.3.579.2.462 Unknown [id number] 2.16.8 40.1.247520.3.579.2.462 Unknown [id number] 2.16.8 40.1.058114.3.579.2.462 Unknown [id number] 2.16.8 40.1.589239.3.579.2.462 Unknown [id number] 2.16.8 40.1.888599.3.579.2.462 Unknown [id number] 2.16.8 40.1.667301.3.579.2.462 Unknown [id number] 2.16.8 40.1.203349.3.579.2.462 Unknown [id number] 2.16.8 40.1.784121.3.579.2.462 Unknown [id number] 2.16.8 40.1.524044.3.579.2.462 Unknown [id number] 2.16.8 40.1.537730.3.579.2.462 Unknown [id number] 2.16.8 40.1.529916.3.579.2.462 Unknown [id number] 2.16.8 40.1.925477.3.579.2.462 Unknown [id number] 2.16.8 40.1.169517.3.579.2.462 Unknown [id number] 2.16.8 40.1.060997.3.579.2.462 Unknown [id number] 2.16.8 40.1.651503.3.579.2.462 Unknown [id number] 2.16.8 40.1.673059.3.579.2.462 Unknown [id number] 2.16.8 40.1.169799.3.579.2.462 Unknown [id number] 2.16.8 40.1.625194.3.579.2.462 Unknown [id number] 2.16.8 40.1.075072.3.579.2.462 Unknown [id number] 2.16.8 40.1.327842.3.579.2.462 Unknown [id number] 2.16.8 40.1.466330.3.579.2.462 Unknown [id number] 2.16.8 40.1.017201.3.579.2.462 Unknown [id number] 2.16.8 40.1.149732.3.579.2.462 Unknown [id number] 2.16.8 40.1.463962.3.579.2.462 Unknown [id number] 2.16.8 40.1.781492.3.579.2.462 Unknown [id number] 2.16.8 40.1.318796.3.579.2.462 Unknown [id number] 2.16.8 40.1.675586.3.579.2.462 Unknown [id number] 2.16.8 40.1.455398.3.579.2.462 Unknown [id number] 2.16.8 40.1.073157.3.579.2.462 Unknown [id number] 2.16.8 40.1.664032.3.579.2.462 Unknown [id number] 2.16.8 40.1.438157.3.579.2.462 Unknown [id number] 2.16.8 40.1.422904.3.579.2.462 Unknown [id number] 2.16.8 40.1.287481.3.579.2.462 Unknown [id number] 2.16.8 40.1.147999.3.579.2.462 Unknown [id number] 2.16.8 40.1.421425.3.579.2.462 Unknown [id number] 2.16.8 40.1.058239.3.579.2.462 Social History Date Type Detail Facility Start: 02-14-2023 Tobacco smoking stat [facility] Unknown if ever smoked [facility] Start: 12-29-2020 None [facility] Start: 12-29-2020 Alone [facility] Start: 12-29-2020 Non-smoker [facility] Start: 1935 Sex Assigned At Female [facility] Start: 08-10-2024 [facility] Start: 12-13-2024 End: 01-01-2025 Sex Female (finding) [facility] Evaluation note 10-17-2024 Note Date & Type [...] or graft chronic October 17, 2024 10:24am [facility] Work Phone: Discharge summary note 08-12-2024 Note Date & Type Note Facility 08-12-2024 Note [facility] Discharge summary note 03-12-2024 Note Date & Type Note Facility 03-12-2024 Note [facility] Evaluation note 01-31-2013 Note Date & Type [...] to any device, implant or graft chronic [facility] Work Phone: Evaluation note Note Date & Type Note Facility [facility]: Reason for referral (narrative) Note Date & Type Note Facility Reason for referral (narrative) No reason for referral information available [facility] Work Phone: Chief Complaint and Reason for [...] 2024 4:31pm LABWORK August 29, 2024 3:00pm [facility] WORK September 13, 2024 5:00am [facility] September 24, 2024 5:40am MONTHLY EXAM September 24, 2024 1 0:02pm [facility] October 16, 2024 4:00am Pacer Check Remote October 17, 2024 9 :00am 1 Y FU/TEXTBOOK ASSOCIATE @ 11 October 17, 2024 1 0:23am 1 Y FU/YARELY @ 10:30 October 17, 2024 1 0:24am [facility] October 22 5:00am MONTHLY EXAM October 24, 2024 2:08pm LABWORK October 25, 2024 4:38am LABWORK November 13, 2024 5:00 am [facility] WORK November 19, 2024 4 :00am [...] 17, 2024 10:24am Chief Complaint Admit Date [facility] September 13, 2024 5:00am [facility] September 24, 2024 5:40am MONTHLY EXAM September 24, 2024 1 0:02pm [facility] October 16, 2024 4:00am Pacer Check Remote October 17, 2024 9 :00am 1 Y FU/TEXTBOOK ASSOCIATE @ October 17, 2024 1 0:23am 1 Y FU/YARELY @ 10:30 October 17, 2024 1 0:24am [facility] WORK October 22 5:00am MONTHLY EXAM October 24, 2024 2:08pm LABWORK October 25, 2024 4:38am LABWORK November 13, 2024 5:00 am [facility] WORK November 19, 2024 4 :00am MONTHLY EXAM November 19, 2024 5:3 2pm LABWORK December 11, 2024 5:00 am Chief Complaint Admit Date [facility] WORK October 16, 2024 4:00am Pacer Check Remote October 17, 2024 9 :00am 1 Y FU/TEXTBOOK ASSOCIATE @ October 17, 2024 1 0:23am 1 Y FU/YARELY @ 10:30 October 17, 2024 1 0:24am [facility] WORK October 22 5:00am MONTHLY EXAM October 24, 2024 2:08pm LABWORK October 25, 2024 4:38am LABWORK November 13, 2024 5:00 am [facility] WORK November 19, 2024 4 :00am MONTHLY EXAM November 19, 2024 5:3 2pm LABWORK December 11, 2024 5:00 am [facility] WORK December 17, 2024 5: 00am Pacer Check Remote January 13, 2025 1:22am LABWORK January 15, 2025 5:00am Chief Complaint Admit Date [facility] WORK October 16, 2024 4:00am Pacer Check Remote October 17, 2024 9 :00am 1 Y FU/TEXTBOOK ASSOCIATE @ 11 October 17, 2024 1 0:23am 1 Y FU/YARELY @ 10:30 October 17, 2024 1 0:24am [facility] WORK October 22 5:00am MONTHLY EXAM October 24, 2024 2:08pm LABWORK October 25, 2024 4:38am LABWORK November 13, 2024 5:00 am [facility] WORK November 19, 2024 4 :00am MONTHLY EXAM November 19, 2024 5:3 2pm LABWORK December 11, 2024 5:00 am [facility] WORK December 17, 2024 5: 00am Pacer Check Remote January 13, 2025 1:22am LABWORK January 15, 2025 5:00am LABWORK January 21, 2025 5:00a m Chief Complaint Admit Date LABWORK November 13, 2024 5:00 am [facility] WORK November 19, 2024 4 :00am MONTHLY EXAM November 19, 2024 5:3 2pm Monthly Exam December 10, 2024 4:10 pm LABWORK December 11, 2024 5:00 am [facility] WORK December 17, 2024 5: 00am Pacer Check Remote January 13, 2025 1:22am LABWORK January 15, 2025 5:00am LABWORK January 21, 2025 5:00a m LABWORK February 12, 2025 5:00a m Family History No Family History Records Found Relationship Condition Age at Onset Recorded Date/T damian mother Coronary artery disease Unknown Congestive heart failure Unknown father Diabetes mellitus Unknown Advance Directives No Advanced Directives Records Found Advance Directive Response Recorded Date/ Time Living Will No December 29, 2020 6:30pm Power of Gunnery/Ordnance Officer No December 29 6:30pm Advance Directive Response Recorded Date/ Time Living Will No December 29, 2020 6:30pm Do you have a Healthcare Power of Gunnery/Ordnance Officer? No December 29, 2020 6:30pm Summary Purpose Additional Source Comments Care Teams (unrecognized sec tion and content) Team Status: Active Member Role Status Dates Dr. Elgin Orozco MD Primary Care Provider Acti ve Team Status: Inactive Member Role Status Dates [...] Primary Care Provider Acti ve Start: December 10, 2024 End: December 10, 2024 Julieta Zeng BALANCE CLERK, BALANCE CLERK-C Attending Provider Active Start: December 10, 2024 End: December 10, 2024 Team Status: Inactive Member Role Status Dates Dr. Elgin Orozco MD Primary Care Provider Acti ve Start: December 11, 2024 End: December 11, 2024 Rachel FRANZ MD Attending Provider Active Start: December 11, 2024 End: December 11, 2024 Team Status: Inactive Member [...] 2025 End: January 15, 2025 Team Status: Inactive Member Role Status Dates Dr. Elgin Orozco MD Primary Care Provider Acti ve Start: January 21, 2025 End: January 21, 2025 Rachel FRANZ MD Attending Provider Active Start: January 21, 2025 End: January 21, 2025 Team Status: Active Member Role Status Dates Dr. Elgin Orozco MD Primary Care Provider Acti ve Start: February 12, 2025 Rachel FRANZ MD Attending Provider Active Start: February 12, 2025 Team Status: Active Member Role Status Dates Dr. Elgin Orozco MD Primary Care Provider Acti ve Start: February 18, 2025 Rachel FRANZ MD Attending Provider Active Start: February 18, 2025 Team Status: Active Member Role Status Dates Dr. Maria Teresa Pedroza DO Primary Care Provider Active Team Status: [...] 2024 End: August 28, 2024 Julieta Zeng BALANCE CLERK, BALANCE CLERK-C Attending Provider Active Start: August 28, 2024 [...] 2024 End: October 24, 2024 Julieta Zeng NP, BALANCE CLERK-C Attending Provider Active Start: October 24, 2024 End: October 24, 2024 Team Status: Active Member Role Status Dates Dr. Elgin Orozco MD Primary Care Provider Acti ve Start: October 25, 2024 Rachel FRANZ MD Attending Provider Active Start: October 25, 2024 Team Status: Active Member Role Status Dates Dr. Elgin Orozco MD Primary Care Provider Acti ve Start: December 11, 2024 Rachel FRANZ MD Attending Provider Active Start: December 11, 2024 Team Status: Active Member Role Status Dates Dr. Elgin Orozco MD Primary Care Provider Acti ve Start: December 17, 2024 Rachel FRANZ MD Attending Provider Active Start: December 17, 2024 Team Status: Active Member Role Status Dates Dr. Elgin Orozco MD Primary Care Provider Acti ve Start: January 21, 2025 Rachel FRANZ MD Attending Provider Active Start: January 21, 2025 Goals (unrecognized section and content) Goals may be documented in a n alternate sectionGoals may be documented in an alternate sectionGoals may be documented in an alternate sectionGoals may be documented in an alternate sectionGoals may be documented in an alternate sectionGoals may be documented in an alternate section INFORMATION SOURCE (unrecogn ized section and content) DATE CREATED AUTHOR 03/02/2025 [facility] FOR RECORDS PERTAINING TO PATIENTS WHO ARE [...] BE BASED ON THE PRIMARY CLINICAL RECORDS. [employer] provides no warranty or guarantee of the accuracy or completeness of information in this document.
[2025-03-12 08:32] LABS: Hematocrit 35.6 % (37-47); Hemoglobin 11.9 g/dL (12.0-15.0); Immature Granulocytes Count 0.010 X10^3/uL (0.0-0.0); Mean Corp Hgb Conc 33.4 g/dL (32-36); Mean Corpuscular Volume 90.8 fL (81-99); Mean Platelet Vol. 10.8 fl (6.2-12.0); NRBC Flagged by Analyzer 0 % (0-5); Platelet Count 187 K/mm3 (150-450); RBC Distribution Width CV 12.9 % (11.6-14.6); RBC Distribution Width SD 42.6 fl (35.1-43.9); Red Blood Count 3.92 M/mm3 (4.2-5.4); White Blood Count 5.3 K/mm3 (4.4-11.0)
[2025-03-12 09:23] LABS: AST(SGOT) 17 U/L (<=31); Alanine Aminotransfer ALT/SGPT 12 U/L (<=34); Albumin, Serum 3.6 g/dL (3.4-4.8); Alkaline Phosphatase 70 U/L (35-104); Anion Gap 11 (5-15); BUN 20 mg/dL (4-19); BUN/Creat Ratio 24.0 RATIO (10-20); Bilirubin, Direct 0.11 mg/dL (0.00-0.30); Calcium,Total 10.3 mg/dL (7.6-11.0); Carbon Dioxide 23.7 mmol/L (21.0-32.0); Chloride 104 mmol/L (98-108); Globulin 2.9 g/dL (2.2-4.2); Glucose 126 mg/dL (70-99); Potassium 4.5 mmol/L (3.3-5.1)
== END ==
LOC: OLS.WHLEAS 05:00
PROVIDERS: PCP Family Medicine; Visit Provider Internal Medicine
DX: I10 Essential (primary) hypertension (principal)
CPT/HCPCS: 36415; 80048; 80076; 83036; 84443; 85025

== ENCOUNTER → 2025-04-16 05:00 | Outpatient (REF) | payer MEDICARE, MEDICAID, SELFPAY ==
[2025-04-16 07:36] LABS: Hematocrit 32.8 % (37-47); Hemoglobin 11.0 g/dL (12.0-15.0); Immature Granulocytes Count 0.010 X10^3/uL (0.0-0.0); Mean Corp Hgb Conc 33.5 g/dL (32-36); Mean Corpuscular Volume 90.9 fL (81-99); Mean Platelet Vol. 9.9 fl (6.2-12.0); NRBC Flagged by Analyzer 0 % (0-5); Platelet Count 198 K/mm3 (150-450); RBC Distribution Width CV 12.5 % (11.6-14.6); RBC Distribution Width SD 41.6 fl (35.1-43.9); Red Blood Count 3.61 M/mm3 (4.2-5.4); White Blood Count 5.4 K/mm3 (4.4-11.0)
[2025-04-16 08:23] LABS: Anion Gap 9 (5-15); BUN 21 mg/dL (4-19); BUN/Creat Ratio 24.8 RATIO (10-20); Calcium,Total 10.1 mg/dL (7.6-11.0); Carbon Dioxide 22.5 mmol/L (21.0-32.0); Chloride 107 mmol/L (98-108); Glucose 132 mg/dL (70-99); Potassium 4.6 mmol/L (3.3-5.1)
== END ==
LOC: OLS.WHLEAS 05:00
PROVIDERS: PCP Family Medicine; Visit Provider Internal Medicine
DX: I10 Essential (primary) hypertension (principal)
CPT/HCPCS: 36415; 80048; 85025

== ENCOUNTER 2025-04-18 10:59 | Inpatient (IN) | payer MEDICARE, MEDICAID, SELFPAY ==
[2025-04-18] VITALS (24 sets, daily range): BP systolic 60–127; BP diastolic 34–114; PULSE 61–98; RESP 16–27; TEMP 36.6–37.3; O2SAT 90–97; BMI 26.6; BMI 26.4
--- NOTE | 2025-04-18 11:10 | EKG12_ITS ---
Test Reason : DYSRHYTHMIA Blood Pressure : */* mmHG Vent. Rate : 93 BPM Atrial Rate : 93 BPM P-R Int : 220 ms QRS Dur : 132 ms QT Int : 386 ms P-R-T Axes : 56 -44 114 degrees QTcB Int : 479 ms Sinus rhythm with 1st degree A-V block with occasional Premature ventricular complexes Left axis deviation Left ventricular hypertrophy with QRS widening and repolarization abnormality ( R in aVL , [place] product ) Abnormal ECG When compared with ECG of 18-Apr-2025 11:13, MANUAL COMPARISON REQUIRED DATA IS UNCONFIRMED Confirmed by ANTOINETTE PUENTES, KHADIJAH ([id number]), continuity editor WISAM GAUTAM ([id number]) on 04/21/2025 1:02:10 PM Referred By: Confirmed By: KHADIJAH CURRY MD
--- NOTE | 2025-04-18 11:13 | EKG12_ITS ---
Test Reason : ARRYTH Blood Pressure : */* mmHG Vent. Rate : 81 BPM Atrial Rate : 81 BPM P-R Int : 222 ms QRS Dur : 186 ms QT Int : 480 ms P-R-T Axes : 53 -58 119 degrees QTcB Int : 557 ms Sinus rhythm with 1st degree A-V block with frequent Premature ventricular complexes Left axis deviation Left bundle branch block Abnormal ECG Confirmed by ANTOINETTE PUENTES, KHADIJAH ([id number]), assignment editor WISAM GAUTAM ([id number]) on 04/21/2025 1:25:12 PM Referred By: MARGARITO/VITALY Confirmed By: KHADIJAH CURRY MD
--- NOTE | 2025-04-18 11:19 | EX.ED.DYSGE1 ---
HPI <PERLA Siddiqui - Last Filed: 04/18/25 17:55> History of Present Illness Chief Complaint: General Illness Narrative Narrative: 89-year-old male with PMH of HTN, HLD, DM2, CAD, CHF, ICD, A-fib, GI bleed presents for weakness. History is gathered from her daughter. Patient lives at [facility] and had an unwitnessed fall a week ago while coming out of the bathroom. She said she landed on her butt. The daughter saw her on Monday and she seemed a little off and weaker than usual. She talked to her on the phone yesterday and she seemed to be more perky and her usual self. She got a call from the [facility] this morning that the patient had vomiting and diarrhea and low oxygen saturations and was placed on O2. She does not wear baseline oxygen. No reported fever or cough. The patient states she does not feel well but cannot give specifics. Her daughter states she thinks she has dementia but she does not have a formal diagnosis but she . She has a history of diabetes but is no longer on medication for it and is no longer on anticoagulation for A-fib. 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 DM2 (diabetes mellitus, type 2) Dyslipidemia Home Medications ?Medication ?Instructions ?Recorded ?Last Taken ?Type [id number] 8 mg-folic 400 1 tab PO DAILY supplement 02/19/24 04/18/25 History mcg-K 50 mcg-lutein 300 mcg tablet lisinopril 20 mg tablet 20 mg PO QHS cardiac 03/25/24 04/17/25 History acetaminophen 500 mg tablet 1,000 mg PO BID pain 08/11/24 04/18/25 History polyethylene glycol 3350 17 17 g PO DAILY 10/17/24 04/18/25 History gram/dose oral powder carvedilol 25 mg tablet 12.5 mg PO BID heart/bp 04/18/25 04/18/25 History Allergy/AdvReac Type Severity Reaction Status Date / Time No Known Allergies Allergy Verified 04/18/25 11:00 Family History Mother CAD (coronary artery disease) CHF (congestive heart failure) Father Diabetes Surgical History History of left heart catheterization (12/17/12) History of implantable cardiac defibrillator (ICD) (01/31/13) Cataract H/O: hysterectomy H/O tubal ligation History of hip replacement Social History household members: none Smoking Status: Never smoker alcohol intake: never substance use type: does not use caffeine: Yes Type: coffee Number of servings: 2 what type of physical activity do you participate in: none seatbelt use: always do you feel safe at home: Yes ROS <PERLA Siddiqui - Last Filed: 04/18/25 17:55> ROS ED ROS Narrative Constitutional: Negative for fever, chills. CVS: Negative for chest pain Respiratory: Negative for cough. GI: Positive for vomiting, diarrhea. EXAM <PERLA Siddiqui - Last Filed: 04/18/25 17:55> Physical Exam Narrative Exam Narrative: CONST: Patient sitting in no acute distress. EYES: Normal inspection. ENT: Normal inspection, dry mucous membranes. NECK: Normal inspection. RESP: On 5 L nasal cannula, coarse lung sounds throughout. CVS: Regular rate and rhythm, no murmur, no gallop. ABD: Soft and nontender, no guarding or rebound, nondistended. SKIN: Color normal, no rash, warm, dry, intact. EXTREMITIES: Normal appearance, no pedal edema. NEURO: Alert to self and place. Moving all extremities. Follows basic commands. PSYCH: Normal affect. Const Vital Signs: 04/18/25 11:00 04/18/25 11:04 04/18/25 11:04 Temperature 98.0 F 98.0 F Temperature Source Oral Oral Pulse Rate 61 98 Respiratory Rate 26 H 25 H Respiratory Effort Normal Respiratory Pattern Normal Blood Pressure 60/50 L 127/114 H Blood Pressure Mean 53 118 Pulse Ox 91 92 Oxygen Delivery Method Nasal Cannula Nasal Cannula Oxygen Flow Rate (L/min) 5 5 04/18/25 11:56 04/18/25 12:00 04/18/25 13:00 Temperature 98.4 F 97.8 F 97.9 F Temperature Source Oral Core Core Pulse Rate 78 79 81 Respiratory Rate 20 H 24 H 24 H Respiratory Effort Respiratory Pattern Blood Pressure 83/34 L 91/54 L 89/63 L Blood Pressure Mean 50 66 71 Pulse Ox 94 95 97 Oxygen Delivery Method Nasal Cannula Nasal Cannula Nasal Cannula Oxygen Flow Rate (L/min) 5 5 4 04/18/25 13:08 04/18/25 13:13 Temperature 97.9 F Temperature Source Pulse Rate 81 Respiratory Rate 24 H Respiratory Effort Respiratory Pattern Blood Pressure 89/63 L 121/90 H Blood Pressure Mean 71 100 Pulse Ox 97 Oxygen Delivery Method Oxygen Flow Rate (L/min) <Dr. Jabari Chacon MD - Last Filed: 04/18/25 15:16> Physical Exam Const Vital Signs: 04/18/25 11:00 04/18/25 11:04 04/18/25 11:04 Temperature 98.0 F 98.0 F Temperature Source Oral Oral Pulse Rate 61 98 Respiratory Rate 26 H 25 H Respiratory Effort Normal Respiratory Pattern Normal Blood Pressure 60/50 L 127/114 H Blood Pressure Mean 53 118 Pulse Ox 91 92 Oxygen Delivery Method Nasal Cannula Nasal Cannula Oxygen Flow Rate (L/min) 5 5 04/18/25 11:56 04/18/25 12:00 04/18/25 13:00 Temperature 98.4 F 97.8 F 97.9 F Temperature Source Oral Core Core Pulse Rate 78 79 81 Respiratory Rate 20 H 24 H 24 H Respiratory Effort Respiratory Pattern Blood Pressure 83/34 L 91/54 L 89/63 L Blood Pressure Mean 50 66 71 Pulse Ox 94 95 97 Oxygen Delivery Method Nasal Cannula Nasal Cannula Nasal Cannula Oxygen Flow Rate (L/min) 5 5 4 04/18/25 13:08 04/18/25 13:13 Temperature 97.9 F Temperature Source Pulse Rate 81 Respiratory Rate 24 H Respiratory Effort Respiratory Pattern Blood Pressure 89/63 L 121/90 H Blood Pressure Mean 71 100 Pulse Ox 97 Oxygen Delivery Method Oxygen Flow Rate (L/min) Sepsis Attestation <Dr. Jabari Chacon MD - Last Filed: 04/18/25 15:16> Sepsis Alert: Yes Sepsis Attestation: Agree w/Sepsis Date exam was performed: 04/18/25 Time exam was performed: 12:00 Possible Source of Sepsis: Pulmonary and Genitourinary Sepsis Organ Dysfunction Criteria Present: SBP < 90 mmHg or MAP < 65 mmHg and Serum CO2 < 20 mmol/L (on BMP) Supportive Findings: leukocytosis, pos urine Fluid Resuscitation Fluid resuscitation indicated?: Yes Fluid Resuscitation ordered: 30 ml/kg fluid bolus ordered Sepsis Note Date exam was performed: 04/18/25 Time exam was performed: 13:13 Sepsis Attestation: Sepsis re-evaluation was performed Response to fluids: Non Fluid responsive hypotension and Vasopressors started MDM <PELRA Siddiqui - Last Filed: 04/18/25 17:55> [facility] MDM Narrative Medical decision making narrative: History gathered from: Patient, mainly her daughter Differential includes but not limited to pneumonia, congestive heart failure, UTI 89-year-old female presents with N/V/D, shortness of breath and hypoxia, and weakness from a fdc facility. Her daughter provides history so it is somewhat limited but reportedly the symptoms started today. She appears ill but nontoxic. She was hypotensive around 83/34, HR 78, 94% on 5 L, RR 18, afebrile. She has very dry mucous membranes and skin tenting. Heart is regular, coarse lung sounds throughout, abdomen soft and nontender. IV fluids are running from EMS and sepsis workup was initiated. WBC is 18.5, lactic 2.0. Electrolytes are unremarkable. She has an LUDIN with creatinine of 1.5. She was given a second liter of IV fluids here with some improvement in blood pressure. Chest x-ray shows no pneumonia but there is pulmonary vascular congestion, she has CHF and her echo from 2 years ago shows an EF of 20% so she was not given additional fluids and the decision was made to start her on pressors. The attending placing a central line. With UTI and septic shock concern is for urosepsis and she was ordered Rocephin. Case was discussed with both the ICU and hospitalist attendings and she was admitted to the ICU. 35 minutes of critical care time was consumed by evaluation with treatment of the patient, discussion with multiple consultants, placement of advanced lines. History & Record Review Discussion w/independent historian: Patient and Family Additional record(s) reviewed:: Prior ED visit and Prior labs Lab Data Attestation: I reviewed the patient's lab results. Labs: Laboratory Results - last 24 hr 04/18/25 04/18/25 04/18/25 10:40 11:48 11:53 WBC 18.5 H RBC 4.01 L Hgb 12.1 Hct 36.5 L MCV 91.0 MCH 30.2 MCHC 33.2 RDW Std Deviation 41.1 RDW Coeff of Keren 12.4 Plt Count 214 MPV 9.9 Immature Gran % (Auto) 1.100 H Neut % (Auto) 94.5 H Lymph % (Auto) 2.8 L [place] % (Auto) 1.2 Eos % (Auto) 0.1 Baso % (Auto) 0.3 Absolute Neuts (auto) 17.5 H Absolute Lymphs (auto) 0.52 L Nucleated RBC % 0 Platelet Estimate A Sodium 138 Potassium 4.8 Chloride 104 Carbon Dioxide 19.0 L Anion Gap 15 BUN 29 H Creatinine 1.53 H Estim Creat Clear Calc 20.49 L Est GFR (MDRD) Non-Af 32 L BUN/Creatinine Ratio 18.7 Glucose 188 H Lactic Acid 2.0 Calcium 10.2 Troponin T High Sens 195 H* Troponin T Hi Sens 2 Hr Urine Color Yellow Urine Clarity Turbid Urine pH 6.0 Ur Specific [place] 1.015 Urine Protein 100 H Urine Glucose (UA) Normal Urine Ketones 5 H Urine Occult Blood 250 H Urine Nitrite Negative Urine Bilirubin Negative Urine Urobilinogen Normal Ur Leukocyte Esterase 500 H Urine RBC > 100 SEEN Urine WBC >100 SEEN Ur Squamous Epith Cells 5-10 SEEN Urine Bacteria 4+ Urine Mucus 0 SEEN 04/18/25 13:10 WBC RBC Hgb Hct MCV MCH MCHC RDW Std Deviation RDW Coeff of Keren Plt Count MPV Immature Gran % (Auto) Neut % (Auto) Lymph % (Auto) [place] % (Auto) Eos % (Auto) Baso % (Auto) Absolute Neuts (auto) Absolute Lymphs (auto) Nucleated RBC % Platelet Estimate Sodium Potassium Chloride Carbon Dioxide Anion Gap BUN Creatinine Estim Creat Clear Calc Est GFR (MDRD) Non-Af BUN/Creatinine Ratio Glucose Lactic Acid Calcium Troponin T High Sens Troponin T Hi Sens 2 Hr 209 H* Urine Color Urine Clarity Urine pH Ur Specific [place] Urine Protein Urine Glucose (UA) Urine Ketones Urine Occult Blood Urine Nitrite Urine Bilirubin Urine Urobilinogen Ur Leukocyte Esterase Urine RBC Urine WBC Ur Squamous Epith Cells Urine Bacteria Urine Mucus Radiography Diagnostic Testing: Clinical Impression(s) from Imaging Studies Chest X-Ray 04/18/25 11:20 IMPRESSION: Cardiomegaly. Vascular congestion mild CHF. Reading Location: [id number] ED attending interpretation 1 view chest x-ray shows cardiomegaly, mild congestion, no infiltrate. EKG Initial EKG: Attestation: I personally reviewed and interpreted this EKG as follows: Interpretation: Sinus Rhythm and No Acute Injury Pattern Comments: Sinus rhythm at 81 bpm, first-degree AV block with frequent PVCs Left axis deviation, LBBB Prior EKG tracings: available for review Prior: Unchanged <Dr. Jabari Chacon MD - Last Filed: 04/18/25 15:16> [facility] Lab Data Labs: Laboratory Results - last 24 hr 04/18/25 04/18/25 04/18/25 10:40 11:48 11:53 WBC 18.5 H RBC 4.01 L Hgb 12.1 Hct 36.5 L MCV 91.0 MCH 30.2 MCHC 33.2 RDW Std Deviation 41.1 RDW Coeff of Keren 12.4 Plt Count 214 MPV 9.9 Immature Gran % (Auto) 1.100 H Neut % (Auto) 94.5 H Lymph % (Auto) 2.8 L [place] % (Auto) 1.2 Eos % (Auto) 0.1 Baso % (Auto) 0.3 Absolute Neuts (auto) 17.5 H Absolute Lymphs (auto) 0.52 L Nucleated RBC % 0 Platelet Estimate A Sodium 138 Potassium 4.8 Chloride 104 Carbon Dioxide 19.0 L Anion Gap 15 BUN 29 H Creatinine 1.53 H Estim Creat Clear Calc 20.49 L Est GFR (MDRD) Non-Af 32 L BUN/Creatinine Ratio 18.7 Glucose 188 H Lactic Acid 2.0 Calcium 10.2 Troponin T High Sens 195 H* Troponin T Hi Sens 2 Hr Urine Color Yellow Urine Clarity Turbid Urine pH 6.0 Ur Specific [place] 1.015 Urine Protein 100 H Urine Glucose (UA) Normal Urine Ketones 5 H Urine Occult Blood 250 H Urine Nitrite Negative Urine Bilirubin Negative Urine Urobilinogen Normal Ur Leukocyte Esterase 500 H Urine RBC > 100 SEEN Urine WBC >100 SEEN Ur Squamous Epith Cells 5-10 SEEN Urine Bacteria 4+ Urine Mucus 0 SEEN 04/18/25 13:10 WBC RBC Hgb Hct MCV MCH MCHC RDW Std Deviation RDW Coeff of Keren Plt Count MPV Immature Gran % (Auto) Neut % (Auto) Lymph % (Auto) [place] % (Auto) Eos % (Auto) Baso % (Auto) Absolute Neuts (auto) Absolute Lymphs (auto) Nucleated RBC % Platelet Estimate Sodium Potassium Chloride Carbon Dioxide Anion Gap BUN Creatinine Estim Creat Clear Calc Est GFR (MDRD) Non-Af BUN/Creatinine Ratio Glucose Lactic Acid Calcium Troponin T High Sens Troponin T Hi Sens 2 Hr 209 H* Urine Color Urine Clarity Urine pH Ur Specific [place] Urine Protein Urine Glucose (UA) Urine Ketones Urine Occult Blood Urine Nitrite Urine Bilirubin Urine Urobilinogen Ur Leukocyte Esterase Urine RBC Urine WBC Ur Squamous Epith Cells Urine Bacteria Urine Mucus Radiography Diagnostic Testing: Clinical Impression(s) from Imaging Studies Chest X-Ray 04/18/25 11:20 IMPRESSION: Cardiomegaly. Vascular congestion mild CHF. Reading Location: [facility] Management Discussion w/another healthcare provider: Hospitalist and Integrity Director (Dr. Rendon [facility], agrees with below including central line and pressors and ICU admission) Treatment and Re-Evaluation Comments:: I have personally performed a face to face assessment of the patient and have reviewed the FRANNIE Note. I performed a substantive portion of the visit including all aspects of the following. My emanuel findings include: History is generally weak for about a week, had a minor fall, not feeling well no other focal complaints. At baseline mental status per daughter. Is full code. Exam is symmetric peripheral neurologic exam. Lungs are clear, heart is for the most part regular. Abdomen soft nontender nondistended no CVA tenderness. Somnolent but alerts easily to voice. Medical Decison Making septic workup performed. Urine suspicious for infection, directed antibiotics to her that. After 2 L of IV fluids, her pressure is 89/63, and just a little bit prior to that it was 79/53. Prior echo showing EF 20%, given all of this I recommend central line for pressors, which will decrease her need for IV fluids; she is already hypoxic and the concern is that she may have some mild CHF. Will elevated troponin will be trended, this could be consistent with hypoxemia, or LUDIN, her chronic cardiomyopathy, NSTEMI, or all of the above. Other additions or changes: Central line not able to be placed in the emergency department see the procedure note. With her pressures better and her lactate at 2.0, discussed with Dr. Rendon, he advised that we continue low-dose Levophed up to 10 mcgs through peripheral line for now as needed. Procedures <Dr. Jabari Chacon MD - Last Filed: 04/18/25 15:16> Other Procedures Procedure(s): Central line placement: Central line indicated due to persistent hypotension. Informed consent obtained from daughter HCPOA all questions answered. Right subclavian vein and internal jugular vein sites prepped and draped in a sterile fashion, full body sheet placed, locally anesthetized with total 8 cc of plain 1% lidocaine, found dark red nonpulsatile blood via finder needle very briefly and right subclavian site but not able to be reproduced, so moved to right internal jugular site with ultrasound sterile guidance, was able to see the relatively large vessel lateral to the carotid but easily collapsible with needle and gentle pressure, and although I was able to place wire several times, and verifying with Angiocath there was no blood able to be aspirated multiple times, and given that patient was uncomfortable and had persistent elevated pressures over 100 we stopped. Tolerated well, no complications Otherwise, no carotid/arterial bleeding or expanding neck hematoma. <Dr. Jabari Chacon MD - Last Filed: 04/18/25 15:16> Critical Care Time Critical Care Time: Yes Critical care time (excluding procedures): 30-74 minutes (38 minutes not including procedure time), Including time spent:, Discussing w/Patient &/or Family/Developer Analyst, Discussing w/Consultants, Arranging Admission or Transfer and Performing Direct Patient Care at Bedside Discharge Plan Dx/Rx/DC Orders Clinical Impression: Septic shock, Acute UTI, Acute kidney injury, Nonischemic cardiomyopathy, Hypoxemia, Elevated troponin, Congestive heart failure Disposition Disposition: Acute Care Hospital [facility] Discharge Date/Time: 04/18/25 15:38
--- NOTE | 2025-04-18 11:20 | RAD_ITS ---
PROCEDURE: CHEST 1 VIEW (PORTABLE) 04/18/2025 REASON FOR EXAM: DYSPNEA TECHNIQUE: Frontal view of the chest. COMPARISON: Prior study dated August 10, 2024. FINDINGS: Hardware: EKG electrodes are seen. A left-sided ICD is seen. Heart: Cardiomegaly. Lungs: Vascular congestion and mild CHF. Bones: Degenerative changes are identified within the thoracic spine. Deformity of the proximal portion of the right humerus in keeping with healed fracture. Other: Calcification of the aortic arch. RAD/Chest 1 View (Portable) IMPRESSION: Cardiomegaly. Vascular congestion mild CHF. Reading Location: [id number]
[2025-04-18 11:28] LABS: Hematocrit 36.5 % (37-47); Hemoglobin 12.1 g/dL (12.0-15.0); Immature Granulocytes Count 0.210 X10^3/uL (0.0-0.0); Mean Corp Hgb Conc 33.2 g/dL (32-36); Mean Corpuscular Volume 91.0 fL (81-99); Mean Platelet Vol. 9.9 fl (6.2-12.0); NRBC Flagged by Analyzer 0 % (0-5); POSITIVE DIFFERENTIAL YES; POSITIVE MORPHOLOGY YES; Platelet Count 214 K/mm3 (150-450); RBC Distribution Width CV 12.4 % (11.6-14.6); RBC Distribution Width SD 41.1 fl (35.1-43.9); Red Blood Count 4.01 M/mm3 (4.2-5.4); White Blood Count 18.5 K/mm3 (4.4-11.0)
[2025-04-18 11:38] LABS: Differential Indicated SCAN CRITERIA MET
[2025-04-18] MEDS: 0.9% Normal Saline (1000mL) 1,000 ML 999 ML IV ×2 (11:54→12:01)
[2025-04-18 12:07] LABS: Mucous, Urine 0 SEEN /hpf (<or=2+)
[2025-04-18 12:10] LABS: Color, Urine Yellow (Yellow); Glucose, Dipstick Normal (Normal); Ketone-Dipstick 5 mg/dl (Negative); Leukocyte Esterase-Dipstick 500 /ul (Negative); Nitrite-Dipstick Negative (Negative); Occult Blood-Urine 250 /ul (Negative); Protein-Dipstick 100 mg/dl (Negative); Specific Gravity, Urine 1.015 (1.002-1.030); Urine Bilirubin Dipstick Negative (Negative)
[2025-04-18 12:21] LABS: Red Blood Cells-Urine > 100 SEEN /hpf (0-5)
[2025-04-18 12:22] LABS: Squamous Epithelial Cells - UA 5-10 SEEN /hpf (5-10)
[2025-04-18 12:24] LABS: Anion Gap 15 (5-15); BUN 29 mg/dL (4-19); BUN/Creat Ratio 18.7 RATIO (10-20); Calcium,Total 10.2 mg/dL (7.6-11.0); Carbon Dioxide 19.0 mmol/L (21.0-32.0); Chloride 104 mmol/L (98-108); Estimated Creatinine Clearance 20.49 ml/min (50-250); Glucose 188 mg/dL (70-99); Potassium 4.8 mmol/L (3.3-5.1); Troponin T High Sensitivity 195 ng/L (<=14)
[2025-04-18] MEDS: Ceftriaxone 2 GM in 0.9% Normal Saline (50mL MB+) 50 ML IV (12:56)
--- NOTE | 2025-04-18 13:24 | EX.PCM.CONCC ---
Assessment & Plan Assessment/Plan (1) Sepsis: PLAN: Plan RECOMMENDATIONS: 1. Empiric antimicrobials, pending infectious workup. 2. Cautious use of fluids given underlying cardiomyopathy. 3. Agree with initiation of vasopressor support to maintain hemodynamic stability, if needed. 4. DVT prophylaxis. 5. Encourage incentive spirometer use and mobilize patient as tolerated. IMPRESSIONS: 1. Sepsis The patient presented with sepsis due to suspected urinary tract source of infection with acute sepsis related organ dysfunction as evidenced by fluid refractory hypotension. Lactate was not notably elevated. There is underlying concern for possible fluid overload with further volume resuscitation, given the patient's history of cardiomyopathy. Therefore, agree with initiation of vasopressor support, if clinically indicated, to maintain hemodynamic stability. Empiric antimicrobials will be continued, pending infectious workup. It should be noted that the patient last had a pansensitive E. coli isolated from her urine in October 2024. 2. Mild LUDIN Most likely prerenal in etiology in the setting of #1 and recent gastrointestinal losses. Anticipate improvement with volume expansion and stabilization of hemodynamic status. Continue to monitor urine output. No current indication for renal replacement therapy. 3. History of nonischemic cardiomyopathy status post ICD/hypertension Complicates care, management, recovery and prognosis. Continue to hold home antihypertensives for now. This note was generated with qualifyor dictation software. It may contain incorrect words, spelling, and punctuation that were not noted in checking the note before signing. HPI Consult Data Date of Consult: 04/18/25 HPI Narrative Reason for Consultation: Sepsis HPI Narrative: The patient is an 89-year-old female, with a history as outlined below, who presented to the emergency department via EMS from her intermediate facility with generalized malaise, nausea, vomiting or diarrhea of approximately 1 days duration. The patient's family reported that she apparently fell 1 week ago and was apparently acting strangely on Monday. Family then reported that they spoke with the patient yesterday on the phone and she seemed more alert and like herself. The patient denied any abdominal pain, dysuria or hematuria. The patient has a documented history of coronary artery disease, heart failure with reduced ejection fraction, atrial fibrillation, diabetes mellitus, hypertension and hyperlipidemia. On presentation to the emergency department, the patient was documented to be afebrile but was notably hypotensive with a blood pressure of 60/50 mmHg. The patient was tachypneic and requiring 5 L/min of supplemental oxygen to maintain appropriate saturations. Laboratory evaluation was notable for a white blood cell count of 18,000 with a hemoglobin of 12.1 g/dL. Chemistry profile was notable for a lactate of 2.0 with a creatinine of 1.53. Troponin was elevated at 195. Urine analysis was positive for leukocyte esterase and 4+ urine bacteria. The patient was ordered to receive gentle IV fluid hydration. However, there were concerns for underlying congestive heart failure and hypoxemia. Therefore, the full fluid bolus per sepsis protocol was not administered. Rather, I discussed the case with the ED provider, who indicated his intention to place a central venous catheter and initiate the patient on Levophed if she were to remain hemodynamically unstable. Chest x-ray demonstrated mild pulmonary vascular congestion. Antimicrobials were administered. The patient's last urine culture from October 2024 was notable for pansensitive E. coli. Surface echocardiogram from February 2023 demonstrated an ejection fraction of 20% with severe global hypokinesis of the LV. [facility] Medical History Diabetes Atrial fibrillation Congestive heart failure (CHF) DVT (deep venous thrombosis) Pacemaker Proximal humerus fracture Hemorrhagic shock Nonischemic cardiomyopathy Chronic systolic (congestive) heart failure Essential (primary) hypertension Secondary pulmonary 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, implant or graft Ventricular fibrillation Atherosclerotic heart disease of [place] coronary artery without angina pectoris Left bundle-branch block Ventricular tachycardia Cystocele with 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 DM2 (diabetes mellitus, type 2) Dyslipidemia Home Medications ?Medication ?Instructions ?Recorded ?Last Taken ?Type [id number] 8 mg-folic 400 1 tab PO DAILY supplement 02/19/24 04/18/25 History mcg-K 50 mcg-lutein 300 mcg tablet lisinopril 20 mg tablet 20 mg PO QHS cardiac 03/25/24 04/17/25 History acetaminophen 500 mg tablet 1,000 mg PO BID pain 08/11/24 04/18/25 History polyethylene glycol 3350 17 17 g PO DAILY 10/17/24 04/18/25 History gram/dose oral powder carvedilol 25 mg tablet 12.5 mg PO BID heart/bp 04/18/25 04/18/25 History Allergy/AdvReac Type Severity Reaction Status Date / Time No Known Allergies Allergy Verified 04/18/25 11:00 Family History Mother CAD (coronary artery disease) CHF (congestive heart failure) Father Diabetes Surgical History History of left heart catheterization (12/17/12) History of implantable cardiac defibrillator (ICD) (01/31/13) Cataract H/O: hysterectomy H/O tubal ligation History of hip replacement Social History household members: none Smoking Status: Never smoker alcohol intake: never substance use type: does not use caffeine: Yes Type: coffee Number of servings: 2 what type of physical activity do you participate in: none seatbelt use: always do you feel safe at home: Yes ROS ROS Narrative 10 systems were reviewed with pertinent positives as noted in the HPI above. Physical Exam Const alert and no apparent distress General Appearance: cooperative and ill appearing HEENT normocephalic and head/scalp atraumatic HEENT Narrative: Dry mucous membranes Eyes PERRL, EOMs intact bilaterally and conjunctivae normal Neck supple General: trachea midline Chest inspection of chest normal Resp Effort and Inspection: tachypneic Auscultation: Negative for rales, rhonchi or wheezes Cardio regular rate and regular rhythm GI normal to inspection, nondistended, normoactive bowel sounds Extremity no clubbing, cyanosis or edema Skin no rashes or lesions noted Neuro CN's II-XII intact bilaterally, moves all extremities and no focal motor deficits Psych Mood & Affect: flat affect Lab / Micro Data 04/18/25 10:40 04/18/25 10:40 Labs: Laboratory Results - last 24 hr 04/18/25 10:40: WBC 18.5 H, RBC 4.01 L, Hgb 12.1, Hct 36.5 L, MCV 91.0, MCH 30.2, MCHC 33.2, RDW Std Deviation 41.1, RDW Coeff of Keren 12.4, Plt Count 214, MPV 9.9, Immature Gran % (Auto) 1.100 H, Neut % (Auto) 94.5 H, Lymph % (Auto) 2.8 L, [place] % (Auto) 1.2, Eos % (Auto) 0.1, Baso % (Auto) 0.3, Absolute Neuts (auto) 17.5 H, Absolute Lymphs (auto) 0.52 L, Nucleated RBC % 0, Platelet Estimate A, Sodium 138, Potassium 4.8, Chloride 104, Carbon Dioxide 19.0 L, Anion Gap 15, BUN 29 H, Creatinine 1.53 H, Estim Creat Clear Calc 20.49 L, Est GFR (MDRD) Non-Af 32 L, BUN/Creatinine Ratio 18.7, Glucose 188 H, Calcium 10.2, Troponin T High Sens 195 H* 04/18/25 11:48: Urine Color Yellow, Urine Clarity Turbid, Urine pH 6.0, Ur Specific [place] 1.015, Urine Protein 100 H, Urine Glucose (UA) Normal, Urine Ketones 5 H, Urine Occult Blood 250 H, Urine Nitrite Negative, Urine Bilirubin Negative, Urine Urobilinogen Normal, Ur Leukocyte Esterase 500 H, Urine RBC > 100 SEEN, Urine WBC >100 SEEN, Ur Squamous Epith Cells 5-10 SEEN, Urine Bacteria 4+, Urine Mucus 0 SEEN 04/18/25 11:53: Lactic Acid 2.0 Imaging Radiology Impression Chest X-Ray 04/18/25 11:20 IMPRESSION: Cardiomegaly. Vascular congestion mild CHF. Reading Location: [id number] Sepsis Attestation Sepsis Alert: Yes Sepsis Attestation: Agree w/Sepsis Date exam was performed: 04/18/25 Time exam was performed: 13:35 Possible Source of Sepsis: Genitourinary Sepsis Organ Dysfunction Criteria Present: SBP < 90 mmHg or MAP < 65 mmHg Fluid Resuscitation Fluid resuscitation indicated?: Yes Fluid Resuscitation ordered: 30 ml/kg fluid bolus ordered Amount of fluid ordered: 2,000 Sepsis Note Date exam was performed: 04/18/25 Time exam was performed: 13:37 Sepsis Attestation: Sepsis re-evaluation was performed Response to fluids: Non Fluid responsive hypotension and Vasopressors started Charges/Coding Visit Charges Inpatient E&M: 60656 Init Hosp L3
[2025-04-18 13:44] LABS: Troponin T High Sens 2 HR 209 ng/L (<=14)
--- NOTE | 2025-04-18 13:51 | PCM.HP.STD ---
HPI - General General Date of Service: 04/18/25 Chief Complaint: malaise. HPI Narrative NICOLAS JACOBSON, is a 89 F who presents with complaints of malaise. This is a 89-year-old female with history of cardiomyopathy who just felt weak. Patient resides at [facility] and had a fall a week ago. But since Monday has just been feeling overall more lethargic. Presented to the emergency room for evaluation. In the emergency room, patient noted to be hypotensive and as she did receive 2 L of IV fluid. Continue to be remained hypotensive and the plan was for a triple-lumen catheter and to initiate pressor agents. She had a workup as well that chest x-ray was concerning for pulmonary vascular congestion and as well as she did require being placed on oxygen while she was here after the IV fluid so no additional IV fluids were administered. And she had received ceftriaxone for what looks like a urinary tract infection on her urinalysis. Currently, the patient is lying in bed and not [place] of any discomfort. [facility] Medical History Diabetes Atrial fibrillation Congestive heart failure (CHF) DVT (deep venous thrombosis) Pacemaker Proximal humerus fracture Hemorrhagic shock Nonischemic cardiomyopathy Chronic systolic (congestive) heart failure Essential (primary) hypertension Secondary pulmonary 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, implant or graft Ventricular fibrillation Atherosclerotic heart disease of [place] coronary artery without angina pectoris Left bundle-branch block Ventricular tachycardia Cystocele with 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 DM2 (diabetes mellitus, type 2) Dyslipidemia Home Medications ?Medication ?Instructions ?Recorded ?Last Taken ?Type [id number] 8 mg-folic 400 1 tab PO DAILY supplement 02/19/24 04/18/25 History mcg-K 50 mcg-lutein 300 mcg tablet lisinopril 20 mg tablet 20 mg PO QHS cardiac 03/25/24 04/17/25 History acetaminophen 500 mg tablet 1,000 mg PO BID pain 08/11/24 04/18/25 History polyethylene glycol 3350 17 17 g PO DAILY 10/17/24 04/18/25 History gram/dose oral powder carvedilol 25 mg tablet 12.5 mg PO BID heart/bp 04/18/25 04/18/25 History Allergy/AdvReac Type Severity Reaction Status Date / Time No Known Allergies Allergy Verified 04/18/25 11:00 Family History Mother CAD (coronary artery disease) CHF (congestive heart failure) Father Diabetes Surgical History History of left heart catheterization (12/17/12) History of implantable cardiac defibrillator (ICD) (01/31/13) Cataract H/O: hysterectomy H/O tubal ligation History of hip replacement Social History household members: none Smoking Status: Never smoker alcohol intake: never substance use type: does not use caffeine: Yes Type: coffee Number of servings: 2 what type of physical activity do you participate in: none seatbelt use: always do you feel safe at home: Yes ROS ROS Narrative All review of systems were negative except as mentioned above in the history of present illness and the other review of systems. Vital Signs Vital Signs Vital Signs: 04/18/25 11:00 04/18/25 11:04 04/18/25 11:04 Temperature 36.7 C 36.7 C Temperature Source Oral Oral Pulse Rate 61 98 Respiratory Rate 26 H 25 H Respiratory Effort Normal Respiratory Pattern Normal Blood Pressure 60/50 L 127/114 H Blood Pressure Mean 53 118 Pulse Ox 91 92 Oxygen Delivery Method Nasal Cannula Nasal Cannula Oxygen Flow Rate (L/min) 5 5 04/18/25 11:56 04/18/25 12:00 04/18/25 13:00 Temperature 36.9 C 36.6 C 36.6 C Temperature Source Oral Core Core Pulse Rate 78 79 81 Respiratory Rate 20 H 24 H 24 H Respiratory Effort Respiratory Pattern Blood Pressure 83/34 L 91/54 L 89/63 L Blood Pressure Mean 50 66 71 Pulse Ox 94 95 97 Oxygen Delivery Method Nasal Cannula Nasal Cannula Nasal Cannula Oxygen Flow Rate (L/min) 5 5 4 04/18/25 13:08 04/18/25 13:13 Temperature 36.6 C Temperature Source Pulse Rate 81 Respiratory Rate 24 H Respiratory Effort Respiratory Pattern Blood Pressure 89/63 L 121/90 H Blood Pressure Mean 71 100 Pulse Ox 97 Oxygen Delivery Method Oxygen Flow Rate (L/min) Weight Weight: 61.9 kg Body Mass Index (BMI) 26.6 Physical Exam Narrative POCUS: With the curvilinear probe, 10 to visualize her heart which was seen but much of it was obscured by bowel gas. Looking at the IVC there was really not good imaging due to overlying bowel gas but did appear to be dilated. Unable to fully measure but did not appear to have any collapsibility with respirations. Const alert, oriented x3 and no apparent distress Constitutional Narrative: Sleep First walked in but easily awoke. General Appearance: cooperative HEENT normocephalic and head/scalp atraumatic Resp normal respiratory effort, no retractions, no use of accessory muscles and clear to auscultation bilaterally Resp Narrative: Coarse breath sounds bilaterally Cardio regular rate, regular rhythm, S1 normal heart sound and S2 normal heart sound GI normal to inspection, nondistended, normoactive bowel sounds, soft to palpation, non-tender, non-distended and hepatosplenomegaly Extremity normal to inspection Neuro Sensorium / Orientation: awake, alert, oriented to person, oriented to place and oriented to time Psych affect normal Results Lab / Micro Data 04/18/25 10:40 04/18/25 10:40 Labs: Laboratory Results - last 24 hr 04/18/25 10:40: WBC 18.5 H, RBC 4.01 L, Hgb 12.1, Hct 36.5 L, MCV 91.0, MCH 30.2, MCHC 33.2, RDW Std Deviation 41.1, RDW Coeff of [place] 12.4, Plt Count 214, MPV 9.9, Immature Gran % (Auto) 1.100 H, Neut % (Auto) 94.5 H, Lymph % (Auto) 2.8 L, [place] % (Auto) 1.2, Eos % (Auto) 0.1, Baso % (Auto) 0.3, Absolute Neuts (auto) 17.5 H, Absolute Lymphs (auto) 0.52 L, Nucleated RBC % 0, Platelet Estimate A, Sodium 138, Potassium 4.8, Chloride 104, Carbon Dioxide 19.0 L, Anion Gap 15, BUN 29 H, Creatinine 1.53 H, Estim Creat Clear Calc 20.49 L, Est GFR (MDRD) Non-Af 32 L, BUN/Creatinine Ratio 18.7, Glucose 188 H, Calcium 10.2, Troponin T High Sens 195 H* 04/18/25 11:48: Urine Color Yellow, Urine Clarity Turbid, Urine pH 6.0, Ur Specific [place] 1.015, Urine Protein 100 H, Urine Glucose (UA) Normal, Urine Ketones 5 H, Urine Occult Blood 250 H, Urine Nitrite Negative, Urine Bilirubin Negative, Urine Urobilinogen Normal, Ur Leukocyte Esterase 500 H, Urine RBC > 100 SEEN, Urine WBC >100 SEEN, Ur Squamous Epith Cells 5-10 SEEN, Urine Bacteria 4+, Urine Mucus 0 SEEN 04/18/25 11:53: Lactic Acid 2.0 04/18/25 13:10: Troponin T Hi Sens 2 Hr 209 H* Imaging Radiology Impression Chest X-Ray 04/18/25 11:20 IMPRESSION: Cardiomegaly. Vascular congestion mild CHF. Reading Location: [id number] Assessment & Plan Assessment/Plan (1) Septic shock: PLAN: Secondary to UTI Received ceftriaxone in the emergency room and will continue on the floor for now. Patient received 2 L of IV fluid in the emergency room and has chest x-ray concerning for pulmonary vascular congestion so no additional IV fluids will be administered at this time given potential for worsening CHF. Additionally POCUS exam is concern for volume overload with what appears to be dilated, now collapsible IVC. I spoke with the ED physician who is planning on doing a triple-lumen catheter at bedside. Patient be admitted to the ICU and patient will be ordered pressor agents. Follow up cultures Critical care consult. (2) UTI (urinary tract infection): PLAN: Previously has been pansensitive E. coli sensitive to ceftriaxone so we will continue with the ceftriaxone for now (this was from October 2024) Will check an ultrasound to evaluate for any pyelonephritis Follow-up urine culture (3) HFrEF (heart failure with reduced ejection fraction): PLAN: Acute on chronic. Previous EF of 20% from 2D echocardiogram on February 2023. History of nonischemic cardiomyopathy status post AICD. Will hold off on any diuresis at this time given her septic shock and need for pressors Patient was on 5 L of oxygen upon arrival so I cannot determine whether or not she developed this after the IV fluids or was having this before hand. But would hold off any additional IV fluids because of the heart failure. Will repeat echocardiogram to see if there is been any changes in her EF Holding off on carvedilol and lisinopril given the septic shock. (4) Elevated troponin: PLAN: Type II non-STEMI secondary to demand ischemia from septic shock in a patient with known cardiomyopathy. Will follow-up an echocardiogram. (5) Acute kidney injury: PLAN: Baseline creatinine is 0.83 and today it is 1.53. Did receive IV fluids but as above, we will be holding off any additional IV fluids given her heart failure. Will continue to monitor. Will be checking an ultrasound of the kidneys. PLAN: Plan VTE prophylaxis with enoxaparin Charges/Coding Visit Charges Inpatient E&M: 86871 Init Hosp L3
--- NOTE | 2025-04-18 13:58 | US_ITS ---
PROCEDURE: KIDNEY AND BLADDER 04/18/2025 REASON FOR EXAM: UTI. SEPSIS. TECHNIQUE: KIDNEY AND BLADDER COMPARISON: CT 08/10/2024 FINDINGS: The right kidney measures 10 x 5 x 4 cm, normal echogenicity. There is a 1.7 cm calcification. No hydronephrosis. Multiple simple cysts, largest 7 cm. The left kidney measures 10 x 5 x 4 cm, normal echogenicity. There is a 0.5 cm calcification. Multiple simple cysts, largest 1.3 cm. Bladder is decompressed with catheter in lumen. Surface nodularity of the liver, correlate for medical liver disease. US/Kidney and Bladder IMPRESSION: Bilateral nephrolithiasis. No hydronephrosis or acute renal pathology noted. Reading Location: [place] [id number]
[2025-04-18] MEDS: Norepinephrine 8 MG in 0.9% Normal Saline (250mL Bag) 242 ML 9.4 MG CONT INF (15:27)
--- NOTE | 2025-04-18 15:32 | ED.RN ---
Report called to Montse in ICU
[2025-04-18] MEDS: Lidocaine 1% (20 ml mdv) 20 ML Vial 5 ML INFILT (15:36)
[2025-04-18 16:00] LABS: Reflex Lactate? Y
--- NOTE | 2025-04-18 16:09 | ECHOL_ITS ---
Reason For Study Reason For Study: CHF Procedure This was a limited 2D transthoracic echocardiogram. Exam performed portable in ICU/CCU. Left Ventricle Severely dilated left ventricle. The estimated ejection fraction is 20-25 %. Right Ventricle Normal RV size. Normal systolic function. Atria The left atrium is mildly enlarged. Normal right atrium. Mitral Valve The mitral valve is structurally normal. No prolapse or stenosis seen. Tricuspid Valve Normal tricuspid valve. Aortic Valve Trisinus/trileaflet aortic valve. Pulmonic Valve The pulmonic valve is not well visualized. Great Vessels The aortic root is not well visualized. Pericardium/Pleural No pericardial effusion. MMode/2D Measurements & Calculations LVIDd: 5.4 cm IVSd: 1.5 cm LAV(MOD- bp): 41.5 ml LVIDs: 4.5 cm LVPWd: 1.5 cm LAV(MOD- bp) Indexed: 26.4 ml/m2 FS: 15.8 % LAV(MOD- sp2): 29.3 ml LAV(MOD- sp4): 42.5 ml SV(MOD- sp4): 40.0 ml LVAd ap4: 39.5 cm2 LVAd ap2: 41.6 cm2 LVLd ap4: 9.2 cm LVLd ap2: 9.4 cm SI(MOD- sp4): 25.4 ml/m2 EDV(MOD-sp4): 134.9 ml EDV(MOD-sp2): 150.2 ml EDV(sp4-el): 144.5 ml EDV(sp2-el): 156.4 ml LVAs ap4: 31.0 cm2 LVAs ap2: 33.0 cm2 LVLs ap4: 8.2 cm LVLs ap2: 8.7 cm ESV(MOD-sp4): 94.9 ml ESV(MOD-sp2): 104.4 ml ESV(sp4-el): 99.1 ml ESV(sp2-el): 106.3 ml EF(MOD-sp4): 29.7 % EF(MOD-sp2): 30.5 % EF(sp4-el): 31.4 % SV(MOD-sp2): 45.8 ml SV(sp4-el): 45.4 ml LA A4 area: 16.3 cm2 SI(MOD-sp2): 29.1 ml/m2 RA A4 area: 12.2 cm2 ECHO/Echo, Limited Study Interpretation Summary The estimated ejection fraction is 20-25 %. Severe LV systolic function ICD lead noted on Right side Similiar tp previous TTE in 02/2023 EF was 20% Ordering Physician: Haseeb Herr Referring Physician: Elgin Orozco MD Performed By: Esperanza Wisdom RCS
[2025-04-18 16:43] LABS: Troponin T High Sens 4 HR 239 ng/L (<=14)
--- NOTE | 2025-04-18 20:03 | EKG12_ITS ---
Test Reason : O Blood Pressure : */* mmHG Vent. Rate : 84 BPM Atrial Rate : 84 BPM P-R Int : 214 ms QRS Dur : 148 ms QT Int : 434 ms P-R-T Axes : 54 -43 142 degrees QTcB Int : 512 ms Sinus rhythm with 1st degree A-V block with occasional Premature ventricular complexes Left axis deviation Left bundle branch block Abnormal ECG No previous ECGs available Confirmed by Luis Spears ([id number]), staff editor WISAM GAUTAM ([id number]) on 04/24/2025 6:40:44 AM Referred By: Confirmed By: Luis Spears
[2025-04-19] VITALS (13 sets, daily range): BP systolic 78–123; BP diastolic 39–60; PULSE 69–88; RESP 16–27; TEMP 36.6–37.1; O2SAT 24–95; BMI 26.1
[2025-04-19 08:16] LABS: Hematocrit 29.6 % (37-47); Hemoglobin 10.2 g/dL (12.0-15.0); Mean Corp Hgb Conc 34.5 g/dL (32-36); Mean Corpuscular Volume 90.2 fL (81-99); Mean Platelet Vol. 10.3 fl (6.2-12.0); POSITIVE COUNT YES; POSITIVE DIFFERENTIAL YES; POSITIVE MORPHOLOGY YES; Platelet Count 173 K/mm3 (150-450); RBC Distribution Width CV 12.9 % (11.6-14.6); RBC Distribution Width SD 42.4 fl (35.1-43.9); Red Blood Count 3.28 M/mm3 (4.2-5.4)
[2025-04-19 08:28] LABS: Differential Indicated MANUAL DIFF; White Blood Count 34.6 K/mm3 (4.4-11.0)
[2025-04-19 08:45] LABS: AST(SGOT) 27 U/L (<=31); Alanine Aminotransfer ALT/SGPT 20 U/L (<=34); Albumin, Serum 3.0 g/dL (3.4-4.8); Alkaline Phosphatase 98 U/L (35-104); Anion Gap 11 (5-15); BUN 35 mg/dL (4-19); BUN/Creat Ratio 27.5 RATIO (10-20); Calcium,Total 9.5 mg/dL (7.6-11.0); Carbon Dioxide 19.9 mmol/L (21.0-32.0); Chloride 109 mmol/L (98-108); Estimated Creatinine Clearance 24.70 ml/min (50-250); Globulin 3.0 g/dL (2.2-4.2); Glucose 165 mg/dL (70-99); Potassium 4.7 mmol/L (3.3-5.1)
[2025-04-19 09:04] LABS: Neutrophil-Band 13 % (0-5); Neutrophil-Segmented 80 % (47-70); Total Cells Counted 100 (MANUAL DIFF)
--- NOTE | 2025-04-19 09:28 | CASEMGMT ---
Social Work Pt is admitted from [facility]. 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 Updated clinicals sent to [facility] via [facility]. SW to continue to follow for SNF return. Plan: Return to [place], when medically ready MARCY Davis
[2025-04-19] MEDS: Cefepime HCl 1 GM in 0.9% Normal Saline (50mL MB+) 50 ML IV (10:45)
[2025-04-19] MEDS: 0.9% Saline Lock 10 ML Syringe IV ×2 (10:45→16:11)
[2025-04-19] MEDS: 0.9% Normal Saline (1000mL) 1,000 ML 100 ML IV ×2 (10:45→19:56)
[2025-04-19] MEDS: Ensure Plus High Protein 120 ML LIQUID PO ×2 (10:47→16:17)
--- NOTE | 2025-04-19 12:49 | PN.HOSP_ITS ---
Reason for Visit Chief Complaint: malaise. Subjective Subjective Patient was seen and examined today, she is confused today, I talked to the daughter who is in the room this morning and she states she is usually not confused at the long-term. I confirm with the daughter that the patient is a full code-daughter states that she does not agree with this but she has to go by the patient's wishes. Patient's white blood cell count remains elevated today. she is off pressors. Objective Data Objective Data Vital Signs: Vital Signs Temp Pulse Resp BP Pulse Ox O2 Del Method O2 Flow Rate 98.5 F 81 27 H 104/58 L 93 Room Air 2 04/19/25 08:00 04/19/25 08:00 04/19/25 08:00 04/19/25 08:00 04/19/25 08:00 04/19/25 08:00 04/18/25 16:30 Oxygen Flow Rate (L/min) 2 Oxygen Delivery Method Room Air Weight: 60.3 kg Body Mass Index (BMI) 26.1 Intake & Output: Intake and Output for Last 24 Hours 04/17/25 04/18/25 04/19/25 23:59 23:59 23:59 Intake Total 2396.97 / 2396.97 Output Total 100 / 350 500 / 500 Balance 2296.97 / 2046.97 -500 / -500 Lab / Micro Data 04/19/25 07:45 04/19/25 07:45 Labs: Laboratory Results - last 24 hr 04/18/25 13:10: Troponin T Hi Sens 2 Hr 209 H* 04/18/25 15:20: Lactic Acid 1.6, Troponin T Hi Sens 4Hr 239 H* 04/19/25 07:45: WBC 34.6 H*, RBC 3.28 L, Hgb 10.2 L, Hct 29.6 L, MCV 90.2, MCH 31.1, MCHC 34.5, RDW Std Deviation 42.4, RDW Coeff of Keren 12.9, Plt Count 173, MPV 10.3, Neut % (Auto) Not Reportable, Absolute Neuts (auto) 32.2 H, Absolute Lymphs (auto) 1.04, Total Counted 100, Neutrophils % (Manual) 80 H, Band Neutrophils % 13 H, Lymphocytes % (Manual) 3 L, Monocytes % (Manual) 1, M etamyelocytes % 3 H, Platelet Estimate ADEQUATE, Sodium 139, Potassium 4.7, C hloride 109 H, Carbon Dioxide 19.9 L, Anion Gap 11, BUN 35 H, Creatinine 1.26 H, Estim Creat Clear Calc 24.70 L, Est GFR (MDRD) Non-Af 41 L, BUN/Creatinine Ratio 27.5 H, Glucose 165 H, Calcium 9.5, Total Bilirubin 0.26, AST 27, ALT 20, Alkaline Phosphatase 98, Total Protein 6.0, Albumin 3.0 L, Globulin 3.0, Albumin/Globulin Ratio 1.0 Micro: Microbiology 04/18/25 11:48 Urine Catheter - Catheter Urine Culture - Preliminary Presumptive E. coli Radiography Diagnostic Testing: Radiology Impression Renal Ultrasound 04/18/25 13:58 IMPRESSION: Bilateral nephrolithiasis. No hydronephrosis or acute renal pathology noted. Reading Location: [place] [address] Physical Exam Const alert and no apparent distress Constitutional Narrative: Patient is confused General Appearance: cooperative, well kempt and well developed Orientation / Consciousness: awake and oriented to person HEENT normocephalic, head/scalp atraumatic and moist oral mucous membranes Eyes PERRL, EOMs intact bilaterally and conjunctivae normal Neck supple, no JVD, thyroid normal and no carotid bruits General: trachea midline Resp normal respiratory effort, no retractions, no use of accessory muscles and clear to auscultation bilaterally Auscultation: Negative for rales, rhonchi or wheezes Cardio regular rate, regular rhythm, S1 normal heart sound, S2 normal heart sound, no murmurs, no rub and no gallops GI normal to inspection, nondistended, normoactive bowel sounds, soft to palpation, non-tender and non-distended Extremity no clubbing, cyanosis or edema Skin no rashes or lesions noted General Skin Exam: no breakdown Neuro CN's II-XII intact bilaterally, moves all extremities, no focal motor deficits and no sensory deficits noted Neuro Narrative: Patient is confused Sensorium / Orientation: awake and alert Speech: speech normal Psych Psych Narrative: Patient is confused Assessment & Plan Assessment/Plan (1) Septic shock: PLAN: Plan 1. Septic shock secondary to UTI-I elected to broaden the patient's coverage and stopped her Rocephin and placed her on cefepime, cultures are pending. Patient appears stable for transfer to PCU for further care #2 metabolic encephalopathy secondary to #1-complicates care, management, recovery, and prognosis, supportive care will be offered #3 cardiomyopathy-patient had an echocardiogram performed today, verbal report that I received states that the patient's EF is approximately 20%, I will be awaiting official read out today 4 essential hypertension-patient's hypertensive meds are being held at this time due to her blood pressure Total clinical time spent by myself addressing the patient's medical issues, reviewing all of her data, and collaborating the patient's care team: 35 minutes Charges/Coding Visit Charges Inpatient E&M: 39568 Subs Hosp L2
--- NOTE | 2025-04-19 13:29 | PN.CC_ITS ---
Objective Data Objective Data Vital Signs: Vital Signs Last response 3 Temperature 36.9 C 04/19/25 08:00 Temperature Source Core 04/19/25 08:00 Pulse Rate 81 04/19/25 08:00 Pulse Strength Weak (1+) 04/18/25 22:00 Respiratory Rate 27 H 04/19/25 08:00 Respiratory Effort Normal 04/19/25 04:00 Respiratory Depth Normal 04/19/25 04:00 Respiratory Pattern Normal 04/19/25 04:00 Blood Pressure 104/58 L 04/19/25 08:00 Blood Pressure Mean 73 04/19/25 08:00 Blood Pressure Source Monitor 04/19/25 08:00 Blood Pressure Position Left Lateral 04/19/25 08:00 Blood Pressure Location Right Arm 04/19/25 08:00 Pulse Ox 93 04/19/25 08:00 Oxygen Delivery Method Room Air 04/19/25 08:00 Oxygen Flow Rate (L/min) 2 04/18/25 16:30 I&O: I&O Last 24 Hours 3 04/18/25 04/19/25 04/19/25 23:59 11:59 23:59 Intake Total 2096.97 / 2396.97 Output Total 100 / 350 500 / 500 Balance 1996.97 / 2046.97 -500 / -500 I&O: Total Stay 3 04/18/25 10:59 thru 04/19/25 10:35 Intake Total 2396.97 Output Total 600 Balance 1796.97 Current Meds Ordered / Administered: Current meds ordered / Administered 3 Generic Name Dose Route Start Last Admin Trade Name Freq PRN Reason Stop Dose Admin Acetaminophen 1,000 mg 04/18/25 22:00 04/19/25 10:47 Acetaminophen 500 Mg Tablet PO 1,000 mg BID TOM Administration Enoxaparin Sodium 30 mg 04/19/25 06:00 04/19/25 06:19 Enoxaparin 30 Mg/0.3 Ml Syringe SC 30 mg DAILY@0600 TOM Administration Cefepime HCl 1 gm/ Sodium 50 mls @ 100 mls/hr 04/19/25 10:00 04/19/25 10:45 Chloride IV 100 mls/hr Q24 TOM Administration Sodium Chloride 1,000 mls @ 100 mls/hr 04/19/25 09:45 04/19/25 10:45 IV 100 mls/hr .Q10H TOM Administration Nutritional Formula (Lactose Free) 120 ml 04/19/25 12:00 04/19/25 10:47 Ensure Plus High Protein 120 Ml Liquid PO 120 ml TIDCM TOM Administration Ondansetron HCl 4 mg 04/18/25 16:09 Ondansetron 4 Mg/2 Ml Vial IV Q8H PRN PRN NAUSEA/VOMITING Sodium Chloride 10 - 40 ml 04/18/25 16:43 04/19/25 10:45 0.9% Saline Lock 10 Ml Syringe IV 20 ml UD PRN Administration SALINE FLUSH Lab / Micro Data 04/19/25 07:45 04/19/25 07:45 Labs: Laboratory Results - last 24 hr 04/18/25 13:10: Troponin T Hi Sens 2 Hr 209 H* 04/18/25 15:20: Lactic Acid 1.6, Troponin T Hi Sens 4Hr 239 H* 04/19/25 07:45: WBC 34.6 H*, RBC 3.28 L, Hgb 10.2 L, Hct 29.6 L, MCV 90.2, MCH 31.1, MCHC 34.5, RDW Std Deviation 42.4, RDW Coeff of Keren 12.9, Plt Count 173, MPV 10.3, Neut % (Auto) Not Reportable, Absolute Neuts (auto) 32.2 H, Absolute Lymphs (auto) 1.04, Total Counted 100, Neutrophils % (Manual) 80 H, Band Neutrophils % 13 H, Lymphocytes % (Manual) 3 L, Monocytes % (Manual) 1, M etamyelocytes % 3 H, Platelet Estimate ADEQUATE, Sodium 139, Potassium 4.7, C hloride 109 H, Carbon Dioxide 19.9 L, Anion Gap 11, BUN 35 H, Creatinine 1.26 H, Estim Creat Clear Calc 24.70 L, Est GFR (MDRD) Non-Af 41 L, BUN/Creatinine Ratio 27.5 H, Glucose 165 H, Calcium 9.5, Total Bilirubin 0.26, AST 27, ALT 20, Alkaline Phosphatase 98, Total Protein 6.0, Albumin 3.0 L, Globulin 3.0, Albumin/Globulin Ratio 1.0 Micro: Microbiology 04/19/25 11:48 Urine Catheter - Joseph Streptococcus pneumoniae Antigen (M - Final 04/18/25 11:48 Urine Catheter - Catheter Urine Culture - Preliminary Presumptive E. coli 04/18/25 11:48 Urine Catheter - Catheter Legionella Antigen - Final Imaging Radiology Impression Renal Ultrasound 04/18/25 13:58 IMPRESSION: Bilateral nephrolithiasis. No hydronephrosis or acute renal pathology noted. Reading Location: [place] [address] Assessment and Plan . Assessment and plan: Chart and data reviewed Condition d/w ICU staff HD stable - vasopressors off UCX reveals GNR Downgrading out of ICU We are available as needed.
[2025-04-20] MEDS: MELATONIN 3 MG TABLET PO ×2 (00:30→20:49)
--- NOTE | 2025-04-20 02:29 | EKG12_ITS ---
Test Reason : TACHYCARDIA Blood Pressure : */* mmHG Vent. Rate : 115 BPM Atrial Rate : * BPM P-R Int : * ms QRS Dur : 176 ms QT Int : 406 ms P-R-T Axes : * -47 108 degrees QTcB Int : 561 ms Atrial fibrillation with rapid ventricular response with premature ventricular or aberrantly conducted complexes Left axis deviation Left bundle branch block Abnormal ECG When compared with ECG of 20-Apr-2025 03:00, MANUAL COMPARISON REQUIRED DATA IS UNCONFIRMED Confirmed by ANTOINETTE PUENTES, KHADIJAH ([id number]), newspaper managing editor WISAM GAUTAM ([id number]) on 04/21/2025 1:01:57 PM Referred By: Confirmed By: KHADIJAH CURRY MD
[2025-04-20 02:45] VITALS: BP 140/71; PULSE 80; RESP 16; TEMP 36.8; O2SAT 93
[2025-04-20 03:27] VITALS: BMI 27.3
[2025-04-20] MEDS: 0.9% Normal Saline (1000mL) 1,000 ML 100 ML IV ×2 (04:31→14:47)
[2025-04-20 04:39] VITALS: BP 138/78; PULSE 113; RESP 18; TEMP 37.2; O2SAT 93
--- NOTE | 2025-04-20 04:59 | PCM.HOSP.N ---
Hospitalist Note Patient with intermittent PAF with RVR, BP appropriate, will add back coreg with dose now. From records appears prior UGIB history, possibly reason for no anticoagulant as history is known.
[2025-04-20 07:03] LABS: Magnesium 1.8 mg/dL (1.5-2.2)
[2025-04-20 09:21] VITALS: BP 146/73; PULSE 84; RESP 17; TEMP 36.5; O2SAT 96
[2025-04-20 09:30] VITALS: O2SAT 96
[2025-04-20] MEDS: Cefepime HCl 1 GM in 0.9% Normal Saline (50mL MB+) 50 ML IV (09:47)
[2025-04-20] MEDS: Ensure Plus High Protein 120 ML LIQUID PO ×2 (12:35→17:02)
--- NOTE | 2025-04-20 13:53 | PCM.CONS.C ---
Assessment & Plan Assessment/Plan (1) Sepsis: (2) Congestive heart failure: (3) UTI (urinary tract infection): (4) Elevated troponin: (5) Acute kidney injury: (6) Chronic HFrEF (heart failure with reduced ejection fraction): (7) Nonischemic cardiomyopathy: (8) HFrEF (heart failure with reduced ejection fraction): PLAN: Cardiac care plan recommendations; 89-year-old patient presented with suspected urinary tract infection with sepsis And leukocytosis with renal insufficiency and hypotension Multiple other medical problems with mild LUDIN Patient was admitted to ICU and transferred to the progressive care unit She has a history of nonischemic cardiomyopathy with severe LV dysfunction A repeat echocardiogram showed EF in the range of 20-25%. With no significant valvular abnormality. She was treated with the antibiotic. And cardiac consultation requested as she has based lower ventricular rate of around 40. Cardiac care plan; Echocardiogram showed similar ejection fraction to the February 2023 With EF 20-25%, no significant valve abnormality and no pericardial effusion. From cardiac standpoint we will increase the ventricular rate to 60/to be set up by [facility] No further cardiac evaluation would be required continue medical treatment Jose Busby MD,[facility] senior administrative assistant HPI Consult Data Date of Consult: 04/20/25 HPI Narrative Reason for Consultation: Severe LV dysfunction/paced ventricular rhythm, lower rate 40 HPI Narrative: NICOLAS JACOBSON, is a 89 F who presents [facility] Medical History Diabetes Atrial fibrillation Congestive heart failure (CHF) DVT (deep venous thrombosis) Pacemaker Proximal humerus fracture Hemorrhagic shock Nonischemic cardiomyopathy Chronic systolic (congestive) heart failure Essential (primary) hypertension Secondary pulmonary 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, 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 Left bundle-branch block Ventricular tachycardia Cystocele with 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 DM2 (diabetes mellitus, type 2) Dyslipidemia Home Medications ?Medication ?Instructions ?Recorded ?Last Taken ?Type [id number] 8 mg-folic 400 1 tab PO DAILY supplement 02/19/24 04/18/25 History mcg-K 50 mcg-lutein 300 mcg tablet lisinopril 20 mg tablet 20 mg PO QHS cardiac 03/25/24 04/17/25 History acetaminophen 500 mg tablet 1,000 mg PO BID pain 08/11/24 04/18/25 History polyethylene glycol 3350 17 17 g PO DAILY 10/17/24 04/18/25 History gram/dose oral powder carvedilol 25 mg tablet 12.5 mg PO BID heart/bp 04/18/25 04/18/25 History Allergy/AdvReac Type Severity Reaction Status Date / Time No Known Allergies Allergy Verified 04/18/25 11:00 Family History Mother CAD (coronary artery disease) CHF (congestive heart failure) Father Diabetes Surgical History History of left heart catheterization (12/17/12) History of implantable cardiac defibrillator (ICD) (01/31/13) Cataract H/O: hysterectomy H/O tubal ligation History of hip replacement Social History household members: none Smoking Status: Never smoker alcohol intake: never substance use type: does not use caffeine: Yes Type: coffee Number of servings: 2 what type of physical activity do you participate in: none seatbelt use: always do you feel safe at home: Yes Physical Exam Cardio Cardio Narrative: Review of telemetry paced ventricular rhythm Patient confused Cardiac exam S1-S2 regular chest exam mildly diminished air entry bilateral Risk Stratification Risk Stratification Applicable: No Objective Data Vital Signs: Vital Signs Temp Pulse Resp BP Pulse Ox O2 Del Method O2 Flow Rate 97.7 F L 84 17 146/73 H 96 Room Air 2 04/20/25 09:21 04/20/25 09:21 04/20/25 09:21 04/20/25 09:21 04/20/25 09:30 04/20/25 09:30 04/18/25 16:30 Oxygen Flow Rate (L/min) 2 Oxygen Delivery Method Room Air Weight: 139 lb 1.787 oz Body Mass Index (BMI) 27.3 Intake & Output: Intake and Output for Last 24 Hours 04/18/25 04/19/25 04/20/25 23:59 23:59 23:59 Intake Total 2396.97 / 2396.97 1688.33 / 1688.33 1308.33 / 1308.33 Output Total 100 / 350 1400 / 1400 975 / 975 Balance 2296.97 / 2046.97 288.33 / 288.33 333.33 / 333.33 Lab / Micro Data 04/19/25 07:45 04/19/25 07:45 Labs: Laboratory Results - last 24 hr 04/20/25 04:24: POC Glucose 114 H 04/20/25 05:42: Magnesium 1.8 Micro: Microbiology 04/18/25 11:48 Urine Catheter - Catheter Urine Culture - Final Presumptive E. coli Alpha hemolytic organism 04/18/25 11:48 Urine Catheter - Catheter Legionella Antigen - Final 04/19/25 11:48 Urine Catheter - Joseph Streptococcus pneumoniae Antigen (M - Final Cardiology Labs/Tests 04/20/25 05:42: Magnesium 1.8 Rhythm: EKG: ECHO: Stress Test: Cardiac Cath: PCI: CT Surgery: Holter monitor: EPS: PPM: CXR: Chest CT Scan: Radiography Diagnostic Testing: Radiology Impression Echocardiogram 04/18/25 16:09 Interpretation Summary The estimated ejection fraction is 20-25 %. Severe LV systolic function ICD lead noted on Right side Similiar tp previous TTE in 02/2023 EF was 20% Ordering Physician: Haseeb Herr Referring Physician: Elgin Orozco MD Performed By: Esperanza Wisdom RCS
[2025-04-20 16:04] VITALS: BP 147/72; PULSE 77; RESP 17; TEMP 36.8; O2SAT 95
[2025-04-20] MEDS: 0.9% Saline Lock 10 ML Syringe IV (17:01)
--- NOTE | 2025-04-20 17:13 | PCM.PN.HOSP ---
Reason for Visit Chief Complaint: malaise. Subjective Subjective Patient was seen and examined today, monitor strips showed the patient goes into bradycardia at times with a rate of approximately 40 before the pacemaker fires. I will obtained labs on the patient for tomorrow morning, her vital signs are stable at this time. Objective Data Objective Data Vital Signs: Vital Signs Temp Pulse Resp BP Pulse Ox O2 Del Method O2 Flow Rate 98.2 F 77 17 147/72 H 95 Room Air 2 04/20/25 16:04 04/20/25 16:04 04/20/25 16:04 04/20/25 16:04 04/20/25 16:04 04/20/25 16:04 04/18/25 16:30 Oxygen Flow Rate (L/min) 2 Oxygen Delivery Method Room Air Weight: 63.1 kg Body Mass Index (BMI) 27.3 Intake & Output: Intake and Output for Last 24 Hours 04/18/25 04/19/25 04/20/25 23:59 23:59 23:59 Intake Total 2396.97 / 2396.97 1688.33 / 1688.33 2533.33 / 2533.33 Output Total 100 / 350 1400 / 1400 975 / 975 Balance 2296.97 / 2046.97 288.33 / 288.33 1558.33 / 1558.33 Lab / Micro Data 04/19/25 07:45 04/19/25 07:45 Labs: Laboratory Results - last 24 hr 04/20/25 04:24: POC Glucose 114 H 04/20/25 05:42: Magnesium 1.8 Micro: Microbiology 04/18/25 11:58 Blood Culture (Wb) - Right Wrist Blood Culture - Preliminary No growth in 48 hours. 04/18/25 11:58 Blood Culture (Wb) - Left Forearm Blood Culture - Preliminary No growth in 48 hours. 04/18/25 11:48 Urine Catheter - Catheter Urine Culture - Final Presumptive E. coli Alpha hemolytic organism 04/18/25 11:48 Urine Catheter - Catheter Legionella Antigen - Final 04/19/25 11:48 Urine Catheter - Joseph Streptococcus pneumoniae Antigen (M - Final Physical Exam Narrative alert and no apparent distress Constitutional Narrative: General Appearance: cooperative, well kempt and well developed Orientation / Consciousness: awake and oriented to person and place HEENT normocephalic, head/scalp atraumatic and moist oral mucous membranes Eyes PERRL, EOMs intact bilaterally and conjunctivae normal Neck supple, no JVD, thyroid normal and no carotid bruits General: trachea midline Resp normal respiratory effort, no retractions, no use of accessory muscles and clear to auscultation bilaterally Auscultation: Negative for rales, rhonchi or wheezes Cardio regular rate, regular rhythm, S1 normal heart sound, S2 normal heart sound, no murmurs, no rub and no gallops GI normal to inspection, nondistended, normoactive bowel sounds, soft to palpation, non-tender and non-distended Extremity no clubbing, cyanosis or edema Skin no rashes or lesions noted General Skin Exam: no breakdown Neuro CN's II-XII intact bilaterally, moves all extremities, no focal motor deficits and no sensory deficits noted Neuro Narrative: Sensorium / Orientation: awake and alert, she is oriented as to person and place Speech: speech normal Psych Psych Narrative: Patient is oriented as to person and place Assessment & Plan Assessment/Plan (1) Septic shock: PLAN: Plan 1. Septic shock secondary to UTI-patient's urine is growing out presumptive E. coli and and an alphahemolytic organism, she remains on cefepime, labs will be obtained in the morning #2 metabolic encephalopathy secondary to #1-this is much better today and the patient is more alert and appropriate. #3 Nonischemic cardiomyopathy-patient's EF is 20 to 25%, I have decided to place the patient back on her lisinopril, she is on carvedilol #4 essential hypertension-patient's hypertensive meds are being held at this time #5 bradycardia-patient was seen by cardiology today they will reset the pacemaker to a high rate, cardiology told me today that her pacemaker was set to 40. Total clinical time spent by myself addressing the patient's medical issues, reviewing all of her data, and collaborating the patient's care team: 35 minutes Charges/Coding Visit Charges Inpatient E&M: 42077 Subs Hosp L2
[2025-04-20 20:50] VITALS: BP 158/80; PULSE 74; RESP 18; TEMP 36.6; O2SAT 92
[2025-04-21 01:30] VITALS: BMI 27.2
[2025-04-21 02:50] VITALS: BP 148/70; PULSE 70; RESP 18; TEMP 36.5; O2SAT 96
[2025-04-21 07:05] LABS: Hematocrit 32.1 % (37-47); Hemoglobin 10.6 g/dL (12.0-15.0); Immature Granulocytes Count 0.050 X10^3/uL (0.0-0.0); Mean Corp Hgb Conc 33.0 g/dL (32-36); Mean Corpuscular Volume 92.0 fL (81-99); Mean Platelet Vol. 9.8 fl (6.2-12.0); NRBC Flagged by Analyzer 0 % (0-5); Platelet Count 184 K/mm3 (150-450); RBC Distribution Width CV 12.7 % (11.6-14.6); RBC Distribution Width SD 42.8 fl (35.1-43.9); Red Blood Count 3.49 M/mm3 (4.2-5.4); White Blood Count 9.9 K/mm3 (4.4-11.0)
[2025-04-21 07:41] LABS: Anion Gap 10 (5-15); BUN 23 mg/dL (4-19); BUN/Creat Ratio 31.7 RATIO (10-20); Calcium,Total 9.7 mg/dL (7.6-11.0); Carbon Dioxide 18.3 mmol/L (21.0-32.0); Chloride 109 mmol/L (98-108); Estimated Creatinine Clearance 39.48 ml/min (50-250); Glucose 112 mg/dL (70-99); Potassium 4.2 mmol/L (3.3-5.1)
--- NOTE | 2025-04-21 09:12 | CASEMGMT ---
Discharge Planning Updates sent to [facility]. Kerri Centeno DC Planning Asst.
[2025-04-21 09:39] VITALS: BP 156/75; PULSE 73; RESP 17; TEMP 36.7; O2SAT 96
[2025-04-21] MEDS: 0.9% Saline Lock 10 ML Syringe IV (09:44)
[2025-04-21] MEDS: Cefepime HCl 1 GM in 0.9% Normal Saline (50mL MB+) 50 ML IV (09:45)
--- NOTE | 2025-04-21 11:05 | TREXTCAR_ITS ---
Diet Diet Order/Speech Therapy: INPATIENT Hospital Diet / Speech Therapy Order(s) 04/18/25 16:09 Diet: Cardiac - Heart Healthy Food consistency:: Regular Liquid Consistency:: Regular/Thin Routine Orders/Code Status Suppository Type: Dulcolax 10mg Suppository Frequency: Daily PRN DC O2, CPAP, BIPAP needs Home O2 Discharge instructions: No Therapies Extremity Affected:: Bilateral Lower Physical Therapy: Eval and Treat Occupational Therapy: Eval and Treat Speech Therapy: Eval and Treat Problem/Diagnosis (1) Septic shock: Status: Acute Code(s): A41.9 - Sepsis, unspecified organism; R65.21 - Severe sepsis with septic shock Allergies/Procedures Done in Hospital Allergies No Known Allergies Allergy (Verified 04/18/25 11:00) Type of Care/Length of Stay Estimated LOS: Convalescent Care Less Than 30 days Type of Care Needed: Senior Living/Assisted Living Rehab Potential: Good Prognosis: Good Additional Orders/Day of Discharge Day of Discharge: 04/21/25 Dietary and Speech Recommendations Dietitian Recommendations/Changes: Continue cardiac diet and 120ml EPHP TID with medpass. PO needs to be established. Will monitor weight trends. Discharge Plan Admission Admit Date/Time: 04/18/25 13:30 Attending Provider: Jona Goins Primary Care Provider: Elgin Orozco Consulting Providers: Haseeb Herr; Vidal Rhodes; Duarte Velazco; Faraz Porter; Edilberto Rendon; Rivera Gomez; Skyler Orellana; Osito Anderson; Stephanie Tyler; Renny Enamorado; Giovanny Kahn; Deshawn Hook; Autumn Salter; Jaguar Obrien; Faby Chew; Anmol,Corey; Adair Melo; Raymundo Fierro; Jak Garcia; Demetria Clement; Luis Dove; Tree Fragoso; Zoran Hdez; Jasen Haskins; Jose Busby; Sharad Morris Discharge Orders/Prescriptions Prescriptions: New sulfamethoxazole-trimethoprim [Bactrim DS] 800-160 mg tablet 1 tab PO BID 3 Days Qty: 6 0RF Continued polyethylene glycol 3350 17 gram/dose powder 17 g PO DAILY jsscpbrk-owj-mtjc-FA-vit K-lut 8 mg iron-400 mcg-50 mcg tablet 1 tab PO DAILY acetaminophen 500 mg tablet 1,000 mg PO BID Changed carvedilol 25 mg tablet 12.5 mg PO BID 3 Days Qty: 0 0RF Rx Instructions: Hold for heart less than 50 or systolic blood pressure less than 100 mmHg. Held lisinopril 20 mg tablet 20 mg PO QHS Hold Instructions: Hold for 3 days while patient is taking Bactrim DS. Referrals / Follow Up: Elgin Orozco MD [Primary Care Provider] - Disposition Disposition (needs filled in before D/C Order can be placed): Assisted Living
--- NOTE | 2025-04-21 11:05 | PCM.DC.SUM ---
Providers Date of Admission: 04/18/25 Date of Discharge: 04/21/25 Primary Care Physician: Dr. Elgin Orozco MD Consultations 04/18/25 16:09 Consult: Control Engineer / Pulmonary Medicine Routine Consulting Provider: Intensivists/Pulmonary Med Reason for Consult: septic shock EMERGENT Consult: No Notified: Yes Date Notified: 04/18/25 Time Notified: 13:52 Method of Notification: Verbal 04/20/25 11:04 Consult: Cardiology Routine Consulting Provider: Jose Bubsy Reason for Consult: bradycardia EMERGENT Consult: No Notified: Yes Date Notified: 04/20/25 Time Notified: 11:05 Method of Notification: Verbal Reason For Visit: SEPTIC SHOCK Diagnosis Discharge Diagnosis (1) Septic shock: Status: Acute Code(s): A41.9 - Sepsis, unspecified organism; R65.21 - Severe sepsis with septic shock Plan 89-year-old female was admitted for septic shock secondary to UTI with symptom of not feeling well. She had other medical problems including chronic systolic heart failure. Her hospital stay is further described below 1. Septic shock secondary to UTI-patient's urine is growing out presumptive E. coli and and an alphahemolytic organism, on IV cefepime during hospital course. Urine culture shows presumptive E. coli 80,000 7000 colonies it is pansensitive ESBL therefore patient discharged on 3 more days of treatment he is to complete antibiotic regimen. Hold lisinopril to avoid hyperkalemia. #2 metabolic encephalopathy secondary to #1-this is much better today and the patient is more alert and appropriate. 04/21: Encephalopathy is resolved. #3 Nonischemic cardiomyopathy-patient's EF is 20 to 25%, she is on carvedilol, continued. Hold lisinopril while patient is taking Bactrim DS #4 essential hypertension-patient's hypertensive meds are being held at this time #5 bradycardia-patient was seen by cardiology. Patient was seen by Dr. Boyd yesterday. I discussed with candy forming machine operator Dr. Lunsford. He said that her defibrillator is set at 40 but there is no acute need for further intervention with the pacemaker setting therefore patient can be discharged. Discharge medication reconciliation done. Discharge follow-up instructions completed. Discharge process discussed with the patient and all questions were answered to patient's satisfaction. Follow with PCP in 1 to 2 weeks Total time spent, exact 35 minutes on discharge meds reconciliation, examination, coordination of care with nurses and ancillary staff, review of imaging and blood test and discussion with the patient on follow-up instructions. Medications at Discharge Home Medications lygsotjx-rtof-qypd 8 mg-folic 400 mcg-K 50 mcg-lutein 300 mcg tablet 1 tab PO DAILY supplement 02/19/24 lisinopril 20 mg tablet 20 mg PO QHS cardiac 03/25/24 Held on 04/21/25. Instructions: Hold for 3 days while patient is taking Bactrim DS. acetaminophen 500 mg tablet 1,000 mg PO BID pain 08/11/24 polyethylene glycol 3350 17 gram/dose oral powder 17 g PO DAILY 10/17/24 carvedilol 25 mg tablet 12.5 mg (1/2 x 25 mg) PO BID heart/bp 3 days #0 tabs 04/21/25 sulfamethoxazole 800 mg-trimethoprim 160 mg tablet (Bactrim DS) 1 tab PO BID 3 days #6 tabs 04/21/25 Physical Exam Narrative Seen and examined. Patient did not have any shock. Discussed with Dr. Lunsford. Depilatory suggested below 40 to give shock but patient is good to be discharged. Physical exam: General: Alert, Oriented x3, Cooperative HEENT: Atraumatic, PERRLA, EOMI, Normocephalic. Oral: No Gingival or Mucosal Lesions/ Ulcerations Neck: Supple, No JVD, Negative Carotid Bruits Chest wall/Lungs: Air entry diminished in bilateral lung bases. No crepitation/rhonchi Cardiovascular: Regular rate and rhythm, Normal S1,S2, No M/G/R Abdomen: Bowel Sounds Present, Soft, Non Tender, Non-Distended : No dysuria. No renal angle tenderness. No suprapubic tenderness. Extremities: No edema, Capillary Refill Less than 3 Seconds Skin: No rashes, No breakdown Musculoskeletal: No Tenderness to Palpation of Joints or Extremities Neurological: Cranial nerves II-XII grossly intact, DTR 2+/4. No acute focal neurological deficit. Psych/Mental Status: Normal Affect, Appropriate. Weight / BMI Weight Weight: 138 lb 10.732 oz Body Mass Index (BMI) 27.2 ABG / Lab / Microbiology Data 04/21/25 06:54 04/21/25 06:54 Laboratory: Laboratory Results - last 24 hr 04/21/25 06:54: WBC 9.9, RBC 3.49 L, Hgb 10.6 L, Hct 32.1 L, MCV 92.0, MCH 30.4, MCHC 33.0, RDW Std Deviation 42.8, RDW Coeff of Keren 12.7, Plt Count 184, MPV 9.8, Immature Gran % (Auto) 0.500, Neut % (Auto) 71.2 H, Lymph % (Auto) 24.0, Sanders % (Auto) 2.6, Eos % (Auto) 1.4, Baso % (Auto) 0.3, Absolute Neuts (auto) 7.1, Absolute Lymphs (auto) 2.38, Nucleated RBC % 0, Sodium 137, Potassium 4.2, Chloride 109 H, Carbon Dioxide 18.3 L, Anion Gap 10, BUN 23 H, Creatinine 0.71, Estim Creat Clear Calc 39.48 L, Est GFR (MDRD) Non-Af 81, BUN/Creatinine Ratio 31.7 H, Glucose 112 H, Calcium 9.7 Microbiology: Microbiology 04/18/25 11:58 Blood Culture (Wb) - Right Wrist Blood Culture - Preliminary No growth in 48 hours. 04/18/25 11:58 Blood Culture (Wb) - Left Forearm Blood Culture - Preliminary No growth in 48 hours. 04/18/25 11:48 Urine Catheter - Catheter Urine Culture - Final Presumptive E. coli Alpha hemolytic organism 04/18/25 11:48 Urine Catheter - Catheter Legionella Antigen - Final 04/19/25 11:48 Urine Catheter - Joseph Streptococcus pneumoniae Antigen (M - Final D/C Instructions Discharge Activity: Return to Normal Activity Weight Bearing Status: Weight bearing as tolerated Additional Activity Instructions: BMP after 5 days. Call your doctor if you observe: Fever of 101 or Higher, Coldness, Increased Pain, Numbness or Tingling, Change in Color, Inability to urinate, Inability to have a bowel movement, Shortness of breath, Dizziness, Fainting spells, Swelling in the ankles, Chest pain, Prolonged hiccupping, Increased palpitations (irregular heartbeat) and Calf discomfort DC O2, CPAP, BIPAP Needs Home O2 Discharge instructions: No When: IN 2 WEEKS Meaningful Use Info Meaningful Use Meaningful Use Diagnoses (Choose all that apply): None applicable Discharge Plan Admission Admit Date/Time: 04/18/25 13:30 Attending Provider: Jona Goins Primary Care Provider: Elgin Orozco Consulting Providers: Haseeb Herr; Vidal Rhodes; Duarte Velazco; Faraz Porter; Edilberto Rendon; Rivera Gomez; Skyler Orellana; Osito Anderson; Stephanie Tyler; Renny Enamorado; Giovanny Kahn; Deshawn Hook; Autumn Salter; Jaguar Obrien; Naian,Faby; Anmol,Corey; Adair Melo; Raymundo Fierro; Jka Garcia; Demetria Clement; Luis Dove; Tree Fragoso; Zoran Hdez; Jasen Haskins; Jose Busby; Sharad Morris Discharge Orders/Prescriptions Prescriptions: New sulfamethoxazole-trimethoprim [Bactrim DS] 800-160 mg tablet 1 tab PO BID 3 Days Qty: 6 0RF Continued polyethylene glycol 3350 17 gram/dose powder 17 g PO DAILY liezmwja-ozy-xloz-FA-vit K-lut 8 mg iron-400 mcg-50 mcg tablet 1 tab PO DAILY acetaminophen 500 mg tablet 1,000 mg PO BID Changed carvedilol 25 mg tablet 12.5 mg PO BID 3 Days Qty: 0 0RF Rx Instructions: Hold for heart less than 50 or systolic blood pressure less than 100 mmHg. Held lisinopril 20 mg tablet 20 mg PO QHS Hold Instructions: Hold for 3 days while patient is taking Bactrim DS. Referrals / Follow Up: Elgin Orozco MD [Primary Care Provider] - Disposition Disposition (needs filled in before D/C Order can be placed): Assisted Living Charges/Coding Visit Charges Inpatient E&M: 22627 Disch Hosp >30min
[2025-04-21] MEDS: Ensure Plus High Protein 120 ML LIQUID PO (12:35)
--- NOTE | 2025-04-21 13:12 | CASEMGMT ---
Discharge Planning Discharge orders, signed med list, and transport time sent to [facility]. Pt daughter will transport pt around 2p. Nursing, SW, and pt updated. Kerri Centeno DC Planning Asst.
--- NOTE | 2025-04-21 13:18 | PHA.DC.MR.R ---
Pharmacy [place] Med Reconciliation Pharmacy Service has performed discharge medication reconciliation for this patient. The patient's discharge medication list was reviewed for discrepancies and discrepancies were resolved. Medications at Discharge Home Medications okzpsmhh-fbwg-pzxy 8 mg-folic 400 mcg-K 50 mcg-lutein 300 mcg tablet 1 tab PO DAILY supplement 02/19/24 lisinopril 20 mg tablet 20 mg PO QHS cardiac 03/25/24 Held on 04/21/25. Instructions: Hold for 3 days while patient is taking Bactrim DS. acetaminophen 500 mg tablet 1,000 mg PO BID pain 08/11/24 polyethylene glycol 3350 17 gram/dose oral powder 17 g PO DAILY 10/17/24 carvedilol 25 mg tablet 12.5 mg (1/2 x 25 mg) PO BID heart/bp 3 days #0 tabs 04/21/25 sulfamethoxazole 800 mg-trimethoprim 160 mg tablet (Bactrim DS) 1 tab PO BID 3 days #6 tabs 04/21/25
[2025-04-21 13:36] VITALS: BP 140/85; PULSE 77; RESP 16; TEMP 36.7; O2SAT 97
--- NOTE | 2025-04-21 13:47 | NURSING ---
Attempted to call [facility] for report. No one answered the phone. Will try to call again.
--- NOTE | 2025-04-21 14:12 | NURSING ---
Attempted to call report to [facility]. No one answered the phone. Patient leaving with daughter at this time.
--- NOTE | 2025-04-21 16:29 | CHAPLAIN ---
Type of Pastoral Visit _x__ Initial Visit ___ Follow-up Visit ___ On-call Visit ___ General Patient Visit ___ Spiritual Assessment ___ Family Conference ___ Bereavement ___ Rapid Response ___ Code Blue ___ Other (describe below) Pastoral Care Referral From _x__ Patient ___ Family ___ Nurse ___ Physician ___ Supervisor [employer] ___ Bike Mechanic ___ Other (describe below) Sacrament/Intervention _x__ Active listening ___ Anointing ___ Orthodoxy ___ Bereavement ___ Communion ___ Kandi exploration ___ ___ Life review _x__ Prayer ___ Reconciliation ___ Sacrament of Sick _x__ Supportive presence ___ Wedding ___ Other (describe below) Pastoral Comments
== END 2025-04-21 14:15 | disposition home or self-care (01) | DRG 871 ==
LOC: ED 13:36 → ICU 18:35 → PCU 04-19 18:23 → ICU 04-21 07:24
PROVIDERS: Family Medicine; Internal Medicine; Physician Assistant; Emergency Provider Emergency Medicine; PCP Family Medicine; Visit Provider Internal Medicine
DX: A41.51 Sepsis due to Escherichia coli [E. coli] (principal); G93.41 Metabolic encephalopathy; R65.21 Severe sepsis with septic shock; I24.89 Other forms of acute ischemic heart disease; I50.22 Chronic systolic (congestive) heart failure; I42.8 Other cardiomyopathies; N17.9 Acute kidney failure, unspecified; N39.0 Urinary tract infection, site not specified; E11.9 Type 2 diabetes mellitus without complications; I11.0 Hypertensive heart disease with heart failure; I48.0 Paroxysmal atrial fibrillation; E78.5 Hyperlipidemia, unspecified; I25.10 Atherosclerotic heart disease of native coronary artery without angina pectoris; R00.1 Bradycardia, unspecified; R09.02 Hypoxemia; Z95.810 Presence of automatic (implantable) cardiac defibrillator; Z79.899 Other long term (current) drug therapy
CPT/HCPCS: 36415; 51702; 71045; 76770; 80048; 80053; 81001; 82962; 83605; 83735; 84484; 85025; 87040; 87086; 87088; 87186; 87449; 93005; 93308; 97110; 97162; 97166; 97535; 99285; A4216; C1751; J0696